=== PATIENT | male | born 1945 | race African-American/Black ===

== ENCOUNTER → 2017-04-11 | Outpatient (CLI) | payer OTHER ==
[~2017-04-11] MED LIST: ALLO300T80 PO; ASPI-435 PO; ATOR-54 PO; ENAL1TAB31 PO; INSHI7030 SC; INSHRIE SQ; MBC75 PO; METF1000 PO; METO50TA16 PO; NITR0.2D TD; NITR0.4S UT; TRIATAB3 PO; ZNTT/150 PO
[2017-04-11 17:34] LABS: HEMATOCRIT 29.7 % (42-52)
== END | disposition home or self-care (01) ==
LOC: C.LABSPEC 17:15
DX: Z01.89 Encounter for other specified special examinations (principal)

== ENCOUNTER 2019-04-15 20:55 | Inpatient (IN) ==
[2019-04-15 22:06] LABS: Basophils # (auto) 0.01 K/uL (0-0.2); Basophils % (auto) 0.2 %; Eosinophils # (auto) 0.03 K/uL (0-0.5); Eosinophils % (auto) 0.7 %; Hematocrit (blood only) 41.5 % (42-52); Hemoglobin 13.1 g/dL (14.0-18.0); Immature Granulocytes # (auto) 0.01 K/uL (0.00-0.02); Immature Granulocytes % (auto) 0.2 %; Lymphocytes # (auto) 0.81 K/uL (1.2-3.4); Lymphocytes % (auto) 18.5 %; Mean Corpuscular Hemoglobin 26.5 pg (25-34); Mean Corpuscular Hgb Conc 31.6 g/dL (32-36); Monocytes # (auto) 0.37 K/uL (0.11-0.59); Monocytes % (auto) 8.5 %; Neutrophils # (auto) 3.14 K/uL (1.4-6.5); Neutrophils % (auto) 71.9 %; Platelet Count 218 K/uL (130-400); RDW Coefficient of Variation 16.7 % (11.5-14.5); RDW Standard Deviation 51.1 fL (36.4-46.3); Red Blood Count 4.94 M/uL (4.7-6.1); White Blood Count 4.37 K/uL (4.8-10.8)
--- NOTE | 2019-04-15 22:09 | XRay Report ---
XR chest 1V portable HISTORY: Atypical Chest Pain COMPARISON: None. FINDINGS: The lungs are clear. No pleural effusions. No pneumothorax. The heart is mildly enlarged. N o evidence for pulmonary edema. IMPRESSION: Mild cardiomegaly. Electronically signed by: Valentin Zaman M.D. 04/15/2019 10:08 PM
[2019-04-15 22:17] LABS: INR 1.1 (0.9-1.1); Partial Thromboplastin Ratio 0.9; Partial Thromboplastin Time 23.9 Seconds (21.0-31.0); Prothrombin Time 11.6 Seconds (9.0-12.0)
[2019-04-15 22:22] LABS: Albumin Level 3.3 gm/dl (3.4-5.0); BUN Creatinine Ratio 14.3 (10-20); Calcium 9.2 mg/dl (8.5-10.1); Creatinine Clr Calc Pharmacy 64.9 ml/min; Est GFR (African American) 77.7; Est GFR (Non-African American) 67.1
[2019-04-15 22:41] LABS: Albumin Globulin Ratio 0.7 (0.9-2); Bilirubin,Total 0.8 mg/dl (0.2-1); Globulin 4.5 gm/dl (2.5-4.0); Total Protein 7.8 gm/dl (6.4-8.2); Troponin I 0.079 ng/ml (0-0.045)
[2019-04-15] MEDS ORDERED: ASPIRIN CHEW 324 MG PO STA (22:58)
[2019-04-15] MEDS ORDERED: SODIUM CHLORIDE 0.9% 1000ML 1,000 ML IV SCH (23:00)
[2019-04-15] MEDS ORDERED: Heparin IV Low Dose WITH Bolus STA (23:07)
[2019-04-15] MEDS ORDERED: HEPARIN SODIUM/DEXTROSE 25,000 UNITS/500 ML BAG IV SCH (23:15)
[2019-04-15] MEDS ORDERED: HEPARIN SOD (PORCINE) 1000 UNIT/ML 10 ML VIAL ONE (23:28)
[2019-04-15 23:49] LABS: Magnesium 2.2 mg/dl (1.8-2.4); Thyroid Stimulating Hormone 1.18 uIu/ml (0.300-4.500)
[2019-04-16] MEDS ORDERED: COUGH DROP (SUGAR FREE) LOZ 24 LOZ/1 BOX BUCCAL STA (00:01)
--- NOTE | 2019-04-16 00:02 | History & Physical Report ---
Date of Service April 16, 2019 Assessment & Plan (1) Acute non-ST elevation myocardial infarction (NSTEMI): hx CAD status post stent (1997, 1999 [facility]) hypertension, BP on the lower side hyperlipidemia on statin Rx DM 2 insulin requiring, BSG on the lower side at the ER GERD on H2 iron Anemia, unknown duration ? Possibly from intermittent hemorrhoidal bleed as per patient account past tobacco abuse PCU Aspirin, beta-iron (decrease maintenance dose for now given borderline BP), statin Rx Continue IV heparin started at the ER for ACS TTE, Cardiology consult RE ACS Check hemoglobin A1c, lipid profile Hold basal insulin for now given borderline hypoglycemia, ISS BG goal 140-80 Anemia work-up DVT prophylaxis. Heparin Full code History of Present Illness Chief Complaint: Chest pain Primary Care Provider: DESIRAE Quinn History obtained from patient and records. Medical history significant for CAD status post stent (1997, 1999 [facility]), hypertension, hyperlipidemia, gout, DM 2 insulin requiring, GERD, past tobacco abuse. Patient experience achy left-sided chest pain with diaphoresis and shortness of breath to anginal attack around 7:45 PM. Compliant with medications. No cough symptoms. Legs a little more swollen than usual. Has not seen a ham doctor for several years now. Left-sided throat discomfort without ear discomfort for a few days now. No fever, no chills. Currently pain-free at the emergency room. 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 Verified 04/16/19 00:15 SULFA Allergy Mild UNKNOWN Uncoded 02/02/19 11:59 Home Medications Home Medications Medication Instructions Recorded Confirmed Type alendronate 70 mg PO WK 02/02/19 04/15/19 History allopurinol 150 mg PO QAM 02/02/19 04/15/19 History aspirin 81 mg PO QAM 02/02/19 04/15/19 History atorvastatin 20 mg PO QAM 02/02/19 04/15/19 History calcium carbonate-vitamin D3 1 tab PO QAM 02/02/19 04/16/19 History [Calcium 600 + D(3)] duloxetine 60 mg PO QAM 02/02/19 04/16/19 History enalapril maleate 20 mg PO QAM 02/02/19 04/16/19 History metformin 1,000 mg PO BID 02/02/19 04/16/19 History metoprolol tartrate 100 mg PO BID 02/02/19 04/16/19 History nitroglycerin [Nitro-Dur] 1 patch TRANSDERMAL QAM 02/02/19 04/16/19 History nitroglycerin [Nitrostat] 0.4 mg SUBLINGUAL UD PRN 02/02/19 04/16/19 History acetaminophen 325 mg PO BID 04/15/19 04/15/19 History insulin NPH and regular human 20 unit SUBCUT QAM 04/16/19 04/16/19 History [Humulin 70/30 U-100 Insulin] insulin NPH and regular human 28 unit SUBCUT QPM 04/16/19 04/16/19 History [Humulin 70/30 U-100 Insulin] insulin regular human [Humulin R 1 sliding scale dose SUBCUT BID 04/16/19 04/16/19 History Regular U-100 Insuln] omeprazole 40 mg PO BID 04/16/19 04/16/19 History phenylephrine HCl [Hemorrhoidal 1 supp MT TID 04/16/19 04/16/19 History Suppository] ranitidine HCl 150 mg PO BID 04/16/19 04/16/19 History triamterene-hydrochlorothiazid 1 tab PO DAILY 04/16/19 04/16/19 History Past Med/Surg History Medical History CAD (coronary artery disease) Colon polyps Diabetes Diverticulitis Hyperlipidemia Surgical History History of heart artery stent Social History Preferred Language: Lao Visual Impairment: No Limitations 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: Normal Relief Pilot Required: No Beliefs That Will Affect Care: None Current Living Situation: Other Current Living Situation Comment: correctional facility Other Information That Helps Us Care for You: No Feels Safe at Home: Yes Smoking Status: Former smoker Tobacco Type: cigarettes ; Do You Dip or Chew Tobacco: No ; Hx Alcohol Use: No Hx Substance Use: No Review of Systems Review of Systems: As per HPI, all 10 systems reviewed, all other ROS negative Physical Exam Physical Exam: GENERAL: Comfortable, pleasant, no respiratory distress, obese SKIN: Normal color, warm HEENT: Bespectacled, pink palpebral conjunctivae, no ptosis, dry buccal mucosa, minimal pharyngeal congestion NECK : Supple, short neck, no tenderness CHEST : CTA, no tenderness HEART : RRR, no obvious murmurs ABDOMEN: Some distention, nontender EXTREMITIES : Bilateral LE swelling, no LE tenderness, no other conspicuous deformities noted NEUROLOGIC : Coherent, no facial asymmetry, no other gross focality Results & Data Vital Signs (Past 12 Hours) Vital Signs Temp Pulse Pulse Resp BP BP Pulse Ox 04/15/19 23:43 95 04/15/19 23:41 79 20 98/76 L 93 04/15/19 23:08 73 20 102/73 97 04/15/19 23:01 75 17 102/73 95 04/15/19 23:00 70 24 96 04/15/19 22:30 71 28 H 83/61 L 99 04/15/19 22:10 73 28 H 95 04/15/19 22:00 73 27 H 98/72 L 96 04/15/19 21:55 72 27 H 85/62 L 97 04/15/19 21:50 71 14 95 04/15/19 21:40 74 28 H 04/15/19 21:30 74 26 H 04/15/19 21:25 97 04/15/19 21:22 71 12 04/15/19 21:06 36.4 C L 73 26 H 95/69 L 97 04/15/19 21:05 75 24 95/69 L Laboratory Results Laboratory Results WBC 4.37 K/uL (4.8-10.8) L 04/15/19 21:48 RBC 4.94 M/uL (4.7-6.1) 04/15/19 21:48 Hgb 13.1 g/dL (14.0-18.0) L 04/15/19 21:48 Hct 41.5 % (42-52) L 04/15/19 21:48 MCV 84.0 fL (80-100) 04/15/19 21:48 MCH 26.5 pg (25-34) 04/15/19 21:48 MCHC 31.6 g/dL (32-36) L 04/15/19 21:48 RDW Std Deviation 51.1 fL (36.4-46.3) H 04/15/19 21:48 RDW Coeff of Maria Guadalupe 16.7 % (11.5-14.5) H 04/15/19 21:48 Plt Count 218 K/uL (130-400) 04/15/19 21:48 MPV 10.0 fL (7.4-10.4) 04/15/19 21:48 Immature Gran % (Auto) 0.2 % 04/15/19 21:48 Neut % (Auto) 71.9 % 04/15/19 21:48 Lymph % (Auto) 18.5 % 04/15/19 21:48 [place] % (Auto) 8.5 % 04/15/19 21:48 Eos % (Auto) 0.7 % 04/15/19 21:48 Baso % (Auto) 0.2 % 04/15/19 21:48 Immature Gran # (Auto) 0.01 K/uL (0.00-0.02) 04/15/19 21:48 Neut # (Auto) 3.14 K/uL (1.4-6.5) 04/15/19 21:48 Lymph # (Auto) 0.81 K/uL (1.2-3.4) L 04/15/19 21:48 [place] # (Auto) 0.37 K/uL (0.11-0.59) 04/15/19 21:48 Eos # (Auto) 0.03 K/uL (0-0.5) 04/15/19 21:48 Baso # (Auto) 0.01 K/uL (0-0.2) 04/15/19 21:48 PT 11.6 Seconds (9.0-12.0) 04/15/19 21:48 INR 1.1 (0.9-1.1) 04/15/19 21:48 APTT 23.9 Seconds (21.0-31.0) 04/15/19 21:48 PTT Ratio 0.9 04/15/19 21:48 Sodium 139 mmol/L (136-145) 04/15/19 21:48 Potassium 4.0 mmol/L (3.5-5.1) 04/15/19 21:48 Chloride 106 mmol/L (98-107) 04/15/19 21:48 Carbon Dioxide 28 mmol/L (21-32) 04/15/19 21:48 Anion Gap 5.0 (3-11) 04/15/19 21:48 BUN 15 mg/dl (7-18) 04/15/19 21:48 Creatinine 1.07 mg/dl (0.6-1.4) 04/15/19 21:48 Est Cr Clr Drug Dosing 64.9 ml/min 04/15/19 21:48 Est GFR ( Amer) 77.7 04/15/19 21:48 Est GFR (Non-Af Amer) 67.1 04/15/19 21:48 BUN/Creatinine Ratio 14.3 (10-20) 04/15/19 21:48 Glucose 72 mg/dl (70-99) 04/15/19 21:48 Calcium 9.2 mg/dl (8.5-10.1) 04/15/19 21:48 Magnesium 2.2 mg/dl (1.8-2.4) 04/15/19 21:48 Total Bilirubin 0.8 mg/dl (0.2-1) 04/15/19 21:48 AST 45 U/L (15-37) H 04/15/19 21:48 ALT 43 U/L (12-78) 04/15/19 21:48 Alkaline Phosphatase 179 U/L (45-117) H 04/15/19 21:48 Troponin I 0.079 ng/ml (0-0.045) H* 04/15/19 21:48 Total Protein 7.8 gm/dl (6.4-8.2) 04/15/19 21:48 Albumin 3.3 gm/dl (3.4-5.0) L 04/15/19 21:48 Globulin 4.5 gm/dl (2.5-4.0) H 04/15/19 21:48 Albumin/Globulin Ratio 0.7 (0.9-2) L 04/15/19 21:48 TSH 1.180 uIu/ml (0.300-4.500) 04/15/19 21:48 Diagnostic Findings Chest x-ray : Mild cardiomegaly EKG as per my interpretation : Rate 70, NSR, normal axis, T wave inversion anterolateral leads
[2019-04-16] MEDS ORDERED: ACETAMINOPHEN 325 MG TAB PO PRN (01:07)
[2019-04-16] MEDS ORDERED: CARBOHYDRATES FOR HYPOGLYCEMIA PO PRN (01:07)
[2019-04-16] MEDS ORDERED: DEXTROSE 50% 50 ML SYRINGE IV PRN (01:07)
[2019-04-16] MEDS ORDERED: NITROGLYCERIN SL 0.4 MG/TAB TAB SL PRN ×2 (01:07)
[2019-04-16] MEDS ORDERED: GLUCAGON FOR INJ 1 MG VIAL SQ PRN (01:07)
[2019-04-16] MEDS ORDERED: GLUCOSE 40% GEL 15 GM TUBE PO PRN (01:07)
[2019-04-16] MEDS ORDERED: ALBUT/IPRATROP 3MG/0.5MG NEB 3 ML VIAL NEB STA (01:07)
[2019-04-16] MEDS ORDERED: GLUCOSE 10 TABS/TUBE PO PRN (01:07)
--- NOTE | 2019-04-16 01:43 | Emergency Department Note ---
Entered by Vic Smith acting as a scribe for History of Present Illness General Chief complaint: Chest Pain Stated complaint: DIZZINESS, CHEST PAIN Time Seen by Provider: 04/15/19 22:05 Source: patient Limitations: no limitations History of Present Illness Onset (ago): hour(s) (earlier today) Location: chest Pain Consistency: + constant Quality: + constant Relieved By: + other (belching) Associated symptoms: + other (belching, trouble breathing) The patient is a 89 year old male who presents to the Emergency Room with complaints of constant chest pain starting earlier today. The patient states he was sitting down when he started to have chest pain. He notes he has difficulty breathing. He states he has been belching and belching makes the pain better. Home Medications Home Medications Medication Instructions Recorded Confirmed Type alendronate 70 mg PO WK 02/02/19 04/15/19 History allopurinol 150 mg PO QAM 02/02/19 04/15/19 History aspirin 81 mg PO QAM 02/02/19 04/15/19 History atorvastatin 20 mg PO QAM 02/02/19 04/15/19 History calcium carbonate-vitamin D3 1 tab PO QAM 02/02/19 04/16/19 History [Calcium 600 + D(3)] duloxetine 60 mg PO QAM 02/02/19 04/16/19 History enalapril maleate 20 mg PO QAM 02/02/19 04/16/19 History metformin 1,000 mg PO BID 02/02/19 04/16/19 History metoprolol tartrate 100 mg PO BID 02/02/19 04/16/19 History nitroglycerin [Nitro-Dur] 1 patch TRANSDERMAL QAM 02/02/19 04/16/19 History nitroglycerin [Nitrostat] 0.4 mg SUBLINGUAL UD PRN 02/02/19 04/16/19 History acetaminophen 325 mg PO BID 04/15/19 04/15/19 History insulin NPH and regular human 20 unit SUBCUT QAM 04/16/19 04/16/19 History [Humulin 70/30 U-100 Insulin] insulin NPH and regular human 28 unit SUBCUT QPM 04/16/19 04/16/19 History [Humulin 70/30 U-100 Insulin] insulin regular human [Humulin R 1 sliding scale dose SUBCUT BID 04/16/19 04/16/19 History Regular U-100 Insuln] omeprazole 40 mg PO BID 04/16/19 04/16/19 History phenylephrine HCl [Hemorrhoidal 1 supp FL TID 04/16/19 04/16/19 History Suppository] ranitidine HCl 150 mg PO BID 04/16/19 04/16/19 History triamterene-hydrochlorothiazid 1 tab PO DAILY 04/16/19 04/16/19 History Allergies Allergy/AdvReac Type Severity Reaction Status Date / Time Penicillins Allergy Unknown . 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 and A total of 10 systems reviewed and were otherwise negative Physical Exam Vital Signs Vital Signs - 24 hr 04/15/19 21:05 04/15/19 21:06 04/15/19 21:22 Temperature 36.4 C L Temperature Source Oral Sepsis Recent Fever Within 48 Hours No Sepsis Action Taken by Nursing No Action Required Pulse Rate 75 73 71 Pulse Rate [Right Finger] Pulse Rate from SpO2 Sensor Respiratory Rate 24 26 H 12 Respiratory Depth Shallow Respiratory Pattern Tachypnea Blood Pressure 95/69 L 95/69 L Blood Pressure [Right Radial Artery] Blood Pressure Mean 77 77 Blood Pressure Mean [Right Radial Artery] Pulse Oximetry 97 Oxygen Delivery Method Room Air Oxygen Flow Rate 04/15/19 21:25 04/15/19 21:30 04/15/19 21:40 Temperature Temperature Source Sepsis Recent Fever Within 48 Hours Sepsis Action Taken by Nursing Pulse Rate 74 74 Pulse Rate [Right Finger] Pulse Rate from SpO2 Sensor Respiratory Rate 26 H 28 H Respiratory Depth Respiratory Pattern Blood Pressure Blood Pressure [Right Radial Artery] Blood Pressure Mean Blood Pressure Mean [Right Radial Artery] Pulse Oximetry 97 Oxygen Delivery Method Room Air Oxygen Flow Rate 04/15/19 21:50 04/15/19 21:55 04/15/19 22:00 Temperature Temperature Source Sepsis Recent Fever Within 48 Hours Sepsis Action Taken by Nursing Pulse Rate 71 72 73 Pulse Rate [Right Finger] Pulse Rate from SpO2 Sensor 71 72 73 Respiratory Rate 14 27 H 27 H Respiratory Depth Respiratory Pattern Blood Pressure 85/62 L 98/72 L Blood Pressure [Right Radial Artery] Blood Pressure Mean 69 80 Blood Pressure Mean [Right Radial Artery] Pulse Oximetry 95 97 96 Oxygen Delivery Method Oxygen Flow Rate 04/15/19 22:10 04/15/19 22:30 04/15/19 23:00 Temperature Temperature Source Sepsis Recent Fever Within 48 Hours Sepsis Action Taken by Nursing Pulse Rate 73 71 70 Pulse Rate [Right Finger] Pulse Rate from SpO2 Sensor 74 71 71 Respiratory Rate 28 H 28 H 24 Respiratory Depth Respiratory Pattern Blood Pressure 83/61 L Blood Pressure [Right Radial Artery] Blood Pressure Mean 68 Blood Pressure Mean [Right Radial Artery] Pulse Oximetry 95 99 96 Oxygen Delivery Method Oxygen Flow Rate 04/15/19 23:01 04/15/19 23:08 04/15/19 23:41 Temperature Temperature Source Sepsis Recent Fever Within 48 Hours Sepsis Action Taken by Nursing Pulse Rate 75 Pulse Rate [Right Finger] 73 79 Pulse Rate from SpO2 Sensor 75 Respiratory Rate 17 20 20 Respiratory Depth Respiratory Pattern Blood Pressure 102/73 Blood Pressure [Right Radial Artery] 102/73 98/76 L Blood Pressure Mean 82 Blood Pressure Mean [Right Radial Artery] 82 83 Pulse Oximetry 95 97 93 Oxygen Delivery Method Room Air Nasal Cannula Oxygen Flow Rate 4 04/15/19 23:43 Temperature Temperature Source Sepsis Recent Fever Within 48 Hours Sepsis Action Taken by Nursing Pulse Rate Pulse Rate [Right Finger] Pulse Rate from SpO2 Sensor Respiratory Rate Respiratory Depth Respiratory Pattern Blood Pressure Blood Pressure [Right Radial Artery] Blood Pressure Mean Blood Pressure Mean [Right Radial Artery] Pulse Oximetry 95 Oxygen Delivery Method Nasal Cannula Oxygen Flow Rate 4 GENERAL: He is oriented to person, place, and time. He appears well-developed and well-nourished. He does not appear distressed. HENT: Exam performed. - Head: Normocephalic and atraumatic. - Right Ear: External ear normal. No mastoid tenderness. - Left Ear: External ear normal. No mastoid tenderness. - Mouth/Throat: The oropharynx is clear and moist. No trismus in the jaw. No dental abscesses or uvula swelling. No oropharyngeal exudate or tonsillar abscesses. EYES: Conjunctivae and EOM are normal. Pupils are equal, round, and reactive to light. Right eye exhibits no discharge. Left eye exhibits no discharge. No scleral icterus. NECK: Normal range of motion. Neck supple. No JVD present. No spinous process tenderness present. No carotid bruit present. No rigidity. No tracheal deviation and normal range of motion present. No Brudzinski's sign and no Kernig's sign noted. CV: Normal rate, regular rhythm, normal heart sounds and intact distal pulses. There is no peripheral edema. Palpable radial pulses bue. PULM/CHEST: Effort normal and breath sounds normal. No respiratory distress. No stridor. He has no wheezes. He has no rales. - Chest Wall: He exhibits no tenderness. ABD: The abdomen is soft. Bowel sounds are normal. He has no distension. No mass is present. There is no tenderness. There is no rebound, no guarding, no Pineda's sign and no tenderness at McBurney's point. Rovsig negative. MUSC/SKEL: Normal range of motion. There is no peripheral edema, tenderness or deformity. LYMPH: No cervical adenopathy. NEURO: He is alert and oriented to person, place, and time. He has normal strength. No cranial nerve deficit or sensory deficit. Coordination and gait normal. GCS eye subscore is 4. GCS verbal subscore is 5. GCS motor subscore is 6. Cerebellar tests wnl. SKIN: Skin is warm and dry. He is not diaphoretic. PSYCH: He has a normal mood and affect. Behavior is normal. Judgment and thought content normal. Course 2228: The patient was evaluated in room C8, and a complete history and physical examination were performed. EMR reviewed. Patient had a stress test on 09/16/18 which showed left ventricular ejection fracture at 23%. Lexiscan did no induce chest pain or EKG changes. Patient had a prior inferior preinfarction ischemia. 2310:. Vital signs stable. Labs show elevated troponin. Repeat EKG showed sinus rhythm at 74 BPM. FL and QRS intervals within normal limits. QTc is [address] elevation. No ST depression. TWI in lead 1 avL. Patient will be started on heparin drip and admitted to the hospital service for NSTEMI. I discussed the patient's case with Dr. Jana Lyn Hospitalist. He will evaluate the patient for further management. Administered Medications Heparin Sodium/Dextrose (Heparin Sodium/Dextrose) 25,000 units in 500 mls @ 19 mls/hr IV .Q24H NICHOLAS; Protocol Stop: 05/15/19 23:14 Last Admin: 04/15/19 23:34 Dose: 950 units/hr, 19 mls/hr Documented by: [id number] Cosigned by: [id number] Discontinued Medications Albuterol (Duoneb) 3 ml NEB NOW STA Stop: 04/16/19 01:08 Last Admin: 04/16/19 01:31 Dose: 3 ml Documented by: [id number] Aspirin (Aspirin) 324 mg PO NOW STA Stop: 04/15/19 22:59 Last Admin: 04/15/19 23:11 Dose: Not Given Documented by: [id number] Heparin Sodium (Porcine) (Heparin Iv Bolus) Confirm Administered Dose 10,000 units .ROUTE .STK-MED ONE Stop: 04/15/19 23:29 Last Admin: 04/15/19 23:35 Dose: 4,000 units Documented by: [id number] Cosigned by: [id number] Heparin Sodium/Dextrose () 1 ea N/A NOW STA; Protocol Stop: 04/15/19 23:08 Last Admin: 04/16/19 00:30 Dose: Not Given Documented by: [id number] Sodium Chloride (Nss 1000ml) 1,000 mls @ 125 mls/hr IV .Q8H NICHOLAS Stop: 05/15/19 22:59 Last Admin: 04/15/19 23:12 Dose: 125 mls/hr Documented by: [id number] Menthol (Nice) 1 richard BUCCAL NOW STA Stop: 04/16/19 00:02 Last Admin: 04/16/19 00:09 Dose: 1 richard Documented by: [id number] Medical Decision Making Medical Records Attestation: I reviewed the patient's medical records. Home Medications Current Medication List: was personally reviewed by me Laboratory Data Attestation: I reviewed the patient's lab results. Result diagrams: 04/15/19 21:48 04/15/19 21:48 Lab Results 04/15/19 04/15/19 04/15/19 Range/Units 21:48 21:48 21:48 WBC 4.37 L (4.8-10.8) K/uL RBC 4.94 (4.7-6.1) M/uL Hgb 13.1 L (14.0-18.0) g/dL Hct 41.5 L (42-52) % MCV 84.0 (80-100) fL MCH 26.5 (25-34) pg MCHC 31.6 L (32-36) g/dL RDW Std Deviation 51.1 H (36.4-46.3) fL RDW Coeff of Maria Guadalupe 16.7 H (11.5-14.5) % Plt Count 218 (130-400) K/uL MPV 10.0 (7.4-10.4) fL Immature Gran % (Auto) 0.2 % Neut % (Auto) 71.9 % Lymph % (Auto) 18.5 % [place] % (Auto) 8.5 % Eos % (Auto) 0.7 % Baso % (Auto) 0.2 % Immature Gran # (Auto) 0.01 (0.00-0.02) K/uL Neut # (Auto) 3.14 (1.4-6.5) K/uL Lymph # (Auto) 0.81 L (1.2-3.4) K/uL [place] # (Auto) 0.37 (0.11-0.59) K/uL Eos # (Auto) 0.03 (0-0.5) K/uL Baso # (Auto) 0.01 (0-0.2) K/uL PT 11.6 (9.0-12.0) Seconds INR 1.1 (0.9-1.1) APTT 23.9 (21.0-31.0) Seconds PTT Ratio 0.9 Sodium 139 (136-145) mmol/L Potassium 4.0 (3.5-5.1) mmol/L Chloride 106 (98-107) mmol/L Carbon Dioxide 28 (21-32) mmol/L Anion Gap 5.0 (3-11) BUN 15 (7-18) mg/dl Creatinine 1.07 (0.6-1.4) mg/dl Est Cr Clr Drug Dosing 64.9 ml/min Est GFR ( Amer) 77.7 Est GFR (Non-Af Amer) 67.1 BUN/Creatinine Ratio 14.3 (10-20) Glucose 72 (70-99) mg/dl Calcium 9.2 (8.5-10.1) mg/dl Magnesium 2.2 (1.8-2.4) mg/dl Total Bilirubin 0.8 (0.2-1) mg/dl AST 45 H (15-37) U/L ALT 43 (12-78) U/L Alkaline Phosphatase 179 H (45-117) U/L Troponin I 0.079 H* (0-0.045) ng/ml Total Protein 7.8 (6.4-8.2) gm/dl Albumin 3.3 L (3.4-5.0) gm/dl Globulin 4.5 H (2.5-4.0) gm/dl Albumin/Globulin Ratio 0.7 L (0.9-2) TSH 1.180 (0.300-4.500) uIu/ml Imaging Data Radiologist's Impression: Radiology results as stated below per my review and the radiologist's interpretation: XR chest 1V portable HISTORY: Atypical Chest Pain COMPARISON: None. FINDINGS: The lungs are clear. No pleural effusions. No pneumothorax. The heart is mildly enlarged. No evidence for pulmonary edema. IMPRESSION: Mild cardiomegaly. Electronically signed by: Valentin Zaman M.D. 04/15/2019 10:08 PM ECG Data Attestation: I personally reviewed and interpreted this ECG as follows: Indication: chest pain Rate (beats per minute): 71 Rhythm: sinus rhythm ECG Intervals/blocks: Normal QRS and Prolonged QT (Qtc is [address] ECG [address] segments: T-wave inversions (lead 1 in avL) ECG Findings: Other (No ST depression. No ST elevation. Normal FL interval. ) Additional Comments: Repeat EKG: Sinus rhythm at 74 BPM. FL and QRS interval within normal limits. QTc interval is [address] elevation. No ST depression. TWI in Lead 1 avL. Blood Pressure Blood Pressure Findings: Low blood pressure Blood Pressure Disposition: further management by hospitalist YECENIA Narrative 2228: The patient was evaluated in room C8, and a complete history and physical examination were performed. EMR reviewed. Patient had a stress test on 09/16/18 which showed left ventricular ejection fracture at 23%. Lexiscan did no induce chest pain or EKG changes. Patient had a prior inferior preinfarction ischemia. 2310:. Vital signs stable. Labs show elevated troponin. Repeat EKG showed sinus rhythm at 74 BPM. FL and QRS intervals within normal limits. QTc is [address] elevation. No ST depression. TWI in lead 1 avL. Patient will be started on heparin drip and admitted to the hospital service for NSTEMI. I discussed the patient's case with Dr. Jana Lyn Hospitalist. He will evaluate the patient for further management. Impression & Plan Acute non-ST elevation myocardial infarction (NSTEMI) Critical Care Time Critical Care Time: Yes Total Critical Care Time: 42 I have personally spent greater than 42 minutes of critical care time in the direct management of this patient. This includes bedside care, interpretation of diagnostic studies, and testing, discussion with consultants, patient, and family members, and other required patient management activities. This 42 minutes is in excess of all separately billable procedures. Discharge Plan Visit Data *Final* Discharge Date/Time: 04/16/19 00:44 Chief Complaint: Chest Pain Stated Complaint: DIZZINESS, CHEST PAIN ED Provider: Ezequiel Chavez Discharge Problem: Acute non-ST elevation myocardial infarction (NSTEMI) Patient Disposition: Admitted As Inpatient Discharge Instructions Interventions: ED Discharge Assessment Last Done: 04/16/19 00:44 The scribe's documentation has been prepared under my direction and personally reviewed by me in its entirety. I confirm that the note above accurately reflects all work, treatment, procedures, and medical decision making performed by me.
[2019-04-16] MEDS: INSULIN ASPART 100 UNITS/ML 3 ML PEN SC SCH ×5 (01:58→21:00)
[2019-04-16] MEDS: TRAMADOL HCL 50 MG TABLET PO PRN (03:20)
[2019-04-16] MEDS ORDERED: DEXTROSE 5% 1,000 ML IV SCH (04:00)
[2019-04-16 06:10] LABS: Hematocrit (blood only) 40.2 % (42-52); Hemoglobin 13.2 g/dL (14.0-18.0); Immature Granulocytes # (auto) 0.01 K/uL (0.00-0.02); Immature Granulocytes % (auto) 0.2 %; Lymphocytes # (auto) 0.73 K/uL (1.2-3.4); Lymphocytes % (auto) 18.1 %; Mean Corpuscular Hemoglobin 26.9 pg (25-34); Mean Corpuscular Hgb Conc 32.8 g/dL (32-36); Mean Platelet Volume 9.4 fL (7.4-10.4); Monocytes # (auto) 0.32 K/uL (0.11-0.59); Monocytes % (auto) 7.9 %; Neutrophils # (auto) 2.98 K/uL (1.4-6.5); Neutrophils % (auto) 73.8 %; Platelet Count 205 K/uL (130-400); RDW Coefficient of Variation 16.6 % (11.5-14.5); RDW Standard Deviation 49.6 fL (36.4-46.3); Reticulocyte % 1.1 % (0.5-2.0); Reticulocytes # 0.05 10^6/uL (0.02-0.10); White Blood Count 4.04 K/uL (4.8-10.8)
[2019-04-16 06:14] LABS: Estimated Average Glucose 197 mg/dl; Hemoglobin A1C 8.5 % (4.5-5.6)
[2019-04-16 06:20] LABS: BUN Creatinine Ratio 17.3 (10-20); Calcium 8.6 mg/dl (8.5-10.1); Creatinine Clr Calc Pharmacy 58.3 ml/min; Est GFR (African American) 67.7; Est GFR (Non-African American) 58.4; Potassium 4.2 mmol/L (3.5-5.1)
[2019-04-16 06:27] LABS: Ferritin 73.3 ng/ml (8-388); Troponin I 0.127 ng/ml (0-0.045)
--- NOTE | 2019-04-16 06:35 | XRay Report ---
XR chest 1V portable HISTORY: 74 years-old Male low o2 acute hypoxia COMPARISON: Chest radiograph 04/15/2019 TECHNIQUE: Portable AP view of the chest FINDINGS: Cardiac silhouette is mildly enlarged, unchanged. No overt pulmonary edema. There is no pneumothorax, pleural effusion, focal airspace consolidation or overt pulmonary edema. There is unchanged mild phillip nting of the costophrenic angles. IMPRESSION: Cardiomegaly without acute process. The above report was generated using voice recognition software. It may contain grammatical, syntax o r spelling errors. Electronically signed by: Jimmy Cruz M.D. 04/16/2019 6:34 AM
[2019-04-16] MEDS ORDERED: ALBUMIN 25% 50 ML IV ONE (06:36)
[2019-04-16 06:37] LABS: Partial Thromboplastin Time 54.5 Seconds (21.0-31.0)
[2019-04-16] MEDS ORDERED: SODIUM CHLORIDE 0.9% 500 ML IV ONE (06:46)
[2019-04-16] MEDS ORDERED: PERFLUTREN LIPID MICROSPHERE (DEFINITY) IV ONE (07:19)
[2019-04-16] MEDS ORDERED: D5W AND LACTATED RINGERS 1,000 ML IV SCH (08:00)
[2019-04-16 08:15] LABS: Folate (Folic Acid) 20.65 ng/ml (>5.38)
[2019-04-16] MEDS: DULOXETINE HCL 60 MG CAP PO SCH (08:59)
[2019-04-16] MEDS: ASPIRIN 81 MG ECTAB PO SCH (09:00)
[2019-04-16] MEDS: allopurinoL 300 MG TAB PO SCH (09:00)
[2019-04-16] MEDS: ATORVASTATIN 20 MG TAB PO SCH (09:00)
[2019-04-16] MEDS: METOPROLOL TARTRATE 25 MG TAB PO SCH ×2 (09:00→20:10)
--- NOTE | 2019-04-16 09:52 | Cardiology Consultation ---
Date of Consultation April 16, 2019 Assessment & Plan (1) Cardiomyopathy: (2) Acute non-ST elevation myocardial infarction (NSTEMI): Patient presents with symptoms of progressive easy fatigability, exertional shortness of breath, lower extremity edema that has a committed over the last f ew weeks, and chest discomfort. Echocardiogram revealed severe left ventricular systolic dysfunction with ejection fraction of less than 20%, mild left ventricular chamber dilatation, moderate to severe tricuspid regurgitation moderate severe mitral regurgitation. The etiology of the mitral regurgitation appears to be due to the cardiomyopathy with LV chamber dilatation and tethering of the sub-mitral valve apparatus with resultant mall coaptation and a centrally directed mitral regurgitation jet. Patient was hypotensive overnight, and was treated with gentle IV fluids at 80 mL/h. At present, he is feeling better, and his blood pressure is normalized, and I would stop his IV fluids now that we have his ejection fraction data. The patient is not aware of having a past history of low ejection fraction. In 2016 and outside echocardiogram revealed LVEF of 50 to 55%, in September 2018, nuclear stress testing performed at this institution revealed gated SPECT LVEF of 23%. Patient does have a mild elevation in his troponin levels of 0.079 and 0.127ng /ml, and subtle changes on his EKG with T wave inversions in the precordial leads and the high lateral leads that are new compared to several months ago. At present, I believe the patient needs to be stabilized from a medical standpoint. He has not been on appropriate evidence-based treatment for (presumed ischemic) cardia myopathy. He has not been on a beta-iron for example. He has been on TIMMY inhibitor. Short acting metoprolol tartrate has been initiated for now. Continue unfractioned heparin. It is critical to determine what his coronary anatomy was on the prior cardiac catheterization 1997 and 1999. I therefore completed a records release for Mindy. I called to the [facility] institution, and no catheterization anatomy data was available in the records there. We will keep patient n.p.o. further time being pending reassessment and review of his repeat EKG. History of Present Illness Attending Physician: Romaine Guzman MD History of Present Illness Jacobo Chavez is a 74 year old male -[place] inmate at [facility] seen in cardiology consultation per the request of Dr. Gonzalez for the evaluation of exertional shortness of breath, chest discomfort, concern for non- ST segment elevation myocardial infarction. The patient reports prior myocardial infarction and stenting on 2 occasions, the anatomical details are not available at this time. He states his initial cardiac catheterization took place in [place] in 1997 with stent placement at that time and he had a second cardiac catheterization with stent in [place] in 1999. He does not recall ever being diagnosed with a "cardiomyopathy "or congestive heart failure in the past. An attempt to obtain more detailed records regarding the patient, I called over to the [facility] and spoke to Dr Renae there. There is a report on a transthoracic echocardiogram performed in the intermediate in 2016 that described normal LVEF in the range of 50 to 55%. The patient apparently underwent a pharmacologic nuclear stress test at [facility] in September 2018. The patient tells me he had this test performed due to exertional shortness of breath. The report describes an inferolateral infarct with mild francine-infarct ischemia, and a calculated ejection fraction of 23%. The patient states that he has been having progressive shortness of breath for the last few weeks culminating in shortness of breath, a "anxious "feeling "and chest discomfort yesterday. EKG performed on presentation to the emergency room last night revealed sinus rhythm with low amplitude T wave inversions noted in the high lateral leads I and aVL, as well as the precordial leads that was new compared to a prior tracing on file performed in January of this year. A repeat EKG performed later last evening was relatively unchanged compared to the initial with ongoing new subtle T wave changes. A repeat to be performed this morning is currently pending. During my assessment of the patient in room 221-1 he was comfortable, and lying completely flat. He denies any current chest discomfort. Heparin was infusing as well as IV fluids at 80 mL's per hour. Transient hypotension was noted last night with systolic blood pressures in the 80s to 90s, this is improved with his most recent reading of 115/85 this morning. Echocardiogram was performed this morning and reviewed independently by the undersigned revealing findings of septal dyskinesis and severe global left ventricular hypokinesis to akinesis otherwise with an ejection fraction in the range of less than 20%. Moderate to severe mitral regurgitation was present. Moderate to severe tricuspid regurgitation was present with an estimated pulmonary artery systolic pressure of 45 mmHg. Family history-notable for diabetes, denies family history of ischemic heart disease Social history-inmate, denies illicit drug use. States he has been adherent to his current medication regimen. Allergies Allergy/AdvReac Type Severity Reaction Status Date / Time Penicillins Allergy Unknown . Verified 04/16/19 00:15 SULFA Allergy Mild UNKNOWN Uncoded 02/02/19 11:59 Home Medications Home Medications Medication Instructions Recorded Confirmed Type alendronate 70 mg PO WK 02/02/19 04/15/19 History allopurinol 150 mg PO QAM 02/02/19 04/15/19 History aspirin 81 mg PO QAM 02/02/19 04/15/19 History atorvastatin 20 mg PO QAM 02/02/19 04/15/19 History calcium carbonate-vitamin D3 1 tab PO QAM 02/02/19 04/16/19 History [Calcium 600 + D(3)] duloxetine 60 mg PO QAM 02/02/19 04/16/19 History enalapril maleate 20 mg PO QAM 02/02/19 04/16/19 History metformin 1,000 mg PO BID 02/02/19 04/16/19 History metoprolol tartrate 100 mg PO BID 02/02/19 04/16/19 History nitroglycerin [Nitro-Dur] 1 patch TRANSDERMAL QAM 02/02/19 04/16/19 History nitroglycerin [Nitrostat] 0.4 mg SUBLINGUAL UD PRN 02/02/19 04/16/19 History acetaminophen 325 mg PO BID 04/15/19 04/15/19 History insulin NPH and regular human 20 unit SUBCUT QAM 04/16/19 04/16/19 History [Humulin 70/30 U-100 Insulin] insulin NPH and regular human 28 unit SUBCUT QPM 04/16/19 04/16/19 History [Humulin 70/30 U-100 Insulin] insulin regular human [Humulin R 1 sliding scale dose SUBCUT BID 04/16/19 04/16/19 History Regular U-100 Insuln] omeprazole 40 mg PO BID 04/16/19 04/16/19 History phenylephrine HCl [Hemorrhoidal 1 supp MO TID 04/16/19 04/16/19 History Suppository] ranitidine HCl 150 mg PO BID 04/16/19 04/16/19 History triamterene-hydrochlorothiazid 1 tab PO DAILY 04/16/19 04/16/19 History Patient History Medical History CAD (coronary artery disease) Colon polyps Diabetes Diverticulitis Hyperlipidemia Surgical History History of heart artery stent Social History Preferred Language: Belarusian Visual Impairment: No Limitations 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: Normal Life Educator Required: No Beliefs That Will Affect Care: None Current Living Situation: Other Current Living Situation Comment: correctional facility Other Information That Helps Us Care for You: No Feels Safe at Home: Yes Smoking Status: Former smoker Tobacco Type: cigarettes ; Do You Dip or Chew Tobacco: No ; Hx Alcohol Use: No Hx Substance Use: No Review of Systems Review of Systems: All systems reviewed & are unremarkable except as noted in HPI & below Physical Exam Physical Exam: Temp Pulse Resp BP Pulse Ox 36.4 C L 78 18 115/85 95 04/16/19 07:33 04/16/19 07:33 04/16/19 07:33 04/16/19 07:33 04/16/19 07:33 Constitutional: WD/WN, vitals as above Respiratory: Auscultation: + diminished lung sounds (Mildly diminished breath sounds the bases); no crackles, no rales, no rhonchi and no wheezes Cardiovascular: Rate/Rhythm: regular rate Heart Sounds: + murmur (I/mineral 6 systolic murmur) Vessels: + JVD (Jugular venous distention to 3 cm) Extremities: + edema (Trace bilateral lower leg edema) Gastrointestinal (Abdomen): normal bowel sounds, soft, nontender, no hepatosplenomegaly Neurologic: PERRL, EOMI, accommodation nl, no face palsy, no dysarthria Results & Data Vital Signs (Past 12 Hours) Vital Signs Temp Pulse Pulse Resp BP BP BP 04/16/19 07:33 36.4 C L 78 18 115/85 04/16/19 03:00 36.4 C L 77 20 132/91 04/16/19 01:32 69 04/16/19 01:31 74 18 04/16/19 01:05 36.4 C L 66 20 106/82 04/16/19 01:00 68 20 04/16/19 00:37 76 20 116/90 04/15/19 23:43 04/15/19 23:41 79 20 98/76 L 04/15/19 23:08 73 20 102/73 04/15/19 23:01 75 17 102/73 04/15/19 23:00 70 24 04/15/19 22:30 71 28 H 83/61 L 04/15/19 22:10 73 28 H 04/15/19 22:00 73 27 H 98/72 L 04/15/19 21:55 72 27 H 85/62 L 04/15/19 21:50 71 14 04/15/19 21:40 74 28 H Pulse Ox 04/16/19 07:33 95 04/16/19 03:00 95 04/16/19 01:32 04/16/19 01:31 97 04/16/19 01:05 96 04/16/19 01:00 96 04/16/19 00:37 96 04/15/19 23:43 95 04/15/19 23:41 93 04/15/19 23:08 97 04/15/19 23:01 95 04/15/19 23:00 96 04/15/19 22:30 99 04/15/19 22:10 95 04/15/19 22:00 96 04/15/19 21:55 97 04/15/19 21:50 95 04/15/19 21:40 Laboratory Results Cardiac Enzymes 04/15/19 04/16/19 Range/Units 21:48 05:50 AST 45 H (15-37) U/L Troponin I 0.079 H* 0.127 H* (0-0.045) ng/ml Coagulation 04/15/19 04/16/19 Range/Units 21:48 05:50 PT 11.6 (9.0-12.0) Seconds APTT 23.9 54.5 H* (21.0-31.0) Seconds Lipids 04/16/19 Range/Units 05:50 Triglycerides 32 (0-150) mg/dl Cholesterol 98 (0-200) mg/dl HDL Cholesterol 47 mg/dl Cholesterol/HDL Ratio 2 CBC 04/15/19 04/16/19 Range/Units 21:48 05:50 WBC 4.37 L 4.04 L (4.8-10.8) K/uL RBC 4.94 4.90 (4.7-6.1) M/uL Hgb 13.1 L 13.2 L (14.0-18.0) g/dL Hct 41.5 L 40.2 L (42-52) % Plt Count 218 205 (130-400) K/uL Neut # (Auto) 3.14 2.98 (1.4-6.5) K/uL Lymph # (Auto) 0.81 L 0.73 L (1.2-3.4) K/uL [place] # (Auto) 0.37 0.32 (0.11-0.59) K/uL Eos # (Auto) 0.03 0.00 (0-0.5) K/uL Baso # (Auto) 0.01 0.00 (0-0.2) K/uL Comprehensive Metabolic Panel 04/15/19 04/16/19 Range/Units 21:48 05:50 Sodium 139 139 (136-145) mmol/L Potassium 4.0 4.2 (3.5-5.1) mmol/L Chloride 106 107 (98-107) mmol/L Carbon Dioxide 28 24 (21-32) mmol/L BUN 15 21 H (7-18) mg/dl Creatinine 1.07 1.20 (0.6-1.4) mg/dl Glucose 72 85 (70-99) mg/dl Calcium 9.2 8.6 (8.5-10.1) mg/dl AST 45 H (15-37) U/L ALT 43 (12-78) U/L Alkaline Phosphatase 179 H (45-117) U/L Total Protein 7.8 (6.4-8.2) gm/dl Albumin 3.3 L (3.4-5.0) gm/dl Intake and Output 04/15/19 04/16/19 04/16/19 22:59 06:59 14:59 Intake Total 1771.750 / 1771.750 Balance 1771.750 / 1771.750 Intake: IV 1771.750 / 1771.750 D5w and Lactated Ringers 1,000 121.333 / 121.333 ml @ 80 mls/hr IV .[id number] [facility] Rx#:[id number] HEPARIN SODIUM/DEXTROSE 25,000 150.417 / 150.417 units In 500 ml @ 950 UNITS/HR 19 mls/hr IV .Q24H [facility] Rx#: [id number] Nss 1000ML 1,000 ml @ 125 mls/ 1000 / 1000 hr IV .Q8H [facility] Rx#:[id number] Nss 500 ml @ 500 mls/hr IV .Q1H 500 / 500 ONE Rx#:[id number] Other: Other Intake Source NPO/CHIPS Weight 92.8 kg 92.3 kg Medications Administered Current Inpatient Medications Acetaminophen (Tylenol) 650 mg PO Q4H PRN PRN Reason: Pain or Fever Stop: 05/16/19 01:06 Allopurinol (Zyloprim) 150 mg PO [facility] Stop: 05/16/19 08:59 Last Admin: 04/16/19 09:00 Dose: 150 mg Documented by: Aspirin (Ecotrin Ectab) 81 mg PO [facility] Stop: 05/16/19 08:59 Last Admin: 04/16/19 09:00 Dose: 81 mg Documented by: Atorvastatin Calcium (Lipitor) 20 mg PO [facility] Stop: 05/16/19 08:59 Last Admin: 04/16/19 09:00 Dose: 20 mg Documented by: Dextrose (Dextrose 50%) 25 - 50 ml IV UD PRN; Protocol PRN Reason: Hypoglycemia Protocol Stop: 05/16/19 01:06 Duloxetine HCl (Cymbalta) 60 mg PO [facility] Stop: 05/16/19 08:59 Last Admin: 04/16/19 08:59 Dose: 60 mg Documented by: Glucagon (Glucagen) 1 mg SQ UD PRN; Protocol PRN Reason: Hypoglycemia Protocol Stop: 05/16/19 01:06 Glucose (Glucose 40%) 15 - 30 gm PO UD PRN; Protocol PRN Reason: Hypoglycemia Protocol Stop: 05/16/19 01:06 Glucose (Dex4 Glucose) 4 - 8 tabs PO UD PRN; Protocol PRN Reason: Hypoglycemia Protocol Stop: 05/16/19 01:06 Heparin Sodium/Dextrose (Heparin Sodium/Dextrose) 25,000 units in 500 mls @ 19 mls/hr IV .Q24H [facility]; Protocol Stop: 05/15/19 23:14 Last Titration: 04/16/19 07:29 Dose: 950 units/hr, 19 mls/hr Documented by: Promethazine HCl 12.5 mg/ (Sodium Chloride) 50.5 mls @ 202 mls/hr IV Q6H PRN PRN Reason: Nausea And Vomiting Stop: 05/16/19 01:06 Insulin Aspart (Novolog Flexpen) 0 units SC ACHS [facility] Stop: 05/16/19 01:06 Last Admin: 04/16/19 07:56 Dose: Not Given Documented by: Menthol (Nice) 1 richard BUCCAL Q2H PRN PRN Reason: Sore Throat Stop: 05/16/19 01:06 Metoprolol Tartrate (Lopressor) 12.5 mg PO BID [facility] Stop: 05/16/19 08:59 Last Admin: 04/16/19 09:00 Dose: 12.5 mg Documented by: Miscellaneous (Carbohydrates For Hypoglycemia) 15 - 30 gm PO UD PRN PRN Reason: Hypoglycemia Protocol Stop: 05/16/19 01:06 Nitroglycerin (Nitrostat) 0.4 mg SL UD PRN PRN Reason: Chest Pain Stop: 05/16/19 01:06 Tramadol HCl (Ultram) 25 mg PO Q4H PRN PRN Reason: Pain Stop: 05/16/19 01:06 Last Admin: 04/16/19 03:20 Dose: 25 mg Documented by: Outpatient medication list acetaminophen Alendronate Allopurinol Aspirin 81 mg daily Atorvastatin 20 mg daily Calcium plus vitamin D Duloxetine 60 mg daily in the morning Enalapril 20 mg daily in the morning Insulin NPH/regular 70/30: 20 units in a.m., 28 units in p.m. Metformin 100 mg twice daily Transdermal nitroglycerin patch 0.4 mg/h every a.m. Omeprazole 40 mg twice daily Ranitidine 150 mg twice daily Triamterene/hydrochlorothiazide 1 tablet by mouth daily
[2019-04-16] MEDS ORDERED: NiCARDipine HCL INJ 2.5 MG/ML 10 ML AMP ONE (12:01)
[2019-04-16] MEDS ORDERED: HEPARIN (PORCINE) 1000 UNIT/ML 10 ML (CATH LAB USE ONLY) ONE (12:01)
[2019-04-16] MEDS ORDERED: NITROGLYCERIN/D5W 100MCG/ML 20ML SYR ONE (12:02)
[2019-04-16] MEDS ORDERED: fentaNYL citrate 100 MCG/2 ML VIAL ONE (12:02)
[2019-04-16] MEDS ORDERED: MIDAZOLAM HCL 1 MG/ML 2ML VIAL ONE (12:02)
--- NOTE | 2019-04-16 13:08 | Post Anesthesia Assessment ---
Date of Service April 16, 2019 Post Sedation Assessment Vital Signs Temp Pulse Pulse Resp BP BP BP 04/16/19 11:33 97.7 F 73 18 119/79 04/16/19 08:00 70 04/16/19 07:33 97.5 F L 78 18 115/85 04/16/19 03:00 97.5 F L 77 20 132/91 04/16/19 01:32 69 04/16/19 01:31 74 18 04/16/19 01:05 97.5 F L 66 20 106/82 04/16/19 01:00 68 20 04/16/19 00:37 76 20 116/90 04/15/19 23:43 04/15/19 23:41 79 20 98/76 L 04/15/19 23:08 73 20 102/73 04/15/19 23:01 75 17 102/73 04/15/19 23:00 70 24 04/15/19 22:30 71 28 H 83/61 L 04/15/19 22:10 73 28 H 04/15/19 22:00 73 27 H 98/72 L 04/15/19 21:55 72 27 H 85/62 L 04/15/19 21:50 71 14 04/15/19 21:40 74 28 H 04/15/19 21:30 74 26 H 04/15/19 21:25 04/15/19 21:22 71 12 04/15/19 21:06 97.5 F L 73 26 H 95/69 L 04/15/19 21:05 75 24 95/69 L Pulse Ox 04/16/19 11:33 100 04/16/19 08:00 04/16/19 07:33 95 04/16/19 03:00 95 04/16/19 01:32 04/16/19 01:31 97 04/16/19 01:05 96 04/16/19 01:00 96 04/16/19 00:37 96 04/15/19 23:43 95 04/15/19 23:41 93 04/15/19 23:08 97 04/15/19 23:01 95 04/15/19 23:00 96 04/15/19 22:30 99 04/15/19 22:10 95 04/15/19 22:00 96 04/15/19 21:55 97 04/15/19 21:50 95 04/15/19 21:40 04/15/19 21:30 04/15/19 21:25 97 04/15/19 21:22 04/15/19 21:06 97 04/15/19 21:05 Recovery Score Activity: Moves 4 extremities Respiration: Deep Breath/Cough Circulation: +/-20% PreAnes Value Consciousness: Fully Awake Oxygen Saturation: O2 needed for >90% Discharge Sedation Level of Care: Fast Track Phase II Post Sedation Plan On clinical assessment, the patient appears to have tolerated the sedation without complications. Patient is recovering as anticipated. Patient will continue to be monitored by nursing and may be discharged when sedation discharge criteria are met per below protocol. Upon Completions of procedure and additional 15 minutes continue every 5 minute vital signs and the P.A.R. score; then discharge to a Phase I or Fast Track to Phase II per the following guidelines: * Discharge Patient to appropriate Phase II area if PAR is 8 or greater or return to pre- procedure baseline. The post - procedure orders will be as directed. * If PAR score is less than 8 or not return to pre-procedure baseline then patient will follow Phase I monitoring till PAR is reached for Phase II. The Phase I may be done in procedure room or may call to secure a Phase I area. * If naloxone or flumazenil are used for reversal, hold in Phase I for continued monitoring from when last reversal dose was given for a minimum of 60 minutes or longer pending the nurse and/or physician discretion of patient condition before discharge to Phase II. Please call the Sedation Physician to re-evaluate and complete post-note for discharge to Phase II area. Do NOT discharge from procedure sedation or Phase 1 until post- sedation evaluation note is complete by procedure /sedation MD Sedation Discharge Instructions to be given to the patient at discharge to home.
--- NOTE | 2019-04-16 13:08 | Pre Anesthesia Assessment ---
Date of Service April 16, 2019 Pre Sedation Assessment Vital Signs Temp Pulse Pulse Resp BP BP BP 04/16/19 11:33 97.7 F 73 18 119/79 04/16/19 08:00 70 04/16/19 07:33 97.5 F L 78 18 115/85 04/16/19 03:00 97.5 F L 77 20 132/91 04/16/19 01:32 69 04/16/19 01:31 74 18 04/16/19 01:05 97.5 F L 66 20 106/82 04/16/19 01:00 68 20 04/16/19 00:37 76 20 116/90 04/15/19 23:43 04/15/19 23:41 79 20 98/76 L 04/15/19 23:08 73 20 102/73 04/15/19 23:01 75 17 102/73 04/15/19 23:00 70 24 04/15/19 22:30 71 28 H 83/61 L 04/15/19 22:10 73 28 H 04/15/19 22:00 73 27 H 98/72 L 04/15/19 21:55 72 27 H 85/62 L 04/15/19 21:50 71 14 04/15/19 21:40 74 28 H 04/15/19 21:30 74 26 H 04/15/19 21:25 04/15/19 21:22 71 12 04/15/19 21:06 97.5 F L 73 26 H 95/69 L 04/15/19 21:05 75 24 95/69 L Pulse Ox 04/16/19 11:33 100 04/16/19 08:00 04/16/19 07:33 95 04/16/19 03:00 95 04/16/19 01:32 04/16/19 01:31 97 04/16/19 01:05 96 04/16/19 01:00 96 04/16/19 00:37 96 04/15/19 23:43 95 04/15/19 23:41 93 04/15/19 23:08 97 04/15/19 23:01 95 04/15/19 23:00 96 04/15/19 22:30 99 04/15/19 22:10 95 04/15/19 22:00 96 04/15/19 21:55 97 04/15/19 21:50 95 04/15/19 21:40 04/15/19 21:30 04/15/19 21:25 97 04/15/19 21:22 04/15/19 21:06 97 04/15/19 21:05 Cardiovascular RRR, no murmur, no edema Respiratory normal respiratory effort, lungs clear to auscultation Pre-Sedation Airway Assessment Smoking Status: Former smoker Hx Sleep Apnea: No Hx Difficult Intubation: No Short, Thick Neck: No Thyromental Distance: > or= 3.5 Finger Breadths Mallampati Class: II ASA: ASA3 Procedure Planning Contraindications for Sedation: none Current Medications Reviewed: Yes Notes The planned sedation has been discussed with the patient. Informed Consent was obtained. I have identified the patient, determined the appropriateness of sedation and have assessed the patient immediately prior to the procedure. All medicine(s) and interventions are by my order.
--- NOTE | 2019-04-16 13:20 | Cardiac Catheterization ---
[facility] Data: Slash Trimmer Cardiac Status Clinical evaluation leading to the procedure CAD Presenation: Non STEMI Anginal Classification: CCS III Heart Failure: NYHA Class: CCS IV Cardiogenic Shock within 24 Hours: No Cardiac Arrest within 24 Hours: No Imaging Studies Past 6 Months: Yes Stress Studies Past 6 Months: No Diagnostic Physicians Name: Lauri Lozano MD Status: Elective Closure Device Percutaneous Entry Location: Radial Closure Device: Radial Band Recommendations: Medical Therapy and/or Counseling Intraprocedure Events Significant Disection: No Perforation: No Cardiac Cath Procedure Full Procedure Date April 16, 2019 Pre-Procedure Diagnosis Pre-Procedure Diagnosis: Acute Coronary Syndrome and Cardiomyopathy AUC Score AUC Score: 7 Post-Procedure Diagnosis Post-Procedure Diagnosis: Severe CAD and Elevated Intracardiac Pressures Procedure(s) Performed Procedure(s) Performed: Coronary Angiography and Left Heart Cath Rehab Assistant Lauri Lozano MD Supervisor Building Maintenance(s) Blake Estimated Blood Loss Estimated Blood Loss: 5 Medication(s) Medication(s): Fentanyl, Lidocaine 1%, Nitroglycerin and Versed Summary of Findings Indication: Severe LV dysfunction, mildly elevated troponin Access: 6 Fr right radial artery Catheters: [place], pigtail Findings: LM -large caliber vessel without significant disease LAD -large caliber vessel, 30% proximal to mid disease 30 to 40% latemid at takeoff of second septal, severe 80 to 90% disease in small, distal segment as wraps around apex. First diagonal 100% occluded and fills retrograde via left to left collaterals. Circumflex -moderate caliber vessel. High first OM with 95% proximal stenosis. Small mid to distal circumflex with moderate diffuse disease. RCA -dominant, 100% proximal chronic total occlusion. PDA fills via left to right collaterals LVEDP - 27 Arterial Closure: TR band Summary: 1. Severe multivessel coronary artery disease -100% proximal RCA chronic total occlusion. PDA fills via left to right collaterals. 95% moderate caliber high OM1 80 to 90% small, distal LAD as wraps around apex. 100% ostial first diagonal fills via left to left collaterals. 2. Elevated intracardiac filling pressure Recommendations: Guideline directed medical therapy for cardiomyopathy, diuretics, antianginal therapy per Dr. Roldan Hemodynamics Rest Ao:: 108/77/109 Final Ao: 122/76/95 LV: 116/27 Recommendations Recommendations: Medical Therapy and/or Counseling Specimens Specimens: None Radiation Exposure (mGy) 1111 Contrast (mls) 40 Fluids (cc crystalloids) Fluids (cc crystalloids): 58 Drains Drains: None Anesthesia Moderate Procedural Complication(s) None I attest to the content of the Intraoperative Record and any orders documented therein. Any exceptions are noted below.
--- NOTE | 2019-04-16 21:38 | Hospitalist Progress Note ---
Date of Service April 16, 2019 Assessment & Plan (1) Acute non-ST elevation myocardial infarction (NSTEMI): Presented to ED with chest pain. History of coronary artery disease with remote history of PCI, details not available. Initial troponin 0 0.079. Repeat troponin 0 0.127. Initial EKG demonstrated sinus rhythm at 70/minute with anterolateral T wave changes. Treated with aspirin, IV heparin, metoprolol, and atorvastatin. Cardiology consulted. Echocardiogram demonstrated global hypokinesis of left ventricle with estimated LVEF less than 20%. Cardiac catheterization was recommended and demonstrated multivessel disease with complete occlusion of RCA with [id number] collaterals, 95% stenosis OM1, 80 to 90% stenosis of distal LAD, complete occlusion of ostial first diagonal wi th collaterals. Medical management was recommended. Ongoing management per Cardiology. (2) Cardiomyopathy: Chest x-ray showed cardiomegaly without pulmonary edema. Echocardiogram demonstrated LVEF less than 20%. Probable ischemic cardiomyopathy. Management per Cardiology. (3) Hypertension: Titration of cardiovascular medications per Cardiology. (4) Dyslipidemia: LDL-C = 45. Continue atorvastatin. (5) Diabetes mellitus type 2 with complications: Diabetes mellitus type 2, complicated by ischemic heart disease. Usually managed with insulin 70/30, regular insulin, and metformin. Random glucose at time of admission was 72. Hemoglobin A1c 8.5. Glycemic management per basal/bolus insulin protocol. Fasting blood sugar today = 82. (6) GERD (gastroesophageal reflux disease): Continue PPI. (7) Anemia: Hemoglobin at time of admission was 13.1. MCV 84. Iron 56, TIBC 341, transferrin 277, ferritin 73, folate 20, vitamin B12 1054. Patient reports rectal bleeding attributed to hemorrhoids. Colonoscopy should be considered if not recently done, but cardiac risk may be prohibitive. (8) DVT prophylaxis: Initially received IV heparin for non-STEMI. Transition to SQ heparin. Ambulate. (9) Discharge planning issues: Anticipated return to [facility] under care of medical team there. Will need ongoing follow-up with Cardiology. Subjective Recheck for multiple problems. Patient seen in their room around 1350. Cardiac catheterization performed by Dr. Lozano. Found to have multivessel coronary disease with collaterals. Medical management recommended. No chest pain or shortness of breath. Review of Systems: Constitutional- no fever. Cardiac- as noted above. Pulmonary- no cough or SOB. GI- no nausea, vomiting, diarrhea, melena, hematochezia. - no urinary symptoms. Otherwise, as noted above. Physical Exam Constitutional: no acute distress Respiratory: no respiratory distress Auscultation: lungs clear to auscultation bilaterally Cardiovascular: Rate/Rhythm: regular rate and regular rhythm Heart Sounds: no gallop, no murmur and no cardiac rub Vessels: + JVD Extremities: + edema (trace); no calf tenderness Gastrointestinal (Abdomen): normal bowel sounds, soft, nontender, no hepatosplenomegaly Musculoskeletal: compression band applied to right wrist Skin: no rashes, warm and dry Psychiatric: Orientation: alert and oriented x 3 Results & Data Vital Signs (Past 12 Hours) Vital Signs Temp Pulse Pulse Resp BP BP Pulse Ox 04/16/19 19:23 36.8 C 74 20 107/51 L 100 04/16/19 18:33 80 18 115/77 96 04/16/19 18:03 76 18 125/82 98 04/16/19 17:33 80 18 130/89 96 04/16/19 17:05 86 18 130/68 98 04/16/19 16:33 80 18 115/82 96 04/16/19 16:03 78 18 124/83 99 04/16/19 15:34 79 18 128/86 99 04/16/19 15:20 36.4 C L 78 18 124/86 124/78 97 04/16/19 15:04 79 18 118/84 98 04/16/19 15:02 99 04/16/19 15:00 75 86 L 04/16/19 14:50 77 18 117/82 96 04/16/19 14:35 78 18 112/78 94 04/16/19 14:05 64 18 169/89 H 94 04/16/19 13:50 60 18 125/82 96 04/16/19 13:30 36.4 C L 72 75 18 127/89 96 04/16/19 13:20 75 18 124/92 94 04/16/19 13:15 75 18 123/89 94 04/16/19 13:10 70 18 123/89 94 04/16/19 11:33 36.5 C 73 18 119/79 100 Laboratory Results 04/16/19 05:50 04/16/19 05:50 ECG Additional Comments: EKG performed at 0945 reviewed and demonstrated normal sinus rhythm at 74/minute, inverted and biphasic T waves in anterolateral precordial leads, QTC =521 ms.
[2019-04-16] MEDS: HEPARIN SOD 5,000 UNIT/0.5 ML VIAL SQ SCH (21:59)
[2019-04-17] MEDS: PROMETHAZINE HCL 12.5 MG in SODIUM CHLORIDE 0.9% 50 ML IV PRN ×3 (00:17→23:43)
[2019-04-17] MEDS: HEPARIN SOD 5,000 UNIT/0.5 ML VIAL SQ SCH ×3 (05:51→21:02)
[2019-04-17 08:05] LABS: Albumin Level 3.1 gm/dl (3.4-5.0); BUN Creatinine Ratio 22.3 (10-20); Bilirubin Direct 1.5 mg/dl (0-0.2); Bilirubin,Total 2.5 mg/dl (0.2-1); Creatinine Clr Calc Pharmacy 41.8 ml/min; Est GFR (African American) 45.7; Est GFR (Non-African American) 39.4; Potassium 4.9 mmol/L (3.5-5.1); Total Protein 7.4 gm/dl (6.4-8.2)
[2019-04-17] MEDS: INSULIN ASPART 100 UNITS/ML 3 ML PEN SC SCH ×4 (08:59→21:04)
[2019-04-17] MEDS: ASPIRIN 81 MG ECTAB PO SCH (09:00)
[2019-04-17] MEDS: DULOXETINE HCL 60 MG CAP PO SCH (09:00)
[2019-04-17] MEDS: METOPROLOL TARTRATE 25 MG TAB PO SCH ×2 (09:00→21:02)
[2019-04-17] MEDS: ATORVASTATIN 20 MG TAB PO SCH (09:00)
[2019-04-17] MEDS: allopurinoL 300 MG TAB PO SCH (09:00)
[2019-04-17] MEDS ORDERED: SODIUM CHLORIDE 0.9% 500 ML IV SCH (11:45)
--- NOTE | 2019-04-17 12:01 | Cardiology Progress Note ---
Date of Service April 17, 2019 Assessment & Plan (1) Acute non-ST elevation myocardial infarction (NSTEMI): (2) Cardiomyopathy: (3) Dyslipidemia: (4) MERRILL (acute kidney injury): Patient without any additional symptoms to suggest angina. EKG reveals stable findings today. He is stable from hemodynamic and rhythm standpoint, blood pressure is actually much improved compared to initial presenting blood pressure which had transiently been low with systolic measurements in the 80s to 90s on his first night in the hospital. His most recent blood pressure reading was 130/83 Patient underwent diagnostic cardiac catheterization 04/16/2019 with the following findings: Severe multivessel coronary artery disease -100% proximal RCA chronic total occlusion. PDA fills via left to right collaterals. 95% moderate caliber high OM1 80 to 90% small, distal LAD as wraps around apex. 100% ostial first diagonal fills via left to left collaterals. -I reviewed the images of the patient's nuclear stress test that took place in September,, and I agree with the report that there is a large fixed inferior and inferolateral perfusion defect that correlates well with the 100% proximal occlusion of the right coronary artery with resultant infarction in that territory. The RCA territory is well collateralized with [id number] collaterals. -It appears that his degree of severe LV systolic dysfunction is somewhat out of proportion to the degree of coronary disease, and medication management is going to be pursued. He had not previously been on a beta-iron, and this is been initiated. We will continue short acting metoprolol tartrate at present. Patient complains of dizziness, and his kidney function is worse than yesterday with acute kidney injury, creatinine 1.6. We will proceed with a cautious course of IV fluids, normal saline, 80 mL's per hour x500 mL. Although the patient's left ventricular end-diastolic pressure was elevated at time cardiac authorization yesterday at 27 mmHg, he has presenting symptoms are suggestive of low cardiac output rather than volume overload. Continue subcutaneous heparin for DVT prophylaxis. Subjective Chief complaint: Follow-up chest pain, shortness of breath, new complaint of diz ziness Subjective: Patient resting comfortably. Denies any chest discomfort or shortness of breath at present, but does note dizziness. Telemetry reveals sinus rhythm in the 70 to 80 bpm range with occasional isolated premature ventricular contractions. There is been no significant arrhythmias since an 11 beat giovana of nonsustained ventricular tachycardia was observed on 04/16/2019 at 11 AM. Review of Systems Review of Systems: All systems reviewed & are unremarkable except as noted in HPI & below Physical Exam Physical Exam: Temp Pulse Resp BP Pulse Ox 36.5 C 78 22 130/83 95 04/17/19 11:26 04/17/19 11:26 04/17/19 11:26 04/17/19 11:26 04/17/19 11:26 Constitutional: WD/WN, vitals as above Respiratory: normal respiratory effort, lungs clear to auscultation Cardiovascular: RRR, no murmur, no edema Vessels: no JVD Extremities: no edema Gastrointestinal (Abdomen): normal bowel sounds, soft, nontender, no hepatosplenomegaly Neurologic: PERRL, EOMI, accommodation nl, no face palsy, no dysarthria Results & Data Vital Signs (Past 12 Hours) Vital Signs Temp Pulse Pulse Resp BP BP Pulse Ox 04/17/19 11:26 36.5 C 78 22 130/83 95 04/17/19 07:26 80 04/17/19 07:09 36.5 C 78 20 143/94 H 95 04/17/19 04:44 36.7 C 78 18 110/78 96 04/17/19 00:00 78 Laboratory Results Cardiac Enzymes 04/17/19 Range/Units 07:17 AST 341 H (15-37) U/L Comprehensive Metabolic Panel 04/17/19 Range/Units 07:17 Sodium 134 L (136-145) mmol/L Potassium 4.9 D (3.5-5.1) mmol/L Chloride 103 (98-107) mmol/L Carbon Dioxide 21 (21-32) mmol/L BUN 37 H D (7-18) mg/dl Creatinine 1.66 H D (0.6-1.4) mg/dl Glucose 126 H (70-99) mg/dl Calcium 9.0 (8.5-10.1) mg/dl Direct Bilirubin 1.5 H (0-0.2) mg/dl AST 341 H (15-37) U/L ALT 246 H (12-78) U/L Alkaline Phosphatase 246 H (45-117) U/L Total Protein 7.4 (6.4-8.2) gm/dl Albumin 3.1 L (3.4-5.0) gm/dl Intake and Output 04/16/19 04/17/19 04/17/19 22:59 06:59 14:59 Intake Total 250 / 2510.150 401.0 / 2510.150 Output Total 125 / 425 Balance 250 / 2085.150 276.0 / 2085.150 Intake: IV 101.0 / 1960.150 Phenergan 12.5 mg In Nss 50 ml 101.0 / 101.0 @ 202 mls/hr IV Q6H PRN Rx#: [id number] Oral 250 / 550 300 / 550 Output: Urine 125 / 425 Other: Weight 92.3 kg 90.9 kg Diagnostic Findings EKG this morning reveals normal sinus rhythm at 83 bpm, T wave inversions noted in the precordial leads yesterday have been replaced by diffuse T wave flattening. Medications Administered Current Inpatient Medications Acetaminophen (Tylenol) 650 mg PO Q4H PRN PRN Reason: Pain or Fever Stop: 05/16/19 01:06 Allopurinol (Zyloprim) 150 mg PO [facility] Stop: 05/16/19 08:59 Last Admin: 04/17/19 09:00 Dose: 150 mg Documented by: Aspirin (Ecotrin Ectab) 81 mg PO [facility] Stop: 05/16/19 08:59 Last Admin: 04/17/19 09:00 Dose: 81 mg Documented by: Atorvastatin Calcium (Lipitor) 20 mg PO [facility] Stop: 05/16/19 08:59 Last Admin: 04/17/19 09:00 Dose: 20 mg Documented by: Dextrose (Dextrose 50%) 25 - 50 ml IV UD PRN; Protocol PRN Reason: Hypoglycemia Protocol Stop: 05/16/19 01:06 Duloxetine HCl (Cymbalta) 60 mg PO [facility] Stop: 05/16/19 08:59 Last Admin: 04/17/19 09:00 Dose: 60 mg Documented by: Glucagon (Glucagen) 1 mg SQ UD PRN; Protocol PRN Reason: Hypoglycemia Protocol Stop: 05/16/19 01:06 Glucose (Glucose 40%) 15 - 30 gm PO UD PRN; Protocol PRN Reason: Hypoglycemia Protocol Stop: 05/16/19 01:06 Glucose (Dex4 Glucose) 4 - 8 tabs PO UD PRN; Protocol PRN Reason: Hypoglycemia Protocol Stop: 05/16/19 01:06 Heparin Sodium (Porcine) (Heparin Sodium (Porcine)) 5,000 units SQ Q8 [facility] Stop: 05/16/19 21:59 Last Admin: 04/17/19 05:51 Dose: 5,000 units Documented by: Promethazine HCl 12.5 mg/ (Sodium Chloride) 50.5 mls @ 202 mls/hr IV Q6H PRN PRN Reason: Nausea And Vomiting Stop: 05/16/19 01:06 Last Infusion: 04/17/19 06:06 Dose: Infused Documented by: Sodium Chloride (Nss) 500 mls @ 80 mls/hr IV .Q6H15M [facility] Stop: 04/17/19 17:59 Insulin Aspart (Novolog Flexpen) 0 units SC ACHS [facility] Stop: 05/16/19 01:06 Last Admin: 04/17/19 11:53 Dose: 2 units Documented by: Menthol (Nice) 1 richard BUCCAL Q2H PRN PRN Reason: Sore Throat Stop: 05/16/19 01:06 Metoprolol Tartrate (Lopressor) 12.5 mg PO BID [facility] Stop: 05/16/19 08:59 Last Admin: 04/17/19 09:00 Dose: 12.5 mg Documented by: Miscellaneous (Carbohydrates For Hypoglycemia) 15 - 30 gm PO UD PRN PRN Reason: Hypoglycemia Protocol Stop: 05/16/19 01:06 Nitroglycerin (Nitrostat) 0.4 mg SL UD PRN PRN Reason: Chest Pain Stop: 05/16/19 01:06 Tramadol HCl (Ultram) 25 mg PO Q4H PRN PRN Reason: Pain Stop: 05/16/19 01:06 Last Admin: 04/16/19 03:20 Dose: 25 mg Documented by:
--- NOTE | 2019-04-17 20:35 | Hospitalist Progress Note ---
Date of Service April 17, 2019 Assessment & Plan (1) Acute non-ST elevation myocardial infarction (NSTEMI): Presented to ED with chest pain. History of coronary artery disease with remote history of PCI, details not available. Initial troponin 0 0.079. Repeat troponin 0 0.127. Initial EKG demonstrated sinus rhythm at 70/minute with anterolateral T wave changes. Treated with aspirin, IV heparin, metoprolol, and atorvastatin. Cardiology consulted. Echocardiogram demonstrated global hypokinesis of left ventricle with estimated LVEF less than 20%. Cardiac catheterization was recommended and demonstrated multivessel disease with complete occlusion of RCA with [id number] collaterals, 95% stenosis OM1, 80 to 90% stenosis of distal LAD, complete occlusion of ostial first diagonal with collaterals. Medical management was recommended. Hold statin due to elevated LFT's. Ongoing management per Cardiology. (2) Cardiomyopathy: Chest x-ray showed cardiomegaly without pulmonary edema. Echocardiogram demonstrated LVEF less than 20%. Probable ischemic cardiomyopathy. Management per Cardiology. (3) Lactic acidosis: Serum lactate at time of admission 4.0, repeat 3.5. Does not appear to be septic. No fever, leukocytosis, or evidence of infection. Lactic acidosis may be secondary to cardiomyopathy with low cardiac output. Patient takes metformin for DM- best to discontinue in light of cardiomyopathy + elevated lactate. (4) MERRILL (acute kidney injury): Serum creatinine day of admission was 1.07. Creatinine today = 1.66. Acute kidney injury, possible ATN secondary to cardiac cath. Receiving gentle IV hydration. Follow. (5) Abnormal liver function tests: Laboratory Tests 04/17/19 07:17 Total Bilirubin 2.5 H D Direct Bilirubin 1.5 H AST 341 H ALT 246 H Alkaline Phosphatase 246 H Elevated LFT's could be secondary to passive congestion of liver from right-sided CHF, statin, fatty liver, biliary tract disease, other etiologies. Check US liver and acute viral serologies. Hold statin. Consult GI. (6) Hypertension: Titration of cardiovascular medications per Cardiology. (7) Dyslipidemia: LDL-C = 45. Hold atorvastatin in light of elevated LFT's. (8) Diabetes mellitus type 2 with complications: Diabetes mellitus type 2, complicated by ischemic heart disease. Usually managed with insulin 70/30, regular insulin, and metformin. Metformin should be discontinued because of low cardiac output + lactic acidosis. Random glucose at time of admission was 72. Hemoglobin A1c 8.5. Glycemic management per basal/bolus insulin protocol. Fasting blood sugar today = 108. (9) GERD (gastroesophageal reflux disease): Continue PPI. (10) Anemia: Hemoglobin at time of admission was 13.1. MCV 84. Iron 56, TIBC 341, transferrin 277, ferritin 73, folate 20, vitamin B12 1054. Patient reports rectal bleeding attributed to hemorrhoids. Ideally colonoscopy should be considered if not recently done, but cardiac risk may be prohibitive. (11) DVT prophylaxis: Initially received IV heparin for non-STEMI. Transitioned to SQ heparin. Ambulate. (12) Discharge planning issues: Anticipated return to [facility] under care of medical team there. Will need ongoing follow-up with Cardiology. Subjective Recheck for multiple problems. Patient seen in their room around 1814. No chest pain or shortness of breath. Episode of nausea and vomiting last night; no recurrence today. Review of Systems: Constitutional- no fever. Cardiac- as noted above. Pulmonary- no cough or SOB. GI- as noted above. - no urinary symptoms. Otherwise, as noted above. Physical Exam Constitutional: no acute distress Respiratory: no respiratory distress Auscultation: lungs clear to auscultation bilaterally Cardiovascular: Rate/Rhythm: regular rate and regular rhythm Heart Sounds: no gallop, no murmur and no cardiac rub Vessels: + JVD Extremities: + edema (trace); no calf tenderness Gastrointestinal (Abdomen): Inspection/Auscultation: normal bowel sounds Percussion/Palpation: + abdomen tender (? mild RUQ tenderness) and abdomen soft Skin: no rashes, warm and dry Psychiatric: Orientation: alert and oriented x 3 Results & Data Vital Signs (Past 12 Hours) Vital Signs Temp Pulse Pulse Resp BP BP Pulse Ox 04/17/19 19:11 36.6 C 82 20 142/87 H 99 04/17/19 15:16 36.4 C L 76 20 142/92 H 95 04/17/19 14:58 80 04/17/19 11:26 36.5 C 78 22 130/83 95 Laboratory Results Laboratory Results - last 24 hr 04/17/19 04/17/19 04/17/19 07:02 07:17 11:32 Sodium 134 L Potassium 4.9 D Chloride 103 Carbon Dioxide 21 Anion Gap 10.0 BUN 37 H D Creatinine 1.66 H D Est Cr Clr Drug Dosing 41.8 Est GFR ( Amer) 45.7 Est GFR (Non-Af Amer) 39.4 BUN/Creatinine Ratio 22.3 H Glucose 126 H POC Glucose 108 H 321 H* Calcium 9.0 Total Bilirubin 2.5 H D Direct Bilirubin 1.5 H AST 341 H ALT 246 H Alkaline Phosphatase 246 H Total Protein 7.4 Albumin 3.1 L 04/17/19 04/17/19 04/17/19 11:34 16:20 20:12 Sodium Potassium Chloride Carbon Dioxide Anion Gap BUN Creatinine Est Cr Clr Drug Dosing Est GFR ( Amer) Est GFR (Non-Af Amer) BUN/Creatinine Ratio Glucose POC Glucose 135 H 178 H 156 H Calcium Total Bilirubin Direct Bilirubin AST ALT Alkaline Phosphatase Total Protein Albumin
[2019-04-18] MEDS: HEPARIN SOD 5,000 UNIT/0.5 ML VIAL SQ SCH ×2 (05:32→13:12)
[2019-04-18] MEDS: TRAMADOL HCL 50 MG TABLET PO PRN (05:38)
--- NOTE | 2019-04-18 06:58 | Ultrasound Report ---
US abdomen limited HISTORY: Elevated liver function tests elevated LFT's. COMPARISON: None. FINDINGS: Pancreas: The pancreas demonstrates a normal echotexture. Liver: Mild fatty replacement. Trace perihepatic ascites. Gallbladder: No gallbladder wall thickening. No gallstones. CBD: 4 mm Right kidney: No hydronephrosis. IMPRESSION: 1. Fatty replacement of the liver. 2. Normal caliber bile ducts. 3. Trace perihepatic ascites. The above report was generated using voice recognition software. It may contain grammatical, syntax or spelling errors. Electronically signed by: Mio Sahu M.D. 04/18/2019 6:57 AM
--- NOTE | 2019-04-18 07:01 | Gastrointestinal Consultation ---
Date of Consultation April 18, 2019 Assessment & Plan (1) Abnormal liver function tests: His acutely, moderately elevated transaminases and mildly elevated alk phos most likely represent a mild hepatocellular injury from shock liver, having had a hypotension for several hrs at the time of his HI. He also has a chronically low cardiac LVEF which was <20 on arrival suggesting that he could have congestive hepatopathy, but would have expected chronically elevated LFT if that were the etiology. Will also r/o viral and autoimmune hepatitis. 1. Check LFTs today and trend every 1-2 days until decreasing back to baseline. 2. Check BENJAMIN, Hep A/B/C. Regarding his chronic nausea, and upper abdomen pain with hiccoughs and belching. He is able to eat w/o vomiting. Though esophagitis and gastritis are considered, would treat with acid suppression and avoid endoscopy during this admission for an acute HI. Present on Admission?: No Supervising Physician Co-Signing Physician Notes Attending attestation I have seen, examined this patient, and agree with the findings and above by our mid-level provider SHANNAN Aparicio, with the following additions -Presentation of elevated LFTs is most likely ischemic hepatopathy, obviously other etiologies such as viral, or medications need to be considered. -Has abdominal pain, with nausea and hiccups, recommend CT with IV and oral contrast -Follow daily LFTs -Call with questions -Will follow along History of Present Illness Reason for Consultation: Elevated LFTs Requesting Physician: Dr. Guzman Attending Physician: Romaine Guzman MD History of Present Illness Mr. Marvel Chavez is a 74 yr old male who is an inmate and carries a hx of CAD, past cardiac stenting in 1997, 1999, hypertension, hyperlipidemia, gout, DM 2 insulin requiring, GERD, past tobacco abuse. He was transported to [facility] on 04/15 for left-sided chest pain, SOB, diaphoresis and has been dx'ed with NSTEMI. For a few hours on 04/15, his systolic BPs were in the 80's90's. Echocardiogram with LV EF <20%. He underwent cardiac cath on 04/16 with severe multivessel coronary artery disease. Collaterals are present and he is being managed medically. GI is consulted for elevated LFTs: On arrival, all were normal. Then yesterday, LFTs were elevated in a mixed but mostly hepatocellular pattern: T bili on arrival 0.8-> 2.5 yesterday AST 45-=>341 ALT 43->246 Alk Phos 122->246. LFTs in January were normal. Abdominal US with fatty liver, normal bile ducts, trace perihepatic ascites. The pt tells me that he has upper abdomen pain, at a level 5 of 10, hiccoughs and belching present since "a few weeks ago, when I came to the ED." He reports having had nausea, vomiting and diarrhea at that visit and was told that he had viral gastroenteritis. I reviewed his records and see that the ED visit was in January and that CT with IV, no oral contrast as well as CBC, CMP and lipase did not show any significant abnormalities. He denies any yellow skin, fevers/chills. Allergies Allergy/AdvReac Type Severity Reaction Status Date / Time Sulfa (Sulfonamide Allergy Mild Unknown Verified 04/18/19 10:56 Antibiotics) Penicillins Allergy Unknown . Verified 04/16/19 00:15 Home Medications Home Medications Medication Instructions Recorded Confirmed Type alendronate 70 mg PO WK 02/02/19 04/16/19 History allopurinol 150 mg PO QAM 02/02/19 04/16/19 History aspirin 81 mg PO QAM 02/02/19 04/16/19 History atorvastatin 20 mg PO QAM 02/02/19 04/16/19 History calcium carbonate-vitamin D3 1 tab PO QAM 02/02/19 04/16/19 History [Calcium 600 + D(3)] duloxetine 60 mg PO QAM 02/02/19 04/16/19 History enalapril maleate 20 mg PO QAM 02/02/19 04/16/19 History metformin 1,000 mg PO BID 02/02/19 04/16/19 History metoprolol tartrate 100 mg PO BID 02/02/19 04/16/19 History nitroglycerin [Nitro-Dur] 1 patch TRANSDERMAL QAM 02/02/19 04/16/19 History nitroglycerin [Nitrostat] 0.4 mg SUBLINGUAL UD PRN 02/02/19 04/16/19 History acetaminophen 325 mg PO BID 04/15/19 04/16/19 History insulin NPH and regular human 20 unit SUBCUT QA 04/16/19 04/16/19 History [Humulin 70/30 U-100 Insulin] insulin NPH and regular human 28 unit SUBCUT QPM 04/16/19 04/16/19 History [Humulin 70/30 U-100 Insulin] insulin regular human [Humulin R 1 sliding scale dose SUBCUT BID 04/16/19 04/16/19 History Regular U-100 Insuln] omeprazole 40 mg PO BID 04/16/19 04/16/19 History phenylephrine HCl [Hemorrhoidal 1 supp SD TID 04/16/19 04/16/19 History Suppository] ranitidine HCl 150 mg PO BID 04/16/19 04/16/19 History triamterene-hydrochlorothiazid 1 tab PO DAILY 04/16/19 04/16/19 History Patient History Medical History Anemia (Chronic) GERD (gastroesophageal reflux disease) (Chronic) Diabetes mellitus type 2 with complications (Chronic) Dyslipidemia (Chronic) Hypertension (Chronic) Coronary artery disease (Chronic) Cardiomyopathy (Chronic) CAD (coronary artery disease) Colon polyps Diabetes Diverticulitis Hyperlipidemia Surgical History Status post appendectomy (Chronic) Status post splenectomy (Chronic) History of heart artery stent Social History Preferred Language: Azerbaijani Visual Impairment: No Limitations 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: Normal Bridal Gown Fitter Required: No Beliefs That Will Affect Care: None Current Living Situation: Other Current Living Situation Comment: correctional facility Other Information That Helps Us Care for You: No Feels Safe at Home: Yes Smoking Status: Former smoker Tobacco Type: cigarettes ; Do You Dip or Chew Tobacco: No ; Hx Alcohol Use: No Hx Substance Use: No Review of Systems Constitutional: + weakness; no fever and no chills Eyes: no problem reported no icterus Ear, Nose, Mouth, Throat: c/o a dry, irritated throat Respiratory: + cough; no pain on inspiration and no wheezing chronic cough with hiccoughs since ED visit Cardiovascular: + chest pain and + dyspnea (on arrival); no syncope and no edema Gastrointestinal: + abdominal pain (upper abdomen, moderate, x 3 months) and + nausea (reports level 10 nausea today, but was able to eat eggs, toast, rika milk without vomiting) Genitourinary: no dysuria and no hematuria Integumentary: no rash, no lesions and no change in skin color Neurologic: no gait abnormality, no unsteadiness and no falls Psychiatric: no problem reported Hematologic / Lymphatic: no easy bleeding, no easy bruising and no coagulopathy Allergy / Immunological: no wheezing and no rash Physical Exam Constitutional: WD/WN, vitals as above + obese Appears uncomfortable, but not in acute distress Eyes: PERRL, conjunctivae normal, anicteric sclerae ENMT: external ear and nose normal, oropharynx normal Neck: trachea midline, no thyromegaly Respiratory: normal respiratory effort, lungs clear to auscultation Cardiovascular: RRR, no murmur, no edema Gastrointestinal (Abdomen): Inspection/Auscultation: abdomen normal to inspection; abdomen not distended Percussion/Palpation: + abdomen tender (diffusely, over the entire upper abdomen) and abdomen soft; no guarding Skin: no rashes, warm and dry normal turgor Neurologic: PERRL, EOMI, accommodation nl, no face palsy, no dysarthria Psychiatric: A+Ox3, euthymic affect Speech a little mumbled. I had to ask him several time to speak up, to repeat, but he is able to speak clearly. Lymphatic: no cervical or axillary lymphadenopathy Results & Data Vital Signs (Past 12 Hours) Vital Signs Temp Pulse Resp BP Pulse Ox 04/18/19 03:54 37.1 C 78 20 133/97 97 04/17/19 23:59 36.6 C 80 20 127/97 97 04/17/19 19:11 36.6 C 82 20 142/87 H 99 Laboratory Results See HPI for LFTs. INR 1.1 on 04/15. Diagnostic Findings Liver US 04/17: 1. Fatty replacement of the liver. 2. Normal caliber bile ducts. 3. Trace perihepatic ascites.
[2019-04-18] MEDS: allopurinoL 300 MG TAB PO SCH (07:44)
[2019-04-18] MEDS: DULOXETINE HCL 60 MG CAP PO SCH (07:45)
[2019-04-18] MEDS: METOPROLOL TARTRATE 25 MG TAB PO SCH (07:45)
[2019-04-18] MEDS: ASPIRIN 81 MG ECTAB PO SCH (07:47)
[2019-04-18] MEDS: INSULIN ASPART 100 UNITS/ML 3 ML PEN SC SCH ×4 (09:10→21:29)
[2019-04-18 10:01] LABS: INR 1.9 (0.9-1.1); Prothrombin Time 18.8 Seconds (9.0-12.0)
[2019-04-18 10:18] LABS: Albumin Level 2.9 gm/dl (3.4-5.0); BUN Creatinine Ratio 24.9 (10-20); Bilirubin Direct 1.3 mg/dl (0-0.2); Calcium 8.7 mg/dl (8.5-10.1); Creatinine Clr Calc Pharmacy 51.4 ml/min; Est GFR (African American) 59.8; Est GFR (Non-African American) 51.6; Potassium 4.7 mmol/L (3.5-5.1)
[2019-04-18 10:20] LABS: Albumin Globulin Ratio 0.7 (0.9-2); Bilirubin,Total 2.3 mg/dl (0.2-1); Globulin 4.2 gm/dl (2.5-4.0); Total Protein 7.1 gm/dl (6.4-8.2)
--- NOTE | 2019-04-18 11:50 | Cardiology Progress Note ---
Date of Service April 18, 2019 Assessment & Plan (1) Cardiomyopathy: 74-year-old male patient presents with symptoms of exertional chest pressure and progressive shortness of breath of several months duration. His course thus far this hospital stay I think is more consistent with low card iac output syndrome rather than acute volume overload. He had initially been hypotensive with systolic readings in the 80 to 90 mmHg range during his first night in the hospital, and this improved with IV fluid administration, his antihypertensives had been transiently held, and his prior to hospital dose of metoprolol tartrate 100 mg twice daily was reduced to 12.5 mg BID. Cardiac catheterization revealed total chronic occlusion of the proximal right coronary artery with [id number] collaterals, which correlates with a nuclear stress test performed in September,, with a large severe fixed perfusion defect encompassing the inferior, inferolateral salazar. There was a high-grade distal LAD stenosis, but this is at the apical most portion of the LAD, I do not think it is amenable to revascularization. A 95% stenosis was noted at the proximal portion of a large OM1. On further review, this could perhaps be a target for percutaneous revascularization. And on review of his stress test, it does appear that there is a subtle degree of reversibility in this territory based on the images performed in September,. The LVEF is in the range of 20 to 25% which is a significant decline compared to an echocardiogram performed at the [facility] in 2017 at which time the ejection fraction was in the 50 to 55% range per my discussion of the physician taking care of him at the [facility]. At this time, we will proceed with another gentle course of IV fluids, normal saline, 80 mL/h, x500 L. Continue aspirin. Transition to Coreg. Statin is on hold due to elevated LFTs. Repeat troponin and EKG has been ordered. I discussed his case with Dr. Lozano of interventional cardiology, and we will tentatively plan for PCI of the OM1 on Sunday, allowing for 2 days to optimize his kidneys, since he did have MERRILL after the diagnostic cardiac catheterization on 04/16/2019. (2) MERRILL (acute kidney injury): Creatinine had increased to 1.66 milligrams per deciliter, 24 hours post diagnostic cardiac catheterization, after receiving gentle hydration, 500 mL's of IV fluid yesterday, it is down to 1.33 today. Metformin has been discontinued given elevated lactate level. We will plan for another gentle course of IV fluids today as noted above. (3) Abnormal liver function tests: She has bilirubin and AST, ALT, and alkaline phosphatase of trended up, AST is now 960 units/L in the ALT is 656 units/L. This may be due to shock liver picture in the setting of low cardiac output and previous relative hypotension. Will administer IV fluids, and observe. (4) Lactic acidosis: Elevated lactate level noted. Metformin discontinued. No symptoms of overt sepsis. Did have mild epigastric discomfort, but does not have ongoing chronic symptoms to suggest mesenteric ischemia. We will hydrate and follow. DVT prophylaxis: Continue subcutaneous heparin. Subjective Chief complaint: Follow-up chest pain, shortness of breath, dizziness Subjective: Patient states dizziness has improved. Blood pressure remains stable, most recent reading was actually high at 153/112, having been hypotensive when he initially presented on 04/15/2019, with multiple readings that evening and the systolic blood pressure range of 83 to 95 mmHg. Telemetry reveals sinus rhythm at 60 to 80 bpm at rest. Review of Systems Review of Systems: All systems reviewed & are unremarkable except as noted in HPI & below Physical Exam Physical Exam: Temp Pulse Resp BP Pulse Ox 36.5 C 88 24 153/112 H 95 04/18/19 07:25 04/18/19 07:25 04/18/19 07:25 04/18/19 07:25 04/18/19 07:25 Constitutional: WD/WN, vitals as above Respiratory: normal respiratory effort, lungs clear to auscultation Cardiovascular: RRR, no murmur, no edema Gastrointestinal (Abdomen): normal bowel sounds, soft, nontender, no hepatosplenomegaly Neurologic: PERRL, EOMI, accommodation nl, no face palsy, no dysarthria Results & Data Vital Signs (Past 12 Hours) Vital Signs Temp Pulse Resp BP Pulse Ox 04/18/19 07:25 36.5 C 88 24 153/112 H 95 04/18/19 03:54 37.1 C 78 20 133/97 97 04/17/19 23:59 36.6 C 80 20 127/97 97 Laboratory Results Cardiac Enzymes 04/18/19 04/18/19 Range/Units 07:18 09:18 AST Cancelled 960 H Coagulation 04/18/19 Range/Units 09:18 PT 18.8 H (9.0-12.0) Seconds Comprehensive Metabolic Panel 04/18/19 04/18/19 Range/Units 07:18 09:18 Sodium Cancelled 133 L Potassium Cancelled 4.7 Chloride Cancelled 101 Carbon Dioxide Cancelled 22 BUN Cancelled 33 H Creatinine Cancelled 1.33 D Glucose Cancelled 147 H Calcium Cancelled 8.7 Direct Bilirubin 1.3 H (0-0.2) mg/dl AST Cancelled 960 H ALT Cancelled 656 H Alkaline Phosphatase Cancelled 256 H Total Protein Cancelled 7.1 Albumin Cancelled 2.9 L Intake and Output 04/17/19 04/18/19 04/18/19 22:59 06:59 14:59 Intake Total 650 / 2150.5 790.5 / 2150.5 Output Total 375 / 1075 450 / 1075 Balance 275 / 1075.5 340.5 / 1075.5 Intake: IV 500 / 550.5 50.5 / 550.5 Phenergan 12.5 mg In Nss 50 ml 50.5 / 50.5 @ 202 mls/hr IV Q6H PRN Rx#: [id number] Nss 500 ml @ 80 mls/hr IV . 500 / 500 Q6H15M [facility] Rx#:[id number] Oral 150 / 1600 740 / 1600 Output: Urine 375 / 1075 450 / 1075 Other: Weight 88 kg Medications Administered Current Inpatient Medications Acetaminophen (Tylenol) 650 mg PO Q4H PRN PRN Reason: Pain or Fever Stop: 05/16/19 01:06 Allopurinol (Zyloprim) 150 mg PO QAM [facility] Stop: 05/16/19 08:59 Last Admin: 04/18/19 07:44 Dose: 150 mg Documented by: Aspirin (Ecotrin Ectab) 81 mg PO QAM [facility] Stop: 05/16/19 08:59 Last Admin: 04/18/19 07:47 Dose: 81 mg Documented by: Carvedilol (Coreg) 3.125 mg PO BID [facility] Stop: 05/18/19 10:59 Dextrose (Dextrose 50%) 25 - 50 ml IV UD PRN; Protocol PRN Reason: Hypoglycemia Protocol Stop: 05/16/19 01:06 Duloxetine HCl (Cymbalta) 60 [facility] [place] [place] Stop: 05/16/19 08:59 Last Admin: 04/18/19 07:45 Dose: 60 mg Documented by: Glucagon (Glucagen) 1 mg SQ UD PRN; Protocol PRN Reason: Hypoglycemia Protocol Stop: 05/16/19 01:06 Glucose (Glucose 40%) 15 - 30 gm PO UD PRN; Protocol PRN Reason: Hypoglycemia Protocol Stop: 05/16/19 01:06 Glucose (Dex4 Glucose) 4 - 8 tabs PO UD PRN; Protocol PRN Reason: Hypoglycemia Protocol Stop: 05/16/19 01:06 Heparin Sodium (Porcine) (Heparin Sodium (Porcine)) 5,000 units SQ Q8 NICHOLAS Stop: 05/16/19 21:59 Last Admin: 04/18/19 05:32 Dose: 5,000 units Documented by: Promethazine HCl 12.5 mg/ (Sodium Chloride) 50.5 mls @ 202 mls/hr IV Q6H PRN PRN Reason: Nausea And Vomiting Stop: 05/16/19 01:06 Last Infusion: 04/18/19 00:36 Dose: Infused Documented by: Insulin Aspart (Novolog Flexpen) 0 units SC ACHS NICHOLAS Stop: 05/16/19 01:06 Last Admin: 04/18/19 09:10 Dose: 5 units Documented by: Menthol (Nice) 1 richard BUCCAL Q2H PRN PRN Reason: Sore Throat Stop: 05/16/19 01:06 Miscellaneous (Carbohydrates For Hypoglycemia) 15 - 30 gm PO UD PRN PRN Reason: Hypoglycemia Protocol Stop: 05/16/19 01:06 Nitroglycerin (Nitrostat) 0.4 mg SL UD PRN PRN Reason: Chest Pain Stop: 05/16/19 01:06 Tramadol HCl (Ultram) 25 mg PO Q4H PRN PRN Reason: Pain Stop: 05/16/19 01:06 Last Admin: 04/18/19 05:38 Dose: 25 mg Documented by:
[2019-04-18] MEDS: carvediloL 3.125 MG TAB PO SCH ×3 (11:57→21:27)
--- NOTE | 2019-04-18 12:03 | XRay Report ---
XR chest 1V portable CLINICAL HISTORY: SOB dyspnea COMPARISON STUDY: 04/16/2019 FINDINGS: Stable moderate cardiomegaly. Lungs are considered clear. No focal infiltrates. Diaphragms are smooth IMPRESSION: . 1. Moderate stable cardiomegaly. 2. Otherwise negative study. The above report was generated using voice recognition software. It may contain grammatical, syntax or spelling errors. Electronically signed by: Mio Sahu M.D. 04/18/2019 12:02 PM
--- NOTE | 2019-04-18 12:04 | XRay Report ---
KUB HISTORY: Generalized abdominal pain COMPARISON: Abdomen and pelvis CT 02/02/2019. FINDINGS: The bowel gas pattern is unremarkable. There are no dilated loops of small bowel to suggest an obstruction. No renal calculi. No ureteral calculi. No definite pneumoperitoneum or pneumatosis. Punctate metallic densities overlying the left iliac wing. This remains unchanged. Suture material w ithin the left lower quadrant suggesting prior inguinal hernia repair. IMPRESSION: Unremarkable bowel gas pattern. No evidence for bowel obstruction. Electronically signed by: Valentin Zaman M.D. 04/18/2019 12:03 PM
[2019-04-18] MEDS ORDERED: SODIUM CHLORIDE 0.9% 500 ML IV SCH (12:15)
[2019-04-18 12:27] LABS: Basophils # (auto) 0.01 K/uL (0-0.2); Basophils % (auto) 0.2 %; Eosinophils # (auto) 0.02 K/uL (0-0.5); Eosinophils % (auto) 0.4 %; Hematocrit (blood only) 38.7 % (42-52); Hemoglobin 13.2 g/dL (14.0-18.0); Immature Granulocytes # (auto) 0.01 K/uL (0.00-0.02); Immature Granulocytes % (auto) 0.2 %; Lymphocytes # (auto) 1.01 K/uL (1.2-3.4); Lymphocytes % (auto) 19.8 %; Mean Corpuscular Hemoglobin 27.5 pg (25-34); Mean Corpuscular Hgb Conc 34.1 g/dL (32-36); Mean Corpuscular Volume 80.6 fL (80-100); Mean Platelet Volume 10.1 fL (7.4-10.4); Monocytes # (auto) 0.72 K/uL (0.11-0.59); Monocytes % (auto) 14.1 %; Neutrophils # (auto) 3.32 K/uL (1.4-6.5); Neutrophils % (auto) 65.3 %; Platelet Count 135 K/uL (130-400); RDW Coefficient of Variation 16.7 % (11.5-14.5); RDW Standard Deviation 49.3 fL (36.4-46.3); White Blood Count 5.09 K/uL (4.8-10.8)
[2019-04-18 14:45] LABS: Hepatitis B Surface Antigen Neg (Neg)
[2019-04-18 15:14] LABS: Hepatitis C IgG 13Yrs+Old_Rflx Neg (Neg)
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
[2019-04-18] MEDS: NYSTATIN SUSP 500,000 U/5 ML UDC PO SCH (21:27)
--- NOTE | 2019-04-18 22:39 | Hospitalist Progress Note ---
Date of Service April 18, 2019 Assessment & Plan (1) Acute non-ST elevation myocardial infarction (NSTEMI): Presented to ED with chest pain. History of coronary artery disease with remote history of PCI, details not available. Initial troponin 0 0.079. Repeat troponin 0 0.127. Initial EKG demonstrated sinus rhythm at 70/minute with anterolateral T wave changes. Treated with aspirin, IV heparin, metoprolol, and atorvastatin. Cardiology consulted. Echocardiogram demonstrated global hypokinesis of left ventricle with estimated LVEF less than 20%. Cardiac catheterization was recommended and demonstrated multivessel disease with complete occlusion of RCA with [id number] collaterals, 95% stenosis OM1, 80 to 90% stenosis of distal LAD, complete occlusion of ostial first diagonal with collaterals. Medical management was recommended. Hold statin due to elevated LFT's. Ongoing management per Cardiology. (2) Cardiomyopathy: Chest x-ray showed cardiomegaly without pulmonary edema. Echocardiogram demonstrated LVEF less than 20%. Probable ischemic cardiomyopathy. Management per Cardiology. (3) Lactic acidosis: Serum lactate at time of admission 4.0, repeat 3.5 on 04/16, repeat today = 4.1. Does not appear to be septic. No fever, leukocytosis, or evidence of infection. Procalcitonin normal. Lactic acidosis may be secondary to cardiomyopathy with low cardiac output. Patient takes metformin for DM- best to discontinue in light of cardiomyopathy + elevated lactate. (4) MERRILL (acute kidney injury): Serum creatinine day of admission was 1.07. Creatinine yesterday was 1.66. Acute kidney injury, possible ATN secondary to cardiac cath. Creatinine today = 1.33. Receiving gentle IV hydration. Follow. (5) Abnormal liver function tests: Laboratory Tests 04/17/19 04/18/19 07:17 09:18 Total Bilirubin 2.5 H D 2.3 H Direct Bilirubin 1.5 H 1.3 H AST 341 H 960 H ALT 246 H 656 H Alkaline Phosphatase 246 H 256 H Elevated LFT's could be secondary to passive congestion of liver from right- sided CHF, statin, fatty liver, biliary tract disease, other etiologies. US RUQ- fatty infiltration, no apparent acute process. Check acute viral serologies. Holding statin. GI consulted. May have shock liver secondary to hypotension. Continue to follow. (6) Hypertension: Titration of cardiovascular medications per Cardiology. (7) Dyslipidemia: LDL-C = 45. Hold atorvastatin in light of elevated LFT's. (8) Diabetes mellitus type 2 with complications: Diabetes mellitus type 2, complicated by ischemic heart disease. Usually managed with insulin 70/30, regular insulin, and metformin. Metformin should be discontinued because of low cardiac output + lactic acidosis. Random glucose at time of admission was 72. Hemoglobin A1c 8.5. Glycemic management per basal/bolus insulin protocol. Fasting blood sugar today = 122. (9) GERD (gastroesophageal reflux disease): Continue PPI. (10) Anemia: Hemoglobin at time of admission was 13.1. MCV 84. Iron 56, TIBC 341, transferrin 277, ferritin 73, folate 20, vitamin B12 1054. Patient reports rectal bleeding attributed to hemorrhoids. Ideally colonoscopy should be considered if not recently done, but cardiac risk may be prohibitive. (11) DVT prophylaxis: Initially received IV heparin for non-STEMI. Transitioned to SQ heparin- hold for elevated INR. Ambulate. (12) Discharge planning issues: Anticipated return to [facility] under care of medical team there. Will need ongoing follow-up with Cardiology. Subjective Recheck for multiple problems. Patient seen in their room around 1120. No chest pain. Appears to be a bit tachypneic, but denies SOB. Occasional cough. No fever. Intermittent nausea and emesis without blood / coffee grounds. Upper abdominal discomfort. No diarrhea, melena, hematochezia. Complains of pharyngitis. Review of Systems: As noted above. Physical Exam Constitutional: no acute distress ENMT: no erythema, ulcers, or thrush appreciated Respiratory: no respiratory distress Auscultation: lungs clear to auscultation bilaterally Cardiovascular: Rate/Rhythm: regular rate and regular rhythm Heart Sounds: no gallop, no murmur and no cardiac rub Vessels: + JVD Extremities: + edema (trace); no calf tenderness Gastrointestinal (Abdomen): normal bowel sounds, soft, nontender, no hepatosplenomegaly Inspection/Auscultation: normal bowel sounds Percussion/Palpation: + abdomen tender (? mild RUQ tenderness) and abdomen soft Skin: no rashes, warm and dry Psychiatric: Orientation: alert and oriented x 3 Results & Data Vital Signs (Past 12 Hours) Vital Signs Temp Pulse Resp BP Pulse Ox 04/18/19 19:20 36.5 C 82 20 138/97 97 04/18/19 15:10 36.5 C 91 H 20 149/102 H 92 04/18/19 12:21 36.6 C 84 24 155/111 H 100
[2019-04-19] MEDS: INSULIN ASPART 100 UNITS/ML 3 ML PEN SC SCH ×4 (08:04→20:16)
[2019-04-19] MEDS: carvediloL 3.125 MG TAB PO SCH ×2 (08:05→20:05)
[2019-04-19] MEDS: allopurinoL 300 MG TAB PO SCH (08:05)
[2019-04-19] MEDS: ASPIRIN 81 MG ECTAB PO SCH (08:06)
[2019-04-19] MEDS: DULOXETINE HCL 60 MG CAP PO SCH (08:06)
[2019-04-19] MEDS: NYSTATIN SUSP 500,000 U/5 ML UDC PO SCH ×4 (08:06→20:05)
[2019-04-19 08:28] LABS: Hematocrit (blood only) 36.8 % (42-52); Hemoglobin 12.4 g/dL (14.0-18.0); Mean Corpuscular Hemoglobin 27.3 pg (25-34); Mean Corpuscular Hgb Conc 33.7 g/dL (32-36); Mean Corpuscular Volume 81.1 fL (80-100); Platelet Count 113 K/uL (130-400); RDW Coefficient of Variation 16.6 % (11.5-14.5); RDW Standard Deviation 48.8 fL (36.4-46.3); Red Blood Count 4.54 M/uL (4.7-6.1); White Blood Count 4.35 K/uL (4.8-10.8)
[2019-04-19 08:38] LABS: INR 1.7 (0.9-1.1); Prothrombin Time 17.1 Seconds (9.0-12.0)
[2019-04-19 08:47] LABS: Albumin Globulin Ratio 0.7 (0.9-2); Albumin Level 2.7 gm/dl (3.4-5.0); BUN Creatinine Ratio 27.5 (10-20); Bilirubin Direct 0.7 mg/dl (0-0.2); Calcium 8.5 mg/dl (8.5-10.1); Creatinine Clr Calc Pharmacy 55.7 ml/min; Est GFR (African American) 74.4; Est GFR (Non-African American) 64.2; Globulin 3.8 gm/dl (2.5-4.0); Potassium 4.3 mmol/L (3.5-5.1); Total Protein 6.5 gm/dl (6.4-8.2)
[2019-04-19 08:59] LABS: Bilirubin,Total 1.2 mg/dl (0.2-1)
--- NOTE | 2019-04-19 09:35 | Gastroenterology Progress Note ---
Date of Service April 19, 2019 Assessment & Plan (1) Abnormal liver function tests: 74-year-old male with a history of congestive heart failure with significant elevation of his liver associated enzymes. Based on the historical information we suspect the patient has ischemic hepatitis. This is typically a self-limited condition and should continue to resolve without interventions. The patient does have a history of nausea which could be multifactorial or perhaps related to 1 of his medication such as metformin. It appears that this medication was discontinued. Recommendations Continue to monitor liver enzymes Agree with discontinuation of metformin Please call with any questions or concerns Subjective The patient was seen by Dr. Epstein due to elevated liver enzymes thought to be related to ischemic hepatitis given his history of congestive heart failure. The patient notes no acute abdominal discomfort this morning. Review of Systems Constitutional: + malaise; no sweats Respiratory: no change in sputum and no hemoptysis Cardiovascular: + chest pain with activity Gastrointestinal: + nausea; no vomiting Physical Exam Eyes: No icterus noted Neck: trachea midline, no thyromegaly Respiratory: normal respiratory effort; no respiratory distress and does not use accessory muscles Cardiovascular: Heart Sounds: + murmur Gastrointestinal (Abdomen): Inspection/Auscultation: + abdominal edema; abdomen not distended Results & Data Vital Signs (Past 12 Hours) Vital Signs Temp Pulse Resp BP Pulse Ox 04/19/19 07:27 36.7 C 83 22 146/101 H 95 04/19/19 03:30 36.9 C 80 19 119/77 95 04/18/19 23:44 37.2 C 85 19 132/84 99 Laboratory Results Laboratory Results - last 24 hr 04/18/19 04/18/19 04/18/19 09:18 09:18 09:18 WBC RBC Hgb Hct MCV MCH MCHC RDW Std Deviation RDW Coeff of Maria Guadalupe Plt Count MPV Immature Gran % (Auto) Neut % (Auto) Lymph % (Auto) [place] % (Auto) Eos % (Auto) Baso % (Auto) Immature Gran # (Auto) Neut # (Auto) Lymph # (Auto) [place] # (Auto) Eos # (Auto) Baso # (Auto) PT 18.8 H INR 1.9 H Sodium 133 L Potassium 4.7 Chloride 101 Carbon Dioxide 22 Anion Gap 10.0 BUN 33 H Creatinine 1.33 D Est Cr Clr Drug Dosing 51.4 Est GFR ( Amer) 59.8 Est GFR (Non-Af Amer) 51.6 BUN/Creatinine Ratio 24.9 H Glucose 147 H POC Glucose Lactate Calcium 8.7 Total Bilirubin 2.3 H Direct Bilirubin 1.3 H AST 960 H ALT 656 H Alkaline Phosphatase 256 H Troponin I Total Protein 7.1 Albumin 2.9 L Globulin 4.2 H Albumin/Globulin Ratio 0.7 L Lipase Procalcitonin BENJAMIN Screen CMV IgG Ab/TORCH Hepatitis A IgM Ab Hep Bs Antigen Neg Hep B Core IgM Ab Hepatitis C Antibody Neg HSV I IgG Ab HSV II IgG 04/18/19 04/18/19 04/18/19 09:18 09:18 10:53 WBC RBC Hgb Hct MCV MCH MCHC RDW Std Deviation RDW Coeff of Maria Gu[place]upe Plt Count MPV Immature Gran % (Auto) Neut % (Auto) Lymph % (Auto) [place] % (Auto) Eos % (Auto) Baso % (Auto) Immature Gran # (Auto) Neut # (Auto) Lymph # (Auto) [place] # (Auto) Eos # (Auto) Baso # (Auto) PT INR Sodium Potassium Chloride Carbon Dioxide Anion Gap BUN Creatinine Est Cr Clr Drug Dosing Est GFR ( Amer) Est GFR (Non-Af Amer) BUN/Creatinine Ratio Glucose POC Glucose Lactate 4.1 H* Calcium Total Bilirubin Direct Bilirubin AST ALT Alkaline Phosphatase Troponin I Total Protein Albumin Globulin Albumin/Globulin Ratio Lipase 47 L Procalcitonin [place] Screen Pending CMV IgG Ab/TORCH Hepatitis A IgM Ab Pending Hep Bs Antigen Hep B Core IgM Ab Pending Hepatitis C Antibody HSV I IgG Ab HSV II IgG 04/18/19 04/18/19 04/18/19 11:15 12:12 12:12 WBC 5.09 RBC 4.80 Hgb 13.2 L Hct 38.7 L MCV 80.6 MCH 27.5 MCHC 34.1 RDW Std Deviation 49.3 H RDW Coeff of Maria Guadalupe 16.7 H Plt Count 135 MPV 10.1 Immature Gran % (Auto) 0.2 Neut % (Auto) 65.3 Lymph % (Auto) 19.8 [place] % (Auto) 14.1 Eos % (Auto) 0.4 Baso % (Auto) 0.2 Immature Gran # (Auto) 0.01 Neut # (Auto) 3.32 Lymph # (Auto) 1.01 L [place] # (Auto) 0.72 H Eos # (Auto) 0.02 Baso # (Auto) 0.01 PT INR Sodium Potassium Chloride Carbon Dioxide Anion Gap BUN Creatinine Est Cr Clr Drug Dosing Est GFR ( Amer) Est GFR (Non-Af Amer) BUN/Creatinine Ratio Glucose POC Glucose 162 H Lactate Calcium Total Bilirubin Direct Bilirubin AST ALT Alkaline Phosphatase Troponin I Total Protein Albumin Globulin Albumin/Globulin Ratio Lipase Procalcitonin 0.38 [place]IN Screen CMV IgG Ab/TORCH Hepatitis A IgM Ab Hep Bs Antigen Hep B Core IgM Ab Hepatitis C Antibody HSV I IgG Ab HSV II IgG 04/18/19 04/18/19 04/18/19 12:12 16:08 20:23 WBC RBC Hgb Hct MCV MCH MCHC RDW Std Deviation RDW Coeff of Maria Guadalupe Plt Count MPV Immature Gran % (Auto) Neut % (Auto) Lymph % (Auto) [place] % (Auto) Eos % (Auto) Baso % (Auto) Immature Gran # (Auto) Neut # (Auto) Lymph # (Auto) [place] # (Auto) Eos # (Auto) Baso # (Auto) PT INR Sodium Potassium Chloride Carbon Dioxide Anion Gap BUN Creatinine Est Cr Clr Drug Dosing Est GFR ( Amer) Est GFR (Non-Af Amer) BUN/Creatinine Ratio Glucose POC Glucose 182 H 145 H Lactate Calcium Total Bilirubin Direct Bilirubin AST ALT Alkaline Phosphatase Troponin I 0.569 H* Total Protein Albumin Globulin Albumin/Globulin Ratio Lipase Procalcitonin [place] Screen CMV IgG Ab/TORCH Hepatitis A IgM Ab Hep Bs Antigen Hep B Core IgM Ab Hepatitis C Antibody HSV I IgG Ab HSV II IgG 04/19/19 04/19/19 04/19/19 07:28 08:15 08:15 WBC 4.35 L RBC 4.54 L Hgb 12.4 L Hct 36.8 L MCV 81.1 MCH 27.3 MCHC 33.7 RDW Std Deviation 48.8 H RDW Coeff of Maria Guadalupe 16.6 H Plt Count 113 L MPV 10.0 Immature Gran % (Auto) Neut % (Auto) Lymph % (Auto) [place] % (Auto) Eos % (Auto) Baso % (Auto) Immature Gran # (Auto) Neut # (Auto) Lymph # (Auto) [place] # (Auto) Eos # (Auto) Baso # (Auto) PT INR Sodium 135 L Potassium 4.3 Chloride 103 Carbon Dioxide 26 Anion Gap 6.0 BUN 31 H Creatinine 1.11 Est Cr Clr Drug Dosing 55.7 Est GFR ( Amer) 74.4 Est GFR (Non-Af Amer) 64.2 BUN/Creatinine Ratio 27.5 H Glucose 173 H POC Glucose 190 H Lactate Calcium 8.5 Total Bilirubin 1.2 H Direct Bilirubin 0.7 H AST 502 H ALT 551 H Alkaline Phosphatase 246 H Troponin I Total Protein 6.5 Albumin 2.7 L Globulin 3.8 Albumin/Globulin Ratio 0.7 L Lipase Procalcitonin [place] Screen CMV IgG Ab/TORCH Hepatitis A IgM Ab Hep Bs Antigen Hep B Core IgM Ab Hepatitis C Antibody HSV I IgG Ab HSV II IgG 04/19/19 04/19/19 04/19/19 08:15 08:15 08:15 WBC RBC Hgb Hct MCV MCH MCHC RDW Std Deviation RDW Coeff of Maria Guadalupe Plt Count MPV Immature Gran % (Auto) Neut % (Auto) Lymph % (Auto) [place] % (Auto) Eos % (Auto) Baso % (Auto) Immature Gran # (Auto) Neut # (Auto) Lymph # (Auto) [place] # (Auto) Eos # (Auto) Baso # (Auto) PT 17.1 H INR 1.7 H Sodium Potassium Chloride Carbon Dioxide Anion Gap BUN Creatinine Est Cr Clr Drug Dosing Est GFR ( Amer) Est GFR (Non-Af Amer) BUN/Creatinine Ratio Glucose POC Glucose Lactate 2.1 H* Calcium Total Bilirubin Direct Bilirubin AST ALT Alkaline Phosphatase Troponin I Total Protein Albumin Globulin Albumin/Globulin Ratio Lipase Procalcitonin [place] Screen CMV IgG Ab/TORCH Pending Hepatitis A IgM Ab Hep Bs Antigen Hep B Core IgM Ab Hepatitis C Antibody HSV I IgG Ab Pending HSV II IgG Pending
--- NOTE | 2019-04-19 11:45 | Cardiology Progress Note ---
Date of Service April 19, 2019 Assessment & Plan (1) Chronic systolic (congestive) heart failure: (2) Ischemic cardiomyopathy: (3) Acute non-ST elevation myocardial infarction (NSTEMI): (4) MERRILL (acute kidney injury): (5) Abnormal liver function tests: (6) Lactic acidosis: Hemodynamics improved with transition of high-dose metoprolol to low-dose carvedilol. I will continue current dose, 3.125 mg twice daily for the next 24 hours with consideration for titration to 6.5 mg twice daily tomorrow. Creatinine, and LFTs trending downward. Monitor daily weight, fluid balance, GFR, electrolytes. Plan for percutaneous intervention to obtuse marginal branch vessel on 04/21/2019. N.p.o. except medications after midnight on 04/20/2019. Subjective Patient seen and examined at the bedside. Chronic dyspnea unchanged. Denies orthopnea, PND, or edema. Treated with gentle IV fluid yesterday. Transition from high-dose metoprolol to low-dose carvedilol. Blood pressure remained stable. Transient hypotension has resolved. No significant bradycardia or dysrhythmias on telemetry. Renal function improving. Patient offers no other concerns/complaints at this time. Review of Systems Review of Systems: All systems reviewed & are unremarkable except as noted in HPI & below Physical Exam Physical Exam: General: NAD, AAO x3, well nourished. HEENT: Normocephalic. Atraumatic. Conjunctiva pink, no scleral icterus. Neck: No carotid bruits, the carotid upstrokes are brisk. No JVD. No HJR Heart: Regular normal S-1 and S-2 no S-3 or S-4 gallop. No murmurs or rub appreciated. PMI is not displaced. No RV heave. Lungs: + Crackles at the right base, no rales, rhonchi, or wheeze. Abdomen: Normal bowel sounds. Soft. Nontender. No masses or organomegaly. No abdominal bruits. Extremities: No clubbing, cyanosis, or edema. Pulses: radial=2/4, Dorsalis pedis =2/4. Neuro: Cranial nerves grossly intact. No focal motor deficit. Results & Data Vital Signs (Past 12 Hours) Vital Signs Temp Pulse Resp BP Pulse Ox 04/19/19 11:26 36.9 C 74 22 135/89 95 04/19/19 07:27 36.7 C 83 22 146/101 H 95 04/19/19 03:30 36.9 C 80 19 119/77 95 04/18/19 23:44 37.2 C 85 19 132/84 99
--- NOTE | 2019-04-19 19:45 | Hospitalist Progress Note ---
Date of Service April 19, 2019 Assessment & Plan (1) Acute non-ST elevation myocardial infarction (NSTEMI): Presented to ED with chest pain. History of coronary artery disease with remote history of PCI, details not available. Initial troponin 0 0.079. Repeat troponin 0 0.127. Initial EKG demonstrated sinus rhythm at 70/minute with anterolateral T wave changes. Treated with aspirin, IV heparin, metoprolol, and atorvastatin. Cardiology consulted. Echocardiogram demonstrated global hypokinesis of left ventricle with estimated LVEF less than 20%. Cardiac catheterization was recommended and demonstrated multivessel disease with complete occlusion of RCA with [id number] collaterals, 95% stenosis OM1, 80 to 90% stenosis of distal LAD, complete occlusion of ostial first diagonal with collaterals. Medical management was recommended. Hold statin due to elevated LFT's. Ongoing management per Cardiology. (2) Cardiomyopathy: Chest x-ray showed cardiomegaly without pulmonary edema. Echocardiogram demonstrated LVEF less than 20%. Probable ischemic cardiomyopathy. Management per Cardiology. (3) Lactic acidosis: Serum lactate at time of admission 4.0, repeat 3.5 on 04/16, repeat today = 2.1. Does not appear to be septic. No fever, leukocytosis, or evidence of infection. Procalcitonin normal. Lactic acidosis may be secondary to cardiomyopathy with low cardiac output. Patient takes metformin for DM- best to discontinue in light of cardiomyopathy + elevated lactate. (4) MERRILL (acute kidney injury): Serum creatinine day of admission was 1.07. Creatinine yesterday was 1.66. Acute kidney injury, possible ATN secondary to cardiac cath. Received gentle IV hydration. Creatinine today = 1.11. Follow. (5) Abnormal liver function tests: Laboratory Tests 04/15/19 04/17/19 04/18/19 21:48 07:17 09:18 Total Bilirubin 0.8 2.5 H D 2.3 H AST 45 H 341 H 960 H ALT 43 246 H 656 H Alkaline Phosphatase 179 H 246 H 256 H 04/19/19 08:15 Total Bilirubin 1.2 H AST 502 H ALT 551 H Alkaline Phosphatase 246 H Elevated LFT's could be secondary to passive congestion of liver from right- sided CHF, statin, fatty liver, biliary tract disease, other etiologies. US RUQ- fatty infiltration, no apparent acute process. Check acute viral serologies. Holding statin. GI consulted. May have shock liver secondary to hypotension. Symptoms / labs improved. Continue to follow. (6) Hypertension: Titration of cardiovascular medications per Cardiology. (7) Dyslipidemia: LDL-C = 45. Hold atorvastatin in light of elevated LFT's. (8) Diabetes mellitus type 2 with complications: Diabetes mellitus type 2, complicated by ischemic heart disease. Usually managed with insulin 70/30, regular insulin, and metformin. Metformin should be discontinued because of low cardiac output + lactic acidosis. Random glucose at time of admission was 72. Hemoglobin A1c 8.5. Glycemic management per basal/bolus insulin protocol. Fasting blood sugar today = 190. (9) GERD (gastroesophageal reflux disease): Continue PPI. (10) Anemia: Hemoglobin at time of admission was 13.1. MCV 84. Iron 56, TIBC 341, transferrin 277, ferritin 73, folate 20, vitamin B12 1054. Patient reports rectal bleeding attributed to hemorrhoids. Ideally colonoscopy should be considered if not recently done, but cardiac risk may be prohibitive. (11) DVT prophylaxis: Initially received IV heparin for non-STEMI. Transitioned to SQ heparin- hold for elevated INR. Ambulate. (12) Discharge planning issues: Anticipated return to [facility] under care of medical team there. Will need ongoing follow-up with Cardiology. Subjective Recheck for multiple problems. Patient seen in their room around 1420. No chest pain. Less SOB. No cough. No fever. Nausea improved. No further emesis. Upper abdominal discomfort improved. No diarrhea, melena, hematochezia. Pharyngitis improved. Review of Systems: As noted above. Physical Exam Constitutional: no acute distress Respiratory: no respiratory distress Auscultation: lungs clear to auscultation bilaterally Cardiovascular: Rate/Rhythm: regular rate and regular rhythm Heart Sounds: no gallop, no murmur and no cardiac rub Vessels: + JVD Extremities: + edema (trace); no calf tenderness Gastrointestinal (Abdomen): Inspection/Auscultation: normal bowel sounds Percussion/Palpation: abdomen soft; abdomen nontender Skin: no rashes, warm and dry Psychiatric: Orientation: alert and oriented x 3 Results & Data Vital Signs (Past 12 Hours) Vital Signs Temp Pulse Pulse Pulse Resp BP BP 04/19/19 19:18 36.4 C L 81 14 137/92 04/19/19 16:00 86 04/19/19 15:26 36.9 C 85 24 137/91 04/19/19 11:26 36.9 C 74 22 135/89 Pulse Ox 04/19/19 19:18 97 04/19/19 16:00 04/19/19 15:26 98 04/19/19 11:26 95
[2019-04-20 07:11] LABS: Hematocrit (blood only) 37.7 % (42-52); Hemoglobin 12.1 g/dL (14.0-18.0); Mean Corpuscular Hemoglobin 26.4 pg (25-34); Mean Corpuscular Hgb Conc 32.1 g/dL (32-36); Mean Corpuscular Volume 82.1 fL (80-100); Mean Platelet Volume 10.9 fL (7.4-10.4); Platelet Count 125 K/uL (130-400); RDW Coefficient of Variation 17.3 % (11.5-14.5); RDW Standard Deviation 51.6 fL (36.4-46.3); Red Blood Count 4.59 M/uL (4.7-6.1); White Blood Count 4.28 K/uL (4.8-10.8)
[2019-04-20 07:19] LABS: INR 1.4 (0.9-1.1); Prothrombin Time 13.8 Seconds (9.0-12.0)
[2019-04-20 07:43] LABS: Alanine Aminotransferase 451 U/L (12-78); Albumin Globulin Ratio 0.7 (0.9-2); Albumin Level 2.6 gm/dl (3.4-5.0); Alkaline Phosphatase 228 U/L (45-117); Aspartate Aminotransferase 325 U/L (15-37); BUN Creatinine Ratio 21.3 (10-20); Blood Urea Nitrogen 21 mg/dl (7-18); Carbon Dioxide 27 mmol/L (21-32); Chloride 106 mmol/L (98-107); Creatinine Clr Calc Pharmacy 72.2 ml/min; Est GFR (African American) 87.5; Est GFR (Non-African American) 75.5; Globulin 3.9 gm/dl (2.5-4.0); Glucose 188 mg/dl (70-99); Potassium 4.1 mmol/L (3.5-5.1); Sodium 140 mmol/L (136-145); Total Protein 6.5 gm/dl (6.4-8.2)
[2019-04-20] MEDS: INSULIN ASPART 100 UNITS/ML 3 ML PEN SC SCH ×4 (07:50→21:10)
[2019-04-20] MEDS: ASPIRIN 81 MG ECTAB PO SCH (07:51)
[2019-04-20] MEDS: carvediloL 3.125 MG TAB PO SCH (07:51)
[2019-04-20] MEDS: allopurinoL 300 MG TAB PO SCH (07:51)
[2019-04-20] MEDS: DULOXETINE HCL 60 MG CAP PO SCH (07:51)
[2019-04-20] MEDS: NYSTATIN SUSP 500,000 U/5 ML UDC PO SCH ×4 (07:51→21:10)
[2019-04-20] MEDS ORDERED: carvediloL 3.125 MG TAB PO ONE (10:09)
--- NOTE | 2019-04-20 10:14 | Cardiology Progress Note ---
Date of Service April 20, 2019 Assessment & Plan (1) Chronic systolic (congestive) heart failure: (2) Ischemic cardiomyopathy: (3) Acute non-ST elevation myocardial infarction (NSTEMI): (4) MERRILL (acute kidney injury): (5) Abnormal liver function tests: (6) Lactic acidosis: Increase carvedilol to 6.25 mg twice daily. He will receive an additional 3.125mg x 1 now. Creatinine and LFTs trending downward. He will proceed with percutaneous intervention of the obtuse marginal branch vessel in a.m. with Dr. Lozano. N.p.o. except medications after midnight. Tentative plan for discharge 24 hours after intervention. Subjective Patient seen and examined the bedside. States shortness of breath has improved. Blood pressure trending upward. Denies chest pain or unusual shortness of breath. No orthopnea, PND, or lower extremity edema. Offers no other concerns/complaints at this time. Review of Systems Review of Systems: All systems reviewed & are unremarkable except as noted in HPI & below Physical Exam Physical Exam: General: NAD, AAO x3, well nourished. HEENT: Normocephalic. Atraumatic. Conjunctiva pink, no scleral icterus. Neck: No carotid bruits, the carotid upstrokes are brisk. No JVD. No HJR Heart: Regular normal S-1 and S-2 no S-3 or S-4 gallop. No murmurs or rub appreciated. PMI is not displaced. No RV heave. Lungs: + Crackles at the right base, no rales, rhonchi, or wheeze. Abdomen: Normal bowel sounds. Soft. Nontender. No masses or organomegaly. No abdominal bruits. Extremities: No clubbing, cyanosis, or edema. Pulses: radial=2/4, Dorsalis pedis =2/4. Neuro: Cranial nerves grossly intact. No focal motor deficit. Results & Data Vital Signs (Past 12 Hours) Vital Signs Temp Pulse Resp BP Pulse Ox 04/20/19 07:16 36.8 C 90 18 147/94 H 98 04/20/19 02:21 36.9 C 87 19 153/102 H 90
--- NOTE | 2019-04-20 17:18 | Hospitalist Progress Note ---
Date of Service April 20, 2019 Assessment & Plan (1) Acute non-ST elevation myocardial infarction (NSTEMI): Presented to ED with chest pain. History of coronary artery disease with remote history of PCI, details not available. Initial troponin 0 0.079. Repeat troponin 0 0.127. Initial EKG demonstrated sinus rhythm at 70/minute with anterolateral T wave changes. Treated with aspirin, IV heparin, metoprolol, and atorvastatin. Cardiology consulted. Echocardiogram demonstrated global hypokinesis of left ventricle with estimated LVEF less than 20%. Cardiac catheterization was recommended and demonstrated multivessel disease with complete occlusion of RCA with [id number] collaterals, 95% stenosis OM1, 80 to 90% stenosis of distal LAD, complete occlusion of ostial first diagonal with collaterals. Medical management was recommended. Hold statin due to elevated LFT's. Ongoing management per Cardiology. Possible PCI OM1 tomorrow. (2) Cardiomyopathy: Chest x-ray showed cardiomegaly without pulmonary edema. Echocardiogram demonstrated LVEF less than 20%. Probable ischemic cardiomyopathy. Management per Cardiology. (3) Lactic acidosis: Serum lactate at time of admission 4.0, repeat today = 1.8. Does not appear to be septic. No fever, leukocytosis, or evidence of infection. Procalcitonin normal. Lactic acidosis may have been secondary to cardiomyopathy with low cardiac output and/or shock liver. Patient takes metformin for DM- best to discontinue in light of cardiomyopathy + elevated lactate. (4) MERRILL (acute kidney injury): Serum creatinine day of admission was 1.07. Creatinine yesterday was 1.66. Acute kidney injury, possible ATN secondary to cardiac cath. Received gentle IV hydration. Creatinine today = 0.97. Follow. (5) Abnormal liver function tests: Elevated LFT's could be secondary to passive congestion of liver from right- sided CHF, statin, fatty liver, biliary tract disease, other etiologies. US RUQ- fatty infiltration, no apparent acute process. Checking acute viral serologies. Holding statin. GI consulted. May have shock liver secondary to hypotension. Symptoms / labs improved. Continue to follow. (6) Hypertension: Titration of cardiovascular medications per Cardiology. (7) Dyslipidemia: LDL-C = 45. Hold atorvastatin in light of elevated LFT's. (8) Diabetes mellitus type 2 with complications: Diabetes mellitus type 2, complicated by ischemic heart disease. Usually managed with insulin 70/30, regular insulin, and metformin. Metformin should be discontinued because of low cardiac output + lactic acidosis. Random glucose at time of admission was 72. Hemoglobin A1c 8.5. Glycemic management per basal/bolus insulin protocol. Fasting blood sugar today = 175. (9) GERD (gastroesophageal reflux disease): Continue PPI. (10) Anemia: Hemoglobin at time of admission was 13.1. MCV 84. Iron 56, TIBC 341, transferrin 277, ferritin 73, folate 20, vitamin B12 1054. Patient reports rectal bleeding attributed to hemorrhoids. Ideally colonoscopy should be considered if not recently done, but cardiac risk may be prohibitive. (11) DVT prophylaxis: Initially received IV heparin for non-STEMI. Transitioned to SQ heparin- holding for elevated INR. SCD's. Ambulate. (12) Discharge planning issues: Anticipated return to [facility] under care of medical team there. Will need ongoing follow-up with Cardiology. Subjective Recheck for multiple problems. Patient seen in their room around 1100. Feeling better. No fever. No chest pain. No cough or SOB. No further nausea, vomiting, abdominal pain. No diarrhea, melena, hematochezia. Voiding without difficulty. Pharyngitis improved. Review of Systems: As noted above. Physical Exam Constitutional: no acute distress Respiratory: no respiratory distress Auscultation: lungs clear to auscultation bilaterally Cardiovascular: Rate/Rhythm: regular rate and regular rhythm Heart Sounds: no gallop, no murmur and no cardiac rub Vessels: + JVD Extremities: + edema (trace); no calf tenderness Gastrointestinal (Abdomen): normal bowel sounds, soft, nontender, no hepatosplenomegaly Inspection/Auscultation: normal bowel sounds Percussion/Palpation: abdomen soft; abdomen nontender Skin: no rashes, warm and dry Psychiatric: Orientation: alert and oriented x 3 Results & Data Vital Signs (Past 12 Hours) Vital Signs Temp Pulse Resp BP Pulse Ox 04/20/19 15:53 36.5 C 81 16 158/89 H 95 04/20/19 11:29 36.3 C L 79 16 132/84 100 04/20/19 07:16 36.8 C 90 18 147/94 H 98 Laboratory Results Laboratory Results - last 24 hr 04/19/19 04/20/19 04/20/19 20:11 06:58 06:58 WBC 4.28 L RBC 4.59 L Hgb 12.1 L Hct 37.7 L MCV 82.1 MCH 26.4 MCHC 32.1 RDW Std Deviation 51.6 H RDW Coeff of Maria Guadalupe 17.3 H Plt Count 125 L MPV 10.9 H PT 13.8 H INR 1.4 H Sodium Potassium Chloride Carbon Dioxide Anion Gap BUN Creatinine Est Cr Clr Drug Dosing Est GFR ( Amer) Est GFR (Non-Af Amer) BUN/Creatinine Ratio Glucose POC Glucose 206 H Lactate Calcium Total Bilirubin Direct Bilirubin AST ALT Alkaline Phosphatase Total Protein Albumin Globulin Albumin/Globulin Ratio Specimen Hemolysis 04/20/19 04/20/19 04/20/19 06:58 06:58 07:16 WBC RBC Hgb Hct MCV MCH MCHC RDW Std Deviation RDW Coeff of Maria Guadalupe Plt Count MPV PT INR Sodium 140 Potassium 4.1 Chloride 106 Carbon Dioxide 27 Anion Gap 7.0 BUN 21 H Creatinine 0.97 Est Cr Clr Drug Dosing 72.2 Est GFR ( Amer) 87.5 Est GFR (Non-Af Amer) 75.5 BUN/Creatinine Ratio 21.3 H Glucose 188 H POC Glucose 175 H Lactate 1.8 Calcium 9.0 Total Bilirubin 1.0 Direct Bilirubin TNP AST 325 H ALT 451 H Alkaline Phosphatase 228 H Total Protein 6.5 Albumin 2.6 L Globulin 3.9 Albumin/Globulin Ratio 0.7 L Specimen Hemolysis 04/20/19 04/20/19 11:33 16:36 WBC RBC Hgb Hct MCV MCH MCHC RDW Std Deviation RDW Coeff of Maria Guadalupe Plt Count MPV PT INR Sodium Potassium Chloride Carbon Dioxide Anion Gap BUN Creatinine Est Cr Clr Drug Dosing Est GFR ( Amer) Est GFR (Non-Af Amer) BUN/Creatinine Ratio Glucose POC Glucose 243 H 125 H Lactate Calcium Total Bilirubin Direct Bilirubin AST ALT Alkaline Phosphatase Total Protein Albumin Globulin Albumin/Globulin Ratio Specimen Hemolysis
[2019-04-20] MEDS: INSULIN GLARGINE SOLOSTAR 100 UNITS/ML 3 ML PEN SC SCH (21:08)
[2019-04-20] MEDS: carvediloL 6.25 MG TAB PO SCH (21:10)
[2019-04-21 07:43] LABS: Hematocrit (blood only) 37.1 % (42-52); Mean Corpuscular Hemoglobin 26.7 pg (25-34); Mean Corpuscular Hgb Conc 32.3 g/dL (32-36); Mean Corpuscular Volume 82.4 fL (80-100); Mean Platelet Volume 10.1 fL (7.4-10.4); Platelet Count 115 K/uL (130-400); RDW Coefficient of Variation 17.2 % (11.5-14.5); RDW Standard Deviation 51.8 fL (36.4-46.3); White Blood Count 3.89 K/uL (4.8-10.8)
[2019-04-21 08:19] LABS: Albumin Level 2.5 gm/dl (3.4-5.0); BUN Creatinine Ratio 22.1 (10-20); Bilirubin Direct 0.5 mg/dl (0-0.2); Calcium 8.5 mg/dl (8.5-10.1); Creatinine Clr Calc Pharmacy 74.5 ml/min; Est GFR (African American) 95.8; Est GFR (Non-African American) 82.7
[2019-04-21 08:22] LABS: Albumin Globulin Ratio 0.6 (0.9-2); Bilirubin,Total 1.2 mg/dl (0.2-1); Total Protein 6.5 gm/dl (6.4-8.2)
[2019-04-21] MEDS: INSULIN ASPART 100 UNITS/ML 3 ML PEN SC SCH ×4 (09:04→20:37)
[2019-04-21] MEDS: allopurinoL 300 MG TAB PO SCH (09:05)
[2019-04-21] MEDS: DULOXETINE HCL 60 MG CAP PO SCH (09:05)
[2019-04-21] MEDS: ASPIRIN 81 MG ECTAB PO SCH (09:06)
[2019-04-21] MEDS: NYSTATIN SUSP 500,000 U/5 ML UDC PO SCH ×4 (09:06→20:35)
[2019-04-21] MEDS: INSULIN GLARGINE SOLOSTAR 100 UNITS/ML 3 ML PEN SC SCH ×2 (09:06→20:36)
[2019-04-21] MEDS: carvediloL 6.25 MG TAB PO SCH (09:06)
--- NOTE | 2019-04-21 10:57 | Magnetic Resonance Report ---
MR MRCP CLINICAL HISTORY: elevated LFTs, r/o choledocholithiasis abdominal pain COMPARISON STUDY: CT scan dated 04/18/2019 FINDINGS: A breath-hold MRCP was performed. MIP images were acquired. There is mild body wall edema. There is mild perirenal fluid, and trace ascites. No gallstones are visualized. The common bile duct is of normal caliber. No pancreatic ductal abnormalities are visualized. There are small bilateral pleural effusions. No ductal filling defects are visualized. IMPRESSION: 1. Radiographic evidence of fluid overload with body wall edema, trace ascites, and bilateral pleural effusions 2. Normal gallbladder 3. Normal common bile duct and pancreatic duct. No ductal dilatation. Electronically signed by: Jesus Llamas M.D. 04/21/2019 10:56 AM
--- NOTE | 2019-04-21 11:12 | Cardiology Progress Note ---
Date of Service April 21, 2019 Assessment & Plan (1) Chronic systolic (congestive) heart failure: (2) Ischemic cardiomyopathy: (3) Acute non-ST elevation myocardial infarction (NSTEMI): (4) MERRILL (acute kidney injury): (5) Abnormal liver function tests: (6) Lactic acidosis: Recommend Lasix 40 mg IV x1 now with evidence of volume overload per MRI and continued crackles on exam. Titrate carvedilol to 12.5 mg twice daily. Patient will proceed with percutaneous intervention of the obtuse marginal branch vessel as scheduled. Continue to follow GFR, electrolytes, fluid balance, and daily weights. Subjective Patient seen and examined the bedside. Feeling well from a cardiovascular perspective. Blood pressure and heart rate trending upward. Reports mild left- sided abdominal discomfort this morning. MRI of the abdomen suggests volume overload with ascites and body wall edema. Creatinine has trended down to normal range. Denies chest pain or unusual shortness of breath. No orthopnea, PND, or lower extremity edema. Offers no other concerns/complaints at this time. Review of Systems Review of Systems: All systems reviewed & are unremarkable except as noted in HPI & below Physical Exam Physical Exam: General: NAD, AAO x3, well nourished. HEENT: Normocephalic. Atraumatic. Conjunctiva pink, no scleral icterus. Neck: No carotid bruits, the carotid upstrokes are brisk. No JVD. No HJR Heart: Regular normal S-1 and S-2 no S-3 or S-4 gallop. No murmurs or rub appreciated. PMI is not displaced. No RV heave. Lungs: + Crackles at the left base, no rales, rhonchi, or wheeze. Abdomen: Normal bowel sounds. Soft. Nontender. No masses or organomegaly. No ab dominal bruits. Extremities: No clubbing, cyanosis, or edema. Pulses: radial=2/4, Dorsalis pedis =2/4. Neuro: Cranial nerves grossly intact. No focal motor deficit. Results & Data Vital Signs (Past 12 Hours) Vital Signs Temp Pulse Pulse Resp BP Pulse Ox 04/21/19 08:00 88 04/21/19 07:31 36.6 C 92 H 18 159/97 H 96 04/21/19 02:57 36.7 C 86 16 150/97 H 98 04/20/19 23:30 95 H 04/20/19 23:19 36.4 C L 96 H 16 150/99 H 94
[2019-04-21] MEDS ORDERED: FUROSEMIDE 40 MG/4 ML VIAL IV STA (11:13)
--- NOTE | 2019-04-21 12:09 | Pre Anesthesia Assessment ---
Date of Service April 21, 2019 Pre Sedation Assessment Vital Signs Temp Pulse Pulse Resp BP BP Pulse Ox 04/21/19 11:00 97.7 F 83 16 128/87 96 04/21/19 08:00 88 04/21/19 07:31 97.9 F 92 H 18 159/97 H 96 04/21/19 02:57 98.1 F 86 16 150/97 H 98 04/20/19 23:30 95 H 04/20/19 23:19 97.5 F L 96 H 16 150/99 H 94 04/20/19 19:51 98.4 F 88 19 136/90 94 04/20/19 17:32 88 H 130/89 04/20/19 16:00 81 04/20/19 15:53 97.7 F 81 16 158/89 H 95 Cardiovascular RRR, no murmur, no edema Respiratory normal respiratory effort, lungs clear to auscultation Pre-Sedation Airway Assessment Smoking Status: Former smoker Hx Sleep Apnea: No Hx Difficult Intubation: No Short, Thick Neck: No Thyromental Distance: > or= 3.5 Finger Breadths Mallampati Class: II ASA: ASA3 Procedure Planning Contraindications for Sedation: none Current Medications Reviewed: Yes Notes The planned sedation has been discussed with the patient. Informed Consent was obtained. I have identified the patient, determined the appropriateness of se dation and have assessed the patient immediately prior to the procedure. All medicine(s) and interventions are by my order.
[2019-04-21] MEDS ORDERED: NiCARDipine HCL INJ 2.5 MG/ML 10 ML AMP ONE (12:15)
[2019-04-21] MEDS ORDERED: MIDAZOLAM HCL 1 MG/ML 2ML VIAL ONE (12:15)
[2019-04-21] MEDS ORDERED: HEPARIN (PORCINE) 1000 UNIT/ML 10 ML (CATH LAB USE ONLY) ONE (12:15)
[2019-04-21] MEDS ORDERED: fentaNYL citrate 100 MCG/2 ML VIAL ONE (12:15)
[2019-04-21] MEDS ORDERED: NITROGLYCERIN/D5W 100MCG/ML 20ML SYR ONE (12:16)
--- NOTE | 2019-04-21 13:22 | Gastroenterology Progress Note ---
Date of Service April 21, 2019 Assessment & Plan (1) Abnormal liver function tests: 74-year-old male with a history of congestive heart failure with significant elevation of his liver associated enzymes. Based on the historical information we suspect the patient has ischemic hepatitis. This is typically a self-limited condition and should continue to resolve without interventions. The patient does have a history of nausea which could be multifactorial or perhaps related to 1 of his medication such as metformin. It appears that this medication was discontinued. Recommendations Continue to monitor liver enzymes Agree with discontinuation of metformin Please call with any questions or concerns Supervising Physician Co-Signing Physician Notes I performed a history and physical examination of the patient, including specifically on physical exam - soft, nontender abdomen. I have discussed the patient's management with Aaron. Please refer to the nurse practitioner's note for the documented findings and plan of care. MRCP negative for biliary etiology. LFTs improved and pain resolved. Recall GI if any questions or concerns. Subjective Mr. Chavez is a 74 yr old admitted with NSTEMI. GI consulted for elevated LFTs, improving T bili 2.3-> Today, pt says abdominal pain, nausea/vomiting resolved over the weekend and he was able to eat/drink Sun and Sunday. This morning he is NPO for cardiac cath, possible stenting. Physical Exam Constitutional: WD/WN, vitals as above + obese Eyes: PERRL, conjunctivae normal, anicteric sclerae ENMT: external ear and nose normal, oropharynx normal Neck: trachea midline, no thyromegaly Respiratory: normal respiratory effort, lungs clear to auscultation Cardiovascular: RRR, no murmur, no edema Gastrointestinal (Abdomen): Inspection/Auscultation: abdomen normal to inspection; abdomen not distended Percussion/Palpation: + abdomen tender (diffusely, over the entire upper abdomen) and abdomen soft; no guarding Skin: no rashes, warm and dry normal turgor Neurologic: PERRL, EOMI, accommodation nl, no face palsy, no dysarthria Psychiatric: A+Ox3, euthymic affect Lymphatic: no cervical or axillary lymphadenopathy Results & Data Vital Signs (Past 12 Hours) Vital Signs Temp Pulse Pulse Resp BP BP Pulse Ox 04/21/19 11:00 36.5 C 83 16 128/87 96 04/21/19 08:00 88 04/21/19 07:31 36.6 C 92 H 18 159/97 H 96 04/21/19 02:57 36.7 C 86 16 150/97 H 98
--- NOTE | 2019-04-21 14:21 | Post Anesthesia Assessment ---
Date of Service April 21, 2019 Post Sedation Assessment Vital Signs Temp Pulse Pulse Resp BP BP Pulse Ox 04/21/19 11:00 97.7 F 83 16 128/87 96 04/21/19 08:00 88 04/21/19 07:31 97.9 F 92 H 18 159/97 H 96 04/21/19 02:57 98.1 F 86 16 150/97 H 98 04/20/19 23:30 95 H 04/20/19 23:19 97.5 F L 96 H 16 150/99 H 94 04/20/19 19:51 98.4 F 88 19 136/90 94 04/20/19 17:32 88 H 130/89 04/20/19 16:00 81 04/20/19 15:53 97.7 F 81 16 158/89 H 95 Recovery Score Activity: Moves 4 extremities Respiration: Deep Breath/Cough Circulation: +/-20% PreAnes Value Consciousness: Fully Awake Oxygen Saturation: O2 needed for >90% Discharge Sedation Level of Care: Fast Track Phase II Post Sedation Plan On clinical assessment, the patient appears to have tolerated the sedation without complications. Patient is recovering as anticipated. Patient will continue to be monitored by nursing and may be discharged when sedation discharge criteria are met per below protocol. Upon Completions of procedure and additional 15 minutes continue every 5 minute vital signs and the P.A.R. score; then discharge to a Phase I or Fast Track to Phase II per the following guidelines: * Discharge Patient to appropriate Phase II area if PAR is 8 or greater or return to pre- procedure baseline. The post - procedure orders will be as directed. * If PAR score is less than 8 or not return to pre-procedure baseline then patient will follow Phase I monitoring till PAR is reached for Phase II. The Phase I may be done in procedure room or may call to secure a Phase I area. * If naloxone or flumazenil are used for reversal, hold in Phase I for continued monitoring from when last reversal dose was given for a minimum of 60 minutes or longer pending the nurse and/or physician discretion of patient condition before discharge to Phase II. Please call the Sedation Physician to re-evaluate and complete post-note for discharge to Phase II area. Do NOT discharge from procedure sedation or Phase 1 until post- sedation evaluation note is complete by procedure /sedation MD Sedation Discharge Instructions to be given to the patient at discharge to home.
[2019-04-21] MEDS ORDERED: CLOPIDOGREL BISULFATE 300 MG TAB ONE (14:24)
--- NOTE | 2019-04-21 14:28 | Cardiac Catheterization ---
ACC Data: Cork Wirer Cardiac Status Clinical evaluation leading to the procedure CAD Presenation: Non STEMI Anginal Classification: CCS IV Heart Failure: NYHA Class: CCS IV Cardiogenic Shock within 24 Hours: No Cardiac Arrest within 24 Hours: No Imaging Studies Past 6 Months: Yes Stress Studies Past 6 Months: No Diagnostic Physicians Name: Lauri Lozano MD Status: Elective Closure Device Percutaneous Entry Location: Radial Closure Device: Radial Band Recommendations: PCI without planned CABG PCI Indication: PCI for high risk Non-CHARLES Lesion Segment Name: OM1 Culprit Artery: Yes Stenosis Prior to Rx (%): 95 Chronic Total Occlusion: No IVUS: No FFR: No Pre-Procedure PALOMA Flow: 3 Previously Treated Lesion: No Lesion Complexity: Non-High/Non-C Lesion Length (mm): 20 Thrombus Present: No Bifurcation Lesion: No Guidewire Across Lesion: Stenosis Post-Procedure (%): 0 Post-Procedure PALOMA Flow: 3 Devices(s) Deployed: Yes Yes Intraprocedure Events Significant Disection: No Perforation: No Cardiac Cath Procedure Full Procedure Date April 21, 2019 Pre-Procedure Diagnosis Pre-Procedure Diagnosis: Acute Coronary Syndrome, CHF and Cardiomyopathy AUC Score AUC Score: 7 Post-Procedure Diagnosis Post-Procedure Diagnosis: Severe CAD, Successful PCI and Elevated Intracardiac Pressures Procedure(s) Performed Procedure(s) Performed: Left Heart Cath and Drug Eluting Stent Bullet Slug Casting Machine Operator Lauri Lozano MD Sweet Pickle Maker(s) Tim Estimated Blood Loss Estimated Blood Loss: 15 Medication(s) Medication(s): Clopidogrel, Fentanyl, Heparin, Lidocaine 1%, Nicardipine, Nitroglycerin and Versed Summary of Findings Indication: Staged PCI of OM1. Severe LV dysfunction, acute systolic heart failure, ACS. Access: 6 Fr right radial artery Catheters: EBU 3.5 guide pigtail Findings: For full details of patient's coronary angiography please cath report dictated on 04/16/2019 Briefly, patient found to have severe multivessel disease including a 95% proximal stenosis in his high first OM. Decision to proceed with PCI. PCI Left main cannulated with EBU 3.5 guide Mixed Animal Veterinarian 50 wire placed across OM1 lesion into distal vessel Proximal OM1 dilated with 2.0 compliant balloon OM1 stented with 2.25 x 28 mm Xience Debora drug-eluting stent from ostium to mid segment Stent postdilated with 2.5 NC balloon IC vasodilators administered for coronary spasm Post procedure stent well-expanded, PALOMA-3 flow. No apparent coronary complications. Postprocedure LVEDP - 26 Arterial Closure: TR band Summary: 1. Successful PCI of high OM1 with single drug-eluting stent (2.25 x 28 mm Xience Debora; postdilated with 2.5 NC). 2. Elevated intracardiac filling pressure Recommendations: Return to PCU for continued monitoring Loaded with clopidogrel 600 mg in lab engineer Continue DAPT for at least one year Continued diuresis per Dr. Estes. Hemodynamics Rest Ao:: 125/76/101 Final Ao: 124/75/65 LV: 125/26 Recommendations Recommendations: PCI without planned CABG Specimens Specimens: None Radiation Exposure (mGy) 1675 Contrast (mls) 70 Fluids (cc crystalloids) Fluids (cc crystalloids): 0 Drains Drains: None Anesthesia Moderate Procedural Complication(s) None Disposition PCU I attest to the content of the Intraoperative Record and any orders documented therein. Any exceptions are noted below.
[2019-04-21] MEDS: FUROSEMIDE 40 MG in SYRINGE 0 ML IV SCH (15:34)
--- NOTE | 2019-04-21 18:48 | Hospitalist Progress Note ---
Date of Service April 21, 2019 Assessment & Plan (1) Acute non-ST elevation myocardial infarction (NSTEMI): Presented to ED with chest pain. History of coronary artery disease with remote history of PCI, details not available. Initial troponin 0 0.079. Repeat troponin 0 0.127. Initial EKG demonstrated sinus rhythm at 70/minute with anterolateral T wave changes. Treated with aspirin, IV heparin, metoprolol, and atorvastatin. Cardiology consulted. Echocardiogram demonstrated global hypokinesis of left ventricle with estimated LVEF less than 20%. Cardiac catheterization demonstrated multivessel disease with complete occlusion of RCA with [id number] collaterals, 95% stenosis OM1, 80 to 90% stenosis of distal LAD, complete occlusion of ostial first diagonal with collaterals. Treated with aspirin, carvedilol. Statin held due to elevated LFT's. PCI with drug-eluting stent OM1 performed. Continue aspirin and carvedilol. Resume statin if LFT's normalize. (2) Cardiomyopathy: Chest x-ray showed cardiomegaly without pulmonary edema. Echocardiogram demonstrated LVEF less than 20%. Probable ischemic cardiomyopathy. Receiving carvedilol. No TIMMY or ARB because of renal insufficiency. Ongoing management per Cardiology. (3) Lactic acidosis: Serum lactate at time of admission 4.0, repeat 04/20 = 1.8. Does not appear to be septic. No fever, leukocytosis, or evidence of infection. Procalcitonin normal. Lactic acidosis may have been secondary to cardiomyopathy with low cardiac output and/or shock liver. Patient takes metformin for DM- best to discontinue in light of cardiomyopathy + elevated lactate. (4) MERRILL (acute kidney injury): Serum creatinine day of admission was 1.07. Creatinine yesterday was 1.66. Acute kidney injury, possible ATN secondary to cardiac cath. Received gentle IV hydration. Creatinine today = 0.90. Follow. (5) Abnormal liver function tests: Elevated LFT's could be secondary to passive congestion of liver from right- sided CHF, statin, fatty liver, biliary tract disease, other etiologies. US RUQ- fatty infiltration, no apparent acute process. Checking acute viral serologies. Holding statin. GI consulted. May have shock liver secondary to hypotension. Symptoms / labs improved. Continue to follow. (6) Hypertension: Titration of cardiovascular medications per Cardiology. (7) Dyslipidemia: LDL-C = 45. Hold atorvastatin in light of elevated LFT's. (8) Diabetes mellitus type 2 with complications: Diabetes mellitus type 2, complicated by ischemic heart disease. Usually managed with insulin 70/30, regular insulin, and metformin. Metformin should be discontinued because of low cardiac output + lactic acidosis. Random glucose at time of admission was 72. Hemoglobin A1c 8.5. Glycemic management per basal/bolus insulin protocol. Fasting blood sugar today = 158. (9) GERD (gastroesophageal reflux disease): Continue PPI. (10) Anemia: Hemoglobin at time of admission was 13.1. MCV 84. Iron 56, TIBC 341, transferrin 277, ferritin 73, folate 20, vitamin B12 1054. Patient reports rectal bleeding attributed to hemorrhoids. Ideally colonoscopy should be considered if not recently done, but cardiac risk may be prohibitive. (11) Thrombocytopenia: Platelet count day of admission was 135,000 and has fallen to 115,000. Heparin held. HIT screen negative. Follow. (12) DVT prophylaxis: Initially received IV heparin for non-STEMI. Transitioned to SQ heparin- holding for elevated INR and thrombocytopenia. SCD's. Ambulate. (13) Discharge planning issues: Anticipated return to [facility] under care of medical team there. Will need ongoing follow-up with Cardiology. Subjective Recheck for multiple problems. Patient seen in their room around 1540. Underwent repeat cath today for PCI. PCI of OM1 performed with drug eluting stent. Doing well after procedure. No chest pain or SOB. Review of Systems: Constitutional- no fever. Cardiac- as noted above. Pulmonary- no cough or SOB. GI- no nausea, vomiting, diarrhea, melena, hematochezia. - no urinary symptoms. Otherwise, as noted above. Physical Exam Constitutional: no acute distress Respiratory: no respiratory distress Auscultation: lungs clear to auscultation bilaterally Cardiovascular: Rate/Rhythm: regular rate and regular rhythm Heart Sounds: no gallop, no murmur and no cardiac rub Vessels: + JVD Extremities: + edema (trace); no calf tenderness Gastrointestinal (Abdomen): normal bowel sounds, soft, nontender, no hepatosplenomegaly Inspection/Auscultation: normal bowel sounds P ercussion/Palpation: abdomen soft; abdomen nontender Musculoskeletal: Extremities: + extremities abnormal to inspection (compression band right wrist) Skin: no rashes, warm and dry Psychiatric: Orientation: alert and oriented x 3 Results & Data Vital Signs (Past 12 Hours) Vital Signs Temp Pulse Pulse Pulse Resp BP BP 04/21/19 17:46 36.5 C 82 18 129/81 04/21/19 17:14 37 C 83 19 115/74 04/21/19 16:44 36.5 C 88 20 122/84 04/21/19 16:15 36.6 C 87 20 133/89 04/21/19 15:49 36.6 C 90 18 142/91 H 04/21/19 15:34 36.5 C 91 H 20 143/91 H 04/21/19 14:45 81 16 143/95 H 04/21/19 14:30 36.6 C 85 16 143/91 H 04/21/19 11:00 36.5 C 83 16 128/87 04/21/19 08:00 88 04/21/19 07:31 36.6 C 92 H 18 159/97 H Pulse Ox 04/21/19 17:46 94 04/21/19 17:14 96 04/21/19 16:44 94 04/21/19 16:15 96 04/21/19 15:49 95 04/21/19 15:34 94 04/21/19 14:45 98 04/21/19 14:30 95 04/21/19 11:00 96 04/21/19 08:00 04/21/19 07:31 96 Laboratory Results Laboratory Results - last 24 hr 04/20/19 04/21/19 04/21/19 20:18 07:18 07:36 WBC 3.89 L RBC 4.50 L Hgb 12.0 L Hct 37.1 L MCV 82.4 MCH 26.7 MCHC 32.3 RDW Std Deviation 51.8 H RDW Coeff of Maria Guadalupe 17.2 H Plt Count 115 L MPV 10.1 Sodium Potassium Chloride Carbon Dioxide Anion Gap BUN Creatinine Est Cr Clr Drug Dosing Est GFR ( Amer) Est GFR (Non-Af Amer) BUN/Creatinine Ratio Glucose POC Glucose 154 H 158 H Calcium Total Bilirubin Direct Bilirubin AST ALT Alkaline Phosphatase Total Protein Albumin Globulin Albumin/Globulin Ratio Heparin-PF4 Ab Screen 04/21/19 04/21/19 04/21/19 07:36 07:36 11:17 WBC RBC Hgb Hct MCV MCH MCHC RDW Std Deviation RDW Coeff of Maria Guadalupe Plt Count MPV Sodium 138 Potassium 4.0 Chloride 107 Carbon Dioxide 25 Anion Gap 7.0 BUN 20 H Creatinine 0.90 Est Cr Clr Drug Dosing 74.5 Est GFR ( Amer) 95.8 Est GFR (Non-Af Amer) 82.7 BUN/Creatinine Ratio 22.1 H Glucose 171 H POC Glucose 165 H Calcium 8.5 Total Bilirubin 1.2 H Direct Bilirubin 0.5 H AST 242 H ALT 419 H Alkaline Phosphatase 211 H Total Protein 6.5 Albumin 2.5 L Globulin 4.0 Albumin/Globulin Ratio 0.6 L Heparin-PF4 Ab Screen Negative 04/21/19 16:20 WBC RBC Hgb Hct MCV MCH MCHC RDW Std Deviation RDW Coeff of Maria Guadalupe Plt Count MPV Sodium Potassium Chloride Carbon Dioxide Anion Gap BUN Creatinine Est Cr Clr Drug Dosing Est GFR ( Amer) Est GFR (Non-Af Amer) BUN/Creatinine Ratio Glucose POC Glucose 215 H Calcium Total Bilirubin Direct Bilirubin AST ALT Alkaline Phosphatase Total Protein Albumin Globulin Albumin/Globulin Ratio Heparin-PF4 Ab Screen
[2019-04-21] MEDS: carvediloL 12.5 MG TAB PO SCH (20:35)
[2019-04-21] MEDS: COUGH DROP (SUGAR FREE) LOZ 24 LOZ/1 BOX BUCCAL PRN (23:55)
--- NOTE | 2019-04-22 07:06 | XRay Report ---
XR chest 1V portable HISTORY: 74 years-old Male CHF congestive heart failure with acute shortness of breath COMPARISON: Chest radiograph 04/18/2019 TECHNIQUE: Portable AP view of the chest FINDINGS: Cardiac silhouette is enlarged. No overt pulmonary edema. Trace pleural effusions with minimal patchy left basilar opacities. 5 mm nodular focus of the left upper lung may reflect a calcified granuloma No pneumothorax. Degenerative changes of the shoulders and spine. IMPRESSION: 1. Cardiomegaly without overt pulmonary edema. 2. Trace pleural effusions. 3. Minimal left basilar opacities suggestive of atelectasis or pneumonitis. The above report was generated using voice recognition software. It may contain grammatical, syntax o r spelling errors. Electronically signed by: Jimmy Cruz M.D. 04/22/2019 7:05 AM
[2019-04-22 07:32] LABS: Hematocrit (blood only) 35.6 % (42-52); Hemoglobin 11.7 g/dL (14.0-18.0); Mean Corpuscular Hemoglobin 26.7 pg (25-34); Mean Corpuscular Hgb Conc 32.9 g/dL (32-36); Mean Corpuscular Volume 81.1 fL (80-100); Mean Platelet Volume 9.8 fL (7.4-10.4); Platelet Count 134 K/uL (130-400); RDW Coefficient of Variation 16.9 % (11.5-14.5); RDW Standard Deviation 50.5 fL (36.4-46.3); Red Blood Count 4.39 M/uL (4.7-6.1); White Blood Count 3.54 K/uL (4.8-10.8)
[2019-04-22] MEDS: FUROSEMIDE 40 MG in SYRINGE 0 ML IV SCH ×2 (07:53→16:44)
[2019-04-22] MEDS: allopurinoL 300 MG TAB PO SCH (07:54)
[2019-04-22] MEDS: NYSTATIN SUSP 500,000 U/5 ML UDC PO SCH ×4 (07:55→20:56)
[2019-04-22] MEDS: CLOPIDOGREL BISULFATE 75 MG TAB PO SCH (07:55)
[2019-04-22] MEDS: ASPIRIN 81 MG ECTAB PO SCH (07:55)
[2019-04-22] MEDS: carvediloL 12.5 MG TAB PO SCH ×2 (07:55→20:57)
[2019-04-22] MEDS: DULOXETINE HCL 60 MG CAP PO SCH (07:56)
[2019-04-22] MEDS: INSULIN GLARGINE SOLOSTAR 100 UNITS/ML 3 ML PEN SC SCH ×2 (07:57→20:58)
[2019-04-22] MEDS: INSULIN ASPART 100 UNITS/ML 3 ML PEN SC SCH ×4 (07:58→20:59)
[2019-04-22 08:01] LABS: Albumin Level 2.5 gm/dl (3.4-5.0); BUN Creatinine Ratio 17.9 (10-20); Bilirubin Direct 0.4 mg/dl (0-0.2); Calcium 8.3 mg/dl (8.5-10.1); Creatinine Clr Calc Pharmacy 65.8 ml/min; Est GFR (African American) 90.9; Est GFR (Non-African American) 78.4; Magnesium 1.8 mg/dl (1.8-2.4); Potassium 3.9 mmol/L (3.5-5.1)
[2019-04-22 08:05] LABS: Albumin Globulin Ratio 0.6 (0.9-2); Bilirubin,Total 0.9 mg/dl (0.2-1); Total Protein 6.5 gm/dl (6.4-8.2)
--- NOTE | 2019-04-22 10:51 | Cardiology Progress Note ---
Date of Service April 22, 2019 Assessment & Plan (1) Acute on chronic systolic ACC/AHA stage C congestive heart failure: (2) Ischemic cardiomyopathy: (3) Acute non-ST elevation myocardial infarction (NSTEMI): (4) MERRILL (acute kidney injury): (5) Abnormal liver function tests: (6) Lactic acidosis: Increase Lasix to 40 mg IV twice daily. Follow fluid balance, daily weight, GFR, and electrolytes daily. Add low-dose TIMMY inhibitor, lisinopril 5 mg daily. Continue dual antiplatelet therapy for minimum of 6 months post percutaneous intervention, preferably 1 year. Carvedilol recently titrated to 12.5 mg twice daily 04/21/2019. Continue telemetry monitoring. Subjective Patient seen and examined at the bedside. Successful percutaneous intervention of obtuse marginal branch vessel performed yesterday. Markedly elevated left ventricular end-diastolic pressure noted. Patient received a dose of IV Lasix last evening as well as this morning. Weight is down approximately 2 kg. Dyspnea improving. Creatinine stable. LFTs trending downward. Review of Systems Review of Systems: All systems reviewed & are unremarkable except as noted in HPI & below Physical Exam Physical Exam: General: NAD, AAO x3, well nourished. HEENT: Normocephalic. Atraumatic. Conjunctiva pink, no scleral icterus. Neck: No carotid bruits, the carotid upstrokes are brisk. No JVD. No HJR Heart: Regular normal S-1 and S-2 no S-3 or S-4 gallop. No murmurs or rub appreciated. PMI is not displaced. No RV heave. Lungs: + Crackles at the left base, no rales, rhonchi, or wheeze. Abdomen: Normal bowel sounds. Soft. Nontender. No masses or organomegaly. No abdominal bruits. Extremities: No clubbing, cyanosis, or edema. Pulses: radial=2/4, Dorsalis pedis =2/4. Neuro: Cranial nerves grossly intact. No focal motor deficit. Results & Data Vital Signs (Past 12 Hours) Vital Signs Temp Pulse Pulse Resp BP BP Pulse Ox 04/22/19 07:21 36.6 C 83 19 111/71 97 04/22/19 03:26 36.6 C 78 15 139/76 99 04/22/19 00:00 88 11/04/19 23:10 36.8 C 88 18 129/83 99
[2019-04-22] MEDS: lisinopriL 5 MG TAB PO SCH (11:15)
[2019-04-22 13:35] LABS: CMV IgG Antibody >10.00 U/ML; Herpes Simplex Ab IgG-1 < 0.90 INDEX (< 0.90)
[2019-04-22] MEDS: COUGH DROP (SUGAR FREE) LOZ 24 LOZ/1 BOX BUCCAL PRN (21:05)
--- NOTE | 2019-04-22 22:49 | Hospitalist Progress Note ---
Date of Service April 22, 2019 Assessment & Plan (1) Acute non-ST elevation myocardial infarction (NSTEMI): Presented to ED with chest pain. History of coronary artery disease with remote history of PCI, details not available. Initial troponin 0 0.079. Repeat troponin 0 0.127. Initial EKG demonstrated sinus rhythm at 70/minute with anterolateral T wave changes. Treated with aspirin, IV heparin, metoprolol, and atorvastatin. Cardiology consulted. Echocardiogram demonstrated global hypokinesis of left ventricle with estimated LVEF less than 20%. Cardiac catheterization demonstrated multivessel disease with complete occlusion of RCA with [id number] collaterals, 95% stenosis OM1, 80 to 90% stenosis of distal LAD, complete occlusion of ostial first diagonal with collaterals. Treated with aspirin, carvedilol. Statin held due to elevated LFT's. PCI with drug-eluting stent OM1 performed 04/21. Continue aspirin and carvedilol. Resume statin if LFT's normalize. (2) Cardiomyopathy: Chest x-ray showed cardiomegaly without pulmonary edema. Echocardiogram demonstrated LVEF less than 20%. Probable ischemic cardiomyopathy. Subsequent exam and imaging showed evidence of fluid overload. Acute on chronic left ventricular systolic heart failure. Receiving carvedilol. No TIMMY or ARB initially because of renal insufficiency; lisinopril started today. Titrate diuretics. Ongoing management per Cardiology. (3) Lactic acidosis: Serum lactate at time of admission 4.0, repeat 04/20 = 1.8. Does not appear to be septic. No fever, leukocytosis, or evidence of infection. Procalcitonin normal. Lactic acidosis may have been secondary to cardiomyopathy with low cardiac output and/or shock liver. Patient takes metformin for DM- best to discontinue in light of cardiomyopathy + elevated lactate. (4) MERRILL (acute kidney injury): Serum creatinine day of admission was 1.07. Creatinine yesterday was 1.66. Acute kidney injury, possible ATN secondary to cardiac cath. Received gentle IV hydration. Creatinine today = 0.94. Follow. (5) Abnormal liver function tests: Elevated LFT's could be secondary to passive congestion of liver from right- sided CHF, statin, fatty liver, biliary tract disease, other etiologies. US RUQ- fatty infiltration, no apparent acute process. Checking acute viral serologies. Holding statin. GI consulted. May have shock liver secondary to hypotension. Symptoms / labs improved. Today's liver profile: Laboratory Tests 04/22/19 07:18 Total Bilirubin 0.9 AST 152 H ALT 333 H Alkaline Phosphatase 206 H Continue to follow. (6) Hypertension: Titration of cardiovascular medications per Cardiology. (7) Dyslipidemia: LDL-C = 45. Hold atorvastatin in light of elevated LFT's. (8) Diabetes mellitus type 2 with complications: Diabetes mellitus type 2, complicated by ischemic heart disease. Usually managed with insulin 70/30, regular insulin, and metformin. Metformin should be discontinued because of low cardiac output + lactic acidosis. Random glucose at time of admission was 72. Hemoglobin A1c 8.5. Glycemic management per basal/bolus insulin protocol. Fasting blood sugar today = 183. Adjust insulin dosing. Anticipate return to [facility] with 70/30 BID, no metformin. (9) GERD (gastroesophageal reflux disease): Continue PPI. (10) Anemia: Hemoglobin at time of admission was 13.1. MCV 84. Iron 56, TIBC 341, transferrin 277, ferritin 73, folate 20, vitamin B12 1054. Patient reports rectal bleeding attributed to hemorrhoids. Ideally colonoscopy should be considered if not recently done, but cardiac risk may be prohibitive. (11) Thrombocytopenia: Platelet count day of admission was 135,000 and fell as low as 115,000. Heparin held. HIT screen negative. Platelet count today = 134. Follow. (12) DVT prophylaxis: Initially received IV heparin for non-STEMI. Transitioned to SQ heparin- holding for elevated INR and thrombocytopenia. Recheck platelets and INR tomorrow- consider restarting SQ heparin or enoxaparin. SCD's. Ambulate. (13) Discharge planning issues: Anticipated return to [facility] under care of medical team there. Will need ongoing follow-up with Cardiology. Subjective Recheck for multiple problems. Patient seen in their room around 1030. No chest pain. No SOB. Received furosemide with effective diuresis. Review of Systems: Constitutional- no fever. Cardiac- as noted above. Pulmonary- no cough or SOB. GI- no nausea, vomiting, diarrhea, melena, hematochezia. - no urinary symptoms. Otherwise, as noted above. Physical Exam Constitutional: no acute distress Respiratory: no respiratory distress Auscultation: lungs clear to auscultation bilaterally Cardiovascular: Rate/Rhythm: regular rate and regular rhythm Heart Sounds: no gallop, no murmur and no cardiac rub Vessels: + JVD Extremities: + edema (trace); no calf tenderness Gastrointestinal (Abdomen): normal bowel sounds, soft, nontender, no hepatosplenomegaly Inspection/Auscultation: normal bowel sounds Percussion/Palpation: abdomen soft; abdomen nontender Skin: no rashes, warm and dry Psychiatric: Orientation: alert and oriented x 3 Results & Data Vital Signs (Past 12 Hours) Vital Signs Temp Pulse Resp BP Pulse Ox 04/22/19 19:14 36.6 C 81 18 124/78 99 04/22/19 15:17 36.5 C 76 19 111/69 99 04/22/19 11:25 36.5 C 81 17 128/74 99 Laboratory Results 04/22/19 07:18 04/22/19 07:18
[2019-04-23 06:36] LABS: Hematocrit (blood only) 38.3 % (42-52); Hemoglobin 12.3 g/dL (14.0-18.0); Mean Corpuscular Hemoglobin 26.4 pg (25-34); Mean Corpuscular Hgb Conc 32.1 g/dL (32-36); Mean Corpuscular Volume 82.2 fL (80-100); Mean Platelet Volume 9.9 fL (7.4-10.4); Platelet Count 135 K/uL (130-400); RDW Coefficient of Variation 17.1 % (11.5-14.5); RDW Standard Deviation 51.1 fL (36.4-46.3); Red Blood Count 4.66 M/uL (4.7-6.1); White Blood Count 3.09 K/uL (4.8-10.8)
[2019-04-23 06:47] LABS: INR 1.2 (0.9-1.1); Prothrombin Time 11.8 Seconds (9.0-12.0)
[2019-04-23 07:15] LABS: Albumin Level 2.5 gm/dl (3.4-5.0); BUN Creatinine Ratio 17.4 (10-20); Bilirubin Direct 0.3 mg/dl (0-0.2); Calcium 8.9 mg/dl (8.5-10.1); Creatinine Clr Calc Pharmacy 67.2 ml/min; Est GFR (African American) 93.3; Est GFR (Non-African American) 80.5
[2019-04-23 07:18] LABS: Albumin Globulin Ratio 0.6 (0.9-2); Bilirubin,Total 0.7 mg/dl (0.2-1); Globulin 4.1 gm/dl (2.5-4.0); Total Protein 6.6 gm/dl (6.4-8.2)
[2019-04-23] MEDS: INSULIN GLARGINE SOLOSTAR 100 UNITS/ML 3 ML PEN SC SCH ×2 (07:47→20:40)
[2019-04-23] MEDS: INSULIN ASPART 100 UNITS/ML 3 ML PEN SC SCH ×5 (07:47→20:39)
--- NOTE | 2019-04-23 08:27 | Cardiology Progress Note ---
Date of Service April 23, 2019 Assessment & Plan (1) Acute on chronic systolic ACC/AHA stage C congestive heart failure: (2) Ischemic cardiomyopathy: (3) Acute non-ST elevation myocardial infarction (NSTEMI): (4) MERRILL (acute kidney injury): (5) Abnormal liver function tests: (6) Lactic acidosis: Continue Lasix to 40 mg IV twice daily. Follow fluid balance, daily weight, GFR, and electrolytes daily. Continue lisinopril 5 mg daily, carvedilol 12.5 mg twice daily, and dual antipl atelet therapy for minimum of 6 months post percutaneous intervention, preferably 1 year. Discharge in 24 to 48 hours pending clinical course. Subjective Patient seen and examined at the bedside. Fluid balance -1700 cc over the last 24 hours. Weight loss noted. Renal function remains stable. Patient notes continued mild dyspnea with minimal exertion. No orthopnea or PND. No lower extremity edema. No dysrhythmias on telemetry. Review of Systems Review of Systems: All systems reviewed & are unremarkable except as noted in HPI & below Physical Exam Physical Exam: General: NAD, AAO x3, well nourished. HEENT: Normocephalic. Atraumatic. Conjunctiva pink, no scleral icterus. Neck: No carotid bruits, the carotid upstrokes are brisk. No JVD. No HJR Heart: Regular normal S-1 and S-2 no S-3 or S-4 gallop. No murmurs or rub appreciated. PMI is not displaced. No RV heave. Lungs: + Crackles at the left base, no rales, rhonchi, or wheeze. Abdomen: Normal bowel sounds. Soft. Nontender. No masses or organomegaly. No abdominal bruits. Extremities: No clubbing, cyanosis, or edema. Pulses: radial=2/4, Dorsalis pedis =2/4. Neuro: Cranial nerves grossly intact. No focal motor deficit. Results & Data Vital Signs (Past 12 Hours) Vital Signs Temp Pulse Pulse Resp BP Pulse Ox 04/23/19 07:28 36.5 C 81 18 125/83 98 04/23/19 03:15 36.8 C 82 18 124/79 98 04/23/19 00:00 85 04/22/19 23:28 36.7 C 82 20 115/73 95
[2019-04-23] MEDS: carvediloL 12.5 MG TAB PO SCH ×2 (08:30→20:43)
[2019-04-23] MEDS: FUROSEMIDE 40 MG in SYRINGE 0 ML IV SCH ×2 (08:30→16:54)
[2019-04-23] MEDS: ASPIRIN 81 MG ECTAB PO SCH (08:31)
[2019-04-23] MEDS: DULOXETINE HCL 60 MG CAP PO SCH (08:31)
[2019-04-23] MEDS: CLOPIDOGREL BISULFATE 75 MG TAB PO SCH (08:31)
[2019-04-23] MEDS: NYSTATIN SUSP 500,000 U/5 ML UDC PO SCH ×4 (08:31→20:43)
[2019-04-23] MEDS: lisinopriL 5 MG TAB PO SCH (08:31)
[2019-04-23] MEDS: allopurinoL 300 MG TAB PO SCH (08:32)
[2019-04-23] MEDS: FLUTICASONE PROPIONATE NA SPR 16 GM BTL SCH ×2 (08:33→20:43)
[2019-04-23 10:23] LABS: Anti Nuclear Antibody Screen NEGATIVE (NEGATIVE); Hepatitis A Antibody IgM NON-REACTIVE (NON-REACTIVE); Hepatitis B Core Antibody IgM NON-REACTIVE (NON-REACTIVE)
--- NOTE | 2019-04-23 18:30 | Hospitalist Progress Note ---
Date of Service April 23, 2019 Assessment & Plan (1) Acute non-ST elevation myocardial infarction (NSTEMI): NSTEMI H/O CAD S/P PCI Cardiac catheterization demonstrated multivessel disease with complete occlusion of RCA with [id number] collaterals, 95% stenosis OM1, 80 to 90% stenosis of distal LAD, complete occlusion of ostial first diagonal with collaterals. ECHO: Septal wall dyskinetic, global severe hypokinesis to akinesis, EF <20% S/P PCI--drug-eluting stent OM1 IV heparin discontinued Continue aspirin, Plavix, Coreg, lisinopril Statin held secondary to elevated LFTs Monitor LFTs and resume statin as able Appreciate cardiology input Needs follow-up with cardiology upon discharge (2) Cardiomyopathy: Chest x-ray showed cardiomegaly without pulmonary edema. Echo: EF <20% Likely Ischemic cardiomyopathy. Monitor volume status, daily weight, I's and O's IV diuretics as per cardiology Appreciate cardiology input (3) Lactic acidosis: Serum lactate at time of admission 4.0, repeat 04/20 = 1.8. No signs of sepsis/infection Lactic acidosis likely due to CHF /shock liver, metformin use (4) MERRILL (acute kidney injury): Resolved Monitor renal function (5) Abnormal liver function tests: Elevated LFT's likely due to congestion of liver secondary to CHF, statin therapy Negative BENJAMIN, hepatitis panel LFTs trending down GI consulted (6) Hypertension: BP stable continue current meds (7) Dyslipidemia: Hold atorvastatin due to elevated LFT's. Resume as able (8) Diabetes mellitus type 2 with complications: DM II On insulin 70/30, regular insulin, and metformin. Plan to discontinue Metformin due to low cardiac output + lactic acidosis. Hemoglobin A1c 8.5. Glycemic management per basal/bolus insulin protocol. Plan to discontinue metformin upon discharge (9) GERD (gastroesophageal reflux disease): Continue PPI. (10) Anemia: MCV 84. Iron 56, TIBC 341, transferrin 277, ferritin 73, folate 20, vitamin B12 1054. Patient reports rectal bleeding due to hemorrhoids. May need colonoscopy eventually (11) Thrombocytopenia: Resolved HIT screen negative. monitor (12) DVT prophylaxis: SCDs Heparin SQ (13) Discharge planning issues: Anticipated return to [facility] Subjective Patient is seen and examined at bedside Complains of minimal shortness of breath Decreased leg edema Denies any chest pain, dizziness, nausea, abdominal pain [employer] guards at bedside Offers no other complaints Review of Systems Review of Systems: All systems reviewed & are unremarkable except as noted in HPI & below Physical Exam Physical Exam: Physical Exam: Vitals signs as noted above General Appearance:Moderately built and nourished, no apparent distress Head: normocephalic, Atraumatic Eyes: normal inspection, EOMI Neck: supple, Trachea midline Respiratory/Chest: Normal breath sounds, normal basal crackles Cardiovascular: S1, S2, No murmur Abdomen/GI:Soft, Non tender, Bowel sounds present Extremities/Musculoskelatal:normal inspection, no edema Neurologic/Psych:AAOX3, grossly no focal neurological deficits Skin: normal color, warm Results & Data Vital Signs (Past 12 Hours) Vital Signs Temp Pulse Pulse Resp BP Pulse Ox 04/23/19 15:17 36.7 C 88 18 100/62 95 04/23/19 14:20 87 04/23/19 11:07 36.7 C 78 18 109/69 96 04/23/19 07:28 36.5 C 81 18 125/83 98 04/23/19 07:20 85 Laboratory Results Short CBC 04/23/19 Range/Units 06:11 WBC 3.09 L (4.8-10.8) K/uL Hgb 12.3 L (14.0-18.0) g/dL Hct 38.3 L (42-52) % Plt Count 135 (130-400) K/uL BMP 04/23/19 06:11 Sodium 139 Potassium 4.0 Chloride 101 Carbon Dioxide 34 H BUN 16 Creatinine 0.92 Glucose 147 H Calcium 8.9 Liver Function 04/23/19 Range/Units 06:11 Total Bilirubin 0.7 (0.2-1) mg/dl Direct Bilirubin 0.3 H (0-0.2) mg/dl AST 85 H (15-37) U/L ALT 256 H (12-78) U/L Alkaline Phosphatase 203 H (45-117) U/L Albumin 2.5 L (3.4-5.0) gm/dl
[2019-04-23] MEDS: HEPARIN SOD 5,000 UNIT/0.5 ML VIAL SQ SCH (23:00)
[2019-04-24] MEDS: HEPARIN SOD 5,000 UNIT/0.5 ML VIAL SQ SCH ×2 (05:46→13:50)
[2019-04-24 06:24] LABS: Albumin Level 2.4 gm/dl (3.4-5.0); BUN Creatinine Ratio 22.2 (10-20); Bilirubin,Total 0.8 mg/dl (0.2-1); Calcium 8.5 mg/dl (8.5-10.1); Creatinine Clr Calc Pharmacy 63.7 ml/min; Est GFR (African American) 87.5; Est GFR (Non-African American) 75.5; Total Protein 6.9 gm/dl (6.4-8.2)
[2019-04-24] MEDS: INSULIN ASPART 100 UNITS/ML 3 ML PEN SC SCH ×2 (07:58→11:42)
[2019-04-24] MEDS: carvediloL 12.5 MG TAB PO SCH (07:59)
[2019-04-24] MEDS: CLOPIDOGREL BISULFATE 75 MG TAB PO SCH (08:00)
[2019-04-24] MEDS: ASPIRIN 81 MG ECTAB PO SCH (08:00)
[2019-04-24] MEDS: NYSTATIN SUSP 500,000 U/5 ML UDC PO SCH ×2 (08:00→12:52)
[2019-04-24] MEDS: allopurinoL 300 MG TAB PO SCH (08:00)
[2019-04-24] MEDS: DULOXETINE HCL 60 MG CAP PO SCH (08:00)
[2019-04-24] MEDS: FUROSEMIDE 40 MG in SYRINGE 0 ML IV SCH (08:01)
[2019-04-24] MEDS: lisinopriL 5 MG TAB PO SCH (08:01)
[2019-04-24] MEDS: FLUTICASONE PROPIONATE NA SPR 16 GM BTL SCH (08:02)
[2019-04-24] MEDS: INSULIN GLARGINE SOLOSTAR 100 UNITS/ML 3 ML PEN SC SCH (08:02)
--- NOTE | 2019-04-24 10:54 | Cardiology Progress Note ---
Date of Service April 24, 2019 Assessment & Plan (1) Acute on chronic systolic ACC/AHA stage C congestive heart failure: (2) Ischemic cardiomyopathy: (3) Acute non-ST elevation myocardial infarction (NSTEMI): (4) MERRILL (acute kidney injury): (5) Abnormal liver function tests: (6) Lactic acidosis: Discontinue IV Lasix. Recommend Lasix 40 mg p.o. daily. Continue carvedilol 12.5 mg twice daily and lisinopril 5 mg daily. Repeat basic metabolic panel on Sunday04/28/2019. Continue dual antiplatelet therapy for a minimum of 6 months post percutaneous intervention, preferably 1 year. Outpatient CHF clinic follow-up in 2 weeks. Subjective Patient seen and examined the bedside. Dyspnea on exertion improving. No orthopnea or PND. Previously reported abdominal discomfort has resolved. Tolerating current medications. No chest discomfort, palpitations, lightheadedness, dizziness, syncope, or near syncope. Telemetry demonstrates sinus rhythm in the 80s. Blood pressure controlled. No recurrent hypotension. Review of Systems Review of Systems: All systems reviewed & are unremarkable except as noted in HPI & below Physical Exam Physical Exam: General: NAD, AAO x3, well nourished. HEENT: Normocephalic. Atraumatic. Conjunctiva pink, no scleral icterus. Neck: No carotid bruits, the carotid upstrokes are brisk. No JVD. No HJR Heart: Regular normal S-1 and S-2 no S-3 or S-4 gallop. No murmurs or rub appreciated. PMI is not displaced. No RV heave. Lungs: Clear bilateral without rales, rhonchi, or wheeze. Abdomen: Normal bowel sounds. Soft. Nontender. No masses or organomegaly. No abdominal bruits. Extremities: No clubbing, cyanosis, or edema. Pulses: radial=2/4, Dorsalis pedis =2/4. Neuro: Cranial nerves grossly intact. No focal motor deficit. Results & Data Vital Signs (Past 12 Hours) Vital Signs Temp Pulse Pulse Resp BP Pulse Ox 04/24/19 08:00 36.9 C 88 18 115/73 93 04/24/19 03:09 36.4 C L 89 18 128/70 99 04/23/19 23:08 36.8 C 85 18 109/72 92 Laboratory Results Laboratory Results - last 24 hr 04/23/19 04/23/19 04/23/19 11:05 16:06 20:10 Sodium Potassium Chloride Carbon Dioxide Anion Gap BUN Creatinine Est Cr Clr Drug Dosing Est GFR ( Amer) Est GFR (Non-Af Amer) BUN/Creatinine Ratio Glucose POC Glucose 250 H 181 H 190 H Calcium Total Bilirubin Direct Bilirubin AST ALT Alkaline Phosphatase Total Protein Albumin Specimen Hemolysis 04/24/19 04/24/19 04/24/19 05:26 06:48 07:37 Sodium 134 L Potassium 4.0 Chloride 99 Carbon Dioxide 31 Anion Gap 4.0 BUN 22 H Creatinine 0.97 Est Cr Clr Drug Dosing 63.7 Est GFR ( Amer) 87.5 Est GFR (Non-Af Amer) 75.5 BUN/Creatinine Ratio 22.2 H Glucose 112 H POC Glucose 95 Calcium 8.5 Total Bilirubin 0.8 Direct Bilirubin AST 70 H ALT 203 H Alkaline Phosphatase 190 H Total Protein 6.9 Albumin 2.4 L Specimen Hemolysis 04/24/19 07:55 Sodium Potassium Chloride Carbon Dioxide Anion Gap BUN Creatinine Est Cr Clr Drug Dosing Est GFR ( Amer) Est GFR (Non-Af Amer) BUN/Creatinine Ratio Glucose POC Glucose Calcium Total Bilirubin Direct Bilirubin 0.4 H AST ALT Alkaline Phosphatase Total Protein Albumin Specimen Hemolysis
--- NOTE | 2019-04-24 12:24 | Hospitalist Progress Note ---
Date of Service April 24, 2019 Assessment & Plan (1) Acute non-ST elevation myocardial infarction (NSTEMI): NSTEMI H/O CAD S/P PCI Cardiac catheterization demonstrated multivessel disease with complete occlusion of RCA with [id number] collaterals, 95% stenosis OM1, 80 to 90% stenosis of distal LAD, complete occlusion of ostial first diagonal with collaterals. ECHO: Septal wall dyskinetic, global severe hypokinesis to akinesis, EF <20% S/P PCI--drug-eluting stent OM1 IV heparin discontinued Continue aspirin, Plavix, Coreg, lisinopril Statin held secondary to elevated LFTs LFTs trending towards normal Continue to hold statin for now Appreciate cardiology input Plan to continue carvedilol 12.5 mg twice daily, lisinopril 5 mg daily Plan to continue dual antiplatelet therapy for minimum 6 months, preferably 1 year Needs follow-up with cardiology upon discharge in 2 weeks (2) Cardiomyopathy: Chest x-ray showed cardiomegaly without pulmonary edema. Echo: EF <20% Likely Ischemic cardiomyopathy. Monitor volume status, daily weight, I's and O's IV diuretics transition to Lasix 40 mg p.o. daily Appreciate cardiology input (3) Lactic acidosis: Serum lactate at time of admission 4.0, repeat 04/20 = 1.8. No signs of sepsis/infection Lactic acidosis likely due to CHF /shock liver, metformin use (4) MERRILL (acute kidney injury): Resolved Monitor renal function (5) Abnormal liver function tests: Elevated LFT's likely due to congestion of liver secondary to CHF, statin therapy Negative BENJAMIN, hepatitis panel LFTs trending down GI consulted (6) Hypertension: BP stable continue current meds (7) Dyslipidemia: Hold atorvastatin due to elevated LFT's. Resume as able (8) Diabetes mellitus type 2 with complications: DM II On insulin 70/30, regular insulin, and metformin. Plan to discontinue Metformin due to low cardiac output + lactic acidosis. Hemoglobin A1c 8.5. Glycemic management per basal/bolus insulin protocol. Plan to discontinue metformin upon discharge (9) GERD (gastroesophageal reflux disease): Continue PPI. (10) Anemia: MCV 84. Iron 56, TIBC 341, transferrin 277, ferritin 73, folate 20, vitamin B12 1054. Patient reports rectal bleeding due to hemorrhoids. May need colonoscopy eventually (11) Thrombocytopenia: Resolved HIT screen negative. monitor (12) DVT prophylaxis: SCDs Heparin SQ (13) Discharge planning issues: Plan to discharge back to [facility] today Subjective Patient is seen and examined at bedside Feels much better today States dyspnea much improved No new complaints leg edema improved Denies any chest pain, dizziness, nausea, abdominal pain Assisted guards at bedside Review of Systems Review of Systems: All systems reviewed & are unremarkable except as noted in HPI & below Physical Exam Physical Exam: Physical Exam: Vitals signs as noted above General Appearance:Moderately built and nourished, no apparent distress Head: normocephalic, Atraumatic Eyes: normal inspection, EOMI Neck: supple, Trachea midline Respiratory/Chest: Normal breath sounds, normal basal crackles Cardiovascular: S1, S2, No murmur Abdomen/GI:Soft, Non tender, Bowel sounds present Extremities/Musculoskelatal:normal inspection, no edema Neurologic/Psych:AAOX3, grossly no focal neurological deficits Skin: normal color, warm Results & Data Vital Signs (Past 12 Hours) Vital Signs Temp Pulse Pulse Pulse Resp BP Pulse Ox 04/24/19 12:01 36.6 C 81 18 111/75 96 04/24/19 08:00 36.9 C 88 88 18 115/73 93 04/24/19 03:09 36.4 C L 89 18 128/70 99 Laboratory Results BMP 04/24/19 04/24/19 05:26 06:48 Sodium 134 L Potassium 4.0 Chloride 99 Carbon Dioxide 31 BUN 22 H Creatinine 0.97 Glucose 112 H Calcium 8.5 Liver Function 04/24/19 04/24/19 04/24/19 Range/Units 05:26 06:48 07:55 Total Bilirubin 0.8 (0.2-1) mg/dl Direct Bilirubin 0.4 H (0-0.2) mg/dl AST 70 H (15-37) U/L ALT 203 H (12-78) U/L Alkaline Phosphatase 190 H (45-117) U/L Albumin 2.4 L (3.4-5.0) gm/dl
--- NOTE | 2019-04-24 13:02 | Discharge Summary ---
Date of Service April 24, 2019 Admission HPI Per Admitting Provider History obtained from patient and records. Medical history significant for CAD status post stent (1997, 1999 [facility]), hypertension, hyperlipidemia, gout, DM 2 insulin requiring, GERD, past tobacco abuse. Patient experience achy left-sided chest pain with diaphoresis and shortness of breath to anginal attack around 7:45 PM. Compliant with medications. No cough symptoms. Legs a little more swollen than usual. 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 Left-sided throat discomfort without ear discomfort for a few days now. No fever, no chills. Currently pain-free at the emergency room. Medical History as above Surgical History : Splenectomy, hernia repair, appendectomy, jaw surgery, eye surgeries Family History : Diabetes Personal/Social history : Past tobacco abuse, no EtOH intake, jail inmate Admission Exam Per Admitting Provider GENERAL: Comfortable, pleasant, no respiratory distress, obese SKIN: Normal color, warm HEENT: Bespectacled, pink palpebral conjunctivae, no ptosis, dry buccal mucosa, minimal pharyngeal congestion NECK : Supple, short neck, no tenderness CHEST : CTA, no tenderness HEART : RRR, no obvious murmurs ABDOMEN: Some distention, nontender EXTREMITIES : Bilateral LE swelling, no LE tenderness, no other conspicuous d eformities noted NEUROLOGIC : Coherent, no facial asymmetry, no other gross focality Principal Diagnosis Acute non-ST elevation myocardial infarction Ischemic cardiomyopathy Lactic acidosis--resolved Acute kidney injury--resolved Transaminitis--improving Discharge Data Allergies Allergy/AdvReac Type Severity Reaction Status Date / Time Sulfa (Sulfonamide Allergy Mild Unknown Verified 04/18/19 10:56 Antibiotics) Penicillins Allergy Unknown . Verified 04/16/19 00:15 Consultations 04/15/19 23:08 ED Decision to Admit Stat 04/16/19 01:07 Consult Cardiology Routine 04/17/19 20:39 Consult Gastroenterology Routine Procedures Performed Operation Date: 04/16/19 12:00 Actual Procedures p Cath, Left with Cors and Vent - Negrito Lozano MD p Cineradiography w/Routine Exam - Negrito Lozano MD Operation Date: 04/21/19 13:00 Actual Procedures s Cineradiography w/Routine Exam - Negrito Lozano MD p Drug Eluting Stent SGl Vessel - Negrito Lozano MD CT ABD: 1. Cardiomegaly with fluid overload manifested by small bilateral pleural effusions, small volume of abdominal pelvic ascites, diffuse body wall and mesenteric edema. 2. Colonic diverticulosis without acute diverticulitis. 3. No bowel obstruction or bowel wall thickening. 4. Small to moderate right inguinal hernia. 5. Mild ectasia of the infrarenal abdominal aorta, 2.8 cm. 6. Additional findings as above. CXR: Cardiomegaly without acute process. ABD USD: 1. Fatty replacement of the liver. 2. Normal caliber bile ducts. 3. Trace perihepatic ascites. MRCP: 1. Radiographic evidence of fluid overload with body wall edema, trace ascites, and bilateral pleural effusions 2. Normal gallbladder 3. Normal common bile duct and pancreatic duct. No ductal dilatation. Cardiac Catheterization: Summary: 1. Successful PCI of high OM1 with single drug-eluting stent (2.25 x 28 mm Xience Debora; postdilated with 2.5 NC). 2. 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 Estes. Hemodynamics Rest Ao:: 125/76/101 Final Ao: 124/75/65 LV: 125/26 Recommendations Recommendations: PCI without planned CABG ECHO: Left ventricle is mildly dilated The septal wall is dyskinetic Otherwise there is moderate global severe hypokinesis to akinesis Left ventricular systolic function is severely reduced The quantitative left ventricular ejection fraction is =<20% Right ventricle is mildly dilated The right ventricular systolic function is moderately reduced The left atrium is moderately dilated There is moderate to severe mitral regurgitation Mitral regurgitation jet is centrally dilated Etiology of the mitral regurgitation appears to be due to cardiomyopathy with LV chamber enlargement and caudal tethering, with resultant mild coaptation of the mitral valve. There is moderate to severe tricuspid regurgitation. Mild pulmonary hypertension is present Dyspnea pulmonary artery systolic pressure= 45 mmHg There are no prior studies available for comparison. Ordered Studies 04/16/19 11:45 CL Cath Imgs for PACS use only Stat 04/17/19 20:38 US abdomen limited Routine 04/18/19 15:01 CT abd pelvis oral con only Routine 04/21/19 08:50 MR MRCP Routine 04/21/19 13:19 CL Cath Imgs for PACS use only Routine Hospital Course (1) Acute non-ST elevation myocardial infarction (NSTEMI): NSTEMI H/O CAD S/P PCI Cardiac catheterization demonstrated multivessel disease with complete occlusion of RCA with jaaf-pe-lbyiw collaterals, 95% stenosis OM1, 80 to 90% stenosis of distal LAD, complete occlusion of ostial first diagonal with collaterals. ECHO: Septal wall dyskinetic, global severe hypokinesis to akinesis, EF <20% S/P PCI--drug-eluting stent OM1 IV heparin discontinued Continue aspirin, Plavix, Coreg, lisinopril Statin held secondary to elevated LFTs LFTs trending towards normal Continue to hold statin for now Appreciate cardiology input Plan to continue carvedilol 12.5 mg twice daily, lisinopril 5 mg daily Plan to continue dual antiplatelet therapy for minimum 6 months, preferably 1 year Needs follow-up with cardiology upon discharge in 2 weeks (2) Cardiomyopathy: Chest x-ray showed cardiomegaly without pulmonary edema. Echo: EF <20% Likely Ischemic cardiomyopathy. Monitor volume status, daily weight, I's and O's IV diuretics transition to Lasix 40 mg p.o. daily Appreciate cardiology input (3) Lactic acidosis: Serum lactate at time of admission 4.0, repeat 04/20 = 1.8. No signs of sepsis/infection Lactic acidosis likely due to CHF /shock liver, metformin use (4) MERRILL (acute kidney injury): Resolved Monitor renal function (5) Abnormal liver function tests: Elevated LFT's likely due to congestion of liver secondary to CHF, statin therapy Negative BENJAMIN, hepatitis panel LFTs trending down GI consulted (6) Hypertension: BP stable continue current meds (7) Dyslipidemia: Hold atorvastatin due to elevated LFT's. Resume as able (8) Diabetes mellitus type 2 with complications: DM II On insulin 70/30, regular insulin, and metformin. Plan to discontinue Metformin due to low cardiac output + lactic acidosis. Hemoglobin A1c 8.5. Glycemic management per basal/bolus insulin protocol. Plan to discontinue metformin upon discharge (9) GERD (gastroesophageal reflux disease): Continue PPI. (10) Anemia: MCV 84. Iron 56, TIBC 341, transferrin 277, ferritin 73, folate 20, vitamin B12 1054. Patient reports rectal bleeding due to hemorrhoids. May need colonoscopy eventually (11) Thrombocytopenia: Resolved HIT screen negative. monitor (12) DVT prophylaxis: SCDs Heparin SQ (13) Discharge planning issues: Plan to discharge back to [facility] [place] today Total Time Total Time Spent Total Time Spent (In Minutes): 45 minutes Total Time Includes: Examination of the Patient, Discharge Planning, Medication Reconciliation, Communication With Other Providers and Other Discharge Plan Discharge Items [facility] Reason For Visit: [facility] Discharge Diagnosis: Acute non-ST elevation myocardial infarction Ischemic cardiomyopathy Lactic acidosis--resolved Acute kidney injury--resolved Transaminitis--improving Activity: Per Instructions section Exercise/Sports: Gradually increase as tolerated Non-emergency contact: Primary Care Provider and Income Tax Auditor Call non-emergency contact if: you have any medication questions, your symptoms worsen, your pain is not controlled, your pain is worsening, your pain is unusual for you, your pain is concerning for you, you have a fever, your wound has increased redness, your wound has increased drainage and your wound pain has increased Follow-up/Referrals: [place] [facility] [Primary Care Provider] - Diet: Carb Consistent or DM2 and Heart Healthy Ambulatory Orders: Comprehensive Metabolic Panel (Routine) Timeframe: 3 Days Location: Determined by Patient Ordered By: Geronimo White Attending Provider Instructions: [facility] with [facility] doctor at [facility] in 1 week Follow-up with your licensed reactor operator Dr. Haroldo Estes in 2 weeks Get Blood Test (complains of metabolic panel) on 04/28/2019 and follow up with your Physician with results Start taking atorvastatin 40 mg daily once your liver function normalizes. Continue to hold taking atorvastatin until blood test as recommended above. Metformin is discontinued secondary to low cardiac output and lactic acidosis. Discussed with the physician, regarding insulin therapy which needs to be adjusted based on your blood glucose levels. Your omeprazole is changed to Protonix to prevent interaction with clopidogrel. Seek immediate medical attention if your symptoms reoccur or worsen Call your Primary Care doctor if any of the following symptoms or problems start or get worse: * Shortness of breath or difficulty breathing * Wake up at night short of breath * Chest pain * Cough * Swelling of your hands, feet, or legs * More fatigued or tired with your normal activity * Palpitations - sudden fast heart beats WEIGHT * Weigh yourself every morning after using the bathroom. * Use the same scale. * Wear the same amount of clothing. * Write your weight down on a chart. * Call your Primary Care doctor if you gain more than 2-3 pounds in 1-2 days. MEDICATIONS * Use this discharge instruction sheet for medication instructions. * Take your medications at the time your doctor ordered. * Do not skip a dose of your medicines. * If you miss a dose of medicine, take it as soon as possible, but DO NOT DOUBLE A DOSE. * Read your medicine information when you get home. * Know all of the side effects of your medicine. If in doubt, ask your pharmacist * Call your Primary Care doctor's office if you have any side effects. * Be sure all of your doctors know what medicine and herbs you take (including cold, flu, and herbal medicine). Take the following with you to your follow-up doctor appointments: * Weight Chart * Medication List * List of questions Do not drink excessive alcohol, beer or wine. Home Care: * Take your medications exactly as directed. Don't skip doses. * Remember that recovery after a heart attack takes time. Plan to rest for at lease 4-8 weeks while you recover. Then return to normal activity when your doctor says it's okay. * Ask your doctor about joining a heart rehabilitation program. * Tell your doctor if you are feeling depressed. Feelings of sadness are common after a heart attack, but it is important that you speak to someone if you are feeling overwhelmed by these feelings. * If you are having chest pain, call 911 for an ambulance. Do NOT drive yourself to the hospital. * Ask your family members to learn CPR. * Learn to take your own blood pressure and pulse. Keep a record of your results. Ask your doctor when you should seek emergency medical attention. He or she will tell you which blood pressure reading is dangerous. Lifestyle Changes: * Maintain a healthy weight. Get help to lose any extra pounds. * Cut back on salt. * Limit canned, dried, packaged, and fast foods. * Don't add salt to your food. * Season foods with herbs instead of salt when you cook. * Break the smoking habit. Enroll in a stop-smoking program to improve your chances of success. * Limit fatty foods. * Ask your doctor about having your lipid levels checked regularly. * Build up your activity according to your doctor's recommendation. * Ask your doctor when it's okay to resume sexual activity. * Tell your doctor about any erectile dysfunction (ED) medication you are taking. Some ED medications are not safe if you take certain heart medications. * Try to manage stress. Follow Up: It is important for you to keep your follow up appointments with your medical provider. Pending Studies at Discharge: No Stand-Alone Forms: Call Back Authorization, My [facility] Skilled Items Patient informed of condition?: Yes Discharge Level of Care: Other Communicable Disease: No Discharge Prognosis: Improving Lines: None Urinary Catheter: No Medications and DC Order Prescriptions: New furosemide 40 mg Tablet 40 mg PO QAM 30 Days Qty: 30 RF: 1 carvedilol 12.5 mg Tablet 12.5 mg PO BID 30 Days Qty: 60 RF: 1 clopidogrel 75 mg Tablet 75 mg PO QAM 30 Days Qty: 30 RF: 1 lisinopril [Zestril] 5 mg Tablet 5 mg PO QAM 30 Days Qty: 30 RF: 1 pantoprazole [Protonix] 40 mg tablet,delayed release (DR/EC) 40 mg PO BID 30 Days Qty: 60 RF: 1 Continued nitroglycerin [Nitrostat] 0.4 mg Tablet, Sublingual 0.4 mg sublingual UD PRN (Reason: Chest Pain) RF: 0 duloxetine 60 mg Capsule,Delayed Release(Dr/Ec) 60 mg PO QAM RF: 0 alendronate 70 mg Tablet, Effervescent 70 mg PO WK RF: 0 aspirin 81 mg Tablet,Delayed Release (Dr/Ec) 81 mg PO QAM RF: 0 allopurinol 300 mg Tablet 150 mg PO QAM RF: 0 calcium carbonate-vitamin D3 [Calcium 600 + D(3)] 600 mg(1,500mg) -400 unit Tablet 1 tab PO QAM RF: 0 acetaminophen 325 mg Tablet 325 mg PO BID RF: 0 Hemorrhoidal Suppository 0.25 % Suppository 1 supp WA TID RF: 0 ranitidine HCl 150 mg Tablet 150 mg PO BID RF: 0 Humulin 70/30 U-100 Insulin 100 unit/mL (70-30) Suspension 20 unit SUBCUT QAM RF: 0 Humulin 70/30 U-100 Insulin 100 unit/mL (70-30) Suspension 28 unit SUBCUT QPM RF: 0 Humulin R Regular U-100 Insuln 100 unit/mL Solution 1 sliding scale dose SUBCUT BID RF: 0 Changed atorvastatin 20 mg Tablet 40 mg PO QAM Qty: 0 RF: 0 Discontinued metoprolol tartrate 100 mg Tablet 100 mg PO BID RF: 0 nitroglycerin [Nitro-Dur] 0.2 mg/hr Patch 24 Hour 1 patch TRANSDERMAL QAM RF: 0 enalapril maleate 20 mg Tablet 20 mg PO QAM RF: 0 metformin 1,000 mg Tablet 1,000 mg PO BID RF: 0 omeprazole 40 mg Capsule,Delayed Release(Dr/Ec) 40 mg PO BID RF: 0 triamterene-hydrochlorothiazid 37.5-25 mg Tablet 1 tab PO DAILY RF: 0 Discharge Orders: Discharge Order (Routine); Ordered 04/24/19 Ordered By: Geronimo Zhu Admission Data Admit Date/Time: 04/16/19 00:09 Attending Provider: Geronimo Zhu Admit Provider: Aaron Bates Primary Care Provider: [place] [facility] Other Providers: Aaron Bates ; Federico Lawson ; [place] Epstein Other Interventions: Discharge Summary Assessment (RN) Last Done: 04/24/19 13:16 DC Date/Time DO NOT enter until pt leaves facility: 04/24/19 14:43
[2019-04-25] MEDS ORDERED: FUROSEMIDE 40 MG TAB PO SCH (09:00)
== END 2019-04-24 14:43 | DRG 246 ==
LOC: ED 20:55 → 2S 04-16 00:09 → SUATTDRO 04-16 00:09 → 2S 04-16 00:44

== ENCOUNTER 2019-04-26 11:31 | Inpatient (IN) ==
[2019-04-26] MEDS ORDERED: MoRPHine SULFATE 4 MG/ML 1 ML CARP\\VIAL IV PRN (11:37)
[2019-04-26] MEDS ORDERED: ONDANSETRON INJ 2 MG/ML 2 ML VIAL IV STA (11:37)
[2019-04-26] MEDS ORDERED: SODIUM CHLORIDE 0.9% 500 ML IV SCH (11:45)
--- NOTE | 2019-04-26 11:53 | XRay Report ---
XR chest 1V portable CLINICAL HISTORY: Atypical chest pain COMPARISON STUDY: 04/22/2019 FINDINGS: The heart is borderline enlarged. There is asymmetric elevation of interstitium right great er than left. The findings likely represent pulmonary vascular congestion/fluid overload, although in terstitial inflammatory processes could appear similar.. There is no lobar consolidation. There are n o pleural effusions.[ IMPRESSION: Mild asymmetric elevation of the interstitium, likely secondary to mild pulmonary vascula r congestion/fluid overload. Clinical and radiographic follow-up is recommended Electronically signed by: Jesus Llamas M.D. 04/26/2019 11:51 AM
--- NOTE | 2019-04-26 12:04 | Emergency Department Note ---
Entered by Susan Julio acting as a scribe for Khoa Parnell DO History of Present Illness General Chief complaint: Chest Pain Stated complaint: chest pain Time Seen by Provider: 04/26/19 11:34 Source: patient History of Present Illness Onset (ago): hour(s) (today) Location: chest Radiation: other (left arm) Pain Consistency: + other (sudden) Current Pain Intensity: 7 Quality: + other (chest pain) Exacerbated By: + movement Associated symptoms: + chest pain and + shortness of breath Treatments prior to arrival: aspirin and other (Nitrogylcerin) The patient is a 74-year-old male who presented to the emergency department for an evaluation of sudden chest pain. The patient is a prisoner and went to the [facility] today for chest pain. He was given aspirin and nitroglycerin prior to arrival. His pain was only mildly improved. Additional history was obtained from the prehospital personnel. The patient was given further nitroglycerin prior to arrival. Upon arrival in the emergency department he rates his pain between a 7-8 out of 10. The patient states the pain is under his left breast. He was recently seen in our facility for similar complaints where he had a non- ST segment elevation VT. He had a cardiac catheterization. He did have a stent placed. The patient states that he thinks he has been compliant with his medications but there was some difficulty getting some of his medications so he is unsure if he is started the Plavix. The patient states the pain is sometimes worsened with deep inspiration. The pain is constant. The pain does not radiate to his back but he states he does have some discomfort in his left arm. He does complain of shortness of breath. He states the pain was somewhat wo rsened with exertion. Home Medications Home Medications Medication Instructions Recorded Confirmed Type alendronate 70 mg PO SA 02/02/19 04/26/19 History allopurinol 150 mg PO QAM 02/02/19 04/26/19 History aspirin 81 mg PO QAM 02/02/19 04/26/19 History calcium carbonate-vitamin D3 1 tab PO QAM 02/02/19 04/26/19 History [Calcium 600 + D(3)] duloxetine 60 mg PO QAM 02/02/19 04/26/19 History nitroglycerin [Nitrostat] 0.4 mg SUBLINGUAL UD PRN 02/02/19 04/26/19 History acetaminophen 325 mg PO BID 04/15/19 04/26/19 History Hemorrhoidal Suppository 1 supp GA TID 04/16/19 04/26/19 History Humulin 70/30 U-100 Insulin 20 unit SUBCUT QAM 04/16/19 04/26/19 History Humulin 70/30 U-100 Insulin 28 unit SUBCUT QPM 04/16/19 04/26/19 History Humulin R Regular U-100 Insuln 1 sliding scale dose SUBCUT BID 04/16/19 04/26/19 History ranitidine HCl 150 mg PO BID 04/16/19 04/26/19 History atorvastatin 40 mg PO QAM #0 tab 04/24/19 04/26/19 Rx carvedilol 12.5 mg PO BID 30 Days #60 tab 04/24/19 04/26/19 Rx clopidogrel 75 mg PO QAM 30 Days #30 tab 04/24/19 04/26/19 Rx furosemide 40 mg PO QAM 30 Days #30 tab 04/24/19 04/26/19 Rx lisinopril [Zestril] 5 mg PO QAM 30 Days #30 tab 04/24/19 04/26/19 Rx pantoprazole [Protonix] 40 mg PO BID 30 Days #60 tab 04/24/19 04/26/19 Rx Allergies Allergy/AdvReac Type Severity Reaction Status Date / Time Sulfa (Sulfonamide Allergy Mild Unknown Verified 04/18/19 10:56 Antibiotics) Penicillins Allergy Unknown . Verified 04/26/19 11:49 Past Med/Surg History Medical History Gout (Chronic) Diverticulitis (Resolved) Colon polyps (Chronic) GERD (gastroesophageal reflux disease) (Chronic) Diabetes mellitus type 2 with complications (Chronic) Dyslipidemia (Chronic) Hypertension (Chronic) Coronary artery disease (Chronic) Cardiomyopathy (Chronic) Anemia Surgical History History of heart artery stent (Chronic) Status post appendectomy (Chronic) Status post splenectomy (Chronic) Family History Other Diabetes Social History Preferred Language: Japanese Visual Impairment: No Limitations 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: Normal 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 and A total of 10 systems reviewed and were otherwise negative Physical Exam Vital Signs Vital Signs - 24 hr 04/26/19 11:45 04/26/19 11:50 04/26/19 12:11 Temperature 36.4 C L Temperature Source Oral Sepsis Recent Fever Within 48 Hours No Sepsis New/Unexplained Change in Mental Status No Sepsis Action Taken by Nursing No Action Required Pulse Rate 84 Pulse Rate [Apical] 85 Pulse Rhythm Regular Pulse Rhythm [Apical] Regular Pulse Strength Normal Pulse Strength [Apical] Normal Respiratory Rate 20 18 Respiratory Effort / Characteristics Non-Labored Non-Labored Respiratory Depth Normal Normal Blood Pressure 128/79 Blood Pressure [Left Arm] 111/84 Blood Pressure Mean 95 Blood Pressure Mean [Left Arm] 93 Blood Pressure Position Lying Blood Pressure Position [Left Arm] Sitting Pulse Oximetry 98 98 95 Oxygen Delivery Method Room Air Room Air Room Air 04/26/19 13:20 04/26/19 14:17 Temperature Temperature Source Sepsis Recent Fever Within 48 Hours Sepsis New/Unexplained Change in Mental Status Sepsis Action Taken by Nursing Pulse Rate Pulse Rate [Apical] 91 H 90 Pulse Rhythm Pulse Rhythm [Apical] Regular Pulse Strength Pulse Strength [Apical] Normal Respiratory Rate 20 Respiratory Effort / Characteristics Respiratory Depth Normal Normal Blood Pressure Blood Pressure [Left Arm] 103/82 108/78 Blood Pressure Mean Blood Pressure Mean [Left Arm] 89 88 Blood Pressure Position Blood Pressure Position [Left Arm] Lying Pulse Oximetry 96 98 Oxygen Delivery Method Room Air Room Air GENERAL: Patient is awake, alert, and in no acute distress.Patient is resting comfortably and showing no signs of anxiety EYES: The conjunctivae are clear. The pupils are round and reactive. EARS, NOSE, MOUTH AND THROAT: The nose is without any evidence of any deformity. Mucous membranes are moist.Tongue is midline NECK: The neck is nontender and supple. RESPIRATORY: Normal respiratory effort is noted. There is no evidence of wheezing rhonchi or rales to auscultation. CARDIOVASCULAR: Regular rate and rhythm noted. There no murmurs rubs or gallops normal S1 normal S2 GASTROINTESTINAL: The abdomen is soft. Bowel sounds are present in all quadrants. Abdomen is nontender. MUSCULOSKELETAL/EXTREMITIES: Pulses were symmetric in both upper extremities. There is no evidence of gross deformity. Full range of motion is noted in the hips and shoulders. SKIN: Ecchymosis in the right forearm consistent with recent cardiac catheterization. There is no obvious evidence of any rash. There are no pet echiae, pallor or cyanosis noted. NEUROLOGIC: Patient is awake alert and oriented x3. Course 1147: EMR reviewed. Previous NSTEMI occurring 9 days ago and was seen by Dr. Lozano Wheat Washer. Right wrist approach. Successful PCI of hig h OM1 stent. 1146: The patient was evaluated in room C8, and a complete history and physical examination were performed. 1304: I discussed the patients case with Kennedi Ortega PA-C. Dr. [facility]. Administered Medications Insulin Aspart (Novolog Flexpen) 0 units SC ACHS NICHOLAS Stop: 05/26/19 16:29 Last Admin: 04/26/19 17:17 Dose: 3 units Documented by: [id number] Cosigned by: [id number] Nitroglycerin (Nitro-Bid 2%) 0.5 inch EXT Q6H NICHOLAS Stop: 05/26/19 15:59 Last Admin: 04/26/19 17:11 Dose: 0.5 inch Documented by: [id number] Discontinued Medications Sodium Chloride (Nss) 500 mls @ 999 mls/hr IV .Q31M NICHOLAS Stop: 04/26/19 12:15 Last Infusion: 04/26/19 13:37 Dose: 0 mls/hr Documented by: [id number] Admin: 04/26/19 12:30 Dose: 999 mls/hr Documented by: [id number] Morphine Sulfate (Morphine Sulfate) 4 mg IV Q15M PRN PRN Reason: Pain Stop: 05/10/19 11:36 Last Admin: 04/26/19 12:10 Dose: 4 mg Documented by: [id number] Ondansetron HCl (Zofran) 4 mg IV NOW STA Stop: 04/26/19 11:38 Last Admin: 04/26/19 12:35 Dose: 4 mg Documented by: [id number] Medical Decision Making Differential Diagnosis Differential diagnoses includes but is not limited to acute coronary syndrome, myocardial infarction, pericarditis, pulmonary embolus, aortic dissection, pneumonia, pneumothorax, musculoskeletal, shingles, esophageal. Medical Records Attestation: I reviewed the patient's medical records. Home Medications Current Medication List: was personally reviewed by me Laboratory Data Attestation: I reviewed the patient's lab results. Result diagrams: 04/26/19 12:13 04/26/19 12:13 Lab Results 04/26/19 04/26/19 04/26/19 Range/Units 12:13 12:13 12:13 WBC 4.56 L (4.8-10.8) K/uL RBC 4.82 (4.7-6.1) M/uL Hgb 12.6 L (14.0-18.0) g/dL Hct 39.9 L (42-52) % MCV 82.8 (80-100) fL MCH 26.1 (25-34) pg MCHC 31.6 L (32-36) g/dL RDW Std Deviation 51.9 H (36.4-46.3) fL RDW Coeff of Maria Guadalupe 17.2 H (11.5-14.5) % Plt Count 203 (130-400) K/uL MPV 9.6 (7.4-10.4) fL Immature Gran % (Auto) 0.2 % Neut % (Auto) 66.9 % Lymph % (Auto) 22.8 % [place] % (Auto) 8.6 % Eos % (Auto) 1.3 % Baso % (Auto) 0.2 % Immature Gran # (Auto) 0.01 (0.00-0.02) K/uL Neut # (Auto) 3.05 (1.4-6.5) K/uL Lymph # (Auto) 1.04 L (1.2-3.4) K/uL [place] # (Auto) 0.39 (0.11-0.59) K/uL Eos # (Auto) 0.06 (0-0.5) K/uL Baso # (Auto) 0.01 (0-0.2) K/uL PT 10.5 (9.0-12.0) Seconds INR 1.0 (0.9-1.1) APTT 23.2 (21.0-31.0) Seconds PTT Ratio 0.9 Sodium 140 (136-145) mmol/L Potassium 3.8 (3.5-5.1) mmol/L Chloride 107 (98-107) mmol/L Carbon Dioxide 29 (21-32) mmol/L Anion Gap 4.0 (3-11) BUN 19 H (7-18) mg/dl Creatinine 0.82 (0.6-1.4) mg/dl Est Cr Clr Drug Dosing 81.6 ml/min Est GFR ( Amer) 99.6 Est GFR (Non-Af Amer) 85.9 BUN/Creatinine Ratio 22.7 H (10-20) Glucose 89 (70-99) mg/dl Calcium 8.8 (8.5-10.1) mg/dl Total Bilirubin 0.5 (0.2-1) mg/dl AST 48 H (15-37) U/L ALT 128 H (12-78) U/L Alkaline Phosphatase 189 H (45-117) U/L Total Creatine Kinase 82 (39-308) U/L CK-MB (CK-2) 5.2 H (0.5-3.6) ng/ml CK/CKMB % Calc 6.3 H (0-3.0) Troponin I 0.222 H* (0-0.045) ng/ml Total Protein 7.3 (6.4-8.2) gm/dl Albumin 2.7 L (3.4-5.0) gm/dl Globulin 4.6 H (2.5-4.0) gm/dl Albumin/Globulin Ratio 0.6 L (0.9-2) Lipase 92 (73-393) U/L Imaging Data Radiologist's Impression: Radiology results as stated below per my review and the radiologist's interpretation: XR chest 1V portable CLINICAL HISTORY: Atypical chest pain COMPARISON STUDY: 04/22/2019 FINDINGS: The heart is borderline enlarged. There is asymmetric elevation of interstitium right greater than left. The findings likely represent pulmonary vascular congestion/fluid overload, although interstitial inflammatory processes could appear similar.. There is no lobar consolidation. There are no pleural effusions.[ IMPRESSION: Mild asymmetric elevation of the interstitium, likely secondary to mild pulmonary vascular congestion/fluid overload. Clinical and radiographic follow-up is recommended Electronically signed by: Jesus Llamas M.D. 04/26/2019 11:51 AM ECG Data Attestation: I personally reviewed and interpreted this ECG as follows: Indication: + chest pain Rate (beats per minute): 82 Rhythm: + normal sinus ECG Findings: + Other (Anterior and low lateral ST depression. Early transition note. ); no PACs and no PVCs Comparison ECG Date: from (04/21/19) Change: the following changes noted (ST segment abnormalities are new 04/21/19.) Blood Pressure Blood Pressure Findings: Elevated blood pressure Blood Pressure Disposition: further management by hospitalist YECENIA Narrative The patient is a 74-year-old male who presented to the emergency department for an evaluation of chest pain. The patient is 10 days status post cardiac catheterization. The patient presented at the end of last month for a non-ST segment elevation VT. At that time he had a cardiac catheterization which resulted in a stent. The patient feels as though he was compliant with his medications but admits there was some difficulty getting some of his medications at the present. The patient was treated with aspirin and nitroglycerin prior to arrival. He was also treated with morphine in the emergency department. He was reevaluated multiple times. I discussed the patient's laboratory and radiographic studies with him. I discussed the limitations of the emergency department work-up for chest pain with him. His troponin continues to be elevated however it is lower than his discharge troponin. His CPK is also not elevated. I discussed the patient's case with the on-call [facility] hospitalist group. They have agreed to evaluate the patient in the emergency department for further management and disposition. The patient was significantly improved on final reevaluation. Impression & Plan Chest pain, Abnormal ECG, Elevated troponin Discharge Plan Visit Data *Final* Discharge Date/Time: 04/26/19 15:53 Chief Complaint: Chest Pain Stated Complaint: chest pain ED Provider: Khoa Parnell Discharge Problem: Chest pain, Abnormal ECG, Elevated troponin Patient Disposition: Admitted As Inpatient Discharge Instructions Interventions: ED Discharge Assessment Last Done: 04/26/19 15:53 Discharge Problem: Chest pain Qualifiers: Chest pain type: unspecified Qualified Code(s): R07.9 - Chest pain, unspecified The scribe's documentation has been prepared under my direction and personally reviewed by me in its entirety. I confirm that the note above accurately reflects all work, treatment, procedures, and medical decision making performed by me.
[2019-04-26 12:22] LABS: Basophils # (auto) 0.01 K/uL (0-0.2); Basophils % (auto) 0.2 %; Eosinophils # (auto) 0.06 K/uL (0-0.5); Eosinophils % (auto) 1.3 %; Hematocrit (blood only) 39.9 % (42-52); Hemoglobin 12.6 g/dL (14.0-18.0); Immature Granulocytes # (auto) 0.01 K/uL (0.00-0.02); Immature Granulocytes % (auto) 0.2 %; Lymphocytes # (auto) 1.04 K/uL (1.2-3.4); Lymphocytes % (auto) 22.8 %; Mean Corpuscular Hemoglobin 26.1 pg (25-34); Mean Corpuscular Hgb Conc 31.6 g/dL (32-36); Mean Corpuscular Volume 82.8 fL (80-100); Mean Platelet Volume 9.6 fL (7.4-10.4); Monocytes # (auto) 0.39 K/uL (0.11-0.59); Monocytes % (auto) 8.6 %; Neutrophils # (auto) 3.05 K/uL (1.4-6.5); Neutrophils % (auto) 66.9 %; Platelet Count 203 K/uL (130-400); RDW Coefficient of Variation 17.2 % (11.5-14.5); RDW Standard Deviation 51.9 fL (36.4-46.3); Red Blood Count 4.82 M/uL (4.7-6.1); White Blood Count 4.56 K/uL (4.8-10.8)
[2019-04-26 12:35] LABS: Partial Thromboplastin Ratio 0.9; Partial Thromboplastin Time 23.2 Seconds (21.0-31.0); Prothrombin Time 10.5 Seconds (9.0-12.0)
[2019-04-26 12:38] LABS: Albumin Level 2.7 gm/dl (3.4-5.0); BUN Creatinine Ratio 22.7 (10-20); Calcium 8.8 mg/dl (8.5-10.1); Creatinine Clr Calc Pharmacy 81.6 ml/min; Est GFR (African American) 99.6; Est GFR (Non-African American) 85.9; Potassium 3.8 mmol/L (3.5-5.1)
[2019-04-26 12:46] LABS: Albumin Globulin Ratio 0.6 (0.9-2); Bilirubin,Total 0.5 mg/dl (0.2-1); Creatine Kinase MB 5.2 ng/ml (0.5-3.6); Globulin 4.6 gm/dl (2.5-4.0); Total Protein 7.3 gm/dl (6.4-8.2); Troponin I 0.222 ng/ml (0-0.045)
--- NOTE | 2019-04-26 14:21 | History & Physical Report ---
Date of Service April 26, 2019 Assessment & Plan (1) Chest pain: Pt is 74 y/o M with PMH HTN, dyslipidemia, elevated liver functions, DM II, GERD, gout, CAD s/p stent to OM1 on 04/16/19, cardiomyopathy resented to ER from [facility] with c/o CP this morning started when unpacking a back. Pain to left anterior chest described as stabbing and rated 10/10 on pain scale. Also reports some left arm " funny feeling". Denies any associated SOB, diaphoresis, dizziness, N/V. Recent hospitalization 04/15/2019-04/24/2019 for an STEMI, cardiomyopathy, fluid overload. During that admission, received stent to OM1, was diuresed. 04/16/19 Echo: The septal wall is dyskinetic. Moderate global severe hypokinesis to akinesis, LV EF <20%, moderate to severe mitral regurgitation, moderate to severe tricuspid regurgitation, mild pulmonary hypertension Today In ER pt afebrile, P: 84, R: 20, BP: 128/79, 98% on RA. No leukocytosis. H/H: 12.6/39/9, Plt: 203, BUN: 19, Cr: 0.8, GFR: 85, Troponin: 0.2 (was 0.5 on 04/18/19). EKG sinus rhythm, nonspecific ST changes, ST depression anterior CP DDX: ACS, less likely stent restenosis, non-cardiac etiology -Pt reported to received ASA and nitro SL x 3 at [facility] and 1 spray nitro by EMS with pain from 1010 down to 7/10 -In ER pt given 500ml NSS, Morphine 4mg, zofran -Will trend troponin -Repeat EKG in am -Continue aspirin, atorvastatin, carvedilol, Plavix -Nitropaste -Cardiology consult (2) Cardiomyopathy: 04/16/19 Echo: The septal wall is dyskinetic. Moderate global severe hypokinesis to akinesis, LV EF <20%, moderate to severe mitral regurgitation, moderate to severe tricuspid regurgitation, mild pulmonary hypertension CXR read as possible fluid overload -Currently pt appears euvolemic -Continue oral Lasix -Monitor I's & O's (3) Hypertension: Stable -Continue carvedilol, lisinopril (4) Dyslipidemia: -Continue atorvastatin (5) Diabetes mellitus type 2 with complications: A1c: 8.5 on 04/15/19 -Hold insulin 70/30 -Basal bolus insulin per sliding scale per protocol (6) GERD (gastroesophageal reflux disease): -Continue PPI, H2 iron DVT Prophylaxis -Heparin SQ Full Code as per discussion with pt Follows with Dr Renae at [facility] for routine care Pt was seen and care coordinated with Dr Tabor. See addendum History of Present Illness Chief Complaint: CP Primary Care Provider: [facility] Pt is 74 y/o M with PMH HTN, dyslipidemia, elevated liver functions, DM II, GERD, gout, CAD s/p stent to OM1 on 04/16/19, cardiomyopathy resented to ER from [facility] with c/o CP today. Patient with recent hospitalization 04/15/2019- 04/24/2019 for an STEMI, cardiomyopathy, fluid overload. Patient received stent to OM1. He was diuresed during that hospital admission. During that admission echo with EF<20%. Patient states was doing well past 2 days until this morning. Patient states this morning he was unpacking a bag when he developed left a nterior chest pain which he describes as stabbing and rates a 10 out of 10 on pain scale. Also reports some left arm " funny feeling". Denies any shortness of breath, dizziness, diaphoresis, nausea, vomiting. He was given aspirin, 3 sublingual nitroglycerin with minimal improvement. Patient reports was given 1 spray nitro by EMS with some improvement of pain. Patient given morphine in ER and currently rates pain 7 out of 10 on pain scale and and currently describes as dull pain. Reports pain is worse with palpation. Denies pleuritic chest pain. Patient states this pain feels different than his and STEMI as today he has not had any shortness of breath, diaphoresis. Pt states no increased LE edema since discharge on 04/24/19. He states he has been taking his medications that he has been given at [facility]. Denies fever/chills, diarrhea, constipation, BACA, dizziness, syncope, vision changes, neck pain, orthopnea, palpitations, cough, sore throat, choking, otalgia, rhinorrhea, abdominal pain, paresthesias, weakness, extremity weakness, rashes, urinary symptoms. Allergies Allergy/AdvReac Type Severity Reaction Status Date / Time Sulfa (Sulfonamide Allergy Mild Unknown Verified 04/18/19 10:56 Antibiotics) Penicillins Allergy Unknown . Verified 04/26/19 11:49 Home Medications Home Medications Medication Instructions Recorded Confirmed Type alendronate 70 mg PO SA 02/02/19 04/26/19 History allopurinol 150 mg PO QAM 02/02/19 04/26/19 History aspirin 81 mg PO QAM 02/02/19 04/26/19 History calcium carbonate-vitamin D3 1 tab PO QAM 02/02/19 04/26/19 History [Calcium 600 + D(3)] duloxetine 60 mg PO QAM 02/02/19 04/26/19 History nitroglycerin [Nitrostat] 0.4 mg SUBLINGUAL UD PRN 02/02/19 04/26/19 History acetaminophen 325 mg PO BID 04/15/19 04/26/19 History Hemorrhoidal Suppository 1 supp MD TID 04/16/19 04/26/19 History Humulin 70/30 U-100 Insulin 20 unit SUBCUT QAM 04/16/19 04/26/19 History Humulin 70/30 U-100 Insulin 28 unit SUBCUT QPM 04/16/19 04/26/19 History Humulin R Regular U-100 Insuln 1 sliding scale dose SUBCUT BID 04/16/19 04/26/19 History ranitidine HCl 150 mg PO BID 04/16/19 04/26/19 History atorvastatin 40 mg PO QAM #0 tab 04/24/19 04/26/19 Rx carvedilol 12.5 mg PO BID 30 Days #60 tab 04/24/19 04/26/19 Rx clopidogrel 75 mg PO QAM 30 Days #30 tab 04/24/19 04/26/19 Rx furosemide 40 mg PO QAM 30 Days #30 tab 04/24/19 04/26/19 Rx lisinopril [Zestril] 5 mg PO QAM 30 Days #30 tab 04/24/19 04/26/19 Rx pantoprazole [Protonix] 40 mg PO BID 30 Days #60 tab 04/24/19 04/26/19 Rx Past Med/Surg History Medical History Gout (Chronic) Diverticulitis (Resolved) Colon polyps (Chronic) GERD (gastroesophageal reflux disease) (Chronic) Diabetes mellitus type 2 with complications (Chronic) Dyslipidemia (Chronic) Hypertension (Chronic) Coronary artery disease (Chronic) Cardiomyopathy (Chronic) Anemia Surgical History History of heart artery stent (Chronic) Status post appendectomy (Chronic) Status post splenectomy (Chronic) Family History Other Diabetes Social History Preferred Language: Andorran Visual Impairment: No Limitations 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: Normal 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 Beliefs That Will Affect Care: Cultural Cultural Beliefs: no pork Current Living Situation: Other Current Living Situation Comment: correctional facility Other Information That Helps Us Care for You: No Feels Safe at Home: Yes Safety Concerns: Feels Safe At This Time Smoking Status: Former smoker Tobacco Type: cigarettes ; Hx Alcohol Use: No Hx Substance Use: No Review of Systems Review of Systems: All systems reviewed & are unremarkable except as noted in HPI & below Physical Exam Physical Exam: General: no acute distress, WDWN Head: normocephalic, atraumatic Eyes: PERRL, conjunctiva non-injected, anicteric ENT: normal inspection external ears, nose, mucous membranes moist Neck: supple, trachea midline Lungs: clear, no respiratory distress, no wheezing/rhonchi/rales CV: RRR, no murmur, no JVD, no pretibial edema Chest: no rashes noted. +tenderness to palpation left anterior chest wall over left breast, no crepitus Abd: normal BS, soft, non-tender Ext: no cyanosis, no calf tenderness Neuro: A&O x 3, no focal deficits noted, normal affect Skin: warm, dry Results & Data Vital Signs (Past 12 Hours) Vital Signs Temp Pulse Pulse Resp BP BP Pulse Ox 04/26/19 14:17 90 20 108/78 98 04/26/19 13:20 91 H 103/82 96 04/26/19 12:11 85 18 111/84 95 04/26/19 11:50 98 04/26/19 11:45 36.4 C L 84 20 128/79 98 Laboratory Results Short CBC 04/26/19 Range/Units 12:13 WBC 4.56 L (4.8-10.8) K/uL Hgb 12.6 L (14.0-18.0) g/dL Hct 39.9 L (42-52) % Plt Count 203 (130-400) K/uL BMP 04/26/19 12:13 Sodium 140 Potassium 3.8 Chloride 107 Carbon Dioxide 29 BUN 19 H Creatinine 0.82 Glucose 89 Calcium 8.8 Cardiac Enzymes 04/26/19 Range/Units 12:13 Total Creatine Kinase 82 (39-308) U/L CK-MB (CK-2) 5.2 H (0.5-3.6) ng/ml Troponin I 0.222 H* (0-0.045) ng/ml Liver Function 04/26/19 Range/Units 12:13 Total Bilirubin 0.5 (0.2-1) mg/dl AST 48 H (15-37) U/L ALT 128 H (12-78) U/L Alkaline Phosphatase 189 H (45-117) U/L Albumin 2.7 L (3.4-5.0) gm/dl Diagnostic Findings CXR: IMPRESSION: Mild asymmetric elevation of the interstitium, likely secondary to mild pulmonary vascular congestion/fluid overload. Clinical and radiographic follow-up is recommended ECG Rate (beats per minute): 82 Rhythm: sinus rhythm Findings: + nonspecific-ST abn and + ST depression (Anterior) Code Status & VTE Plan VTE Prophylaxis Plan VTE Prophylaxis will be ordered: Yes Supervising Physician Co-Signing Physician Notes Attending Addendum: care coordinated with MORIS Ann please refer to her notes for full details, I agree with her notes patient seen and examined, records reviewed by myself as well on exam, patient seen resting, not in distress states his chest pain is 5/10, no nausea/dizziness/dyspnea no other symptoms re-assessed at around 900pm, comfortable, resting, not in distress states chest pain feels better, around 3/10 no nausea/dyspnea/palpitations/dizziness no other symptoms VS noted and reviewed oriented x3, not in distress, speaks in sentences with no effort nor accessory muscle use normal rate, regular rhythm, no murmurs clear breath sounds bilaterally non distended, soft, nontender no bipedal edema, erythema, warmth no neuro deficits Hg 12.6 Crea 0.82 Trop 6.04 repeat EKG: no signs of ST elevation or acute infarct ASSESSMENT AND PLAN CHEST PAIN, RECENT NSTEMI WITH STENT PLACEMENT TO THE OM discussed with Dr. Lawson, chest pain and elevated trop likely representing demand ischemia from CAD goal is to reduce the HR to 60s-70s tonight will d/c Carvedilol and add Metoprolol tartrate 25mg po PO BID to slow down hear t rate 60s-70s however, patient already received evening dose of Carvedilol 12.5mg -and BP 98/66, thus Metoprolol tartrate 12.5mg PO stat dose ordered re-assess at 12midnight, if HR still not at goal 60s-70s, give additional Metoprolol tartrate 12.5-25mg as blood pressure allows and repeat EKG Heparin drip started continue ASA, Plavix, Statin signed out to Dr. Bates CARDIOMYOPATHY euvolemic continue Lasix 40mg PO daily other diagnoses and plan of care as per MORIS Tabor MD (1) Chest pain Chest pain type: unspecified Qualified Code(s): R07.9 - Chest pain, unspecified
[2019-04-26] MEDS ORDERED: ACETAMINOPHEN 325 MG TAB PO PRN (16:22)
[2019-04-26] MEDS ORDERED: GLUCOSE 40% GEL 15 GM TUBE PO PRN (16:22)
[2019-04-26] MEDS ORDERED: TRAMADOL HCL 50 MG TABLET PO PRN (16:22)
[2019-04-26] MEDS ORDERED: DEXTROSE 50% 50 ML SYRINGE IV PRN (16:22)
[2019-04-26] MEDS ORDERED: CARBOHYDRATES FOR HYPOGLYCEMIA PO PRN (16:22)
[2019-04-26] MEDS ORDERED: GLUCOSE 10 TABS/TUBE PO PRN (16:22)
[2019-04-26] MEDS ORDERED: GLUCAGON FOR INJ 1 MG VIAL SQ PRN (16:22)
[2019-04-26] MEDS: NITROGLYCERIN 2% OINTMENT 30GM TUBE EXT SCH ×2 (17:11→21:14)
[2019-04-26] MEDS: INSULIN ASPART 100 UNITS/ML 3 ML PEN SC SCH ×2 (17:17→20:47)
[2019-04-26] MEDS: PANTOprazole 40 MG TAB PO SCH (20:38)
[2019-04-26] MEDS ORDERED: METOPROLOL TARTRATE 1 MG/ML VIAL IV STA (20:44)
[2019-04-26] MEDS ORDERED: carvediloL 12.5 MG TAB PO SCH (21:00)
[2019-04-26] MEDS ORDERED: Heparin IV Standard *NO* Bolus IV SCH (21:15)
[2019-04-26] MEDS: HEPARIN SODIUM/DEXTROSE 25,000 UNITS/500 ML BAG IV SCH (21:23)
[2019-04-26] MEDS ORDERED: METOPROLOL TARTRATE 25 MG TAB PO STA (21:27)
[2019-04-26] MEDS ORDERED: METOPROLOL TARTRATE 25 MG TAB PO SCH (21:30)
[2019-04-26] MEDS ORDERED: PNEUMOCOCCAL ADMINISTRATION CHARGE ONE (22:00)
[2019-04-26] MEDS ORDERED: PNEUMOCOCCAL POLYSACCHARIDES 25 MCG/0.5 ML VIAL/SYR IM ONE (22:00)
[2019-04-26] MEDS ORDERED: HEPARIN SOD 5,000 UNIT/0.5 ML VIAL SQ SCH (22:00)
[2019-04-26 22:44] LABS: BUN Creatinine Ratio 24.8 (10-20); Calcium 8.9 mg/dl (8.5-10.1); Creatinine Clr Calc Pharmacy 72.8 ml/min; Est GFR (African American) 93.3; Est GFR (Non-African American) 80.5; Magnesium 2.3 mg/dl (1.8-2.4); Potassium 4.7 mmol/L (3.5-5.1)
[2019-04-26] MEDS ORDERED: ALBUMIN 25% 50 ML IV ONE (23:25)
--- NOTE | 2019-04-27 01:36 | Communication Note ---
Date of Service: April 27, 2019 Made aware by RN of progressive troponin elevation from admission. 0.22 -> 6.04 -> 21 AP ACS Change to full admission TTE in a.m. PCU transfer for closer monitoring Will relay to AM provider.
[2019-04-27] MEDS ORDERED: METOPROLOL TARTRATE 25 MG TAB PO STA (02:35)
[2019-04-27 04:08] LABS: Hemoglobin 13.7 g/dL (14.0-18.0); Mean Corpuscular Hgb Conc 32.6 g/dL (32-36); Mean Corpuscular Volume 82.7 fL (80-100); Mean Platelet Volume 9.8 fL (7.4-10.4); Platelet Count 212 K/uL (130-400); RDW Coefficient of Variation 17.2 % (11.5-14.5); RDW Standard Deviation 51.8 fL (36.4-46.3); Red Blood Count 5.08 M/uL (4.7-6.1); White Blood Count 4.74 K/uL (4.8-10.8)
[2019-04-27 04:29] LABS: Partial Thromboplastin Ratio 3.7
[2019-04-27 04:33] LABS: BUN Creatinine Ratio 24.4 (10-20); Calcium 9.2 mg/dl (8.5-10.1); Creatinine Clr Calc Pharmacy 68.3 ml/min; Est GFR (African American) 86.5; Est GFR (Non-African American) 74.6; Potassium 4.6 mmol/L (3.5-5.1)
[2019-04-27 05:05] LABS: Partial Thromboplastin Time 101.5 Seconds (21.0-31.0)
[2019-04-27] MEDS: FUROSEMIDE 40 MG TAB PO SCH (07:57)
[2019-04-27] MEDS: PANTOprazole 40 MG TAB PO SCH ×2 (07:57→21:50)
[2019-04-27] MEDS: ALLOPURINOL 300 MG TAB PO SCH (07:58)
[2019-04-27] MEDS: CALCIUM 600MG + VIT D 400 IU TAB PO SCH (07:58)
[2019-04-27] MEDS: DULOXETINE HCL 60 MG CAP PO SCH (07:58)
[2019-04-27] MEDS: ASPIRIN 81 MG ECTAB PO SCH (07:59)
[2019-04-27] MEDS: CLOPIDOGREL BISULFATE 75 MG TAB PO SCH (07:59)
[2019-04-27] MEDS: ATORVASTATIN 40 MG TAB PO SCH (07:59)
[2019-04-27] MEDS ORDERED: METOPROLOL TARTRATE 50 MG TAB PO SCH (08:00)
[2019-04-27] MEDS: INSULIN GLARGINE SOLOSTAR 100 UNITS/ML 3 ML PEN SC SCH ×2 (08:01→21:50)
[2019-04-27] MEDS: INSULIN ASPART 100 UNITS/ML 3 ML PEN SC SCH ×4 (08:03→21:52)
[2019-04-27] MEDS ORDERED: LABETALOL HCL IV 5 MG/ML 20ML IV PRN (08:16)
[2019-04-27] MEDS ORDERED: METOPROLOL TARTRATE 25 MG TAB PO SCH (09:00)
[2019-04-27] MEDS ORDERED: LISINOPRIL 5 MG TAB PO SCH ×2 (09:00→11:30)
[2019-04-27] MEDS: PROMETHAZINE HCL 12.5 MG in SODIUM CHLORIDE 0.9% 50 ML IV PRN ×2 (09:19→16:22)
--- NOTE | 2019-04-27 09:54 | Cardiology Consultation ---
Date of Consultation April 27, 2019 Assessment & Plan (1) Acute non-ST elevation myocardial infarction (NSTEMI): Patient admitted with a history of diffuse diabetic ischemic heart disease and ischemic cardiomyopathy having undergone recent coronary intervention the left circumflex with drug-eluting stent for severe diffuse disease. Patient presented this admission with atypical chest discomfort labile blood pressures but rising troponin levels. Currently asymptomatic Plan continue anticoagulation with heparin. Patient notes possible discrepancy in clopidogrel use will investigate with diagnostic cardiac catheterization in a.m. exclude stent thrombosis. In interim decreased myocardial demand by treating blood pressure and heart rate as recommended yesterday. Will increase metoprolol to 50 mg 3 times daily IV metoprolol to be given now topical nitrates to be placed and adjusted as necessary for blood pressure would continue lisinopril (2) Ischemic cardiomyopathy: Echocardiogram last admission severe LV dysfunction EF less than 20%, echocardiogram this morning pending (3) Elevated troponin: As above (4) History of heart artery stent: (5) Hypertension: History of Present Illness Reason for Consultation: Non-ST segment elevation myocardial infarction, chest pain Attending Physician: Geronimo Zhu MD History of Present Illness Patient is a 74-year-old -[place] male recently discharged from [facility] on presentation with non-ST segment elevation [place], diagnosis of heart failure, ischemic cardiomyopathy. During last hospitalization patient underwent diagnostic cardiac catheterization and coronary intervention with patient receiving drug-eluting stent to highly diseased left circumflex obtuse marginal with diffuse residual disease distal circumflex, LAD diagonal, distal LAD, and chronic RCA occlusion Underlying medical issues include hyperlipidemia, diabetes mellitus insulin requiring Patient presents this admission having developed per report and patient history of start stabbing pain possible left arm heaviness. No associated diaphoresis tachypalpitations syncope or near syncope Presented to the emergency room where chronically elevated troponin was initiall y observed no acute ST segment changes on EKG. He was admitted and begun on therapies. Since admission he has had evolutional rise troponins, labile heart rate and blood pressures. Currently patient is without cardiac complaint or arm pain. No nausea or vomiting. No diaphoresis. No tachypalpitations currently For discussion patient raises possible discrepancy in clopidogrel use during time post hospital discharge. Denies bleeding difficulties melena medication dysuria hematuria, currently hungry weight has been stable no worsening shortness of breath currently Allergies Allergy/AdvReac Type Severity Reaction Status Date / Time Sulfa (Sulfonamide Allergy Mild Unknown Verified 11/01/19 10:56 Antibiotics) Penicillins Allergy Unknown . Verified 04/26/19 11:49 Home Medications Home Medications Medication Instructions Recorded Confirmed Type alendronate 70 mg PO SA 02/02/19 04/26/19 History allopurinol 150 mg PO QAM 02/02/19 04/26/19 History aspirin 81 mg PO QAM 02/02/19 04/26/19 History calcium carbonate-vitamin D3 1 tab PO QAM 02/02/19 04/26/19 History [Calcium 600 + D(3)] duloxetine 60 mg PO QAM 02/02/19 04/26/19 History nitroglycerin [Nitrostat] 0.4 mg SUBLINGUAL UD PRN 02/02/19 04/26/19 History acetaminophen 325 mg PO BID 04/15/19 04/26/19 History Hemorrhoidal Suppository 1 supp MN TID 04/16/19 04/26/19 History Humulin 70/30 U-100 Insulin 20 unit SUBCUT QAM 04/16/19 04/26/19 History Humulin 70/30 U-100 Insulin 28 unit SUBCUT QPM 04/16/19 04/26/19 History Humulin R Regular U-100 Insuln 1 sliding scale dose SUBCUT BID 04/16/19 04/26/19 History ranitidine HCl 150 mg PO BID 04/16/19 04/26/19 History atorvastatin 40 mg PO QAM #0 tab 04/24/19 04/26/19 Rx carvedilol 12.5 mg PO BID 30 Days #60 tab 04/24/19 04/26/19 Rx clopidogrel 75 mg PO QAM 30 Days #30 tab 04/24/19 04/26/19 Rx furosemide 40 mg PO QAM 30 Days #30 tab 04/24/19 04/26/19 Rx lisinopril [Zestril] 5 mg PO QAM 30 Days #30 tab 04/24/19 04/26/19 Rx pantoprazole [Protonix] 40 mg PO BID 30 Days #60 tab 04/24/19 04/26/19 Rx Patient History Medical History Gout (Chronic) Diverticulitis (Resolved) Colon polyps (Chronic) GERD (gastroesophageal reflux disease) (Chronic) Diabetes mellitus type 2 with complications (Chronic) Dyslipidemia (Chronic) Hypertension (Chronic) Coronary artery disease (Chronic) Cardiomyopathy (Chronic) Anemia Surgical History History of heart artery stent (Chronic) Status post appendectomy (Chronic) Status post splenectomy (Chronic) Family History Other Diabetes Social History Preferred Language: Hebrew Visual Impairment: No Limitations 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: Normal Fish Net Maker Required: No Beliefs That Will Affect Care: Cultural Cultural Beliefs: no pork Current Living Situation: Other Current Living Situation Comment: correctional facility Other Information That Helps Us Care for You: No Feels Safe at Home: Yes Safety Concerns: Feels Safe At This Time Smoking Status: Former smoker Tobacco Type: cigarettes ; Hx Alcohol Use: No Hx Substance Use: No Review of Systems Review of Systems: All systems reviewed & are unremarkable except as noted in HPI & below Physical Exam Constitutional: + ill appearing and + thin Eyes: PERRL, conjunctivae normal, anicteric sclerae ENMT: external ear and nose normal, oropharynx normal Neck: trachea midline, no thyromegaly Respiratory: normal respiratory effort, lungs clear to auscultation Auscultation: + diminished lung sounds Cardiovascular: Rate/Rhythm: regular rate and regular rhythm Heart Sounds: normal S1 and normal S2; no gallop and no murmur Palpation: normal PMI Vessels: normal carotid upstroke and radial pulses present; no JVD and no carotid bruit Extremities: no edema Gastrointestinal (Abdomen): normal bowel sounds, soft, nontender, no hepatosplenomegaly Musculoskeletal: no cyanosis or clubbing, extremities motor strength 5/5 Skin: no rashes, warm and dry Neurologic: PERRL, EOMI, accommodation nl, no face palsy, no dysarthria Psychiatric: A+Ox3, euthymic affect Results & Data Vital Signs (Past 12 Hours) Vital Signs Temp Pulse Pulse Pulse Resp BP Pulse Ox 04/27/19 09:36 94 H 04/27/19 09:24 96 H 141/100 H 04/27/19 07:53 96 H 143/103 H 04/27/19 07:36 36.8 C 101 H 26 H 140/100 99 04/27/19 03:53 37.1 C 94 H 19 120/81 99 04/27/19 02:00 37.2 C 97 H 97 H 16 125/86 98 04/27/19 00:50 36.5 C 98 H 18 121/85 98 04/26/19 23:48 37.1 C 98 H 20 122/85 98
[2019-04-27] MEDS ORDERED: METOPROLOL TARTRATE 1 MG/ML VIAL IV STA ×2 (09:55→15:53)
[2019-04-27] MEDS: NITROGLYCERIN 2% OINTMENT 30GM TUBE EXT SCH ×3 (10:24→21:47)
--- NOTE | 2019-04-27 12:38 | Hospitalist Progress Note ---
Date of Service April 27, 2019 Assessment & Plan (1) Chest pain: Patient is a 74 yr male with H/O HTN, dyslipidemia, elevated liver functions, DM II, GERD, gout, CAD s/p stent to OM1 on 04/16/19, cardiomyopathy resented to ER from [facility] with Chest Pain. NSTEMI--likely stent thrombosis H/O CAD with recent PCI Elevated Troponin CXR:Mild asymmetric elevation of the interstitium, likely secondary to mild pulmonary vascular congestion/fluid overload. Clinical and radiographic follow- up is recommended Continue IV Heparin Continue aspirin, Plavix, Lipitor, lisinopril Metoprolol dose increased to 50 mg 3 times daily Nitroglycerin for better blood pressure control Appreciate cardiology input NPO after midnight for possible cath in a.m. (2) Cardiomyopathy: Last ECHO: The septal wall is dyskinetic. Moderate global severe hypokinesis to akinesis, LV EF <20%, moderate to severe mitral regurgitation, moderate to severe tricuspid regurgitation, mild pulmonary hypertension Continue Lasix 40mg daily Monitor I's & O's, daily weight (3) Hypertension: Stable Continue Metoprolol, lisinopril (4) Dyslipidemia: Continue atorvastatin (5) Diabetes mellitus type 2 with complications: HbA1c: 8.5 on 04/15/19 Hold insulin 70/30 Continue Basal bolus insulin per sliding scale per protocol Monitor BGs (6) GERD (gastroesophageal reflux disease): Continue PPI, H2 iron DVT Px: on IV Heparin Code Status Full Code Subjective Patient is seen and examined at bedside States having nausea this morning Denies any chest pain, shortness of breath, dizziness Tachycardic on monitor Guards at bedside Offers no other complaints Review of Systems Review of Systems: All systems reviewed & are unremarkable except as noted in HPI & below Physical Exam Physical Exam: Physical Exam: Vitals signs as noted above General Appearance:Moderately built and nourished, no apparent distress Head: normocephalic, Atraumatic Eyes: normal inspection, EOMI Neck: supple, Trachea midline Respiratory/Chest: Normal breath sounds, CTA Cardiovascular: S1, S2, No murmur, +Tachycardia Abdomen/GI:Soft, Non tender, Bowel sounds present Extremities/Musculoskelatal:normal inspection, no edema Neurologic/Psych:AAOX3, grossly no focal neurological deficits Skin: normal color, warm Results & Data Vital Signs (Past 12 Hours) Vital Signs Temp Pulse Pulse Pulse Resp BP Pulse Ox 04/27/19 11:29 37.1 C 93 H 22 124/89 98 04/27/19 10:19 97 H 138/107 H 04/27/19 09:36 94 H 04/27/19 09:24 96 H 141/100 H 04/27/19 07:53 96 H 143/103 H 04/27/19 07:36 36.8 C 101 H 26 H 140/100 99 04/27/19 03:53 37.1 C 94 H 19 120/81 99 04/27/19 02:00 37.2 C 97 H 97 H 16 125/86 98 04/27/19 00:50 36.5 C 98 H 18 121/85 98 Laboratory Results Short CBC 04/27/19 Range/Units 03:49 WBC 4.74 L (4.8-10.8) K/uL Hgb 13.7 L (14.0-18.0) g/dL Hct 42.0 (42-52) % Plt Count 212 (130-400) K/uL BMP 04/26/19 04/26/19 04/27/19 12:13 22:12 03:49 Sodium 140 135 L 134 L Potassium 3.8 4.7 D 4.6 Chloride 107 103 99 Carbon Dioxide 29 27 26 BUN 19 H 23 H 24 H Creatinine 0.82 0.92 0.98 Glucose 89 108 H 162 H Calcium 8.8 8.9 9.2 Cardiac Enzymes 04/26/19 04/26/19 04/27/19 Range/Units 12:13 17:36 00:25 Total Creatine Kinase 82 (39-308) U/L CK-MB (CK-2) 5.2 H (0.5-3.6) ng/ml Troponin I 0.222 H* 6.040 H* 21.000 H* (0-0.045) ng/ml 04/27/19 Range/Units 06:32 Total Creatine Kinase (39-308) U/L CK-MB (CK-2) (0.5-3.6) ng/ml Troponin I 27.700 H* (0-0.045) ng/ml Liver Function 04/26/19 Range/Units 12:13 Total Bilirubin 0.5 (0.2-1) mg/dl AST 48 H (15-37) U/L ALT 128 H (12-78) U/L Alkaline Phosphatase 189 H (45-117) U/L Albumin 2.7 L (3.4-5.0) gm/dl (1) Chest pain Chest pain type: unspecified Qualified Code(s): R07.9 - Chest pain, unspecified
[2019-04-27 12:50] LABS: Partial Thromboplastin Ratio 3.8
[2019-04-27 13:06] LABS: Partial Thromboplastin Time 102.2 Seconds (21.0-31.0)
[2019-04-27] MEDS: HEPARIN SODIUM/DEXTROSE 25,000 UNITS/500 ML BAG IV SCH (14:09)
[2019-04-27] MEDS: METOPROLOL TARTRATE 50 MG TAB PO SCH ×2 (14:13→21:50)
[2019-04-27] MEDS: METOCLOPRAMIDE HCL INJ 5 MG/ML 2 ML VIAL IV PRN (20:28)
[2019-04-27 21:47] LABS: Partial Thromboplastin Ratio 2.8
[2019-04-27 21:57] LABS: Partial Thromboplastin Time 75.1 Seconds (21.0-31.0)
[2019-04-28] MEDS: METOCLOPRAMIDE HCL INJ 5 MG/ML 2 ML VIAL IV PRN (04:13)
[2019-04-28] MEDS: NITROGLYCERIN 2% OINTMENT 30GM TUBE EXT SCH ×4 (04:13→22:27)
[2019-04-28 04:39] LABS: Hematocrit (blood only) 42.5 % (42-52); Hemoglobin 13.9 g/dL (14.0-18.0); Mean Corpuscular Hemoglobin 26.5 pg (25-34); Mean Corpuscular Hgb Conc 32.7 g/dL (32-36); Mean Corpuscular Volume 81.1 fL (80-100); Mean Platelet Volume 10.3 fL (7.4-10.4); Platelet Count 230 K/uL (130-400); RDW Coefficient of Variation 17.1 % (11.5-14.5); Red Blood Count 5.24 M/uL (4.7-6.1); White Blood Count 5.94 K/uL (4.8-10.8)
[2019-04-28 04:57] LABS: BUN Creatinine Ratio 22.9 (10-20); Calcium 9.3 mg/dl (8.5-10.1); Creatinine Clr Calc Pharmacy 40.1 ml/min; Est GFR (African American) 45.4; Est GFR (Non-African American) 39.2; Magnesium 2.3 mg/dl (1.8-2.4); Potassium 5.4 mmol/L (3.5-5.1)
[2019-04-28 05:04] LABS: Partial Thromboplastin Ratio 3.7
[2019-04-28 05:12] LABS: Partial Thromboplastin Time 100.2 Seconds (21.0-31.0)
[2019-04-28] MEDS: INSULIN ASPART 100 UNITS/ML 3 ML PEN SC SCH ×4 (08:33→20:53)
[2019-04-28] MEDS: DULOXETINE HCL 60 MG CAP PO SCH (08:34)
[2019-04-28] MEDS: INSULIN GLARGINE SOLOSTAR 100 UNITS/ML 3 ML PEN SC SCH ×2 (08:34→20:52)
[2019-04-28] MEDS: PANTOprazole 40 MG TAB PO SCH ×2 (08:35→20:50)
[2019-04-28] MEDS: CLOPIDOGREL BISULFATE 75 MG TAB PO SCH (08:35)
[2019-04-28] MEDS: ALLOPURINOL 300 MG TAB PO SCH (08:35)
[2019-04-28] MEDS: ATORVASTATIN 40 MG TAB PO SCH (08:35)
[2019-04-28] MEDS: FUROSEMIDE 40 MG TAB PO SCH (08:35)
[2019-04-28] MEDS: CALCIUM 600MG + VIT D 400 IU TAB PO SCH (08:35)
[2019-04-28] MEDS: ASPIRIN 81 MG ECTAB PO SCH (08:35)
[2019-04-28] MEDS: METOPROLOL TARTRATE 50 MG TAB PO SCH ×3 (08:36→20:50)
[2019-04-28 09:44] LABS: BUN Creatinine Ratio 25.6 (10-20); Calcium 9.4 mg/dl (8.5-10.1); Creatinine Clr Calc Pharmacy 42.9 ml/min; Est GFR (African American) 49.3; Est GFR (Non-African American) 42.5; Potassium 4.8 mmol/L (3.5-5.1)
--- NOTE | 2019-04-28 09:50 | Cardiology Progress Note ---
Date of Service April 28, 2019 Assessment & Plan (1) Acute non-ST elevation myocardial infarction (NSTEMI): Patient no further chest pain overnight Troponins continue to trend higher Diagnostic cardiac catheterization scheduled for later this morning IV hydration begun Renal function variable this morning lisinopril on hold. Patient may warrant use of hydralazine and nitrates versus lisinopril on discharge (2) Elevated troponin: As above (3) Ischemic cardiomyopathy: Echocardiogram this admission slightly improved from prior admission Diffuse ischemic disease present with narrow vessel diabetic coronary artery disease and review of prior cardiac catheterization (4) Chest pain: (5) History of heart artery stent: (6) Hypertension: Subjective Patient seen and examined, chart, medications, telemetry reviewed. Patient less animated this morning but otherwise no complaints. No chest pain or shortness of breath. No arrhythmias on telemetry Results & Data Vital Signs (Past 12 Hours) Vital Signs Temp Pulse Pulse Resp BP BP Pulse Ox 04/28/19 03:31 36.6 C 84 20 122/87 93 04/28/19 00:00 95 H 04/27/19 22:57 36.4 C L 94 H 19 129/87 99 Laboratory Results Laboratory Results - last 24 hr 04/27/19 04/27/19 04/27/19 11:35 11:56 11:56 WBC RBC Hgb Hct MCV MCH MCHC RDW Std Deviation RDW Coeff of Maria Guadalupe Plt Count MPV APTT 102.2 H* PTT Ratio 3.8 Sodium Potassium Chloride Carbon Dioxide Anion Gap BUN Creatinine Est Cr Clr Drug Dosing Est GFR ( Amer) Est GFR (Non-Af Amer) BUN/Creatinine Ratio Glucose POC Glucose 181 H Calcium Magnesium Troponin I 34.000 H* 04/27/19 04/27/19 04/27/19 16:41 16:45 20:05 WBC RBC Hgb Hct MCV MCH MCHC RDW Std Deviation RDW Coeff of Maria Guadalupe Plt Count MPV APTT PTT Ratio Sodium Potassium Chloride Carbon Dioxide Anion Gap BUN Creatinine Est Cr Clr Drug Dosing Est GFR ( Amer) Est GFR (Non-Af Amer) BUN/Creatinine Ratio Glucose POC Glucose 327 H* 212 H Calcium Magnesium Troponin I 44.600 H* 04/27/19 04/27/19 04/28/19 20:05 21:00 04:24 WBC 5.94 RBC 5.24 Hgb 13.9 L Hct 42.5 MCV 81.1 MCH 26.5 MCHC 32.7 RDW Std Deviation 51.0 H RDW Coeff of Maria Guadalupe 17.1 H Plt Count 230 MPV 10.3 APTT 75.1 H* PTT Ratio 2.8 Sodium Potassium Chloride Carbon Dioxide Anion Gap BUN Creatinine Est Cr Clr Drug Dosing Est GFR ( Amer) Est GFR (Non-Af Amer) BUN/Creatinine Ratio Glucose POC Glucose 234 H Calcium Magnesium Troponin I 04/28/19 04/28/19 04/28/19 04:24 04:24 07:36 WBC RBC Hgb Hct MCV MCH MCHC RDW Std Deviation RDW Coeff of Maria Guadalupe Plt Count MPV APTT 100.2 H* PTT Ratio 3.7 Sodium 131 L Potassium 5.4 H D Chloride 96 L Carbon Dioxide 27 Anion Gap 8.0 BUN 38 H D Creatinine 1.67 H D Est Cr Clr Drug Dosing 40.1 Est GFR ( Amer) 45.4 Est GFR (Non-Af Amer) 39.2 BUN/Creatinine Ratio 22.9 H Glucose 273 H POC Glucose 193 H Calcium 9.3 Magnesium 2.3 Troponin I 04/28/19 09:01 WBC RBC Hgb Hct MCV MCH MCHC RDW Std Deviation RDW Coeff of Maria Guadalupe Plt Count MPV APTT PTT Ratio Sodium 131 L Potassium 4.8 Chloride 96 L Carbon Dioxide 27 Anion Gap 8.0 BUN 40 H Creatinine 1.56 H Est Cr Clr Drug Dosing 42.9 Est GFR ( Amer) 49.3 Est GFR (Non-Af Amer) 42.5 BUN/Creatinine Ratio 25.6 H Glucose 239 H POC Glucose Calcium 9.4 Magnesium Troponin I (1) Chest pain Chest pain type: unspecified Qualified Code(s): R07.9 - Chest pain, unspecified
[2019-04-28] MEDS ORDERED: SODIUM CHLORIDE 0.9% 1000ML 1,000 ML IV SCH (10:00)
[2019-04-28] MEDS ORDERED: NiCARDipine HCL INJ 2.5 MG/ML 10 ML AMP ONE (11:49)
[2019-04-28] MEDS ORDERED: HEPARIN (PORCINE) 1000 UNIT/ML 10 ML (CATH LAB USE ONLY) ONE (11:49)
[2019-04-28] MEDS ORDERED: MIDAZOLAM HCL 1 MG/ML 2ML VIAL ONE (11:50)
[2019-04-28] MEDS ORDERED: NITROGLYCERIN/D5W 100MCG/ML 20ML SYR ONE (11:50)
[2019-04-28] MEDS ORDERED: fentaNYL citrate 100 MCG/2 ML VIAL ONE (11:50)
--- NOTE | 2019-04-28 11:55 | Pre Anesthesia Assessment ---
Date of Service April 28, 2019 Pre Sedation Assessment Vital Signs Temp Pulse Pulse Resp BP BP Pulse Ox 04/28/19 08:00 97.9 F 87 16 106/74 99 04/28/19 03:31 97.9 F 84 20 122/87 93 04/28/19 00:00 95 H 04/27/19 22:57 97.5 F L 94 H 19 129/87 99 04/27/19 19:40 98.4 F 93 H 14 130/97 96 04/27/19 17:24 138/99 04/27/19 15:52 150/100 H 04/27/19 15:40 98.1 F 100 H 22 150/108 H 99 04/27/19 14:56 99 H 04/27/19 14:55 150/104 H 04/27/19 14:15 98 H 144/107 H Cardiovascular RRR, no murmur, no edema Respiratory normal respiratory effort, lungs clear to auscultation Pre-Sedation Airway Assessment Smoking Status: Former smoker Hx Sleep Apnea: No Hx Difficult Intubation: No Thyromental Distance: > or= 3.5 Finger Breadths Mallampati Class: III ASA: ASA3 Procedure Planning Contraindications for Sedation: none Current Medications Reviewed: Yes Notes The planned sedation has been discussed with the patient. Informed Consent was obtained. I have identified the patient, determined the appropriateness of sedation and have assessed the patient immediately prior to the procedure. All medicine(s) and interventions are by my order.
[2019-04-28] MEDS ORDERED: CLOPIDOGREL BISULFATE 300 MG TAB ONE (13:01)
--- NOTE | 2019-04-28 13:55 | Post Anesthesia Assessment ---
Date of Service April 28, 2019 Post Sedation Assessment Vital Signs Temp Pulse Pulse Pulse Resp BP BP 04/28/19 13:40 97.5 F L 82 16 122/87 04/28/19 13:25 75 16 109/75 04/28/19 13:10 78 16 100/72 04/28/19 08:00 97.9 F 87 16 106/74 04/28/19 03:31 97.9 F 84 20 122/87 04/28/19 00:00 95 H 04/27/19 22:57 97.5 F L 94 H 19 129/87 04/27/19 19:40 98.4 F 93 H 14 130/97 04/27/19 17:24 138/99 04/27/19 15:52 150/100 H 04/27/19 15:40 98.1 F 100 H 22 150/108 H 04/27/19 14:56 99 H 04/27/19 14:55 150/104 H 04/27/19 14:15 98 H 144/107 H Pulse Ox 04/28/19 13:40 94 04/28/19 13:25 04/28/19 13:10 04/28/19 08:00 99 04/28/19 03:31 93 04/28/19 00:00 04/27/19 22:57 99 04/27/19 19:40 96 04/27/19 17:24 04/27/19 15:52 04/27/19 15:40 99 04/27/19 14:56 04/27/19 14:55 04/27/19 14:15 Recovery Score Activity: Moves 4 extremities Respiration: Deep Breath/Cough Circulation: +/-20% PreAnes Value Consciousness: Fully Awake Oxygen Saturation: > 92% On Room Air Post Anesthesia Score: 10 Discharge Sedation Level of Care: Fast Track Phase II Post Sedation Plan On clinical assessment, the patient appears to have tolerated the sedation without complications. Patient is recovering as anticipated. Patient will continue to be monitored by nursing and may be discharged when sedation discharge criteria are met per below protocol. Upon Completions of procedure and additional 15 minutes continue every 5 minute vital signs and the P.A.R. score; then discharge to a Phase I or Fast Track to Phase II per the following guidelines: * Discharge Patient to appropriate Phase II area if PAR is 8 or greater or retu rn to pre- procedure baseline. The post - procedure orders will be as directed. * If PAR score is less than 8 or not return to pre-procedure baseline then patient will follow Phase I monitoring till PAR is reached for Phase II. The Phase I may be done in procedure room or may call to secure a Phase I area. * If naloxone or flumazenil are used for reversal, hold in Phase I for continued monitoring from when last reversal dose was given for a minimum of 60 minutes or longer pending the nurse and/or physician discretion of patient condition before discharge to Phase II. Please call the Sedation Physician to re-evaluate and complete post-note for discharge to Phase II area. Do NOT discharge from procedure sedation or Phase 1 until post- sedation evaluation note is complete by procedure /sedation MD Sedation Discharge Instructions to be given to the patient at discharge to home.
--- NOTE | 2019-04-28 14:05 | Cardiac Catheterization ---
[facility] Data: Market Development Manager Cardiac Status Clinical evaluation leading to the procedure CAD Presenation: Non STEMI Anginal Classification: CCS IV Heart Failure: No Cardiogenic Shock within 24 Hours: No Cardiac Arrest within 24 Hours: No Imaging Studies Past 6 Months: Yes Stress Studies Past 6 Months: No Diagnostic Physicians Name: Lauri Lozano MD Status: Elective Closure Device Percutaneous Entry Location: Radial Closure Device: Radial Band Recommendations: PCI without planned CABG PCI Indication: PCI for high risk Non-CHARLES Lesion Segment Name: OM1 Culprit Artery: Yes Stenosis Prior to Rx (%): 100 Chronic Total Occlusion: No IVUS: Yes FFR: No Pre-Procedure PALOMA Flow: 0 Previously Treated Lesion: Timeframe: less than 1 month Treated with Stent: Yes In-Stent Restenosis: No In-Stent Thrombosis: Yes Stent Type: MICHAEL Yes Lesion Complexity: Non-High/Non-C Lesion Length (mm): 12 Thrombus Present: Yes Bifurcation Lesion: No Guidewire Across Lesion: Stenosis Post-Procedure (%): 0 Post-Procedure PALOMA Flow: 3 Devices(s) Deployed: Yes Yes Intraprocedure Events Significant Disection: No Perforation: No Cardiac Cath Procedure Full Procedure Date April 28, 2019 Pre-Procedure Diagnosis Pre-Procedure Diagnosis: Non STEMI AUC Score AUC Score: 8 Post-Procedure Diagnosis Post-Procedure Diagnosis: Severe CAD, Successful PCI and Elevated Intracardiac Pressures Procedure(s) Performed Procedure(s) Performed: Coronary Angiography, Left Heart Cath, Drug Eluting Stent, Ultrasound Guided Vascular Access and IVUS Heat Treating Furnace Tender Lauri Lozano MD Typewriter Aligner(s) Suhas Estimated Blood Loss Estimated Blood Loss: 10 Medication(s) Medication(s): Clopidogrel, Fentanyl, Lidocaine 1%, Nicardipine, Nitroglycerin and Versed Summary of Findings Indication: High risk NSTEMI Access: 6Fr right radial artery under ultrasound guidance Catheters: Kevin Findings: LM -large caliber vessel without significant disease LAD -large caliber vessel, 30% proximal to mid disease, 30 to 40% latemid at takeoff of second septal, severe 80 to 90% disease in small, distal segment as wraps around apex. First diagonal 100% occluded and fills retrograde via left to left collaterals. Circumflex -moderate caliber vessel. High first OM with 100% occlusion in proximal aspect of prior stent. Small mid to distal circumflex with moderate diffuse disease. RCA -known to be chronically occluded. Fills partially via left to right collaterals. LVEDP - 25 -- PCI -- Antithrombotic therapy: Heparin, clopidogrel Procedure: Left main cannulated with EBU 3.5 guide Tick Inspector 50 wire passed across lesion into distal vessel Occluded stent dilated with 2.0 and 2.5 balloons IVUS revealed well-expanded stent with no significant residual in-stent disease. Moderate diffuse disease distal to stent. Moderate to severe residual stenosis just proximal to stent with diffuse disease extending back into ostial circumflex. Whisper wire placed into distal circumflex 2.5 x 8 mm Xience Debora stent placed from ostium of high OM1 overlapping with proximal aspect of prior stent Stent post-dilated with stent balloon IC vasodilators administered for spasm Post procedure PALOMA 3 flow, stent well expanded with minimal residual stenosis and no apparent cardiac complications. Arterial Closure: TR band Summary: 1. Subacute stent thrombosis with 100% occlusion of proximal aspect of OM1 stent 2. Elevated intracardiac filling pressure 3. Successful PCI of OM1 with single drug-eluting stent placed from ostium overlapping proximal aspect of prior stent (2.5 x 8 mm Xience Debora) Recommendations: To PCU for continued monitoring Loaded with Clopidogrel 300 mg in laboratory equipment cleaner Continue dual-antiplatelet therapy for at least one year, consider indefinitely with stent thrombosis Continue diuresis per Dr. Lawson Hemodynamics Rest Ao:: 97/61/76 Final Ao: 96/59/72 LV: 95/25 Recommendations Recommendations: PCI without planned CABG Specimens Specimens: None Radiation Exposure (mGy) 2798 Contrast (mls) 95 Fluids (cc crystalloids) Fluids (cc crystalloids): 100 Drains Drains: none Anesthesia moderate Procedural Complication(s) None Disposition PCU I attest to the content of the Intraoperative Record and any orders documented therein. Any exceptions are noted below.
--- NOTE | 2019-04-28 16:53 | Hospitalist Progress Note ---
Date of Service April 28, 2019 Assessment & Plan (1) Chest pain: Patient is a 74 yr male with H/O HTN, dyslipidemia, elevated liver functions, DM II, GERD, gout, CAD s/p stent to OM1 on 04/16/19, cardiomyopathy resented to ER from [facility] with Chest Pain. NSTEMI--due to stent thrombosis H/O CAD with recent PCI 04/28/19: S/P Cardiac Cath:Subacute stent thrombosis with 100% occlusion of proximal aspect of OM1 stent CXR:Mild asymmetric elevation of the interstitium, likely secondary to mild pulmonary vascular congestion/fluid overload. Clinical and radiographic follow- up is recommended On IV Heparin Continue aspirin, Plavix, Lipitor, lisinopril Metoprolol dose increased to 50 mg 3 times daily on NTG Appreciate cardiology input Likely will need to continue dual antiplatelet therapy indefinitely due to stent thrombosis Acute Kidney Injury Hold Lisinopril, Lasix Gentle IV fluids due to Ischemic Cardiomyopathy Cr:1.56 Monitor renal function Avoid Nephrotoxic agents as able (2) Cardiomyopathy: Last ECHO: The septal wall is dyskinetic. Moderate global severe hypokinesis to akinesis, LV EF <20%, moderate to severe mitral regurgitation, moderate to severe tricuspid regurgitation, mild pulmonary hypertension Continue Lasix 40mg daily Monitor I's & O's, daily weight (3) Hypertension: Stable Continue Metoprolol, lisinopril (4) Dyslipidemia: Continue atorvastatin (5) Diabetes mellitus type 2 with complications: HbA1c: 8.5 on 04/15/19 Hold insulin 70/30 Continue Basal bolus insulin per sliding scale per protocol Monitor BGs (6) GERD (gastroesophageal reflux disease): Continue PPI, H2 iron DVT Px: on IV Heparin Code Status Full Code Subjective Patient is seen and examined at bedside Had cardiac cath today Denies any chest pain, shortness of breath, dizziness, nausea, abd pain Guards at bedside Offers no other complaints Review of Systems Review of Systems: All systems reviewed & are unremarkable except as noted in HPI & below Physical Exam Physical Exam: Physical Exam: Vitals signs as noted above General Appearance:Moderately built and nourished, no apparent distress Head: normocephalic, Atraumatic Eyes: normal inspection, EOMI Neck: supple, Trachea midline Respiratory/Chest: Normal breath sounds, CTA Cardiovascular: S1, S2, No murmur Abdomen/GI:Soft, Non tender, Bowel sounds present Extremities/Musculoskelatal:normal inspection, no edema Neurologic/Psych:AAOX3, grossly no focal neurological deficits Skin: normal color, warm Results & Data Vital Signs (Past 12 Hours) Vital Signs Temp Pulse Pulse Resp BP BP Pulse Ox 04/28/19 15:59 75 112/87 99 04/28/19 15:30 75 100/65 04/28/19 15:00 81 16 115/72 95 04/28/19 14:30 81 16 115/72 95 04/28/19 14:15 82 18 123/85 94 04/28/19 14:00 82 18 123/85 94 04/28/19 13:40 36.4 C L 89 16 121/89 94 04/28/19 13:25 75 16 109/75 04/28/19 13:10 78 16 100/72 04/28/19 08:00 36.6 C 87 16 106/74 99 Laboratory Results Short CBC 04/28/19 Range/Units 04:24 WBC 5.94 (4.8-10.8) K/uL Hgb 13.9 L (14.0-18.0) g/dL Hct 42.5 (42-52) % Plt Count 230 (130-400) K/uL BMP 04/28/19 04/28/19 04:24 09:01 Sodium 131 L 131 L Potassium 5.4 H D 4.8 Chloride 96 L 96 L Carbon Dioxide 27 27 BUN 38 H D 40 H Creatinine 1.67 H D 1.56 H Glucose 273 H 239 H Calcium 9.3 9.4 Cardiac Enzymes 04/27/19 Range/Units 20:05 Troponin I 44.600 H* (0-0.045) ng/ml (1) Chest pain Chest pain type: unspecified Qualified Code(s): R07.9 - Chest pain, unspecified
[2019-04-29] MEDS: NITROGLYCERIN 2% OINTMENT 30GM TUBE EXT SCH ×2 (01:49→11:07)
[2019-04-29 06:15] LABS: Hematocrit (blood only) 35.6 % (42-52); Hemoglobin 11.8 g/dL (14.0-18.0); Mean Corpuscular Hemoglobin 26.3 pg (25-34); Mean Corpuscular Hgb Conc 33.1 g/dL (32-36); Mean Corpuscular Volume 79.3 fL (80-100); Mean Platelet Volume 9.9 fL (7.4-10.4); Platelet Count 189 K/uL (130-400); RDW Coefficient of Variation 17.2 % (11.5-14.5); RDW Standard Deviation 49.6 fL (36.4-46.3); Red Blood Count 4.49 M/uL (4.7-6.1); White Blood Count 6.02 K/uL (4.8-10.8)
[2019-04-29 06:42] LABS: Partial Thromboplastin Time 26.2 Seconds (21.0-31.0)
[2019-04-29 06:54] LABS: BUN Creatinine Ratio 31.7 (10-20); Calcium 8.9 mg/dl (8.5-10.1); Creatinine Clr Calc Pharmacy 52.7 ml/min; Est GFR (African American) 63.2; Est GFR (Non-African American) 54.5; Potassium 4.1 mmol/L (3.5-5.1)
[2019-04-29] MEDS: INSULIN ASPART 100 UNITS/ML 3 ML PEN SC SCH ×4 (08:19→21:10)
[2019-04-29] MEDS: DULOXETINE HCL 60 MG CAP PO SCH (08:20)
[2019-04-29] MEDS: CALCIUM 600MG + VIT D 400 IU TAB PO SCH (08:20)
[2019-04-29] MEDS: METOPROLOL TARTRATE 50 MG TAB PO SCH ×2 (08:20→13:53)
[2019-04-29] MEDS: ASPIRIN 81 MG ECTAB PO SCH (08:20)
[2019-04-29] MEDS: ALLOPURINOL 300 MG TAB PO SCH (08:21)
[2019-04-29] MEDS: CLOPIDOGREL BISULFATE 75 MG TAB PO SCH (08:21)
[2019-04-29] MEDS: ATORVASTATIN 40 MG TAB PO SCH (08:21)
[2019-04-29] MEDS: INSULIN GLARGINE SOLOSTAR 100 UNITS/ML 3 ML PEN SC SCH ×2 (08:21→21:09)
[2019-04-29] MEDS: PANTOprazole 40 MG TAB PO SCH ×2 (08:21→21:39)
[2019-04-29] MEDS ORDERED: POLYETHYLENE (MIRALAX) 17 GM PACK PO PRN (10:23)
[2019-04-29] MEDS: PROMETHAZINE HCL 12.5 MG in SODIUM CHLORIDE 0.9% 50 ML IV PRN (11:07)
--- NOTE | 2019-04-29 11:53 | Cardiology Progress Note ---
Date of Service April 29, 2019 Assessment & Plan (1) Acute non-ST elevation myocardial infarction (NSTEMI): Patient no further chest pain overnight Patient underwent diagnostic cardiac catheterization and coronary intervention OM stent secondary to subtotal OM occlusion with good clinical result Due to current complaints of hiccups EKG and echocardiogram will be repeated No overt signs of heart failure on exam We will optimize medical regimen discontinue metoprolol tartrate and begin metoprolol succinate Change topical nitrates to oral given residual coronary disease (2) Elevated troponin: As above (3) Ischemic cardiomyopathy: Echocardiogram this admission slightly improved from prior admission Diffuse ischemic disease present with narrow vessel diabetic coronary artery disease Echocardiogram be repeated today as above (4) Chest pain: (5) History of heart artery stent: (6) Hypertension: Subjective Patient seen and examined, chart, medications, telemetry reviewed. No further chest pain or discomfort has had hiccups throughout the morning. No worsening shortness of breath or orthopnea. No dizziness or lightheadedness. No arrhythmias on telemetry Physical Exam Constitutional: + ill appearing and + thin Eyes: PERRL, conjunctivae normal, anicteric sclerae ENMT: external ear and nose normal, oropharynx normal Neck: trachea midline, no thyromegaly Respiratory: normal respiratory effort, lungs clear to auscultation Auscultation: + diminished lung sounds Cardiovascular: Rate/Rhythm: regular rate and regular rhythm Heart Sounds: normal S1 and normal S2; no gallop and no murmur Palpation: normal PMI Vessels: normal carotid upstroke and radial pulses present; no JVD and no carotid bruit Extremities: no edema Right radial access site healing Gastrointestinal (Abdomen): normal bowel sounds, soft, nontender, no hepatosplenomegaly Musculoskeletal: no cyanosis or clubbing, extremities motor strength 5/5 Skin: no rashes, warm and dry Neurologic: PERRL, EOMI, accommodation nl, no face palsy, no dysarthria Psychiatric: A+Ox3, euthymic affect Results & Data Vital Signs (Past 12 Hours) Vital Signs Temp Pulse Resp BP Pulse Ox 04/29/19 08:17 37.0 C 90 20 105/70 96 04/29/19 04:25 37.2 C 91 H 20 128/83 98 04/29/19 00:20 36.7 C 83 19 96/62 L 97 Laboratory Results Laboratory Results - last 24 hr 04/28/19 04/28/19 04/28/19 13:56 18:08 20:48 WBC RBC Hgb Hct MCV MCH MCHC RDW Std Deviation RDW Coeff of Maria Guadalupe Plt Count MPV APTT PTT Ratio Sodium Potassium Chloride Carbon Dioxide Anion Gap BUN Creatinine Est Cr Clr Drug Dosing Est GFR ( Amer) Est GFR (Non-Af Amer) BUN/Creatinine Ratio Glucose POC Glucose 159 H 126 H 175 H Calcium Specimen Hemolysis 04/29/19 04/29/19 04/29/19 06:00 06:00 06:00 WBC 6.02 RBC 4.49 L Hgb 11.8 L Hct 35.6 L MCV 79.3 L MCH 26.3 MCHC 33.1 RDW Std Deviation 49.6 H RDW Coeff of Maria Guadalupe 17.2 H Plt Count 189 MPV 9.9 APTT 26.2 PTT Ratio 1.0 Sodium 134 L Potassium 4.1 Chloride 101 Carbon Dioxide 25 Anion Gap 8.0 BUN 40 H Creatinine 1.27 Est Cr Clr Drug Dosing 52.7 Est GFR ( Amer) 63.2 Est GFR (Non-Af Amer) 54.5 BUN/Creatinine Ratio 31.7 H Glucose 175 H POC Glucose Calcium 8.9 Specimen Hemolysis 04/29/19 07:08 WBC RBC Hgb Hct MCV MCH MCHC RDW Std Deviation RDW Coeff of Maria Guadalupe Plt Count MPV APTT PTT Ratio Sodium Potassium Chloride Carbon Dioxide Anion Gap BUN Creatinine Est Cr Clr Drug Dosing Est GFR ( Amer) Est GFR (Non-Af Amer) BUN/Creatinine Ratio Glucose POC Glucose 157 H Calcium Specimen Hemolysis (1) Chest pain Chest pain type: unspecified Qualified Code(s): R07.9 - Chest pain, unspecified
--- NOTE | 2019-04-29 13:56 | Hospitalist Progress Note ---
Date of Service April 29, 2019 Assessment & Plan (1) Chest pain: Patient is a 74 yr male with H/O HTN, dyslipidemia, elevated liver functions, DM II, GERD, gout, CAD s/p stent to OM1 on 04/16/19, cardiomyopathy resented to ER from [facility] with Chest Pain. NSTEMI--due to stent thrombosis H/O CAD with recent PCI 04/28/19: S/P Cardiac Cath:Subacute stent thrombosis with 100% occlusion of proximal aspect of OM1 stent CXR:Mild asymmetric elevation of the interstitium, likely secondary to mild pulmonary vascular congestion/fluid overload. Clinical and radiographic follow- up is recommended IV Heparin discontinued Continue aspirin, Plavix, Lipitor, lisinopril Started on Metoprolol succinate 75mg BID Started on Isosorbide Dinitrate 20mg BID Appreciate cardiology input Likely will need to continue dual antiplatelet therapy indefinitely due to stent thrombosis Plan to repeat ECHO, EKG today Acute Kidney Injury Hold Lisinopril, Lasix Received gentle IV fluids due to Ischemic Cardiomyopathy Cr:1.56>>1.27 Monitor renal function Avoid Nephrotoxic agents as able (2) Cardiomyopathy: Last ECHO: The septal wall is dyskinetic. Moderate global severe hypokinesis to akinesis, LV EF <20%, moderate to severe mitral regurgitation, moderate to severe tricuspid regurgitation, mild pulmonary hypertension Continue Lasix 40mg daily Monitor I's & O's, daily weight (3) Hypertension: Stable Continue Metoprolol, lisinopril (4) Dyslipidemia: Continue atorvastatin (5) Diabetes mellitus type 2 with complications: HbA1c: 8.5 on 04/15/19 Hold insulin 70/30 Continue Basal bolus insulin per sliding scale per protocol Monitor BGs (6) GERD (gastroesophageal reflux disease): Continue PPI, H2 iron DVT Px: Heparin SQ Code Status Full Code Subjective Patient is seen and examined at bedside Denies any chest pain, SOB, dizziness, abd pain, nausea today Reports hiccups Planned for repeat ECHO today Guards at bedside Review of Systems Review of Systems: All systems reviewed & are unremarkable except as noted in HPI & below Physical Exam Physical Exam: Physical Exam: Vitals signs as noted above General Appearance:Moderately built and nourished, no apparent distress Head: normocephalic, Atraumatic Eyes: normal inspection, EOMI Neck: supple, Trachea midline Respiratory/Chest: Normal breath sounds, CTA Cardiovascular: S1, S2, No murmur Abdomen/GI:Soft, Non tender, Bowel sounds present Extremities/Musculoskelatal:normal inspection, no edema Neurologic/Psych:AAOX3, grossly no focal neurological deficits Skin: normal color, warm Results & Data Vital Signs (Past 12 Hours) Vital Signs Temp Pulse Resp BP Pulse Ox 04/29/19 12:05 36.4 C L 84 22 106/70 97 04/29/19 08:17 37.0 C 90 20 105/70 96 04/29/19 04:25 37.2 C 91 H 20 128/83 98 Laboratory Results Short CBC 04/29/19 Range/Units 06:00 WBC 6.02 (4.8-10.8) K/uL Hgb 11.8 L (14.0-18.0) g/dL Hct 35.6 L (42-52) % Plt Count 189 (130-400) K/uL BMP 04/29/19 06:00 Sodium 134 L Potassium 4.1 Chloride 101 Carbon Dioxide 25 BUN 40 H Creatinine 1.27 Glucose 175 H Calcium 8.9 (1) Chest pain Chest pain type: unspecified Qualified Code(s): R07.9 - Chest pain, unspecified
[2019-04-29] MEDS: HEPARIN SOD 5,000 UNIT/0.5 ML VIAL SQ SCH ×2 (14:22→21:11)
[2019-04-29] MEDS: ISOSORBIDE DINITRATE 20 MG TAB PO SCH (17:48)
[2019-04-29] MEDS: METOPROLOL SUCC 50MG EXT REL TAB PO SCH (21:39)
[2019-04-30] MEDS: PROMETHAZINE HCL 12.5 MG in SODIUM CHLORIDE 0.9% 50 ML IV PRN (04:26)
[2019-04-30] MEDS: HEPARIN SOD 5,000 UNIT/0.5 ML VIAL SQ SCH ×3 (05:13→21:14)
[2019-04-30 07:21] LABS: Hematocrit (blood only) 36.1 % (42-52)
[2019-04-30 07:31] LABS: Partial Thromboplastin Time 26.6 Seconds (21.0-31.0)
[2019-04-30 07:54] LABS: BUN Creatinine Ratio 29.5 (10-20); Calcium 8.9 mg/dl (8.5-10.1); Creatinine Clr Calc Pharmacy 54.4 ml/min; Est GFR (African American) 65.7; Est GFR (Non-African American) 56.7
[2019-04-30] MEDS: INSULIN ASPART 100 UNITS/ML 3 ML PEN SC SCH ×4 (08:34→21:15)
[2019-04-30] MEDS: ASPIRIN 81 MG ECTAB PO SCH (08:36)
[2019-04-30] MEDS: CALCIUM 600MG + VIT D 400 IU TAB PO SCH (08:36)
[2019-04-30] MEDS: ISOSORBIDE DINITRATE 20 MG TAB PO SCH (08:36)
[2019-04-30] MEDS: ALLOPURINOL 300 MG TAB PO SCH (08:36)
[2019-04-30] MEDS: CLOPIDOGREL BISULFATE 75 MG TAB PO SCH (08:37)
[2019-04-30] MEDS: ATORVASTATIN 40 MG TAB PO SCH (08:37)
[2019-04-30] MEDS: DULOXETINE HCL 60 MG CAP PO SCH (08:37)
[2019-04-30] MEDS: PANTOprazole 40 MG TAB PO SCH ×2 (08:37→21:12)
[2019-04-30] MEDS: METOPROLOL SUCC 50MG EXT REL TAB PO SCH ×2 (08:37→21:13)
[2019-04-30] MEDS: INSULIN GLARGINE SOLOSTAR 100 UNITS/ML 3 ML PEN SC SCH ×2 (08:38→21:14)
--- NOTE | 2019-04-30 11:46 | Cardiology Progress Note ---
Date of Service April 30, 2019 Assessment & Plan (1) Acute non-ST elevation myocardial infarction (NSTEMI): Patient no further chest pain overnight Still with hiccups overnight but no chest pain or discomfort. Mildly nauseated today Patient on appropriate medical regimen currently Will reduce Isordil to 10 mg twice daily (2) Elevated troponin: As above (3) Ischemic cardiomyopathy: Echocardiogram this admission slightly improved from prior admission Diffuse ischemic disease present with narrow vessel diabetic coronary artery disease Echocardiogram reflects old and inferior posterior infarct but no acute changes mild to moderate mitral insufficiency ejection fraction approximately 25% (4) Chest pain: (5) History of heart artery stent: (6) Hypertension: Subjective Patient seen and examined, chart, medications, telemetry reviewed. No chest pain or shortness of breath, still with hiccups. Episode of nausea recently. Hemodynamically stable Physical Exam Constitutional: + thin Eyes: PERRL, conjunctivae normal, anicteric sclerae ENMT: external ear and nose normal, oropharynx normal Neck: trachea midline, no thyromegaly Respiratory: normal respiratory effort, lungs clear to auscultation Auscultation: + diminished lung sounds Cardiovascular: Rate/Rhythm: regular rate and regular rhythm Heart Sounds: normal S1 and normal S2; no gallop and no murmur Palpation: normal PMI Vessels: normal carotid upstroke and radial pulses present; no JVD and no carotid bruit Extremities: no edema Gastrointestinal (Abdomen): normal bowel sounds, soft, nontender, no hepatosplenomegaly Musculoskeletal: no cyanosis or clubbing, extremities motor strength 5/5 Skin: no rashes, warm and dry Neurologic: PERRL, EOMI, accommodation nl, no face palsy, no dysarthria Psychiatric: A+Ox3, euthymic affect Results & Data Vital Signs (Past 12 Hours) Vital Signs Temp Pulse Resp BP BP Pulse Ox 04/30/19 11:29 36.9 C 81 21 110/75 98 04/30/19 08:00 83 04/30/19 07:19 36.7 C 74 20 108/75 98 04/30/19 04:20 37.2 C 84 21 131/85 98 04/30/19 00:00 36.5 C 77 19 107/82 96 Laboratory Results Laboratory Results - last 24 hr 04/29/19 04/29/19 04/29/19 11:34 16:18 20:37 Hgb Hct APTT PTT Ratio Sodium Potassium Chloride Carbon Dioxide Anion Gap BUN Creatinine Est Cr Clr Drug Dosing Est GFR ( Amer) Est GFR (Non-Af Amer) BUN/Creatinine Ratio Glucose POC Glucose 152 H 192 H 131 H Calcium 04/30/19 04/30/19 04/30/19 06:33 06:33 06:33 Hgb 12.0 L Hct 36.1 L APTT 26.6 PTT Ratio 1.0 Sodium 135 L Potassium 4.0 Chloride 101 Carbon Dioxide 25 Anion Gap 10.0 BUN 36 H Creatinine 1.23 Est Cr Clr Drug Dosing 54.4 Est GFR ( Amer) 65.7 Est GFR (Non-Af Amer) 56.7 BUN/Creatinine Ratio 29.5 H Glucose 105 H POC Glucose Calcium 8.9 04/30/19 04/30/19 07:20 11:31 Hgb Hct APTT PTT Ratio Sodium Potassium Chloride Carbon Dioxide Anion Gap BUN Creatinine Est Cr Clr Drug Dosing Est GFR ( Amer) Est GFR (Non-Af Amer) BUN/Creatinine Ratio Glucose POC Glucose 93 170 H Calcium (1) Chest pain Chest pain type: unspecified Qualified Code(s): R07.9 - Chest pain, unspecified
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
[2019-04-30] MEDS: ISOSORBIDE DINITRATE 10 MG TAB PO SCH (17:17)
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
[2019-05-01] MEDS: PROMETHAZINE HCL 12.5 MG in SODIUM CHLORIDE 0.9% 50 ML IV PRN (00:35)
[2019-05-01] MEDS: HEPARIN SOD 5,000 UNIT/0.5 ML VIAL SQ SCH ×3 (05:16→20:53)
[2019-05-01 05:36] LABS: Hematocrit (blood only) 36.5 % (42-52); Hemoglobin 11.8 g/dL (14.0-18.0); Mean Corpuscular Hgb Conc 32.3 g/dL (32-36); Mean Corpuscular Volume 80.6 fL (80-100); Mean Platelet Volume 10.4 fL (7.4-10.4); Platelet Count 205 K/uL (130-400); RDW Coefficient of Variation 17.4 % (11.5-14.5); RDW Standard Deviation 50.4 fL (36.4-46.3); Red Blood Count 4.53 M/uL (4.7-6.1); White Blood Count 5.07 K/uL (4.8-10.8)
[2019-05-01 06:18] LABS: BUN Creatinine Ratio 29.8 (10-20); Bilirubin Direct 0.9 mg/dl (0-0.2); Calcium 8.7 mg/dl (8.5-10.1); Creatinine Clr Calc Pharmacy 51.9 ml/min; Est GFR (Non-African American) 53.5; Magnesium 2.4 mg/dl (1.8-2.4); Potassium 4.2 mmol/L (3.5-5.1)
[2019-05-01 06:21] LABS: Albumin Globulin Ratio 0.7 (0.9-2); Bilirubin,Total 1.6 mg/dl (0.2-1); Globulin 4.6 gm/dl (2.5-4.0); Total Protein 7.6 gm/dl (6.4-8.2)
--- NOTE | 2019-05-01 07:04 | XRay Report ---
XR chest 1V portable CLINICAL HISTORY: CHF COMPARISON STUDY: 04/26/2019 FINDINGS: The heart is enlarged. There is aortic tortuosity. There is been resolution of the previous ly described mild congestive failure. There is no focal pulmonary consolidation. There are no signifi cant pleural effusions.[ IMPRESSION: 1. Cardiomegaly. No acute findings. No evidence of failure. Electronically signed by: Jesus Llamas M.D. 05/01/2019 7:03 AM
[2019-05-01] MEDS: INSULIN ASPART 100 UNITS/ML 3 ML PEN SC SCH ×4 (08:20→20:52)
[2019-05-01] MEDS: PANTOprazole 40 MG TAB PO SCH ×2 (08:21→20:52)
[2019-05-01] MEDS: METOPROLOL SUCC 50MG EXT REL TAB PO SCH ×2 (08:21→20:52)
[2019-05-01] MEDS: ASPIRIN 81 MG ECTAB PO SCH (08:21)
[2019-05-01] MEDS: DULOXETINE HCL 60 MG CAP PO SCH (08:21)
[2019-05-01] MEDS: ISOSORBIDE DINITRATE 10 MG TAB PO SCH ×2 (08:22→17:13)
[2019-05-01] MEDS: ATORVASTATIN 40 MG TAB PO SCH (08:22)
[2019-05-01] MEDS: ALLOPURINOL 300 MG TAB PO SCH (08:22)
[2019-05-01] MEDS: CLOPIDOGREL BISULFATE 75 MG TAB PO SCH (08:22)
[2019-05-01] MEDS: INSULIN GLARGINE SOLOSTAR 100 UNITS/ML 3 ML PEN SC SCH ×2 (08:23→20:52)
[2019-05-01] MEDS ORDERED: ONDANSETRON 4 MG OD TAB PO PRN (11:43)
[2019-05-01] MEDS: BACLOFEN 10 MG TAB PO SCH ×2 (12:10→17:13)
--- NOTE | 2019-05-01 14:13 | Cardiology Progress Note ---
Date of Service May 01, 2019 Assessment & Plan (1) Acute non-ST elevation myocardial infarction (NSTEMI): Patient no further chest pain overnight Still with hiccups overnight but no chest pain or discomfort. Patient on appropriate medical regimen currently including heart failure dire cted beta-iron, dual antiplatelet therapy, lisinopril, atorvastatin Would continue low-dose nitrates, diuretics as ordered (2) Elevated troponin: As above (3) Ischemic cardiomyopathy: Echocardiogram this admission slightly improved from prior admission Diffuse ischemic disease present with narrow vessel diabetic coronary artery disease Echocardiogram reflects old and inferior posterior infarct but no acute changes mild to moderate mitral insufficiency ejection fraction approximately 25% (4) Chest pain: (5) History of heart artery stent: (6) Hypertension: Subjective Patient seen and examined, chart, medications, telemetry reviewed. No chest pain or shortness of breath, still with hiccups. No further episodes of emesis. Hemodynamically stable Physical Exam Constitutional: + thin Eyes: PERRL, conjunctivae normal, anicteric sclerae ENMT: external ear and nose normal, oropharynx normal Neck: trachea midline, no thyromegaly Respiratory: normal respiratory effort, lungs clear to auscultation Auscultation: + diminished lung sounds Cardiovascular: Rate/Rhythm: regular rate and regular rhythm Heart Sounds: normal S1 and normal S2; no gallop and no murmur Palpation: normal PMI Vessels: normal carotid upstroke and radial pulses present; no JVD and no carotid bruit Extremities: no edema Gastrointestinal (Abdomen): normal bowel sounds, soft, nontender, no hepatosplenomegaly Musculoskeletal: no cyanosis or clubbing, extremities motor strength 5/5 Skin: no rashes, warm and dry Neurologic: PERRL, EOMI, accommodation nl, no face palsy, no dysarthria Psychiatric: A+Ox3, euthymic affect Results & Data Vital Signs (Past 12 Hours) Vital Signs Temp Pulse Resp BP Pulse Ox 05/01/19 11:18 36.6 C 75 21 131/85 96 05/01/19 08:00 74 05/01/19 07:33 36.8 C 75 18 137/91 99 05/01/19 03:22 36.6 C 77 16 114/82 96 Laboratory Results Laboratory Results - last 24 hr 04/30/19 04/30/19 05/01/19 17:13 20:41 05:23 WBC 5.07 RBC 4.53 L Hgb 11.8 L Hct 36.5 L MCV 80.6 MCH 26.0 MCHC 32.3 RDW Std Deviation 50.4 H RDW Coeff of Maria Guadalupe 17.4 H Plt Count 205 MPV 10.4 Sodium Potassium Chloride Carbon Dioxide Anion Gap BUN Creatinine Est Cr Clr Drug Dosing Est GFR ( Amer) Est GFR (Non-Af Amer) BUN/Creatinine Ratio Glucose POC Glucose 232 H 212 H Calcium Magnesium Total Bilirubin Direct Bilirubin AST ALT Alkaline Phosphatase Total Protein Albumin Globulin Albumin/Globulin Ratio Lipase 05/01/19 05/01/19 05/01/19 05:23 07:35 11:19 WBC RBC Hgb Hct MCV MCH MCHC RDW Std Deviation RDW Coeff of Maria Guadalupe Plt Count MPV Sodium 135 L Potassium 4.2 Chloride 104 Carbon Dioxide 22 Anion Gap 9.0 BUN 38 H Creatinine 1.29 Est Cr Clr Drug Dosing 51.9 Est GFR ( Amer) 62.0 Est GFR (Non-Af Amer) 53.5 BUN/Creatinine Ratio 29.8 H Glucose 128 H POC Glucose 116 H 118 H Calcium 8.7 Magnesium 2.4 Total Bilirubin 1.6 H Direct Bilirubin 0.9 H AST 111 H ALT 135 H Alkaline Phosphatase 238 H Total Protein 7.6 Albumin 3.0 L Globulin 4.6 H Albumin/Globulin Ratio 0.7 L Lipase 45 L (1) Chest pain Chest pain type: unspecified Qualified Code(s): R07.9 - Chest pain, unspecified
--- NOTE | 2019-05-01 18:23 | Hospitalist Progress Note ---
Date of Service May 01, 2019 Assessment & Plan (1) Acute non-ST elevation myocardial infarction (NSTEMI): Known multivessel coronary artery disease, status post recent PCI of OM1 with ug-eluting stent. Presented with recurrent chest pain. Serum troponin elevated. Cardiac catheter demonstrated subacute stent thrombosis with 100% occlusion of the proximal OM1 stent. PCI with drug-eluting stent performed with good results. Continue aspirin, clopidogrel, metoprolol, lisinopril, nitrates, statin. (2) Acute on chronic systolic ACC/AHA stage C congestive heart failure: History of chronic systolic heart failure due to underlying ischemic cardiomyopathy. Chest x-ray at time of admission showed cardiomegaly and pulmonary vascular congestion. Acute on chronic left ventricular systolic heart failure. Echo on 04/29/2019 demonstrated segmental wall motion abnormalities with overall LVEF 25-30%. Continue diuretics, lisinopril, metoprolol succinate, nitrates. (3) Hypertension: Cardiovascular medications as noted above. (4) Diabetes mellitus type 2 with complications: Hemoglobin A1c was 8.5 on 04/15/2019. Fasting blood sugar today = 116. Continue Lantus/NovoLog per protocol. (5) Nausea & vomiting: Patient experiencing frequent nausea and vomiting as well as hiccups. No acute findings on CT of abdomen and pelvis 04/30.. Lipase normal. LFT's: Laboratory Tests 05/01/19 05:23 Total Bilirubin 1.6 H Direct Bilirubin 0.9 H AST 111 H ALT 135 H Alkaline Phosphatase 238 H LFT's were elevated about 2 weeks ago. Evaluation included US gallbladder, CT, MRCP. Follow. Consider peptic ulcer disease, gastroparesis, etc. Consider adverse effect of medications. Best to avoid EGD or other invasive procedures because of recent cardiac events. Tolerating clear liquid diet- try to advance. (6) DVT prophylaxis: SQ heparin. Ambulate as able. (7) Discharge planning issues: Anticipated return to [facility] under care of medical team there. Ongoing follow-up with Cardiology recommended. Subjective Recheck for multiple problems. Patient seen in their room around 1110. No chest pain or SOB. On clear liquid diet since yesterday. Ongoing hiccoughs, but no further nausea or vomiting. No abdominal pain. No diarrhea, melena, hematochezia. Review of Systems: Constitutional- no fever. Cardiac- as noted above. Pulmonary- no cough or SOB. GI- as noted above. - no urinary symptoms. Otherwise, as noted above. Physical Exam Constitutional: no acute distress Respiratory: no respiratory distress Auscultation: lungs clear to auscultation bilaterally Cardiovascular: Rate/Rhythm: regular rate and regular rhythm Heart Sounds: no gallop, no murmur and no cardiac rub Vessels: + JVD Extremities: + edema (trace pretibial); no calf tenderness Gastrointestinal (Abdomen): Inspection/Auscultation: normal bowel sounds; abdomen not distended Percussion/Palpation: abdomen soft; abdomen nontender (mild epigastric) and no guarding Skin: no rashes, warm and dry Psychiatric: Orientation: alert and oriented x 3 Results & Data Vital Signs (Past 12 Hours) Vital Signs Temp Pulse Resp BP BP Pulse Ox Pulse Ox 05/01/19 16:00 95 05/01/19 15:25 36.7 C 69 20 133/79 94 05/01/19 11:18 36.6 C 75 21 131/85 96 05/01/19 08:00 74 05/01/19 07:33 36.8 C 75 18 137/91 99 Laboratory Results 05/01/19 05:23 05/01/19 05:23
[2019-05-01] MEDS ORDERED: COUGH DROP (SUGAR FREE) LOZ 24 LOZ/1 BOX BUCCAL ONE (23:33)
[2019-05-02] MEDS: HEPARIN SOD 5,000 UNIT/0.5 ML VIAL SQ SCH (05:50)
[2019-05-02 07:13] LABS: Hematocrit (blood only) 38.4 % (42-52); Hemoglobin 12.5 g/dL (14.0-18.0); Mean Corpuscular Hemoglobin 26.5 pg (25-34); Mean Corpuscular Hgb Conc 32.6 g/dL (32-36); Mean Corpuscular Volume 81.5 fL (80-100); Mean Platelet Volume 11.3 fL (7.4-10.4); Nucleated RBC # (auto) 0.03 K/uL (0-0); Nucleated RBC % (auto) 0.6 %; Platelet Count 198 K/uL (130-400); RDW Coefficient of Variation 17.8 % (11.5-14.5); RDW Standard Deviation 52.2 fL (36.4-46.3); Red Blood Count 4.71 M/uL (4.7-6.1)
[2019-05-02] MEDS: INSULIN ASPART 100 UNITS/ML 3 ML PEN SC SCH (07:40)
[2019-05-02] MEDS: INSULIN GLARGINE SOLOSTAR 100 UNITS/ML 3 ML PEN SC SCH (07:41)
[2019-05-02 07:50] LABS: Albumin Globulin Ratio 0.7 (0.9-2); Albumin Level 3.1 gm/dl (3.4-5.0); BUN Creatinine Ratio 28.5 (10-20); Bilirubin Direct 1.3 mg/dl (0-0.2); Calcium 8.5 mg/dl (8.5-10.1); Creatinine Clr Calc Pharmacy 50.7 ml/min; Est GFR (African American) 60.3; Globulin 4.7 gm/dl (2.5-4.0); Potassium 4.2 mmol/L (3.5-5.1); Total Protein 7.8 gm/dl (6.4-8.2)
[2019-05-02] MEDS: ATORVASTATIN 40 MG TAB PO SCH (08:17)
[2019-05-02] MEDS: CLOPIDOGREL BISULFATE 75 MG TAB PO SCH (08:17)
[2019-05-02] MEDS: ALLOPURINOL 300 MG TAB PO SCH (08:17)
[2019-05-02] MEDS: PANTOprazole 40 MG TAB PO SCH (08:18)
[2019-05-02] MEDS: METOPROLOL SUCC 50MG EXT REL TAB PO SCH (08:18)
[2019-05-02] MEDS: BACLOFEN 10 MG TAB PO SCH (08:18)
[2019-05-02] MEDS: ASPIRIN 81 MG ECTAB PO SCH (08:19)
[2019-05-02] MEDS: ISOSORBIDE DINITRATE 10 MG TAB PO SCH (08:19)
--- NOTE | 2019-05-02 08:49 | Hospitalist Progress Note ---
Date of Service May 02, 2019 Assessment & Plan (1) Acute non-ST elevation myocardial infarction (NSTEMI): Known multivessel coronary artery disease, status post recent PCI of OM1 with drug-eluting stent. Presented with recurrent chest pain. Serum troponin elevated. Cardiac catheter demonstrated subacute stent thrombosis with 100% occlusion of the proximal OM1 stent. PCI with drug-eluting stent performed with good results. Continue aspirin, clopidogrel, metoprolol, lisinopril, nitrates. Hold statin due to elevated LFT's. (2) Acute on chronic systolic ACC/AHA stage C congestive heart failure: History of chronic systolic heart failure due to underlying ischemic cardiomyopathy. Chest x-ray at time of admission showed cardiomegaly and pulmonary vascular congestion. Acute on chronic left ventricular systolic heart failure. Echo on 04/29/2019 demonstrated segmental wall motion abnormalities with overall LVEF 25-30%. Continue diuretics, lisinopril, metoprolol succinate, nitrates. (3) Hypertension: Cardiovascular medications as noted above. (4) Diabetes mellitus type 2 with complications: Hemoglobin A1c was 8.5 on 04/15/2019. Usually uses 70/30 insulin. Metformin recently stopped because of CHF, abnormal LFT's, lactic acidosis. Received Lantus / Novolog per protocol. Fasting blood sugar today = 76. Transition back to 70/30 insulin. (5) Dyslipidemia: LDL-c 45 on 04/16/19. Received atorvastatin for recent cardiac events, but elevated LFT's as discussed below. Not 100% certain if elevated LFT's secondary to statin or not, but prudent to assume statin intolerance. DC atorvastatin. If LFT's improve, could consider trying another statin like rosuvastatin or another class like ezetimibe with caution. (6) Nausea & vomiting: Patient experiencing frequent nausea and vomiting as well as hiccups. No acute findings on CT of abdomen and pelvis 04/30. LFT's elevated as discussed below. Lipase normal. Recent US gallbladder, CT, MRCP. Consider peptic ulcer disease, gastroparesis, etc. Consider adverse effect of medications. On duloxetine which has fairly high incidence of GI side effects- taper and try to DC. Best to avoid EGD or other invasive procedures because of recent cardiac events. Diet advanced and tolerated. Ondansetron PRN for N/V. Baclofen PRN for hiccups. Consider gastric emptying scan if symptoms ongoing. (7) Abnormal liver function tests: Abnormal LFT's noted on 04/17/19. Total bilirubin peaked at 2.5. AST peaked at 960. ALT peaked at 656. Alk phos peaked at 256. Seen in consultation by GI. US demonstrated fatty liver and trace ascites. CT did not show any apparent hepatobiliary disease. MRCP showed normal biliary tract and pancreas. Acute hepatitis serologies negative. Abnormal LFT's attributed to shock liver from hypotension. Passive congestion of liver from CHF and statin intolerance also considered. LFT's improved. LFT's rechecked because of N&V: Laboratory Tests 05/01/19 05/02/19 05:23 06:54 Total Bilirubin 1.6 H 2.0 H Direct Bilirubin 0.9 H 1.3 H AST 111 H 134 H ALT 135 H 157 H Alkaline Phosphatase 238 H 302 H Patient was restarted on atorvastatin because of non-STEMI. Stop statin. Follow LFT's. Suggest follow-up GI consultation if LFT's do not improve. (8) Sleep apnea-like behavior: SCI guards report snoring and brief episodes of apnea while sleeping. May have sleep apnea. Suggest outpatient sleep study. (9) DVT prophylaxis: SQ heparin. Ambulate as able. (10) Discharge planning issues: Return to [facility] under care of medical team there. Ongoing follow-up with Cardiology recommended. Subjective Recheck for multiple problems. Patient seen in their room around 0830. No chest pain or SOB. No further nausea or vomiting. Hiccups improved. No abdominal pain. No diarrhea, melena, hematochezia. Review of Systems: Constitutional- no fever. Cardiac- as noted above. Pulmonary- no cough or SOB. GI- as noted above. - no urinary symptoms. Otherwise, as noted above. Physical Exam Constitutional: no acute distress Respiratory: no respiratory distress Auscultation: lungs clear to auscultation bilaterally Cardiovascular: Rate/Rhythm: regular rate and regular rhythm Heart Sounds: no gallop, no murmur and no cardiac rub Vessels: + JVD Extremities: + edema (trace pretibial); no calf tenderness Gastrointestinal (Abdomen): Inspection/Auscultation: normal bowel sounds; abdomen not distended Percussion/Palpation: abdomen soft; abdomen nontender and no guarding Skin: no rashes, warm and dry Psychiatric: Orientation: alert and oriented x 3 Results & Data Vital Signs (Past 12 Hours) Vital Signs Temp Pulse Resp BP Pulse Ox 05/02/19 07:56 36.9 C 68 19 137/86 95 05/02/19 03:17 36.7 C 69 18 123/85 98 05/01/19 23:42 36.6 C 73 19 121/85 96 Laboratory Results Laboratory Results - last 24 hr 05/01/19 05/01/19 05/01/19 11: 16:30 20:41 WBC RBC Hgb Hct MCV MCH MCHC RDW Std Deviation RDW Coeff of Maria Guadalupe Plt Count MPV Absolute Nucleated RBC Nucleated RBC % (auto) Sodium Potassium Chloride Carbon Dioxide Anion Gap BUN Creatinine Est Cr Clr Drug Dosing Est GFR ( Amer) Est GFR (Non-Af Amer) BUN/Creatinine Ratio Glucose POC Glucose 118 H 123 H 167 H Calcium Total Bilirubin Direct Bilirubin AST ALT Alkaline Phosphatase Total Protein Albumin Globulin Albumin/Globulin Ratio 05/02/19 05/02/19 05/02/19 06:54 06:54 07:36 WBC 4.60 L RBC 4.71 Hgb 12.5 L Hct 38.4 L MCV 81.5 MCH 26.5 MCHC 32.6 RDW Std Deviation 52.2 H RDW Coeff of Maria Guadalupe 17.8 H Plt Count 198 MPV 11.3 H Absolute Nucleated RBC 0.03 H Nucleated RBC % (auto) 0.6 Sodium 133 L Potassium 4.2 Chloride 100 Carbon Dioxide 23 Anion Gap 10.0 BUN 38 H Creatinine 1.32 Est Cr Clr Drug Dosing 50.7 Est GFR ( Amer) 60.3 Est GFR (Non-Af Amer) 52.0 BUN/Creatinine Ratio 28.5 H Glucose 100 H POC Glucose 76 Calcium 8.5 Total Bilirubin 2.0 H Direct Bilirubin 1.3 H AST 134 H ALT 157 H Alkaline Phosphatase 302 H Total Protein 7.8 Albumin 3.1 L Globulin 4.7 H Albumin/Globulin Ratio 0.7 L
[2019-05-02] MEDS ORDERED: DULOXETINE HCL 30 MG CAP PO SCH (09:00)
--- NOTE | 2019-05-02 09:06 | Cardiology Progress Note ---
Date of Service May 02, 2019 Assessment & Plan (1) Acute non-ST elevation myocardial infarction (NSTEMI): Patient no further chest pain overnight Still with hiccups overnight but no chest pain or discomfort. Patient on appropriate medical regimen currently including heart failure dire cted beta-iron, dual antiplatelet therapy, lisinopril, atorvastatin Would continue low-dose nitrates, diuretics as ordered Stable from cardiac standpoint (2) Elevated troponin: As above (3) Ischemic cardiomyopathy: Echocardiogram this admission slightly improved from prior admission Diffuse ischemic disease present with narrow vessel diabetic coronary artery disease Echocardiogram reflects old and inferior posterior infarct but no acute changes mild to moderate mitral insufficiency ejection fraction approximately 25% (4) Chest pain: (5) History of heart artery stent: (6) Hypertension: Subjective Patient seen and examined, chart, medications, telemetry reviewed. No chest pain or shortness of breath, still with hiccups. No further episodes of emesis. Hemodynamically stable Ate breakfast this morning Physical Exam Constitutional: + thin Eyes: PERRL, conjunctivae normal, anicteric sclerae ENMT: external ear and nose normal, oropharynx normal Neck: trachea midline, no thyromegaly Respiratory: normal respiratory effort, lungs clear to auscultation Auscultation: + diminished lung sounds Cardiovascular: Rate/Rhythm: regular rate and regular rhythm Heart Sounds: normal S1 and normal S2; no gallop and no murmur Palpation: normal PMI Vessels: normal carotid upstroke and radial pulses present; no JVD and no carotid bruit Extremities: no edema Gastrointestinal (Abdomen): normal bowel sounds, soft, nontender, no hepatosplenomegaly Musculoskeletal: no cyanosis or clubbing, extremities motor strength 5/5 Skin: no rashes, warm and dry Neurologic: PERRL, EOMI, accommodation nl, no face palsy, no dysarthria Psychiatric: A+Ox3, euthymic affect Results & Data Vital Signs (Past 12 Hours) Vital Signs Temp Pulse Resp BP Pulse Ox 05/02/19 07:56 36.9 C 68 19 137/86 95 05/02/19 03:17 36.7 C 69 18 123/85 98 05/01/19 23:42 36.6 C 73 19 121/85 96 (1) Chest pain Chest pain type: unspecified Qualified Code(s): R07.9 - Chest pain, unspecified
--- NOTE | 2019-05-02 09:57 | Discharge Summary ---
Date of Service Date of Admission: 04/26/19 Date of Discharge: 05/02/19 Admission HPI Per Admitting Provider Pt is 74 y/o M with PMH HTN, dyslipidemia, elevated liver functions, DM II, GERD, gout, CAD s/p stent to OM1 on 04/16/19, cardiomyopathy resented to ER from [facility] with c/o CP today. Patient with recent hospitalization 04/15/2019- 04/24/2019 for an STEMI, cardiomyopathy, fluid overload. Patient received stent to OM1. He was diuresed during that hospital admission. During that admission echo with EF<20%. Patient states was doing well past 2 days until this morning. Patient states this morning he was unpacking a bag when he developed left anterior chest pain which he describes as stabbing and rates a 10 out of 10 on pain scale. Also reports some left arm " funny feeling". Denies any shortness of breath, dizziness, diaphoresis, nausea, vomiting. He was given aspirin, 3 sublingual nitroglycerin with minimal improvement. Patient reports was given 1 spray nitro by EMS with some improvement of pain. Patient given morphine in ER and currently rates pain 7 out of 10 on pain scale and and currently describes as dull pain. Reports pain is worse with palpation. Denies pleuritic chest pain. Patient states this pain feels different than his and STEMI as today he has not had any shortness of breath, diaphoresis. Pt states no increased LE edema since discharge on 04/24/19. He states he has been taking his medications that he has been given at [facility]. Denies fever/chills, diarrhea, constipation, BACA, dizziness, syncope, vision changes, neck pain, orthopnea, palpitations, cough, sore throat, choking, otalgia, rhinorrhea, abdominal pain, paresthesias, weakness, extremity weakness, rashes, urinary symptoms. Principal Diagnosis acute non-ST elevation myocardial infarction (thrombosis OM1), s/p PCI with drug eluting stent OTHER ACUTE / NEW DIAGNOSES: elevated liver function tests possible sleep apnea Discharge Data Allergies Allergy/AdvReac Type Severity Reaction Status Date / Time Sulfa (Sulfonamide Allergy Mild Unknown Verified 04/18/19 10:56 Antibiotics) Penicillins Allergy Unknown . Verified 04/26/19 11:49 atorvastatin AdvReac Intermediate elevated Verified 05/02/19 09:13 LFT's Consultations 04/26/19 13:06 ED Decision to Admit Stat 04/26/19 16:22 Consult Cardiology Routine Procedures Performed Operation Date: 04/28/19 09:30 Actual Procedures s Cineradiography w/Routine Exam - Negrito Lozano MD p Drug Eluting Stent SGl Vessel - Negrito Lozano MD s Cath, Left with Cors and Vent - Negrito Lozano MD Ordered Studies 04/28/19 07:07 CL Cath Imgs for PACS use only Routine 04/30/19 12:40 CT abd pelvis wo con Urgent Hospital Course (1) Acute non-ST elevation myocardial infarction (NSTEMI): Known multivessel coronary artery disease, status post recent PCI of OM1 with drug-eluting stent. Presented with recurrent chest pain. Serum troponin elevated. Cardiac catheter demonstrated subacute stent thrombosis with 100% occlusion of the proximal OM1 stent. PCI with drug-eluting stent performed with good results. Continue aspirin, clopidogrel, metoprolol, lisinopril, nitrates. Hold statin due to elevated LFT's. (2) Acute on chronic systolic ACC/AHA stage C congestive heart failure: History of chronic systolic heart failure due to underlying ischemic cardiomyopathy. Chest x-ray at time of admission showed cardiomegaly and pulmonary vascular congestion. Acute on chronic left ventricular systolic heart failure. Echo on 04/29/2019 demonstrated segmental wall motion abnormalities with overall LVEF 25-30%. Continue diuretics, lisinopril, metoprolol succinate, nitrates. (3) Hypertension: Cardiovascular medications as noted above. (4) Diabetes mellitus type 2 with complications: Hemoglobin A1c was 8.5 on 04/15/2019. Usually uses 70/30 insulin. Metformin recently stopped because of CHF, abnormal LFT's, lactic acidosis. Received Lantus / Novolog per protocol. Fasting blood sugar day of discharge 76. Transition back to 70/30 insulin. (5) Dyslipidemia: LDL-c 45 on 04/16/19. Received atorvastatin for recent cardiac events, but elevated LFT's as discussed below. Not 100% certain if elevated LFT's secondary to statin or not, but prudent to assume statin intolerance. DC atorvastatin. If LFT's improve, could consider trying another statin like rosuvastatin or another class like ezetimibe with caution. (6) Nausea & vomiting: Patient experiencing frequent nausea and vomiting as well as hiccups. No acute findings on CT of abdomen and pelvis 04/30. LFT's elevated as discussed below. Lipase normal. Recent US gallbladder, CT, MRCP. Consider peptic ulcer disease, gastroparesis, etc. Consider adverse effect of medications. On duloxetine which has fairly high incidence of GI side effects- taper and try to DC. Discontinue alendronate. Best to avoid EGD or other invasive procedures because of recent cardiac events. Diet advanced and tolerated. Ondansetron PRN for N/V. Baclofen PRN for hiccups. Consider gastric emptying scan if symptoms ongoing. (7) Abnormal liver function tests: Abnormal LFT's noted on 04/17/19. Total bilirubin peaked at 2.5. AST peaked at 960. ALT peaked at 656. Alk phos peaked at 256. Seen in consultation by GI. US demonstrated fatty liver and trace ascites. CT did not show any apparent hepatobiliary disease. MRCP showed normal biliary tract and pancreas. Acute hepatitis serologies negative. Abnormal LFT's attributed to shock liver from hypotension. Passive congestion of liver from CHF and statin intolerance also considered. LFT's improved. LFT's rechecked because of N&V: Laboratory Tests 05/01/19 05/02/19 05:23 06:54 Total Bilirubin 1.6 H 2.0 H Direct Bilirubin 0.9 H 1.3 H AST 111 H 134 H ALT 135 H 157 H Alkaline Phosphatase 238 H 302 H Patient was restarted on atorvastatin because of non-STEMI. Stop statin. Stop acetaminophen. Follow LFT's. Suggest follow-up GI consultation if LFT's do not improve. (8) Sleep apnea-like behavior: SCI guards report snoring and brief episodes of apnea while sleeping. May have sleep apnea. Suggest outpatient sleep study. (9) DVT prophylaxis: SQ heparin. Ambulate as able. (10) Discharge planning issues: Returned to [facility] under care of medical team there. Ongoing follow-up with Cardiology recommended. Total Time Total Time Spent Total Time Spent (In Minutes): 50 Discharge Plan Discharge Items [facility]position[facility] Reason For Visit: chest pain Discharge Diagnosis: acute non-ST elevation myocardial infarction ischemic cardiomyopathy elevated LFT's possible sleep apnea Condition on Discharge: Fair Activity: As commented below Activity Comment: gradually increase activity as tolerated Non-emergency contact: Primary Care Provider, Hospitalist and Envelope Addresser Call non-emergency contact if: you have any medication questions and your symptoms worsen Follow-up/Referrals: Ned Roldan DO [Envelope Addresser] - SCICheyenne [Primary Care Provider] - Diet: Carb Consistent or DM2 and Heart Healthy Addtl Attending Provider Instructions: Please check comprehensive metabolic profile in 1 week. Please arrange for outpatient sleep study to rule out sleep apnea. Thank you for receiving this patient in transfer. Please call if you have any questions. Romaine Guzman Pending Studies at Discharge: No Stand-Alone Forms: Call Back Authorization, My [facility] Skilled Items Patient informed of condition?: Yes Discharge Level of Care: Other Communicable Disease: No Discharge Prognosis: Improving Lines: None Urinary Catheter: No Medications and DC Order Prescriptions: New baclofen 10 mg Tablet 10 mg PO Q8H PRN (Reason: hiccups) Qty: 10 RF: 0 isosorbide dinitrate 10 mg Tablet 10 mg PO [id number] Qty: 60 RF: 5 metoprolol succinate 50 mg Tablet Extended Release 24 Hr 75 mg PO BID Qty: 60 RF: 5 duloxetine 30 mg Capsule,Delayed Release(Dr/Ec) 30 mg PO QAM Qty: 30 RF: 5 polyethylene glycol 3350 [Miralax] 17 gram Powder In Packet 17 g PO DAILY PRN (Reason: constipation) Qty: 10 RF: 0 tramadol 50 mg Tablet 50 mg PO Q6H PRN (Reason: pain) Qty: 10 RF: 0 ondansetron 4 mg Tablet,Disintegrating 4 mg PO Q12H PRN (Reason: nausea and vomiting) Qty: 10 RF: 0 Continued nitroglycerin [Nitrostat] 0.4 mg Tablet, Sublingual 0.4 mg sublingual UD PRN (Reason: Chest Pain) RF: 0 aspirin 81 mg Tablet,Delayed Release (Dr/Ec) 81 mg PO QAM RF: 0 allopurinol 300 mg Tablet 150 mg PO QAM RF: 0 calcium carbonate-vitamin D3 [Calcium 600 + D(3)] 600 mg(1,500mg) -400 unit Tablet 1 tab PO QAM RF: 0 Hemorrhoidal Suppository 0.25 % Suppository 1 supp KS TID RF: 0 ranitidine HCl 150 mg Tablet 150 mg PO BID RF: 0 Humulin 70/30 U-100 Insulin 100 unit/mL (70-30) Suspension 20 unit SUBCUT QAM RF: 0 Humulin 70/30 U-100 Insulin 100 unit/mL (70-30) Suspension 28 unit SUBCUT QPM RF: 0 Humulin R Regular U-100 Insuln 100 unit/mL Solution 1 sliding scale dose SUBCUT BID RF: 0 furosemide 40 mg Tablet 40 mg PO QAM 30 Days Qty: 30 RF: 1 clopidogrel 75 mg Tablet 75 mg PO QAM 30 Days Qty: 30 RF: 1 lisinopril [Zestril] 5 mg Tablet 5 mg PO QAM 30 Days Qty: 30 RF: 1 pantoprazole [Protonix] 40 mg tablet,delayed release (DR/EC) 40 mg PO BID 30 Days Qty: 60 RF: 1 Discontinued duloxetine 60 mg Capsule,Delayed Release(Dr/Ec) 60 mg PO QAM RF: 0 alendronate 70 mg Tablet, Effervescent 70 mg PO SA RF: 0 acetaminophen 325 mg Tablet 325 mg PO BID RF: 0 carvedilol 12.5 mg Tablet 12.5 mg PO BID 30 Days Qty: 60 RF: 1 atorvastatin 20 mg Tablet 40 mg PO QAM Qty: 0 RF: 0 Admission Data Admit Date/Time: 04/27/19 01:35 Attending Provider: Romaine Guzman Admit Provider: Hudson Tabor Primary Care Provider: Cheyenne MERRILL Other Providers: Federico Lawson ; Hudson Tabor ; Geronimo Zhu
--- NOTE | 2019-05-02 10:41 | Communication Note ---
Date of Service: May 02, 2019 Verbal report given to physician at [facility].
== END 2019-05-02 12:44 | DRG 247 ==
LOC: ED 11:31 → 2N 11:31 → SUATTDRO 04-27 01:35 → 2E 04-27 02:29

== ENCOUNTER 2019-05-24 05:07 | Inpatient (IN) ==
[2019-05-24] MEDS ORDERED: DEXTROSE 10% 1,000 ML BAG IV ONE (05:15)
[2019-05-24] MEDS ORDERED: DEXTROSE 50% 50 ML SYRINGE IV ONE ×3 (05:15→05:49)
[2019-05-24] MEDS ORDERED: DEXTROSE 10% 1,000 ML IV SCH (05:30)
[2019-05-24 05:42] LABS: Eosinophils # (auto) 0.01 K/uL (0-0.5); Eosinophils % (auto) 0.3 %; Hematocrit (blood only) 35.9 % (42-52); Hemoglobin 11.8 g/dL (14.0-18.0); Lymphocytes # (auto) 0.49 K/uL (1.2-3.4); Lymphocytes % (auto) 15.4 %; Mean Corpuscular Hemoglobin 27.8 pg (25-34); Mean Corpuscular Hgb Conc 32.9 g/dL (32-36); Mean Corpuscular Volume 84.7 fL (80-100); Mean Platelet Volume 10.5 fL (7.4-10.4); Monocytes # (auto) 0.27 K/uL (0.11-0.59); Monocytes % (auto) 8.5 %; Neutrophils # (auto) 2.42 K/uL (1.4-6.5); Neutrophils % (auto) 75.8 %; Nucleated RBC # (auto) 0.02 K/uL (0-0); Nucleated RBC % (auto) 0.5 %; Platelet Count 226 K/uL (130-400); RDW Coefficient of Variation 19.5 % (11.5-14.5); RDW Standard Deviation 58.4 fL (36.4-46.3); Red Blood Count 4.24 M/uL (4.7-6.1); White Blood Count 3.19 K/uL (4.8-10.8)
[2019-05-24 05:53] LABS: Albumin Level 2.9 gm/dl (3.4-5.0); BUN Creatinine Ratio 28.1 (10-20); Calcium 8.7 mg/dl (8.5-10.1); Est GFR (Non-African American) 65.6; Magnesium 2.2 mg/dl (1.8-2.4); Potassium 2.6 mmol/L (3.5-5.1)
[2019-05-24 06:04] LABS: Albumin Globulin Ratio 0.6 (0.9-2); Bilirubin,Total 1.3 mg/dl (0.2-1); Globulin 4.6 gm/dl (2.5-4.0); Thyroid Stimulating Hormone 0.35 uIu/ml (0.300-4.500); Total Protein 7.5 gm/dl (6.4-8.2)
[2019-05-24] MEDS: POTASSIUM CHLORIDE / WTR 10 MEQ/100 ML PLCT IV SCH ×2 (06:41→10:15)
--- NOTE | 2019-05-24 07:54 | History & Physical Report ---
Date of Service May 24, 2019 Assessment & Plan (1) Hypothermia: Metabolic Encephalopathy Hypothermia Hypoglycemia --CT head:No acute intracranial abnormality. Atrophy and microvascular ischemic changes. --CT Neck:Trace prevertebral edema at C3 and C4. This is nonspecific and could b e chronic or due to an infectious process in the appropriate clinical setting. No fractures within the cervical spine. Degenerative changes within the cervical spine as described above. Trace right apical pleural fluid. Thyromegaly. Multiple bilateral parotid gland sialoliths. No inflammatory change to suggest a sialoadenitis. --Altered mental status secondary to hypoglycemia and hypothermia --Hypothermia likely secondary to hypoglycemia --Hypoglycemia likely secondary to insulin therapy precipitated by skipping meals --Empirically started on IV antibiotics --No obvious source of infection --Blood cultures pending --Continue IV fluids, bear hugger, neuro checks --Consult lock master Hypokalemia Likely secondary to hypoglycemia and poor oral intake Replace electrolytes as needed Monitor Right shoulder/Arm pain Neck pain CT neck as above Shoulder X ray: Mild osteoarthritis within the right shoulder. No fractures. Venous Doppler:No DVT within the right upper extremity. No known history of trauma Conservative management DM II Last A1C:8.5 Patient is on 70/30 and sliding scale at home We will need to readjust insulin dosing Monitor blood glucose levels closely Sliding scale insulin for now Pharmacy consulted to help with glycemic management On hypoglycemia protocol CAD S/P stent Continue aspirin, Plavix, isosorbide, lisinopril, metoprolol Currently not on statin secondary to transaminitis HTN Continue home medications Monitor Gout Continue allopurinol GERD Continue PPI Transaminitis Fatty liver Extensive work-up was done during prior admission Also evaluated by GI during prior admission Statin discontinued Avoid hepatotoxic agents as able Monitor LFTs Lactic acidosis Also noted on prior admission No obvious source of infection Trend levels DVT Px: Heparin SQ CODE STATUS Full Code Disposition: Expected discharge back to correctional facility when stable History of Present Illness Chief Complaint: Hypoglycemia Primary Care Provider: DESIRAE Quinn Patient is a 74 yr male with H/O CAD S/P stent, DM II, HTN, Hyperlipidemia, Gout, GERD, Fatty liver, lactic acidosis and other problems presents with altered mental status. Patient was unsure about the events that took place prior to admission. As per the staff and ER physician, patient was found to be hypoglycemic in 20s at the correctional facility. His last dose of insulin was yesterday at 5 PM. Patient was thought to have skipped his meal yesterday night. Patient's cellmate found him to be unconscious at 4 AM this morning and his temperature was 31 C rectally. Patient was given multiple doses of glucagon and multiple glucose tablets while at the correctional facility but his hypoglycemia persisted in 30s. Patient was brought to the ED for further evaluation. Patient was given D50 and was started on D10 drip. Patient was placed on Ladarius hugger on hypothermia improved. Patient is oriented while in ED and complains of neck pain and right shoulder pain. Imaging studies are negative for any acute fractures. He denied any chest pain, shortness of breath, dizziness, nausea, abdominal pain, fever, headache, change in vision. No known history of fall or head trauma. Allergies Allergy/AdvReac Type Severity Reaction Status Date / Time Sulfa (Sulfonamide Allergy Mild Unknown Verified 05/24/19 05:52 Antibiotics) Penicillins Allergy Unknown . Verified 05/24/19 05:52 atorvastatin AdvReac Intermediate elevated Verified 05/24/19 05:52 LFT's Home Medications Home Medications Medication Instructions Recorded Confirmed Type allopurinol 150 mg PO QAM 02/02/19 05/24/19 History aspirin 81 mg PO QAM 02/02/19 05/24/19 History calcium carbonate-vitamin D3 1 tab PO QAM 02/02/19 05/24/19 History [Calcium 600 + D(3)] nitroglycerin [Nitrostat] 0.4 mg SUBLINGUAL UD PRN 02/02/19 05/24/19 History Humulin 70/30 U-100 Insulin 20 unit SUBCUT QAM 04/16/19 05/24/19 History Humulin 70/30 U-100 Insulin 28 unit SUBCUT QPM 04/16/19 05/24/19 History Humulin R Regular U-100 Insuln 1 sliding scale dose SUBCUT BID 04/16/19 05/24/19 History ranitidine HCl 150 mg PO BID 04/16/19 05/24/19 History clopidogrel 75 mg PO QAM 30 Days #30 tab 04/24/19 05/24/19 Rx furosemide 40 mg PO QAM 30 Days #30 tab 04/24/19 05/24/19 Rx lisinopril [Zestril] 5 mg PO QAM 30 Days #30 tab 04/24/19 05/24/19 Rx pantoprazole [Protonix] 40 mg PO BID 30 Days #60 tab 04/24/19 05/24/19 Rx metoprolol succinate 75 mg PO BID #60 tab 05/02/19 05/24/19 Rx duloxetine 30 mg PO DAILY 05/24/19 05/24/19 History isosorbide dinitrate 10 mg PO BID 05/24/19 05/24/19 History mineral oil-petrolat,wht-water 1 applic TOPICAL BID 05/24/19 05/24/19 History [LubriSoft] Past Med/Surg History Medical History Abnormal liver function tests (Chronic) Anemia Cardiomyopathy (Chronic) Colon polyps (Chronic) Coronary artery disease (Chronic) Diabetes mellitus type 2 with complications (Chronic) Diverticulitis (Resolved) Dyslipidemia (Chronic) GERD (gastroesophageal reflux disease) (Chronic) Gout (Chronic) Hypertension (Chronic) Surgical History History of heart artery stent (Chronic) Status post appendectomy (Inactive) Status post splenectomy (Chronic) Family History Other Diabetes Social History Preferred Language: Belgian Communication Ability: Effective Visual Impairment: No Limitations 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: Normal Commercial Designer Required: No Beliefs That Will Affect Care: None Current Living Situation: Other Current Living Situation Comment: correction facility Other Information That Helps Us Care for You: No Feels Safe at Home: Yes Safety Concerns: Feels Safe At This Time Smoking Status: Former smoker Tobacco Type: cigarettes ; Do You Dip or Chew Tobacco: No ; Second Hand Exposure: No ; Tobacco Cessation Education Requested by Patient: No Hx Alcohol Use: No Hx Substance Use: No Review of Systems Review of Systems: All systems reviewed & are unremarkable except as noted in HPI & below Physical Exam Physical Exam: Physical Exam: Vitals signs as noted above General Appearance:Moderately built and nourished, no apparent distress Head: normocephalic, Atraumatic Eyes: normal inspection, EOMI Neck: supple, Trachea midline Respiratory/Chest: Normal breath sounds, CTA Cardiovascular: S1, S2, No murmur Abdomen/GI:Soft, Non tender, Bowel sounds present Extremities/Musculoskelatal:normal inspection, Trace pretibial edema Neurologic/Psych:AAOX3, grossly no focal neurological deficits, RUE swelling, tender Skin: normal color, warm Results & Data Vital Signs (Past 12 Hours) Vital Signs Temp Pulse Pulse Resp BP BP Pulse Ox 05/24/19 07:45 79 32 H 100 05/24/19 07:33 78 31 H 132/96 96 05/24/19 07:30 78 25 H 05/24/19 07:00 69 23 147/111 H 98 05/24/19 06:45 68 13 140/109 H 100 05/24/19 06:31 69 21 128/84 05/24/19 06:30 68 7 L 100 05/24/19 06:26 32 C L 67 18 128/95 100 05/24/19 06:16 70 29 H 128/95 05/24/19 06:15 67 16 100 05/24/19 06:01 66 15 131/87 100 05/24/19 06:00 64 25 H 05/24/19 05:53 31.8 C L 05/24/19 05:46 66 13 97/75 L 100 05/24/19 05:45 67 14 100 05/24/19 05:43 31.8 C L 05/24/19 05:33 59 L 17 123/80 100 05/24/19 05:31 100 05/24/19 05:30 59 L 16 100 05/24/19 05:15 76 10 L 149/96 H 100 05/24/19 05:11 68 12 142/88 H 100 Laboratory Results Short CBC 05/24/19 Range/Units 05:17 WBC 3.19 L (4.8-10.8) K/uL Hgb 11.8 L (14.0-18.0) g/dL Hct 35.9 L (42-52) % Plt Count 226 (130-400) K/uL BMP 05/24/19 05:17 Sodium 141 Potassium 2.6 L Chloride 107 Carbon Dioxide 28 BUN 31 H Creatinine 1.09 Glucose 31 L* Calcium 8.7 Liver Function 05/24/19 Range/Units 05:17 Total Bilirubin 1.3 H (0.2-1) mg/dl AST 33 (15-37) U/L ALT 32 (12-78) U/L Alkaline Phosphatase 189 H (45-117) U/L Albumin 2.9 L (3.4-5.0) gm/dl Urine 05/24/19 Range/Units 07:50 Urine Color Yellow Urine Appearance Clear (Clear) Urine pH 5.5 (4.5-7.5) Ur Specific Oil Trough 1.019 (1.000-1.030) Urine Protein Trace H (Negative) Urine Glucose (UA) 3+ H (Negative) Diagnostic Findings CT head: No acute intracranial abnormality. Atrophy and microvascular ischemic changes. Neck CT: 1. Trace prevertebral edema at C3 and C4. This is nonspecific and could be chronic or due to an infectious process in the appropriate clinical setting. 2. No fractures within the cervical spine. 3. Degenerative changes within the cervical spine as described above. 4. Trace right apical pleural fluid. 5. Thyromegaly. 6. Multiple bilateral parotid gland sialoliths. No inflammatory change to suggest a sialoadenitis. R shoulder X ray: Mild osteoarthritis within the right shoulder. No fractures. Medications Administered Home Medications Medication Instructions Recorded Confirmed allopurinol 150 mg PO QAM 02/02/19 05/24/19 aspirin 81 mg PO QAM 02/02/19 05/24/19 calcium carbonate-vitamin D3 1 tab PO QAM 02/02/19 05/24/19 [Calcium 600 + D(3)] nitroglycerin [Nitrostat] 0.4 mg SUBLINGUAL UD PRN 02/02/19 05/24/19 Humulin 70/30 U-100 Insulin 20 unit SUBCUT QAM 04/16/19 05/24/19 Humulin 70/30 U-100 Insulin 28 unit SUBCUT QPM 04/16/19 05/24/19 Humulin R Regular U-100 Insuln 1 sliding scale dose SUBCUT BID 04/16/19 05/24/19 ranitidine HCl 150 mg PO BID 04/16/19 05/24/19 duloxetine 30 mg PO DAILY 05/24/19 05/24/19 isosorbide dinitrate 10 mg PO BID 05/24/19 05/24/19 mineral oil-petrolat,wht-water 1 applic TOPICAL BID 05/24/19 05/24/19 [LubriSoft] Previous Rx's Medication Instructions Recorded clopidogrel 75 mg PO QAM 30 Days #30 tab 04/24/19 furosemide 40 mg PO QAM 30 Days #30 tab 04/24/19 lisinopril [Zestril] 5 mg PO QAM 30 Days #30 tab 04/24/19 pantoprazole [Protonix] 40 mg PO BID 30 Days #60 tab 04/24/19 metoprolol succinate 75 mg PO BID #60 tab 05/02/19 ECG Additional Comments: EKG: Sinus rhythm with occasional PVCs Left atrial enlargement Nonspecific ST and T wave abnormality (1) Hypothermia Encounter type: initial encounter Qualified Code(s): T68.XXXA - Hypothermia, initial encounter
--- NOTE | 2019-05-24 07:55 | CT Scan Report ---
HEAD CT NONCONTRAST CT DOSE: 1074.96 mGy.cm HISTORY: Altered mental status, hypothermia, hypoglycemia TECHNIQUE: Multiaxial CT images of the head were performed without the use of intravenous contrast. A utomated exposure control was utilized for this study. A dose lowering technique was utilized adheri ng to the principles of ALARA. Comparison: Head CT 05/24/2019. Findings: The paranasal sinuses and mastoid air cells are clear. The calvarium and skull base are int act. There is no mass, hematoma, midline shift, acute infarct. White matter hypodensity is nonspecifi c but suggestive of microvascular ischemic change. The ventricles and sulci demonstrate mild age-rela brooke involutional changes. Impression: No acute intracranial abnormality. Atrophy and microvascular ischemic changes. Electronically signed by: Valentin Zaman M.D. 05/24/2019 7:54 AM
[2019-05-24 08:00] LABS: Appearance Urine Clear (Clear); Bacteria Urine Automated Negative (Negative); Bilirubin Urine Negative (Negative); Blood Urine Negative (Negative); Color Urine Yellow; Epithelial Cell Urine Auto 0-5 /lpf (0-5); Glucose Urine UA 3+ (Negative); Ketones Urine Negative (Negative); Leukocyte Esterase Urine Negative (Negative); Nitrite Urine Negative (Negative); Protein Urine Trace (Negative); RBC Urine Automated 0-4 /hpf (0-4); Specific Gravity Urine 1.019 (1.000-1.030); Urobilinogen Urine Negative (Negative); WBC Urine Automated 0 /hpf (0-5); pH Urine 5.5 (4.5-7.5)
--- NOTE | 2019-05-24 08:28 | XRay Report ---
XR chest 1V portable HISTORY: weakness COMPARISON: Chest 05/01/2019. FINDINGS: No focal lung consolidations to suggest pneumonia. No pleural effusions. No pneumothorax. T he heart remains mildly enlarged. No evidence for pulmonary edema. IMPRESSION: Stable mild cardiomegaly. Electronically signed by: Valentin Zaman M.D. 05/24/2019 8:27 AM
--- NOTE | 2019-05-24 09:03 | Emergency Department Note ---
Entered by Levon Stanton acting as a scribe for History of Present Illness General Chief complaint: Hypoglycemia Stated complaint: hypoglycemia Source: RN notes reviewed Mode of arrival: EMS Limitations: other (HPI limited secondary to the patient's altered mental status/decreased responsiveness.) History of Present Illness The patient is a 74 y/o male who presents to the ED with an altered mental status. The patient presents to the ED via EMS with a BSG of 32 and 36. He was given 5 rounds of glucagon and an oral glucose without relief of his hypoglycemia. The patient was given D 50 upon arrival and is on a D 10 IV drip. The patient was found by his cellmate at 4am unconscious. Nursing staff notes the patient had a recent WI and is a type I DM. They notes he denies recent weight loss. HPI limited secondary to the patient's altered mental status/decreased responsiveness. Home Medications Home Medications Medication Instructions Recorded Confirmed Type allopurinol 150 mg PO QAM 02/02/19 05/24/19 History aspirin 81 mg PO QAM 02/02/19 05/24/19 History calcium carbonate-vitamin D3 1 tab PO QAM 02/02/19 05/24/19 History [Calcium 600 + D(3)] nitroglycerin [Nitrostat] 0.4 mg SUBLINGUAL UD PRN 02/02/19 05/24/19 History Humulin 70/30 U-100 Insulin 20 unit SUBCUT QAM 04/16/19 05/24/19 History Humulin 70/30 U-100 Insulin 28 unit SUBCUT QPM 04/16/19 05/24/19 History Humulin R Regular U-100 Insuln 1 sliding scale dose SUBCUT BID 04/16/19 05/24/19 History ranitidine HCl 150 mg PO BID 04/16/19 05/24/19 History clopidogrel 75 mg PO QAM 30 Days #30 tab 04/24/19 05/24/19 Rx furosemide 40 mg PO QAM 30 Days #30 tab 04/24/19 05/24/19 Rx lisinopril [Zestril] 5 mg PO QAM 30 Days #30 tab 04/24/19 05/24/19 Rx pantoprazole [Protonix] 40 mg PO BID 30 Days #60 tab 04/24/19 05/24/19 Rx metoprolol succinate 75 mg PO BID #60 tab 05/02/19 05/24/19 Rx LubriSoft 1 applic TOPICAL BID 05/24/19 05/24/19 History duloxetine 30 mg PO DAILY 05/24/19 05/24/19 History isosorbide dinitrate 10 mg PO BID 05/24/19 05/24/19 History heparin, porcine (PF) 5,000 unit SUBCUT Q12 #0 ml 05/25/19 Rx Allergies Allergy/AdvReac Type Severity Reaction Status Date / Time Sulfa (Sulfonamide Allergy Mild Unknown Verified 05/24/19 05:52 Antibiotics) Penicillins Allergy Unknown . Verified 05/24/19 05:52 atorvastatin AdvReac Intermediate elevated Verified 05/24/19 05:52 LFT's Past Med/Surg History Medical History Abnormal liver function tests (Chronic) Anemia Cardiomyopathy (Chronic) Colon polyps (Chronic) Coronary artery disease (Chronic) Diabetes mellitus type 2 with complications (Chronic) Diverticulitis (Resolved) Dyslipidemia (Chronic) GERD (gastroesophageal reflux disease) (Chronic) Gout (Chronic) Hypertension (Chronic) Surgical History History of heart artery stent (Chronic) Status post appendectomy (Inactive) Status post splenectomy (Chronic) Family History Other Diabetes Social History Preferred Language: Slovenian Communication Ability: Effective Visual Impairment: No Limitations 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: Normal Foot Specialist Required: No Beliefs That Will Affect Care: None Current Living Situation: Other Current Living Situation Comment: correction facility Other Information That Helps Us Care for You: No Feels Safe at Home: Yes Safety Concerns: Feels Safe At This Time Smoking Status: Former smoker Tobacco Type: cigarettes ; Do You Dip or Chew Tobacco: No ; Second Hand Exposure: No ; Tobacco Cessation Education Requested by Patient: No Hx Alcohol Use: No Hx Substance Use: No Review of Systems Other (ROS limited secondary to the patient's altered mental status/decreased responsiveness.) Physical Exam Vital Signs Vital Signs - 24 hr 05/24/19 05:11 05/24/19 05:15 05/24/19 05:30 Temperature Temperature Source Rectal Temperature - Source 2 Pulse Rate 68 76 59 L Pulse Rate [Right Finger] Pulse Rate from SpO2 Sensor 71 70 65 Pulse Rhythm Regular Pulse Rhythm [Right Finger] Pulse Strength Normal Pulse Strength [Right Finger] Respiratory Rate 12 10 L 16 Respiratory Effort / Characteristics Non-Labored Spontaneous Respiratory Depth Normal Blood Pressure 142/88 H 149/96 H Blood Pressure [Right Arm] Blood Pressure Mean 106 106 Blood Pressure Mean [Right Arm] Blood Pressure Position Lying Blood Pressure Position [Right Arm] Pulse Oximetry 100 100 100 Oxygen Delivery Method Room Air Sepsis Recent Fever Within 48 Hours No Sepsis Action Taken by Nursing No Action Required 05/24/19 05:31 05/24/19 05:33 05/24/19 05:43 Temperature 31.8 C L Temperature Source Rectal Rectal Temperature - Source 2 Pulse Rate 59 L Pulse Rate [Right Finger] Pulse Rate from SpO2 Sensor 63 Pulse Rhythm Pulse Rhythm [Right Finger] Pulse Strength Pulse Strength [Right Finger] Respiratory Rate 17 Respiratory Effort / Characteristics Respiratory Depth Blood Pressure 123/80 Blood Pressure [Right Arm] Blood Pressure Mean 97 Blood Pressure Mean [Right Arm] Blood Pressure Position Blood Pressure Position [Right Arm] Pulse Oximetry 100 100 Oxygen Delivery Method Room Air Sepsis Recent Fever Within 48 Hours Sepsis Action Taken by Nursing 05/24/19 05:45 05/24/19 05:46 05/24/19 05:53 Temperature 31.8 C L Temperature Source Rectal Rectal Temperature - Source 2 31.8 C L 31.8 C L Pulse Rate 67 66 Pulse Rate [Right Finger] Pulse Rate from SpO2 Sensor 67 65 Pulse Rhythm Pulse Rhythm [Right Finger] Pulse Strength Pulse Strength [Right Finger] Respiratory Rate 14 13 Respiratory Effort / Characteristics Respiratory Depth Blood Pressure 97/75 L Blood Pressure [Right Arm] Blood Pressure Mean 78 Blood Pressure Mean [Right Arm] Blood Pressure Position Blood Pressure Position [Right Arm] Pulse Oximetry 100 100 Oxygen Delivery Method Sepsis Recent Fever Within 48 Hours Sepsis Action Taken by Nursing 05/24/19 06:00 05/24/19 06:01 05/24/19 06:15 Temperature Temperature Source Rectal Temperature - Source 2 31.8 C L 31.8 C L 31.9 C L Pulse Rate 64 66 67 Pulse Rate [Right Finger] Pulse Rate from SpO2 Sensor 67 64 67 Pulse Rhythm Pulse Rhythm [Right Finger] Pulse Strength Pulse Strength [Right Finger] Respiratory Rate 25 H 15 16 Respiratory Effort / Characteristics Respiratory Depth Blood Pressure 131/87 Blood Pressure [Right Arm] Blood Pressure Mean 100 Blood Pressure Mean [Right Arm] Blood Pressure Position Blood Pressure Position [Right Arm] Pulse Oximetry 100 100 Oxygen Delivery Method Sepsis Recent Fever Within 48 Hours Sepsis Action Taken by Nursing 05/24/19 06:16 05/24/19 06:26 05/24/19 06:30 Temperature 32 C L Temperature Source Rectal Rectal Temperature - Source 2 31.9 C L 32.0 C L Pulse Rate 70 68 Pulse Rate [Right Finger] 67 Pulse Rate from SpO2 Sensor 69 68 Pulse Rhythm Pulse Rhythm [Right Finger] Regular Pulse Strength Pulse Strength [Right Finger] Normal Respiratory Rate 29 H 18 7 L Respiratory Effort / Characteristics Non-Labored Spontaneous Respiratory Depth Normal Blood Pressure 128/95 Blood Pressure [Right Arm] 128/95 Blood Pressure Mean 104 Blood Pressure Mean [Right Arm] 106 Blood Pressure Position Blood Pressure Position [Right Arm] Lying Pulse Oximetry 100 100 Oxygen Delivery Method Room Air Sepsis Recent Fever Within 48 Hours Sepsis Action Taken by Nursing 05/24/19 06:31 05/24/19 06:45 05/24/19 07:00 Temperature Temperature Source Rectal Temperature - Source 2 32.0 C L 32.1 C L 32.2 C L Pulse Rate 69 68 69 Pulse Rate [Right Finger] Pulse Rate from SpO2 Sensor 68 73 Pulse Rhythm Pulse Rhythm [Right Finger] Pulse Strength Pulse Strength [Right Finger] Respiratory Rate 21 13 23 Respiratory Effort / Characteristics Respiratory Depth Blood Pressure 128/84 140/109 H 147/111 H Blood Pressure [Right Arm] Blood Pressure Mean 92 124 116 Blood Pressure Mean [Right Arm] Blood Pressure Position Blood Pressure Position [Right Arm] Pulse Oximetry 100 98 Oxygen Delivery Method Sepsis Recent Fever Within 48 Hours Sepsis Action Taken by Nursing 05/24/19 07:30 05/24/19 07:33 05/24/19 07:45 Temperature Temperature Source Rectal Temperature - Source 2 32.6 C L 32.6 C L 32.8 C L Pulse Rate 78 78 79 Pulse Rate [Right Finger] Pulse Rate from SpO2 Sensor 117 H 77 Pulse Rhythm Pulse Rhythm [Right Finger] Pulse Strength Pulse Strength [Right Finger] Respiratory Rate 25 H 31 H 32 H Respiratory Effort / Characteristics Respiratory Depth Blood Pressure 132/96 Blood Pressure [Right Arm] Blood Pressure Mean 99 Blood Pressure Mean [Right Arm] Blood Pressure Position Blood Pressure Position [Right Arm] Pulse Oximetry 96 100 Oxygen Delivery Method Sepsis Recent Fever Within 48 Hours Sepsis Action Taken by Nursing 05/24/19 08:00 05/24/19 08:15 05/24/19 08:30 Temperature Temperature Source Rectal Temperature - Source 2 33.0 C L 33.2 C L 33.4 C L Pulse Rate 82 82 88 Pulse Rate [Right Finger] Pulse Rate from SpO2 Sensor 82 82 92 H Pulse Rhythm Pulse Rhythm [Right Finger] Pulse Strength Pulse Strength [Right Finger] Respiratory Rate 29 H 21 21 Respiratory Effort / Characteristics Respiratory Depth Blood Pressure 148/110 H Blood Pressure [Right Arm] Blood Pressure Mean 126 Blood Pressure Mean [Right Arm] Blood Pressure Position Blood Pressure Position [Right Arm] Pulse Oximetry 100 100 88 L Oxygen Delivery Method Sepsis Recent Fever Within 48 Hours Sepsis Action Taken by Nursing 05/24/19 08:31 Temperature Temperature Source Rectal Temperature - Source 2 33.4 C L Pulse Rate 87 Pulse Rate [Right Finger] Pulse Rate from SpO2 Sensor 87 Pulse Rhythm Pulse Rhythm [Right Finger] Pulse Strength Pulse Strength [Right Finger] Respiratory Rate 27 H Respiratory Effort / Characteristics Respiratory Depth Blood Pressure 159/109 H Blood Pressure [Right Arm] Blood Pressure Mean 115 Blood Pressure Mean [Right Arm] Blood Pressure Position Blood Pressure Position [Right Arm] Pulse Oximetry 100 Oxygen Delivery Method Sepsis Recent Fever Within 48 Hours Sepsis Action Taken by Nursing Vital signs reviewed. General: Acutely ill-appearing 74 y/o male, in no significant distress. HEENT: No scleral icterus, PERRLA, neck supple. Atraumatic. Left eye strabismus. Dry mucous membranes. Cardiovascular: Regular rate and rhythm, no extra sounds. Pulmonary: Clear to auscultation bilaterally, normal work of breathing. Abdomen: Obese, soft, nontender, nondistended, positive bowel sounds. Musculoskeletal: Atraumatic, no peripheral edema. Neurologic: Patient awake but disoriented. Not able to follow commands. Speech i s incomprehensible. Skin: Warm, dry, no rash Course Course 0519: Past medical records reviewed. The patient was evaluated in room B01. A complete history and physical exam was performed. 0528: The patient's repeat BSG is 12. 0609: After one amp, the patients BSG was 65. With an additional half, his BSG eitan to over 200. He was last given 28 unites of 70/30 around 5pm. 0654: Upon reevaluation, the patient is resting comfortably. I discussed laboratory and radiographic results with him. He verbalized agreement of the treatment plan. The patient will be evaluated for further management and care. 0749: I reviewed the patient's case with Dr. Zhu, [facility] Hospitalist. He will evaluate the patient for further management. Administered Medications Discontinued Medications Allopurinol (Zyloprim) 75 mg PO [facility] Stop: 06/24/19 08:59 Last Admin: 05/25/19 08:20 Dose: Not Given Documented by: [id number] Aspirin (Ecotrin Ectab) 81 mg PO [facility] Stop: 06/23/19 11:09 Last Admin: 05/25/19 08:19 Dose: Not Given Documented by: [id number] Admin: 05/24/19 12:49 Dose: 81 mg Documented by: [id number] Clopidogrel Bisulfate (Plavix) 75 mg PO [facility] Stop: 06/23/19 11:09 Last Admin: 05/25/19 08:20 Dose: Not Given Documented by: [id number] Admin: 05/24/19 12:49 Dose: 75 mg Documented by: [id number] Dextrose (Dextrose 50%) Confirm Administered Dose 100 ml IV .STK-MED ONE Stop: 05/24/19 05:16 Last Admin: 05/24/19 05:17 Dose: 100 ml Documented by: [id number] Dextrose (D10w) Confirm Administered Dose 1,000 ml IV .STK-MED ONE Stop: 05/24/19 05:16 Last Admin: 05/24/19 05:33 Dose: Not Given Documented by: [id number] Dextrose (Dextrose 50%) 50 ml IV NOW ONE Stop: 05/24/19 05:29 Last Admin: 05/24/19 05:32 Dose: 50 ml Documented by: [id number] Dextrose (Dextrose 50%) 25 ml IV ONCE ONE Stop: 05/24/19 05:50 Last Admin: 05/24/19 05:49 Dose: 25 ml Documented by: [id number] Dextrose (Dextrose 50%) 25 - 50 ml IV UD PRN; Protocol PRN Reason: Hypoglycemia Protocol Stop: 06/23/19 11:09 Last Admin: 05/25/19 08:10 Dose: 50 ml Documented by: [id number] Admin: 05/25/19 04:04 Dose: 50 ml Documented by: [id number] Admin: 05/25/19 01:36 Dose: 50 ml Documented by: [id number] Dextrose (Dextrose 50%) 50 ml IV NOW ONE Stop: 05/25/19 05:02 Last Admin: 05/25/19 05:25 Dose: 50 ml Documented by: [id number] Duloxetine HCl (Cymbalta) 30 mg PO DAILY [facility] Stop: 06/24/19 08:59 Last Admin: 05/25/19 08:19 Dose: Not Given Documented by: [id number] Famotidine (Pepcid) 10 mg PO BID [facility] Stop: 06/23/19 11:09 Last Admin: 05/25/19 08:19 Dose: Not Given Documented by: [id number] Admin: 05/24/19 21:25 Dose: 10 mg Documented by: [id number] Admin: 05/24/19 12:49 Dose: 10 mg Documented by: [id number] Heparin Sodium (Porcine) (Heparin Sodium (Porcine)) 5,000 units SQ Q12 [facility] Stop: 06/23/19 20:59 Last Admin: 05/25/19 08:19 Dose: Not Given Documented by: [id number] Admin: 05/24/19 21:26 Dose: 5,000 units Documented by: [id number] Cosigned by: [id number] Dextrose (D10w) 1,000 mls @ 125 mls/hr IV .Q8H [facility] Stop: 06/23/19 05:29 Last Infusion: 05/24/19 11:33 Dose: 0 mls/hr Documented by: [id number] Infusion: 05/24/19 06:08 Dose: 0 mls/hr Documented by: [id number] Admin: 05/24/19 05:33 Dose: 125 mls/hr Documented by: [id number] Potassium Chloride (K Nasim / Wtr) 10 meq in 100 mls @ 100 mls/hr IV Q1H [facility] Stop: 05/24/19 08:44 Last Infusion: 05/24/19 11:33 Dose: 0 mls/hr Documented by: [id number] Admin: 05/24/19 10:15 Dose: 100 mls/hr Documented by: [id number] Infusion: 05/24/19 07:41 Dose: 100 mls/hr Documented by: [id number] Admin: 05/24/19 06:41 Dose: 100 mls/hr Documented by: [id number] Potassium Chloride/Sodium Chloride (Normal Saline W/20 Meq Kcl) 20 meq in 1,000 mls @ 125 mls/hr IV .Q8H [facility] Stop: 05/25/19 03:59 Last Infusion: 05/24/19 23:20 Dose: 0 mls/hr Documented by: [id number] Admin: 05/24/19 11:54 Dose: 75 mls/hr Documented by: [id number] Metronidazole (Flagyl) 500 mg in 100 mls @ 100 mls/hr IV Q8H NICHOL[facility]; Protocol Stop: 05/26/19 11:59 Last Infusion: 05/25/19 05:20 Dose: 0 mls/hr Documented by: [id number] Admin: 05/25/19 04:13 Dose: 100 mls/hr Documented by: [id number] Infusion: 05/24/19 20:30 Dose: 0 mls/hr Documented by: [id number] Admin: 05/24/19 19:20 Dose: 100 mls/hr Documented by: [id number] Infusion: 05/24/19 12:57 Dose: 0 mls/hr Documented by: [id number] Admin: 05/24/19 11:54 Dose: 100 mls/hr Documented by: [id number] Cefepime HCl 2,000 mg/ Syringe 20 mls @ 5 mls/min IV Q8H [facility] Stop: 05/26/19 12:59 Last Admin: 05/25/19 04:14 Dose: 5 mls/min Documented by: [id number] Admin: 05/24/19 21:12 Dose: 5 mls/min Documented by: [id number] Admin: 05/24/19 12:49 Dose: 5 mls/min Documented by: [id number] Lactated Ringer's (Lr) 1,000 mls @ 75 mls/hr IV .[id number] ONE Stop: 05/25/19 11:29 Last Infusion: 05/25/19 03:00 Dose: 0 mls/hr Documented by: [id number] Admin: 05/24/19 22:52 Dose: 75 mls/hr Documented by: [id number] Albumin Human (Albumin 25%) 50 mls @ 50 mls/hr IV ONE ONE Stop: 05/24/19 23:46 Last Infusion: 05/25/19 00:48 Dose: 0 mls/hr Documented by: [id number] Admin: 05/24/19 23:41 Dose: 50 mls/hr Documented by: [id number] Promethazine HCl 12.5 mg/ (Sodium Chloride) 50.5 mls @ 202 mls/hr IV Q6H PRN PRN Reason: Nausea And Vomiting Stop: 06/23/19 22:50 Last Infusion: 05/24/19 23:30 Dose: 0 mls/hr Documented by: [id number] Admin: 05/24/19 23:08 Dose: 202 mls/hr Documented by: [id number] Dextrose/Lactated Ringer's (D5w And Lactated Ringers) 1,000 mls @ 100 mls/hr IV .Q10H [facility] Stop: 06/24/19 02:44 Last Infusion: 05/25/19 05:56 Dose: 0 mls/hr Documented by: [id number] Admin: 05/25/19 02:54 Dose: 75 mls/hr Documented by: [id number] Insulin Human Regular 5 units/ (Syringe) 5 mls @ 0 mls/hr IV ONE STA Stop: 05/25/19 05:07 Last Admin: 05/25/19 05:19 Dose: 1 mls/hr Documented by: [id number] Cosigned by: [id number] Albumin Human (Albumin 25%) 50 mls @ 50 mls/hr IV ONE ONE Stop: 05/25/19 06:05 Last Infusion: 05/25/19 06:34 Dose: 0 mls/hr Documented by: [id number] Admin: 05/25/19 05:28 Dose: 50 mls/hr Documented by: [id number] Dextrose/Sodium Chloride (D5w And Nss) 1,000 mls @ 100 mls/hr IV .Q10H [facility] Stop: 06/24/19 05:14 Last Admin: 05/25/19 05:18 Dose: 100 mls/hr Documented by: [id number] Daptomycin 275 mg/ Syringe 5.5 mls @ 2.75 mls/min IV Q24H [facility]; Protocol Stop: 06/04/19 05:59 Last Admin: 05/25/19 05:54 Dose: 2.75 mls/min Documented by: [id number] Insulin Aspart (Novolog Flexpen) 0 units SC ACHS [facility] Stop: 06/23/19 16:29 Last Admin: 05/25/19 08:20 Dose: Not Given Documented by: [id number] Cosigned by: [id number] Admin: 05/24/19 21:26 Dose: Not Given Documented by: [id number] Cosigned by: [id number] Admin: 05/24/19 16:54 Dose: 4 units Documented by: [id number] Cosigned by: [id number] Insulin Aspart (Novolog Flexpen) 0 units SC 0200 ONE Stop: 05/25/19 02:01 Last Admin: 05/25/19 01:46 Dose: Not Given Documented by: [id number] Cosigned by: [id number] Insulin Glargine (Lantus Solostar Pen) 0 units SC BID [facility]; Protocol Stop: 06/23/19 16:59 Last Admin: 05/25/19 08:19 Dose: Not Given Documented by: [id number] Cosigned by: [id number] Admin: 05/24/19 16:54 Dose: Not Given Documented by: [id number] Cosigned by: [id number] Ioversol (Optiray 320 125ml) 116 ml IV ONCE PRN PRN Reason: Interaction Checking Stop: 05/29/19 03:40 Last Admin: 05/25/19 03:42 Dose: 1 ml Documented by: [id number] Isosorbide Dinitrate (Isordil) 10 mg PO BID@0700,1200 [facility] Stop: 06/23/19 11:59 Last Admin: 05/24/19 14:11 Dose: 10 mg Documented by: [id number] Lisinopril (Zestril) 5 mg PO QAM [facility] Stop: 06/23/19 11:09 Last Admin: 05/24/19 12:49 Dose: 5 mg Documented by: [id number] Metoprolol Succinate (Toprol Xl) 75 mg PO BID [facility] Stop: 06/23/19 11:09 Last Admin: 05/24/19 21:28 Dose: 75 mg Documented by: [id number] Admin: 05/24/19 12:49 Dose: 75 mg Documented by: [id number] Morphine Sulfate (Morphine Sulfate) 2 mg IV NOW [facility] Stop: 05/25/19 03:29 Last Admin: 05/25/19 04:27 Dose: Not Given Documented by: [id number] Ondansetron HCl (Zofran) 4 mg IV Q6H PRN PRN Reason: Nausea Stop: 06/23/19 11:09 Last Admin: 05/24/19 21:11 Dose: 4 mg Documented by: [id number] Pantoprazole Sodium (Protonix) 40 mg PO BID [facility] Stop: 06/23/19 11:09 Last Admin: 05/25/19 08:20 Dose: Not Given Documented by: [id number] Admin: 05/24/19 21:25 Dose: 40 mg Documented by: [id number] Admin: 05/24/19 12:49 Dose: 40 mg Documented by: [id number] Potassium Chloride (Klor-Con M20) 40 meq PO NOW STA Stop: 05/24/19 11:11 Last Admin: 05/24/19 12:57 Dose: 40 meq Documented by: [id number] Potassium Chloride (Klor-Con M20) 40 meq PO NOW STA Stop: 05/24/19 18:50 Last Admin: 05/24/19 19:20 Dose: 40 meq Documented by: [id number] Sodium Bicarbonate (Sodium Bicarbonate 8.4%) 50 meq IV NOW STA Stop: 05/25/19 04:58 Last Admin: 05/25/19 05:20 Dose: 50 meq Documented by: [id number] Critical Care Time Critical Care Time: Yes Total Critical Care Time: 45 I have personally spent 45 minutes of critical care time in the direct management of this patient. This includes bedside care, interpretation of diagnostic studies, and testing, discussion with consultants, patient, and family members, and other required patient management activities. This 45 leila sarah is in excess of all separately billable procedures. Medical Decision Making Differential Diagnosis Differential diagnoses includes but is not limited to toxic, metabolic, infectious, traumatic, cardiac, neurologic, hematologic, psychiatric and inflammatory etiologies. Medical Records Attestation: I reviewed the patient's medical records. Home Medications Current Medication List: was personally reviewed by me Laboratory Data Attestation: I reviewed the patient's lab results. Result diagrams: 05/25/19 04:20 05/25/19 07:53 Lab Results 05/24/19 05/24/19 05/24/19 Range/Units 05:14 05:15 05:17 WBC 3.19 L (4.8-10.8) K/uL RBC 4.24 L (4.7-6.1) M/uL Hgb 11.8 L (14.0-18.0) g/dL Hct 35.9 L (42-52) % MCV 84.7 (80-100) fL MCH 27.8 (25-34) pg MCHC 32.9 (32-36) g/dL RDW Std Deviation 58.4 H (36.4-46.3) fL RDW Coeff of Maria Guadalupe 19.5 H (11.5-14.5) % Plt Count 226 (130-400) K/uL MPV 10.5 H (7.4-10.4) fL Immature Gran % (Auto) 0.0 % Neut % (Auto) 75.8 % Lymph % (Auto) 15.4 % [place] % (Auto) 8.5 % Eos % (Auto) 0.3 % Baso % (Auto) 0.0 % Immature Gran # (Auto) 0.00 (0.00-0.02) K/uL Neut # (Auto) 2.42 (1.4-6.5) K/uL Lymph # (Auto) 0.49 L (1.2-3.4) K/uL [place] # (Auto) 0.27 (0.11-0.59) K/uL Eos # (Auto) 0.01 (0-0.5) K/uL Baso # (Auto) 0.00 (0-0.2) K/uL Absolute Nucleated RBC 0.02 H (0-0) K/uL Nucleated RBC % (auto) 0.5 % Sodium (136-145) mmol/L Potassium (3.5-5.1) mmol/L Chloride (98-107) mmol/L Carbon Dioxide (21-32) mmol/L Anion Gap (3-11) BUN (7-18) mg/dl Creatinine (0.6-1.4) mg/dl Est Cr Clr Drug Dosing ml/min Est GFR ( Amer) Est GFR (Non-Af Amer) BUN/Creatinine Ratio (10-20) Glucose (70-99) mg/dl POC Glucose 32 L* 36 L* (70-99) Lactate (0.4-2.0) mmol/L Calcium (8.5-10.1) mg/dl Magnesium (1.8-2.4) mg/dl Total Bilirubin (0.2-1) mg/dl AST (15-37) U/L ALT (12-78) U/L Alkaline Phosphatase (45-117) U/L Total Protein (6.4-8.2) gm/dl Albumin (3.4-5.0) gm/dl Globulin (2.5-4.0) gm/dl Albumin/Globulin Ratio (0.9-2) TSH (0.300-4.500) uIu/ml Urine Color Urine Appearance (Clear) Urine pH (4.5-7.5) Ur Specific [place] (1.000-1.030) Urine Protein (Negative) Urine Glucose (UA) (Negative) Urine Ketones (Negative) Urine Blood (Negative) Urine Nitrite (Negative) Urine Bilirubin (Negative) Urine Urobilinogen (Negative) Ur Leukocyte Esterase (Negative) Urine WBC (Auto) (0-5) /hpf Urine RBC (Auto) (0-4) /hpf U Hyaline Cast (Auto) (0-5) /lpf U Epithel Cells (Auto) (0-5) /lpf Urine Bacteria (Auto) (Negative) 05/24/19 05/24/19 05/24/19 Range/Units 05:17 05:26 05:46 WBC (4.8-10.8) K/uL RBC (4.7-6.1) M/uL Hgb (14.0-18.0) g/dL Hct (42-52) % MCV (80-100) fL MCH (25-34) pg MCHC (32-36) g/dL RDW Std Deviation (36.4-46.3) fL RDW Coeff of Maria Guadalupe (11.5-14.5) % Plt Count (130-400) K/uL MPV (7.4-10.4) fL Immature Gran % (Auto) % Neut % (Auto) % Lymph % (Auto) % [place] % (Auto) % Eos % (Auto) % Baso % (Auto) % Immature Gran # (Auto) (0.00-0.02) K/uL Neut # (Auto) (1.4-6.5) K/uL Lymph # (Auto) (1.2-3.4) K/uL [place] # (Auto) (0.11-0.59) K/uL Eos # (Auto) (0-0.5) K/uL Baso # (Auto) (0-0.2) K/uL Absolute Nucleated RBC (0-0) K/uL Nucleated RBC % (auto) % Sodium 141 (136-145) mmol/L Potassium 2.6 L (3.5-5.1) mmol/L Chloride 107 (98-107) mmol/L Carbon Dioxide 28 (21-32) mmol/L Anion Gap 6.0 (3-11) BUN 31 H (7-18) mg/dl Creatinine 1.09 (0.6-1.4) mg/dl Est Cr Clr Drug Dosing 67.0 ml/min Est GFR ( Amer) 76.0 Est GFR (Non-Af Amer) 65.6 BUN/Creatinine Ratio 28.1 H (10-20) Glucose 31 L* (70-99) mg/dl POC Glucose 12 L* 65 L* (70-99) Lactate (0.4-2.0) mmol/L Calcium 8.7 (8.5-10.1) mg/dl Magnesium 2.2 (1.8-2.4) mg/dl Total Bilirubin 1.3 H (0.2-1) mg/dl AST 33 (15-37) U/L ALT 32 (12-78) U/L Alkaline Phosphatase 189 H (45-117) U/L Total Protein 7.5 (6.4-8.2) gm/dl Albumin 2.9 L (3.4-5.0) gm/dl Globulin 4.6 H (2.5-4.0) gm/dl Albumin/Globulin Ratio 0.6 L (0.9-2) TSH 0.350 (0.300-4.500) uIu/ml Urine Color Urine Appearance (Clear) Urine pH (4.5-7.5) Ur Specific [place] (1.000-1.030) Urine Protein (Negative) Urine Glucose (UA) (Negative) Urine Ketones (Negative) Urine Blood (Negative) Urine Nitrite (Negative) Urine Bilirubin (Negative) Urine Urobilinogen (Negative) Ur Leukocyte Esterase (Negative) Urine WBC (Auto) (0-5) /hpf Urine RBC (Auto) (0-4) /hpf U Hyaline Cast (Auto) (0-5) /lpf U Epithel Cells (Auto) (0-5) /lpf Urine Bacteria (Auto) (Negative) 05/24/19 05/24/19 05/24/19 Range/Units 06:06 06:44 07:44 WBC (4.8-10.8) K/uL RBC (4.7-6.1) M/uL Hgb (14.0-18.0) g/dL Hct (42-52) % MCV (80-100) fL MCH (25-34) pg MCHC (32-36) g/dL RDW Std Deviation (36.4-46.3) fL RDW Coeff of Maria Guadalupe (11.5-14.5) % Plt Count (130-400) K/uL MPV (7.4-10.4) fL Immature Gran % (Auto) % Neut % (Auto) % Lymph % (Auto) % [place] % (Auto) % Eos % (Auto) % Baso % (Auto) % Immature Gran # (Auto) (0.00-0.02) K/uL Neut # (Auto) (1.4-6.5) K/uL Lymph # (Auto) (1.2-3.4) K/uL [place] # (Auto) (0.11-0.59) K/uL Eos # (Auto) (0-0.5) K/uL Baso # (Auto) (0-0.2) K/uL Absolute Nucleated RBC (0-0) K/uL Nucleated RBC % (auto) % Sodium (136-145) mmol/L Potassium (3.5-5.1) mmol/L Chloride (98-107) mmol/L Carbon Dioxide (21-32) mmol/L Anion Gap (3-11) BUN (7-18) mg/dl Creatinine (0.6-1.4) mg/dl Est Cr Clr Drug Dosing ml/min Est GFR ( Amer) Est GFR (Non-Af Amer) BUN/Creatinine Ratio (10-20) Glucose (70-99) mg/dl POC Glucose 255 H 235 H 204 H (70-99) Lactate (0.4-2.0) mmol/L Calcium (8.5-10.1) mg/dl Magnesium (1.8-2.4) mg/dl Total Bilirubin (0.2-1) mg/dl AST (15-37) U/L ALT (12-78) U/L Alkaline Phosphatase (45-117) U/L Total Protein (6.4-8.2) gm/dl Albumin (3.4-5.0) gm/dl Globulin (2.5-4.0) gm/dl Albumin/Globulin Ratio (0.9-2) TSH (0.300-4.500) uIu/ml Urine Color Urine Appearance (Clear) Urine pH (4.5-7.5) Ur Specific [place] (1.000-1.030) Urine Protein (Negative) Urine Glucose (UA) (Negative) Urine Ketones (Negative) Urine Blood (Negative) Urine Nitrite (Negative) Urine Bilirubin (Negative) Urine Urobilinogen (Negative) Ur Leukocyte Esterase (Negative) Urine WBC (Auto) (0-5) /hpf Urine RBC (Auto) (0-4) /hpf U Hyaline Cast (Auto) (0-5) /lpf U Epithel Cells (Auto) (0-5) /lpf Urine Bacteria (Auto) (Negative) 05/24/19 05/24/19 05/24/19 Range/Units 07:50 08:44 09:05 WBC (4.8-10.8) K/uL RBC (4.7-6.1) M/uL Hgb (14.0-18.0) g/dL Hct (42-52) % MCV (80-100) fL MCH (25-34) pg MCHC (32-36) g/dL RDW Std Deviation (36.4-46.3) fL RDW Coeff of Maria Guadalupe (11.5-14.5) % Plt Count (130-400) K/uL MPV (7.4-10.4) fL Immature Gran % (Auto) % Neut % (Auto) % Lymph % (Auto) % [place] % (Auto) % Eos % (Auto) % Baso % (Auto) % Immature Gran # (Auto) (0.00-0.02) K/uL Neut # (Auto) (1.4-6.5) K/uL Lymph # (Auto) (1.2-3.4) K/uL [place] # (Auto) (0.11-0.59) K/uL Eos # (Auto) (0-0.5) K/uL Baso # (Auto) (0-0.2) K/uL Absolute Nucleated RBC (0-0) K/uL Nucleated RBC % (auto) % Sodium (136-145) mmol/L Potassium (3.5-5.1) mmol/L Chloride (98-107) mmol/L Carbon Dioxide (21-32) mmol/L Anion Gap (3-11) BUN (7-18) mg/dl Creatinine (0.6-1.4) mg/dl Est Cr Clr Drug Dosing ml/min Est GFR ( Amer) Est GFR (Non-Af Amer) BUN/Creatinine Ratio (10-20) Glucose (70-99) mg/dl POC Glucose 178 H (70-99) Lactate 2.8 H* (0.4-2.0) mmol/L Calcium (8.5-10.1) mg/dl Magnesium (1.8-2.4) mg/dl Total Bilirubin (0.2-1) mg/dl AST (15-37) U/L ALT (12-78) U/L Alkaline Phosphatase (45-117) U/L Total Protein (6.4-8.2) gm/dl Albumin (3.4-5.0) gm/dl Globulin (2.5-4.0) gm/dl Albumin/Globulin Ratio (0.9-2) TSH (0.300-4.500) uIu/ml Urine Color Yellow Urine Appearance Clear (Clear) Urine pH 5.5 (4.5-7.5) Ur Specific [place] 1.019 (1.000-1.030) Urine Protein Trace H (Negative) Urine Glucose (UA) 3+ H (Negative) Urine Ketones Negative (Negative) Urine Blood Negative (Negative) Urine Nitrite Negative (Negative) Urine Bilirubin Negative (Negative) Urine Urobilinogen Negative (Negative) Ur Leukocyte Esterase Negative (Negative) Urine WBC (Auto) 0 (0-5) /hpf Urine RBC (Auto) 0-4 (0-4) /hpf U Hyaline Cast (Auto) 1-5 (0-5) /lpf U Epithel Cells (Auto) 0-5 (0-5) /lpf Urine Bacteria (Auto) Negative (Negative) Imaging Data Radiologist's Impression: Radiology results as stated below per my review and the radiologist's interpretation: XR chest 1V portable HISTORY: weakness COMPARISON: Chest 05/01/2019. FINDINGS: No focal lung consolidations to suggest pneumonia. No pleural effusions. No pneumothorax. The heart remains mildly enlarged. No evidence for pulmonary edema. IMPRESSION: Stable mild cardiomegaly. Electronically signed by: Valentin Zaman M.D. 05/24/2019 8:[address] CT DOSE: 1074.96 mGy.cm HISTORY: Altered mental status, hypothermia, hypoglycemia TECHNIQUE: Multiaxial CT images of the head were performed without the use of intravenous contrast. Automated exposure control was utilized for this study. A dose lowering technique was utilized adhering to the principles of ALARA. Comparison: Head CT 05/24/2019. Findings: The paranasal sinuses and mastoid air cells are clear. The calvarium and skull base are intact. There is no mass, hematoma, midline shift, acute infarct. White matter hypodensity is nonspecific but suggestive of microvascular ischemic change. The ventricles and sulci demonstrate mild age-related involutional changes. Impression: No acute intracranial abnormality. Atrophy and microvascular ischemic changes. Electronically signed by: Valentin Zaman M.D. 05/24/2019 7:54 AM ECG Data Attestation: I personally reviewed and interpreted this ECG as follows: Indication: + altered mental status Rate (beats per minute): 69 Rhythm: + sinus rhythm ECG Intervals/blocks: + Normal QT-c ECG Findings: + PVCs and + Other (T-wave flattening laterally. P-wave abnormality in the anterior leads.); no PACs Comparison ECG Date: from (04/29/2019) Change: the following changes noted Additional Comments: PVC is new. Blood Pressure Blood Pressure Findings: Elevated blood pressure Blood Pressure Disposition: further management by hospitalist MDM Narrative This patient was evaluated and appeared to be confused. IV access was obtained and laboratory work was drawn. Patient was placed on the pvc monitor. Repeat glucose is noted to be at 31. Patient was given 1 amp of D50 in the emergency department in addition to what he received prehospital. He was maintained on a D10 drip. Repeat glucose was performed and the patient is again found to be hypoglycemic at 65. Patient was then given an additional amp of D50. CT imaging of the head was performed and is negative for acute intracrani al abnormality. Patient is noted to be dehydrated with a creatinine of 2.19. Nursing did contact the [facility] who states he received his proper dose of insulin. The etiology of the hypoglycemia is unclear unless the patient somehow received additional insulin. Patient was discussed with the hospitalist service will evaluate the patient for admission and further management. Impression & Plan Hypoglycemia, Hypothermia, Acute hypokalemia, AMS (altered mental status) Discharge Plan Visit Data *Final* Discharge Date/Time: 05/24/19 10:34 Chief Complaint: Hypoglycemia Stated Complaint: hypoglycemia ED Provider: Sobeida Gamez Discharge Problem: Hypoglycemia, Hypothermia, Acute hypokalemia, AMS (altered mental status) Patient Disposition: Admitted As Inpatient Discharge Instructions Interventions: ED Discharge Assessment Last Done: 05/24/19 10:34 Discharge Problem: Hypothermia Qualifiers: Encounter type: initial encounter Qualified Code(s): T68.XXXA - Hypothermia, initial encounter AMS (altered mental status) Qualifiers: Altered mental status type: unspecified Qualified Code(s): R41.82 - Altered mental status, unspecified The scribe's documentation has been prepared under my direction and personally reviewed by me in its entirety. I confirm that the note above accurately reflects all work, treatment, procedures, and medical decision making performed by me.
--- NOTE | 2019-05-24 10:09 | CT Scan Report ---
CT soft tissue neck wo con HISTORY: neck pain TECHNIQUE: Multiaxial CT images of the neck were performed without the use of intravenous contrast. COMPARISON STUDY: None. FINDINGS: The visualized paranasal sinuses and mastoid air cells are clear. Mild reversal the normal lordotic curvature of the cervical spine with moderate degenerative disc disease from C4 through C7. No fractures identified. The C1-C2 interval is intact. The epiglottis is normal in thickness. Trace p aravertebral edema at the C3 and C4 levels measuring 3 mm in thickness. Otherwise, the contours of th e hypopharynx are within normal limits. Trace right apical pleural fluid as noted. No pneumothorax. T he thyroid gland is moderately enlarged. No mass or lymphadenopathy identified on this noncontrast st udy. The submandibular glands are symmetric. There are multiple punctate bilateral parotid gland calc ifications likely representing sialoliths. Metallic artifact from the patient's dental hardware obscu res the oropharynx. No inflammatory change surrounding the parotid glands. IMPRESSION: 1. Trace prevertebral edema at C3 and C4. This is nonspecific and could be chronic or due to an infec tious process in the appropriate clinical setting. 2. No fractures within the cervical spine. 3. Degenerative changes within the cervical spine as described above. 4. Trace right apical pleural fluid. 5. Thyromegaly. 6. Multiple bilateral parotid gland sialoliths. No inflammatory change to suggest a sialoadenitis. Electronically signed by: Valentin Zaman M.D. 05/24/2019 10:08 AM
--- NOTE | 2019-05-24 10:27 | XRay Report ---
RIGHT SHOULDER 3 VIEWS HISTORY: right shoulder pain COMPARISON: None. FINDINGS: There is no fracture or dislocation. Soft tissues are unremarkable. The right clavicle is i ntact. Mild AC joint arthrosis. Mild cartilage space narrowing at the glenohumeral joint with tiny ma rginal osteophytes. This is also consistent with degenerative change. IMPRESSION: Mild osteoarthritis within the right shoulder. No fractures. Electronically signed by: Valentin Zaman M.D. 05/24/2019 10:26 AM
[2019-05-24] MEDS ORDERED: GLUCAGON FOR INJ 1 MG VIAL SQ PRN (11:10)
[2019-05-24] MEDS ORDERED: CARBOHYDRATES FOR HYPOGLYCEMIA PO PRN (11:10)
[2019-05-24] MEDS ORDERED: GLUCOSE 40% GEL 15 GM TUBE PO PRN (11:10)
[2019-05-24] MEDS ORDERED: POTASSIUM CHLORIDE 20 MEQ TABCR PO STA ×2 (11:10→18:49)
[2019-05-24] MEDS ORDERED: GLUCOSE 10 TABS/TUBE PO PRN (11:10)
[2019-05-24] MEDS ORDERED: lisinopriL 5 MG TAB PO SCH (11:10)
[2019-05-24] MEDS ORDERED: NITROGLYCERIN SL 0.4 MG/TAB TAB SL PRN (11:10)
[2019-05-24] MEDS ORDERED: POLYETHYLENE (MIRALAX) 17 GM PACK PO PRN (11:10)
[2019-05-24] MEDS ORDERED: ONDANSETRON INJ 2 MG/ML 2 ML VIAL IV PRN (11:10)
[2019-05-24] MEDS ORDERED: CEFEPIME CONSULT ACTIVE PRN (11:37)
[2019-05-24] MEDS ORDERED: METRONIDAZOLE CONSULT ACTIVE PRN (11:41)
[2019-05-24] MEDS: metroNIDAZOLE 500 MG/100 ML BAG IV SCH ×2 (11:54→19:20)
[2019-05-24] MEDS ORDERED: NSS + 20MEQ KCL 20 MEQ/1,000 ML BAG IV SCH (12:00)
[2019-05-24] MEDS ORDERED: ISOSORBIDE DINITRATE 10 MG TAB PO SCH (12:00)
[2019-05-24] MEDS ORDERED: PHARMACY GLYCEMIC MGMT CONSULT PRN (12:20)
[2019-05-24] MEDS: CLOPIDOGREL BISULFATE 75 MG TAB PO SCH (12:49)
[2019-05-24] MEDS: ASPIRIN 81 MG ECTAB PO SCH (12:49)
[2019-05-24] MEDS: METOPROLOL SUCC 25MG EXT REL TAB PO SCH ×2 (12:49→21:28)
[2019-05-24] MEDS: FAMOTIDINE 10 MG TABLET PO SCH ×2 (12:49→21:25)
[2019-05-24] MEDS: PANTOprazole 40 MG TAB PO SCH ×2 (12:49→21:25)
[2019-05-24] MEDS: CEFEPIME 2,000 MG in SYRINGE 7.5 ML IV SCH ×2 (12:49→21:12)
--- NOTE | 2019-05-24 13:03 | XRay Report ---
XR forearm RT 2V CLINICAL HISTORY: Right forearm pain and swelling. COMPARISON STUDY: None. FINDINGS: Soft tissue swelling within the elbow and proximal to mid forearm. No fracture or dislocati on. No underlying bony abnormality. No radiopaque foreign bodies. No significant elbow effusion. Tiny linear focus of soft tissue gas at the antecubital fossa. IMPRESSION: 1. Soft tissue swelling within the elbow and forearm. 2. No fractures identified. 3. Tiny linear focus of soft tissue gas within the antecubital fossa. This could be due to prior intr avenous line insertion. A gas-forming infection could also have a [facility]. Electronically signed by: Valentin Zaman M.D. 05/24/2019 1:01 PM
--- NOTE | 2019-05-24 14:12 | Pharmacy Report ---
Glycemic Control Consultation - Date of Service May 24, 2019 - Scope Scope: Glycemic Pharmacist consulted by Dr Zhu on 05/24 for glycemic control and to write orders per [facility] inpatient glycemic control protocol - Objective Weight: 87.6 kg Accuchecks BSG (last 24hrs): 05/24/19 05/24/19 05/24/19 05:14 05:15 05:17 Glucose 31 L* POC Glucose 32 L* 36 L* 05/24/19 05/24/19 05/24/19 05:26 05:46 06:06 Glucose POC Glucose 12 L* 65 L* 255 H 05/24/19 05/24/19 05/24/19 06:44 07:44 09:05 Glucose POC Glucose 235 H 204 H 178 H 05/24/19 05/24/19 10:18 11:43 Glucose POC Glucose 130 H 104 H Laboratory Data (last 24hrs): 05/24/19 05:17 Potassium 2.6 L Carbon Dioxide 28 Anion Gap 6.0 Creatinine 1.09 Est Cr Clr Drug Dosing 67.0 - Recent Pertinent Medications Outpatient Anti-diabetic Regimen: * Humulin 70/30 20 units in AM, 28 units in PM (hold if BSG < 120) * A1c = 8.5 % date The patient is currently receiving: * No insulin since admission. Last dose of 70/30 was 28 units on 05/23 PM. Risk Factors for Insulin Resistance: * Infection: on cefepime and Flagyl * IVF: was receiving D10 @ 125 cc/hr but this was d/c'd @ 1100 * Diet: T2DM - Assessment & Plan Assessment & Plan: ASSESSMENT: * 74 y/o male with T2DM admitted from [facility], who was found unconscious at 4 am, with severe hypoglycemia. BSG as low as 12 mg/dL at one point. ED note reports 5 rounds of glucagon and oral glucose being given. In the ED, he was given D50 and then initiated on a D10 infusion. Last dose of 70/30 insulin was 05/23 at dinner. * I spoke with the staff at [facility] to confirm outpatient doses. He has been receiving most AM and PM doses of insulin. Fasting BSGs have been on the lower side, but no significant hypoglycemia such as this episode. I also confirmed that their records noted T2DM. * When admitted for an ND in April, his BSGs were fairly well controlled on Lantus total of 8 units/day and Novolog total of 9 units/day. Will plan on resuming a regimen similar to this, which is very conservative compared to outpatient dosing. Will utilize Lantus + Novolog instead of NPH + Novolog to avoid a basal with a peak overnight. PLAN FOR INPATIENT GLYCEMIC CONTROL: * Basal insulin - start w/ dinner today * Lantus SQ BID per the following scale: * Hold if BSG < 140 * 4 units if BSG 140-180 * 8 units if BSG > 180 * Bolus insulin * NovoLog per scale ACHS or Q6hrs while NPO * Goal Range: Low 140 mg/dL - High 180 mg/dL * Correction Factor: 35 mg/dL/unit * Nutritional / Prandial insulin per carb ratio of 1 unit per 15 grams CHO consumed * Please note that the plan above was derived based on current level of insulin resistance and hospital stress. These recommendations are appropriate for inpatient admission only. Plan of care upon discharge will need to be reassessed to avoid potential outpatient hypo/hyperglycemia. Thank you.
--- NOTE | 2019-05-24 14:27 | Ultrasound Report ---
RIGHT UPPER EXTREMITY VENOUS DOPPLER HISTORY: Right arm swelling COMPARISON STUDY: None. FINDINGS: The right internal jugular vein is patent. There is normal flow within the right subclavian vein. There is normal flow and compressibility within the right axillary, basilic, brachial, radial, ulnar, and visualized cephalic veins. IMPRESSION: No DVT within the right upper extremity. Electronically signed by: Valentin Zaman M.D. 05/24/2019 2:25 PM
[2019-05-24 16:34] LABS: BUN Creatinine Ratio 22.9 (10-20); Calcium 8.6 mg/dl (8.5-10.1); Creatinine Clr Calc Pharmacy 54.6 ml/min; Est GFR (African American) 64.4; Est GFR (Non-African American) 55.6; Potassium 3.4 mmol/L (3.5-5.1)
[2019-05-24] MEDS: INSULIN GLARGINE SOLOSTAR 100 UNITS/ML 3 ML PEN SC SCH (16:54)
[2019-05-24] MEDS: INSULIN ASPART 100 UNITS/ML 3 ML PEN SC SCH ×2 (16:54→21:26)
[2019-05-24] MEDS: HEPARIN SOD 5,000 UNIT/0.5 ML VIAL SQ SCH (21:26)
[2019-05-24] MEDS ORDERED: LACTATED RINGER'S 1,000 ML IV ONE (22:10)
[2019-05-24] MEDS ORDERED: ALBUMIN 25% 50 ML IV ONE (22:47)
[2019-05-24] MEDS ORDERED: PROMETHAZINE HCL 12.5 MG in SODIUM CHLORIDE 0.9% 50 ML IV PRN (22:51)
[2019-05-25] MEDS: DEXTROSE 50% 50 ML SYRINGE IV PRN ×3 (01:36→08:10)
[2019-05-25] MEDS ORDERED: INSULIN ASPART 100 UNITS/ML 3 ML PEN SC ONE (02:00)
[2019-05-25] MEDS ORDERED: INSULIN GLARGINE SOLOSTAR 100 UNITS/ML 3 ML PEN SC SCH (02:41)
[2019-05-25] MEDS ORDERED: D5W AND LACTATED RINGERS 1,000 ML IV SCH (02:45)
[2019-05-25] MEDS ORDERED: TRAMADOL HCL 50 MG TABLET PO PRN (02:51)
[2019-05-25] MEDS ORDERED: MoRPHine SULFATE 4 MG/ML 1 ML CARP\\VIAL IV PRN (02:51)
[2019-05-25] MEDS ORDERED: ACETAMINOPHEN 325 MG TAB PO PRN (02:51)
[2019-05-25] MEDS ORDERED: MoRPHine SULFATE 2 MG/ML CARP IV STA (03:28)
[2019-05-25] MEDS ORDERED: OPTIRAY 320 125ml IV PRN (03:41)
[2019-05-25] MEDS: metroNIDAZOLE 500 MG/100 ML BAG IV SCH (04:13)
[2019-05-25] MEDS: CEFEPIME 2,000 MG in SYRINGE 7.5 ML IV SCH (04:14)
[2019-05-25 04:36] LABS: Hematocrit (blood only) 38.2 % (42-52); Hemoglobin 11.8 g/dL (14.0-18.0); Immature Granulocytes # (auto) 0.01 K/uL (0.00-0.02); Immature Granulocytes % (auto) 0.2 %; Lymphocytes # (auto) 0.41 K/uL (1.2-3.4); Lymphocytes % (auto) 7.4 %; Mean Corpuscular Hemoglobin 26.3 pg (25-34); Mean Corpuscular Hgb Conc 30.9 g/dL (32-36); Mean Corpuscular Volume 85.1 fL (80-100); Mean Platelet Volume 10.7 fL (7.4-10.4); Monocytes # (auto) 0.89 K/uL (0.11-0.59); Monocytes % (auto) 16.1 %; Neutrophils # (auto) 4.23 K/uL (1.4-6.5); Neutrophils % (auto) 76.3 %; Nucleated RBC # (auto) 0.06 K/uL (0-0); Platelet Count 181 K/uL (130-400); RDW Coefficient of Variation 20.1 % (11.5-14.5); RDW Standard Deviation 62.4 fL (36.4-46.3); Red Blood Count 4.49 M/uL (4.7-6.1); White Blood Count 5.54 K/uL (4.8-10.8)
--- NOTE | 2019-05-25 04:41 | Communication Note ---
Date of Service: May 25, 2019
[2019-05-25 04:51] LABS: Partial Thromboplastin Ratio 1.2; Partial Thromboplastin Time 31.8 Seconds (21.0-31.0)
[2019-05-25 04:54] LABS: Albumin Level 2.7 gm/dl (3.4-5.0); BUN Creatinine Ratio 18.2 (10-20); Calcium 8.2 mg/dl (8.5-10.1); Est GFR (African American) 37.6; Est GFR (Non-African American) 32.5; Magnesium 2.1 mg/dl (1.8-2.4); Potassium 5.5 mmol/L (3.5-5.1)
[2019-05-25] MEDS ORDERED: SODIUM BICARB 8.4% INJ 50 MEQ/50 ML SYR IV STA (04:57)
[2019-05-25] MEDS ORDERED: DEXTROSE 50% 50 ML SYRINGE IV ONE (05:01)
[2019-05-25 05:03] LABS: Bilirubin Direct 1.6 mg/dl (0-0.2); Bilirubin,Total 2.4 mg/dl (0.2-1); Total Protein 6.7 gm/dl (6.4-8.2); Troponin I 0.315 ng/ml (0-0.045)
[2019-05-25] MEDS ORDERED: ALBUMIN 25% 50 ML IV ONE (05:06)
[2019-05-25] MEDS ORDERED: INSULIN HUMAN REGULAR PER UNIT 5 UNITS in SYRINGE 4.95 ML IV STA (05:06)
[2019-05-25 05:12] LABS: Anisocytosis Present; Echinocytes 1+; Giant Platelets 1+; Toxic Vacuolation 1+
[2019-05-25] MEDS ORDERED: HYDROmorphone INJ 0.5 MG/0.5 ML SYR IV PRN (05:12)
[2019-05-25] MEDS ORDERED: D5W AND NSS 1,000 ML IV SCH (05:15)
[2019-05-25] MEDS ORDERED: CONSULT PHARMACY PRN (05:31)
[2019-05-25] MEDS ORDERED: DAPTOMYCIN CONSULT ACTIVE PRN (05:31)
[2019-05-25] MEDS ORDERED: DAPTOmycin 275 MG in SYRINGE 0 ML IV SCH (06:00)
--- NOTE | 2019-05-25 06:34 | Hospitalist Progress Note ---
Date of Service May 25, 2019 Subjective Overnight developments: 05/24, 10 PM Made aware by RN of progressive lactic acidosis. 2.8 ->4.6 -> 5.8 Patient nauseous as per RN. NSS IV fluids changed to LRS. 05/25 250 AM Hypoglycemic episodes. Persistent nausea. Patient complaining of central abdominal cramping with loose stools, nonbloody. Tolerable right forearm discomfort. IVF changed to D5 LR S. 4 AM imaging initial results noted. CT abd pelvis initial read: Cardiomegaly, right-sided heart failure, celiac artery, common hepatic artery, splenic artery markedly small in caliber but still patent. Vasculitis or vasospasm is a possibility. Circumferential wall thickening of the gallbladder. Acute cholecystitis cannot be excluded. Small volume ascites. Fat stranding, edema of pancreas possibly from volume overload. Diverticulosis. No bowel wall thickening or obstruction. Normal appendix. Ultrasound gallbladder initial read: Cirrhotic appearing liver. Question gallbladder sludge. Gallbladder also appears slightly edematous with wall measuring 4 mm. Sonograph are unable to assess present of sonographic Pineda sign. Common bile duct measuring 7 mm. lactic acid 12.4 serum crea 1.95 from 1.25 (05/24) Potassium 5.5 SBP 100s AP Severe sepsis SIRS plus lactic acidosis plus ARF Hyperkalemia Possible sources : Intra-abdominal (? Biliary versus bowel ischemia versus C. difficile) Traumatic right forearm cellulitis (soft tissue swelling right forearm and elbow on plain x-ray on admission) N.p.o. for now Hold antihypertensives for now given potential for hemodynamic instability. Cautious IV hydration given ischemic cardiomyopathy EF 20% on recent TTE, follow lactic acid (Change LRS to NSS IVF given hyperkalemia) Stool C. difficile Continue Cefepime, Flagyl And Daptomycin for MRSA coverage for right forearm cellulitis General Surgery consult RE possible intraabdominal sepsis. Case discussed with Dr. Howard ( [facility] surgeon publicity person) who recommends reaching out to tertiary center general surgeon to transfer patient given patient's comorbidities. Dr. Hancock ([facility] surgeon publicity person) agreeable to patient transfer for surgical evaluation if ICU bed available. Dr. Rome ([facility] commercial sales manager publicity person) kindly accepted patient for transfer. Patient updated of developments and was agreeable to the plan of care. Results & Data Vital Signs (Past 12 Hours) Vital Signs Temp Pulse Resp BP Pulse Ox 05/25/19 04:00 36.8 C 63 20 108/63 98 05/25/19 00:00 37.1 C 61 22 116/63 95 05/24/19 20:00 37.5 C 83 20 99/61 L 98 Laboratory Results Laboratory Results WBC 5.54 K/uL (4.8-10.8) 05/25/19 04:20 RBC 4.49 M/uL (4.7-6.1) L 05/25/19 04:20 Hgb 11.8 g/dL (14.0-18.0) L 05/25/19 04:20 Hct 38.2 % (42-52) L 05/25/19 04:20 MCV 85.1 fL (80-100) 05/25/19 04:20 MCH 26.3 pg (25-34) 05/25/19 04:20 MCHC 30.9 g/dL (32-36) L 05/25/19 04:20 RDW Std Deviation 62.4 fL (36.4-46.3) H 05/25/19 04:20 RDW Coeff of Maria Guadalupe 20.1 % (11.5-14.5) H 05/25/19 04:20 Plt Count 181 K/uL (130-400) 05/25/19 04:20 MPV 10.7 fL (7.4-10.4) H 05/25/19 04:20 Immature Gran % (Auto) 0.2 % 05/25/19 04:20 Neut % (Auto) 76.3 % 05/25/19 04:20 Lymph % (Auto) 7.4 % 05/25/19 04:20 [place] % (Auto) 16.1 % 05/25/19 04:20 Eos % (Auto) 0.0 % 05/25/19 04:20 Baso % (Auto) 0.0 % 05/25/19 04:20 Immature Gran # (Auto) 0.01 K/uL (0.00-0.02) 05/25/19 04:20 Neut # (Auto) 4.23 K/uL (1.4-6.5) 05/25/19 04:20 Lymph # (Auto) 0.41 K/uL (1.2-3.4) L 05/25/19 04:20 [place] # (Auto) 0.89 K/uL (0.11-0.59) H 05/25/19 04:20 Eos # (Auto) 0.00 K/uL (0-0.5) 05/25/19 04:20 Baso # (Auto) 0.00 K/uL (0-0.2) 05/25/19 04:20 Absolute Nucleated RBC 0.06 K/uL (0-0) H 05/25/19 04:20 Nucleated RBC % (auto) 1.0 % 05/25/19 04:20 Toxic Vacuolation 1+ 05/25/19 04:20 Giant Platelets 1+ 05/25/19 04:20 Anisocytosis Present 05/25/19 04:20 Echinocytes 1+ 05/25/19 04:20 APTT 31.8 Seconds (21.0-31.0) H 05/25/19 04:20 PTT Ratio 1.2 05/25/19 04:20 Sodium 137 mmol/L (136-145) 05/25/19 04:20 Potassium 5.5 mmol/L (3.5-5.1) H D 05/25/19 04:20 Chloride 107 mmol/L (98-107) 05/25/19 04:20 Carbon Dioxide 15 mmol/L (21-32) L 05/25/19 04:20 Anion Gap 15.0 (3-11) H 05/25/19 04:20 BUN 36 mg/dl (7-18) H 05/25/19 04:20 Creatinine 1.95 mg/dl (0.6-1.4) H D 05/25/19 04:20 Est Cr Clr Drug Dosing 35.0 ml/min 05/25/19 04:20 Est GFR ( Amer) 37.6 05/25/19 04:20 Est GFR (Non-Af Amer) 32.5 05/25/19 04:20 BUN/Creatinine Ratio 18.2 (10-20) 05/25/19 04:20 Glucose 154 mg/dl (70-99) H 05/25/19 04:20 POC Glucose 131 (70-99) H 05/25/19 04:24 Lactate 12.4 mmol/L (0.4-2.0) H* 05/25/19 04:20 Calcium 8.2 mg/dl (8.5-10.1) L 05/25/19 04:20 Magnesium 2.1 mg/dl (1.8-2.4) 05/25/19 04:20 Total Bilirubin 2.4 mg/dl (0.2-1) H D 05/25/19 04:20 Direct Bilirubin 1.6 mg/dl (0-0.2) H 05/25/19 04:20 AST 153 U/L (15-37) H 05/25/19 04:20 ALT 71 U/L (12-78) 05/25/19 04:20 Alkaline Phosphatase 220 U/L (45-117) H 05/25/19 04:20 Total Creatine Kinase 249 U/L (39-308) 05/25/19 04:20 Troponin I 0.315 ng/ml (0-0.045) H* 05/25/19 04:20 Total Protein 6.7 gm/dl (6.4-8.2) 05/25/19 04:20 Albumin 2.7 gm/dl (3.4-5.0) L 05/25/19 04:20 Globulin 4.6 gm/dl (2.5-4.0) H 05/24/19 05:17 Albumin/Globulin Ratio 0.6 (0.9-2) L 05/24/19 05:17 Lipase 38 U/L (73-393) L 05/25/19 04:20 TSH 0.350 uIu/ml (0.300-4.500) 05/24/19 05:17 Urine Color Yellow 05/24/19 07:50 Urine Appearance Clear (Clear) 05/24/19 07:50 Urine pH 5.5 (4.5-7.5) 05/24/19 07:50 Ur Specific [place] 1.019 (1.000-1.030) 05/24/19 07:50 Urine Protein Trace (Negative) H 05/24/19 07:50 Urine Glucose (UA) 3+ (Negative) H 05/24/19 07:50 Urine Ketones Negative (Negative) 05/24/19 07:50 Urine Blood Negative (Negative) 05/24/19 07:50 Urine Nitrite Negative (Negative) 05/24/19 07:50 Urine Bilirubin Negative (Negative) 05/24/19 07:50 Urine Urobilinogen Negative (Negative) 05/24/19 07:50 Ur Leukocyte Esterase Negative (Negative) 05/24/19 07:50 Urine WBC (Auto) 0 /hpf (0-5) 05/24/19 07:50 Urine RBC (Auto) 0-4 /hpf (0-4) 05/24/19 07:50 U Hyaline Cast (Auto) 1-5 /lpf (0-5) 05/24/19 07:50 U Epithel Cells (Auto) 0-5 /lpf (0-5) 05/24/19 07:50 Urine Bacteria (Auto) Negative (Negative) 05/24/19 07:50 Nasal Screen MRSA (PCR) Negative (Negative) 05/24/19 11:24 Stl C. diff Tox B Gene (Neg) 05/25/19 05:00
--- NOTE | 2019-05-25 07:21 | Ultrasound Report ---
US gallbladder HISTORY: 74 years-old Male abd pain acute generalized abdominal pain COMPARISON: CTA abdomen and pelvis of same day TECHNIQUE: Multiple real-time sonographic images of the abdominal right upper quadrant were obtained assessing grayscale appearance and color flow FINDINGS: Pancreas is obscured by bowel gas. Limited exam secondary to uncooperative patient. Increased echogen icity of liver appears heterogeneous with questioned mild marginal nodularity. No intrahepatic biliar y ductal dilation or hepatic mass lesion identified. Common bile duct is normal, 7 mm. Gallbladder is partially contracted and demonstrates edematous wall thickening measuring up to 6 mm. Suggestion of trace gallbladder sludge without shadowing cholelithiasis or pericholecystic fluid. The station engineer w as unable to assess for sonographic Pineda's sign. The imaged right kidney is unremarkable without hy dronephrosis. IMPRESSION: 1. Edematous gallbladder wall thickening without cholelithiasis or pericholecystic fluid identified. This finding is nonspecific and should be correlated clinically. 2. Hepatic steatosis. Additionally, there is equivocal marginal nodularity suspicious for underlying cirrhotic liver disease. Correlate with LFTs. 3. No biliary ductal dilation. The above report was generated using voice recognition software. It may contain grammatical, syntax o r spelling errors. Electronically signed by: Jimmy Cruz M.D. 05/25/2019 7:19 AM
[2019-05-25] MEDS ORDERED: SODIUM CHLORIDE 0.9% 1000ML 500 ML IV SCH (08:15)
[2019-05-25] MEDS: FAMOTIDINE 10 MG TABLET PO SCH (08:19)
[2019-05-25] MEDS: ASPIRIN 81 MG ECTAB PO SCH (08:19)
[2019-05-25] MEDS: INSULIN GLARGINE SOLOSTAR 100 UNITS/ML 3 ML PEN SC SCH (08:19)
[2019-05-25] MEDS: HEPARIN SOD 5,000 UNIT/0.5 ML VIAL SQ SCH (08:19)
[2019-05-25] MEDS: CLOPIDOGREL BISULFATE 75 MG TAB PO SCH (08:20)
[2019-05-25] MEDS: PANTOprazole 40 MG TAB PO SCH (08:20)
[2019-05-25] MEDS: INSULIN ASPART 100 UNITS/ML 3 ML PEN SC SCH (08:20)
--- NOTE | 2019-05-25 08:23 | Hospitalist Progress Note ---
Date of Service May 25, 2019 Assessment & Plan (1) Hypothermia: Metabolic Encephalopathy Hypothermia Hypoglycemia --CT head:No acute intracranial abnormality. Atrophy and microvascular ischemic changes. --CT Neck:Trace prevertebral edema at C3 and C4. This is nonspecific and could b e chronic or due to an infectious process in the appropriate clinical setting. No fractures within the cervical spine. Degenerative changes within the cervical spine as described above. Trace right apical pleural fluid. Thyromegaly. Multiple bilateral parotid gland sialoliths. No inflammatory change to suggest a sialoadenitis. --Altered mental status secondary to hypoglycemia and hypothermia --Hypothermia likely secondary to hypoglycemia --Hypoglycemia likely secondary to insulin therapy precipitated by skipping meals --Empirically started on IV antibiotics--cefepime, Flagyl, daptomycin --Blood cultures: Pending --Continue IV fluids, bear hugger, neuro checks --Consulted health educator --Hypothermia resolved Events overnight Metabolic acidosis MERRILL Worsening LFTs --Gall Bladder USD: Edematous gallbladder wall thickening without cholelithiasis or pericholecystic fluid identified. This finding is nonspecific and should be correlated clinically. Hepatic steatosis. Additionally, there is equivocal marginal nodularity suspicious for underlying cirrhotic liver disease. Correlate with LFTs. No biliary ductal dilation. --ABD CTA: pending --Nocturnal hospitalist discussed with [facility] [address] cloth colors examiner Dr.Shaeesta Rome and Dr.Akpene Hancock surgeon who kindly accepted the patient for further evaluation --Patient is transferred to [facility] for further evaluation and management --Received IV bicarbonate, albumin, IV fluids overnight --Monitor volume status given EF 25 to 30% on last echo 04/28/19 Hypokalemia Likely secondary to hypoglycemia and poor oral intake Replace electrolytes as needed Monitor Right shoulder/Arm pain Neck pain CT neck as above Shoulder X ray: Mild osteoarthritis within the right shoulder. No fractures. Venous Doppler:No DVT within the right upper extremity. Forearm X ray:Soft tissue swelling within the elbow and forearm. No fractures identified. Tiny linear focus of soft tissue gas within the antecubital fossa. This could be due to prior intravenous line insertion. A gas-forming infection could also have a similar appearance in the appropriate clinical setting. No known history of trauma ? Likely due to injections from Glucagon at correctional facility Started on Daptomycin for possible cellulitis DM II Last A1C:8.5 Patient is on 70/30 and sliding scale at home We will need to readjust insulin dosing Monitor blood glucose levels closely Sliding scale insulin for now Pharmacy consulted to help with glycemic management On hypoglycemia protocol CAD S/P stent Continue aspirin, Plavix, isosorbide, lisinopril, metoprolol Currently not on statin secondary to transaminitis HTN Continue home medications Monitor Gout Continue allopurinol GERD Continue PPI Transaminitis Fatty liver Extensive work-up was done during prior admission Also evaluated by GI during prior admission Statin discontinued Avoid hepatotoxic agents as able Monitor LFTs Lactic acidosis Also noted on prior admission No obvious source of infection Previously on statin, metformin which was discontinued during previous admission DVT Px: Heparin SQ CODE STATUS Full Code Disposition: Transfer to [facility] for further evaluation Subjective Patient is seen and examined at bedside Patient complained of abdominal pain overnight and his lactic acidosis gradually worsened Patient developed severe metabolic acidosis, MERRILL, worsening LFTs Gallbladder ultrasound showed edematous gallbladder wall thickening without cholelithiasis or pericholecystic fluid no also findings suggestive of hepatic steatosis. Hospitalist economic development manager discussed with [facility] [address] cloth colors examiner Dr.Shaeesta Rome and Dr.Akpene Hancock surgeon who kindly accepted the patient for further evaluation Patient does not have any abdominal pain this morning Patient is planned to be transferred to [facility] today Review of Systems Review of Systems: All systems reviewed & are unremarkable except as noted in HPI & below Physical Exam Physical Exam: Physical Exam: Vitals signs as noted above General Appearance:Moderately built and nourished, no apparent distress Head: normocephalic, Atraumatic Eyes: normal inspection, EOMI Neck: supple, Trachea midline Respiratory/Chest: Normal breath sounds, CTA Cardiovascular: S1, S2, No murmur Abdomen/GI:Soft, Non tender, Bowel sounds present Extremities/Musculoskelatal:normal inspection, Trace pretibial edema Neurologic/Psych:AAOX3, grossly no focal neurological deficits, RUE swelling, tender Skin: normal color, warm Results & Data Vital Signs (Past 12 Hours) Vital Signs Temp Pulse Resp BP Pulse Ox 05/25/19 07:00 36.6 C 58 L 22 107/69 98 05/25/19 04:00 36.8 C 63 20 108/63 98 05/25/19 00:00 37.1 C 61 22 116/63 95 Laboratory Results Short CBC 05/25/19 Range/Units 04:20 WBC 5.54 (4.8-10.8) K/uL Hgb 11.8 L (14.0-18.0) g/dL Hct 38.2 L (42-52) % Plt Count 181 (130-400) K/uL BMP 05/24/19 05/25/19 05/25/19 15:55 04:20 07:53 Sodium 140 137 140 Potassium 3.4 L D 5.5 H D 4.6 D Chloride 108 H 107 109 H Carbon Dioxide 24 15 L 16 L BUN 29 H 36 H 39 H Creatinine 1.25 1.95 H D 2.19 H Glucose 140 H 154 H 70 Calcium 8.6 8.2 L 8.8 Cardiac Enzymes 05/25/19 Range/Units 04:20 Total Creatine Kinase 249 (39-308) U/L Troponin I 0.315 H* (0-0.045) ng/ml Liver Function 05/25/19 05/25/19 Range/Units 04:20 07:53 Total Bilirubin 2.4 H D (0.2-1) mg/dl Direct Bilirubin 1.6 H (0-0.2) mg/dl AST 153 H 648 H (15-37) U/L ALT 71 260 H (12-78) U/L Alkaline Phosphatase 220 H (45-117) U/L Albumin 2.7 L 3.2 L (3.4-5.0) gm/dl (1) Hypothermia Encounter type: initial encounter Qualified Code(s): T68.XXXA - Hypothermia, initial encounter
[2019-05-25 08:45] LABS: Albumin Level 3.2 gm/dl (3.4-5.0); BUN Creatinine Ratio 17.8 (10-20); Calcium 8.8 mg/dl (8.5-10.1); Creatinine Clr Calc Pharmacy 31.2 ml/min; Est GFR (African American) 32.7; Est GFR (Non-African American) 28.2; Potassium 4.6 mmol/L (3.5-5.1)
[2019-05-25 08:54] LABS: Albumin Globulin Ratio 0.7 (0.9-2); Bilirubin,Total 3.4 mg/dl (0.2-1); Globulin 4.5 gm/dl (2.5-4.0); Total Protein 7.7 gm/dl (6.4-8.2); Troponin I 0.365 ng/ml (0-0.045)
[2019-05-25 08:57] LABS: Base Excess VBG -10.5 mEq/L; HCO3 VBG 15 mmol/L; Oxygen Saturation VBG < 60.0 %; PCO2 VBG 34 mmHg (38-50); PO2 VBG 22 mmHg; pH VBG 7.27 (7.36-7.41)
[2019-05-25] MEDS ORDERED: FUROSEMIDE 40 MG TAB PO SCH (09:00)
[2019-05-25] MEDS ORDERED: DULOXETINE HCL 30 MG CAP PO SCH (09:00)
[2019-05-25] MEDS ORDERED: allopurinoL 300 MG TAB PO SCH ×2 (09:00)
[2019-05-25] MEDS ORDERED: METOPROLOL SUCC 25MG EXT REL TAB PO SCH (09:00)
[2019-05-25] MEDS ORDERED: allopurinoL 100 MG TAB PO SCH (09:00)
--- NOTE | 2019-05-25 09:05 | Discharge Summary ---
Date of Service May 25, 2019 Admission HPI Per Admitting Provider Patient is a 74 yr male with H/O CAD S/P stent, DM II, HTN, Hyperlipidemia, Gout, GERD, Fatty liver, lactic acidosis and other problems presents with altered mental status. Patient was unsure about the events that took place prior to admission. As per the staff and ER physician, patient was found to be hypoglycemic in 20s at the correctional facility. His last dose of insulin was yesterday at 5 PM. Patient was thought to have skipped his meal yesterday night. Patient's cellmate found him to be unconscious at 4 AM this morning and his temperature was 31 C rectally. Patient was given multiple doses of g lucagon and multiple glucose tablets while at the correctional facility but his hypoglycemia persisted in 30s. Patient was brought to the ED for further evaluation. Patient was given D50 and was started on D10 drip. Patient was placed on Ladarius hugger on hypothermia improved. Patient is oriented while in ED and complains of neck pain and right shoulder pain. Imaging studies are negative for any acute fractures. He denied any chest pain, shortness of breath, dizziness, nausea, abdominal pain, fever, headache, change in vision. No known history of fall or head trauma. Admission Exam Per Admitting Provider Physical Exam: Vitals signs as noted above General Appearance:Moderately built and nourished, no apparent distress Head: normocephalic, Atraumatic Eyes: normal inspection, EOMI Neck: supple, Trachea midline Respiratory/Chest: Normal breath sounds, CTA Cardiovascular: S1, S2, No murmur Abdomen/GI:Soft, Non tender, Bowel sounds present Extremities/Musculoskelatal:normal inspection, Trace pretibial edema Neurologic/Psych:AAOX3, grossly no focal neurological deficits, RUE swelling, tender Skin: normal color, warm Principal Diagnosis Severe sepsis Hypothermia Hypoglycemia Lactic acidosis Metabolic encephalopathy Electrolyte imbalance Possible bowel ischemia Discharge Data Allergies Allergy/AdvReac Type Severity Reaction Status Date / Time Sulfa (Sulfonamide Allergy Mild Unknown Verified 05/24/19 05:52 Antibiotics) Penicillins Allergy Unknown . Verified 05/24/19 05:52 atorvastatin AdvReac Intermediate elevated Verified 05/24/19 05:52 LFT's Consultations 05/24/19 08:13 ED Decision to Admit Stat 05/24/19 11:10 Consult Case Management - Discharge Planning Routine 05/25/19 07:57 Burn CD for patient Stat 05/25/19 08:10 Burn CD for patient Stat Procedures Performed --CT head:No acute intracranial abnormality. Atrophy and microvascular ischemic changes. --CT Neck:Trace prevertebral edema at C3 and C4. This is nonspecific and could be chronic or due to an infectious process in the appropriate clinical setting. No fractures within the cervical spine. Degenerative changes within the cervical spine as described above. Trace right apical pleural fluid. Thyromegaly. Multiple bilateral parotid gland sialoliths. No inflammatory change to suggest a sialoadenitis. --Gall Bladder USD: Edematous gallbladder wall thickening without cholelithiasis or pericholecystic fluid identified. This finding is nonspecific and should be correlated clinically. Hepatic steatosis. Additionally, there is equivocal marginal nodularity suspicious for underlying cirrhotic liver disease. Correlate with LFTs. No biliary ductal dilation. --Abdominal CTA: Pending --Shoulder X ray: Mild osteoarthritis within the right shoulder. No fractures. --Venous Doppler:No DVT within the right upper extremity. --Forearm X ray:Soft tissue swelling within the elbow and forearm. No fractures identified. Tiny linear focus of soft tissue gas within the antecubital fossa. This could be due to prior intravenous line insertion. A gas-forming infection could also have a similar appearance in the appropriate clinical setting. Ordered Studies 05/24/19 07:01 CT head/brain wo con Stat 05/24/19 08:53 CT soft tissue neck wo con Stat 05/24/19 11:10 US venous doppler UE RT Routine 05/25/19 03:24 CT angio abdomen pelvis w con Urgent 05/25/19 04:41 US gallbladder Urgent Hospital Course (1) Hypothermia: Metabolic Encephalopathy Hypothermia Hypoglycemia --CT head:No acute intracranial abnormality. Atrophy and microvascular ischemic changes. --CT Neck:Trace prevertebral edema at C3 and C4. This is nonspecific and could be chronic or due to an infectious process in the appropriate clinical setting. No fractures within the cervical spine. Degenerative changes within the cervical spine as described above. Trace right apical pleural fluid. Thyromegaly. Multiple bilateral parotid gland sialoliths. No inflammatory change to suggest a sialoadenitis. --Altered mental status secondary to hypoglycemia and hypothermia --Hypothermia likely secondary to hypoglycemia --Hypoglycemia likely secondary to insulin therapy precipitated by skipping meals --Empirically started on IV antibiotics--cefepime, Flagyl, daptomycin --Blood cultures: Pending --Continue IV fluids, bear hugger, neuro checks --Consulted managed care provider --Hypothermia resolved Events overnight Metabolic acidosis MERRILL Worsening LFTs --Gall Bladder USD: Edematous gallbladder wall thickening without cholelithiasis or pericholecystic fluid identified. This finding is nonspecific and should be correlated clinically. Hepatic steatosis. Additionally, there is equivocal marginal nodularity suspicious for underlying cirrhotic liver disease. Correlate with LFTs. No biliary ductal dilation. --ABD CTA: pending --Nocturnal hospitalist discussed with [facility] air commodore Dr.Shaeesta Rome and Dr.Akpene Hancock surgeon who kindly accepted the patient for further evaluation --Patient is transferred to [facility] for further evaluation and management --Received IV bicarbonate, albumin, IV fluids overnight --Monitor volume status given EF 25 to 30% on last echo 04/28/19 Hypokalemia Likely secondary to hypoglycemia and poor oral intake Replace electrolytes as needed Monitor Right shoulder/Arm pain Neck pain CT neck as above Shoulder X ray: Mild osteoarthritis within the right shoulder. No fractures. Venous Doppler:No DVT within the right upper extremity. Forearm X ray:Soft tissue swelling within the elbow and forearm. No fractures identified. Tiny linear focus of soft tissue gas within the antecubital fossa. This could be due to prior intravenous line insertion. A gas-forming infection could also have a similar appearance in the appropriate clinical setting. No known history of trauma ? Likely due to injections from Glucagon at correctional facility Started on Daptomycin for possible cellulitis DM II Last A1C:8.5 Patient is on 70/30 and sliding scale at home We will need to readjust insulin dosing Monitor blood glucose levels closely Sliding scale insulin for now Pharmacy consulted to help with glycemic management On hypoglycemia protocol CAD S/P stent Continue aspirin, Plavix, isosorbide, lisinopril, metoprolol Currently not on statin secondary to transaminitis HTN Continue home medications Monitor Gout Continue allopurinol GERD Continue PPI Transaminitis Fatty liver Extensive work-up was done during prior admission Also evaluated by GI during prior admission Statin discontinued Avoid hepatotoxic agents as able Monitor LFTs Lactic acidosis Also noted on prior admission No obvious source of infection Previously on statin, metformin which was discontinued during previous admission DVT Px: Heparin SQ CODE STATUS Full Code Disposition: Transfer to [facility] for further evaluation Total Time Total Time Spent Total Time Spent (In Minutes): 45 Total Time Includes: Examination of the Patient, Discharge Planning, Medication Reconciliation, Communication With Other Providers and Other Discharge Plan Discharge Items Patient Disposition: Transfer Acute Care Hospital Reason For Visit: HYPOTHERMIA,HYPOGLYCEMIA Discharge Diagnosis: Severe sepsis Hypothermia Hypoglycemia Lactic acidosis Metabolic encephalopathy Electrolyte imbalance Possible bowel ischemia Activity: Per Instructions section Exercise/Sports: Wait until after follow-up appointment Non-emergency contact: Primary Care Provider and Surgeon Call non-emergency contact if: you have any medication questions, your symptoms worsen, your pain is not controlled, your pain is worsening, your pain is unusual for you, your pain is concerning for you and you have a fever Follow-up/Referrals: Cheyenne MERRILL [Primary Care Provider] - Diet: Carb Consistent or DM2 and Heart Healthy Addtl Attending Provider Instructions: Follow-up with your physician Dr. Cristy Rome (air commodore ) and Dr. Chris Hancock (surgeon) at [facility] for further evaluation and management Your diuretics, lisinopril and insulin are held during the hospital stay You are on cefepime, daptomycin, Flagyl for possible sepsis which was started empirically. Pending Studies at Discharge: Yes Studies:: Official CTA reading Stand-Alone Forms: My [facility] Skilled Items Patient informed of condition?: Yes DNR: No Discharge Level of Care: Other Communicable Disease: No Discharge Prognosis: Deteriorating Lines: Peripheral IV Urinary Catheter: No Medications and DC Order Prescriptions: New heparin, porcine (PF) 5,000 unit/0.5 mL Syringe 5,000 unit subcut Q12 Qty: 0 RF: 0 Continued metoprolol succinate 50 mg Tablet Extended Release 24 Hr 75 mg PO BID Qty: 60 RF: 5 nitroglycerin [Nitrostat] 0.4 mg Tablet, Sublingual 0.4 mg sublingual UD PRN (Reason: Chest Pain) RF: 0 aspirin 81 mg Tablet,Delayed Release (Dr/Ec) 81 mg PO QAM RF: 0 allopurinol 300 mg Tablet 150 mg PO QAM RF: 0 calcium carbonate-vitamin D3 [Calcium 600 + D(3)] 600 mg(1,500mg) -400 unit Ta blet 1 tab PO QAM RF: 0 ranitidine HCl 150 mg Tablet 150 mg PO BID RF: 0 Humulin 70/30 U-100 Insulin 100 unit/mL (70-30) Suspension 20 unit SUBCUT QAM RF: 0 Humulin 70/30 U-100 Insulin 100 unit/mL (70-30) Suspension 28 unit SUBCUT QPM RF: 0 Humulin R Regular U-100 Insuln 100 unit/mL Solution 1 sliding scale dose SUBCUT BID RF: 0 furosemide 40 mg Tablet 40 mg PO QAM 30 Days Qty: 30 RF: 1 clopidogrel 75 mg Tablet 75 mg PO QAM 30 Days Qty: 30 RF: 1 lisinopril [Zestril] 5 mg Tablet 5 mg PO QAM 30 Days Qty: 30 RF: 1 pantoprazole [Protonix] 40 mg tablet,delayed release (DR/EC) 40 mg PO BID 30 Days Qty: 60 RF: 1 LubriSoft Lotion 1 applic TOPICAL BID RF: 0 isosorbide dinitrate 10 mg Tablet 10 mg PO BID RF: 0 duloxetine 30 mg Capsule,Delayed Release(Dr/Ec) 30 mg PO DAILY RF: 0 Discharge Orders: Discharge Order (Routine); Ordered 05/25/19 Ordered By: Geronimo Zhu Admission Data Admit Date/Time: 05/24/19 09:32 Attending Provider: Geronimo Zhu Admit Provider: Geronimo Zhu Primary Care Provider: Cheyenne MERRILL Other Providers: Geronimo Zhu
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
== END 2019-05-25 09:18 | disposition short-term general hospital (02) | DRG 922 ==
LOC: ED 05:07 → 1E 09:32

== ENCOUNTER 2020-06-18 10:25 | Inpatient (IN) ==
[2020-06-18] MEDS ORDERED: DEXAMETHASONE SOD INJ 10 MG/ML VIAL IV ONE (10:32)
[2020-06-18] MEDS ORDERED: ALBUT/IPRATROP 3MG/0.5MG NEB 3 ML VIAL NEB ONE (10:32)
--- NOTE | 2020-06-18 10:39 | Emergency Department Note ---
Impression & Plan COVID-19, Acute hypoxemic respiratory failure, Acute hyperglycemia, Elevated troponin ED Provider Note Name: MARYANNE [id number] MONSE Age: 75 Sex: M Arrives Via: Ambulance Informant: Patient, EMS ED Provider: Jarret Stanley MD Chief Complaint: Shortness of breath Impression: COVID 19 Acute hypoxemic Respiratory Failure Acute Hyperglycemia Elevated Troponin Medical Decision Makin yr old male arrives for evaluation of acute shortness of breath, worsening the last 24 hours, though after further discussions has been short of breath for several days. High risk patient as he has DMII, HTN, CAD, CHF, Cardiomyopathy, DLP, GERD, with previous stents and splenectomy. He arrives on NC O2 though respiratory status quite poor and work of breathing very concerning. Urgently placed on BiPAP with rapid improvement in his respiratory status. Sats remaining OK. Given IV steroids for presumed COVID and labs obtained. Trop elevated consistent with history of cardiac issues and secondary NSTEMI as no acute ischemia on EKG nor specific chest pain. Febrile and Tachy and CXR with infiltrates though this is more consistent with COVID than over sepsis and I do not feel emergent abx indicated at this time. Did appear a bit dry on exam thus 500ml IV fluids though will hold off on further given known low ejection fraction and his BP holding OK currently. Dimer elevated though with sats doing well on Bipap and CXR consistent with covid, will leave cta/anticoagulation to hospitalist after discussion with them. Prior Medical Record and Triage/Nursing Notes reviewed by Me Additional history obtained from chart Differentials:COVID, Reactive airway disease, pneumonia, pneumothorax, COPD, CHF, infections, cardiac ischemia, pulmonary embolism, musculoskeletal, gastrointestinal, as well as other pathologies. Vital Signs: reviewed and remarkable for hypoxia, tachy, febrile, tachypnea Interventions: saline lock, decadron 10mg IV, nss bolus 500mL IV, bipap Labs:Reviewed and remarkable for +covid, elevated dimer, elevated trop Imaging:Radiologist interpretation reviewed by me: CXR infiltrative disease EKG:Per My Interpretation: Indication Shortness of breath: Sinus tach 130 bpm, qtc 482, mild diffuse ST depressions though similar to EKG 09/15/19. No stemi appreciated nor ectopy Cardiac/Tele Monitoring: Cardiac Monitoring: An Order was placed for continuous cardiac monitoring. The monitor shows a rate of 115 with a sinus tach rhythm. Consults:Dr Rosalie SCHMIDT Hospitalist Plan: Disposition:Hospitalization. Condition: Fair Prescriptions:None PDMP: n/a History of Present Illness:75 yr old male arrives for evaluation of shortness of breath. Patient is prisoner at [facility] and has worsening breathing difficulty over the last 24 hours. Associated chest tightness, productive cough, hiccups, and feeling weak. O2 sats a senior care were 82 % improved with 4L NC though still very short of breath. Patient denies fevers, chills, syncope, headache, leg swelling, calf pain, nausea, vomiting, nor other symptoms. Patient in isolation and denies known covid exposure. No trauma/injuries. Given SLNTG by senior care staff with rapid hypotension that resolved on EMS arrival. Patient denies current chest pain. History of CHF with CAD and multiple stents previously. ROS: See above HPI for pertinent positives & negatives. A total of 10 systems reviewed and were otherwise negative. Past Medical History:CAD, HTN, DMII, DLP, GERD, CHF, Cardiomyopathy, Gout, Elevated LFTs Past Surgical History:Cardiac Stents, Appendectomy, Splenectomy Family History:DMII Social History:Prisoner, Former smoker, No ETOH Home Medications:See Below Allergies:Sulfa, Penicillin, Atorvastatin Vitals:Blood Pressure: 112/79, Pulse 115, RR 36, T 39.5C, O2 87% on RA Physical Exam: GENERAL: Patient is unwell appearing and in moderate distress. EYES: No scleral icterus, unremarkable pupils. ENT: Mucous membranes moist, no nasal congestion. NECK: No masses appreciated, nomeningismus, trachea is midline. RESPIRATORY: Tachypnea, dyspneic, diffuse crackles and wheezing with very tight lung sounds, junky cough, and frequent hiccups. CARDIOVASCULAR: Regular rate and rhythm.No murmurs, rubs, gallops appreciated. GASTROINTESTINAL: Abdomen soft, non-tender, no peritonitis.Bowel sounds positive.No masses appreciated. BACK: No midline tenderness, no CVA tenderness EXTREMITIES: Normal motion all extremities, no cyanosis, no edema. NEUROLOGIC: Alert and oriented, no acute motor or sensory deficits, no focal weakness, cranial nerves grossly intact. SKIN: No rash, no jaundice, no diaphoresis. PSYCH: Appropriate GCS: 15 ED Course: Times/Reassessments: Multiple, improvement with bipap though still a bit tachypneic, hospitalist in to evaluate further Critical Care: I have personally spent 45 minutes of critical care time in the direct managem ent of this patient. Acute hypoxic respiratory failure secondary to COVID-19 with hypoxia requiring BIPAP. This was a life/limb threatening event. This 45 minutes is in excess of all separately billable procedures. Jarret Stanley MD Past Med/Surg History Medical History (Updated 06/18/20 @ 13:11 by Jarret Stanley MD) Abnormal liver function tests Anemia Cardiomyopathy Colon polyps Coronary artery disease Diabetes mellitus type 2 with complications Diverticulitis Dyslipidemia GERD (gastroesophageal reflux disease) Gout Hypertension Surgical History History of heart artery stent Status post appendectomy Status post splenectomy Family History Other Diabetes Social History Smoking Status: Former smoker Tobacco Type: Cigarettes Second Hand Exposure: No; Hx Alcohol Use: No Hx Substance Use: No Preferred Language: Mongolian Communication Ability: Effective Visual Impairment: No Limitations 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: Normal 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 Verified 06/18/20 11:09 atorvastatin AdvReac Intermediate elevated Verified 06/18/20 11:09 LFT's Home Meds Home Medications Medication Instructions Recorded Confirmed allopurinol 150 mg PO QAM 02/02/19 06/18/20 aspirin 81 mg PO QAM 02/02/19 06/18/20 nitroglycerin [Nitrostat] 0.4 mg SUBLINGUAL UD PRN 02/02/19 06/18/20 calcium carbonate-vitamin D3 1 tab PO DAILY 09/15/19 06/18/20 [Caltrate 600 plus D] clopidogrel [Plavix] 75 mg PO DAILY 09/15/19 06/18/20 metoprolol succinate 50 mg PO DAILY 09/15/19 06/18/20 calcium carbonate [Tums] 400 mg PO TID PRN 09/16/19 06/18/20 pantoprazole 40 mg PO DAILY 09/16/19 06/18/20 atorvastatin 10 mg PO HS 06/18/20 06/18/20 baclofen 10 mg PO BID 06/18/20 06/18/20 bumetanide 1 mg PO DAILY 06/18/20 06/18/20 celecoxib 100 mg PO DAILY 06/18/20 06/18/20 docusate sodium 250 mg PO DAILY 06/18/20 06/18/20 duloxetine 30 mg PO HS 06/18/20 06/18/20 insulin NPH and regular human 25 unit SUBCUT DAILY 06/18/20 06/18/20 [Novolin 70/30 U-100 Insulin] insulin NPH and regular human 30 unit SUBCUT QPM 06/18/20 06/18/20 [Novolin 70/30 U-100 Insulin] insulin regular human [Novolin R 1 sliding scale dose SUBCUT 06/18/20 06/18/20 Regular U-100 Insuln] USEASDIRECTD isosorbide mononitrate 30 mg PO DAILY 06/18/20 06/18/20 lisinopril 5 mg PO DAILY 06/18/20 06/18/20 Results & Data (ED) Vital Signs Vital Signs - 24 hr 06/18/20 10:30 06/18/20 10:52 06/18/20 10:54 Temperature 39.5 C H Temperature Source Oral Pulse Rate 113 H 115 H 115 H Pulse Rate [Apical] 115 H Pulse Rate from SpO2 Sensor Pulse Rhythm Regular Pulse Strength Normal Respiratory Rate 34 H 36 H 28 H Respiratory Effort / Characteristics Accessory Muscle Use Labored Short of Breath SOB on Exertion Spontaneous Short of Breath Respiratory Depth Deep Normal Respiratory Pattern Tachypnea Regular Blood Pressure 171/103 H 127/95 Blood Pressure Mean 125 100 Blood Pressure Position Sitting Pulse Oximetry 92 92 98 Oxygen Delivery Method Room Air BiPAP Fraction of Inspired Oxygen 21 Sepsis Recent Fever Within 48 Hours Yes Sepsis New/Unexplained Change in Mental Status No Sepsis Action Taken by Nursing Physician Notified 06/18/20 11:00 06/18/20 12:00 06/18/20 12:01 Temperature Temperature Source Pulse Rate 110 H 114 H 116 H Pulse Rate [Apical] Pulse Rate from SpO2 Sensor 111 H Pulse Rhythm Pulse Strength Respiratory Rate 33 H 28 H 28 H Respiratory Effort / Characteristics Respiratory Depth Respiratory Pattern Blood Pressure 141/103 H 118/83 Blood Pressure Mean 120 93 Blood Pressure Position Pulse Oximetry 97 96 95 Oxygen Delivery Method BiPAP Fraction of Inspired Oxygen 21 Sepsis Recent Fever Within 48 Hours Sepsis New/Unexplained Change in Mental Status Sepsis Action Taken by Nursing 06/18/20 12:23 06/18/20 12:30 06/18/20 12:31 Temperature Temperature Source Pulse Rate 117 H 113 H 117 H Pulse Rate [Apical] Pulse Rate from SpO2 Sensor Pulse Rhythm Pulse Strength Respiratory Rate 36 H 42 H 29 H Respiratory Effort / Characteristics Respiratory Depth Respiratory Pattern Blood Pressure 139/86 114/74 Blood Pressure Mean 101 93 Blood Pressure Position Pulse Oximetry 91 94 95 Oxygen Delivery Method Fraction of Inspired Oxygen Sepsis Recent Fever Within 48 Hours Sepsis New/Unexplained Change in Mental Status Sepsis Action Taken by Nursing 06/18/20 13:00 06/18/20 13:01 06/18/20 13:30 Temperature Temperature Source Pulse Rate 115 H 115 H 113 H Pulse Rate [Apical] Pulse Rate from SpO2 Sensor Pulse Rhythm Pulse Strength Respiratory Rate 37 H 36 H 32 H Respiratory Effort / Characteristics Respiratory Depth Respiratory Pattern Blood Pressure 112/79 133/85 Blood Pressure Mean 101 91 Blood Pressure Position Pulse Oximetry 94 95 93 Oxygen Delivery Method Fraction of Inspired Oxygen Sepsis Recent Fever Within 48 Hours Sepsis New/Unexplained Change in Mental Status Sepsis Action Taken by Nursing 06/18/20 13:48 Temperature 37.1 C Temperature Source Oral Pulse Rate Pulse Rate [Apical] Pulse Rate from SpO2 Sensor Pulse Rhythm Pulse Strength Respiratory Rate Respiratory Effort / Characteristics Respiratory Depth Respiratory Pattern Blood Pressure Blood Pressure Mean Blood Pressure Position Pulse Oximetry Oxygen Delivery Method Fraction of Inspired Oxygen Sepsis Recent Fever Within 48 Hours Sepsis New/Unexplained Change in Mental Status Sepsis Action Taken by Nursing Laboratory Data Result diagrams: 06/18/20 10:56 06/18/20 10:56 Lab Results 06/18/20 06/18/20 06/18/20 Range/Units 10:45 10:45 10:56 WBC (4.8-10.8) K/uL RBC (4.7-6.1) M/uL Hgb (14.0-18.0) g/dL Hct (42-52) % MCV (80-100) fL MCH (25-34) pg MCHC (32-36) g/dL RDW Std Deviation (36.4-46.3) fL RDW Coeff of Maria Guadalupe (11.5-14.5) % Plt Count (130-400) K/uL MPV (7.4-10.4) fL Immature Gran % (Auto) % Neut % (Auto) % Lymph % (Auto) % Beauregard % (Auto) % Eos % (Auto) % Baso % (Auto) % Neut # (Auto) (1.4-6.5) K/uL Lymph # (Auto) (1.2-3.4) K/uL Beauregard # (Auto) (0.11-0.59) K/uL Eos # (Auto) (0-0.5) K/uL Baso # (Auto) (0-0.2) K/uL Immature Gran # (Auto) (0.00-0.02) K/uL PT (9.0-12.0) Seconds INR (0.9-1.1) D-Dimer (0-500) ug/L FEU Sodium 129 L (136-145) mmol/L Potassium 3.9 (3.5-5.1) mmol/L Chloride 94 L (98-107) mmol/L Carbon Dioxide 24 (21-32) mmol/L Anion Gap 11.0 (3-11) BUN 25 H (7-18) mg/dl Creatinine 1.25 (0.6-1.4) mg/dl Est Cr Clr Drug Dosing 55.8 ml/min Est GFR ( Amer) 64.0 Est GFR (Non-Af Amer) 55.2 BUN/Creatinine Ratio 20.2 H (10-20) Glucose 342 H* (70-99) mg/dl Lactate (0.4-2.0) mmol/L Calcium 8.8 (8.5-10.1) mg/dl Magnesium 2.0 (1.8-2.4) mg/dl Total Bilirubin 0.7 (0.2-1) mg/dl Direct Bilirubin 0.3 H (0-0.2) mg/dl AST 67 H (15-37) U/L ALT 23 (12-78) U/L Alkaline Phosphatase 115 (45-117) U/L Troponin I 0.118 H* (0-0.045) ng/ml NT-Pro-B Natriuret Pep 7657 H (0-1800) pg/ml Total Protein 8.9 H (6.4-8.2) gm/dl Albumin 2.9 L (3.4-5.0) gm/dl Beta-Hydroxybutyric Acd 12.31 H (0.2-2.81) mg/dl Procalcitonin (0-0.5) ng/ml TSH 0.581 (0.300-4.500) uIu/ml COVID-19 Eval [facility] SARS-[facility]-2, RNA, NAAT POSITIVE A* (NEGATIVE) Blood Type Antibody Screen 06/18/20 06/18/20 06/18/20 Range/Units 10:56 10:56 10:56 WBC 3.90 L (4.8-10.8) K/uL RBC 5.28 (4.7-6.1) M/uL Hgb 14.7 (14.0-18.0) g/dL Hct 43.7 (42-52) % MCV 82.8 (80-100) fL MCH 27.8 (25-34) pg MCHC 33.6 (32-36) g/dL RDW Std Deviation 46.0 (36.4-46.3) fL RDW Coeff of Maria Guadalupe 15.2 H (11.5-14.5) % Plt Count 188 (130-400) K/uL MPV 10.3 (7.4-10.4) fL Immature Gran % (Auto) 0.3 % Neut % (Auto) 83.3 % Lymph % (Auto) 9.7 % Beauregard % (Auto) 6.7 % Eos % (Auto) 0.0 % Baso % (Auto) 0.0 % Neut # (Auto) 3.25 (1.4-6.5) K/uL Lymph # (Auto) 0.38 L (1.2-3.4) K/uL Beauregard # (Auto) 0.26 (0.11-0.59) K/uL Eos # (Auto) 0.00 (0-0.5) K/uL Baso # (Auto) 0.00 (0-0.2) K/uL Immature Gran # (Auto) 0.01 (0.00-0.02) K/uL PT 12.4 H (9.0-12.0) Seconds INR 1.2 H (0.9-1.1) D-Dimer 1150 H* (0-500) ug/L FEU Sodium (136-145) mmol/L Potassium (3.5-5.1) mmol/L Chloride (98-107) mmol/L Carbon Dioxide (21-32) mmol/L Anion Gap (3-11) BUN (7-18) mg/dl Creatinine (0.6-1.4) mg/dl Est Cr Clr Drug Dosing ml/min Est GFR ( Amer) Est GFR (Non-Af Amer) BUN/Creatinine Ratio (10-20) Glucose (70-99) mg/dl Lactate (0.4-2.0) mmol/L Calcium (8.5-10.1) mg/dl Magnesium (1.8-2.4) mg/dl Total Bilirubin (0.2-1) mg/dl Direct Bilirubin (0-0.2) mg/dl AST (15-37) U/L ALT (12-78) U/L Alkaline Phosphatase (45-117) U/L Troponin I (0-0.045) ng/ml NT-Pro-B Natriuret Pep (0-1800) pg/ml Total Protein (6.4-8.2) gm/dl Albumin (3.4-5.0) gm/dl Beta-Hydroxybutyric Acd (0.2-2.81) mg/dl Procalcitonin 0.99 H (0-0.5) ng/ml TSH (0.300-4.500) uIu/ml COVID-19 Eval Order SARS-CoV-2, RNA, NAAT (NEGATIVE) Blood Type Antibody Screen 06/18/20 06/18/20 Range/Units 11:28 11:28 WBC (4.8-10.8) K/uL RBC (4.7-6.1) M/uL Hgb (14.0-18.0) g/dL Hct (42-52) % MCV (80-100) fL MCH (25-34) pg MCHC (32-36) g/dL RDW Std Deviation (36.4-46.3) fL RDW Coeff of Maria Guadalupe (11.5-14.5) % Plt Count (130-400) K/uL MPV (7.4-10.4) fL Immature Gran % (Auto) % Neut % (Auto) % Lymph % (Auto) % Beauregard % (Auto) % Eos % (Auto) % Baso % (Auto) % Neut # (Auto) (1.4-6.5) K/uL Lymph # (Auto) (1.2-3.4) K/uL Beauregard # (Auto) (0.11-0.59) K/uL Eos # (Auto) (0-0.5) K/uL Baso # (Auto) (0-0.2) K/uL Immature Gran # (Auto) (0.00-0.02) K/uL PT (9.0-12.0) Seconds INR (0.9-1.1) D-Dimer (0-500) ug/L FEU Sodium (136-145) mmol/L Potassium (3.5-5.1) mmol/L Chloride (98-107) mmol/L Carbon Dioxide (21-32) mmol/L Anion Gap (3-11) BUN (7-18) mg/dl Creatinine (0.6-1.4) mg/dl Est Cr Clr Drug Dosing ml/min Est GFR ( Amer) Est GFR (Non-Af Amer) BUN/Creatinine Ratio (10-20) Glucose (70-99) mg/dl Lactate 3.1 H* (0.4-2.0) mmol/L Calcium (8.5-10.1) mg/dl Magnesium (1.8-2.4) mg/dl Total Bilirubin (0.2-1) mg/dl Direct Bilirubin (0-0.2) mg/dl AST (15-37) U/L ALT (12-78) U/L Alkaline Phosphatase (45-117) U/L Troponin I (0-0.045) ng/ml NT-Pro-B Natriuret Pep (0-1800) pg/ml Total Protein (6.4-8.2) gm/dl Albumin (3.4-5.0) gm/dl Beta-Hydroxybutyric Acd (0.2-2.81) mg/dl Procalcitonin (0-0.5) ng/ml TSH (0.300-4.500) uIu/ml COVID-19 Eval Order SARS-CoV-2, RNA, NAAT (NEGATIVE) Blood Type B Positive Antibody Screen NEGATIVE Administered Medications Discontinued Medications Acetaminophen (Acetaminophen 500 Mg Tab) 1,000 mg PO NOW STA Stop: 06/18/20 11:16 Last Admin: 06/18/20 12:32 Dose: 1,000 mg Documented by: [id number] Albuterol (Albut/Ipratrop 3mg/0.5mg Neb 3 Ml Vial) 12 ml NEB ONE ONE Stop: 06/18/20 10:33 Last Admin: 06/18/20 10:52 Dose: 12 ml Documented by: [id number] Dexamethasone (Dexamethasone Sod Inj 10 Mg/Ml Vial) 10 mg IV NOW ONE Stop: 06/18/20 10:33 Last Admin: 06/18/20 12:32 Dose: 10 mg Documented by: [id number] Sodium Chloride (Nss 1000ml) 500 mls @ 999 mls/hr IV .Q31M ONE Stop: 06/18/20 11:46 Last Infusion: 06/18/20 13:05 Dose: 0 mls/hr Documented by: [id number] Admin: 06/18/20 12:32 Dose: 999 mls/hr Documented by: [id number] Insulin Human Regular (Insulin Human Regular) 10 units IV NOW STA Stop: 06/18/20 11:56 Last Admin: 06/18/20 12:03 Dose: 10 units Documented by: [id number] Cosigned by: [id number] Insulin Human Regular (Novolin-R Insulin Per Unit Charge) Confirm Administered Dose 10 units .ROUTE .STK-MED ONE Stop: 06/18/20 12:03 Last Admin: 06/18/20 12:32 Dose: Not Given Documented by: [id number] Discharge Plan Visit Data Chief Complaint: Shortness of Breath/Dyspnea ED Provider: Jarret Stanley Discharge Problem: COVID-19, Acute hypoxemic respiratory failure, Acute hyperglycemia, Elevated troponin Forms Stand Alone Forms: My [facility] Prescriptions Prescriptions: No Action nitroglycerin [Nitrostat] 0.4 mg Tablet, Sublingual 0.4 mg sublingual UD PRN (Reason: Chest Pain) RF: 0 aspirin 81 mg Tablet,Delayed Release (Dr/Ec) 81 mg PO QAM RF: 0 allopurinol 300 mg Tablet 150 mg PO QAM RF: 0 metoprolol succinate 50 mg tablet extended release 24 hr 50 mg PO DAILY RF: 0 clopidogrel [Plavix] 75 mg Tablet 75 mg PO DAILY RF: 0 Caltrate 600 plus D 600 mg (1,500 mg)-800 unit Tablet,Chewable 1 tab PO DAILY RF: 0 calcium carbonate [Tums] 200 mg calcium (500 mg) Tablet,Chewable 400 mg PO TID PRN (Reason: Unknown) RF: 0 pantoprazole 40 mg Tablet,Delayed Release (Dr/Ec) 40 mg PO DAILY RF: 0 atorvastatin 10 mg Tablet 10 mg PO HS RF: 0 isosorbide mononitrate 30 mg Tablet Extended Release 24 Hr 30 mg PO DAILY RF: 0 Novolin 70/30 U-100 Insulin 100 unit/mL (70-30) Suspension 30 unit SUBCUT QPM RF: 0 Novolin 70/30 U-100 Insulin 100 unit/mL (70-30) Suspension 25 unit SUBCUT DAILY RF: 0 baclofen 10 mg Tablet 10 mg PO BID RF: 0 Novolin R Regular U-100 Insuln 100 unit/mL Solution 1 sliding scale dose SUBCUT USEASDIRECTD RF: 0 bumetanide 1 mg Tablet 1 mg PO DAILY RF: 0 lisinopril 5 mg Tablet 5 mg PO DAILY RF: 0 docusate sodium 250 mg Capsule 250 mg PO DAILY RF: 0 celecoxib 100 mg Capsule 100 mg PO DAILY RF: 0 duloxetine 30 mg Capsule,Delayed Release(Dr/Ec) 30 mg PO HS RF: 0
[2020-06-18 11:06] LABS: Hematocrit (blood only) 43.7 % (42-52); Hemoglobin 14.7 g/dL (14.0-18.0); Immature Granulocytes # (auto) 0.01 K/uL (0.00-0.02); Immature Granulocytes % (auto) 0.3 %; Lymphocytes # (auto) 0.38 K/uL (1.2-3.4); Lymphocytes % (auto) 9.7 %; Mean Corpuscular Hemoglobin 27.8 pg (25-34); Mean Corpuscular Hgb Conc 33.6 g/dL (32-36); Mean Corpuscular Volume 82.8 fL (80-100); Mean Platelet Volume 10.3 fL (7.4-10.4); Monocytes # (auto) 0.26 K/uL (0.11-0.59); Monocytes % (auto) 6.7 %; Neutrophils # (auto) 3.25 K/uL (1.4-6.5); Neutrophils % (auto) 83.3 %; Platelet Count 188 K/uL (130-400); RDW Coefficient of Variation 15.2 % (11.5-14.5); Red Blood Count 5.28 M/uL (4.7-6.1)
[2020-06-18] MEDS ORDERED: ACETAMINOPHEN 500 MG TAB PO STA (11:15)
[2020-06-18 11:16] LABS: INR 1.2 (0.9-1.1); Prothrombin Time 12.4 Seconds (9.0-12.0)
[2020-06-18] MEDS ORDERED: SODIUM CHLORIDE 0.9% 1000ML 500 ML IV ONE (11:16)
[2020-06-18 11:28] LABS: D Dimer 1150 ug/L FEU (0-500)
[2020-06-18 11:38] LABS: Albumin Level 2.9 gm/dl (3.4-5.0); BUN Creatinine Ratio 20.2 (10-20); Bilirubin Direct 0.3 mg/dl (0-0.2); Bilirubin,Total 0.7 mg/dl (0.2-1); Calcium 8.8 mg/dl (8.5-10.1); Creatinine Clr Calc Pharmacy 55.8 ml/min; Est GFR (Non-African American) 55.2; Potassium 3.9 mmol/L (3.5-5.1); Thyroid Stimulating Hormone 0.581 uIu/ml (0.300-4.500); Total Protein 8.9 gm/dl (6.4-8.2); Troponin I 0.118 ng/ml (0-0.045)
[2020-06-18 11:50] LABS: Beta-Hydroxybutyrate 12.31 mg/dl (0.2-2.81)
[2020-06-18] MEDS ORDERED: INSULIN HUMAN REGULAR IV STA (11:55)
[2020-06-18] MEDS ORDERED: NovoLIN-R INSULIN PER UNIT CHARGE ONE (12:02)
--- NOTE | 2020-06-18 12:07 | XRay Report ---
XR chest 1V portable HISTORY: Shortness of breath. COMPARISON: Chest 09/15/2019. FINDINGS: No pneumothorax. No pleural effusions. The heart remains mildly enlarged. There is perihila r interstitial and vascular thickening suggestive of mild congestive change. There is a hazy appearan ce to the right lung base. IMPRESSION: 1. Cardiomegaly with perihilar interstitial/vascular thickening. This favors mild congestive change. 2. There is also a hazy appearance of the right lung base which could be due to the suspected pulmona ry edema or a viral pneumonitis. ACT 112: Negative or not required by law. Electronically signed by: Valentin Zaman M.D. 06/18/2020 12:06 PM
--- NOTE | 2020-06-18 13:00 | History & Physical Report ---
Date of Service June 18, 2020 Assessment & Plan (1) Acute hypoxemic respiratory failure: Acute respiratory failure with hypoxemia/acute on chronic systolic CHF/pneumonia due to COVID-19 virus- Continue BiPAP at current settings, and titrate downward per protocol as symptoms improve Present on Admission?: Yes (2) Acute on chronic systolic ACC/AHA stage C congestive heart failure: Acute on chronic systolic CHF/elevated troponin/ischemic cardiomyopathy/hypertension- The patient will be admitted to telemetry for serial cardiac enzymes, serial EKG's, cardiac rhythm monitoring. Place on Bumex 1 mg IV twice daily, and hold oral dosing. Follow response and titrate Bumex as needed Continue aspirin, clopidogrel, isosorbide mononitrate, lisinopril and metoprolol succinate Serial BMP and magnesium levels Consult cardiology Present on Admission?: Yes (3) Pneumonia due to COVID-19 virus: Placed on dexamethasone 6 mg IV every morning. Remdesivir IV per protocol Convalescent plasma, consent obtained Ventolin HFA 2 puffs 4 times daily, and every 2 hours as needed Zinc sulfate turn 20 mg p.o. every morning Present on Admission?: Yes (4) Elevated troponin: See above Present on Admission?: Yes (5) Hyperglycemia due to type 2 diabetes mellitus: Continue insulin 70/30 25 units subcu every morning and 30 units subcu every afternoon Placed on Accu-Cheks before meals and at bedtime with NovoLog coverage per scale Due to glucose of 342 upon admission, and dexamethasone given in ED, recommended regular insulin 10 units IV x1, with adjustments to be made depending upon response Present on Admission?: Yes (6) Gout: Continue allopurinol Present on Admission?: Yes (7) Ischemic cardiomyopathy: See above Present on Admission?: Yes (8) Hypertension: See above Present on Admission?: Yes (9) Dyslipidemia: Continue atorvastatin Present on Admission?: Yes History of Present Illness Chief Complaint: The patient presents to the emergency department with complaint of worsening shortness of breath over the past 24 hours, which initially began over the past few days. Primary Care Provider: DESIRAE Quinn The patient is a 75-year-old male with a past medical history including non- STEMI, ischemic cardiomyopathy, CAD, hypertension, dyslipidemia, diabetes mellitus type 2, GERD, acute on chronic systolic heart failure, MICHAEL to OM1, and abnormal liver function tests. Upon arrival to the emergency department, due to his acute shortness of breath, he was placed on BiPAP, with significant improvement in symptoms. Work-up in the emergency department Included following laboratories: Sodium 129, glucose 342, AST 67, troponin 0 0 .118, BNP 7657, albumin 2.9, D-dimer 1150 and COVID-19 positive. Pulse ox was 92% on room air Portable chest x-ray showed cardiomegaly with perihilar interstitial/vascular thickening, favoring mild congestive change. There is also a hazy appearance of the right lung base which could be due to the suspected pulmonary edema or a viral pneumonitis. Allergies Allergy/AdvReac Type Severity Reaction Status Date / Time Sulfa (Sulfonamide Allergy Mild Unknown Verified 06/18/20 11:09 Antibiotics) Penicillins Allergy Unknown . Verified 06/18/20 11:09 atorvastatin AdvReac Intermediate elevated Verified 06/18/20 11:09 LFT's Home Medications Medication Instructions Recorded Confirmed Type allopurinol 150 mg PO QAM 02/02/19 06/18/20 History aspirin 81 mg PO QAM 02/02/19 06/18/20 History nitroglycerin [Nitrostat] 0.4 mg SUBLINGUAL UD PRN 02/02/19 06/18/20 History calcium carbonate-vitamin D3 1 tab PO DAILY 09/15/19 06/18/20 History [Caltrate 600 plus D] clopidogrel [Plavix] 75 mg PO DAILY 09/15/19 06/18/20 History metoprolol succinate 50 mg PO DAILY 09/15/19 06/18/20 History calcium carbonate [Tums] 400 mg PO TID PRN 09/16/19 06/18/20 History pantoprazole 40 mg PO DAILY 09/16/19 06/18/20 History atorvastatin 10 mg PO HS 06/18/20 06/18/20 History baclofen 10 mg PO BID 06/18/20 06/18/20 History bumetanide 1 mg PO DAILY 06/18/20 06/18/20 History celecoxib 100 mg PO DAILY 06/18/20 06/18/20 History docusate sodium 250 mg PO DAILY 06/18/20 06/18/20 History duloxetine 30 mg PO HS 06/18/20 06/18/20 History insulin NPH and regular human 25 unit SUBCUT DAILY 06/18/20 06/18/20 History [Novolin 70/30 U-100 Insulin] insulin NPH and regular human 30 unit SUBCUT QPM 06/18/20 06/18/20 History [Novolin 70/30 U-100 Insulin] insulin regular human [Novolin R 1 sliding scale dose SUBCUT 06/18/20 06/18/20 History Regular U-100 Insuln] USEASDIRECTD isosorbide mononitrate 30 mg PO DAILY 06/18/20 06/18/20 History lisinopril 5 mg PO DAILY 06/18/20 06/18/20 History Past Med/Surg History Medical History (Updated 06/18/20 @ 14:21 by Tiago Wiggins MD) Abnormal liver function tests Anemia Cardiomyopathy Colon polyps Coronary artery disease Diabetes mellitus type 2 with complications Diverticulitis Dyslipidemia GERD (gastroesophageal reflux disease) Gout Hypertension Surgical History History of heart artery stent Status post appendectomy Status post splenectomy Family History Other Diabetes Social History Smoking Status: Former smoker Tobacco Type: Cigarettes Second Hand Exposure: No; Hx Alcohol Use: No Hx Substance Use: No Preferred Language: Grenadian Communication Ability: Effective Visual Impairment: No Limitations 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 Beliefs That Will Affect Care: None Current Living Situation: Other Current Living Situation Comment: correction facility Feels Safe at Home: Yes Assistive Devices: Glasses Review of Systems Review of Systems: The patient denies chest pain, palpitations, lower extremity swelling, sore throat, fevers, chills, sweats, nausea, vomiting, d iarrhea , constipation, abdominal pain, pelvic pain, blood in urine or stool, dysuria, urinary frequency or urgency, lightheadedness, dizziness, headache, memory loss, loss of consciousness, rash, abnormal bruising or bleeding, imbalance, focal weakness, numbness or tingling in arms or legs, generalized arthralgias or myalgias, back or neck pain, or night sweats. The review of systems is otherwise negative other than for that already noted above, and at least 10 systems have been reviewed. Physical Exam Physical Exam: The patient is awake, alert and oriented 3, well developed and well nourished, normocephalic and atraumatic, lying in bed and in no acute distress. HEENT--PERRL, EOMI, mucous membranes and oropharynx normal. Neck--supple. No JVD. No bruits. Thyroid normal, trachea midline, no adenopathy. Heart--tachycardic and regular. No murmurs, rubs or gallops. Lungs--coarse breath sounds bilaterally. No respiratory distress and no accessory muscle use on BiPAP Abdomen--normal bowel sounds and soft. Nontender. Nondistended, no hernias or masses, no organomegaly. Extremities--no cyanosis or clubbing. No edema. Dermatologic--normal skin turgor, normal color, no abnormal lymph nodes, no rash. Neurologic--cranial nerves II through XII grossly intact. Rheumatologic--normal range of motion. Psychiatric--normal affect. Results & Data Results & Data ([facility]) Vital Signs (Past 12 Hours) Vital Signs Temp Pulse Pulse Resp BP Pulse Ox 06/18/20 11:00 110 H 33 H 141/103 H 97 06/18/20 10:54 115 H 28 H 127/95 98 06/18/20 10:52 115 H 115 H 36 H 92 06/18/20 10:30 103.1 F H 113 H 34 H 171/103 H 92 Laboratory Results Laboratory Results WBC 3.90 K/uL (4.8-10.8) L 06/18/20 10:56 RBC 5.28 M/uL (4.7-6.1) 06/18/20 10:56 Hgb 14.7 g/dL (14.0-18.0) 06/18/20 10:56 Hct 43.7 % (42-52) 06/18/20 10:56 MCV 82.8 fL (80-100) 06/18/20 10:56 MCH 27.8 pg (25-34) 06/18/20 10:56 MCHC 33.6 g/dL (32-36) 06/18/20 10:56 RDW Std Deviation 46.0 fL (36.4-46.3) 06/18/20 10:56 RDW Coeff of Maria Guadalupe 15.2 % (11.5-14.5) H 06/18/20 10:56 Plt Count 188 K/uL (130-400) 06/18/20 10:56 MPV 10.3 fL (7.4-10.4) 06/18/20 10:56 Immature Gran % (Auto) 0.3 % 06/18/20 10:56 Neut % (Auto) 83.3 % 06/18/20 10:56 Lymph % (Auto) 9.7 % 06/18/20 10:56 [place] % (Auto) 6.7 % 06/18/20 10:56 Eos % (Auto) 0.0 % 06/18/20 10:56 Baso % (Auto) 0.0 % 06/18/20 10:56 Neut # (Auto) 3.25 K/uL (1.4-6.5) 06/18/20 10:56 Lymph # (Auto) 0.38 K/uL (1.2-3.4) L 06/18/20 10:56 [place] # (Auto) 0.26 K/uL (0.11-0.59) 06/18/20 10:56 Eos # (Auto) 0.00 K/uL (0-0.5) 06/18/20 10:56 Baso # (Auto) 0.00 K/uL (0-0.2) 06/18/20 10:56 Immature Gran # (Auto) 0.01 K/uL (0.00-0.02) 06/18/20 10:56 PT 12.4 Seconds (9.0-12.0) H 06/18/20 10:56 INR 1.2 (0.9-1.1) H 06/18/20 10:56 D-Dimer 1150 ug/L FEU (0-500) H* 06/18/20 10:56 Sodium 129 mmol/L (136-145) L 06/18/20 10:56 Potassium 3.9 mmol/L (3.5-5.1) 06/18/20 10:56 Chloride 94 mmol/L (98-107) L 06/18/20 10:56 Carbon Dioxide 24 mmol/L (21-32) 06/18/20 10:56 Anion Gap 11.0 (3-11) 06/18/20 10:56 BUN 25 mg/dl (7-18) H 06/18/20 10:56 Creatinine 1.25 mg/dl (0.6-1.4) 06/18/20 10:56 Est Cr Clr Drug Dosing 55.8 ml/min 06/18/20 10:56 Est GFR ( Amer) 64.0 06/18/20 10:56 Est GFR (Non-Af Amer) 55.2 06/18/20 10:56 BUN/Creatinine Ratio 20.2 (10-20) H 06/18/20 10:56 Glucose 342 mg/dl (70-99) H* 06/18/20 10:56 Lactate 4.0 mmol/L (0.4-2.0) H* 06/18/20 13:42 Calcium 8.8 mg/dl (8.5-10.1) 06/18/20 10:56 Magnesium 2.0 mg/dl (1.8-2.4) 06/18/20 10:56 Total Bilirubin 0.7 mg/dl (0.2-1) 06/18/20 10:56 Direct Bilirubin 0.3 mg/dl (0-0.2) H 06/18/20 10:56 AST 67 U/L (15-37) H 06/18/20 10:56 ALT 23 U/L (12-78) 06/18/20 10:56 Alkaline Phosphatase 115 U/L (45-117) 06/18/20 10:56 Troponin I 0.118 ng/ml (0-0.045) H* 06/18/20 10:56 NT-Pro-B Natriuret Pep 7657 pg/ml (0-1800) H 06/18/20 10:56 Total Protein 8.9 gm/dl (6.4-8.2) H 06/18/20 10:56 Albumin 2.9 gm/dl (3.4-5.0) L 06/18/20 10:56 Beta-Hydroxybutyric Acd 12.31 mg/dl (0.2-2.81) H 06/18/20 10:56 Procalcitonin 0.99 ng/ml (0-0.5) H 06/18/20 10:56 TSH 0.581 uIu/ml (0.300-4.500) 06/18/20 10:56 COVID-19 Eval Order Covid19 [facility] 06/18/20 10:45 SARS-CoV-2, RNA, NAAT POSITIVE (NEGATIVE) A* 06/18/20 10:45 Blood Type B Positive 06/18/20 11:28 Antibody Screen NEGATIVE 06/18/20 11:28 None Diagnostic Findings [facility], [id number] XRay Report Patient: MARYANNE SHEA [id number] Date: 06/18/20#: [id number]: [facility] INSTITUTION DRIVEAcct ID:[id number]: [facility] Zip: [place] [address]Znd: 75Location: EDSex: MRoom/Bed:Att Phy:Diagnosis: SOBPri Phy: SCI BennerService Date: 06/18/20Fam Phy:Interpreting Phy: Valentin Zaman MDAdmit Phy: Ordering Phy: Jarret Stanley M.D. cc: ~ XR chest 1V portable HISTORY: Shortness of breath. COMPARISON: Chest 09/15/2019. FINDINGS: No pneumothorax. No pleural effusions. The heart remains mildly enlarged. There is perihilar interstitial and vascular thickening suggestive of mild congestive change. There is a hazy appearance to the right lung base. IMPRESSION: 1. Cardiomegaly with perihilar interstitial/vascular thickening. This favors mild congestive change. 2. There is also a hazy appearance of the right lung base which could be due to the suspected pulmonary edema or a viral pneumonitis. ACT 112: Negative or not required by law. Electronically signed by: Valentin Zaman M.D. 06/18/2020 12:06 PM Dictated: 06/18/20 1205Transcribed: 06/18/20 1205 Code Status & VTE Plan Code Status Full code VTE Prophylaxis Plan VTE Prophylaxis will be ordered: Yes PG Care Time/CCT Total # of Minutes Spent Total Time Spent with Patient: Total time spent is greater than 50% in coordina tion of care (as documented) at patient's floor/unit and/or counseling patient: Coding Level of Care Code 69942 Initial Inpt Care Lvl 3 Diagnoses Acute hypoxemic respiratory failure J96.01 Acute on chronic systolic ACC/AHA stage C congestive heart failure I50.23 Pneumonia due to COVID-19 virus U07.1; J12.89 Elevated troponin R77.8 Hyperglycemia due to type 2 diabetes mellitus E11.65 Gout M10.9 Ischemic cardiomyopathy I25.5 Hypertension I10 Dyslipidemia E78.5
[2020-06-18] MEDS ORDERED: NITROGLYCERIN SL 0.4 MG/TAB TAB SL PRN (14:31)
[2020-06-18] MEDS ORDERED: GLUCOSE 10 TABS/TUBE PO PRN (14:31)
[2020-06-18] MEDS ORDERED: GLUCOSE 40% GEL 15 GM TUBE PO PRN (14:31)
[2020-06-18] MEDS ORDERED: CALCIUM CARBONATE 500 MG CHEWABLE TAB PO PRN (14:31)
[2020-06-18] MEDS ORDERED: GLUCAGON FOR INJ 1 MG VIAL SQ PRN (14:31)
[2020-06-18] MEDS ORDERED: DEXTROSE 50% 50 ML SYRINGE IV PRN (14:31)
[2020-06-18] MEDS ORDERED: BUMETANIDE 1 MG in SYRINGE 0 ML IV ONE (14:45)
[2020-06-18] MEDS ORDERED: PNEUMOCOCCAL POLYSACCHARIDES 25 MCG/0.5 ML VIAL/SYR IM ONE (14:47)
[2020-06-18] MEDS ORDERED: PNEUMOCOCCAL ADMINISTRATION CHARGE ONE (14:47)
[2020-06-18] MEDS: ALBUT/IPRATROP 3MG/0.5MG NEB 3 ML VIAL NEB SCH ×2 (15:45→19:27)
[2020-06-18] MEDS ORDERED: REMDESIVIR 200 MG in SODIUM CHLORIDE 0.9% 210 ML IV ONE (16:00)
[2020-06-18] MEDS: ZINC SULFATE 220 MG CAPSULE PO SCH (16:16)
[2020-06-18] MEDS ORDERED: INSULIN HUMAN 70% NPH/30% REGULAR SQ SCH (16:30)
[2020-06-18] MEDS: cefTRIAXone SODIUM 2,000 MG in DEXTROSE 5% 50 ML IV SCH (16:38)
[2020-06-18] MEDS: INSULIN ASPART 100 UNITS/ML 3 ML PEN SC SCH ×2 (16:42→20:39)
[2020-06-18] MEDS ORDERED: BUMETANIDE 1 MG in SYRINGE 0 ML IV SCH (17:00)
[2020-06-18] MEDS: AZITHROMYCIN 500 MG in DEXTROSE 5% 250 ML IV SCH (17:29)
[2020-06-18] MEDS: Heparin IV Low Dose *NO* Bolus IV SCH ×3 (17:31→18:30)
[2020-06-18] MEDS ORDERED: PHARMACY GLYCEMIC MGMT CONSULT PRN (17:34)
[2020-06-18] MEDS: HEPARIN SODIUM/DEXTROSE 25,000 UNITS/500 ML BAG IV SCH (17:34)
[2020-06-18] MEDS ORDERED: INSULIN GLARGINE SOLOSTAR 100 UNITS/ML 3 ML PEN SC ONE ×2 (18:00→21:15)
--- NOTE | 2020-06-18 18:07 | Electrocardiogram Report ---
Test Reason : Blood Pressure : / mmHG Vent. Rate : 130 BPM Atrial Rate : 130 BPM P-R Int : 132 ms QRS Dur : 108 ms QT Int : 328 ms P-R-T Axes : 071 017 051 degrees QTc Int : 482 ms Poor data quality, interpretation may be adversely affected Sinus tachycardia with Premature supraventricular complexes Possible Left atrial enlargement Possible Lateral infarct , age undetermined Abnormal ECG When compared with ECG of 15-SEP-2019 23:22, Premature supraventricular complexes are now Present Borderline criteria for Lateral infarct are now Present Nonspecific T wave abnormality no longer evident in Inferior leads Confirmed by Lauri Rodriguez ([id number]) on 06/18/2020 6:07:03 PM Referred By: SELF Confirmed By:Colten Rodriguez
[2020-06-18] MEDS: SODIUM CHLORIDE 0.9% 10ML FLUSH IV SCH (18:31)
[2020-06-18] MEDS: DULoxetine HCL 30 MG CAP PO SCH (20:36)
[2020-06-18] MEDS: ATORVASTATIN 10 MG TAB PO SCH (20:36)
[2020-06-18] MEDS: BACLOFEN 10 MG TAB PO SCH (20:37)
[2020-06-19 00:05] LABS: Partial Thromboplastin Time 55.5 Seconds (21.0-31.0)
[2020-06-19] MEDS ORDERED: INSULIN ASPART 100 UNITS/ML 3 ML PEN SC ONE ×2 (04:00)
[2020-06-19] MEDS ORDERED: ONDANSETRON INJ 2 MG/ML 2 ML VIAL IV PRN (06:06)
[2020-06-19] MEDS ORDERED: ONDANSETRON INJ 2 MG/ML 2 ML VIAL IV ONE ×2 (06:08→09:21)
[2020-06-19] MEDS ORDERED: ONDANSETRON INJ 2 MG/ML 2 ML VIAL ONE (06:11)
[2020-06-19] MEDS: ALBUT/IPRATROP 3MG/0.5MG NEB 3 ML VIAL NEB SCH (07:21)
[2020-06-19] MEDS: METOPROLOL SUCC 50MG EXT REL TAB PO SCH (07:28)
[2020-06-19] MEDS ORDERED: INSULIN HUMAN 70% NPH/30% REGULAR SQ SCH ×2 (07:30→09:00)
[2020-06-19] MEDS: ACETAMINOPHEN 325 MG TAB PO PRN (07:47)
[2020-06-19 08:06] LABS: Hematocrit (blood only) 43.8 % (42-52); Immature Granulocytes # (auto) 0.01 K/uL (0.00-0.02); Immature Granulocytes % (auto) 0.2 %; Lymphocytes # (auto) 0.31 K/uL (1.2-3.4); Lymphocytes % (auto) 5.3 %; Mean Corpuscular Hgb Conc 34.2 g/dL (32-36); Mean Corpuscular Volume 81.9 fL (80-100); Mean Platelet Volume 10.4 fL (7.4-10.4); Monocytes # (auto) 0.46 K/uL (0.11-0.59); Monocytes % (auto) 7.8 %; Neutrophils # (auto) 5.12 K/uL (1.4-6.5); Neutrophils % (auto) 86.7 %; Platelet Count 219 K/uL (130-400); RDW Coefficient of Variation 15.2 % (11.5-14.5); RDW Standard Deviation 45.2 fL (36.4-46.3); Red Blood Count 5.35 M/uL (4.7-6.1)
[2020-06-19] MEDS ORDERED: ALBUT/IPRATROP 3MG/0.5MG NEB 3 ML VIAL NEB PRN (08:16)
[2020-06-19 08:26] LABS: Partial Thromboplastin Ratio 2.4
[2020-06-19 08:32] LABS: Albumin Level 2.8 gm/dl (3.4-5.0); BUN Creatinine Ratio 34.3 (10-20); Calcium 9.8 mg/dl (8.5-10.1); Creatinine Clr Calc Pharmacy 66.1 ml/min; Est GFR (African American) 81.8; Est GFR (Non-African American) 70.6; Partial Thromboplastin Time 68.2 Seconds (21.0-31.0); Potassium 3.5 mmol/L (3.5-5.1)
[2020-06-19 08:34] LABS: Albumin Globulin Ratio 0.5 (0.9-2); Bilirubin,Total 0.4 mg/dl (0.2-1); Globulin 5.7 gm/dl (2.5-4.0); Total Protein 8.5 gm/dl (6.4-8.2)
[2020-06-19] MEDS ORDERED: INSULIN HUMAN NPH SC SCH ×2 (09:00)
[2020-06-19] MEDS ORDERED: INSULIN GLARGINE 100 UNIT/ML VIAL SC SCH ×2 (09:00)
[2020-06-19] MEDS: BUMETANIDE 1 MG in SYRINGE 0 ML IV SCH ×2 (10:00→16:55)
[2020-06-19] MEDS ORDERED: METOPROLOL TARTRATE 1 MG/ML VIAL IV SCH (10:00)
[2020-06-19] MEDS: cefTRIAXone SODIUM 2,000 MG in DEXTROSE 5% 50 ML IV SCH (10:00)
[2020-06-19] MEDS: dexAMETHasone 6 MG in SYRINGE 0 ML IV SCH (10:00)
[2020-06-19 10:03] LABS: Estimated Average Glucose 252 mg/dl; Hemoglobin A1C 10.4 % (4.5-5.6)
--- NOTE | 2020-06-19 10:07 | Cardiology Consultation ---
Date of Consultation June 19, 2020 Assessment & Plan (1) Pneumonia due to COVID-19 virus: Patient is a very complex 75-year-old -[place] male admitted with acute hypoxic respiratory failure secondary to Covid pneumonia/possible sepsis. Underlying history is notable for fragile cardiac status with severe diffuse coronary artery disease and ischemic cardiomyopathy with past heart failure, acute renal and hepatic failure , cardiogenic shock with past sepsis. Patient very high risk for further deterioration given past history. Troponins are mildly elevated but consistent with acute demand ischemia with known coronary anatomy. Chest x-ray on admission without profound heart failure, no acute EKG changes to suggest injury but tachycardic Recommendations: Continue beta-iron orally and IV for heart rate control. We will increase oral dosing Maintain current diuretic dosing with mild diuresis following renal function closely. We will supplement potassium today We will hold lisinopril, isosorbide mononitrate, a torvastatin, baclofen Topical nitrates placed to be increased or decreased as BP demands Appropriately anticoagulated given elevation in troponin, ischemic heart disease with IV heparin Low threshold for repeat chest x-ray but current O2 saturation stable Addendum: Rhythm currently now appears more persistently atrial fibrillation/atrial tachycardia with elevated rates as above we will increase beta-iron therapy. Patient has contraindications to calcium channel iron/IV diltiazem given LV dysfunction and heart failure. Patient without symptoms (2) Acute hypoxemic respiratory failure: (3) Elevated troponin: (4) Ischemic cardiomyopathy: (5) Chronic systolic (congestive) heart failure: History of Present Illness Requesting Physician: Dr Dye Attending Physician: Luis Muñoz History of Present Illness [facility] [facility] 1. Severe diffuse diabetic coronary artery disease with associated ischemic cardiomyopathy, EF less than 30% 2. Prior palliative coronary intervention for persistent symptoms March 2019 stent circumflex obtuse marginal with stent occlusion and restent in April 2019 with diffuse disease all other vasculature poorly amenable to revascularization 3. Acute sepsis May 2019 with hospitalization at [facility] in [place] with mixed cardiac and non-cardiogenic shock with acute renal failure, shock liver requiring BiPAP respiratory support and dobutamine augmentation 4. Moderate to severe mitral insufficiency 5. Longstanding diabetes mellitus insulin requiring 6. Hypertension 7. Hyperlipidemia with past difficulties with hepatic enzyme elevation 8. Prior splenectomy Patient is referred for ongoing cardiac care, current admission for acute respiratory distress/Covid pneumonia/sepsis. Information gained by discussion with care staff review of all records and imaging studies, review of past admissions and outpatient visits. Patient not personally examined initially Patient referred with several days history of increasing shortness of breath followed by acute dyspnea with subsequent initial evaluation 06/18/2020 reflecting significant hypoxia, Covid positive, chest x-ray consistent with viral pneumonia with possible superimposed congestive heart failure. Patient treated for underlying Covid infection as well as antibiotic therapies given history of past splenectomy Since admission patient is remained tachycardic with sinus tachycardia and inte rmittent paroxysmal atrial tachycardia. Usual dose metoprolol succinate not received on admission due to acute sepsis No specific chest pains but dyspneic and diaphoretic with intermittent nausea and emesis. Is and Os mildly negative since admission. EKG was sinus tachycardia but no acute ST ischemic changes. Troponins elevated Allergies Allergy/AdvReac Type Severity Reaction Status Date / Time Sulfa (Sulfonamide Allergy Mild Unknown Verified 06/18/20 11:09 Antibiotics) Penicillins Allergy Unknown . Verified 06/18/20 11:09 atorvastatin AdvReac Intermediate elevated Verified 06/18/20 11:09 LFT's Home Medications Medication Instructions Recorded Confirmed Type allopurinol 150 mg PO QAM 02/02/19 06/18/20 History aspirin 81 mg PO QAM 02/02/19 06/18/20 History nitroglycerin [Nitrostat] 0.4 mg SUBLINGUAL UD PRN 02/02/19 06/18/20 History calcium carbonate-vitamin D3 1 tab PO DAILY 09/15/19 06/18/20 History [Caltrate 600 plus D] clopidogrel [Plavix] 75 mg PO DAILY 09/15/19 06/18/20 History metoprolol succinate 50 mg PO DAILY 09/15/19 06/18/20 History calcium carbonate [Tums] 400 mg PO TID PRN 09/16/19 06/18/20 History pantoprazole 40 mg PO DAILY 09/16/19 06/18/20 History atorvastatin 10 mg PO HS 06/18/20 06/18/20 History baclofen 10 mg PO BID 06/18/20 06/18/20 History bumetanide 1 mg PO DAILY 06/18/20 06/18/20 History celecoxib 100 mg PO DAILY 06/18/20 06/18/20 History docusate sodium 250 mg PO DAILY 06/18/20 06/18/20 History duloxetine 30 mg PO HS 06/18/20 06/18/20 History insulin NPH and regular human 25 unit SUBCUT DAILY 06/18/20 06/18/20 History [Novolin 70/30 U-100 Insulin] insulin NPH and regular human 30 unit SUBCUT QPM 06/18/20 06/18/20 History [Novolin 70/30 U-100 Insulin] insulin regular human [Novolin R 1 sliding scale dose SUBCUT 06/18/20 06/18/20 History Regular U-100 Insuln] USEASDIRECTD isosorbide mononitrate 30 mg PO DAILY 06/18/20 06/18/20 History lisinopril 5 mg PO DAILY 06/18/20 06/18/20 History Patient History Medical History Abnormal liver function tests Anemia Cardiomyopathy Colon polyps Coronary artery disease Diabetes mellitus type 2 with complications Diverticulitis Dyslipidemia GERD (gastroesophageal reflux disease) Gout Hypertension Surgical History History of heart artery stent Status post appendectomy Status post splenectomy Family History Other Diabetes Social History Smoking Status: Former smoker Tobacco Type: Cigarettes Second Hand Exposure: No; Hx Alcohol Use: No Hx Substance Use: No Preferred Language: Swedish Communication Ability: Effective Visual Impairment: No Limitations 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: Normal Zipper Ironer Required: No Beliefs That Will Affect Care: None marital status: Unknown Current Living Situation: Other Current Living Situation Comment: [facility] Feels Safe at Home: Yes Assistive Devices: Oxygen - Continuous Physical Exam Physical Exam: Patient not examined Results & Data ([facility]) Vital Signs (Past 12 Hours) Vital Signs Temp Pulse Pulse Resp BP BP Pulse Ox 06/19/20 09:32 124 H 120/88 06/19/20 07:40 37.3 C 141 H 22 121/100 92 06/19/20 03:54 37.8 C H 119 H 22 121/96 96 06/19/20 00:00 93 H 06/18/20 23:32 36.6 C 90 22 127/90 100 Laboratory Results Laboratory Results - last 24 hr 06/18/20 06/18/20 06/18/20 10:45 10:45 10:56 WBC RBC Hgb Hct MCV MCH MCHC RDW Std Deviation RDW Coeff of [place] Plt Count MPV Immature Gran % (Auto) Neut % (Auto) Lymph % (Auto) [place] % (Auto) Eos % (Auto) Baso % (Auto) Neut # (Auto) Lymph # (Auto) [place] # (Auto) Eos # (Auto) Baso # (Auto) Immature Gran # (Auto) PT INR APTT PTT Ratio D-Dimer Sodium 129 L Potassium 3.9 Chloride 94 L Carbon Dioxide 24 Anion Gap 11.0 BUN 25 H Creatinine 1.25 Est Cr Clr Drug Dosing 55.8 Est GFR ( Amer) 64.0 Est GFR (Non-Af Amer) 55.2 BUN/Creatinine Ratio 20.2 H Glucose 342 H* POC Glucose Estimat Average Glucose Hemoglobin A1c Lactate Calcium 8.8 Magnesium 2.0 Total Bilirubin 0.7 Direct Bilirubin 0.3 H AST 67 H ALT 23 Alkaline Phosphatase 115 Troponin I 0.118 H* NT-Pro-B Natriuret Pep 7657 H Total Protein 8.9 H Albumin 2.9 L Globulin Albumin/Globulin Ratio Beta-Hydroxybutyric Acd 12.31 H Procalcitonin TSH 0.581 Nasal Screen MRSA (PCR) COVID-19 Eval Order Covid19 [facility]Now [facility] SARS-CoV-2, RNA, NAAT POSITIVE A* Blood Type Antibody Screen 06/18/20 06/18/20 06/18/20 10:56 10:56 10:56 WBC 3.90 L RBC 5.28 Hgb 14.7 Hct 43.7 MCV 82.8 MCH 27.8 MCHC 33.6 RDW Std Deviation 46.0 RDW Coeff of [place] 15.2 H Plt Count 188 MPV 10.3 Immature Gran % (Auto) 0.3 Neut % (Auto) 83.3 Lymph % (Auto) 9.7 [place] % (Auto) 6.7 Eos % (Auto) 0.0 Baso % (Auto) 0.0 Neut # (Auto) 3.25 Lymph # (Auto) 0.38 L [place] # (Auto) 0.26 Eos # (Auto) 0.00 Baso # (Auto) 0.00 Immature Gran # (Auto) 0.01 PT 12.4 H INR 1.2 H APTT PTT Ratio D-Dimer 1150 H* Sodium Potassium Chloride Carbon Dioxide Anion Gap BUN Creatinine Est Cr Clr Drug Dosing Est GFR ( Amer) Est GFR (Non-Af Amer) BUN/Creatinine Ratio Glucose POC Glucose Estimat Average Glucose Hemoglobin A1c Lactate Calcium Magnesium Total Bilirubin Direct Bilirubin AST ALT Alkaline Phosphatase Troponin I NT-Pro-B Natriuret Pep Total Protein Albumin Globulin Albumin/Globulin Ratio Beta-Hydroxybutyric Acd Procalcitonin 0.99 H TSH Nasal Screen MRSA (PCR) COVID-19 Eval Order SARS-CoV-2, RNA, NAAT Blood Type Antibody Screen 06/18/20 06/18/20 06/18/20 11:28 11:28 13:42 WBC RBC Hgb Hct MCV MCH MCHC RDW Std Deviation RDW Coeff of [place] Plt Count MPV Immature Gran % (Auto) Neut % (Auto) Lymph % (Auto) [place] % (Auto) Eos % (Auto) Baso % (Auto) Neut # (Auto) Lymph # (Auto) [place] # (Auto) Eos # (Auto) Baso # (Auto) Immature Gran # (Auto) PT INR APTT PTT Ratio D-Dimer Sodium Potassium Chloride Carbon Dioxide Anion Gap BUN Creatinine Est Cr Clr Drug Dosing Est GFR ( Amer) Est GFR (Non-Af Amer) BUN/Creatinine Ratio Glucose POC Glucose Estimat Average Glucose Hemoglobin A1c Lactate 3.1 H* 4.0 H* Calcium Magnesium Total Bilirubin Direct Bilirubin AST ALT Alkaline Phosphatase Troponin I NT-Pro-B Natriuret Pep Total Protein Albumin Globulin Albumin/Globulin Ratio Beta-Hydroxybutyric Acd Procalcitonin TSH Nasal Screen MRSA (PCR) COVID-19 Eval Order SARS-CoV-2, RNA, NAAT Blood Type B Positive Antibody Screen NEGATIVE 06/18/20 06/18/20 06/18/20 16:39 16:50 17:13 WBC RBC Hgb Hct MCV MCH MCHC RDW Std Deviation RDW Coeff of [place] Plt Count MPV Immature Gran % (Auto) Neut % (Auto) Lymph % (Auto) [place] % (Auto) Eos % (Auto) Baso % (Auto) Neut # (Auto) Lymph # (Auto) [place] # (Auto) Eos # (Auto) Baso # (Auto) Immature Gran # (Auto) PT INR APTT PTT Ratio D-Dimer Sodium Potassium Chloride Carbon Dioxide Anion Gap BUN Creatinine Est Cr Clr Drug Dosing Est GFR ( Amer) Est GFR (Non-Af Amer) BUN/Creatinine Ratio Glucose POC Glucose 269 H Estimat Average Glucose Hemoglobin A1c Lactate Calcium Magnesium Total Bilirubin Direct Bilirubin AST ALT Alkaline Phosphatase Troponin I 0.126 H* NT-Pro-B Natriuret Pep Total Protein Albumin Globulin Albumin/Globulin Ratio Beta-Hydroxybutyric Acd Procalcitonin TSH Nasal Screen MRSA (PCR) Negative COVID-19 Eval Order SARS-CoV-2, RNA, NAAT Blood Type Antibody Screen 06/18/20 06/18/20 06/19/20 20:19 22:59 00:21 WBC RBC Hgb Hct MCV MCH MCHC RDW Std Deviation RDW Coeff of [place] Plt Count MPV Immature Gran % (Auto) Neut % (Auto) Lymph % (Auto) [place] % (Auto) Eos % (Auto) Baso % (Auto) Neut # (Auto) Lymph # (Auto) [place] # (Auto) Eos # (Auto) Baso # (Auto) Immature Gran # (Auto) PT INR APTT 55.5 H* PTT Ratio 2.0 D-Dimer Sodium Potassium Chloride Carbon Dioxide Anion Gap BUN Creatinine Est Cr Clr Drug Dosing Est GFR ( Amer) Est GFR (Non-Af Amer) BUN/Creatinine Ratio Glucose POC Glucose 357 H* 361 H* Estimat Average Glucose Hemoglobin A1c Lactate Calcium Magnesium Total Bilirubin Direct Bilirubin AST ALT Alkaline Phosphatase Troponin I NT-Pro-B Natriuret Pep Total Protein Albumin Globulin Albumin/Globulin Ratio Beta-Hydroxybutyric Acd Procalcitonin TSH Nasal Screen MRSA (PCR) COVID-19 Eval Order SARS-CoV-2, RNA, NAAT Blood Type Antibody Screen 06/19/20 06/19/20 06/19/20 00:22 00:47 03:52 WBC RBC Hgb Hct MCV MCH MCHC RDW Std Deviation RDW Coeff of [place] Plt Count MPV Immature Gran % (Auto) Neut % (Auto) Lymph % (Auto) [place] % (Auto) Eos % (Auto) Baso % (Auto) Neut # (Auto) Lymph # (Auto) [place] # (Auto) Eos # (Auto) Baso # (Auto) Immature Gran # (Auto) PT INR APTT PTT Ratio D-Dimer Sodium Potassium Chloride Carbon Dioxide Anion Gap BUN Creatinine Est Cr Clr Drug Dosing Est GFR ( Amer) Est GFR (Non-Af Amer) BUN/Creatinine Ratio Glucose POC Glucose 368 H* 222 H Estimat Average Glucose Hemoglobin A1c Lactate Calcium Magnesium Total Bilirubin Direct Bilirubin AST ALT Alkaline Phosphatase Troponin I 0.079 H* NT-Pro-B Natriuret Pep Total Protein Albumin Globulin Albumin/Globulin Ratio Beta-Hydroxybutyric Acd Procalcitonin TSH Nasal Screen MRSA (PCR) COVID-19 Eval Order SARS-CoV-2, RNA, NAAT Blood Type Antibody Screen 06/19/20 06/19/20 06/19/20 07:10 07:29 07:29 WBC 5.90 RBC 5.35 Hgb 15.0 Hct 43.8 MCV 81.9 MCH 28.0 MCHC 34.2 RDW Std Deviation 45.2 RDW Coeff of [place] 15.2 H Plt Count 219 MPV 10.4 Immature Gran % (Auto) 0.2 Neut % (Auto) 86.7 Lymph % (Auto) 5.3 [place] % (Auto) 7.8 Eos % (Auto) 0.0 Baso % (Auto) 0.0 Neut # (Auto) 5.12 Lymph # (Auto) 0.31 L [place] # (Auto) 0.46 Eos # (Auto) 0.00 Baso # (Auto) 0.00 Immature Gran # (Auto) 0.01 PT INR APTT PTT Ratio D-Dimer Sodium 132 L Potassium 3.5 Chloride 97 L Carbon Dioxide 26 Anion Gap 9.0 BUN 35 H Creatinine 1.02 Est Cr Clr Drug Dosing 66.1 Est GFR ( Amer) 81.8 Est GFR (Non-Af Amer) 70.6 BUN/Creatinine Ratio 34.3 H Glucose 101 H POC Glucose 119 H Estimat Average Glucose Hemoglobin A1c Lactate Calcium 9.8 Magnesium Total Bilirubin 0.4 Direct Bilirubin AST 62 H ALT 24 Alkaline Phosphatase 103 Troponin I NT-Pro-B Natriuret Pep Total Protein 8.5 H Albumin 2.8 L Globulin 5.7 H Albumin/Globulin Ratio 0.5 L Beta-Hydroxybutyric Acd Procalcitonin TSH Nasal Screen MRSA (PCR) COVID-19 Eval Order SARS-CoV-2, RNA, NAAT Blood Type Antibody Screen 06/19/20 06/19/20 07:29 07:29 WBC RBC Hgb Hct MCV MCH MCHC RDW Std Deviation RDW Coeff of [place] Plt Count MPV Immature Gran % (Auto) Neut % (Auto) Lymph % (Auto) [place] % (Auto) Eos % (Auto) Baso % (Auto) Neut # (Auto) Lymph # (Auto) [place] # (Auto) Eos # (Auto) Baso # (Auto) Immature Gran # (Auto) PT INR APTT 68.2 H* PTT Ratio 2.4 D-Dimer Sodium Potassium Chloride Carbon Dioxide Anion Gap BUN Creatinine Est Cr Clr Drug Dosing Est GFR ( Amer) Est GFR (Non-Af Amer) BUN/Creatinine Ratio Glucose POC Glucose Estimat Average Glucose 252 Hemoglobin A1c 10.4 H Lactate Calcium Magnesium Total Bilirubin Direct Bilirubin AST ALT Alkaline Phosphatase Troponin I NT-Pro-B Natriuret Pep Total Protein Albumin Globulin Albumin/Globulin Ratio Beta-Hydroxybutyric Acd Procalcitonin TSH Nasal Screen MRSA (PCR) COVID-19 Eval Order SARS-CoV-2, RNA, NAAT Blood Type Antibody Screen
[2020-06-19] MEDS: AZITHROMYCIN 500 MG in DEXTROSE 5% 250 ML IV SCH (10:30)
[2020-06-19] MEDS: INSULIN ASPART 100 UNITS/ML 3 ML PEN SC SCH ×4 (10:47→20:39)
[2020-06-19] MEDS: BACLOFEN 10 MG TAB PO SCH (10:49)
[2020-06-19] MEDS: lisinopril 5 MG TAB PO SCH (10:50)
[2020-06-19] MEDS ORDERED: METOPROLOL SUCC 25MG EXT REL TAB PO STA (11:00)
[2020-06-19] MEDS ORDERED: POTASSIUM CHLORIDE CRTAB 20 MEQ TABCR PO ONE (11:05)
[2020-06-19] MEDS: NITROGLYCERIN 2% OINTMENT 30GM TUBE EXT SCH ×3 (11:30→23:47)
[2020-06-19] MEDS ORDERED: METOPROLOL TARTRATE 1 MG/ML VIAL IV PRN ×2 (11:36→12:15)
--- NOTE | 2020-06-19 12:27 | Hospitalist Progress Note ---
Date of Service June 19, 2020 Assessment & Plan (1) Acute hypoxemic respiratory failure: 2nd to acute on chronic systolic CHF and pneumonia due to COVID-19 virus infection. Diurese. Supportive care for COVID-19 pneumonia. Keep sats 90-94% with NC O2. (2) Atrial fibrillation with RVR: New onset. Heparin infusion - standard dosing. Unresponsive to PO/IV metoprolol. Care d/w Dr Lawson from [facility] - poor candidate for cardizem. Dig oxin unlikely to provide significant benefit. Best option is likely amiodarone infusion. Bolus, then drip. Of note - patient has spontaneously converted to NSR earlier today, then back to a.fib. Hopefully we at least have some rate control with amiodarone +/- conversion back to NSR. TSH and K/mag wnl. (3) Acute on chronic systolic ACC/AHA stage C congestive heart failure: Acute on chronic systolic CHF. CHF 2nd to ischemic cardiomyopathy. EF ~30% on echo done thru [facility] earlier in 2019. Bumex 1 mg IV twice daily; hold oral bumex. Cont metoprolol succinate; hold TIMMY due to low-normal BPs; hold imdur due to low-normal BPs. Serial BMP and magnesium levels. Consult cardiology by Dr Lawson, [facility], appreciated. (4) Pneumonia due to COVID-19 virus: Awaiting convalescent plasma from [facility]; consent obtained. Day # 2 of 10 of dexamethasone 6 mg IV every morning. Remdesivir IV per protocol - day #2 of 5 today. Daily AST/ALT. Ventolin prn. Zinc sulfate daily x 10 days. Procalcitonin elevated; could have possible bacterial pneumonia in setting of COVID-19 infection. Also he is splenectomy state and therefore another risk factor for bacterial superinfection. Cont rocephin 2gm IV daily. Change zithromax (QTc prolongation as side effect) to doxycycline 100mg BID star ting in am. Flutter valve. Mucinex. Incentive spirometry. Keep sats 90-94%. Check dimer and procal in am. (5) Elevated troponin: Myocardial demand ischemia in setting of COVID-19 infection, resp failure, rapid a.fib, etc. (6) Hyperglycemia due to type 2 diabetes mellitus: NPH 30 units daily to cover steroids. Lantus BID. Novolog correction & carb ratio. A1c 10.4%. (7) Gout: Continue allopurinol prophylaxis (8) Ischemic cardiomyopathy: EF 20-30% in the past. Cont BB. Holding TIMMY due to low-normal BPs. Cont asa/plavix. (9) Hypertension: See above re: low-normal BPs (10) Dyslipidemia: Hold atorvastatin given high AST and use of remdesivir (11) Intractable hiccups: Add carafate to PPI if this is due to refractory GERD. ??subacute stroke as cause of hiccups? consider imaging when more stable from pulmonary standpoint. thorazine is treatment option but hold off for now. 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 Admission and Anticipated Discharge Date Admission Date: June 18, 2020 Subjective This am patient developed sinus tach, followed by rapid a.fib with rates >150 at times. Had short period of conversion back to NSR, but then a.fib recurred. Unresponsive to additional PO metoprolol and IV metoprolol. Patient with fever this am. Developed significant sweats with such. During my visit he was drenched in sweat. He denied any chest pain. Has cough with dyspnea. No abdominal pain. Has had intractable hiccups for 3-4 weeks. This leads to episodes of emesis at times. No diarrhea. Does have belching/burping at times. Review of Systems Constitutional: + fever, + chills, + sweats, + fatigue and + anorexia Ear, Nose, Mouth, Throat: no loss of taste or smell Respiratory: + cough and + dyspnea; no hemoptysis Cardiovascular: no chest pain and no palpitations Gastrointestinal: + belching, + nausea, + vomiting and + excessive flatulence; no abdominal pain and no heartburn Physical Exam Constitutional: + acute distress (hiccups, tachypnea, sweating), + ill appearing and + frail appearing; no altered mental status ENMT: external ear and nose normal, oropharynx normal Respiratory: + tachypneic Auscultation: + rales (dry, fine, both bases); no wheezes Cardiovascular: Rate/Rhythm: + tachycardic and + irregularly irregular Heart Sounds: normal S1, normal S2 and + murmur (1/6 systolic LLSB) Vessels: posterior tibial pulses present and dorsalis pedis pulses present; no JVD Extremities: no edema Gastrointestinal (Abdomen): normal bowel sounds, soft, nontender, no hepatosplenomegaly Skin: no rashes Neurologic: strabismus, right eye, chronic per patient Psychiatric: Orientation: alert and oriented x 3 Results & Data Results & Data ([facility]) Vital Signs (Past 12 Hours) Vital Signs Temp Pulse Pulse Resp BP BP Pulse Ox 06/19/20 11:50 169 H 06/19/20 11:01 37.0 C 123 H 17 158/89 H 95 06/19/20 09:32 124 H 120/88 06/19/20 07:40 37.3 C 141 H 22 121/100 92 06/19/20 03:54 37.8 C H 119 H 22 121/96 96 Laboratory Results Laboratory Results - last 24 hr 06/18/20 06/18/20 06/18/20 11:28 13:42 16:39 WBC RBC Hgb Hct MCV MCH MCHC RDW Std Deviation RDW Coeff of [place]upe Plt Count MPV Immature Gran % (Auto) Neut % (Auto) Lymph % (Auto) Elbert % (Auto) Eos % (Auto) Baso % (Auto) Neut # (Auto) Lymph # (Auto) Elbert # (Auto) Eos # (Auto) Baso # (Auto) Immature Gran # (Auto) APTT PTT Ratio Sodium Potassium Chloride Carbon Dioxide Anion Gap BUN Creatinine Est Cr Clr Drug Dosing Est GFR ( Amer) Est GFR (Non-Af Amer) BUN/Creatinine Ratio Glucose POC Glucose 269 H Estimat Average Glucose Hemoglobin A1c Lactate 4.0 H* Calcium Total Bilirubin AST ALT Alkaline Phosphatase Troponin I Total Protein Albumin Globulin Albumin/Globulin Ratio Nasal Screen MRSA (PCR) Blood Type B Positive Antibody Screen NEGATIVE 06/18/20 06/18/20 06/18/20 16:50 17:13 20:19 WBC RBC Hgb Hct MCV MCH MCHC RDW Std Deviation RDW Coeff of [place] Plt Count MPV Immature Gran % (Auto) Neut % (Auto) Lymph % (Auto) Elbert % (Auto) Eos % (Auto) Baso % (Auto) Neut # (Auto) Lymph # (Auto) Elbert # (Auto) Eos # (Auto) Baso # (Auto) Immature Gran # (Auto) APTT PTT Ratio Sodium Potassium Chloride Carbon Dioxide Anion Gap BUN Creatinine Est Cr Clr Drug Dosing Est GFR ( Amer) Est GFR (Non-Af Amer) BUN/Creatinine Ratio Glucose POC Glucose 357 H* Estimat Average Glucose Hemoglobin A1c Lactate Calcium Total Bilirubin AST ALT Alkaline Phosphatase Troponin I 0.126 H* Total Protein Albumin Globulin Albumin/Globulin Ratio Nasal Screen MRSA (PCR) Negative Blood Type Antibody Screen 06/18/20 06/19/20 06/19/20 22:59 00:21 00:22 WBC RBC Hgb Hct MCV MCH MCHC RDW Std Deviation RDW Coeff of [place] Plt Count MPV Immature Gran % (Auto) Neut % (Auto) Lymph % (Auto) Elbert % (Auto) Eos % (Auto) Baso % (Auto) Neut # (Auto) Lymph # (Auto) Elbert # (Auto) Eos # (Auto) Baso # (Auto) Immature Gran # (Auto) APTT 55.5 H* PTT Ratio 2.0 Sodium Potassium Chloride Carbon Dioxide Anion Gap BUN Creatinine Est Cr Clr Drug Dosing Est GFR ( Amer) Est GFR (Non-Af Amer) BUN/Creatinine Ratio Glucose POC Glucose 361 H* 368 H* Estimat Average Glucose Hemoglobin A1c Lactate Calcium Total Bilirubin AST ALT Alkaline Phosphatase Troponin I Total Protein Albumin Globulin Albumin/Globulin Ratio Nasal Screen MRSA (PCR) Blood Type Antibody Screen 06/19/20 06/19/20 06/19/20 00:47 03:52 07:10 WBC RBC Hgb Hct MCV MCH MCHC RDW Std Deviation RDW Coeff of [place] Plt Count MPV Immature Gran % (Auto) Neut % (Auto) Lymph % (Auto) Elbert % (Auto) Eos % (Auto) Baso % (Auto) Neut # (Auto) Lymph # (Auto) Elbert # (Auto) Eos # (Auto) Baso # (Auto) Immature Gran # (Auto) APTT PTT Ratio Sodium Potassium Chloride Carbon Dioxide Anion Gap BUN Creatinine Est Cr Clr Drug Dosing Est GFR ( Amer) Est GFR (Non-Af Amer) BUN/Creatinine Ratio Glucose POC Glucose 222 H 119 H Estimat Average Glucose Hemoglobin A1c Lactate Calcium Total Bilirubin AST ALT Alkaline Phosphatase Troponin I 0.079 H* Total Protein Albumin Globulin Albumin/Globulin Ratio Nasal Screen MRSA (PCR) Blood Type Antibody Screen 06/19/20 06/19/20 06/19/20 07:29 07:29 07:29 WBC 5.90 RBC 5.35 Hgb 15.0 Hct 43.8 MCV 81.9 MCH 28.0 MCHC 34.2 RDW Std Deviation 45.2 RDW Coeff of Maria Guadalupe 15.2 H Plt Count 219 MPV 10.4 Immature Gran % (Auto) 0.2 Neut % (Auto) 86.7 Lymph % (Auto) 5.3 Elbert % (Auto) 7.8 Eos % (Auto) 0.0 Baso % (Auto) 0.0 Neut # (Auto) 5.12 Lymph # (Auto) 0.31 L Elbert # (Auto) 0.46 Eos # (Auto) 0.00 Baso # (Auto) 0.00 Immature Gran # (Auto) 0.01 APTT PTT Ratio Sodium 132 L Potassium 3.5 Chloride 97 L Carbon Dioxide 26 Anion Gap 9.0 BUN 35 H Creatinine 1.02 Est Cr Clr Drug Dosing 66.1 Est GFR ( Amer) 81.8 Est GFR (Non-Af Amer) 70.6 BUN/Creatinine Ratio 34.3 H Glucose 101 H POC Glucose Estimat Average Glucose 252 Hemoglobin A1c 10.4 H Lactate Calcium 9.8 Total Bilirubin 0.4 AST 62 H ALT 24 Alkaline Phosphatase 103 Troponin I Total Protein 8.5 H Albumin 2.8 L Globulin 5.7 H Albumin/Globulin Ratio 0.5 L Nasal Screen MRSA (PCR) Blood Type Antibody Screen 06/19/20 06/19/20 07:29 11:19 WBC RBC Hgb Hct MCV MCH MCHC RDW Std Deviation RDW Coeff of [place] Plt Count MPV Immature Gran % (Auto) Neut % (Auto) Lymph % (Auto) Elbert % (Auto) Eos % (Auto) Baso % (Auto) Neut # (Auto) Lymph # (Auto) Elbert # (Auto) Eos # (Auto) Baso # (Auto) Immature Gran # (Auto) APTT 68.2 H* PTT Ratio 2.4 Sodium Potassium Chloride Carbon Dioxide Anion Gap BUN Creatinine Est Cr Clr Drug Dosing Est GFR ( Amer) Est GFR (Non-Af Amer) BUN/Creatinine Ratio Glucose POC Glucose 108 H Estimat Average Glucose Hemoglobin A1c Lactate Calcium Total Bilirubin AST ALT Alkaline Phosphatase Troponin I Total Protein Albumin Globulin Albumin/Globulin Ratio Nasal Screen MRSA (PCR) Blood Type Antibody Screen PG Care Time/CCT Total # of Minutes Spent Total Time Spent with Patient: Total time spent is greater than 50% in coordination of care (as documented) at patient's floor/unit and/or counseling patient: Critical Care Time: Yes Total Critical Care Time: 60 Coding Level of Care Code None Diagnoses Acute hypoxemic respiratory failure J96.01 Atrial fibrillation with RVR I48.91 Acute on chronic systolic ACC/AHA stage C congestive heart failure I50.23 Pneumonia due to COVID-19 virus U07.1; J12.89 Elevated troponin R77.8 Hyperglycemia due to type 2 diabetes mellitus E11.65 Gout M10.9 Ischemic cardiomyopathy I25.5 Hypertension I10 Dyslipidemia E78.5 Intractable hiccups R06.6 Mitral regurgitation I34.0 Hyponatremia E87.1 H/O splenectomy Z90.81 DVT prophylaxis Z29.9 Additional Codes Critical Care Time - Critical Care Time: Yes ([id number]) Time Spent (min) 60
[2020-06-19] MEDS: allopurinoL 300 MG TAB PO SCH (13:00)
[2020-06-19] MEDS: ASPIRIN 81 MG ECTAB PO SCH (13:00)
[2020-06-19] MEDS: ISOSORBIDE MONO EXTENDED REL 30 MG TABCR PO SCH (13:00)
[2020-06-19] MEDS: PANTOprazole 40 MG TAB PO SCH (13:00)
[2020-06-19] MEDS: CLOPIDOGREL BISULFATE 75 MG TAB PO SCH (13:00)
[2020-06-19] MEDS: ZINC SULFATE 220 MG CAPSULE PO SCH (13:01)
[2020-06-19] MEDS: DOCUSATE SODIUM 100 MG CAP PO SCH (13:01)
[2020-06-19] MEDS: CALCIUM 600MG + VIT D 400 IU TAB PO SCH (14:07)
[2020-06-19] MEDS: SODIUM CHLORIDE 0.9% 10ML FLUSH IV SCH (14:13)
[2020-06-19] MEDS: REMDESIVIR 100 MG in SODIUM CHLORIDE 0.9% 230 ML IV SCH (14:13)
[2020-06-19] MEDS: SUCRALFATE 1 GM/10 ML UDC PO SCH ×3 (14:16→20:36)
[2020-06-19] MEDS ORDERED: 0.2 MICRON FILTER SET 1 EA IV ONE (14:50)
[2020-06-19] MEDS ORDERED: STAT IV Infusion **Titration per Protocol STA (14:50)
[2020-06-19] MEDS ORDERED: AMIODARONE IV BOLUS & DRIP IV STA (14:50)
[2020-06-19] MEDS ORDERED: AMIODARONE / D5W 150 MG/100 ML BAG IV STA (15:02)
[2020-06-19] MEDS ORDERED: AMIODARONE / D5W 360 MG/200 ML BAG IV ONE (15:15)
[2020-06-19 17:16] LABS: Partial Thromboplastin Ratio 2.4
[2020-06-19] MEDS: HEPARIN SODIUM/DEXTROSE 25,000 UNITS/500 ML BAG IV SCH (17:41)
[2020-06-19 18:28] LABS: Partial Thromboplastin Time 67.6 Seconds (21.0-31.0)
[2020-06-19] MEDS: DULoxetine HCL 30 MG CAP PO SCH (20:36)
[2020-06-19] MEDS: INSULIN GLARGINE 100 UNIT/ML VIAL SC SCH (20:38)
[2020-06-19] MEDS: AMIODARONE / D5W 360 MG/200 ML BAG IV SCH (20:49)
[2020-06-19 23:31] LABS: Partial Thromboplastin Ratio 2.4
[2020-06-19 23:38] LABS: Partial Thromboplastin Time 66.1 Seconds (21.0-31.0)
[2020-06-20] MEDS: NITROGLYCERIN 2% OINTMENT 30GM TUBE EXT SCH ×2 (06:04→11:35)
[2020-06-20 07:41] LABS: Basophils # (auto) 0.01 K/uL (0-0.2); Basophils % (auto) 0.2 %; Hematocrit (blood only) 47.5 % (42-52); Hemoglobin 15.3 g/dL (14.0-18.0); Immature Granulocytes # (auto) 0.01 K/uL (0.00-0.02); Immature Granulocytes % (auto) 0.2 %; Lymphocytes # (auto) 0.27 K/uL (1.2-3.4); Lymphocytes % (auto) 4.4 %; Mean Corpuscular Hgb Conc 32.2 g/dL (32-36); Mean Corpuscular Volume 83.8 fL (80-100); Mean Platelet Volume 10.4 fL (7.4-10.4); Monocytes # (auto) 0.31 K/uL (0.11-0.59); Neutrophils # (auto) 5.57 K/uL (1.4-6.5); Neutrophils % (auto) 90.2 %; Platelet Count 191 K/uL (130-400); RDW Coefficient of Variation 15.1 % (11.5-14.5); RDW Standard Deviation 45.9 fL (36.4-46.3); Red Blood Count 5.67 M/uL (4.7-6.1); White Blood Count 6.17 K/uL (4.8-10.8)
[2020-06-20 08:00] LABS: Partial Thromboplastin Ratio 2.2
[2020-06-20 08:06] LABS: D Dimer 910 ug/L FEU (0-500); Partial Thromboplastin Time 60.1 Seconds (21.0-31.0)
[2020-06-20 08:17] LABS: Albumin Level 2.7 gm/dl (3.4-5.0); BUN Creatinine Ratio 33.8 (10-20); Calcium 9.1 mg/dl (8.5-10.1); Creatinine Clr Calc Pharmacy 49.5 ml/min; Est GFR (African American) 57.8; Est GFR (Non-African American) 49.8; Magnesium 2.4 mg/dl (1.8-2.4); Potassium 3.7 mmol/L (3.5-5.1)
[2020-06-20 08:20] LABS: Albumin Globulin Ratio 0.5 (0.9-2); Bilirubin,Total 0.4 mg/dl (0.2-1); Globulin 5.7 gm/dl (2.5-4.0); Total Protein 8.4 gm/dl (6.4-8.2)
[2020-06-20] MEDS: BUMETANIDE 1 MG in SYRINGE 0 ML IV SCH (08:31)
[2020-06-20] MEDS: dexAMETHasone 6 MG in SYRINGE 0 ML IV SCH (08:32)
[2020-06-20] MEDS: ZINC SULFATE 220 MG CAPSULE PO SCH (08:32)
[2020-06-20] MEDS: DOCUSATE SODIUM 100 MG CAP PO SCH (08:32)
[2020-06-20] MEDS: PANTOprazole 40 MG TAB PO SCH (08:33)
[2020-06-20] MEDS: CALCIUM 600MG + VIT D 400 IU TAB PO SCH (08:33)
[2020-06-20] MEDS: allopurinoL 300 MG TAB PO SCH (08:34)
[2020-06-20] MEDS: CLOPIDOGREL BISULFATE 75 MG TAB PO SCH (08:35)
[2020-06-20] MEDS: ASPIRIN 81 MG ECTAB PO SCH (08:35)
[2020-06-20] MEDS: METOPROLOL SUCC 50MG EXT REL TAB PO SCH (08:36)
[2020-06-20] MEDS: SUCRALFATE 1 GM/10 ML UDC PO SCH ×4 (08:36→20:23)
[2020-06-20] MEDS: INSULIN GLARGINE 100 UNIT/ML VIAL SC SCH ×2 (08:48→20:26)
[2020-06-20] MEDS: INSULIN HUMAN NPH SC SCH (08:49)
[2020-06-20] MEDS: INSULIN ASPART 100 UNITS/ML 3 ML PEN SC SCH ×4 (08:51→20:24)
[2020-06-20] MEDS: AMIODARONE / D5W 360 MG/200 ML BAG IV SCH (08:52)
[2020-06-20] MEDS: cefTRIAXone SODIUM 2,000 MG in DEXTROSE 5% 50 ML IV SCH (08:56)
[2020-06-20] MEDS: DOXYCYCLINE HYCLATE 100 MG in DEXTROSE 5% 100 ML IV SCH ×2 (08:56→20:26)
--- NOTE | 2020-06-20 09:41 | XRay Report ---
XR chest 1V portable HISTORY: COVID pneumonia, interval change COMPARISON: Chest 06/18/2020. FINDINGS: The heart remains enlarged. No pneumothorax. Hazy bilateral mid to lower lung zone airspace opacities have slightly progressed. This consistent with a worsening pneumonia. No pleural effusions . IMPRESSION: Interval progression of the hazy bilateral mid to lower lung zone airspace opacities consistent with a worsening pneumonia. ACT 112: Negative or not required by law. Electronically signed by: Valentin Zaman M.D. 06/20/2020 9:39 AM
--- NOTE | 2020-06-20 10:37 | Cardiology Progress Note ---
Date of Service June 20, 2020 Assessment & Plan (1) Paroxysmal atrial fibrillation with rapid ventricular response: Patient has remained in sinus rhythm overnight after spontaneous conversion with IV amiodarone. Heart rates in 80s and 90s Plan: Complete IV infusion later today (2099). Begin oral amiodarone this evening, continue metoprolol succinate Patient will require daily EKG especially since with current use of azithromycin (2) Pneumonia due to COVID-19 virus: Maintaining oxygen saturations on current therapy. Cough productive of thick brown sputum (3) Acute hypoxemic respiratory failure: (4) Ischemic cardiomyopathy: Currently appears compensated with I's and O's mildly positive but no overt signs of edema/congestive heart failure. Creatinine has increased with diuresis we will hold IV Bumex this evening with reassessment in a.m. Continue topical nitrates (5) Chronic systolic (congestive) heart failure: (6) Elevated troponin: Admission and Anticipated Discharge Date Admission Date: June 18, 2020 Subjective Patient was seen and examined, chart, medications, telemetry reviewed. Still with persistent hiccups but no chest pain or worsening shortness of breath. Cough productive of thick brown sputum. Patient converted to sinus rhythm yesterday afternoon and has maintained sinus/sinus tachycardia since. IV amiodarone still infusing O2 saturations mid 90s on 4 L nasal cannula Physical Exam Constitutional: Hiccups with only mild respiratory distress. Eyes: PERRL Neck: trachea midline, no thyromegaly Respiratory: Mild tachypnea. No audible wheeze or rub Cardiovascular: RRR, no murmur, no edema Vessels: no JVD Gastrointestinal (Abdomen): normal bowel sounds, soft, nontender, no hepatosplenomegaly Results & Data ([facility]) Vital Signs (Past 12 Hours) Vital Signs Temp Pulse Resp BP BP Pulse Ox 06/20/20 07:37 36.7 C 88 23 104/96 93 06/20/20 05:36 90 20 124/83 93 06/19/20 23:27 36.8 C 90 20 122/86 95 Laboratory Results Laboratory Results - last 24 hr 06/19/20 06/19/20 06/19/20 11:19 14:49 16:38 WBC RBC Hgb Hct MCV MCH MCHC RDW Std Deviation RDW Coeff of [place] Plt Count MPV Immature Gran % (Auto) Neut % (Auto) Lymph % (Auto) [place] % (Auto) Eos % (Auto) Baso % (Auto) Neut # (Auto) Lymph # (Auto) [place] # (Auto) Eos # (Auto) Baso # (Auto) Immature Gran # (Auto) APTT Cancelled 67.6 H* PTT Ratio Cancelled 2.4 D-Dimer Sodium Potassium Chloride Carbon Dioxide Anion Gap BUN Creatinine Est Cr Clr Drug Dosing Est GFR ( Amer) Est GFR (Non-Af Amer) BUN/Creatinine Ratio Glucose POC Glucose 108 H Calcium Magnesium Total Bilirubin AST ALT Alkaline Phosphatase Total Protein Albumin Globulin Albumin/Globulin Ratio Urine Color Urine Appearance Urine pH Ur Specific [place] Urine Protein Urine Glucose (UA) Urine Ketones Urine Blood Urine Nitrite Urine Bilirubin Urine Urobilinogen Ur Leukocyte Esterase Urine WBC (Auto) Urine RBC (Auto) U Hyaline Cast (Auto) U Epithel Cells (Auto) Urine Bacteria (Auto) 06/19/20 06/19/20 06/19/20 16:49 20:03 22:44 WBC RBC Hgb Hct MCV MCH MCHC RDW Std Deviation RDW Coeff of [place] Plt Count MPV Immature Gran % (Auto) Neut % (Auto) Lymph % (Auto) [place] % (Auto) Eos % (Auto) Baso % (Auto) Neut # (Auto) Lymph # (Auto) [place] # (Auto) Eos # (Auto) Baso # (Auto) Immature Gran # (Auto) APTT 66.1 H* PTT Ratio 2.4 D-Dimer Sodium Potassium Chloride Carbon Dioxide Anion Gap BUN Creatinine Est Cr Clr Drug Dosing Est GFR ( Amer) Est GFR (Non-Af Amer) BUN/Creatinine Ratio Glucose POC Glucose 145 H 135 H Calcium Magnesium Total Bilirubin AST ALT Alkaline Phosphatase Total Protein Albumin Globulin Albumin/Globulin Ratio Urine Color Urine Appearance Urine pH Ur Specific [place] Urine Protein Urine Glucose (UA) Urine Ketones Urine Blood Urine Nitrite Urine Bilirubin Urine Urobilinogen Ur Leukocyte Esterase Urine WBC (Auto) Urine RBC (Auto) U Hyaline Cast (Auto) U Epithel Cells (Auto) Urine Bacteria (Auto) 06/20/20 06/20/20 06/20/20 07:17 07:17 07:17 WBC 6.17 RBC 5.67 Hgb 15.3 Hct 47.5 MCV 83.8 MCH 27.0 MCHC 32.2 RDW Std Deviation 45.9 RDW Coeff of Maria Guadalupe 15.1 H Plt Count 191 MPV 10.4 Immature Gran % (Auto) 0.2 Neut % (Auto) 90.2 Lymph % (Auto) 4.4 [place] % (Auto) 5.0 Eos % (Auto) 0.0 Baso % (Auto) 0.2 Neut # (Auto) 5.57 Lymph # (Auto) 0.27 L [place] # (Auto) 0.31 Eos # (Auto) 0.00 Baso # (Auto) 0.01 Immature Gran # (Auto) 0.01 APTT PTT Ratio D-Dimer 910 H* Sodium 132 L Potassium 3.7 Chloride 94 L Carbon Dioxide 28 Anion Gap 10.0 BUN 46 H Creatinine 1.36 D Est Cr Clr Drug Dosing 49.5 Est GFR ( Amer) 57.8 Est GFR (Non-Af Amer) 49.8 BUN/Creatinine Ratio 33.8 H Glucose 73 POC Glucose Calcium 9.1 Magnesium 2.4 Total Bilirubin 0.4 AST 71 H ALT 26 Alkaline Phosphatase 112 Total Protein 8.4 H Albumin 2.7 L Globulin 5.7 H Albumin/Globulin Ratio 0.5 L Urine Color Urine Appearance Urine pH Ur Specific [place] Urine Protein Urine Glucose (UA) Urine Ketones Urine Blood Urine Nitrite Urine Bilirubin Urine Urobilinogen Ur Leukocyte Esterase Urine WBC (Auto) Urine RBC (Auto) U Hyaline Cast (Auto) U Epithel Cells (Auto) Urine Bacteria (Auto) 06/20/20 06/20/20 06/20/20 07:17 07:35 09:30 WBC RBC Hgb Hct MCV MCH MCHC RDW Std Deviation RDW Coeff of [place] Plt Count MPV Immature Gran % (Auto) Neut % (Auto) Lymph % (Auto) [place] % (Auto) Eos % (Auto) Baso % (Auto) Neut # (Auto) Lymph # (Auto) [place] # (Auto) Eos # (Auto) Baso # (Auto) Immature Gran # (Auto) APTT 60.1 H* PTT Ratio 2.2 D-Dimer Sodium Potassium Chloride Carbon Dioxide Anion Gap BUN Creatinine Est Cr Clr Drug Dosing Est GFR ( Amer) Est GFR (Non-Af Amer) BUN/Creatinine Ratio Glucose POC Glucose 83 Calcium Magnesium Total Bilirubin AST ALT Alkaline Phosphatase Total Protein Albumin Globulin Albumin/Globulin Ratio Urine Color Yellow Urine Appearance Clear Urine pH 5.0 Ur Specific [place] 1.016 Urine Protein 1+ H Urine Glucose (UA) Negative Urine Ketones Negative Urine Blood Trace H Urine Nitrite Negative Urine Bilirubin Negative Urine Urobilinogen Negative Ur Leukocyte Esterase Negative Urine WBC (Auto) Pending Urine RBC (Auto) Pending U Hyaline Cast (Auto) Pending U Epithel Cells (Auto) Pending Urine Bacteria (Auto) Pending
[2020-06-20 10:43] LABS: Appearance Urine Clear (Clear); Bacteria Urine Automated Negative (Negative); Bilirubin Urine Negative (Negative); Blood Urine Trace (Negative); Color Urine Yellow; Epithelial Cell Urine Auto 20-30 /lpf (0-5); Glucose Urine UA Negative (Negative); Ketones Urine Negative (Negative); Leukocyte Esterase Urine Negative (Negative); Nitrite Urine Negative (Negative); Protein Urine 1+ (Negative); RBC Urine Automated 0-4 /hpf (0-4); Specific Gravity Urine 1.016 (1.000-1.030); Urobilinogen Urine Negative (Negative)
[2020-06-20] MEDS ORDERED: POTASSIUM CHLORIDE CRTAB 20 MEQ TABCR PO ONE (10:59)
--- NOTE | 2020-06-20 11:39 | Pharmacy Report ---
Pharmacy Glycemic Short Note 2 - Date of Service June 20, 2020 - Glycemic Short BSG Results (Last 24 hours): 06/19/20 06/19/20 06/20/20 16:49 20:03 07:17 Glucose 73 POC Glucose 145 H 135 H 06/20/20 06/20/20 07:35 11:23 Glucose POC Glucose 83 133 H OUTPATIENT ANTIDIABETIC REGIMEN: * 70/30 insulin 25 units qam, 30 units qpm + ssi ASSESSMENT: 06/20 * Patient received total of 72 units of insulin yesterday, of which 50 were basal * Fasting BSG 83 mg/dL - decrease NPH per provider's order as PO intake poor this AM - give 25 units / per basal scale will get 5 units * Continue same CF/CR for now PLAN FOR INPATIENT GLYCEMIC CONTROL: * Hold outpatient oral diabetes medications * Basal insulin * NPH 25 units daily with dexamethasone * Lantus 5-10 units bid based upon BSG scale * Bolus insulin * NovoLog per scale ACHS or Q6hrs while NPO * Goal Range: Low 110 mg/dL - High 140 mg/dL * Correction Factor: 15 mg/dL/unit * Nutritional / Prandial insulin per carb ratio of 1 unit per 6 grams CHO consumed PLAN FOR DISCHARGE: * tbd
[2020-06-20] MEDS: AMIODARONE 200 MG TAB PO SCH ×2 (12:22→17:13)
[2020-06-20] MEDS: REMDESIVIR 100 MG in SODIUM CHLORIDE 0.9% 230 ML IV SCH (12:29)
[2020-06-20] MEDS: SODIUM CHLORIDE 0.9% 10ML FLUSH IV SCH (13:51)
[2020-06-20] MEDS ORDERED: chlorproMAZINE HCL 10 MG TAB PO ONE (16:45)
[2020-06-20] MEDS: POLYETHYLENE (MIRALAX) 17 GM PACK PO SCH (17:06)
[2020-06-20] MEDS: SENNA 8.6 MG TAB PO SCH (17:37)
[2020-06-20] MEDS: NYSTATIN SUSP 500,000 U/5 ML UDC PO SCH ×2 (17:37→20:23)
[2020-06-20] MEDS: DULoxetine HCL 30 MG CAP PO SCH (20:23)
--- NOTE | 2020-06-20 20:42 | Electrocardiogram Report ---
Test Reason : Blood Pressure : / mmHG Vent. Rate : 140 BPM Atrial Rate : 140 BPM P-R Int : 140 ms QRS Dur : 102 ms QT Int : 298 ms P-R-T Axes : 071 028 061 degrees QTc Int : 454 ms Sinus tachycardia with occasional , and consecutive Premature ventricular complexes Premature atrial complexes Possible Left atrial enlargement Nonspecific ST abnormality Abnormal ECG When compared with ECG of 18-JUN-2020 10:37, Premature ventricular complexes are now Present Borderline criteria for Lateral infarct are no longer Present Confirmed by Chuckie Jama ([id number]) on 06/20/2020 8:41:57 PM Referred By: REFERRED SELF Confirmed By:Chuckie Jama
[2020-06-20] MEDS ORDERED: [UNRECOGNIZED DRUG - REMARK] ONE (21:00)
--- NOTE | 2020-06-20 21:19 | Electrocardiogram Report ---
Test Reason : Blood Pressure : / mmHG Vent. Rate : 165 BPM Atrial Rate : 174 BPM P-R Int : 000 ms QRS Dur : 106 ms QT Int : 282 ms P-R-T Axes : 000 024 073 degrees QTc Int : 467 ms Poor data quality, interpretation may be adversely affected Atrial fibrillation with rapid ventricular response with premature ventricular or aberrantly conducte d complexes Nonspecific ST and T wave abnormality Abnormal ECG When compared with ECG of 19-JUN-2020 07:33, (unconfirmed) Atrial fibrillation has replaced Sinus rhythm Confirmed by Chuckie Jama ([id number] on 06/20/2020 9:18:33 PM Referred By: REFERRED SELF Confirmed By:Chuckie Jama
[2020-06-20] MEDS: HEPARIN SODIUM/DEXTROSE 25,000 UNITS/500 ML BAG IV SCH (22:35)
--- NOTE | 2020-06-20 23:25 | Hospitalist Progress Note ---
Date of Service June 20, 2020 Assessment & Plan (1) Acute hypoxemic respiratory failure: 2nd to acute on chronic systolic CHF and pneumonia due to COVID-19 virus infection. Diuresed, BUN rising; bumex placed on hold. Supportive care for COVID-19 pneumonia. Keep sats 90-94% with NC O2. (2) Atrial fibrillation with RVR: New onset. Improved/resolved with amiodarone infusion. Appreciate Dr Lawson's input; to transition to PO amiodarone later today. Heparin infusion - standard dosing. Continue metoprolol succinate. TSH and K/mag wnl. (3) Acute on chronic systolic ACC/AHA stage C congestive heart failure: Acute on chronic systolic CHF. CHF 2nd to ischemic cardiomyopathy. EF ~30% on echo done thru [facility] system earlier in 2019. Volume status improved. Looking more euvolemic today. IV bumex placed on hold by cardiology - agree with such. Cont metoprolol succinate; holding TIMMY/imdur but resume as BP allows. Stop topical nitrates. Serial BMP and magnesium levels. Appreciate cardiology assistance by Dr Lawson, [facility] cardiology. (4) Pneumonia due to COVID-19 virus: Awaiting convalescent plasma from [employer]; consent obtained. Day # 3 of 10 of dexamethasone 6 mg IV every morning. Remdesivir IV per protocol - day #3 of 5 today. Daily AST/ALT. Ventolin prn. Zinc sulfate daily x 10 days. Procalcitonin elevated; could have possible bacterial pneumonia in setting of COVID-19 infection. Also he is splenectomy state and therefore another risk factor for bacterial superinfection. Cont rocephin 2gm IV daily. Day #2. Changed zithromax (QTc prolongation as side effect) to doxycycline 100mg BID starting this am. Day #2 of atypical coverage. Cont pulmonary toilet - Flutter valve, Mucinex, Incentive spirometry. Keep sats 90-94%. Dimer this am noted. (5) Elevated troponin: Likely Myocardial demand ischemia in setting of COVID-19 infection, resp failure, rapid a.fib, etc. (6) Hyperglycemia due to type 2 diabetes mellitus: NPH 25 units daily to cover steroids. Lantus BID. Novolog correction & carb ratio. A1c 10.4%. (7) Gout: Continue allopurinol prophylaxis (8) Ischemic cardiomyopathy: EF 20-30% in the past. Cont BB. Holding TIMMY due to low-normal BPs. Cont asa/plavix. (9) Hypertension: See above re: low-normal BPs (10) Dyslipidemia: Hold atorvastatin given high AST and use of remdesivir (11) Intractable hiccups: Ongoing despite PPI + carafate Rx for GERD. ??subacute stroke as cause of hiccups? consider imaging when more stable from pulmonary standpoint. thorazine 10mg po x 1 now as a trial. watch QTc on tele. OF NOTE - THERE ARE SEVERAL CASE REPORTS OF HICCUPS BEING A SYMPTOM/SIGN OF COVID-19 INFECTION PER THE LITERATURE. 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 remained in NSR since. during the visit the pt again c/o intractable hiccups. have not improved w/ addition of carafate to PPI. also c/o possible thrush in mouth - making it hard to swallow. asks for constipation aids - often takes fiber back at snf. cough continues with brown sputum production at times. he has no dyspnea at rest but ZELAYA. no chest pain. no abd pain. Review of Systems Constitutional: + fatigue and + weakness; no fever (None since yesterday ) and no chills Respiratory: + dyspnea and + sputum production; no hemoptysis Cardiovascular: no chest pain, no paroxysmal nocturnal dyspnea and no palpitations Gastrointestinal: no abdominal pain Physical Exam Constitutional: + ill appearing and + frail appearing; no acute distress and no altered mental status looks better today ENMT: Mouth: + oral mucosal abnormality (Probable thrush plaques buccal mucosa ) Respiratory: no respiratory distress Auscultation: + rales (dry, fine, both bases); no wheezes Cardiovascular: Rate/Rhythm: regular rate and regular rhythm Heart Sounds: normal S1, normal S2 and + murmur (1/6 systolic LLSB) Vessels: posterior tibial pulses present and dorsalis pedis pulses present; no JVD Extremities: no edema Gastrointestinal (Abdomen): normal bowel sounds, soft, nontender, no hepatosplenomegaly Skin: no rashes Psychiatric: Orientation: alert and oriented x 3 Results & Data Results & Data ([facility]) Vital Signs (Past 12 Hours) Vital Signs Temp Pulse Resp BP Pulse Ox 06/20/20 21:05 36.7 C 94 H 18 129/74 91 06/20/20 15:41 36.6 C 84 22 121/84 95 Laboratory Results Laboratory Results - last 24 hr 06/19/20 06/20/20 06/20/20 22:44 07:17 07:17 WBC RBC Hgb Hct MCV MCH MCHC RDW Std Deviation RDW Coeff of Maria [place] Plt Count MPV Immature Gran % (Auto) Neut % (Auto) Lymph % (Auto) [place] % (Auto) Eos % (Auto) Baso % (Auto) Neut # (Auto) Lymph # (Auto) [place] # (Auto) Eos # (Auto) Baso # (Auto) Immature Gran # (Auto) APTT 66.1 H* PTT Ratio 2.4 D-Dimer 910 H* Sodium 132 L Potassium 3.7 Chloride 94 L Carbon Dioxide 28 Anion Gap 10.0 BUN 46 H Creatinine 1.36 D Est Cr Clr Drug Dosing 49.5 Est GFR ( Amer) 57.8 Est GFR (Non-Af Amer) 49.8 BUN/Creatinine Ratio 33.8 H Glucose 73 POC Glucose Calcium 9.1 Magnesium 2.4 Total Bilirubin 0.4 AST 71 H ALT 26 Alkaline Phosphatase 112 Total Protein 8.4 H Albumin 2.7 L Globulin 5.7 H Albumin/Globulin Ratio 0.5 L Urine Color Urine Appearance Urine pH Ur Specific [place] Urine Protein Urine Glucose (UA) Urine Ketones Urine Blood Urine Nitrite Urine Bilirubin Urine Urobilinogen Ur Leukocyte Esterase Urine WBC (Auto) Urine RBC (Auto) U Hyaline Cast (Auto) U Epithel Cells (Auto) Urine Bacteria (Auto) Granular Casts 06/20/20 06/20/20 06/20/20 07:17 07:17 07:35 WBC 6.17 RBC 5.67 Hgb 15.3 Hct 47.5 MCV 83.8 MCH 27.0 MCHC 32.2 RDW Std Deviation 45.9 RDW Coeff of [place] 15.1 H Plt Count 191 MPV 10.4 Immature Gran % (Auto) 0.2 Neut % (Auto) 90.2 Lymph % (Auto) 4.4 [place] % (Auto) 5.0 Eos % (Auto) 0.0 Baso % (Auto) 0.2 Neut # (Auto) 5.57 Lymph # (Auto) 0.27 L [place] # (Auto) 0.31 Eos # (Auto) 0.00 Baso # (Auto) 0.01 Immature Gran # (Auto) 0.01 APTT 60.1 H* PTT Ratio 2.2 D-Dimer Sodium Potassium Chloride Carbon Dioxide Anion Gap BUN Creatinine Est Cr Clr Drug Dosing Est GFR ( Amer) Est GFR (Non-Af Amer) BUN/Creatinine Ratio Glucose POC Glucose 83 Calcium Magnesium Total Bilirubin AST ALT Alkaline Phosphatase Total Protein Albumin Globulin Albumin/Globulin Ratio Urine Color Urine Appearance Urine pH Ur Specific [place] Urine Protein Urine Glucose (UA) Urine Ketones Urine Blood Urine Nitrite Urine Bilirubin Urine Urobilinogen Ur Leukocyte Esterase Urine WBC (Auto) Urine RBC (Auto) U Hyaline Cast (Auto) U Epithel Cells (Auto) Urine Bacteria (Auto) Granular Casts 06/20/20 06/20/20 06/20/20 09:30 11:23 16:17 WBC RBC Hgb Hct MCV MCH MCHC RDW Std Deviation RDW Coeff of [place] Plt Count MPV Immature Gran % (Auto) Neut % (Auto) Lymph % (Auto) [place] % (Auto) Eos % (Auto) Baso % (Auto) Neut # (Auto) Lymph # (Auto) [place] # (Auto) Eos # (Auto) Baso # (Auto) Immature Gran # (Auto) APTT PTT Ratio D-Dimer Sodium Potassium Chloride Carbon Dioxide Anion Gap BUN Creatinine Est Cr Clr Drug Dosing Est GFR ( Amer) Est GFR (Non-Af Amer) BUN/Creatinine Ratio Glucose POC Glucose 133 H 128 H Calcium Magnesium Total Bilirubin AST ALT Alkaline Phosphatase Total Protein Albumin Globulin Albumin/Globulin Ratio Urine Color Yellow Urine Appearance Clear Urine pH 5.0 Ur Specific [place] 1.016 Urine Protein 1+ H Urine Glucose (UA) Negative Urine Ketones Negative Urine Blood Trace H Urine Nitrite Negative Urine Bilirubin Negative Urine Urobilinogen Negative Ur Leukocyte Esterase Negative Urine WBC (Auto) 1-5 Urine RBC (Auto) 0-4 U Hyaline Cast (Auto) 10-30 H U Epithel Cells (Auto) 20-30 H Urine Bacteria (Auto) Negative Granular Casts 5-10 H 06/20/20 20:12 WBC RBC Hgb Hct MCV MCH MCHC RDW Std Deviation RDW Coeff of [place] Plt Count MPV Immature Gran % (Auto) Neut % (Auto) Lymph % (Auto) [place] % (Auto) Eos % (Auto) Baso % (Auto) Neut # (Auto) Lymph # (Auto) [place] # (Auto) Eos # (Auto) Baso # (Auto) Immature Gran # (Auto) APTT PTT Ratio D-Dimer Sodium Potassium Chloride Carbon Dioxide Anion Gap BUN Creatinine Est Cr Clr Drug Dosing Est GFR ( Amer) Est GFR (Non-Af Amer) BUN/Creatinine Ratio Glucose POC Glucose 260 H Calcium Magnesium Total Bilirubin AST ALT Alkaline Phosphatase Total Protein Albumin Globulin Albumin/Globulin Ratio Urine Color Urine Appearance Urine pH Ur Specific [place] Urine Protein Urine Glucose (UA) Urine Ketones Urine Blood Urine Nitrite Urine Bilirubin Urine Urobilinogen Ur Leukocyte Esterase Urine WBC (Auto) Urine RBC (Auto) U Hyaline Cast (Auto) U Epithel Cells (Auto) Urine Bacteria (Auto) Granular Casts PG Care Time/CCT Total # of Minutes Spent Total Time Spent with Patient: Total time spent is greater than 50% in coordination of care (as documented) at patient's floor/unit and/or counseling patient: Coding Level of Care Code 21518 Subseq Hosp Care Lvl 3 Diagnoses Acute hypoxemic respiratory failure J96.01 Atrial fibrillation with RVR I48.91 Acute on chronic systolic ACC/AHA stage C congestive heart failure I50.23 Pneumonia due to COVID-19 virus U07.1; J12.89 Elevated troponin R77.8 Hyperglycemia due to type 2 diabetes mellitus E11.65 Gout M10.9 Ischemic cardiomyopathy I25.5 Hypertension I10 Dyslipidemia E78.5 Intractable hiccups R06.6 Mitral regurgitation I34.0 Hyponatremia E87.1 H/O splenectomy Z90.81 Constipation K59.00 Candidiasis of mouth and esophagus B37.81; B37.0 DVT prophylaxis Z29.9
[2020-06-21 07:23] LABS: Calcium 8.6 mg/dl (8.5-10.1); Creatinine Clr Calc Pharmacy 56.1 ml/min; Est GFR (African American) 67.2; Potassium 3.8 mmol/L (3.5-5.1)
[2020-06-21 07:35] LABS: Partial Thromboplastin Ratio 1.9
[2020-06-21 07:46] LABS: Partial Thromboplastin Time 53.6 Seconds (21.0-31.0)
[2020-06-21 07:47] LABS: Echinocytes 1+; Hematocrit (blood only) 44.3 % (42-52); Hemoglobin 15.2 g/dL (14.0-18.0); Mean Corpuscular Hemoglobin 27.9 pg (25-34); Mean Corpuscular Hgb Conc 34.3 g/dL (32-36); Mean Corpuscular Volume 81.3 fL (80-100); Platelet Count 219 K/uL (130-400); Red Blood Count 5.45 M/uL (4.7-6.1); White Blood Count 7.65 K/uL (4.8-10.8)
[2020-06-21 07:48] LABS: D Dimer 580 ug/L FEU (0-500)
[2020-06-21 07:55] LABS: ALC (manual) 0.54 K/uL (1.2-3.4); ANC (manual) 6.66 K/uL (1.4-6.5); Lymphocytes # (manual) 0.54 K/uL (1.2-3.4); Monocytes # (manual) 0.46 K/uL (0.11-0.59); Neutrophils # (manual) 6.66 K/uL (1.4-6.5)
[2020-06-21] MEDS: NYSTATIN SUSP 500,000 U/5 ML UDC PO SCH ×4 (09:08→19:28)
[2020-06-21] MEDS: ASPIRIN 81 MG ECTAB PO SCH (09:21)
[2020-06-21] MEDS: cefTRIAXone SODIUM 2,000 MG in DEXTROSE 5% 50 ML IV SCH (09:21)
[2020-06-21] MEDS: DOXYCYCLINE HYCLATE 100 MG in DEXTROSE 5% 100 ML IV SCH ×2 (09:21→19:28)
[2020-06-21] MEDS: dexAMETHasone 6 MG in SYRINGE 0 ML IV SCH (09:21)
[2020-06-21] MEDS: METOPROLOL SUCC 50MG EXT REL TAB PO SCH (09:22)
[2020-06-21] MEDS: ZINC SULFATE 220 MG CAPSULE PO SCH (09:22)
[2020-06-21] MEDS: AMIODARONE 200 MG TAB PO SCH ×3 (09:22→16:05)
[2020-06-21] MEDS: SENNA 8.6 MG TAB PO SCH (09:22)
[2020-06-21] MEDS: CALCIUM 600MG + VIT D 400 IU TAB PO SCH (09:22)
[2020-06-21] MEDS: DOCUSATE SODIUM 100 MG CAP PO SCH (09:22)
[2020-06-21] MEDS: PANTOprazole 40 MG TAB PO SCH (09:23)
[2020-06-21] MEDS: POLYETHYLENE (MIRALAX) 17 GM PACK PO SCH (09:25)
[2020-06-21] MEDS: CLOPIDOGREL BISULFATE 75 MG TAB PO SCH (09:25)
[2020-06-21] MEDS: allopurinoL 300 MG TAB PO SCH (09:26)
[2020-06-21] MEDS: INSULIN ASPART 100 UNITS/ML 3 ML PEN SC SCH ×4 (09:34→20:43)
[2020-06-21] MEDS: INSULIN GLARGINE 100 UNIT/ML VIAL SC SCH ×2 (09:36→20:43)
[2020-06-21] MEDS: INSULIN HUMAN NPH SC SCH (09:37)
[2020-06-21] MEDS: SUCRALFATE 1 GM/10 ML UDC PO SCH ×4 (11:00→19:28)
--- NOTE | 2020-06-21 12:42 | Cardiology Progress Note ---
Date of Service June 21, 2020 Assessment & Plan (1) Paroxysmal atrial fibrillation with rapid ventricular response: Patient continues to maintain sinus rhythm on oral amiodarone. Plan: Review EKG when available. Continue amiodarone 200 mg 3 times per day x3 days then reduce to twice daily Add metabolic panel for check AST and ALT given chronic elevation and addition of antiarrhythmic therapy (2) Pneumonia due to COVID-19 virus: Oxygen saturations being maintained while at rest but desats with activity (3) Acute hypoxemic respiratory failure: (4) Ischemic cardiomyopathy: Will resume oral Bumex today with additional IV dosing as necessary for positive fluid gains Continue to hold lisinopril initially restart as hemodynamic stability observed (5) Chronic systolic (congestive) heart failure: (6) Elevated troponin: Admission and Anticipated Discharge Date Admission Date: June 18, 2020 Subjective Patient not examined an attempt to minimize PPE use and exposure. Records and telemetry reviewed Case discussed with caregivers Patient has maintained sinus rhythm. EKG pending from today Physical Exam Physical Exam: Patient not examined Results & Data ([facility]) Vital Signs (Past 12 Hours) Vital Signs Temp Pulse Resp BP Pulse Ox 06/21/20 10:56 36.6 C 80 20 117/80 93 06/21/20 07:44 36.5 C 80 22 114/84 90 06/21/20 04:02 36.4 C L 109 H 17 119/87 92 Laboratory Results Laboratory Results - last 24 hr 06/20/20 06/20/20 06/21/20 16:17 20:12 06:36 WBC RBC Hgb Hct MCV MCH MCHC Plt Count Neutrophils % (Manual) Lymphocytes % (Manual) Monocytes % (Manual) Neutrophils # (Manual) Total Absolute Neuts Lymphocytes # (Manual) Total Abs Lymphocytes Monocytes # (Manual) Echinocytes APTT PTT Ratio D-Dimer Sodium 133 L Potassium 3.8 Chloride 100 Carbon Dioxide 26 Anion Gap 7.0 BUN 40 H Creatinine 1.20 Est Cr Clr Drug Dosing 56.1 Est GFR ( Amer) 67.2 Est GFR (Non-Af Amer) 58.0 BUN/Creatinine Ratio 33.0 H Glucose 93 POC Glucose 128 H 260 H Calcium 8.6 06/21/20 06/21/20 06/21/20 06:36 06:36 07:56 WBC 7.65 RBC 5.45 Hgb 15.2 Hct 44.3 MCV 81.3 MCH 27.9 MCHC 34.3 Plt Count 219 Neutrophils % (Manual) 87.0 Lymphocytes % (Manual) 7.0 Monocytes % (Manual) 6.0 Neutrophils # (Manual) 6.66 H Total Absolute Neuts 6.66 H Lymphocytes # (Manual) 0.54 L Total Abs Lymphocytes 0.54 L Monocytes # (Manual) 0.46 Echinocytes 1+ APTT 53.6 H* PTT Ratio 1.9 D-Dimer 580 H* Sodium Potassium Chloride Carbon Dioxide Anion Gap BUN Creatinine Est Cr Clr Drug Dosing Est GFR ( Amer) Est GFR (Non-Af Amer) BUN/Creatinine Ratio Glucose POC Glucose 99 Calcium 06/21/20 11:11 WBC RBC Hgb Hct MCV MCH MCHC Plt Count Neutrophils % (Manual) Lymphocytes % (Manual) Monocytes % (Manual) Neutrophils # (Manual) Total Absolute Neuts Lymphocytes # (Manual) Total Abs Lymphocytes Monocytes # (Manual) Echinocytes APTT PTT Ratio D-Dimer Sodium Potassium Chloride Carbon Dioxide Anion Gap BUN Creatinine Est Cr Clr Drug Dosing Est GFR ( Amer) Est GFR (Non-Af Amer) BUN/Creatinine Ratio Glucose POC Glucose 167 H Calcium
--- NOTE | 2020-06-21 13:04 | Pharmacy Report ---
Pharmacy Glycemic Short Note 2 - Date of Service June 21, 2020 - Glycemic Short BSG Results (Last 24 hours): 06/20/20 06/20/20 06/21/20 16:17 20:12 06:36 Glucose 93 POC Glucose 128 H 260 H 06/21/20 06/21/20 07:56 11:11 Glucose POC Glucose 99 167 H OUTPATIENT ANTIDIABETIC REGIMEN: * 70/30 insulin 25 units qam, 30 units qpm + ssi ASSESSMENT: 06/21 * 37 units SQ insulin administered over last 24 hrs * Most BSGs at goal over last 24 hrs w/ the exception of HS hyperglycemia * Dexamethasone IV, broad spectrum abx and heparin gtt continue at this time. PO intake appears poor. * Current insulin orders appear appropriate to continue for the next 24 hrs, however given this patient's poor PO intake we may need to scale back insulin (NPH + Lantus) doses in the near future 06/20 * Patient received total of 72 units of insulin yesterday, of which 50 were basal * Fasting BSG 83 mg/dL - decrease NPH per provider's order as PO intake poor this AM - give 25 units / per basal scale will get 5 units * Continue same CF/CR for now PLAN FOR INPATIENT GLYCEMIC CONTROL: * Hold outpatient oral diabetes medications * Basal insulin * NPH 25 units daily in the AM with dexamethasone IV * Lantus 5-10 units bid based upon BSG scale * Bolus insulin * NovoLog per scale ACHS or Q6hrs while NPO * Goal Range: Low 110 mg/dL - High 140 mg/dL * Correction Factor: 18 mg/dL/unit * Nutritional / Prandial insulin per carb ratio of 1 unit per 6 grams CHO consumed PLAN FOR DISCHARGE: * to be determined
[2020-06-21] MEDS: REMDESIVIR 100 MG in SODIUM CHLORIDE 0.9% 230 ML IV SCH (13:21)
[2020-06-21] MEDS: BUMETANIDE 1 MG TAB PO SCH (14:22)
--- NOTE | 2020-06-21 14:41 | Electrocardiogram Report ---
Test Reason : Blood Pressure : / mmHG Vent. Rate : 079 BPM Atrial Rate : 079 BPM P-R Int : 140 ms QRS Dur : 110 ms QT Int : 428 ms P-R-T Axes : 058 015 041 degrees QTc Int : 490 ms Sinus rhythm with occasional Premature ventricular complexes Possible Left atrial enlargement Nonspecific T wave abnormality Abnormal ECG When compared with ECG of 19-JUN-2020 12:13, Sinus rhythm has replaced Atrial fibrillation Vent. rate has decreased BY 86 BPM Nonspecific T wave abnormality now evident in Inferior leads Confirmed by Khoa Rangel ([id number]) on 06/21/2020 2:41:33 PM Referred By: REFERRED SELF Confirmed By:Khoa Rangel
[2020-06-21] MEDS: SODIUM CHLORIDE 0.9% 10ML FLUSH IV SCH (14:48)
[2020-06-21] MEDS ORDERED: chlorproMAZINE HCL 10 MG TAB PO ONE (15:00)
[2020-06-21] MEDS: HEPARIN SODIUM/DEXTROSE 25,000 UNITS/500 ML BAG IV SCH (17:28)
[2020-06-21] MEDS: DULoxetine HCL 30 MG CAP PO SCH (19:29)
--- NOTE | 2020-06-21 19:50 | Hospitalist Progress Note ---
Date of Service June 21, 2020 Assessment & Plan (1) Acute hypoxemic respiratory failure: 2nd to acute on chronic systolic CHF and pneumonia due to COVID-19 virus infection. Oral bumex resumed. Supportive care for COVID-19 pneumonia. See below. Discussed self-proning; encouraged guards to let patient do so. Keep sats 90-94% with NC O2. (2) Atrial fibrillation with RVR: New onset. Resolved with amiodarone infusion. Appreciate Dr Lawson's input. Continue amiodarone 200mg TID. Heparin infusion - standard dosing. Continue metoprolol succinate. TSH and K/mag wnl. (3) Acute on chronic systolic ACC/AHA stage C congestive heart failure: Acute on chronic systolic CHF. CHF 2nd to ischemic cardiomyopathy. EF ~30% on echo done thru [facility] earlier in 2019. Volume status improved. Oral bumex resumed today. Cont metoprolol succinate; holding TIMMY/imdur but resume as BP allows. Serial BMP and magnesium levels. Appreciate cardiology assistance by Dr Lawson, [facility] cardiology. (4) Pneumonia due to COVID-19 virus: Awaiting convalescent plasma from [employer]; consent obtained. Day # 4 of 10 of dexamethasone 6 mg IV every morning. Remdesivir IV per protocol - day #4 of 5 today. Daily AST/ALT. Ventolin prn. Zinc sulfate daily x 10 days. Procalcitonin elevated; could have possible bacterial pneumonia in setting of COVID-19 infection. Also he is splenectomy state and therefore another risk factor for bacterial superinfection. Cont rocephin 2gm IV daily. Day #3. Changed zithromax (QTc prolongation as side effect) to doxycycline 100mg BID starting this am. Day #3 of atypical coverage. Cont pulmonary toilet - Flutter valve, Mucinex, Incentive spirometry. Keep sats 90-94%. Self-prone as much as possible. Dimer this am noted. (5) Elevated troponin: Likely Myocardial demand ischemia in setting of COVID-19 infection, resp failure, rapid a.fib, etc. (6) Hyperglycemia due to type 2 diabetes mellitus: NPH 25 units daily to cover steroids. Lantus BID. Novolog correction & carb ratio. A1c 10.4%. Pharmacy assistance appreciated. (7) Gout: Continue allopurinol prophylaxis (8) Ischemic cardiomyopathy: EF 20-30% in the past. Cont BB. Holding TIMMY due to low-normal BPs. Cont asa/plavix. (9) Hypertension: See above re: low-normal BPs (10) Dyslipidemia: Hold atorvastatin given high AST and use of remdesivir (11) Intractable hiccups: Ongoing despite PPI + carafate Rx for GERD. ??subacute stroke as cause of hiccups? consider imaging when more stable from pulmonary standpoint. thorazine 10mg po x 1 again today; helped with symptoms yesterday and tolerated without side effects. QTc 490 - need to watch this carefully given amiodarone use. OF NOTE - THERE ARE SEVERAL CASE REPORTS OF HICCUPS BEING A SYMPTOM/SIGN OF COVID-19 INFECTION PER THE LITERATURE. 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 however hiccups have come back. continues with cough and ZELAYA. spending most time in the bed. we discussed self-proning. still with mouth pain. no cp. no orthopnea. no abd pain, diarrhea or emesis. tele overnight - NSR. Review of Systems Constitutional: + fatigue and + anorexia; no fever and no chills Ear, Nose, Mouth, Throat: + mouth lesions Respiratory: no hemoptysis Cardiovascular: no chest pain and no orthopnea Gastrointestinal: no abdominal pain Physical Exam Constitutional: + ill appearing and + frail appearing; no acute distress and no altered mental status ENMT: Mouth: + oral mucosal abnormality (Probable thrush plaques buccal mucosa ) Respiratory: no respiratory distress Auscultation: + rales (dry, fine, both bases); no wheezes Cardiovascular: Rate/Rhythm: regular rate and regular rhythm Heart Sounds: normal S1, normal S2 and + murmur (1/6 systolic LLSB) Vessels: + JVD (?mild), posterior tibial pulses present and dorsalis pedis pulses present Extremities: no edema Gastrointestinal (Abdomen): normal bowel sounds, soft, nontender, no hepatosplenomegaly Skin: no rashes Psychiatric: Orientation: alert and oriented x 3 Results & Data Results & Data ([facility]) Vital Signs (Past 12 Hours) Vital Signs Temp Pulse Resp BP Pulse Ox 06/21/20 19:25 93 H 18 122/68 90 06/21/20 14:52 36.5 C 84 20 112/74 92 06/21/20 10:56 36.6 C 80 20 117/80 93 Laboratory Results Laboratory Results - last 24 hr 06/20/20 06/21/20 06/21/20 20:12 06:36 06:36 WBC 7.65 RBC 5.45 Hgb 15.2 Hct 44.3 MCV 81.3 MCH 27.9 MCHC 34.3 Plt Count 219 Neutrophils % (Manual) 87.0 Lymphocytes % (Manual) 7.0 Monocytes % (Manual) 6.0 Neutrophils # (Manual) 6.66 H Total Absolute Neuts 6.66 H Lymphocytes # (Manual) 0.54 L Total Abs Lymphocytes 0.54 L Monocytes # (Manual) 0.46 Echinocytes 1+ APTT PTT Ratio D-Dimer Sodium 133 L Potassium 3.8 Chloride 100 Carbon Dioxide 26 Anion Gap 7.0 BUN 40 H Creatinine 1.20 Est Cr Clr Drug Dosing 56.1 Est GFR ( Amer) 67.2 Est GFR (Non-Af Amer) 58.0 BUN/Creatinine Ratio 33.0 H Glucose 93 POC Glucose 260 H Calcium 8.6 06/21/20 06/21/20 06/21/20 06:36 07:56 11:11 WBC RBC Hgb Hct MCV MCH MCHC Plt Count Neutrophils % (Manual) Lymphocytes % (Manual) Monocytes % (Manual) Neutrophils # (Manual) Total Absolute Neuts Lymphocytes # (Manual) Total Abs Lymphocytes Monocytes # (Manual) Echinocytes APTT 53.6 H* PTT Ratio 1.9 D-Dimer 580 H* Sodium Potassium Chloride Carbon Dioxide Anion Gap BUN Creatinine Est Cr Clr Drug Dosing Est GFR ( Amer) Est GFR (Non-Af Amer) BUN/Creatinine Ratio Glucose POC Glucose 99 167 H Calcium 06/21/20 16:45 WBC RBC Hgb Hct MCV MCH MCHC Plt Count Neutrophils % (Manual) Lymphocytes % (Manual) Monocytes % (Manual) Neutrophils # (Manual) Total Absolute Neuts Lymphocytes # (Manual) Total Abs Lymphocytes Monocytes # (Manual) Echinocytes APTT PTT Ratio D-Dimer Sodium Potassium Chloride Carbon Dioxide Anion Gap BUN Creatinine Est Cr Clr Drug Dosing Est GFR ( Amer) Est GFR (Non-Af Amer) BUN/Creatinine Ratio Glucose POC Glucose 277 H Calcium PG Care Time/CCT Total # of Minutes Spent Total Time Spent with Patient: Total time spent is greater than 50% in coordination of care (as documented) at patient's floor/unit and/or counseling patient: Coding Level of Care Code 29378 Subseq Hosp Care Lvl 3 Diagnoses Acute hypoxemic respiratory failure J96.01 Atrial fibrillation with RVR I48.91 Acute on chronic systolic ACC/AHA stage C congestive heart failure I50.23 Pneumonia due to COVID-19 virus U07.1; J12.89 Elevated troponin R77.8 Hyperglycemia due to type 2 diabetes mellitus E11.65 Gout M10.9 Ischemic cardiomyopathy I25.5 Hypertension I10 Dyslipidemia E78.5 Intractable hiccups R06.6 Mitral regurgitation I34.0 Hyponatremia E87.1 H/O splenectomy Z90.81 Constipation K59.00 Candidiasis of mouth and esophagus B37.81; B37.0 DVT prophylaxis Z29.9
[2020-06-22] MEDS: cefTRIAXone SODIUM 2,000 MG in DEXTROSE 5% 50 ML IV SCH (08:55)
[2020-06-22] MEDS: DOCUSATE SODIUM 100 MG CAP PO SCH (08:56)
[2020-06-22] MEDS: BUMETANIDE 1 MG TAB PO SCH (08:56)
[2020-06-22] MEDS: AMIODARONE 200 MG TAB PO SCH ×3 (08:56→18:09)
[2020-06-22] MEDS: allopurinoL 300 MG TAB PO SCH (08:56)
[2020-06-22] MEDS: SUCRALFATE 1 GM/10 ML UDC PO SCH ×4 (08:57→20:02)
[2020-06-22] MEDS: CALCIUM 600MG + VIT D 400 IU TAB PO SCH (08:57)
[2020-06-22] MEDS: POLYETHYLENE (MIRALAX) 17 GM PACK PO SCH (08:57)
[2020-06-22] MEDS: NYSTATIN SUSP 500,000 U/5 ML UDC PO SCH ×4 (08:57→20:02)
[2020-06-22] MEDS: ZINC SULFATE 220 MG CAPSULE PO SCH (08:57)
[2020-06-22] MEDS: SENNA 8.6 MG TAB PO SCH (08:58)
[2020-06-22] MEDS: PANTOprazole 40 MG TAB PO SCH (08:58)
[2020-06-22] MEDS: ASPIRIN 81 MG ECTAB PO SCH (08:58)
[2020-06-22] MEDS: CLOPIDOGREL BISULFATE 75 MG TAB PO SCH (08:58)
[2020-06-22] MEDS: METOPROLOL SUCC 50MG EXT REL TAB PO SCH (08:58)
[2020-06-22] MEDS: dexAMETHasone 6 MG in SYRINGE 0 ML IV SCH (08:59)
[2020-06-22] MEDS: INSULIN ASPART 100 UNITS/ML 3 ML PEN SC SCH ×4 (09:12→21:42)
[2020-06-22] MEDS: INSULIN HUMAN NPH SC SCH (09:13)
[2020-06-22 09:14] LABS: Albumin Level 2.3 gm/dl (3.4-5.0); BUN Creatinine Ratio 32.2 (10-20); Calcium 9.1 mg/dl (8.5-10.1); Creatinine Clr Calc Pharmacy 63.5 ml/min; Est GFR (African American) 74.7; Est GFR (Non-African American) 64.4; Potassium 3.5 mmol/L (3.5-5.1)
[2020-06-22 09:17] LABS: Albumin Globulin Ratio 0.5 (0.9-2); Bilirubin,Total 0.5 mg/dl (0.2-1); Total Protein 7.3 gm/dl (6.4-8.2)
[2020-06-22 09:33] LABS: Partial Thromboplastin Ratio 1.4; Partial Thromboplastin Time 39.8 Seconds (21.0-31.0)
[2020-06-22] MEDS: INSULIN GLARGINE 100 UNIT/ML VIAL SC SCH (10:29)
[2020-06-22] MEDS: DOXYCYCLINE HYCLATE 100 MG in DEXTROSE 5% 100 ML IV SCH ×2 (10:30→21:10)
[2020-06-22] MEDS ORDERED: chlorproMAZINE HCL 10 MG TAB PO ONE ×2 (11:04→15:35)
[2020-06-22] MEDS ORDERED: INSULIN HUMAN NPH SC ONE (12:30)
[2020-06-22] MEDS: REMDESIVIR 100 MG in SODIUM CHLORIDE 0.9% 230 ML IV SCH (12:40)
--- NOTE | 2020-06-22 12:51 | Pharmacy Report ---
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 Pre-lunch hyperglycemia developed as a result. Unclear what patient was given to correct hypoglycemia this AM. Plan to give 20units NPH at noon today to address hyperglycemia that is likely to ensue. BID Lantus will be changed to once daily in the AM at a reduced dose. * Novolog will continue at "severe" stress dosing / * 37 units SQ insulin administered over last 24 hrs * Most BSGs at goal over last 24 hrs w/ the exception of HS hyperglycemia * Dexamethasone IV, broad spectrum abx and heparin gtt continue at this time. PO intake appears poor. * Current insulin orders appear appropriate to continue for the next 24 hrs, however given this patient's poor PO intake we may need to scale back insulin (NPH + Lantus) doses in the near future 06/20 * Patient received total of 72 units of insulin yesterday, of which 50 were basal * Fasting BSG 83 mg/dL - decrease NPH per provider's order as PO intake poor this AM - give 25 units / per basal scale will get 5 units * Continue same CF/CR for now PLAN FOR INPATIENT GLYCEMIC CONTROL: * Hold outpatient oral diabetes medications * Basal insulin * NPH 20 units x 1 w/ lunch to address hyperglycemia from steroid admin. Then 25 units daily in the AM with dexamethasone IV * Lantus 5 units Q AM * Bolus insulin * NovoLog per scale ACHS or Q6hrs while NPO * Goal Range: Low 110 mg/dL - High 140 mg/dL * Correction Factor: 18 mg/dL/unit * Nutritional / Prandial insulin per carb ratio of 1 unit per 6 grams CHO consumed PLAN FOR DISCHARGE: * to be determined
[2020-06-22] MEDS: SODIUM CHLORIDE 0.9% 10ML FLUSH IV SCH (14:07)
[2020-06-22] MEDS ORDERED: POTASSIUM CHLORIDE CRTAB 20 MEQ TABCR PO ONE (14:08)
--- NOTE | 2020-06-22 14:15 | Cardiology Progress Note ---
Date of Service June 22, 2020 Assessment & Plan (1) Paroxysmal atrial fibrillation with rapid ventricular response: Patient continues to maintain sinus rhythm on oral amiodarone. Plan: Reduce amiodarone to twice daily tomorrow On anticoagulation with IV heparin. Suspect patient will benefit from long-term anticoagulation with warfarin once hemodynamically stable (2) Pneumonia due to COVID-19 virus: Oxygen saturations being maintained while at rest but desats with activity and positioning (3) Acute hypoxemic respiratory failure: (4) Ischemic cardiomyopathy: Volume status relatively stable though continues to receive significant IV fluids secondary to medications. Expect to reduce somewhat as he completes remdesivir We will give additional 0.5 mg IV Bumex today, supplement potassium (5) Chronic systolic (congestive) heart failure: (6) Elevated troponin: Admission and Anticipated Discharge Date Admission Date: June 18, 2020 Subjective Chart reviewed telemetry reviewed care discussed with caregivers Patient not examined Has demanded increase in oxygen supplementation very positional nature improved with prone position Telemetry without further arrhythmias or atrial fibrillation Physical Exam Physical Exam: Patient not personally examined Results & Data ([facility]) Vital Signs (Past 12 Hours) Vital Signs Temp Pulse Pulse Resp BP BP Pulse Ox 06/22/20 12:02 37 C 78 22 119/77 98 06/22/20 09:00 85 06/22/20 08:00 36.8 C 64 26 H 133/79 89 L 06/22/20 04:53 36.4 C L 83 22 122/71 87 L
[2020-06-22] MEDS ORDERED: BUMETANIDE 0.5 MG in SYRINGE 0 ML IV ONE (14:30)
[2020-06-22 18:45] LABS: Partial Thromboplastin Ratio 1.3; Partial Thromboplastin Time 35.3 Seconds (21.0-31.0)
[2020-06-22] MEDS ORDERED: HEPARIN IV BOLUS 3,000 UNITS in SYRINGE 0 ML IV ONE (19:35)
[2020-06-22] MEDS: DULoxetine HCL 30 MG CAP PO SCH (20:02)
--- NOTE | 2020-06-22 23:01 | Hospitalist Progress Note ---
Date of Service June 22, 2020 Assessment & Plan (1) Acute hypoxemic respiratory failure: 2nd to acute on chronic systolic CHF and pneumonia due to COVID-19 virus infection. Oral bumex resumed by cardiology today- previously was decompensated and received IV bumex for such. Supportive care for COVID-19 pneumonia. See below. Keep sats 90-94% with NC O2. Unfortunately he is now requiring "wall" HFNC for increased work of breathing but is much more comfortable with such. No distress during my visit. (2) Atrial fibrillation with RVR: New onset earlier this admission. Resolved with amiodarone infusion. Appreciate Dr Lawson's input. Continue amiodarone 200mg TID. Heparin infusion - standard dosing. Continue metoprolol succinate. TSH and K/mag wnl. Brief runs of a.fib/flutter yesterday but spontaneously converted back to sinus. (3) Acute on chronic systolic ACC/AHA stage C congestive heart failure: Acute on chronic systolic CHF. CHF 2nd to ischemic cardiomyopathy. EF ~30% on echo done thru correction system earlier in 2019. Recent IV bumex; now back to oral bumex. Cont metoprolol succinate; holding TIMMY/imdur but resume as BP allows. Serial BMP and magnesium levels. Appreciate cardiology assistance by Dr Lawson, [facility] cardiology. (4) Pneumonia due to COVID-19 virus: Awaiting convalescent plasma from [place]; consent obtained. Day # 5 of 10 of dexamethasone 6 mg IV every morning. Remdesivir IV per protocol - day #5 of 5 today. Daily AST/ALT have been stable. Ventolin prn. Zinc sulfate daily x 10 days. Procalcitonin elevated; could have possible bacterial pneumonia in setting of COVID-19 infection. Also he is splenectomy state and therefore another risk factor for bacterial superinfection. Cont rocephin 2gm IV daily. Day #4. Cont doxy IV - Day #4 of atypical coverage. Cont pulmonary toilet - Flutter valve, Mucinex, Incentive spirometry. Keep sats 90-94%. Self-prone as much as possible. Dimer this am noted -- trending down. Check cxr in am. Check procal in am. I am concerned by his escalating O2 requirements. (5) Elevated troponin: Likely Myocardial demand ischemia in setting of COVID-19 infection, resp failure, rapid a.fib, etc. (6) Hyperglycemia due to type 2 diabetes mellitus: NPH 25 units daily to cover steroids. Lantus. Novolog correction & carb ratio. A1c 10.4%. Pharmacy assistance appreciated. (7) Gout: Continue allopurinol prophylaxis (8) Ischemic cardiomyopathy: EF 20-30% in the past. Cont BB. Holding TIMMY due to low-normal BPs. Cont asa/plavix. (9) Hypertension: See above re: low-normal BPs (10) Dyslipidemia: Hold atorvastatin given high AST and use of remdesivir (11) Intractable hiccups: Ongoing despite PPI + carafate Rx for GERD. ??subacute stroke as cause of hiccups? consider imaging when more stable from pulmonary standpoint. thorazine 10mg po x 1 again today; helped with symptoms yesterday and tolerated without side effects. he ultimately required a 2nd dose of thorazine today. QTc -- need to watch this carefully given amiodarone use. OF NOTE - THERE ARE SEVERAL CASE REPORTS OF HICCUPS BEING A SYMPTOM/SIGN OF COVID-19 INFECTION PER THE LITERATURE. (12) Mitral regurgitation: as seen on prior echos (13) Hyponatremia: improved w/ diuresis to 137 bmp am (14) H/O splenectomy: noted (15) Constipation: miralax w senna improved (16) Candidiasis of mouth and esophagus: nystatin minoo 5cc qid improving (17) DVT prophylaxis: heparin infusion - standard dosing prognosis guarded given his numerous medical issues and worsening O2 requirements Admission and Anticipated Discharge Date Admission Date: June 18, 2020 Subjective tele overnight -- had 2 runs of aflutter/fib; both spontaneously converted back to NSR. otherwise is spending most time in NSR. pt's biggest complaint is that of ongoing hiccups. did respond to low-dose thorazine yesterday. he continues to cough. 1 episode of minor, streaky blood. most sputum is brown in color. he c/o dyspnea and ZELAYA. he reports self-proning. he is using his flutter. had bowel movement today. eating, and having no nausea or emesis. Review of Systems Constitutional: + weakness; no fever, no chills and no body aches Respiratory: no wheezing Cardiovascular: no chest pain Gastrointestinal: no abdominal pain Physical Exam Constitutional: + ill appearing and + frail appearing; no acute distress and no altered mental status having hiccups ENMT: Mouth: oral mucous membranes not dry Respiratory: no respiratory distress Auscultation: + rales (dry, fine, both bases); no wheezes Cardiovascular: Rate/Rhythm: regular rate and regular rhythm Heart Sounds: normal S1, normal S2 and + murmur (1/6 systolic LLSB) Vessels: posterior tibial pulses present and dorsalis pedis pulses present; no JVD Extremities: no edema Gastrointestinal (Abdomen): normal bowel sounds, soft, nontender, no hepatosplenomegaly Skin: no rashes Psychiatric: Orientation: alert and oriented x 3 Results & Data Results & Data ([facility]) Vital Signs (Past 12 Hours) Vital Signs Temp Pulse Pulse Resp BP Pulse Ox 06/22/20 19:45 36.6 C 80 20 127/84 96 06/22/20 17:06 84 06/22/20 16:05 36.8 C 81 24 123/80 95 06/22/20 12:02 37 C 78 22 119/77 98 Laboratory Results Laboratory Results - last 24 hr 06/22/20 06/22/20 06/22/20 07:52 08:00 08:01 APTT 39.8 H PTT Ratio 1.4 Sodium 137 Potassium 3.5 Chloride 101 Carbon Dioxide 30 Anion Gap 6.0 BUN 35 H Creatinine 1.10 Est Cr Clr Drug Dosing 63.5 Est GFR ( Amer) 74.7 Est GFR (Non-Af Amer) 64.4 BUN/Creatinine Ratio 32.2 H Glucose 63 L POC Glucose 69 L* Calcium 9.1 Total Bilirubin 0.5 AST 42 H ALT 23 Alkaline Phosphatase 131 H Total Protein 7.3 Albumin 2.3 L Globulin 5.0 H Albumin/Globulin Ratio 0.5 L 06/22/20 06/22/20 06/22/20 08:02 12:01 15:36 APTT Cancelled PTT Ratio Cancelled Sodium Potassium Chloride Carbon Dioxide Anion Gap BUN Creatinine Est Cr Clr Drug Dosing Est GFR ( Amer) Est GFR (Non-Af Amer) BUN/Creatinine Ratio Glucose POC Glucose 68 L* 226 H Calcium Total Bilirubin AST ALT Alkaline Phosphatase Total Protein Albumin Globulin Albumin/Globulin Ratio 06/22/20 06/22/20 06/22/20 16:00 18:21 20:41 APTT 35.3 H PTT Ratio 1.3 Sodium Potassium Chloride Carbon Dioxide Anion Gap BUN Creatinine Est Cr Clr Drug Dosing Est GFR ( Amer) Est GFR (Non-Af Amer) BUN/Creatinine Ratio Glucose POC Glucose 263 H 206 H Calcium Total Bilirubin AST ALT Alkaline Phosphatase Total Protein Albumin Globulin Albumin/Globulin Ratio PG Care Time/CCT Total # of Minutes Spent Total Time Spent with Patient: Total time spent is greater than 50% in coordination of care (as documented) at patient's floor/unit and/or counseling patient: Coding Level of Care Code 74125 Subseq Hosp Care Lvl 3 Diagnoses Acute hypoxemic respiratory failure J96.01 Atrial fibrillation with RVR I48.91 Acute on chronic systolic ACC/AHA stage C congestive heart failure I50.23 Pneumonia due to COVID-19 virus U07.1; J12.89 Elevated troponin R77.8 Hyperglycemia due to type 2 diabetes mellitus E11.65 Gout M10.9 Ischemic cardiomyopathy I25.5 Hypertension I10 Dyslipidemia E78.5 Intractable hiccups R06.6 Mitral regurgitation I34.0 Hyponatremia E87.1 H/O splenectomy Z90.81 Constipation K59.00 Candidiasis of mouth and esophagus B37.81; B37.0 DVT prophylaxis Z29.9
[2020-06-23 02:32] LABS: Partial Thromboplastin Ratio 3.5
[2020-06-23 02:36] LABS: Partial Thromboplastin Time 97.6 Seconds (21.0-31.0)
[2020-06-23 07:21] LABS: Base Excess VBG 8.2 mEq/L; pH VBG 7.47 (7.36-7.41)
[2020-06-23 07:39] LABS: Partial Thromboplastin Ratio 1.7
[2020-06-23 07:41] LABS: Partial Thromboplastin Time 47.3 Seconds (21.0-31.0)
[2020-06-23 07:59] LABS: Calcium 9.1 mg/dl (8.5-10.1); Est GFR (African American) 77.2; Est GFR (Non-African American) 66.6; Potassium 4.7 mmol/L (3.5-5.1)
[2020-06-23] MEDS: cefTRIAXone SODIUM 2,000 MG in DEXTROSE 5% 50 ML IV SCH (08:07)
[2020-06-23] MEDS: PANTOprazole 40 MG TAB PO SCH (08:10)
[2020-06-23] MEDS: METOPROLOL SUCC 50MG EXT REL TAB PO SCH (08:10)
[2020-06-23] MEDS: dexAMETHasone 6 MG in SYRINGE 0 ML IV SCH (08:10)
[2020-06-23] MEDS: AMIODARONE 200 MG TAB PO SCH ×3 (08:10→16:33)
[2020-06-23] MEDS: CLOPIDOGREL BISULFATE 75 MG TAB PO SCH (08:11)
[2020-06-23] MEDS: ASPIRIN 81 MG ECTAB PO SCH (08:11)
[2020-06-23] MEDS: NYSTATIN SUSP 500,000 U/5 ML UDC PO SCH ×4 (08:12→19:59)
[2020-06-23] MEDS: SUCRALFATE 1 GM/10 ML UDC PO SCH ×4 (08:12→19:59)
[2020-06-23] MEDS ORDERED: BUMETANIDE 1 MG in SYRINGE 0 ML IV ONE (08:15)
--- NOTE | 2020-06-23 08:27 | XRay Report ---
XR chest 1V portable CLINICAL HISTORY: COVID-19, CHF; interval change COMPARISON STUDY: 06/20/2020 FINDINGS: Heart remains enlarged. There are bilateral pulmonary airspace opacities similar to the pre ceding study. There are no large pleural effusions. There is no pneumothorax.[ IMPRESSION: Bilateral pulmonary airspace opacities similar to the preceding study. ACT 112: Negative or not required by law. Electronically signed by: Jesus Llamas M.D. 06/23/2020 8:26 AM
[2020-06-23] MEDS: INSULIN HUMAN NPH SC SCH (08:30)
[2020-06-23] MEDS: INSULIN ASPART 100 UNITS/ML 3 ML PEN SC SCH ×4 (09:00→20:00)
[2020-06-23] MEDS: DOXYCYCLINE HYCLATE 100 MG in DEXTROSE 5% 100 ML IV SCH ×2 (09:34→20:04)
[2020-06-23 10:24] LABS: Partial Thromboplastin Ratio 1.6; Partial Thromboplastin Time 44.9 Seconds (21.0-31.0)
[2020-06-23] MEDS: DOCUSATE SODIUM 100 MG CAP PO SCH (11:16)
[2020-06-23] MEDS: POLYETHYLENE (MIRALAX) 17 GM PACK PO SCH (11:16)
[2020-06-23] MEDS: CALCIUM 600MG + VIT D 400 IU TAB PO SCH (11:16)
[2020-06-23] MEDS: ZINC SULFATE 220 MG CAPSULE PO SCH (11:17)
[2020-06-23] MEDS: SENNA 8.6 MG TAB PO SCH (11:17)
[2020-06-23] MEDS: INSULIN GLARGINE 100 UNIT/ML VIAL SC SCH (11:17)
[2020-06-23] MEDS: allopurinoL 300 MG TAB PO SCH (11:18)
--- NOTE | 2020-06-23 12:24 | Cardiology Progress Note ---
Date of Service June 23, 2020 Assessment & Plan (1) Paroxysmal atrial fibrillation with rapid ventricular response: Patient continues to maintain sinus rhythm on oral amiodarone. Plan: Continue amiodarone 3 times daily additional day On anticoagulation with IV heparin. Suspect patient will benefit from long-term anticoagulation with warfarin once hemodynamically stable (2) Pneumonia due to COVID-19 virus: Oxygen saturations being maintained while at rest but desats with activity and positioning now worse overnight requiring prone position higher O2 demands (3) Acute hypoxemic respiratory failure: (4) Ischemic cardiomyopathy: Volume status relatively stable pulmonary status declining Agree with resuming IV Bumex this morning and this evening Received additional potassium yesterday We will resume to oral nitrates as blood pressures appear to allow Consider restart of TIMMY inhibitor (5) Chronic systolic (congestive) heart failure: (6) Elevated troponin: Admission and Anticipated Discharge Date Admission Date: June 18, 2020 Subjective Patient was seen and examined, chart, medications and telemetry reviewed. Has had notable decline in pulmonary status overnight with increasing O2 demands. Chest x-ray with mixed infiltrates/edema oxygenation improved in the prone position. Telemetry without further atrial arrhythmias of significance. I/Os mildly negative Physical Exam Physical Exam: Patient examined in the prone position Eyes: PERRL, conjunctivae normal, anicteric sclerae PERRL Neck: trachea midline, no thyromegaly Cardiovascular: RRR, no murmur, no edema Vessels: no JVD Gastrointestinal (Abdomen): normal bowel sounds, soft, nontender, no hepatosplenomegaly Results & Data ([facility]) Vital Signs (Past 12 Hours) Vital Signs Temp Pulse Resp BP BP Pulse Ox 06/23/20 11:21 36.6 C 87 18 133/82 95 06/23/20 07:21 36.6 C 79 20 122/74 93 06/23/20 07:08 81 24 94 06/23/20 04:45 20 91 06/23/20 04:18 36.4 C L 79 20 119/74 94 Laboratory Results Laboratory Results - last 24 hr 06/22/20 06/22/20 06/22/20 15:36 16:00 18:21 APTT Cancelled 35.3 H PTT Ratio Cancelled 1.3 VBG pH VBG pCO2 VBG pO2 VBG HCO3 VBG O2 Saturation VBG Base Excess Barometric Pressure Sodium Potassium Chloride Carbon Dioxide Anion Gap BUN Creatinine Est Cr Clr Drug Dosing Est GFR ( Amer) Est GFR (Non-Af Amer) BUN/Creatinine Ratio Glucose POC Glucose 263 H Calcium AST ALT Procalcitonin 06/22/20 06/23/20 06/23/20 20:41 01:46 06:05 APTT 97.6 H* PTT Ratio 3.5 VBG pH VBG pCO2 VBG pO2 VBG HCO3 VBG O2 Saturation VBG Base Excess Barometric Pressure Sodium 137 Potassium 4.7 D Chloride 98 Carbon Dioxide 34 H Anion Gap 5.0 BUN 28 H Creatinine 1.07 Est Cr Clr Drug Dosing 65.0 Est GFR ( Amer) 77.2 Est GFR (Non-Af Amer) 66.6 BUN/Creatinine Ratio 26.0 H Glucose 139 H POC Glucose 206 H Calcium 9.1 AST 34 ALT 21 Procalcitonin 06/23/20 06/23/20 06/23/20 06:05 06:05 06:51 APTT 47.3 H* PTT Ratio 1.7 VBG pH 7.47 H VBG pCO2 47 VBG pO2 52 VBG HCO3 33 VBG O2 Saturation 88.0 VBG Base Excess 8.2 Barometric Pressure 733.6 Sodium Potassium Chloride Carbon Dioxide Anion Gap BUN Creatinine Est Cr Clr Drug Dosing Est GFR ( Amer) Est GFR (Non-Af Amer) BUN/Creatinine Ratio Glucose POC Glucose Calcium AST ALT Procalcitonin 0.14 06/23/20 06/23/20 06/23/20 07:18 09:48 11:19 APTT 44.9 H PTT Ratio 1.6 VBG pH VBG pCO2 VBG pO2 VBG HCO3 VBG O2 Saturation VBG Base Excess Barometric Pressure Sodium Potassium Chloride Carbon Dioxide Anion Gap BUN Creatinine Est Cr Clr Drug Dosing Est GFR ( Amer) Est GFR (Non-Af Amer) BUN/Creatinine Ratio Glucose POC Glucose 127 H 183 H Calcium AST ALT Procalcitonin
[2020-06-23] MEDS: HEPARIN SODIUM/DEXTROSE 25,000 UNITS/500 ML BAG IV SCH (16:19)
[2020-06-23] MEDS: BUMETANIDE 1 MG in SYRINGE 0 ML IV SCH (16:33)
[2020-06-23 17:27] LABS: Partial Thromboplastin Ratio 1.8
[2020-06-23 17:57] LABS: Partial Thromboplastin Time 50.3 Seconds (21.0-31.0)
[2020-06-23] MEDS: DULoxetine HCL 30 MG CAP PO SCH (20:04)
--- NOTE | 2020-06-23 23:04 | Hospitalist Progress Note ---
Date of Service June 23, 2020 Assessment & Plan (1) Acute hypoxemic respiratory failure: 2nd to acute on chronic systolic CHF and pneumonia due to COVID-19 virus infection. Suspect he is developing ARDS from COVID-19. HE IS MUCH WORSE TODAY. Resume IV bumex now. Prone as much as possible today. Cont steroids, abx, supportive care for COVID-19 pneumonia. See below. Keep sats 90-94% with HFNC. VBG reviewed - appears he has chronic CO2 retention as mild hypercarbia is compensated. Any additional worsening today - change to BIPAP. (2) Pneumonia due to COVID-19 virus: Awaiting convalescent plasma from [facility]; consent obtained. HE IS WORSE TODAY. Suspect CHF is still decompensated and also that he is developing ARDS from COVID pneumonia. Day #6 of 10 of dexamethasone 6 mg IV every morning. Consider increasing. Completed 5-day course of Remdesivir IV with stable ALT; AST has been high but only mild. Ventolin prn. Zinc sulfate daily x 10 days. Procalcitonin elevated; could have possible bacterial pneumonia in setting of COVID-19 infection. Also he is splenectomy state and therefore another risk factor for bacterial superinfection. Cont rocephin 2gm IV daily. Day #5. Cont doxy IV - Day #5 of atypical coverage. Cont pulmonary toilet - Flutter valve, Mucinex, Incentive spirometry. Keep sats 90-94%. Self-prone as much as possible this am and afternoon. Repeat his dimer in am. Cont heparin for a.fib/flutter, but easily could have PEs as well. Again if any worsening while on HFNC change to BIPAP. Remains full code. (3) Atrial fibrillation with RVR: New onset earlier this admission. Resolved with amiodarone infusion. Appreciate Dr Lawson's input. Continue amiodarone 200mg TID. Heparin infusion - standard dosing. Continue metoprolol succinate. TSH and K/mag wnl. Brief runs of a.fib/flutter over last 48 hours but spontaneously converted back to sinus. (4) Acute on chronic systolic ACC/AHA stage C congestive heart failure: Acute on chronic systolic CHF. CHF 2nd to ischemic cardiomyopathy. EF ~30% on echo done thru intermediate system earlier in 2019. Resume IV bumex this am. Cont metoprolol succinate; holding TIMMY but resume as BP allows. Serial BMP and magnesium levels. Appreciate cardiology assistance by Dr Lawson [facility] cardiology. (5) Elevated troponin: Likely Myocardial demand ischemia in setting of COVID-19 infection, resp failure, rapid a.fib, etc. (6) Hyperglycemia due to type 2 diabetes mellitus: NPH daily to cover steroids. Lantus. Novolog correction & carb ratio. A1c 10.4%. Pharmacy assistance appreciated. (7) Gout: Continue allopurinol prophylaxis No flares (8) Ischemic cardiomyopathy: EF 20-30% in the past. Cont BB. Holding TIMMY due to low-normal BPs. Cont asa/plavix. (9) Hypertension: See above re: intermittenly low-normal BPs (10) Dyslipidemia: Hold atorvastatin given high AST (11) Intractable hiccups: Ongoing despite PPI + carafate Rx for GERD. ??subacute stroke as cause of hiccups? consider imaging when more stable from pulmonary standpoint. thorazine 10mg po x 1 on intermittent basis has been helpful but need to use cautiously in light of prolonged QTc and amiodarone use OF NOTE - THERE ARE SEVERAL CASE REPORTS OF HICCUPS BEING A SYMPTOM/SIGN OF COVID-19 INFECTION PER THE LITERATURE. 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 now on significant HFNC - 40 liters, 100% FiO2. gave following orders at that time - bumex 1mg IV x 1 now; hold PO bumex; cxr; labs including VBG; place patient prone and have him prone all AM if possible I went to see the patient urgently. he admitted to feeling poorly this am. c/o dyspnea c/o cough he also had streaky hemoptysis this am - he showed me the hemoptysis fortunately no large, ace blood - just streaky he continues with hiccups - thorazine indeed helped yesterday he is doing his flutter & incentive tele overnight - no fib or flutter Review of Systems Constitutional: + fatigue and + weakness; no fever Respiratory: + cough, + dyspnea on exertion, + hemoptysis and + sputum production Cardiovascular: + dyspnea at rest and + orthopnea; no chest pain and no edema Gastrointestinal: no abdominal pain, no nausea and no vomiting Physical Exam Constitutional: + acute distress (Increased work of breathing), + ill appearing and + frail appearing; no altered mental status ongoing hiccups ENMT: external ear and nose normal, oropharynx normal Mouth: + oral mucosal abnormality (Thrush improved ); oral mucous membranes not dry Respiratory: + respiratory distress, + retractions, + cough and + tachypneic Auscultation: + rales (dry, fine, both bases); no wheezes Cardiovascular: Rate/Rhythm: regular rate and regular rhythm Heart Sounds: normal S1, normal S2 and + murmur (1/6 systolic LLSB) Vessels: + JVD, posterior tibial pulses present and dorsalis pedis pulses present Extremities: no edema Gastrointestinal (Abdomen): normal bowel sounds, soft, nontender, no hepatosplenomegaly Skin: no rashes Psychiatric: Orientation: alert and oriented x 3 Results & Data Results & Data ([facility]) Vital Signs (Past 12 Hours) Vital Signs Temp Pulse Pulse Resp BP Pulse Ox 06/23/20 22:59 82 20 98 06/23/20 20:24 78 26 H 93 06/23/20 20:00 36.8 C 82 18 136/82 92 06/23/20 17:20 90 06/23/20 16:30 36.5 C 82 16 122/82 97 06/23/20 16:27 90 06/23/20 15:45 76 24 94 06/23/20 11:21 36.6 C 87 18 133/82 95 Laboratory Results Laboratory Results - last 24 hr 06/23/20 06/23/20 06/23/20 01:46 06:05 06:05 APTT 97.6 H* PTT Ratio 3.5 VBG pH VBG pCO2 VBG pO2 VBG HCO3 VBG O2 Saturation VBG Base Excess Barometric Pressure Sodium 137 Potassium 4.7 D Chloride 98 Carbon Dioxide 34 H Anion Gap 5.0 BUN 28 H Creatinine 1.07 Est Cr Clr Drug Dosing 65.0 Est GFR ( Amer) 77.2 Est GFR (Non-Af Amer) 66.6 BUN/Creatinine Ratio 26.0 H Glucose 139 H POC Glucose Calcium 9.1 AST 34 ALT 21 Procalcitonin 0.14 06/23/20 06/23/20 06/23/20 06:05 06:51 07:18 APTT 47.3 H* PTT Ratio 1.7 VBG pH 7.47 H VBG pCO2 47 VBG pO2 52 VBG HCO3 33 VBG O2 Saturation 88.0 VBG Base Excess 8.2 Barometric Pressure 733.6 Sodium Potassium Chloride Carbon Dioxide Anion Gap BUN Creatinine Est Cr Clr Drug Dosing Est GFR ( Amer) Est GFR (Non-Af Amer) BUN/Creatinine Ratio Glucose POC Glucose 127 H Calcium AST ALT Procalcitonin 06/23/20 06/23/20 06/23/20 09:48 11:19 16:01 APTT 44.9 H PTT Ratio 1.6 VBG pH VBG pCO2 VBG pO2 VBG HCO3 VBG O2 Saturation VBG Base Excess Barometric Pressure Sodium Potassium Chloride Carbon Dioxide Anion Gap BUN Creatinine Est Cr Clr Drug Dosing Est GFR ( Amer) Est GFR (Non-Af Amer) BUN/Creatinine Ratio Glucose POC Glucose 183 H 262 H Calcium AST ALT Procalcitonin 06/23/20 06/23/20 06/23/20 16:47 19:58 20:00 APTT 50.3 H* PTT Ratio 1.8 VBG pH VBG pCO2 VBG pO2 VBG HCO3 VBG O2 Saturation VBG Base Excess Barometric Pressure Sodium Potassium Chloride Carbon Dioxide Anion Gap BUN Creatinine Est Cr Clr Drug Dosing Est GFR ( Amer) Est GFR (Non-Af Amer) BUN/Creatinine Ratio Glucose POC Glucose 318 H* 336 H* Calcium AST ALT Procalcitonin sputum cx negative cxr this am - b/l infiltrates similiar to previous cxr PG Care Time/CCT Total # of Minutes Spent Total Time Spent with Patient: Total time spent is greater than 50% in coordination of care (as documented) at patient's floor/unit and/or counseling patient: Coding Level of Care Code 61127 Subseq Hosp Care Lvl 3 Diagnoses Acute hypoxemic respiratory failure J96.01 Pneumonia due to COVID-19 virus U07.1; J12.89 Atrial fibrillation with RVR I48.91 Acute on chronic systolic ACC/AHA stage C congestive heart failure I50.23 Elevated troponin R77.8 Hyperglycemia due to type 2 diabetes mellitus E11.65 Gout M10.9 Ischemic cardiomyopathy I25.5 Hypertension I10 Dyslipidemia E78.5 Intractable hiccups R06.6 Mitral regurgitation I34.0 Hyponatremia E87.1 H/O splenectomy Z90.81 Constipation K59.00 Candidiasis of mouth and esophagus B37.81; B37.0 DVT prophylaxis Z29.9
[2020-06-24 06:23] LABS: Hematocrit (blood only) 44.6 % (42-52); Hemoglobin 14.6 g/dL (14.0-18.0); Mean Corpuscular Hemoglobin 27.1 pg (25-34); Mean Corpuscular Hgb Conc 32.7 g/dL (32-36); Mean Corpuscular Volume 82.9 fL (80-100); Mean Platelet Volume 10.4 fL (7.4-10.4); Platelet Count 301 K/uL (130-400); RDW Standard Deviation 44.8 fL (36.4-46.3); Red Blood Count 5.38 M/uL (4.7-6.1); White Blood Count 8.86 K/uL (4.8-10.8)
[2020-06-24 06:49] LABS: Partial Thromboplastin Ratio 1.6
[2020-06-24 06:51] LABS: Basophils # (auto) 0.05 K/uL (0-0.2); Basophils % (auto) 0.6 %; Immature Granulocytes # (auto) 0.04 K/uL (0.00-0.02); Immature Granulocytes % (auto) 0.5 %; Lymphocytes # (auto) 0.52 K/uL (1.2-3.4); Lymphocytes % (auto) 5.9 %; Monocytes # (auto) 0.34 K/uL (0.11-0.59); Monocytes % (auto) 3.8 %; Neutrophils # (auto) 7.91 K/uL (1.4-6.5); Neutrophils % (auto) 89.2 %
[2020-06-24 06:57] LABS: D Dimer 4160 ug/L FEU (0-500)
[2020-06-24 07:00] LABS: Calcium 8.9 mg/dl (8.5-10.1); Creatinine Clr Calc Pharmacy 56.8 ml/min; Est GFR (African American) 75.5; Est GFR (Non-African American) 65.1; Magnesium 2.2 mg/dl (1.8-2.4); Potassium 3.9 mmol/L (3.5-5.1)
[2020-06-24] MEDS: HEPARIN SODIUM/DEXTROSE 25,000 UNITS/500 ML BAG IV SCH (08:42)
[2020-06-24] MEDS: BUMETANIDE 1 MG in SYRINGE 0 ML IV SCH ×2 (08:46→18:24)
[2020-06-24] MEDS: SUCRALFATE 1 GM/10 ML UDC PO SCH ×4 (08:46→22:15)
[2020-06-24] MEDS: AMIODARONE 200 MG TAB PO SCH ×3 (08:46→18:22)
[2020-06-24] MEDS: DOCUSATE SODIUM 100 MG CAP PO SCH (08:47)
[2020-06-24] MEDS: CALCIUM 600MG + VIT D 400 IU TAB PO SCH (08:47)
[2020-06-24] MEDS: dexAMETHasone 6 MG in SYRINGE 0 ML IV SCH (08:48)
[2020-06-24] MEDS: ASPIRIN 81 MG ECTAB PO SCH (08:48)
[2020-06-24] MEDS: METOPROLOL SUCC 50MG EXT REL TAB PO SCH (08:48)
[2020-06-24] MEDS: ZINC SULFATE 220 MG CAPSULE PO SCH (08:49)
[2020-06-24] MEDS: CLOPIDOGREL BISULFATE 75 MG TAB PO SCH (08:49)
[2020-06-24] MEDS: SENNA 8.6 MG TAB PO SCH (08:50)
[2020-06-24] MEDS: ISOSORBIDE MONO EXTENDED REL 30 MG TABCR PO SCH (08:50)
[2020-06-24] MEDS: allopurinoL 300 MG TAB PO SCH (08:50)
[2020-06-24] MEDS: PANTOprazole 40 MG TAB PO SCH (08:50)
[2020-06-24] MEDS: NYSTATIN SUSP 500,000 U/5 ML UDC PO SCH ×4 (08:52→22:16)
[2020-06-24] MEDS: POLYETHYLENE (MIRALAX) 17 GM PACK PO SCH (08:52)
[2020-06-24] MEDS: INSULIN ASPART 100 UNITS/ML 3 ML PEN SC SCH ×4 (08:53→22:21)
[2020-06-24] MEDS: INSULIN GLARGINE 100 UNIT/ML VIAL SC SCH (08:54)
[2020-06-24] MEDS: DOXYCYCLINE HYCLATE 100 MG in DEXTROSE 5% 100 ML IV SCH ×2 (08:56→22:21)
[2020-06-24] MEDS: cefTRIAXone SODIUM 2,000 MG in DEXTROSE 5% 50 ML IV SCH (08:56)
[2020-06-24] MEDS ORDERED: INSULIN HUMAN NPH SC SCH (09:00)
--- NOTE | 2020-06-24 15:33 | Pharmacy Report ---
Pharmacy Glycemic Short Note 2 - Date of Service June 24, 2020 - Glycemic Short BSG Results (Last 24 hours): 06/23/20 06/23/20 06/23/20 16:01 19:58 20:00 Glucose POC Glucose 262 H 318 H* 336 H* 06/24/20 06/24/20 06/24/20 05:33 07:51 11:48 Glucose 127 H POC Glucose 182 H 209 H OUTPATIENT ANTIDIABETIC REGIMEN: * 70/30 insulin 25 units qam, 30 units qpm + ssi ASSESSMENT: 06/24 * Fasting BSG 127-182 this AM w/ 0 Lantus on board (held by RN yesterday) but did receive 25 units NPH in the AM * BSGs did climb quickly thru the day. Post-prandial hyperglycemia worsening as the day progressed. * Will increase NPH dose to combat steroid induced hyperglycemia from AM dexamethasone. Will also increase Novolog prandial dose dose * Given the downward trend in BSGs overnight as observed earlier this admission, continue low dose Lantus in the AM (no PM dosing) 06/22 * 68 units SQ insulin administered over last 24 hrs - patient consumed 2 of 3 meals yesterday (tends to skip breakfast per copper tapper of carb intake) * Dexamethasone 6mg IV daily continues * Mild hypoglycemia present on AM labs (FSB 68-69) with 15 units Lantus on board and after receiving NPH 25 units (~0.25units/kg) w/ AM dexamethasone * Unfortunately no Novolog, NPH or Lantus were administered this AM - although dexamethasone IV still given. Pre-lunch hyperglycemia developed as a result. Unclear what patient was given to correct hypoglycemia this AM. Plan to give 20units NPH at noon today to address hyperglycemia that is likely to ensue. BID Lantus will be changed to once daily in the AM at a reduced dose. * Novolog will continue at "severe" stress dosing 06/21 * 37 units SQ insulin administered over last 24 hrs * Most BSGs at goal over last 24 hrs w/ the exception of HS hyperglycemia * Dexamethasone IV, broad spectrum abx and heparin gtt continue at this time. PO intake appears poor. * Current insulin orders appear appropriate to continue for the next 24 hrs, however given this patient's poor PO intake we may need to scale back insulin (NPH + Lantus) doses in the near future PLAN FOR INPATIENT GLYCEMIC CONTROL: * Hold outpatient oral diabetes medications * Basal insulin * NPH 32 units (0.4units/kg) daily in the AM with dexamethasone IV * Lantus 5 units Q AM * Bolus insulin * NovoLog per scale ACHS or Q6hrs while NPO * Goal Range: Low 110 mg/dL - High 140 mg/dL * Correction Factor: 15 mg/dL/unit * Nutritional / Prandial insulin per carb ratio of 1 unit per 4.5 grams CHO consumed PLAN FOR DISCHARGE: * to be determined
--- NOTE | 2020-06-24 15:35 | Hospitalist Progress Note ---
Date of Service June 24, 2020 Assessment & Plan (1) Acute hypoxemic respiratory failure: due to acute on chronic systolic CHF and pneumonia due to COVID-19 virus infection. patient looks very comfortable today, RR in the teens, no accessory muscles still on 40L and 90%, laying on his side when he can, cannot lay prone Cont steroids, abx, supportive care for COVID-19 pneumonia. See below. Keep sats 90-94% with HFNC. if he would be worse would recommend BIPAP, but he appears very comfortable (2) Pneumonia due to COVID-19 virus: Awaiting convalescent plasma from [facility]; consent obtained. much more comfortable today compared to yesterday, although he is still requiring a lot of oxygen with 40L and 90% Day #7 of 10 of dexamethasone 6 mg IV every morning Completed 5-day course of Remdesivir IV with stable ALT; AST has been high but only mild. Ventolin prn. Zinc sulfate daily x 10 days. Procalcitonin elevated; could have possible bacterial pneumonia in setting of COVID-19 infection. Also he is splenectomy state and therefore another risk factor for bacterial superinfection. Cont rocephin 2gm IV daily. Day #6, will stop after tomorrow Cont doxy IV - Day #6, will stop after tomorrow Cont pulmonary toilet - Flutter valve, Mucinex, Incentive spirometry. Keep sats 90-94%. Self-prone as much as possible. change heparin drip to Lovenox BID, will eventually need Coumadin Again if any worsening while on HFNC change to BIPAP. Remains full code. (3) Atrial fibrillation with RVR: New onset earlier this admission. Resolved with amiodarone infusion. Appreciate Dr Lawson's input. Continue amiodarone 200mg TID this week, he will determine when to taper to BID Heparin infusion - change to Lovenox 1mg/kg BID starting this evening Continue metoprolol succinate. TSH and K/mag wnl. rate and rhythm is stable (4) Acute on chronic systolic ACC/AHA stage C congestive heart failure: Acute on chronic systolic CHF. CHF 2nd to ischemic cardiomyopathy. EF ~30% on echo done thru group home system earlier in 2019. bumex 1mg IV BID right now, Cr is stable, follow up tomorrow Cont metoprolol succinate; holding TIMMY but resume as BP allows. Serial BMP and magnesium levels. Appreciate cardiology assistance by [facility]. (5) Elevated troponin: Likely Myocardial demand ischemia in setting of COVID-19 infection, resp failure, rapid a.fib, etc. (6) Hyperglycemia due to type 2 diabetes mellitus: NPH daily to cover steroids. Lantus. Novolog correction & carb ratio. A1c 10.4%. Pharmacy assistance appreciated. hyperglycemia last night, increase NPH and adjust novolog (7) Gout: Continue allopurinol prophylaxis No flares (8) Ischemic cardiomyopathy: EF 20-30% in the past. Cont BB. Holding TIMMY due to low-normal BPs. Cont asa/plavix. (9) Hypertension: See above re: intermittenly low-normal BPs (10) Dyslipidemia: Hold atorvastatin given high AST (11) Intractable hiccups: Ongoing despite PPI + carafate Rx for GERD. ??subacute stroke as cause of hiccups? consider imaging when more stable from pulmonary standpoint. thorazine 10mg po x 1 on intermittent basis has been helpful but need to use cautiously in light of prolonged QTc and amiodarone use OF NOTE - THERE ARE SEVERAL CASE REPORTS OF HICCUPS BEING A SYMPTOM/SIGN OF COVID-19 INFECTION PER THE LITERATURE. (12) Mitral regurgitation: as seen on prior echos (13) Hyponatremia: improved w/ diuresis to 137 bmp am (14) H/O splenectomy: noted (15) Constipation: miralax w senna improved (16) Candidiasis of mouth and esophagus: nystatin minoo 5cc qid improved (17) DVT prophylaxis: heparin infusion - standard dosing prognosis guarded given his numerous medical issues and worsening O2 requirements and probable development of ARDS from COVID Admission and Anticipated Discharge Date Admission Date: June 18, 2020 Subjective reviewed chart discussed with Dr. Lawson, recommends to continue the Bumex BID and the Amiodarone TID this week, he will taper reviewed labs, CBC normal, D dimer 4160, Na 133, Cr 1.09 and BUN 34 glucose really high last night, > 300, NPH is 32 units with lantus 5 and Novolog, pharmacy is making adjustments patient says he feels better than yesterday, eating okay but not much, says he is not much of a big eater normally RR in the teens, no distress, on 40L and 90% he laid on his side most of the day, now on his back he is motivated to beat this pneumonia, told him to be patient, gonna be another week in the hospital at least Review of Systems Review of Systems: All systems reviewed & are unremarkable except as noted in Subjective Constitutional: + weakness; no fever, no chills, no sweats and no fatigue Respiratory: + cough, + dyspnea and + dyspnea on exertion; no sputum production Cardiovascular: no chest pain, no palpitations and no edema Gastrointestinal: no abdominal pain, no nausea, no vomiting, no constipation and no diarrhea/loose stools Musculoskeletal: no back pain and no muscle weakness Physical Exam Constitutional: well developed, well nourished and comfortable; no acute distress Neck: trachea midline, no thyromegaly Respiratory: normal respiratory effort; no respiratory distress, no labored breathing and no cough Auscultation: lungs clear to auscultation bilaterally Cardiovascular: RRR, no murmur, no edema Gastrointestinal (Abdomen): normal bowel sounds, soft, nontender, no hepatosplenomegaly Musculoskeletal: no cyanosis or clubbing, extremities motor strength 5/5 Skin: no rashes, warm and dry Neurologic: patellar DTR's 2+ bilat, sensation intact and PERRL, EOMI, accommodation nl, no face palsy, no dysarthria Psychiatric: A+Ox3, euthymic affect Lymphatic: no cervical or axillary lymphadenopathy Results & Data Results & Data ([facility]) Vital Signs (Past 12 Hours) Vital Signs Temp Pulse Pulse Resp BP BP Pulse Ox 06/24/20 15:19 37.3 C 95 H 22 130/78 92 06/24/20 11:00 37.4 C 95 H 19 114/76 91 06/24/20 10:48 90 20 86 L 06/24/20 10:20 96 H 86 L 06/24/20 10:11 97 H 90 06/24/20 09:50 92 H 94 06/24/20 09:40 91 H 95 06/24/20 09:30 95 H 88 L 06/24/20 09:20 93 H 93 06/24/20 09:10 89 91 06/24/20 09:00 85 92 06/24/20 08:50 83 93 06/24/20 08:40 86 87 L 06/24/20 08:30 91 H 147/84 H 86 L 01/07/21 08:20 92 H 86 L 06/24/20 08:10 84 91 06/24/20 08:07 90 06/24/20 08:00 85 20 89 L 06/24/20 07:29 85 22 94 06/24/20 07:00 37.0 C 21 147/88 H 91 06/24/20 04:00 36.8 C 77 20 124/69 95 Laboratory Results Laboratory Results - last 24 hr 06/23/20 06/23/20 06/23/20 16:01 16:47 19:58 WBC RBC Hgb Hct MCV MCH MCHC RDW Std Deviation RDW Coeff of [place] Plt Count MPV Immature Gran % (Auto) Neut % (Auto) Lymph % (Auto) [place] % (Auto) Eos % (Auto) Baso % (Auto) Neut # (Auto) Lymph # (Auto) [place] # (Auto) Eos # (Auto) Baso # (Auto) Immature Gran # (Auto) APTT 50.3 H* PTT Ratio 1.8 D-Dimer Sodium Potassium Chloride Carbon Dioxide Anion Gap BUN Creatinine Est Cr Clr Drug Dosing Est GFR ( Amer) Est GFR (Non-Af Amer) BUN/Creatinine Ratio Glucose POC Glucose 262 H 318 H* Calcium Magnesium 06/23/20 06/24/20 06/24/20 20:00 05:33 05:33 WBC 8.86 RBC 5.38 Hgb 14.6 Hct 44.6 MCV 82.9 MCH 27.1 MCHC 32.7 RDW Std Deviation 44.8 RDW Coeff of [place] 15.0 H Plt Count 301 MPV 10.4 Immature Gran % (Auto) 0.5 Neut % (Auto) 89.2 Lymph % (Auto) 5.9 [place] % (Auto) 3.8 Eos % (Auto) 0.0 Baso % (Auto) 0.6 Neut # (Auto) 7.91 H Lymph # (Auto) 0.52 L [place] # (Auto) 0.34 Eos # (Auto) 0.00 Baso # (Auto) 0.05 Immature Gran # (Auto) 0.04 H APTT PTT Ratio D-Dimer Cancelled Sodium Potassium Chloride Carbon Dioxide Anion Gap BUN Creatinine Est Cr Clr Drug Dosing Est GFR ( Amer) Est GFR (Non-Af Amer) BUN/Creatinine Ratio Glucose POC Glucose 336 H* Calcium Magnesium 06/24/20 06/24/20 06/24/20 05:33 05:33 07:51 WBC RBC Hgb Hct MCV MCH MCHC RDW Std Deviation RDW Coeff of [place] Plt Count MPV Immature Gran % (Auto) Neut % (Auto) Lymph % (Auto) [place] % (Auto) Eos % (Auto) Baso % (Auto) Neut # (Auto) Lymph # (Auto) [place] # (Auto) Eos # (Auto) Baso # (Auto) Immature Gran # (Auto) APTT 46.0 H* PTT Ratio 1.6 D-Dimer 4160 H* Sodium 133 L Potassium 3.9 D Chloride 94 L Carbon Dioxide 34 H Anion Gap 5.0 BUN 34 H Creatinine 1.09 Est Cr Clr Drug Dosing 56.8 Est GFR ( Amer) 75.5 Est GFR (Non-Af Amer) 65.1 BUN/Creatinine Ratio 31.0 H Glucose 127 H POC Glucose 182 H Calcium 8.9 Magnesium 2.2 06/24/20 11:48 WBC RBC Hgb Hct MCV MCH MCHC RDW Std Deviation RDW Coeff of [place] Plt Count MPV Immature Gran % (Auto) Neut % (Auto) Lymph % (Auto) [place] % (Auto) Eos % (Auto) Baso % (Auto) Neut # (Auto) Lymph # (Auto) [place] # (Auto) Eos # (Auto) Baso # (Auto) Immature Gran # (Auto) APTT PTT Ratio D-Dimer Sodium Potassium Chloride Carbon Dioxide Anion Gap BUN Creatinine Est Cr Clr Drug Dosing Est GFR ( Amer) Est GFR (Non-Af Amer) BUN/Creatinine Ratio Glucose POC Glucose 209 H Calcium Magnesium Medications Administered Current Inpatient Medications Acetaminophen (Acetaminophen 325 Mg Tab) 650 mg PO Q4H PRN PRN Reason: Pain or Fever Stop: 07/18/20 14:30 Last Admin: 06/19/20 07:47 Dose: 650 mg Documented by: Albuterol (Albut/Ipratrop 3mg/0.5mg Neb 3 Ml Vial) 3 ml NEB Q4 PRN PRN Reason: Shortness Of Breath Or Wheezing Stop: 07/19/20 08:14 Allopurinol (Allopurinol 300 Mg Tab) 150 mg PO QAM [facility] Stop: 07/19/20 08:59 Last Admin: 06/24/20 08:50 Dose: 150 mg Documented by: Amiodarone HCl (Amiodarone 200 Mg Tab) 200 mg PO TIDM [facility] Stop: 07/20/20 21:00 Last Admin: 06/24/20 12:58 Dose: 200 mg Documented by: Aspirin (Aspirin 81 Mg Ectab) 81 mg PO QAM [facility] Stop: 07/19/20 08:59 Last Admin: 06/24/20 08:48 Dose: 81 mg Documented by: Atorvastatin Calcium (Atorvastatin 10 Mg Tab) 10 mg PO HS [facility] Stop: 07/18/20 20:59 Last Admin: 06/18/20 20:36 Dose: 10 mg Documented by: Baclofen (Baclofen 10 Mg Tab) 10 mg PO BID [facility] Stop: 07/18/20 20:59 Last Admin: 06/19/20 10:49 Dose: Not Given Documented by: Bumetanide (Bumetanide 1 Mg Tab) 1 mg PO QAM [facility] Stop: 07/21/20 11:59 Last Admin: 06/22/20 08:56 Dose: 1 mg Documented by: Calcium Carbonate (Calcium Carbonate 500 Mg Chewable Tab) 400 mg PO TID PRN PRN Reason: Unknown Stop: 07/18/20 14:30 Clopidogrel Bisulfate (Clopidogrel Bisulfate 75 Mg Tab) 75 mg PO DAILY [facility] Stop: 07/19/20 08:59 Last Admin: 06/24/20 08:49 Dose: 75 mg Documented by: Dextrose (Dextrose 50% 50 Ml Syringe) 25 - 50 ml IV UD PRN; Protocol PRN Reason: Hypoglycemia Protocol Stop: 07/18/20 14:30 Docusate Sodium (Docusate Sodium 100 Mg Cap) 200 mg PO DAILY [facility] Stop: 07/19/20 08:59 Last Admin: 06/24/20 08:47 Dose: 200 mg Documented by: Duloxetine HCl (Duloxetine Hcl 30 Mg Cap) 30 mg PO HS [facility] Stop: 07/18/20 20:59 Last Admin: 06/23/20 20:04 Dose: 30 mg Documented by: Enoxaparin Sodium (Enoxaparin 1 Mg/Kg) 1 mg SQ Q12H [facility] Stop: 07/24/20 17:59 Glucagon (Glucagon For Inj 1 Mg Vial) 1 mg SQ UD PRN; Protocol PRN Reason: Hypoglycemia Protocol Stop: 07/18/20 14:30 Glucose (Glucose 10 Tabs/Tube) 4 - 8 tabs PO UD PRN; Protocol PRN Reason: Hypoglycemia Protocol Stop: 07/18/20 14:30 Glucose (Glucose 40% Gel 15 Gm Tube) 15 - 30 gm PO UD PRN; Protocol PRN Reason: Hypoglycemia Protocol Stop: 07/18/20 14:30 Dexamethasone 6 mg/ Syringe 1.5 mls @ 1 mls/min IV QAM [facility] Stop: 07/19/20 08:59 Last Admin: 06/24/20 08:48 Dose: 1 mls/min Documented by: Ceftriaxone Sodium 2,000 mg/ (Dextrose) 70 mls @ 100 mls/hr IV DAILY [facility]; Protocol Stop: 06/25/20 15:59 Last Infusion: 06/24/20 09:49 Dose: Infused Documented by: Bumetanide 1 mg/ Syringe 4 mls @ 4 mls/min IV BID@0900,1700 [facility] Stop: 07/19/20 08:59 Last Admin: 06/24/20 08:46 Dose: 4 mls/min Documented by: Doxycycline Hyclate 100 mg/ (Dextrose) 110 mls @ 50 mls/hr IV Q12H [facility] Stop: 06/27/20 08:59 Last Infusion: 06/24/20 10:03 Dose: 0 mls/hr Documented by: Insulin Aspart (Insulin Aspart 100 Units/Ml 3 Ml Pen) 0 units SC [facility]; Protocol Stop: 07/18/20 16:29 Last Admin: 06/24/20 12:53 Dose: 10 units Documented by: Insulin Glargine (Insulin Glargine 100 Unit/Ml Vial) 5 units SC [facility] Stop: 07/23/20 08:59 Last Admin: 06/24/20 08:54 Dose: 5 units Documented by: Insulin Human NPH (Insulin Human Nph) 32 units SC DAILY [facility] Stop: 07/24/20 08:59 Last Admin: 06/24/20 08:52 Dose: 32 units Documented by: Isosorbide Mononitrate (Isosorbide [place] Extended Rel 30 Mg Tabcr) 30 mg PO DAILY [facility] Stop: 07/19/20 08:59 Last Admin: 06/24/20 08:50 Dose: 30 mg Documented by: Lisinopril (Lisinopril 5 Mg Tab) 5 mg PO DAILY [facility] Stop: 07/19/20 08:59 Last Admin: 06/19/20 10:50 Dose: Not Given Documented by: Metoprolol Succinate (Metoprolol Succ 50mg Ext Rel Tab) 50 mg PO DAILY [facility] Stop: 07/19/20 08:59 Last Admin: 06/24/20 08:48 Dose: 50 mg Documented by: Metoprolol Tartrate (Metoprolol Tartrate 1 Mg/Ml Vial) 5 mg IV Q1H PRN PRN Reason: Tachycardia Stop: 07/19/20 11:35 Last Admin: 06/19/20 13:20 Dose: 5 mg Documented by: Miscellaneous (Carbohydrates For Hypoglycemia ) 15 - 30 gm PO UD PRN PRN Reason: Hypoglycemia Protocol Stop: 07/18/20 14:30 Miscellaneous Information (Pharmacy Glycemic Mgmt Consult) 1 ea N/A UD PRN PRN Reason: Consult Stop: 07/18/20 17:33 Multivitamins/Minerals (Calcium 600mg + Vit D 400 Iu Tab) 1 tab PO DAILY [facility] Stop: 07/19/20 08:59 Last Admin: 06/24/20 08:47 Dose: 1 tab Documented by: Nitroglycerin (Nitroglycerin Sl 0.4 Mg/Tab Tab) 0.4 mg SL UD PRN PRN Reason: Chest Pain Stop: 07/18/20 14:30 Last Admin: 06/19/20 11:44 Dose: 0.4 mg Documented by: Nystatin (Nystatin Susp 500,000 U/5 Ml Udc) 5 ml PO QID [facility] Stop: 06/30/20 16:59 Last Admin: 06/24/20 13:08 Dose: 5 ml Documented by: Pantoprazole Sodium (Pantoprazole 40 Mg Tab) 40 mg PO DAILY [facility] Stop: 07/19/20 08:59 Last Admin: 06/24/20 08:50 Dose: 40 mg Documented by: Polyethylene Glycol (Polyethylene (Miralax) 17 Gm Pack) 17 gm PO DAILY [facility] Stop: 07/20/20 16:59 Last Admin: 06/24/20 08:52 Dose: 17 gm Documented by: Sennosides (Senna 8.6 Mg Tab) 17.2 mg PO QAM [facility] Stop: 07/20/20 16:59 Last Admin: 06/24/20 08:50 Dose: 17.2 mg Documented by: Sucralfate (Sucralfate 1 Gm/10 Ml Udc) 1 gm PO QID [facility] Stop: 07/19/20 12:59 Last Admin: 06/24/20 13:08 Dose: 1 gm Documented by: Zinc Sulfate (Zinc Sulfate 220 Mg Capsule) 220 mg PO QAM [facility] Stop: 07/18/20 14:29 Last Admin: 06/24/20 08:49 Dose: 220 mg Documented by: PG Care Time/CCT Total # of Minutes Spent Total Time Spent with Patient: Total time spent is greater than 50% in coordination of care (as documented) at patient's floor/unit and/or counseling patient: Coding Level of Care Code 04741 Subseq Hosp Care Lvl 3 Diagnoses Acute hypoxemic respiratory failure J96.01 Pneumonia due to COVID-19 virus U07.1; J12.89 Atrial fibrillation with RVR I48.91 Acute on chronic systolic ACC/AHA stage C congestive heart failure I50.23 Elevated troponin R77.8 Hyperglycemia due to type 2 diabetes mellitus E11.65 Gout M10.9 Ischemic cardiomyopathy I25.5 Hypertension I10 Dyslipidemia E78.5 Intractable hiccups R06.6 Mitral regurgitation I34.0 Hyponatremia E87.1 H/O splenectomy Z90.81 Constipation K59.00 Candidiasis of mouth and esophagus B37.81; B37.0 DVT prophylaxis Z29.9
[2020-06-24] MEDS: ENOXAPARIN 80 MG/0.8 ML SYR SQ SCH (19:25)
[2020-06-24] MEDS: DULoxetine HCL 30 MG CAP PO SCH (22:16)
[2020-06-25] MEDS: ENOXAPARIN 80 MG/0.8 ML SYR SQ SCH ×2 (06:46→17:28)
[2020-06-25 08:26] LABS: Hematocrit (blood only) 40.5 % (42-52); Hemoglobin 13.3 g/dL (14.0-18.0); Mean Corpuscular Hgb Conc 32.8 g/dL (32-36); Mean Corpuscular Volume 82.2 fL (80-100); Mean Platelet Volume 10.1 fL (7.4-10.4); Platelet Count 332 K/uL (130-400); RDW Coefficient of Variation 15.2 % (11.5-14.5); RDW Standard Deviation 45.5 fL (36.4-46.3); Red Blood Count 4.93 M/uL (4.7-6.1)
[2020-06-25] MEDS: cefTRIAXone SODIUM 2,000 MG in DEXTROSE 5% 50 ML IV SCH (08:47)
[2020-06-25] MEDS: BUMETANIDE 1 MG in SYRINGE 0 ML IV SCH ×2 (08:47→17:25)
[2020-06-25] MEDS: ISOSORBIDE MONO EXTENDED REL 30 MG TABCR PO SCH (08:48)
[2020-06-25] MEDS: dexAMETHasone 6 MG in SYRINGE 0 ML IV SCH (08:48)
[2020-06-25] MEDS: ZINC SULFATE 220 MG CAPSULE PO SCH (08:48)
[2020-06-25] MEDS: CALCIUM 600MG + VIT D 400 IU TAB PO SCH (08:48)
[2020-06-25] MEDS: allopurinoL 300 MG TAB PO SCH (08:48)
[2020-06-25] MEDS: METOPROLOL SUCC 50MG EXT REL TAB PO SCH (08:49)
[2020-06-25] MEDS: CLOPIDOGREL BISULFATE 75 MG TAB PO SCH (08:49)
[2020-06-25] MEDS: NYSTATIN SUSP 500,000 U/5 ML UDC PO SCH ×4 (08:49→19:06)
[2020-06-25] MEDS: SUCRALFATE 1 GM/10 ML UDC PO SCH ×4 (08:49→19:06)
[2020-06-25] MEDS: AMIODARONE 200 MG TAB PO SCH ×3 (08:49→17:30)
[2020-06-25] MEDS: ASPIRIN 81 MG ECTAB PO SCH (08:49)
[2020-06-25] MEDS: DOCUSATE SODIUM 100 MG CAP PO SCH (08:49)
[2020-06-25] MEDS: PANTOprazole 40 MG TAB PO SCH (08:49)
[2020-06-25] MEDS: SENNA 8.6 MG TAB PO SCH (08:50)
[2020-06-25] MEDS: INSULIN GLARGINE 100 UNIT/ML VIAL SC SCH (08:54)
[2020-06-25] MEDS: POLYETHYLENE (MIRALAX) 17 GM PACK PO SCH (08:55)
[2020-06-25] MEDS: INSULIN ASPART 100 UNITS/ML 3 ML PEN SC SCH ×4 (08:56→20:29)
[2020-06-25] MEDS ORDERED: INSULIN HUMAN NPH SC SCH (09:00)
[2020-06-25] MEDS: DOXYCYCLINE HYCLATE 100 MG in DEXTROSE 5% 100 ML IV SCH ×2 (09:01→19:21)
--- NOTE | 2020-06-25 09:01 | Hospitalist Progress Note ---
Date of Service June 25, 2020 Assessment & Plan (1) Acute hypoxemic respiratory failure: due to acute on chronic systolic CHF and pneumonia due to COVID-19 virus infection. patient breathing a little faster this morning, RR 30, not labored or in distress still on 40L and 100%, laying on his side when he can, cannot lay prone Cont steroids, abx, supportive care for COVID-19 pneumonia. See below. Keep sats 90% discussed that he would require BIPAP if saturations drop further, he unde rstands (2) Pneumonia due to COVID-19 virus: requiring more oxygen at 40L and 100% Day #8 of 10 of dexamethasone 6 mg IV every morning Completed 5-day course of Remdesivir IV with stable ALT; AST has been high but only mild. Ventolin prn. Zinc sulfate daily x 10 days. Procalcitonin elevated; could have possible bacterial pneumonia in setting of COVID-19 infection. Also he is splenectomy state and therefore another risk factor for bacterial superinfection. 7 days of Rocephin and Doxycycline IV completed on 06/25/20 Cont pulmonary toilet - Flutter valve, Mucinex, Incentive spirometry. Keep sats 90-94%. Self-prone as much as possible but he is only able to lay in his side change heparin drip to Lovenox BID, will eventually need Coumadin Again if any worsening while on HFNC change to BIPAP. Remains full code. (3) Atrial fibrillation with RVR: New onset earlier this admission. Resolved with amiodarone infusion. Appreciate Dr Lawson's input. Continue amiodarone 200mg TID this week, he will determine when to taper to BID Heparin infusion - change to Lovenox 1mg/kg BID to limit fluid intake Continue metoprolol succinate. TSH and K/mag wnl. rate and rhythm is stable (4) Acute on chronic systolic ACC/AHA stage C congestive heart failure: Acute on chronic systolic CHF. CHF 2nd to ischemic cardiomyopathy. EF ~30% on echo done thru custodial system earlier in 2019. bumex 1mg IV BID right now, Cr is stable at 1.08, K is 3.7 Cont metoprolol succinate; holding TIMMY but resume as BP allows. Serial BMP and magnesium levels. Appreciate cardiology assistance by Dr Lawson, [facility] cardiology. (5) Elevated troponin: Likely Myocardial demand ischemia in setting of COVID-19 infection, resp failure, rapid a.fib, etc. (6) Hyperglycemia due to type 2 diabetes mellitus: NPH daily to cover steroids. Lantus. Novolog correction & carb ratio. A1c 10.4%. Pharmacy assistance appreciated. sugars better the past 24 hours with adjusting Novolog and NPH (7) Gout: Continue allopurinol prophylaxis No flares (8) Ischemic cardiomyopathy: EF 20-30% in the past. Cont BB. Holding TIMMY due to low-normal BPs. Cont asa/plavix. (9) Hypertension: See above re: intermittenly low-normal BPs (10) Dyslipidemia: Hold atorvastatin given high AST (11) Intractable hiccups: Ongoing despite PPI + carafate Rx for GERD. ??subacute stroke as cause of hiccups? consider imaging when more stable from pulmonary standpoint. thorazine 10mg po x 1 on intermittent basis has been helpful but need to use cautiously in light of prolonged QTc and amiodarone use OF NOTE - THERE ARE SEVERAL CASE REPORTS OF HICCUPS BEING A SYMPTOM/SIGN OF COVID-19 INFECTION PER THE LITERATURE. (12) Mitral regurgitation: as seen on prior echos (13) Hyponatremia: improved w/ diuresis to 134 bmp am (14) H/O splenectomy: noted (15) Constipation: miralax w senna improved (16) Candidiasis of mouth and esophagus: nystatin minoo 5cc qid improved (17) DVT prophylaxis: heparin infusion - standard dosing prognosis guarded given his numerous medical issues and worsening O2 requirements and probable development of ARDS from COVID Admission and Anticipated Discharge Date Admission Date: June 18, 2020 Subjective patient is eating okay, finished breakfast, no nausea, no diarrhea his breathing is the same as yesterday, his remains on 40L and 100% FiO2 WBC normal, Hb 13 Cr is 1.08, K 3.7, glucose 220 this morning, was better last night in low 200's after adjustments to insulin regimen encouraged him to lay on his side or prone if he can discussed that the next step would be BIPAP if his saturations decline on the high flow, he understands he is making adequate urine with the Bumex and Cr is stable Review of Systems Review of Systems: All systems reviewed & are unremarkable except as noted in Subjective Physical Exam Constitutional: well developed, well nourished and comfortable; no acute distress Neck: trachea midline, no thyromegaly Respiratory: normal respiratory effort and + tachypneic; no respiratory distress, no labored breathing and no cough Auscultation: lungs clear to auscultation bilaterally Cardiovascular: RRR, no murmur, no edema Gastrointestinal (Abdomen): normal bowel sounds, soft, nontender, no hepatosplenomegaly Musculoskeletal: no cyanosis or clubbing, extremities motor strength 5/5 Skin: no rashes, warm and dry Neurologic: patellar DTR's 2+ bilat, sensation intact and PERRL, EOMI, accommodation nl, no face palsy, no dysarthria Psychiatric: A+Ox3, euthymic affect Lymphatic: no cervical or axillary lymphadenopathy Results & Data Results & Data ([facility]) Vital Signs (Past 12 Hours) Vital Signs Temp Pulse Pulse Resp BP BP Pulse Ox 06/25/20 07:44 80 30 H 92 06/25/20 07:30 36.4 C L 81 22 130/84 85 L 06/25/20 05:04 80 24 89 L 06/25/20 03:41 36.5 C 84 24 89 L 06/25/20 01:39 82 28 H 135/77 89 L 06/24/20 23:51 87 06/24/20 23:11 36.5 C 87 20 125/88 92 06/24/20 22:55 86 26 H 93 Laboratory Results Laboratory Results - last 24 hr 06/24/20 06/24/20 06/24/20 11:48 16:19 22:18 WBC RBC Hgb Hct MCV MCH MCHC RDW Std Deviation RDW Coeff of Maria Guadalupe Plt Count MPV APTT PTT Ratio Sodium Potassium Chloride Carbon Dioxide Anion Gap BUN Creatinine Est Cr Clr Drug Dosing Est GFR ( Amer) Est GFR (Non-Af Amer) BUN/Creatinine Ratio Glucose POC Glucose 209 H 247 H 220 H Calcium 06/25/20 06/25/20 06/25/20 06:10 07:59 07:59 WBC 9.00 RBC 4.93 Hgb 13.3 L Hct 40.5 L MCV 82.2 MCH 27.0 MCHC 32.8 RDW Std Deviation 45.5 RDW Coeff of Maria Guadalupe 15.2 H Plt Count 332 MPV 10.1 APTT Cancelled PTT Ratio Cancelled Sodium 134 L Potassium 3.7 Chloride 93 L Carbon Dioxide 34 H Anion Gap 7.0 BUN 33 H Creatinine 1.08 Est Cr Clr Drug Dosing 57.3 Est GFR ( Amer) 76.3 Est GFR (Non-Af Amer) 65.9 BUN/Creatinine Ratio 30.9 H Glucose 120 H POC Glucose Calcium 9.5 Medications Administered Current Inpatient Medications Acetaminophen (Acetaminophen 325 Mg Tab) 650 mg PO Q4H PRN PRN Reason: Pain or Fever Stop: 07/18/20 14:30 Last Admin: 06/19/20 07:47 Dose: 650 mg Documented by: Albuterol (Albut/Ipratrop 3mg/0.5mg Neb 3 Ml Vial) 3 ml NEB Q4 PRN PRN Reason: Shortness Of Breath Or Wheezing Stop: 07/19/20 08:14 Allopurinol ([facility]ol 300 Mg Tab) [facility] [place]: 07/19/20 08:59 Last Admin: 06/24/20 08:50 Dose: 150 mg Documented by: Amiodarone HCl (Amiodarone 200 Mg Tab) 200 mg PO TIDM [facility] Stop: 07/20/20 21:00 Last Admin: 06/24/20 18:22 Dose: 200 mg Documented by: Aspirin (Aspirin 81 Mg Ectab) 81 mg PO QAM [facility] Stop: 07/19/20 08:59 Last Admin: 06/24/20 08:48 Dose: 81 mg Documented by: Atorvastatin Calcium (Atorvastatin 10 Mg Tab) 10 mg PO HS [facility] Stop: 07/18/20 20:59 Last Admin: 06/18/20 20:36 Dose: 10 mg Documented by: Baclofen (Baclofen 10 Mg Tab) 10 mg PO BID [facility] Stop: 07/18/20 20:59 Last Admin: 06/19/20 10:49 Dose: Not Given Documented by: Bumetanide (Bumetanide 1 Mg Tab) 1 mg PO QAM [facility] Stop: 07/21/20 11:59 Last Admin: 06/22/20 08:56 Dose: 1 mg Documented by: Calcium Carbonate (Calcium Carbonate 500 Mg Chewable Tab) 400 mg PO TID PRN PRN Reason: Unknown Stop: 07/18/20 14:30 Clopidogrel Bisulfate (Clopidogrel Bisulfate 75 Mg Tab) 75 mg PO DAILY [facility] Stop: 07/19/20 08:59 Last Admin: 06/24/20 08:49 Dose: 75 mg Documented by: Dextrose (Dextrose 50% 50 Ml Syringe) 25 - 50 ml IV UD PRN; Protocol PRN Reason: Hypoglycemia Protocol Stop: 07/18/20 14:30 Docusate Sodium (Docusate Sodium 100 Mg Cap) 200 mg PO DAILY [facility] Stop: 07/19/20 08:59 Last Admin: 06/24/20 08:47 Dose: 200 mg Documented by: Duloxetine HCl (Duloxetine Hcl 30 Mg Cap) 30 mg PO HS [facility] Stop: 07/18/20 20:59 Last Admin: 06/24/20 22:16 Dose: Not Given Documented by: Enoxaparin Sodium (Enoxaparin 80 Mg/0.8 Ml Syr) 80 mg SQ Q12H [facility] Stop: 07/24/20 17:59 Last Admin: 06/25/20 06:46 Dose: 80 mg Documented by: Glucagon (Glucagon For Inj 1 Mg Vial) 1 mg SQ UD PRN; Protocol PRN Reason: Hypoglycemia Protocol Stop: 07/18/20 14:30 Glucose (Glucose 10 Tabs/Tube) 4 - 8 tabs PO UD PRN; Protocol PRN Reason: Hypoglycemia Protocol Stop: 07/18/20 14:30 Glucose (Glucose 40% Gel 15 Gm Tube) 15 - 30 gm PO UD PRN; Protocol PRN Reason: Hypoglycemia Protocol Stop: 07/18/20 14:30 Dexamethasone 6 mg/ Syringe 1.5 mls @ 1 mls/min IV QAM [facility] Stop: 07/19/20 08:59 Last Admin: 06/24/20 08:48 Dose: 1 mls/min Documented by: Ceftriaxone Sodium 2,000 mg/ (Dextrose) 70 mls @ 100 mls/hr IV DAILY [facility]; Protocol Stop: 06/25/20 15:59 Last Infusion: 06/24/20 09:49 Dose: Infused Documented by: Bumetanide 1 mg/ Syringe 4 mls @ 4 mls/min IV BID@0900,1700 [facility] Stop: 07/19/20 08:59 Last Admin: 06/24/20 18:24 Dose: 4 mls/min Documented by: Doxycycline Hyclate 100 mg/ (Dextrose) 110 mls @ 50 mls/hr IV Q12H [facility] Stop: 06/27/20 08:59 Last Infusion: 06/25/20 00:18 Dose: Infused Documented by: Insulin Aspart (Insulin Aspart 100 Units/Ml 3 Ml Pen) 0 units SC ACHS [facility]; Protocol Stop: 07/18/20 16:29 Last Admin: 06/24/20 22:21 Dose: 6 units Documented by: Insulin Glargine (Insulin Glargine 100 Unit/Ml Vial) 5 units SC QAM [facility] Stop: 07/23/20 08:59 Last Admin: 06/24/20 08:54 Dose: 5 units Documented by: Insulin Human NPH (Insulin Human Nph) 36 units SC DAILY [facility] Stop: 07/25/20 08:59 Isosorbide Mononitrate (Isosorbide [place] Extended Rel 30 Mg Tabcr) 30 mg PO DAILY [facility] Stop: 07/19/20 08:59 Last Admin: 06/24/20 08:50 Dose: 30 mg Documented by: Lisinopril (Lisinopril 5 Mg Tab) 5 mg PO DAILY [facility] Stop: 07/19/20 08:59 Last Admin: 06/19/20 10:50 Dose: Not Given Documented by: Metoprolol Succinate (Metoprolol Succ 50mg Ext Rel Tab) 50 mg PO DAILY [facility] Stop: 07/19/20 08:59 Last Admin: 06/24/20 08:48 Dose: 50 mg Documented by: Metoprolol Tartrate (Metoprolol Tartrate 1 Mg/Ml Vial) 5 mg IV Q1H PRN PRN Reason: Tachycardia Stop: 07/19/20 11:35 Last Admin: 06/19/20 13:20 Dose: 5 mg Documented by: Miscellaneous (Carbohydrates For Hypoglycemia ) 15 - 30 gm PO UD PRN PRN Reason: Hypoglycemia Protocol Stop: 07/18/20 14:30 Miscellaneous Information (Pharmacy Glycemic Mgmt Consult) 1 ea N/A UD PRN PRN Reason: Consult Stop: 07/18/20 17:33 Multivitamins/Minerals (Calcium 600mg + Vit D 400 Iu Tab) 1 tab PO DAILY [facility] Stop: 07/19/20 08:59 Last Admin: 06/24/20 08:47 Dose: 1 tab Documented by: Nitroglycerin (Nitroglycerin Sl 0.4 Mg/Tab Tab) 0.4 mg SL UD PRN PRN Reason: Chest Pain Stop: 07/18/20 14:30 Last Admin: 06/19/20 11:44 Dose: 0.4 mg Documented by: Nystatin (Nystatin Susp 500,000 U/5 Ml Udc) 5 ml PO QID [facility] Stop: 06/30/20 16:59 Last Admin: 06/24/20 22:16 Dose: Not Given Documented by: Pantoprazole Sodium (Pantoprazole 40 Mg Tab) 40 mg PO DAILY [facility] Stop: 07/19/20 08:59 Last Admin: 06/24/20 08:50 Dose: 40 mg Documented by: Polyethylene Glycol (Polyethylene (Miralax) 17 Gm Pack) 17 gm PO DAILY [facility] Stop: 07/20/20 16:59 Last Admin: 06/24/20 08:52 Dose: 17 gm Documented by: Sennosides (Senna 8.6 Mg Tab) 17.2 mg PO QAM [facility] Stop: 07/20/20 16:59 Last Admin: 06/24/20 08:50 Dose: 17.2 mg Documented by: Sucralfate (Sucralfate 1 Gm/10 Ml Udc) 1 gm PO QID [facility] Stop: 07/19/20 12:59 Last Admin: 06/24/20 22:15 Dose: Not Given Documented by: Zinc Sulfate (Zinc Sulfate 220 Mg Capsule) 220 mg PO QAM [facility] Stop: 07/18/20 14:29 Last Admin: 06/24/20 08:49 Dose: 220 mg Documented by: PG Care Time/CCT Total # of Minutes Spent Total Time Spent with Patient: Total time spent is greater than 50% in coordination of care (as documented) at patient's floor/unit and/or counseling patient: Coding Level of Care Code 60156 Subseq Hosp Care Lvl 3 Diagnoses Acute hypoxemic respiratory failure J96.01 Pneumonia due to COVID-19 virus U07.1; J12.89 Atrial fibrillation with RVR I48.91 Acute on chronic systolic ACC/AHA stage C congestive heart failure I50.23 Elevated troponin R77.8 Hyperglycemia due to type 2 diabetes mellitus E11.65 Gout M10.9 Ischemic cardiomyopathy I25.5 Hypertension I10 Dyslipidemia E78.5 Intractable hiccups R06.6 Mitral regurgitation I34.0 Hyponatremia E87.1 H/O splenectomy Z90.81 Constipation K59.00 Candidiasis of mouth and esophagus B37.81; B37.0 DVT prophylaxis Z29.9
[2020-06-25 09:02] LABS: BUN Creatinine Ratio 30.9 (10-20); Calcium 9.5 mg/dl (8.5-10.1); Creatinine Clr Calc Pharmacy 57.3 ml/min; Est GFR (African American) 76.3; Est GFR (Non-African American) 65.9; Potassium 3.7 mmol/L (3.5-5.1)
--- NOTE | 2020-06-25 12:39 | Cardiology Progress Note ---
Date of Service June 25, 2020 Assessment & Plan (1) Paroxysmal atrial fibrillation with rapid ventricular response: Patient continues to maintain sinus rhythm on oral amiodarone. Plan: Reduce amiodarone to twice per day (2) Pneumonia due to COVID-19 virus: Oxygen saturations being maintained while at rest but desats with activity and positioning now worse overnight requiring prone position higher O2 demands (3) Acute hypoxemic respiratory failure: (4) Ischemic cardiomyopathy: Continue IV Bumex watch renal function closely Resume lisinopril at reduced dose as blood pressure allows Supplement potassium today (5) Chronic systolic (congestive) heart failure: (6) Elevated troponin: Admission and Anticipated Discharge Date Admission Date: June 18, 2020 Subjective Full records and chart review performed. Care discussed with caregiver Still with high oxygen demands despite negative I's and O's and ongoing diuresis No further arrhythmias on telemetry Results & Data ([facility]) Vital Signs (Past 12 Hours) Vital Signs Temp Pulse Pulse Resp BP BP Pulse Ox 06/25/20 11:52 36.8 C 88 22 118/79 93 06/25/20 11:39 88 18 92 06/25/20 08:00 79 06/25/20 07:44 80 30 H 92 06/25/20 07:30 36.4 C L 81 22 130/84 85 L 06/25/20 05:04 80 24 89 L 06/25/20 03:41 36.5 C 84 24 89 L 06/25/20 01:39 82 28 H 135/77 89 L Laboratory Results Laboratory Results - last 24 hr 06/24/20 06/24/20 06/25/20 16:19 22:18 06:10 WBC RBC Hgb Hct MCV MCH MCHC RDW Std Deviation RDW Coeff of Maria Guadalupe Plt Count MPV APTT Cancelled PTT Ratio Cancelled Sodium Potassium Chloride Carbon Dioxide Anion Gap BUN Creatinine Est Cr Clr Drug Dosing Est GFR ( Amer) Est GFR (Non-Af Amer) BUN/Creatinine Ratio Glucose POC Glucose 247 H 220 H Calcium 06/25/20 06/25/20 06/25/20 07:59 07:59 11:57 WBC 9.00 RBC 4.93 Hgb 13.3 L Hct 40.5 L MCV 82.2 MCH 27.0 MCHC 32.8 RDW Std Deviation 45.5 RDW Coeff of Maria Guadalupe 15.2 H Plt Count 332 MPV 10.1 APTT PTT Ratio Sodium 134 L Potassium 3.7 Chloride 93 L Carbon Dioxide 34 H Anion Gap 7.0 BUN 33 H Creatinine 1.08 Est Cr Clr Drug Dosing 57.3 Est GFR ( Amer) 76.3 Est GFR (Non-Af Amer) 65.9 BUN/Creatinine Ratio 30.9 H Glucose 120 H POC Glucose 245 H Calcium 9.5
[2020-06-25] MEDS ORDERED: POTASSIUM CHLORIDE CRTAB 20 MEQ TABCR PO ONE (12:41)
--- NOTE | 2020-06-25 14:18 | Pharmacy Report ---
Pharmacy Glycemic Short Note 2 - Date of Service June 25, 2020 - Glycemic Short BSG Results (Last 24 hours): 06/24/20 06/24/20 06/25/20 16:19 22:18 07:59 Glucose 120 H POC Glucose 247 H 220 H 06/25/20 11:57 Glucose POC Glucose 245 H OUTPATIENT ANTIDIABETIC REGIMEN: * 70/30 insulin 25 units qam, 30 units qpm + ssi ASSESSMENT: 06/25 * 70 units SQ insulin administered over last 24 hrs, yet glycemic targets not met - although BSGs better yesterday than prior day * Fasting BSG 120 on AM PRP, no corresponding Accucheck this AM. This is with 5 units Lantus on board and with 32 units NPH given yesterday AM * Post-prandial hyperglycemia remains problematic - continue to up-titrate NPH and prandial Novolog 06/24 * Fasting BSG 127-182 this AM w/ 0 Lantus on board (held by RN yesterday) but did receive 25 units NPH in the AM * BSGs did climb quickly thru the day. Post-prandial hyperglycemia worsening as the day progressed. * Will increase NPH dose to combat steroid induced hyperglycemia from AM dexamethasone. Will also increase Novolog prandial dose dose * Given the downward trend in BSGs overnight as observed earlier this admission, continue low dose Lantus in the AM (no PM dosing) 06/22 * 68 units SQ insulin administered over last 24 hrs - patient consumed 2 of 3 meals yesterday (tends to skip breakfast per german professor of carb intake) * Dexamethasone 6mg IV daily continues * Mild hypoglycemia present on AM labs (FSB 68-69) with 15 units Lantus on board and after receiving NPH 25 units (~0.25units/kg) w/ AM dexamethasone * Unfortunately no Novolog, NPH or Lantus were administered this AM - although dexamethasone IV still given. Pre-lunch hyperglycemia developed as a result. Unclear what patient was given to correct hypoglycemia this AM. Plan to give 20units NPH at noon today to address hyperglycemia that is likely to ensue. BID Lantus will be changed to once daily in the AM at a reduced dose. * Novolog will continue at "severe" stress dosing 06/21 * 37 units SQ insulin administered over last 24 hrs * Most BSGs at goal over last 24 hrs w/ the exception of HS hyperglycemia * Dexamethasone IV, broad spectrum abx and heparin gtt continue at this time. PO intake appears poor. * Current insulin orders appear appropriate to continue for the next 24 hrs, however given this patient's poor PO intake we may need to scale back insulin (NPH + Lantus) doses in the near future PLAN FOR INPATIENT GLYCEMIC CONTROL: * Hold outpatient oral diabetes medications * Basal insulin * NPH 36 units (0.44units/kg) x1 this AM, increase to 40 units (~0.5units/kg) daily in the AM with dexamethasone IV * Lantus 5 units Q AM * Bolus insulin * NovoLog per scale ACHS or Q6hrs while NPO * Goal Range: Low 110 mg/dL - High 140 mg/dL * Correction Factor: 15 mg/dL/unit * Nutritional / Prandial insulin per carb ratio of 1 unit per 3.5 grams CHO consumed PLAN FOR DISCHARGE: * to be determined
[2020-06-25] MEDS: DULoxetine HCL 30 MG CAP PO SCH (19:07)
[2020-06-26] MEDS: ENOXAPARIN 80 MG/0.8 ML SYR SQ SCH ×2 (05:14→17:41)
[2020-06-26] MEDS: BUMETANIDE 1 MG in SYRINGE 0 ML IV SCH (09:03)
[2020-06-26] MEDS: DOCUSATE SODIUM 100 MG CAP PO SCH (09:06)
[2020-06-26] MEDS: ZINC SULFATE 220 MG CAPSULE PO SCH (09:06)
[2020-06-26] MEDS: SENNA 8.6 MG TAB PO SCH (09:07)
[2020-06-26] MEDS: allopurinoL 300 MG TAB PO SCH (09:07)
[2020-06-26] MEDS: METOPROLOL SUCC 50MG EXT REL TAB PO SCH (09:07)
[2020-06-26] MEDS: SUCRALFATE 1 GM/10 ML UDC PO SCH ×4 (09:08→21:24)
[2020-06-26] MEDS: NYSTATIN SUSP 500,000 U/5 ML UDC PO SCH ×4 (09:08→21:24)
[2020-06-26] MEDS: ISOSORBIDE MONO EXTENDED REL 30 MG TABCR PO SCH (09:08)
[2020-06-26] MEDS: PANTOprazole 40 MG TAB PO SCH (09:08)
[2020-06-26] MEDS: AMIODARONE 200 MG TAB PO SCH ×2 (09:08→17:38)
[2020-06-26] MEDS: ASPIRIN 81 MG ECTAB PO SCH (09:08)
[2020-06-26] MEDS: CALCIUM 600MG + VIT D 400 IU TAB PO SCH (09:08)
[2020-06-26] MEDS: POLYETHYLENE (MIRALAX) 17 GM PACK PO SCH (09:09)
[2020-06-26] MEDS: CLOPIDOGREL BISULFATE 75 MG TAB PO SCH (09:09)
[2020-06-26] MEDS ORDERED: chlorproMAZINE HCL 25 MG TAB PO ONE (09:22)
--- NOTE | 2020-06-26 09:26 | Hospitalist Progress Note ---
Date of Service June 26, 2020 Assessment & Plan (1) Acute hypoxemic respiratory failure: due to acute on chronic systolic CHF and pneumonia due to COVID-19 virus infection. patient breathing is a little more labored this morning up to 40L and 100%, he had success with laying prone last evening I encouraged him to self prone as much as he can, best way to prevent intubation he will do it once breakfast settles Cont steroids, abx, supportive care for COVID-19 pneumonia. See below. Keep sats >88% discussed that he would require BIPAP if saturations drop further, he understands trying to avoid intubation but he does not have much room (2) Pneumonia due to COVID-19 virus: requiring more oxygen at 40L and 100% Day #9 of 10 of dexamethasone 6 mg IV every morning Completed 5-day course of Remdesivir IV with stable ALT; AST has been high but only mild. Ventolin prn. Zinc sulfate daily x 10 days. Procalcitonin elevated; could have possible bacterial pneumonia in setting of COVID-19 infection. Also he is splenectomy state and therefore another risk factor for bacterial superinfection. 7 days of Rocephin and Doxycycline IV completed on 06/25/20 Cont pulmonary toilet - Flutter valve, Mucinex, Incentive spirometry. Keep sats 90-94%. Self-prone as much as possible, he is more compliant with this Lovenox BID, will eventually need Coumadin Again if any worsening while on HFNC change to BIPAP. Remains full code. (3) Atrial fibrillation with RVR: New onset earlier this admission. Resolved with amiodarone infusion. Appreciate Dr Lawson's input. decreased amiodarone 200mg to BID on 06/25 continue Lovenox 1mg/kg BID to limit fluid intake, will need Coumadin eventually Continue metoprolol succinate. TSH and K/mag wnl. rate and rhythm is stable (4) Acute on chronic systolic ACC/AHA stage C congestive heart failure: Acute on chronic systolic CHF. CHF 2nd to ischemic cardiomyopathy. EF ~30% on echo done thru correction system earlier in 2019. bumex 1mg IV BID right now, Cr is stable at 1.08, K is 3.7 on 06/25, repeat tomorrow Cont metoprolol succinate; holding TIMMY but resume as BP allows. Serial BMP and magnesium levels. Appreciate cardiology assistance by Dr Lawson, [facility] cardiology. (5) Elevated troponin: Likely Myocardial demand ischemia in setting of COVID-19 infection, resp failure, rapid a.fib, etc. (6) Hyperglycemia due to type 2 diabetes mellitus: NPH daily to cover steroids. Lantus. Novolog correction & carb ratio. A1c 10.4%. Pharmacy assistance appreciated. sugars better the past 48 hours with adjusting Novolog and NPH (7) Gout: Continue allopurinol prophylaxis No flares (8) Ischemic cardiomyopathy: EF 20-30% in the past. Cont BB. Holding TIMMY due to low-normal BPs. Cont asa/plavix. (9) Hypertension: See above re: intermittenly low-normal BPs (10) Dyslipidemia: Hold atorvastatin given high AST (11) Intractable hiccups: Ongoing despite PPI + carafate Rx for GERD. 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 (15) Constipation: miralax w senna improved (16) Candidiasis of mouth and esophagus: nystatin minoo 5cc qid improved (17) DVT prophylaxis: Lovenox BID prognosis guarded given his numerous medical issues and worsening O2 requirements and probable development of ARDS from COVID continue to prone as much as possible, if he requires BIPAP then will likely need intubated as he is getting fatigued Admission and Anticipated Discharge Date Admission Date: June 18, 2020 Subjective patient c/o indigestion, hiccups, burping a lot he just finished eating breakfast and taking his medications he moved his bowels this morning, no fever/chills, no nausea continues with labored breathing, he had success with laying prone yesterday, he is gonna do it again later this morning no labs today, check tomorrow Review of Systems Review of Systems: All systems reviewed & are unremarkable except as noted in Subjective Constitutional: + weakness; no fever, no chills, no sweats and no fatigue Respiratory: + dyspnea, + dyspnea on exertion and + problem reported (hiccups); no cough Cardiovascular: no chest pain and no edema Gastrointestinal: + belching and + bloating; no abdominal pain, no nausea, no vomiting, no constipation and no diarrhea/loose stools Physical Exam Constitutional: well developed, well nourished and comfortable; no acute distress Neck: trachea midline, no thyromegaly Respiratory: normal respiratory effort and + tachypneic; no respiratory distress, no labored breathing and no cough Auscultation: lungs clear to auscultation bilaterally Cardiovascular: RRR, no murmur, no edema Gastrointestinal (Abdomen): normal bowel sounds, soft, nontender, no hepatosplenomegaly Musculoskeletal: no cyanosis or clubbing, extremities motor strength 5/5 Skin: no rashes, warm and dry Neurologic: patellar DTR's 2+ bilat, sensation intact and PERRL, EOMI, accommodation nl, no face palsy, no dysarthria Psychiatric: A+Ox3, euthymic affect Lymphatic: no cervical or axillary lymphadenopathy Results & Data Results & Data ([facility]) Vital Signs (Past 12 Hours) Vital Signs Temp Pulse Resp BP BP Pulse Ox 06/26/20 08:02 81 22 92 06/26/20 07:13 37.1 C 81 14 131/69 93 06/26/20 03:48 76 20 93 06/26/20 03:41 36.5 C 75 23 120/78 93 06/25/20 23:37 36.9 C 78 24 116/78 93 06/25/20 22:01 79 28 H 91 Laboratory Results Laboratory Results - last 24 hr 06/25/20 06/25/20 06/25/20 11:57 16:01 20:04 POC Glucose 245 H 276 H 261 H 06/26/20 07:36 POC Glucose 86 Medications Administered Current Inpatient Medications Acetaminophen (Acetaminophen 325 Mg Tab) 650 mg PO Q4H PRN PRN Reason: Pain or Fever Stop: 07/18/20 14:30 Last Admin: 06/19/20 07:47 Dose: 650 mg Documented by: Albuterol (Albut/Ipratrop 3mg/0.5mg Neb 3 Ml Vial) 3 ml NEB Q4 PRN PRN Reason: Shortness Of Breath Or Wheezing Stop: 07/19/20 08:14 Allopurinol (Allop[facility]ol 300 Mg Tab) [facility] [place] Stop: 07/19/20 08:59 Last Admin: 06/26/20 09:07 Dose: 150 mg Documented by: Amiodarone HCl (Amiodarone 200 Mg Tab) 200 mg PO BIDM [facility] Stop: 07/25/20 16:59 Last Admin: 06/26/20 09:08 Dose: 200 mg Documented by: Aspirin (Aspirin 81 Mg Ectab) 81 mg PO QAM [facility] Stop: 07/19/20 08:59 Last Admin: 06/26/20 09:08 Dose: 81 mg Documented by: Atorvastatin Calcium (Atorvastatin 10 Mg Tab) 10 mg PO HS [facility] Stop: 07/18/20 20:59 Last Admin: 06/18/20 20:36 Dose: 10 mg Documented by: Baclofen (Baclofen 10 Mg Tab) 10 mg PO BID [facility] Stop: 07/18/20 20:59 Last Admin: 06/19/20 10:49 Dose: Not Given Documented by: Bumetanide (Bumetanide 1 Mg Tab) 1 mg PO QAM [facility] Stop: 07/21/20 11:59 Last Admin: 06/22/20 08:56 Dose: 1 mg Documented by: Calcium Carbonate (Calcium Carbonate 500 Mg Chewable Tab) 400 mg PO TID PRN PRN Reason: Unknown Stop: 07/18/20 14:30 Clopidogrel Bisulfate (Clopidogrel Bisulfate 75 Mg Tab) 75 mg PO DAILY [facility] Stop: 07/19/20 08:59 Last Admin: 06/26/20 09:09 Dose: 75 mg Documented by: Dextrose (Dextrose 50% 50 Ml Syringe) 25 - 50 ml IV UD PRN; Protocol PRN Reason: Hypoglycemia Protocol Stop: 07/18/20 14:30 Docusate Sodium (Docusate Sodium 100 Mg Cap) 200 mg PO DAILY [facility] Stop: 07/19/20 08:59 Last Admin: 06/26/20 09:06 Dose: 200 mg Documented by: Duloxetine HCl (Duloxetine Hcl 30 Mg Cap) 30 mg PO HS [facility] Stop: 07/18/20 20:59 Last Admin: 06/25/20 19:07 Dose: 30 mg Documented by: Enoxaparin Sodium (Enoxaparin 80 Mg/0.8 Ml Syr) 80 mg SQ Q12H [facility] Stop: 07/24/20 17:59 Last Admin: 06/26/20 05:14 Dose: 80 mg Documented by: Glucagon (Glucagon For Inj 1 Mg Vial) 1 mg SQ UD PRN; Protocol PRN Reason: Hypoglycemia Protocol Stop: 07/18/20 14:30 Glucose (Glucose 10 Tabs/Tube) 4 - 8 tabs PO UD PRN; Protocol PRN Reason: Hypoglycemia Protocol Stop: 07/18/20 14:30 Glucose (Glucose 40% Gel 15 Gm Tube) 15 - 30 gm PO UD PRN; Protocol PRN Reason: Hypoglycemia Protocol Stop: 07/18/20 14:30 Dexamethasone 6 mg/ Syringe 1.5 mls @ 1 mls/min IV QAM [facility] Stop: 07/19/20 08:59 Last Admin: 06/25/20 08:48 Dose: 1 mls/min Documented by: Bumetanide 1 mg/ Syringe 4 mls @ 4 mls/min IV BID@0900,1700 [facility] Stop: 07/19/20 08:59 Last Admin: 06/26/20 09:03 Dose: 4 mls/min Documented by: Insulin Aspart (Insulin Aspart 100 Units/Ml 3 Ml Pen) 0 units SC [facility]; Protocol Stop: 07/18/20 16:29 Last Admin: 06/25/20 20:29 Dose: 9 units Documented by: Insulin Glargine (Insulin Glargine Solostar 100 Units/Ml 3 Ml Pen) [facility] units SC [facility] [place] Stop: 07/26/20 08:59 Insulin Human NPH (Insulin Human Nph) 40 units SC DAILY [facility] Stop: 07/26/20 08:59 Isosorbide Mononitrate (Isosorbide Edgar Extended Rel 30 Mg Tabcr) 30 mg PO DAILY [facility] Stop: 07/19/20 08:59 Last Admin: 06/26/20 09:08 Dose: 30 mg Documented by: Lisinopril (Lisinopril 5 Mg Tab) 5 mg PO DAILY [facility] Stop: 07/19/20 08:59 Last Admin: 06/19/20 10:50 Dose: Not Given Documented by: Metoprolol Succinate (Metoprolol Succ 50mg Ext Rel Tab) 50 mg PO DAILY [facility] Stop: 07/19/20 08:59 Last Admin: 06/26/20 09:07 Dose: 50 mg Documented by: Metoprolol Tartrate (Metoprolol Tartrate 1 Mg/Ml Vial) 5 mg IV Q1H PRN PRN Reason: Tachycardia Stop: 07/19/20 11:35 Last Admin: 06/19/20 13:20 Dose: 5 mg Documented by: Miscellaneous (Carbohydrates For Hypoglycemia ) 15 - 30 gm PO UD PRN PRN Reason: Hypoglycemia Protocol Stop: 07/18/20 14:30 Miscellaneous Information (Pharmacy Glycemic Mgmt Consult) 1 ea N/A UD PRN PRN Reason: Consult Stop: 07/18/20 17:33 Multivitamins/Minerals (Calcium 600mg + Vit D 400 Iu Tab) 1 tab PO DAILY [facility] Stop: 07/19/20 08:59 Last Admin: 06/26/20 09:08 Dose: 1 tab Documented by: Nitroglycerin (Nitroglycerin Sl 0.4 Mg/Tab Tab) 0.4 mg SL UD PRN PRN Reason: Chest Pain Stop: 07/18/20 14:30 Last Admin: 06/19/20 11:44 Dose: 0.4 mg Documented by: Nystatin (Nystatin Susp 500,000 U/5 Ml Udc) 5 ml PO QID [facility] Stop: 06/30/20 16:59 Last Admin: 06/26/20 09:08 Dose: 5 ml Documented by: Pantoprazole Sodium (Pantoprazole 40 Mg Tab) 40 mg PO DAILY [facility] Stop: 07/19/20 08:59 Last Admin: 06/26/20 09:08 Dose: 40 mg Documented by: Polyethylene Glycol (Polyethylene (Miralax) 17 Gm Pack) 17 gm PO DAILY [facility] Stop: 07/20/20 16:59 Last Admin: 06/26/20 09:09 Dose: Not Given Documented by: Sennosides (Senna 8.6 Mg Tab) 17.2 mg PO QAM [facility] Stop: 07/20/20 16:59 Last Admin: 06/26/20 09:07 Dose: 17.2 mg Documented by: Sucralfate (Sucralfate 1 Gm/10 Ml Udc) 1 gm PO QID [facility] Stop: 07/19/20 12:59 Last Admin: 06/26/20 09:08 Dose: 1 gm Documented by: Zinc Sulfate (Zinc Sulfate 220 Mg Capsule) 220 mg PO QAM [facility] Stop: 07/18/20 14:29 Last Admin: 06/26/20 09:06 Dose: 220 mg Documented by: PG Care Time/CCT Total # of Minutes Spent Total Time Spent with Patient: Total time spent is greater than 50% in coordination of care (as documented) at patient's floor/unit and/or counseling patient: Coding Level of Care Code 47022 Subseq Hosp Care Lvl 3 Diagnoses Acute hypoxemic respiratory failure J96.01 Pneumonia due to COVID-19 virus U07.1; J12.89 Atrial fibrillation with RVR I48.91 Acute on chronic systolic ACC/AHA stage C congestive heart failure I50.23 Elevated troponin R77.8 Hyperglycemia due to type 2 diabetes mellitus E11.65 Gout M10.9 Ischemic cardiomyopathy I25.5 Hypertension I10 Dyslipidemia E78.5 Intractable hiccups R06.6 Mitral regurgitation I34.0 Hyponatremia E87.1 H/O splenectomy Z90.81 Constipation K59.00 Candidiasis of mouth and esophagus B37.81; B37.0 DVT prophylaxis Z29.9
[2020-06-26] MEDS: INSULIN HUMAN NPH SC SCH (09:38)
[2020-06-26] MEDS: INSULIN GLARGINE SOLOSTAR 100 UNITS/ML 3 ML PEN SC SCH (09:39)
[2020-06-26] MEDS: INSULIN ASPART 100 UNITS/ML 3 ML PEN SC SCH ×4 (09:41→21:23)
[2020-06-26] MEDS: dexAMETHasone 6 MG in SYRINGE 0 ML IV SCH (10:58)
[2020-06-26] MEDS: BUMETANIDE 2 MG in SYRINGE 0 ML IV SCH (17:38)
[2020-06-26] MEDS: DULoxetine HCL 30 MG CAP PO SCH (21:24)
[2020-06-27] MEDS: ENOXAPARIN 80 MG/0.8 ML SYR SQ SCH ×2 (06:03→17:53)
[2020-06-27 07:19] LABS: Hematocrit (blood only) 41.7 % (42-52); Hemoglobin 13.6 g/dL (14.0-18.0); Mean Corpuscular Hgb Conc 32.6 g/dL (32-36); Mean Corpuscular Volume 82.9 fL (80-100); Mean Platelet Volume 10.3 fL (7.4-10.4); Platelet Count 347 K/uL (130-400); RDW Coefficient of Variation 15.5 % (11.5-14.5); Red Blood Count 5.03 M/uL (4.7-6.1); White Blood Count 7.52 K/uL (4.8-10.8)
[2020-06-27 07:53] LABS: BUN Creatinine Ratio 36.5 (10-20); Calcium 9.8 mg/dl (8.5-10.1); Creatinine Clr Calc Pharmacy 55.4 ml/min; Est GFR (Non-African American) 55.2; Potassium 3.8 mmol/L (3.5-5.1)
--- NOTE | 2020-06-27 08:53 | Hospitalist Progress Note ---
Date of Service June 27, 2020 Assessment & Plan (1) Acute hypoxemic respiratory failure: due to acute on chronic systolic CHF and pneumonia due to COVID-19 virus infection. patient breathing is less labored this morning, RR 15-17, laying prone stable at 40L and 80-90%, he had success with laying prone all night and intermittently during the day I encouraged him to self prone as much as he can, best way to prevent intubation Cont steroids, abx, supportive care for COVID-19 pneumonia. See below. Keep sats >88% discussed that he would require BIPAP if saturations drop further, he understands trying to avoid intubation, honestly looks better today than yesterday (2) Pneumonia due to COVID-19 virus: requiring more oxygen at 40L and 80-90% Day #10 of 10 of dexamethasone 6 mg IV daily Completed 5-day course of Remdesivir IV with stable ALT; AST has been high but only mild. Ventolin prn. Zinc sulfate daily x 10 days. Procalcitonin elevated; could have possible bacterial pneumonia in setting of COVID-19 infection. Also he is splenectomy state and therefore another risk factor for bacterial superinfection. 7 days of Rocephin and Doxycycline IV completed on 06/25/20 Cont pulmonary toilet - Flutter valve, Mucinex, Incentive spirometry. Keep sats > 88% Self-prone as much as possible, he is more compliant with this the past two days and it is working Lovenox BID, will eventually need Coumadin Again if any worsening while on HFNC change to BIPAP. Remains full code. (3) Atrial fibrillation with RVR: New onset earlier this admission. Resolved with amiodarone infusion. Appreciate Dr Lawson's input. decreased amiodarone 200mg to BID on 06/25 continue Lovenox 1mg/kg BID to limit fluid intake, will need Coumadin eventually Continue metoprolol succinate. TSH and K/mag wnl. rate and rhythm is stable on monitor (4) Acute on chronic systolic ACC/AHA stage C congestive heart failure: Acute on chronic systolic CHF. CHF 2nd to ischemic cardiomyopathy. EF ~30% on echo done thru [facility] earlier in 2019. bumex increased to 2mg IV BID on 06/26, better diuresis on 06/26 slight bump in Cr to 1.25 and BUN 46, CO2 36 continue 2mg IV BID today, check BMP in the morning, may want to back down to 1mg IV BID tomorrow Cont metoprolol succinate; holding TIMMY but resume as BP allows. Serial BMP and magnesium levels. Appreciate cardiology assistance by Dr Lawson, [facility] cardiology. (5) Elevated troponin: Likely Myocardial demand ischemia in setting of COVID-19 infection, resp failure, rapid a.fib, etc. (6) Hyperglycemia due to type 2 diabetes mellitus: NPH daily to cover steroids. Lantus. Novolog correction & carb ratio. A1c 10.4%. Pharmacy assistance appreciated. sugars better the past 72 hours with adjusting Novolog and NPH stopping Decadron today (7) Gout: Continue allopurinol prophylaxis No flares (8) Ischemic cardiomyopathy: EF 20-30% in the past. Cont BB. Holding TIMMY due to low-normal BPs. Cont asa/plavix. Bumex 2mg IV BID for diuresis, working well (9) Hypertension: See above re: intermittenly low-normal BPs (10) Dyslipidemia: Hold atorvastatin given high AST (11) Intractable hiccups: Ongoing despite PPI + carafate Rx for GERD. 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 (15) Constipation: miralax w senna improved (16) Candidiasis of mouth and esophagus: nystatin minoo 5cc qid improved (17) DVT prophylaxis: Lovenox BID prognosis guarded given his numerous medical issues and worsening O2 requirements and probable development of ARDS from COVID continue to prone as much as possible, it is working well, not tachypneic today, anticipate at least another week in the hospital Admission and Anticipated Discharge Date Admission Date: June 18, 2020 Subjective patient doing well, no distress at all this morning, breathing 15-17 per minute fluctuating between 40L 80-90% saturations were 84% laying supine, eitan to 90% laying prone, told him to lay prone as much as possible per RN, he was prone most of the night labs today look stable, Cr is 1.25, BUN 46, CO2 36 had some extra diuresis with the Bumex 2mg IV BID eating well, no fever, minimal cough, no chest pain, no GI complaints Review of Systems Review of Systems: All systems reviewed & are unremarkable except as noted in Subjective Physical Exam Constitutional: well developed, well nourished and comfortable; no acute distress Neck: trachea midline, no thyromegaly Respiratory: normal respiratory effort and + tachypneic; no respiratory distress, no labored breathing and no cough Auscultation: lungs clear to auscultation bilaterally Cardiovascular: RRR, no murmur, no edema Gastrointestinal (Abdomen): normal bowel sounds, soft, nontender, no hepatosplenomegaly Musculoskeletal: no cyanosis or clubbing, extremities motor strength 5/5 Skin: no rashes, warm and dry Neurologic: patellar DTR's 2+ bilat, sensation intact and PERRL, EOMI, accommodation nl, no face palsy, no dysarthria Psychiatric: A+Ox3, euthymic affect Lymphatic: no cervical or axillary lymphadenopathy Results & Data Results & Data ([facility]) Vital Signs (Past 12 Hours) Vital Signs Temp Pulse Resp BP BP Pulse Ox 06/27/20 07:45 81 18 94 06/27/20 07:14 36.4 C L 83 22 138/82 98 06/27/20 04:04 83 26 H 95 06/27/20 03:21 36.7 C 87 24 120/77 94 06/26/20 23:29 94 H 22 85 L 06/26/20 23:12 36.5 C 86 30 H 114/73 83 L Laboratory Results Laboratory Results - last 24 hr 06/26/20 06/26/20 06/26/20 11:34 16:45 20:14 WBC RBC Hgb Hct MCV MCH MCHC RDW Std Deviation RDW Coeff of Maria Guadalupe Plt Count MPV Sodium Potassium Chloride Carbon Dioxide Anion Gap BUN Creatinine Est Cr Clr Drug Dosing Est GFR ( Amer) Est GFR (Non-Af Amer) BUN/Creatinine Ratio Glucose POC Glucose 178 H 106 H 142 H Calcium 06/27/20 06/27/20 06/27/20 06:16 06:16 07:43 WBC 7.52 RBC 5.03 Hgb 13.6 L Hct 41.7 L MCV 82.9 MCH 27.0 MCHC 32.6 RDW Std Deviation 47.0 H RDW Coeff of Maria Guadalupe 15.5 H Plt Count 347 MPV 10.3 Sodium 137 Potassium 3.8 Chloride 94 L Carbon Dioxide 36 H Anion Gap 7.0 BUN 46 H Creatinine 1.25 Est Cr Clr Drug Dosing 55.4 Est GFR ( Amer) 64.0 Est GFR (Non-Af Amer) 55.2 BUN/Creatinine Ratio 36.5 H Glucose 113 H POC Glucose 103 H Calcium 9.8 Medications Administered Current Inpatient Medications Acetaminophen (Acetaminophen 325 Mg Tab) 650 mg PO Q4H PRN PRN Reason: Pain or Fever Stop: 07/18/20 14:30 Last Admin: 06/19/20 07:47 Dose: 650 mg Documented by: Albuterol (Albut/Ipratrop 3mg/0.5mg Neb 3 Ml Vial) 3 ml NEB Q4 PRN PRN Reason: Shortness Of Breath Or Wheezing Stop: 07/19/20 08:14 Allopurinol (Allopurinol 300 Mg Tab) 150 mg PO [facility] Stop: 07/19/20 08:59 Last Admin: 06/26/20 09:07 Dose: 150 mg Documented by: Amiodarone HCl (Amiodarone 200 Mg Tab) 200 mg PO BIDM [facility] Stop: 07/25/20 16:59 Last Admin: 06/26/20 17:38 Dose: 200 mg Documented by: Aspirin (Aspirin 81 Mg Ectab) 81 mg PO QAM [facility] Stop: 07/19/20 08:59 Last Admin: 06/26/20 09:08 Dose: 81 mg Documented by: Atorvastatin Calcium (Atorvastatin 10 Mg Tab) 10 mg PO [facility] Stop: 07/18/20 20:59 Last Admin: 06/18/20 20:36 Dose: 10 mg Documented by: Baclofen (Baclofen 10 Mg Tab) 10 mg PO BID [facility] Stop: 07/18/20 20:59 Last Admin: 06/19/20 10:49 Dose: Not Given Documented by: Bumetanide (Bumetanide 1 Mg Tab) [facility] Stop: 07/21/20 11:59 Last Admin: 06/22/20 08:56 Dose: 1 mg Documented by: Calcium Carbonate (Calcium Carbonate 500 Mg Chewable Tab) 400 mg PO TID PRN PRN Reason: Unknown Stop: 07/18/20 14:30 Clopidogrel Bisulfate (Clopidogrel Bisulfate 75 Mg Tab) 75 mg PO DAILY [facility] Stop: 07/19/20 08:59 Last Admin: 06/26/20 09:09 Dose: 75 mg Documented by: Dextrose (Dextrose 50% 50 Ml Syringe) 25 - 50 ml IV UD PRN; Protocol PRN Reason: Hypoglycemia Protocol Stop: 07/18/20 14:30 Docusate Sodium (Docusate Sodium 100 Mg Cap) 200 mg PO DAILY [facility] Stop: 07/19/20 08:59 Last Admin: 06/26/20 09:06 Dose: 200 mg Documented by: Duloxetine HCl (Duloxetine Hcl 30 Mg Cap) 30 mg PO HS [facility] Stop: 07/18/20 20:59 Last Admin: 06/26/20 21:24 Dose: 30 mg Documented by: Enoxaparin Sodium (Enoxaparin 80 Mg/0.8 Ml Syr) 80 mg SQ Q12H [facility] Stop: 07/24/20 17:59 Last Admin: 06/27/20 06:03 Dose: 80 mg Documented by: Glucagon (Glucagon For Inj 1 Mg Vial) 1 mg SQ UD PRN; Protocol PRN Reason: Hypoglycemia Protocol Stop: 07/18/20 14:30 Glucose (Glucose 10 Tabs/Tube) 4 - 8 tabs PO UD PRN; Protocol PRN Reason: Hypoglycemia Protocol Stop: 07/18/20 14:30 Glucose (Glucose 40% Gel 15 Gm Tube) 15 - 30 gm PO UD PRN; Protocol PRN Reason: Hypoglycemia Protocol Stop: 07/18/20 14:30 Dexamethasone 6 mg/ Syringe 1.5 mls @ 1 mls/min [facility] [place] Stop: 07/19/20 08:59 Last Admin: 06/26/20 10:58 Dose: 1 mls/min Documented by: Bumetanide 2 mg/ Syringe 8 mls @ 4 mls/min IV BID@0900,1700 [facility] Stop: 07/26/20 16:59 Last Admin: 06/26/20 17:38 Dose: 4 mls/min Documented by: Insulin Aspart (Insulin Aspart 100 Units/Ml 3 Ml Pen) 0 units SC [facility]; Protocol Stop: 07/18/20 16:29 Last Admin: 06/26/20 21:23 Dose: 1 units Documented by: Insulin Glargine (Insulin Glargine Solostar 100 Units/Ml 3 Ml Pen) 5 units SC [facility] Stop: 07/26/20 08:59 Last Admin: 06/26/20 09:39 Dose: 5 units Documented by: Insulin Human NPH (Insulin Human Nph) 40 units SC DAILY [facility] Stop: 07/26/20 08:59 Last Admin: 06/26/20 09:38 Dose: 40 units Documented by: Isosorbide Mononitrate (Isosorbide Jerome Extended Rel 30 Mg Tabcr) 30 mg PO DAILY [facility] Stop: 07/19/20 08:59 Last Admin: 06/26/20 09:08 Dose: 30 mg Documented by: Lisinopril (Lisinopril 5 Mg Tab) 5 mg PO DAILY [facility] Stop: 07/19/20 08:59 Last Admin: 06/19/20 10:50 Dose: Not Given Documented by: Metoprolol Succinate (Metoprolol Succ 50mg Ext Rel Tab) 50 mg PO DAILY [facility] Stop: 07/19/20 08:59 Last Admin: 06/26/20 09:07 Dose: 50 mg Documented by: Metoprolol Tartrate (Metoprolol Tartrate 1 Mg/Ml Vial) 5 mg IV Q1H PRN PRN Reason: Tachycardia Stop: 07/19/20 11:35 Last Admin: 06/19/20 13:20 Dose: 5 mg Documented by: Miscellaneous (Carbohydrates For Hypoglycemia ) 15 - 30 gm PO UD PRN PRN Reason: Hypoglycemia Protocol Stop: 07/18/20 14:30 Miscellaneous Information (Pharmacy Glycemic Mgmt Consult) 1 ea N/A UD PRN PRN Reason: Consult Stop: 07/18/20 17:33 Multivitamins/Minerals (Calcium 600mg + Vit D 400 Iu Tab) 1 tab PO DAILY [facility] Stop: 07/19/20 08:59 Last Admin: 06/26/20 09:08 Dose: 1 tab Documented by: Nitroglycerin (Nitroglycerin Sl 0.4 Mg/Tab Tab) 0.4 mg SL UD PRN PRN Reason: Chest Pain Stop: 07/18/20 14:30 Last Admin: 06/19/20 11:44 Dose: 0.4 mg Documented by: Nystatin (Nystatin Susp 500,000 U/5 Ml Udc) 5 ml PO QID [facility] Stop: 06/30/20 16:59 Last Admin: 06/26/20 21:24 Dose: 5 ml Documented by: Pantoprazole Sodium (Pantoprazole 40 Mg Tab) 40 mg PO DAILY [facility] Stop: 07/19/20 08:59 Last Admin: 06/26/20 09:08 Dose: 40 mg Documented by: Polyethylene Glycol (Polyethylene (Miralax) 17 Gm Pack) 17 gm PO DAILY [facility] Stop: 07/20/20 16:59 Last Admin: 06/26/20 09:09 Dose: Not Given Documented by: Sennosides (Senna 8.6 Mg Tab) 17.2 mg PO QAM [facility] Stop: 07/20/20 16:59 Last Admin: 06/26/20 09:07 Dose: 17.2 mg Documented by: Sucralfate (Sucralfate 1 Gm/10 Ml Udc) 1 gm PO QID [facility] Stop: 07/19/20 12:59 Last Admin: 06/26/20 21:24 Dose: 1 gm Documented by: Zinc Sulfate (Zinc Sulfate 220 Mg Capsule) 220 mg PO QAM [facility] Stop: 07/18/20 14:29 Last Admin: 06/26/20 09:06 Dose: 220 mg Documented by: PG Care Time/CCT Total # of Minutes Spent Total Time Spent with Patient: Total time spent is greater than 50% in coordination of care (as documented) at patient's floor/unit and/or counseling patient: Coding Level of Care Code 13407 Subseq Hosp Care Lvl 3 Diagnoses Acute hypoxemic respiratory failure J96.01 Pneumonia due to COVID-19 virus U07.1; J12.89 Atrial fibrillation with RVR I48.91 Acute on chronic systolic ACC/AHA stage C congestive heart failure I50.23 Elevated troponin R77.8 Hyperglycemia due to type 2 diabetes mellitus E11.65 Gout M10.9 Ischemic cardiomyopathy I25.5 Hypertension I10 Dyslipidemia E78.5 Intractable hiccups R06.6 Mitral regurgitation I34.0 Hyponatremia E87.1 H/O splenectomy Z90.81 Constipation K59.00 Candidiasis of mouth and esophagus B37.81; B37.0 DVT prophylaxis Z29.9
[2020-06-27] MEDS: INSULIN ASPART 100 UNITS/ML 3 ML PEN SC SCH ×4 (09:09→21:28)
[2020-06-27] MEDS: dexAMETHasone 6 MG in SYRINGE 0 ML IV SCH (09:10)
[2020-06-27] MEDS: BUMETANIDE 2 MG in SYRINGE 0 ML IV SCH ×2 (09:10→17:48)
[2020-06-27] MEDS: SUCRALFATE 1 GM/10 ML UDC PO SCH ×4 (09:11→20:36)
[2020-06-27] MEDS: CALCIUM 600MG + VIT D 400 IU TAB PO SCH (09:11)
[2020-06-27] MEDS: AMIODARONE 200 MG TAB PO SCH ×2 (09:11→17:52)
[2020-06-27] MEDS: ISOSORBIDE MONO EXTENDED REL 30 MG TABCR PO SCH (09:12)
[2020-06-27] MEDS: DOCUSATE SODIUM 100 MG CAP PO SCH (09:12)
[2020-06-27] MEDS: ASPIRIN 81 MG ECTAB PO SCH (09:12)
[2020-06-27] MEDS: INSULIN GLARGINE SOLOSTAR 100 UNITS/ML 3 ML PEN SC SCH (09:13)
[2020-06-27] MEDS: POLYETHYLENE (MIRALAX) 17 GM PACK PO SCH (09:13)
[2020-06-27] MEDS: NYSTATIN SUSP 500,000 U/5 ML UDC PO SCH ×4 (09:14→20:37)
[2020-06-27] MEDS: INSULIN HUMAN NPH SC SCH (09:14)
[2020-06-27] MEDS: CLOPIDOGREL BISULFATE 75 MG TAB PO SCH (09:16)
[2020-06-27] MEDS: PANTOprazole 40 MG TAB PO SCH (09:16)
[2020-06-27] MEDS: SENNA 8.6 MG TAB PO SCH (09:16)
[2020-06-27] MEDS: ZINC SULFATE 220 MG CAPSULE PO SCH (09:17)
[2020-06-27] MEDS: METOPROLOL SUCC 50MG EXT REL TAB PO SCH (09:17)
[2020-06-27] MEDS: allopurinoL 300 MG TAB PO SCH (09:18)
--- NOTE | 2020-06-27 14:54 | Pharmacy Report ---
Pharmacy Glycemic Short Note 2 - Date of Service June 27, 2020 - Glycemic Short BSG Results (Last 24 hours): 06/26/20 06/26/20 06/27/20 16:45 20:14 06:16 Glucose 113 H POC Glucose 106 H 142 H 06/27/20 06/27/20 07:43 11:58 Glucose POC Glucose 103 H 155 H OUTPATIENT ANTIDIABETIC REGIMEN: * 70/30 insulin 25 units qam, 30 units qpm + ssi ASSESSMENT: 06/27: * Jacobo received 72 units of insulin yesterday with adequate glycemic control * 5 units Lantus, 40 units NPH (to cover dexamethasone), 27 units novolog * Today is patients last dose of dexamethasone. Will continue current orders for today, then back off significantly starting 06/28 AM with doses based on outpatient usage of ~ 55 units/day. 06/25 * 70 units SQ insulin administered over last 24 hrs, yet glycemic targets not me t - although BSGs better yesterday than prior day * Fasting BSG 120 on AM PRP, no corresponding Accucheck this AM. This is with 5 units Lantus on board and with 32 units NPH given yesterday AM * Post-prandial hyperglycemia remains problematic - continue to up-titrate NPH and prandial Novolog 06/24 * Fasting BSG 127-182 this AM w/ 0 Lantus on board (held by RN yesterday) but did receive 25 units NPH in the AM * BSGs did climb quickly thru the day. Post-prandial hyperglycemia worsening as the day progressed. * Will increase NPH dose to combat steroid induced hyperglycemia from AM dexamethasone. Will also increase Novolog prandial dose dose * Given the downward trend in BSGs overnight as observed earlier this admission, continue low dose Lantus in the AM (no PM dosing) 06/22 * 68 units SQ insulin administered over last 24 hrs - patient consumed 2 of 3 meals yesterday (tends to skip breakfast per gate watch of carb intake) * Dexamethasone 6mg IV daily continues * Mild hypoglycemia present on AM labs (FSB 68-69) with 15 units Lantus on board and after receiving NPH 25 units (~0.25units/kg) w/ AM dexamethasone * Unfortunately no Novolog, NPH or Lantus were administered this AM - although d examethasone IV still given. Pre-lunch hyperglycemia developed as a result. Unclear what patient was given to correct hypoglycemia this AM. Plan to give 20units NPH at noon today to address hyperglycemia that is likely to ensue. BID Lantus will be changed to once daily in the AM at a reduced dose. * Novolog will continue at "severe" stress dosing 06/21 * 37 units SQ insulin administered over last 24 hrs * Most BSGs at goal over last 24 hrs w/ the exception of HS hyperglycemia * Dexamethasone IV, broad spectrum abx and heparin gtt continue at this time. PO intake appears poor. * Current insulin orders appear appropriate to continue for the next 24 hrs, however given this patient's poor PO intake we may need to scale back insulin (NPH + Lantus) doses in the near future PLAN FOR INPATIENT GLYCEMIC CONTROL: * Hold outpatient oral diabetes medications * Basal insulin * 06/27: * NPH 40 units SQ in the AM with dexamethasone IV * Lantus 5 units Q AM * 06/28: * d/c Lantus and NPH 40 units * Start NPH SQ BID per scale: 13 units for BSG < 140 mg/dL, 17 units for BSG 140 mg/dL or more) * Bolus insulin * NovoLog per scale ACHS or Q6hrs while NPO * Goal Range: Low 110 mg/dL - High 140 mg/dL * Correction Factor: 20 mg/dL/unit * Nutritional / Prandial insulin per carb ratio of 1 unit per 3.5 grams CHO consumed * Starting 06/28: loosen carb coverage to 1 unit per 7 grams CHO (based on outpatient usage) PLAN FOR DISCHARGE: * to be determined
[2020-06-27] MEDS: DULoxetine HCL 30 MG CAP PO SCH (20:36)
[2020-06-28] MEDS: ENOXAPARIN 80 MG/0.8 ML SYR SQ SCH ×2 (05:41→17:15)
[2020-06-28 07:03] LABS: BUN Creatinine Ratio 36.5 (10-20); Calcium 9.7 mg/dl (8.5-10.1); Creatinine Clr Calc Pharmacy 53.7 ml/min; Est GFR (African American) 62.7; Est GFR (Non-African American) 54.1; Potassium 3.3 mmol/L (3.5-5.1)
[2020-06-28] MEDS: AMIODARONE 200 MG TAB PO SCH ×2 (08:49→17:17)
[2020-06-28] MEDS: PANTOprazole 40 MG TAB PO SCH (08:49)
[2020-06-28] MEDS: METOPROLOL SUCC 50MG EXT REL TAB PO SCH (08:49)
[2020-06-28] MEDS: BUMETANIDE 2 MG in SYRINGE 0 ML IV SCH ×2 (08:49→17:14)
[2020-06-28] MEDS: SUCRALFATE 1 GM/10 ML UDC PO SCH ×4 (08:50→21:38)
[2020-06-28] MEDS: ZINC SULFATE 220 MG CAPSULE PO SCH (08:50)
[2020-06-28] MEDS: ISOSORBIDE MONO EXTENDED REL 30 MG TABCR PO SCH (08:50)
[2020-06-28] MEDS: SENNA 8.6 MG TAB PO SCH (08:51)
[2020-06-28] MEDS: ASPIRIN 81 MG ECTAB PO SCH (08:51)
[2020-06-28] MEDS: DOCUSATE SODIUM 100 MG CAP PO SCH (08:51)
[2020-06-28] MEDS: CALCIUM 600MG + VIT D 400 IU TAB PO SCH (08:51)
[2020-06-28] MEDS: NYSTATIN SUSP 500,000 U/5 ML UDC PO SCH ×4 (08:51→21:38)
[2020-06-28] MEDS: allopurinoL 300 MG TAB PO SCH (08:51)
[2020-06-28] MEDS: CLOPIDOGREL BISULFATE 75 MG TAB PO SCH (08:51)
[2020-06-28] MEDS: POLYETHYLENE (MIRALAX) 17 GM PACK PO SCH (08:52)
[2020-06-28] MEDS: INSULIN HUMAN NPH SC SCH ×2 (10:07→17:16)
[2020-06-28] MEDS: INSULIN ASPART 100 UNITS/ML 3 ML PEN SC SCH ×4 (10:10→21:36)
[2020-06-28] MEDS: DULoxetine HCL 30 MG CAP PO SCH (21:38)
[2020-06-28] MEDS: POTASSIUM CHLORIDE CRTAB 20 MEQ TABCR PO SCH (21:41)
--- NOTE | 2020-06-28 22:44 | Hospitalist Progress Note ---
Date of Service June 28, 2020 Assessment & Plan (1) Acute hypoxemic respiratory failure: due to acute on chronic systolic CHF and pneumonia due to COVID-19 virus infection. patient breathing is less labored this morning, RR 15-17, laying prone stable at 40L and 80-90%, he had success with laying prone all night and intermittently during the day Continue to encourage him to self prone as much as he can, best way to prevent intubation Cont steroids, abx, supportive care for COVID-19 pneumonia. See below. Keep sats >88% discussed that he would require BIPAP if saturations drop further, he understands trying to avoid intubation, patient states he feels better than yesterday. (2) Pneumonia due to COVID-19 virus: requiring more oxygen at 40L and 80-90% Completed 10 days of dexamethasone 6 mg IV daily Completed 5-day course of Remdesivir IV with stable ALT; AST has been high but only mild. Ventolin prn. Zinc sulfate daily x 10 days. Procalcitonin elevated; could have possible bacterial pneumonia in setting of COVID-19 infection. Also he is splenectomy state and therefore another risk factor for bacterial superinfection. 7 days of Rocephin and Doxycycline IV completed on 06/25/20 Cont pulmonary toilet - Flutter valve, Mucinex, Incentive spirometry. Keep sats > 88% Self-prone as much as possible, he is more compliant with this the past two days and it is working Lovenox BID, will eventually need Coumadin Again if any worsening while on HFNC change to BIPAP. Remains full code. (3) Atrial fibrillation with RVR: New onset earlier this admission. Resolved with amiodarone infusion. Appreciate Dr Lawson's input. decreased amiodarone 200mg to BID on 06/25 continue Lovenox 1mg/kg BID to limit fluid intake, will need Coumadin eventually Continue metoprolol succinate. TSH and K/mag wnl. rate and rhythm is stable on monitor (4) Acute on chronic systolic ACC/AHA stage C congestive heart failure: Acute on chronic systolic CHF. CHF 2nd to ischemic cardiomyopathy. EF ~30% on echo done thru [facility] earlier in 2019. bumex increased to 2mg IV BID on 06/26, better diuresis on 06/26 no significant bump on 06/28 continue 2mg IV BID, check BMP in the morning, may want to back down to 1mg IV BID tomorrow Cont metoprolol succinate; holding TIMMY but resume as BP allows. Serial BMP and magnesium levels. Appreciate cardiology assistance by Dr Lawson [facility] cardiology. (5) Elevated troponin: Likely Myocardial demand ischemia in setting of COVID-19 infection, resp f ailure, rapid a.fib, etc. (6) Hyperglycemia due to type 2 diabetes mellitus: NPH daily to cover steroids. Lantus. Novolog correction & carb ratio. A1c 10.4%. Pharmacy assistance appreciated. sugars better the past 72 hours with adjusting Novolog and NPH stopping Decadron today (7) Gout: Continue allopurinol prophylaxis No flares (8) Ischemic cardiomyopathy: EF 20-30% in the past. Cont BB. Holding TIMMY due to low-normal BPs. Cont asa/plavix. Bumex 2mg IV BID for diuresis, working well (9) Hypertension: See above re: intermittenly low-normal BPs (10) Dyslipidemia: Hold atorvastatin given high AST (11) Intractable hiccups: Ongoing despite PPI + carafate Rx for GERD. give Thorazine 25mg PO x 1 on 06/26, worked well (12) Mitral regurgitation: as seen on prior echos (13) Hyponatremia: mild, will monitor (14) H/O splenectomy: noted (15) Constipation: miralax w senna improved (16) Candidiasis of mouth and esophagus: nystatin minoo 5cc qid improved (17) DVT prophylaxis: Lovenox BID prognosis guarded given his numerous medical issues and worsening O2 requirements and probable development of ARDS from COVID continue to prone as much as possible, it is working well, not tachypneic today, anticipate at least another week in the hospital Admission and Anticipated Discharge Date Admission Date: June 18, 2020 Subjective Patient reporting that he is self proning. He feels better. Has no new complaints. Review of Systems Review of Systems: All systems reviewed & are unremarkable except as noted in HPI & below Physical Exam Physical Exam: Constitutional: well developed, well nourished and comfortable; no acute distress Neck: trachea midline, no thyromegaly Respiratory: normal respiratory effort and + tachypneic; no respiratory distress, no labored breathing and no cough Auscultation: lungs clear to auscultation bilaterally Cardiovascular: RRR, no murmur, no edema Gastrointestinal (Abdomen): normal bowel sounds, soft, nontender, no hepatosplenomegaly Musculoskeletal: no cyanosis or clubbing, extremities motor strength 5/5 Skin: no rashes, warm and dry Neurologic: patellar DTR's 2+ bilat, sensation intact and PERRL, EOMI, accommodation nl, no face palsy, no dysarthria Psychiatric: A+Ox3, euthymic affect Lymphatic: no cervical or axillary lymphadenopathy Results & Data Results & Data ([facility]) Vital Signs (Past 12 Hours) Vital Signs Temp Pulse Resp BP BP Pulse Ox 06/28/20 19:33 99 H 16 95 06/28/20 16:29 92 H 22 91 06/28/20 15:54 36.6 C 92 H 109/66 90 06/28/20 15:00 92 H 26 H 90 06/28/20 13:23 37.5 C 96 H 20 116/67 93 06/28/20 11:09 95 H 22 PG Care Time/CCT Total # of Minutes Spent Total Time Spent with Patient: Total time spent is greater than 50% in coordination of care (as documented) at patient's floor/unit and/or counseling patient: Coding Level of Care Code 91485 Subseq Hosp Care Lvl 3 Diagnoses Acute hypoxemic respiratory failure J96.01 Pneumonia due to COVID-19 virus U07.1; J12.89 Atrial fibrillation with RVR I48.91 Acute on chronic systolic ACC/AHA stage C congestive heart failure I50.23 Elevated troponin R77.8 Hyperglycemia due to type 2 diabetes mellitus E11.65 Gout M10.9 Ischemic cardiomyopathy I25.5 Hypertension I10 Dyslipidemia E78.5 Intractable hiccups R06.6 Mitral regurgitation I34.0 Hyponatremia E87.1 H/O splenectomy Z90.81 Constipation K59.00 Candidiasis of mouth and esophagus B37.81; B37.0 DVT prophylaxis Z29.9 Time Spent (min) 35
[2020-06-29] MEDS: ACETAMINOPHEN 325 MG TAB PO PRN (00:15)
[2020-06-29] MEDS: ENOXAPARIN 80 MG/0.8 ML SYR SQ SCH ×2 (05:30→17:32)
[2020-06-29] MEDS: allopurinoL 300 MG TAB PO SCH (10:21)
[2020-06-29] MEDS: POLYETHYLENE (MIRALAX) 17 GM PACK PO SCH (10:22)
[2020-06-29] MEDS: PANTOprazole 40 MG TAB PO SCH (10:23)
[2020-06-29] MEDS: SENNA 8.6 MG TAB PO SCH (10:23)
[2020-06-29] MEDS: SUCRALFATE 1 GM/10 ML UDC PO SCH ×2 (10:24→12:42)
[2020-06-29] MEDS: CLOPIDOGREL BISULFATE 75 MG TAB PO SCH (10:24)
[2020-06-29] MEDS: DOCUSATE SODIUM 100 MG CAP PO SCH (10:24)
[2020-06-29] MEDS: ISOSORBIDE MONO EXTENDED REL 30 MG TABCR PO SCH (10:24)
[2020-06-29] MEDS: AMIODARONE 200 MG TAB PO SCH ×2 (10:24→17:32)
[2020-06-29] MEDS: CALCIUM 600MG + VIT D 400 IU TAB PO SCH (10:24)
[2020-06-29] MEDS: METOPROLOL SUCC 50MG EXT REL TAB PO SCH (10:25)
[2020-06-29] MEDS: ASPIRIN 81 MG ECTAB PO SCH (10:25)
[2020-06-29] MEDS: NYSTATIN SUSP 500,000 U/5 ML UDC PO SCH ×2 (10:25→12:41)
[2020-06-29] MEDS: ZINC SULFATE 220 MG CAPSULE PO SCH (10:25)
[2020-06-29] MEDS: INSULIN HUMAN NPH SC SCH (10:27)
[2020-06-29] MEDS: INSULIN ASPART 100 UNITS/ML 3 ML PEN SC SCH ×4 (10:27→21:16)
[2020-06-29] MEDS: POTASSIUM CHLORIDE CRTAB 20 MEQ TABCR PO SCH ×3 (10:30→21:16)
[2020-06-29] MEDS: BUMETANIDE 2 MG in SYRINGE 0 ML IV SCH ×2 (10:31→17:31)
--- NOTE | 2020-06-29 11:06 | Pharmacy Report ---
Pharmacy Glycemic Short Note 2 - Date of Service June 29, 2020 - Glycemic Short BSG Results (Last 24 hours): 06/28/20 06/28/20 06/28/20 12:02 16:36 20:22 Glucose POC Glucose 140 H 121 H 173 H 06/29/20 06/29/20 06/29/20 07:45 07:51 09:28 Glucose Cancelled Cancelled POC Glucose 89 OUTPATIENT ANTIDIABETIC REGIMEN: * 70/30 insulin 25 units qam, 30 units qpm + ssi ASSESSMENT: 06/29 * BSG's ranged 80-173 mg/dL yesterday after significant adjustment due to steroids being stopped after dose on 06/27 * AM fasting BSG today below goal - will decrease PM NPH * Anticipate increased insulin sensitivity now that dexamethasone has not been administered for ~48 hours therefore no other adjustments needed 06/27: * Jacobo received 72 units of insulin yesterday with adequate glycemic control * 5 units Lantus, 40 units NPH (to cover dexamethasone), 27 units novolog * Today is patients last dose of dexamethasone. Will continue current orders for today, then back off significantly starting 06/28 AM with doses based on outpatient usage of ~ 55 units/day. 06/25 * 70 units SQ insulin administered over last 24 hrs, yet glycemic targets not met - although BSGs better yesterday than prior day * Fasting BSG 120 on AM PRP, no corresponding Accucheck this AM. This is with 5 units Lantus on board and with 32 units NPH given yesterday AM * Post-prandial hyperglycemia remains problematic - continue to up-titrate NPH and prandial Novolog 06/24 * Fasting BSG 127-182 this AM w/ 0 Lantus on board (held by RN yesterday) but did receive 25 units NPH in the AM * BSGs did climb quickly thru the day. Post-prandial hyperglycemia worsening as the day progressed. * Will increase NPH dose to combat steroid induced hyperglycemia from AM dexamethasone. Will also increase Novolog prandial dose dose * Given the downward trend in BSGs overnight as observed earlier this admission, continue low dose Lantus in the AM (no PM dosing) 06/22 * 68 units SQ insulin administered over last 24 hrs - patient consumed 2 of 3 meals yesterday (tends to skip breakfast per etl tester of carb intake) * Dexamethasone 6mg IV daily continues * Mild hypoglycemia present on AM labs (FSB 68-69) with 15 units Lantus on board and after receiving NPH 25 units (~0.25units/kg) w/ AM dexamethasone * Unfortunately no Novolog, NPH or Lantus were administered this AM - although dexamethasone IV still given. Pre-lunch hyperglycemia developed as a result. Unclear what patient was given to correct hypoglycemia this AM. Plan to give 20units NPH at noon today to address hyperglycemia that is likely to ensue. BID Lantus will be changed to once daily in the AM at a reduced dose. * Novolog will continue at "severe" stress dosing 06/21 * 37 units SQ insulin administered over last 24 hrs * Most BSGs at goal over last 24 hrs w/ the exception of HS hyperglycemia * Dexamethasone IV, broad spectrum abx and heparin gtt continue at this time. PO intake appears poor. * Current insulin orders appear appropriate to continue for the next 24 hrs, however given this patient's poor PO intake we may need to scale back insulin (NPH + Lantus) doses in the near future PLAN FOR INPATIENT GLYCEMIC CONTROL: * Basal insulin * NPH BIDM: 13-17 units in AM and 10-13 units in PM depending on BSG * Bolus insulin * NovoLog per scale ACHS or Q6hrs while NPO * Goal Range: Low 110 mg/dL - High 140 mg/dL * Correction Factor: 20 mg/dL/unit * Nutritional / Prandial insulin per carb ratio of 1 unit per 7 grams CHO consumed PLAN FOR DISCHARGE: * to be determined
[2020-06-29 11:24] LABS: BUN Creatinine Ratio 37.2 (10-20); Calcium 9.5 mg/dl (8.5-10.1); Creatinine Clr Calc Pharmacy 58.8 ml/min; Est GFR (Non-African American) 60.4; Potassium 3.5 mmol/L (3.5-5.1)
--- NOTE | 2020-06-29 16:24 | Hospitalist Progress Note ---
Date of Service June 29, 2020 Assessment & Plan (1) Pneumonia due to COVID-19 virus: Completed 10 days of dexamethasone 6 mg IV daily. Completed 5-day course of Remdesivir IV with stable ALT; AST has been high but only mild. - 7 days of Rocephin and doxycycline IV - completed on 06/25/20. - Requiring stable oxygen at 40L and 100%. - Ventolin PRN - Cont pulmonary toilet - Flutter valve, Mucinex, Incentive spirometry. - Self-prone as much as possible, he is more compliant with this the past two days and it is working (2) Atrial fibrillation with RVR: New onset earlier this admission. Resolved with amiodarone infusion. - Appreciate Dr Lawson's input. - Continue amiodarone 200mg PO BID - Continue Lovenox 1mg/kg BID - Continue metoprolol succinate 50 mg PO daily (3) Acute on chronic systolic ACC/AHA stage C congestive heart failure: Acute on chronic systolic CHF. CHF 2nd to ischemic cardiomyopathy. EF ~30% on echo done thru snf system earlier in 2019. - Cont metoprolol succinate; holding TIMMY but resume as BP allows. - Continue Bumex 2mg IV BID - Trend Cr - Stable on 06/29 at 1.15 (4) Hyperglycemia due to type 2 diabetes mellitus: A1c was 10.4% this admission. - Glycemic pharmacist following -> Working on sliding scale insulin along with NPH so that regimen can be followed home (5) Gout: No flares. - Continue allopurinol prophylaxis (6) Hypertension: BP stable at 130/70 today. - Continue above meds (7) Dyslipidemia: - Hold atorvastatin given high AST (8) Mitral regurgitation: Echo from 08/2019 shows mitral regurg as moderate, posteriorly-directed MR. - No acute needs (9) H/O splenectomy: Noted (10) DVT prophylaxis: Lovenox BID Admission and Anticipated Discharge Date Admission Date: June 18, 2020 Subjective Feeling stable today. No major change overall. Shortness of breath sometimes, but overall not too bad if lying still. Reports no fevers/chills, chest pain, abdominal pain, nausea, or vomiting. Physical Exam Constitutional: WD/WN, vitals as above Eyes: EOM intact bilaterally; no conjunctival abnormality ENMT: external ear and nose normal, oropharynx normal Neck: trachea midline, no thyromegaly normal visual inspection Respiratory: normal respiratory effort, lungs clear to auscultation no respiratory distress Cardiovascular: RRR, no murmur, no edema Gastrointestinal (Abdomen): Inspection/Auscultation: abdomen normal to inspection; abdomen not distended Musculoskeletal: no cyanosis or clubbing, extremities motor strength 5/5 Skin: no rashes, warm and dry Neurologic: moves all extremities and awake Psychiatric: Orientation: alert, oriented to person and cooperative Results & Data Results & Data ([facility]) Vital Signs (Past 12 Hours) Vital Signs Temp Pulse Resp BP Pulse Ox 06/29/20 15:48 96 H 20 94 06/29/20 15:06 37.0 C 97 H 20 127/71 93 06/29/20 11:32 99 H 28 H 94 06/29/20 10:48 37.0 C 92 H 20 105/74 96 06/29/20 08:06 93 H 24 94 06/29/20 07:03 36.7 C 93 H 16 117/77 90 PG Care Time/CCT Total # of Minutes Spent Total Time Spent with Patient: Total time spent is greater than 50% in coordination of care (as documented) at patient's floor/unit and/or counseling patient: Coding Level of Care Code 91233 Subseq Hosp Care Lvl 2 Diagnoses Pneumonia due to COVID-19 virus U07.1; J12.89 Atrial fibrillation with RVR I48.91 Acute on chronic systolic ACC/AHA stage C congestive heart failure I50.23 Hyperglycemia due to type 2 diabetes mellitus E11.65 Gout M10.9 Hypertension I10 Dyslipidemia E78.5 Mitral regurgitation I34.0 H/O splenectomy Z90.81 DVT prophylaxis Z29.9
[2020-06-29] MEDS ORDERED: INSULIN HUMAN NPH SC SCH (16:30)
[2020-06-29] MEDS: DULoxetine HCL 30 MG CAP PO SCH (21:16)
[2020-06-30] MEDS: ACETAMINOPHEN 325 MG TAB PO PRN (00:01)
[2020-06-30] MEDS: ENOXAPARIN 80 MG/0.8 ML SYR SQ SCH ×2 (05:52→17:38)
[2020-06-30 07:22] LABS: Basophils # (auto) 0.01 K/uL (0-0.2); Basophils % (auto) 0.1 %; Eosinophils # (auto) 0.02 K/uL (0-0.5); Eosinophils % (auto) 0.2 %; Hematocrit (blood only) 44.1 % (42-52); Hemoglobin 14.3 g/dL (14.0-18.0); Immature Granulocytes # (auto) 0.04 K/uL (0.00-0.02); Immature Granulocytes % (auto) 0.3 %; Mean Corpuscular Hemoglobin 27.2 pg (25-34); Mean Corpuscular Hgb Conc 32.4 g/dL (32-36); Mean Platelet Volume 10.7 fL (7.4-10.4); Monocytes # (auto) 0.32 K/uL (0.11-0.59); Monocytes % (auto) 2.5 %; Neutrophils # (auto) 11.66 K/uL (1.4-6.5); Neutrophils % (auto) 92.9 %; Platelet Count 270 K/uL (130-400); RDW Coefficient of Variation 15.6 % (11.5-14.5); Red Blood Count 5.25 M/uL (4.7-6.1); White Blood Count 12.55 K/uL (4.8-10.8)
[2020-06-30] MEDS ORDERED: INSULIN HUMAN NPH SC SCH (07:30)
[2020-06-30 08:00] LABS: BUN Creatinine Ratio 33.3 (10-20); Calcium 9.9 mg/dl (8.5-10.1); Est GFR (African American) 64.6; Est GFR (Non-African American) 55.7
[2020-06-30] MEDS ORDERED: INSULIN HUMAN NPH SC ONE (08:30)
[2020-06-30] MEDS: PANTOprazole 40 MG TAB PO SCH (09:16)
[2020-06-30] MEDS: CALCIUM 600MG + VIT D 400 IU TAB PO SCH (09:17)
[2020-06-30] MEDS: POLYETHYLENE (MIRALAX) 17 GM PACK PO SCH (09:17)
[2020-06-30] MEDS: METOPROLOL SUCC 50MG EXT REL TAB PO SCH (09:17)
[2020-06-30] MEDS: AMIODARONE 200 MG TAB PO SCH ×2 (09:17→17:38)
[2020-06-30] MEDS: SENNA 8.6 MG TAB PO SCH (09:18)
[2020-06-30] MEDS: allopurinoL 300 MG TAB PO SCH (09:18)
[2020-06-30] MEDS: CLOPIDOGREL BISULFATE 75 MG TAB PO SCH (09:18)
[2020-06-30] MEDS: ASPIRIN 81 MG ECTAB PO SCH (09:18)
[2020-06-30] MEDS: ISOSORBIDE MONO EXTENDED REL 30 MG TABCR PO SCH (09:20)
[2020-06-30] MEDS: DOCUSATE SODIUM 100 MG CAP PO SCH (09:20)
[2020-06-30] MEDS: INSULIN ASPART 100 UNITS/ML 3 ML PEN SC SCH ×4 (09:21→21:14)
[2020-06-30] MEDS: POTASSIUM CHLORIDE CRTAB 20 MEQ TABCR PO SCH ×3 (09:27→21:38)
[2020-06-30] MEDS: BUMETANIDE 2 MG in SYRINGE 0 ML IV SCH (09:45)
--- NOTE | 2020-06-30 11:11 | Pharmacy Report ---
Pharmacy Glycemic Short Note 2 - Date of Service June 30, 2020 - Glycemic Short BSG Results (Last 24 hours): 06/29/20 06/29/20 06/29/20 10:43 11:36 16:20 Glucose 187 H POC Glucose 289 H 313 H* 06/29/20 06/30/20 06/30/20 20:11 06:04 07:22 Glucose 55 L POC Glucose 172 H 94 OUTPATIENT ANTIDIABETIC REGIMEN: * 70/30 insulin 25 units qam, 30 units qpm + ssi ASSESSMENT: 06/30 * Significant elevations in lunch and dinner BSG's yesterday. No CHO intake charted since 06/28 at lunch, but insulin doses administered at lunch and dinner yesterday suggest CHO coverage / intake. Suspect etiology of hyperglycmemia yesterday was both missed Novolog at breakfast (with po intake) and potentially too loose a CHO ratio * Severe hypoglycemia this AM to 55 mg/dL - suspect etiology of hypoglycemia this AM is due to NPH at dinner yesterday. Administered dose was higher than ordered dose. * Will therefore schedule NPH only in AM for now to help with post-prandial elevations during the day and also to help prevent AM hypoglycemia. Will tighten CHO ratio 06/29 * BSG's ranged 80-173 mg/dL yesterday after significant adjustment due to steroids being stopped after dose on 06/27 * AM fasting BSG today below goal - will decrease PM NPH * Anticipate increased insulin sensitivity now that dexamethasone has not been administered for ~48 hours therefore no other adjustments needed 06/27: * Jacobo received 72 units of insulin yesterday with adequate glycemic control * 5 units Lantus, 40 units NPH (to cover dexamethasone), 27 units novolog * Today is patients last dose of dexamethasone. Will continue current orders for today, then back off significantly starting 06/28 AM with doses based on outpatient usage of ~ 55 units/day. 06/25 * 70 units SQ insulin administered over last 24 hrs, yet glycemic targets not met - although BSGs better yesterday than prior day * Fasting BSG 120 on AM PRP, no corresponding Accucheck this AM. This is with 5 units Lantus on board and with 32 units NPH given yesterday AM * Post-prandial hyperglycemia remains problematic - continue to up-titrate NPH and prandial Novolog 06/24 * Fasting BSG 127-182 this AM w/ 0 Lantus on board (held by RN yesterday) but did receive 25 units NPH in the AM * BSGs did climb quickly thru the day. Post-prandial hyperglycemia worsening as the day progressed. * Will increase NPH dose to combat steroid induced hyperglycemia from AM de xamethasone. Will also increase Novolog prandial dose dose * Given the downward trend in BSGs overnight as observed earlier this admission, continue low dose Lantus in the AM (no PM dosing) 06/22 * 68 units SQ insulin administered over last 24 hrs - patient consumed 2 of 3 meals yesterday (tends to skip breakfast per gravedigger of carb intake) * Dexamethasone 6mg IV daily continues * Mild hypoglycemia present on AM labs (FSB 68-69) with 15 units Lantus on board and after receiving NPH 25 units (~0.25units/kg) w/ AM dexamethasone * Unfortunately no Novolog, NPH or Lantus were administered this AM - although dexamethasone IV still given. Pre-lunch hyperglycemia developed as a result. Unclear what patient was given to correct hypoglycemia this AM. Plan to give 20units NPH at noon today to address hyperglycemia that is likely to ensue. BID Lantus will be changed to once daily in the AM at a reduced dose. * Novolog will continue at "severe" stress dosing 06/21 * 37 units SQ insulin administered over last 24 hrs * Most BSGs at goal over last 24 hrs w/ the exception of HS hyperglycemia * Dexamethasone IV, broad spectrum abx and heparin gtt continue at this time. PO intake appears poor. * Current insulin orders appear appropriate to continue for the next 24 hrs, however given this patient's poor PO intake we may need to scale back insulin (NPH + Lantus) doses in the near future PLAN FOR INPATIENT GLYCEMIC CONTROL: * Basal insulin * Increase NPH with breakfast - 20 units * Discontinue NPH with dinner * Bolus insulin * NovoLog per scale ACHS or Q6hrs while NPO * Goal Range: Low 110 mg/dL - High 140 mg/dL * Correction Factor: 20 mg/dL/unit * Tighten Nutritional / Prandial insulin per carb ratio of 1 unit per 6 grams CHO consumed PLAN FOR DISCHARGE: * to be determined
--- NOTE | 2020-06-30 11:56 | Hospitalist Progress Note ---
Date of Service June 30, 2020 Assessment & Plan (1) Pneumonia due to COVID-19 virus: Completed 10 days of dexamethasone 6 mg IV daily. Completed 5-day course of Remdesivir IV with stable ALT; AST has been high but only mild. - 7 days of Rocephin and doxycycline IV - completed on 06/25/20. - Requiring stable oxygen at 40L and 100%. - Ventolin PRN - Cont pulmonary toilet - Flutter valve, Mucinex, Incentive spirometry. - Self-prone as much as possible, he is more compliant with this the past two days and it is working. He is doing better today. O2 levels improved and not self-proning at present. (2) Numbness of left foot: Noted the morning of 06/30. Slight light-touch deficit, but normal on dorsal foot, ankle, taylor, etc. No motor deficits and no UE or facial deficits. Do NOT think this is CVA. More likely a diabetic or maybe a small nerve compression from self-proning. - Monitor (3) Atrial fibrillation with RVR: New onset earlier this admission. Resolved with amiodarone infusion. - Appreciate Dr Lawson's input. - Continue amiodarone 200mg PO BID - Continue Lovenox 1mg/kg SQ BID - Continue metoprolol succinate 50 mg PO daily (4) Acute on chronic systolic ACC/AHA stage C congestive heart failure: Acute on chronic systolic CHF. CHF 2nd to ischemic cardiomyopathy. EF ~30% on echo done thru skilled nursing system earlier in 2019. - Cont metoprolol succinate; holding TIMMY but resume as BP allows. - Trend Cr - Stable on 06/29 at 1.25 - Lowered Bumex 2mg IV to daily (from BID) on 06/30 (5) Hyperglycemia due to type 2 diabetes mellitus: A1c was 10.4% this admission. - Glycemic pharmacist following -> Working on sliding scale insulin along with NPH so that regimen can be followed at skilled nursing - Variable today. Low of 55 this morning, then higher. Will likely lower long- acting, but increase meal-time. (6) Gout: No flares. - Continue allopurinol prophylaxis (7) Hypertension: BP stable at 130/75 today. - Continue above meds (8) Dyslipidemia: - Restarted atorvastatin on 06/30 (had been held for high AST which normalized) (9) Mitral regurgitation: Echo from 08/2019 shows mitral regurg as moderate, posteriorly-directed MR. 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 In a "stocking" distribution. On 35L 60% FiO2 and not proning but with good O2 sat. Physical Exam Constitutional: WD/WN, vitals as above Eyes: EOM intact bilaterally; no conjunctival abnormality ENMT: external ear and nose normal, oropharynx normal Neck: trachea midline, no thyromegaly normal visual inspection Respiratory: normal respiratory effort, lungs clear to auscultation no respiratory distress Cardiovascular: RRR, no murmur, no edema Gastrointestinal (Abdomen): Inspection/Auscultation: abdomen normal to inspection; abdomen not distended Musculoskeletal: no cyanosis or clubbing, extremities motor strength 5/5 Skin: no rashes, warm and dry Neurologic: moves all extremities and awake Speech / Cognition: normal speech Motor/Sensory: + sensory deficit (Mild light touch deficit on base of foot; normal on dorsal aspect and ankle); normal movement Psychiatric: Orientation: alert, oriented to person and cooperative Results & Data Results & Data ([facility]) Vital Signs (Past 12 Hours) Vital Signs Temp Pulse Pulse Resp BP Pulse Ox Pulse Ox 06/30/20 11:39 36.7 C 90 32 H 128/74 95 06/30/20 11:03 93 H 20 93 06/30/20 08:00 95 06/30/20 07:51 94 H 17 95 06/30/20 07:40 87 06/30/20 07:24 36.5 C 90 18 119/77 96 06/30/20 03:42 36.8 C 88 22 140/84 93 06/30/20 03:15 88 28 H 92 PG Care Time/CCT Total # of Minutes Spent Total Time Spent with Patient: Total time spent is greater than 50% in coordination of care (as documented) at patient's floor/unit and/or counseling patient: Coding Level of Care Code 52503 Subseq Hosp Care Lvl 3 Diagnoses Pneumonia due to COVID-19 virus U07.1; J12.89 Numbness of left foot R20.8 Atrial fibrillation with RVR I48.91 Acute on chronic systolic ACC/AHA stage C congestive heart failure I50.23 Hyperglycemia due to type 2 diabetes mellitus E11.65 Gout M10.9 Hypertension I10 Dyslipidemia E78.5 Mitral regurgitation I34.0 H/O splenectomy Z90.81 DVT prophylaxis Z29.9
[2020-06-30] MEDS: ATORVASTATIN 10 MG TAB PO SCH (21:38)
[2020-06-30] MEDS: DULoxetine HCL 30 MG CAP PO SCH (21:38)
[2020-07-01] MEDS: ENOXAPARIN 80 MG/0.8 ML SYR SQ SCH ×2 (05:35→17:46)
[2020-07-01 06:34] LABS: Hematocrit (blood only) 39.4 % (42-52); Mean Corpuscular Hemoglobin 27.4 pg (25-34); Mean Corpuscular Volume 83.1 fL (80-100); Mean Platelet Volume 10.4 fL (7.4-10.4); Platelet Count 272 K/uL (130-400); RDW Coefficient of Variation 15.7 % (11.5-14.5); RDW Standard Deviation 48.1 fL (36.4-46.3); Red Blood Count 4.74 M/uL (4.7-6.1); White Blood Count 8.67 K/uL (4.8-10.8)
[2020-07-01 07:11] LABS: Albumin Level 1.9 gm/dl (3.4-5.0); BUN Creatinine Ratio 38.1 (10-20); Calcium 9.1 mg/dl (8.5-10.1); Creatinine Clr Calc Pharmacy 62.5 ml/min; Est GFR (African American) 84.8; Est GFR (Non-African American) 73.2; Magnesium 2.4 mg/dl (1.8-2.4); Potassium 4.4 mmol/L (3.5-5.1)
[2020-07-01 07:15] LABS: Albumin Globulin Ratio 0.3 (0.9-2); Bilirubin,Total 0.5 mg/dl (0.2-1); Total Protein 7.9 gm/dl (6.4-8.2)
[2020-07-01] MEDS ORDERED: INSULIN HUMAN NPH SC ONE (07:30)
[2020-07-01] MEDS ORDERED: INSULIN ASPART 100 UNITS/ML 3 ML PEN SC SCH ×3 (07:30→11:30)
[2020-07-01] MEDS: BUMETANIDE 2 MG in SYRINGE 0 ML IV SCH (08:07)
[2020-07-01] MEDS: DOCUSATE SODIUM 100 MG CAP PO SCH (08:08)
[2020-07-01] MEDS: ISOSORBIDE MONO EXTENDED REL 30 MG TABCR PO SCH (08:09)
[2020-07-01] MEDS: AMIODARONE 200 MG TAB PO SCH ×2 (08:10→17:48)
[2020-07-01] MEDS: METOPROLOL SUCC 50MG EXT REL TAB PO SCH (08:10)
[2020-07-01] MEDS: ASPIRIN 81 MG ECTAB PO SCH (08:10)
[2020-07-01] MEDS: SENNA 8.6 MG TAB PO SCH (08:11)
[2020-07-01] MEDS: CLOPIDOGREL BISULFATE 75 MG TAB PO SCH (08:11)
[2020-07-01] MEDS: allopurinoL 300 MG TAB PO SCH (08:11)
[2020-07-01] MEDS: CALCIUM 600MG + VIT D 400 IU TAB PO SCH (08:11)
[2020-07-01] MEDS: PANTOprazole 40 MG TAB PO SCH (08:12)
[2020-07-01] MEDS: POTASSIUM CHLORIDE CRTAB 20 MEQ TABCR PO SCH ×3 (08:12→21:03)
[2020-07-01] MEDS: POLYETHYLENE (MIRALAX) 17 GM PACK PO SCH (08:26)
--- NOTE | 2020-07-01 11:45 | Pharmacy Report ---
Pharmacy Glycemic Short Note 2 - Date of Service July 01, 2020 - Glycemic Short BSG Results (Last 24 hours): 06/30/20 06/30/20 07/01/20 16:06 21:02 05:31 Glucose 64 L POC Glucose 185 H 88 07/01/20 07/01/20 07:24 11:20 Glucose POC Glucose 81 219 H OUTPATIENT ANTIDIABETIC REGIMEN: * 70/30 insulin 25 units qam, 30 units qpm + ssi ASSESSMENT: 07/01 * AM fasting random BSG this AM with slightly hypoglycemia to 64 mg/dL despite 33% reduction in NPH yesterday *and* administering full dose in AM (rather than split with breakfast and dinner). OK to continue NPH as this is a component of the patient's outpatient regimen. However, will reduce dose further * Post-prandial elevations noted at lunch and dinner yesterday, likely 2nd insufficient CHO ratio at checks prior. Will tighten CHO ratio at breakfast and lunch only 06/30 * Significant elevations in lunch and dinner BSG's yesterday. No CHO intake charted since 06/28 at lunch, but insulin doses administered at lunch and dinner yesterday suggest CHO coverage / intake. Suspect etiology of hyperglycmemia yesterday was both missed Novolog at breakfast (with po intake) and potentially too loose a CHO ratio * Severe hypoglycemia this AM to 55 mg/dL - suspect etiology of hypoglycemia this AM is due to NPH at dinner yesterday. Administered dose was higher than ordered dose. * Will therefore schedule NPH only in AM for now to help with post-prandial elevations during the day and also to help prevent AM hypoglycemia. Will tighten CHO ratio 06/29 * BSG's ranged 80-173 mg/dL yesterday after significant adjustment due to stero ids being stopped after dose on 06/27 * AM fasting BSG today below goal - will decrease PM NPH * Anticipate increased insulin sensitivity now that dexamethasone has not been administered for ~48 hours therefore no other adjustments needed PLAN FOR INPATIENT GLYCEMIC CONTROL: * Basal insulin * Decrease NPH with breakfast - 14 units * Bolus insulin * NovoLog per scale ACHS or Q6hrs while NPO * Goal Range: Low 110 mg/dL - High 140 mg/dL * Correction Factor: 20 mg/dL/unit * Tighten Nutritional / Prandial insulin at breakast and lunch only: 5 g CHO/unit. Other checks all remain 6 g CHO/unit PLAN FOR DISCHARGE: * to be determined
[2020-07-01] MEDS: INSULIN ASPART 100 UNITS/ML 3 ML PEN SC SCH ×4 (13:41→20:59)
--- NOTE | 2020-07-01 14:24 | Hospitalist Progress Note ---
Date of Service July 01, 2020 Assessment & Plan (1) Pneumonia due to COVID-19 virus: Completed 10 days of dexamethasone 6 mg IV daily. Completed 5-day course of Remdesivir IV with stable ALT; AST has been high but only mild. - 7 days of Rocephin and doxycycline IV - completed on 06/25/20. - Requiring stable oxygen at 40L and 100%. - Ventolin PRN - Cont pulmonary toilet - Flutter valve, Mucinex, incentive spirometry. - Improving today. Less shortness of breath. Low O2 need. Down to 4L NC. Will work with PT/OT. (2) Numbness of left foot: Noted the morning of 06/30. Slight light-touch deficit, but normal on dorsal foot, ankle, taylor, etc. No motor deficits and no UE or facial deficits. Do NOT think this is CVA. More likely a diabetic or maybe a small nerve compression from self-proning. - Monitor -> Resolved today. Likely peripheral nerve compression or DM. No follow up needed. (3) Atrial fibrillation with RVR: New onset earlier this admission. Resolved with amiodarone infusion. - Appreciate Dr Lawson's input. - Continue amiodarone 200mg PO BID - Continue Lovenox 1mg/kg SQ BID -> Will hold off for now on warfarin. Will discuss with Dr. Lawson regarding if this was a one-time issue with Covid if anticoagulation is needed. - Continue metoprolol succinate 50 mg PO daily (4) Acute on chronic systolic ACC/AHA stage C congestive heart failure: Acute on chronic systolic CHF. CHF 2nd to ischemic cardiomyopathy. EF ~30% on echo done thru long-term system earlier in 2019. - Cont metoprolol succinate; holding TIMMY but resume as BP allows. - Trend Cr - Stable on 06/29 at 1.25 - Lowered Bumex 2mg IV to daily (from BID) on 06/30 (5) Hyperglycemia due to type 2 diabetes mellitus: A1c was 10.4% this admission. - Glycemic pharmacist following -> Working on sliding scale insulin along with NPH so that regimen can be followed at long-term - Variable today. Low of 65 this morning, then higher. Will likely lower long- acting, but increase meal-time. (6) Gout: No flares. - Continue allopurinol prophylaxis (7) Hypertension: BP stable at 120/80 today. - Continue above meds (8) Dyslipidemia: - Restarted atorvastatin on 06/30 (had been held for high AST which normalized) (9) Mitral regurgitation: Echo from 08/2019 shows mitral regurg as moderate, posteriorly-directed MR. 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 Reports no fevers/chills, chest pain, shortness of breath, abdominal pain, nausea, or vomiting. Physical Exam Constitutional: WD/WN, vitals as above Eyes: EOM intact bilaterally; no conjunctival abnormality ENMT: external ear and nose normal, oropharynx normal Neck: trachea midline, no thyromegaly normal visual inspection Respiratory: normal respiratory effort, lungs clear to auscultation no respiratory distress Cardiovascular: RRR, no murmur, no edema Gastrointestinal (Abdomen): Inspection/Auscultation: abdomen normal to inspection; abdomen not distended Musculoskeletal: no cyanosis or clubbing, extremities motor strength 5/5 Skin: no rashes, warm and dry Neurologic: moves all extremities and awake Speech / Cognition: normal speech Motor/Sensory: + sensory deficit (Mild light touch deficit on base of foot; normal on dorsal aspect and ankle); normal movement Psychiatric: Orientation: alert, oriented to person and cooperative Results & Data Results & Data ([facility]) Vital Signs (Past 12 Hours) Vital Signs Temp Pulse Pulse Resp BP BP Pulse Ox 07/01/20 11:22 36.4 C L 88 18 119/81 98 07/01/20 08:00 78 07/01/20 07:47 07/01/20 07:23 36.5 C 80 30 H 117/74 95 07/01/20 03:26 36.9 C 81 29 H 131/83 96 Pulse Ox 07/01/20 11:22 07/01/20 08:00 07/01/20 07:47 94 07/01/20 07:23 07/01/20 03:26 PG Care Time/CCT Total # of Minutes Spent Total Time Spent with Patient: Total time spent is greater than 50% in coordination of care (as documented) at patient's floor/unit and/or counseling patient: Coding Level of Care Code 06512 Subseq Hosp Care Lvl 2 Diagnoses Pneumonia due to COVID-19 virus U07.1; J12.89 Numbness of left foot R20.8 Atrial fibrillation with RVR I48.91 Acute on chronic systolic ACC/AHA stage C congestive heart failure I50.23 Hyperglycemia due to type 2 diabetes mellitus E11.65 Gout M10.9 Hypertension I10 Dyslipidemia E78.5 Mitral regurgitation I34.0 H/O splenectomy Z90.81 DVT prophylaxis Z29.9
[2020-07-01] MEDS: DULoxetine HCL 30 MG CAP PO SCH (21:02)
[2020-07-01] MEDS: ATORVASTATIN 10 MG TAB PO SCH (21:03)
[2020-07-02] MEDS: ENOXAPARIN 80 MG/0.8 ML SYR SQ SCH ×2 (06:18→18:33)
[2020-07-02] MEDS: ASPIRIN 81 MG ECTAB PO SCH (09:25)
[2020-07-02] MEDS: CALCIUM 600MG + VIT D 400 IU TAB PO SCH (09:25)
[2020-07-02] MEDS: POTASSIUM CHLORIDE CRTAB 20 MEQ TABCR PO SCH ×3 (09:25→20:10)
[2020-07-02] MEDS: BUMETANIDE 2 MG in SYRINGE 0 ML IV SCH (09:25)
[2020-07-02] MEDS: ISOSORBIDE MONO EXTENDED REL 30 MG TABCR PO SCH (09:25)
[2020-07-02] MEDS: AMIODARONE 200 MG TAB PO SCH ×2 (09:25→18:12)
[2020-07-02] MEDS: POLYETHYLENE (MIRALAX) 17 GM PACK PO SCH (09:25)
[2020-07-02] MEDS: DOCUSATE SODIUM 100 MG CAP PO SCH (09:25)
[2020-07-02] MEDS: PANTOprazole 40 MG TAB PO SCH (09:26)
[2020-07-02] MEDS: SENNA 8.6 MG TAB PO SCH (09:26)
[2020-07-02] MEDS: METOPROLOL SUCC 50MG EXT REL TAB PO SCH (09:26)
[2020-07-02] MEDS: CLOPIDOGREL BISULFATE 75 MG TAB PO SCH (09:26)
[2020-07-02] MEDS: allopurinoL 300 MG TAB PO SCH (09:27)
[2020-07-02] MEDS: INSULIN ASPART 100 UNITS/ML 3 ML PEN SC SCH ×4 (09:32→21:08)
[2020-07-02] MEDS: INSULIN HUMAN NPH SC SCH (09:34)
--- NOTE | 2020-07-02 12:13 | Pharmacy Report ---
Pharmacy Glycemic Short Note 2 - Date of Service July 02, 2020 - Glycemic Short BSG Results (Last 24 hours): 07/01/20 07/01/20 07/02/20 16:26 20:55 07:16 POC Glucose 202 H 170 H 131 H 07/02/20 11:19 POC Glucose 237 H OUTPATIENT ANTIDIABETIC REGIMEN: * 70/30 insulin - 25 units qam, 30 units qpm * Regular insulin, sliding scale ASSESSMENT: 07/02 * AM fasting BSG in goal range - no change to NPH * Seems like CHO coverage is required in a far tighter degree in the AM. Also seems like more correction is needed in the AM and then trends down. Will have multiple Novolog orders, with time-of-day specific parameters to address both lows and highs in BSG's 07/01 * AM fasting random BSG this AM with slightly hypoglycemia to 64 mg/dL despite 33% reduction in NPH yesterday *and* administering full dose in AM (rather than split with breakfast and dinner). OK to continue NPH as this is a component of the patient's outpatient regimen. However, will reduce dose further * Post-prandial elevations noted at lunch and dinner yesterday, likely 2nd insufficient CHO ratio at checks prior. Will tighten CHO ratio at breakfast and lunch only 06/30 * Significant elevations in lunch and dinner BSG's yesterday. No CHO intake charted since 06/28 at lunch, but insulin doses administered at lunch and dinner yesterday suggest CHO coverage / intake. Suspect etiology of hyperglycmemia yesterday was both missed Novolog at breakfast (with po intake) and potentially too loose a CHO ratio * Severe hypoglycemia this AM to 55 mg/dL - suspect etiology of hypoglycemia this AM is due to NPH at dinner yesterday. Administered dose was higher than ordered dose. * Will therefore schedule NPH only in AM for now to help with post-prandial elevations during the day and also to help prevent AM hypoglycemia. Will tighten CHO ratio PLAN FOR INPATIENT GLYCEMIC CONTROL: * Basal insulin * NPH with breakfast - 14 units * Bolus insulin * NovoLog per scale ACHS or Q6hrs while NPO * Goal Range: 110-140 mg/dL or 140-180 mg/dL, depending on time of day * Correction Factor: 15-20 mg/dL/unit, depending on time of day * CHO ratio: 4-6 g CHO/unit, depending on time of day PLAN FOR DISCHARGE: * to be determined
--- NOTE | 2020-07-02 12:29 | Hospitalist Progress Note ---
Date of Service July 02, 2020 Assessment & Plan (1) Pneumonia due to COVID-19 virus: Completed 10 days of dexamethasone 6 mg IV daily. Completed 5-day course of Remdesivir IV with stable ALT; AST has been high but only mild. - 7 days of Rocephin and doxycycline IV - completed on 06/25/20. - Requiring stable oxygen at 40L and 100%. - Ventolin PRN - Cont pulmonary toilet - Flutter valve, Mucinex, incentive spirometry. - Improving today. Less shortness of breath. Low O2 need. Down to 3L NC. Will work with PT/OT. Will transfer to med/surg. (2) Numbness of left foot: Noted the morning of 06/30. Slight light-touch deficit, but normal on dorsal foot, ankle, taylor, etc. No motor deficits and no UE or facial deficits. Do NOT think this is CVA. More likely a diabetic or maybe a small nerve compression from self-proning. - Monitor -> Resolved after 1 day. Likely peripheral nerve compression or DM. No follow up needed. (3) Atrial fibrillation with RVR: New onset earlier this admission. Resolved with amiodarone infusion. - Appreciate Dr Lawson's input. - Continue amiodarone 200mg PO BID - Continue Lovenox 1mg/kg SQ BID -> Will hold off for now on warfarin. Will discuss with Dr. Lawson regarding if this was a one-time issue with Covid if anticoagulation is needed. - Continue metoprolol succinate 50 mg PO daily (4) Acute on chronic systolic ACC/AHA stage C congestive heart failure: Acute on chronic systolic CHF. CHF 2nd to ischemic cardiomyopathy. EF ~30% [facility]. - Cont metoprolol succinate; holding TIMMY but resume as BP allows. - Trend Cr - Stable on 06/29 at 1.25 - Lowered Bumex 2mg PO daily on 07/02 -> Appears euvolemic. (5) Hyperglycemia due to type 2 diabetes mellitus: A1c was 10.4% this admission. - Glycemic pharmacist following -> Working on sliding scale insulin along with NPH so that [facility] - Variable today. Low of 65 this morning, then higher. Will likely lower long- acting, but increase meal-time. (6) Gout: No flares. - Continue allopurinol prophylaxis (7) Hypertension: BP stable at 120/80 today. - Continue above meds (8) Dyslipidemia: - Restarted atorvastatin on 06/30 (had been held for high AST which normalized) (9) Mitral regurgitation: Echo from 08/2019 shows mitral regurg as moderate, posteriorly-directed MR. 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 No numbness of the leg. Less shortness of breath. Reports no fevers/chills, chest pain, abdominal pain, nausea, or vomiting. Physical Exam Constitutional: WD/WN, vitals as above Eyes: EOM intact bilaterally; no conjunctival abnormality ENMT: external ear and nose normal, oropharynx normal Neck: trachea midline, no thyromegaly normal visual inspection Respiratory: normal respiratory effort, lungs clear to auscultation no respiratory distress Cardiovascular: RRR, no murmur, no edema Gastrointestinal (Abdomen): Inspection/Auscultation: abdomen normal to inspection; abdomen not distended Musculoskeletal: no cyanosis or clubbing, extremities motor strength 5/5 Skin: no rashes, warm and dry Neurologic: moves all extremities and awake Speech / Cognition: normal speech Motor/Sensory: normal movement Psychiatric: Orientation: alert, oriented to person and cooperative Results & Data Results & Data ([facility]) Vital Signs (Past 12 Hours) Vital Signs Temp Pulse Pulse Pulse Resp BP BP 07/02/20 11:20 36.7 C 91 H 18 122/85 07/02/20 07:58 78 07/02/20 07:28 36.7 C 76 24 141/81 H 07/02/20 03:24 36.7 C 77 23 123/65 Pulse Ox 07/02/20 11:20 93 07/02/20 07:58 07/02/20 07:28 98 07/02/20 03:24 97 PG Care Time/CCT Total # of Minutes Spent Total Time Spent with Patient: Total time spent is greater than 50% in coordination of care (as documented) at patient's floor/unit and/or counseling patient: Coding Level of Care Code 95746 Subseq Hosp Care Lvl 2 Diagnoses Pneumonia due to COVID-19 virus U07.1; J12.89 Numbness of left foot R20.8 Atrial fibrillation with RVR I48.91 Acute on chronic systolic ACC/AHA stage C congestive heart failure I50.23 Hyperglycemia due to type 2 diabetes mellitus E11.65 Gout M10.9 Hypertension I10 Dyslipidemia E78.5 Mitral regurgitation I34.0 H/O splenectomy Z90.81 DVT prophylaxis Z29.9
[2020-07-02] MEDS: BACLOFEN 10 MG TAB PO SCH (20:11)
[2020-07-02] MEDS: DULoxetine HCL 30 MG CAP PO SCH (20:11)
[2020-07-02] MEDS: ATORVASTATIN 10 MG TAB PO SCH (20:12)
[2020-07-03] MEDS: ENOXAPARIN 80 MG/0.8 ML SYR SQ SCH ×2 (05:45→17:29)
[2020-07-03] MEDS: BACLOFEN 10 MG TAB PO SCH ×2 (09:21→21:30)
[2020-07-03] MEDS: BUMETANIDE 1 MG TAB PO SCH (09:22)
[2020-07-03] MEDS: CALCIUM 600MG + VIT D 400 IU TAB PO SCH (09:23)
[2020-07-03] MEDS: allopurinoL 300 MG TAB PO SCH (09:23)
[2020-07-03] MEDS: DOCUSATE SODIUM 100 MG CAP PO SCH (09:23)
[2020-07-03] MEDS: PANTOprazole 40 MG TAB PO SCH (09:23)
[2020-07-03] MEDS: SENNA 8.6 MG TAB PO SCH (09:24)
[2020-07-03] MEDS: CLOPIDOGREL BISULFATE 75 MG TAB PO SCH (09:24)
[2020-07-03] MEDS: lisinopril 5 MG TAB PO SCH (09:24)
[2020-07-03] MEDS: METOPROLOL SUCC 50MG EXT REL TAB PO SCH (09:25)
[2020-07-03] MEDS: POLYETHYLENE (MIRALAX) 17 GM PACK PO SCH (09:25)
[2020-07-03] MEDS: POTASSIUM CHLORIDE CRTAB 20 MEQ TABCR PO SCH ×2 (09:25→12:55)
[2020-07-03] MEDS: AMIODARONE 200 MG TAB PO SCH ×2 (09:26→17:29)
[2020-07-03] MEDS: ASPIRIN 81 MG ECTAB PO SCH (09:26)
[2020-07-03] MEDS: INSULIN HUMAN NPH SC SCH (09:27)
[2020-07-03] MEDS: ISOSORBIDE MONO EXTENDED REL 30 MG TABCR PO SCH (09:27)
[2020-07-03] MEDS: INSULIN ASPART 100 UNITS/ML 3 ML PEN SC SCH ×3 (09:31→21:17)
[2020-07-03 09:35] LABS: Hematocrit (blood only) 39.8 % (42-52); Mean Corpuscular Hemoglobin 27.1 pg (25-34); Mean Corpuscular Hgb Conc 32.7 g/dL (32-36); Mean Corpuscular Volume 83.1 fL (80-100); Mean Platelet Volume 10.5 fL (7.4-10.4); Platelet Count 298 K/uL (130-400); RDW Coefficient of Variation 15.9 % (11.5-14.5); RDW Standard Deviation 48.2 fL (36.4-46.3); Red Blood Count 4.79 M/uL (4.7-6.1); White Blood Count 7.39 K/uL (4.8-10.8)
[2020-07-03 10:15] LABS: BUN Creatinine Ratio 30.9 (10-20); Calcium 9.4 mg/dl (8.5-10.1); Creatinine Clr Calc Pharmacy 53.5 ml/min; Est GFR (African American) 63.3; Est GFR (Non-African American) 54.7; Magnesium 2.2 mg/dl (1.8-2.4); Potassium 5.3 mmol/L (3.5-5.1)
--- NOTE | 2020-07-03 11:07 | Pharmacy Report ---
Glycemic Control Progress Note - Date of Service July 03, 2020 - Scope Glycemic Pharmacist consulted for glycemic control to write orders per [facility] inpatient glycemic control protocol. - Objective Accuchecks BSG(last 24 hours):: 07/02/20 07/02/20 07/02/20 11:19 16:34 20:41 Glucose POC Glucose 237 H 165 H 186 H 07/03/20 07/03/20 08:21 08:26 Glucose 185 H POC Glucose 181 H HbA1c:: Hemoglobin A1c 10.4 % (4.5-5.6) H 06/19/20 07:29 - Recent Pertinent Medications The patient is currently receiving: * Basal insulin: NPH 14 units every 24 hours (IN THE MORNING ONLY) * Correctional Insulin: Novolog Correction per scale ACHS Goal Range: Low 110 mg/dL - High 140 mg/dL Correction Factor: 15 mg/dL/unit (20 MG/DL/UNIT DINNER AND HS) * Prandial insulin: Per carb ratio of 1 unit per 4 grams CHO consumed (PER 5 GRAMS CONSUMED WITH LUNCH AND 6 GRAMS CONSUMED WITH DINNER) - Outpatient Anti-Diabetic Meds NOVOLIN 70/30 -- 25 UNITS IN THE MORNING AND 30 UNITS IN THE EVENING - Assessment & Plan ASSESSMENT: * See progress note from 06/20/20 for more background info, in short: * Pt receiving SQ basal bolus insulin regimen for hyperglycemia secondary to baseline DM (outpatient regimen on hold). Patient is off steroids. * Patient is currently receiving an average of 50 units of insulin per day * 14 units of basal insulin * 36 units of prandial/correctional insulin * BSGs ranging 131 - 237 mg/dl over the past 24hrs * Changes needed to insulin regimen: * AM Fasting BSG = 181 mg/dl. This is above goal range for patient based on inpatient targets and co-morbidities. At this point, feel comfortable adding a second dose of basal insulin. BSGs have consistently greater than 100 mg/dL since 07/01/20. Will start with half of AM NPH dose and titrate upwards. * Post-prandial BSGs are reasonably controlled. Once basal insulin is stabilized will eliminate different CF/CR with each meal. * Total daily dose = 50-60 units. Increased insulin as appropriate. PLAN FOR INPATIENT GLYCEMIC CONTROL: * INCREASING NPH to 14 units SQ in AM and 7 units in PM * Continuing correction factor of 15-20 mg/dl/unit * Continuing carb ratio of 1 unit per 4-6 grams CHO consumed * Continuing goal range of Low 110 mg/dL - High 140 mg/dL * Please note that the plan above was derived based on current level of insulin resistance and hospital stress. These recommendations are appropriate for inpatient admission only. Plan of care upon discharge will need to be reassessed to avoid potential outpatient hypo/hyperglycemia. Thank you.
[2020-07-03] MEDS ORDERED: INSULIN ASPART 100 UNITS/ML 3 ML PEN SC SCH (11:30)
[2020-07-03] MEDS ORDERED: INSULIN HUMAN NPH SC SCH (16:30)
--- NOTE | 2020-07-03 17:28 | Hospitalist Progress Note ---
Date of Service July 03, 2020 Assessment & Plan (1) Pneumonia due to COVID-19 virus: Completed 10 days of dexamethasone 6 mg IV daily. Completed 5-day course of Remdesivir IV with stable ALT; AST has been high but only mild. - 7 days of Rocephin and doxycycline IV - completed on 06/25/20. - Cont pulmonary toilet - Flutter valve, Mucinex, incentive spirometry. - Improving today. Less shortness of breath. Low O2 need. Down to 4L NC. Tried to wean to 2L, but O2 sat dropped to 86%. Will likely need to be down to 3L before return to [facility] (at least this was last time I spoke with a assisted). (2) Numbness of left foot: Noted the morning of 06/30. Slight light-touch deficit, but normal on dorsal foot, ankle, taylor, etc. No motor deficits and no UE or facial deficits. Do NOT think this is CVA. More likely a diabetic or maybe a small nerve compression from self-proning. - Monitor -> Resolved after 1 day. Likely peripheral nerve compression or DM. No follow up needed. (3) Atrial fibrillation with RVR: New onset earlier this admission. Resolved with amiodarone infusion. - Appreciate cardiology input. - Spoke with them on 07/02. He had <48h of afib due to acute illness. No need for further anticoagulation. Discharge on amiodarone 200 mg PO daily which can be stopped in 1 month. Follow up outpatient with cardiology. - Continue metoprolol succinate 50 mg PO daily (4) Acute on chronic systolic ACC/AHA stage C congestive heart failure: Acute on chronic systolic CHF. CHF 2nd to ischemic cardiomyopathy. EF ~30% on echo done thru assisted system earlier in 2019. - Cont metoprolol succinate; holding TIMMY but resume as BP allows. - Lowered Bumex 1mg PO daily on 07/02 -> Appears euvolemic. (5) Hyperglycemia due to type 2 diabetes mellitus: A1c was 10.4% this admission. - Glycemic pharmacist following -> Working on sliding scale insulin along with NPH so that regimen can be followed at assisted - Today at 145 - 260. (6) Gout: No flares. - Continue allopurinol prophylaxis (7) Hypertension: BP stable at 95/65 today. - Continue above meds (8) Dyslipidemia: - Restarted atorvastatin on 06/30 (had been held for high AST which normalized) (9) Mitral regurgitation: Echo from 08/2019 shows mitral regurg as moderate, posteriorly-directed MR. - No acute needs (10) H/O splenectomy: Noted (11) DVT prophylaxis: Lovenox 40 mg SQ daily Admission and Anticipated Discharge Date Admission Date: June 18, 2020 Subjective Doing well today. He walked a bit down and [place] and became extremely winded. Reports no fevers/chills, chest pain, abdominal pain, nausea, or vomiting. Physical Exam Constitutional: WD/WN, vitals as above Eyes: EOM intact bilaterally; no conjunctival abnormality ENMT: external ear and nose normal, oropharynx normal Neck: trachea midline, no thyromegaly normal visual inspection Respiratory: normal respiratory effort, lungs clear to auscultation no respiratory distress Cardiovascular: RRR, no murmur, no edema Gastrointestinal (Abdomen): Inspection/Auscultation: abdomen normal to inspection; abdomen not distended Musculoskeletal: no cyanosis or clubbing, extremities motor strength 5/5 Skin: no rashes, warm and dry Neurologic: moves all extremities and awake Speech / Cognition: normal speech Motor/Sensory: normal movement Psychiatric: Orientation: alert, oriented to person and cooperative Results & Data Results & Data ([facility]) Vital Signs (Past 12 Hours) Vital Signs Temp Pulse Resp BP Pulse Ox 07/03/20 15:43 36.7 C 84 18 94/64 L 95 07/03/20 07:29 36.5 C 78 22 118/75 95 PG Care Time/CCT Total # of Minutes Spent Total Time Spent with Patient: Total time spent is greater than 50% in coordination of care (as documented) at patient's floor/unit and/or counseling patient: Coding Level of Care Code 01244 Subseq Hosp Care Lvl 3 Diagnoses Pneumonia due to COVID-19 virus U07.1; J12.89 Numbness of left foot R20.8 Atrial fibrillation with RVR I48.91 Acute on chronic systolic ACC/AHA stage C congestive heart failure I50.23 Hyperglycemia due to type 2 diabetes mellitus E11.65 Gout M10.9 Hypertension I10 Dyslipidemia E78.5 Mitral regurgitation I34.0 H/O splenectomy Z90.81 DVT prophylaxis Z29.9
[2020-07-03 18:51] LABS: BUN Creatinine Ratio 29.9 (10-20); Calcium 9.3 mg/dl (8.5-10.1); Creatinine Clr Calc Pharmacy 49.2 ml/min; Est GFR (African American) 57.3; Est GFR (Non-African American) 49.4; Potassium 5.4 mmol/L (3.5-5.1)
[2020-07-03] MEDS: DULoxetine HCL 30 MG CAP PO SCH (21:29)
[2020-07-03] MEDS: ATORVASTATIN 10 MG TAB PO SCH (21:30)
[2020-07-04 09:37] LABS: Hematocrit (blood only) 40.8 % (42-52); Hemoglobin 13.2 g/dL (14.0-18.0); Mean Corpuscular Hemoglobin 27.2 pg (25-34); Mean Corpuscular Hgb Conc 32.4 g/dL (32-36); Mean Platelet Volume 10.3 fL (7.4-10.4); Platelet Count 291 K/uL (130-400); RDW Coefficient of Variation 15.9 % (11.5-14.5); RDW Standard Deviation 48.4 fL (36.4-46.3); Red Blood Count 4.86 M/uL (4.7-6.1); White Blood Count 6.68 K/uL (4.8-10.8)
[2020-07-04] MEDS: INSULIN ASPART 100 UNITS/ML 3 ML PEN SC SCH ×4 (09:42→22:02)
[2020-07-04] MEDS: INSULIN HUMAN NPH SC SCH (09:43)
[2020-07-04] MEDS: BACLOFEN 10 MG TAB PO SCH ×2 (09:48→20:47)
[2020-07-04] MEDS: AMIODARONE 200 MG TAB PO SCH (09:48)
[2020-07-04] MEDS: BUMETANIDE 1 MG TAB PO SCH (09:49)
[2020-07-04] MEDS: DOCUSATE SODIUM 100 MG CAP PO SCH (09:49)
[2020-07-04 10:17] LABS: BUN Creatinine Ratio 27.1 (10-20); Calcium 9.5 mg/dl (8.5-10.1); Creatinine Clr Calc Pharmacy 55.7 ml/min; Est GFR (African American) 66.5; Est GFR (Non-African American) 57.4; Magnesium 2.3 mg/dl (1.8-2.4); Potassium 5.1 mmol/L (3.5-5.1)
[2020-07-04] MEDS: CALCIUM 600MG + VIT D 400 IU TAB PO SCH (10:22)
[2020-07-04] MEDS: ISOSORBIDE MONO EXTENDED REL 30 MG TABCR PO SCH (10:23)
[2020-07-04] MEDS: CLOPIDOGREL BISULFATE 75 MG TAB PO SCH (10:24)
[2020-07-04] MEDS: ASPIRIN 81 MG ECTAB PO SCH (10:24)
[2020-07-04] MEDS: METOPROLOL SUCC 50MG EXT REL TAB PO SCH (10:24)
[2020-07-04] MEDS: PANTOprazole 40 MG TAB PO SCH (10:24)
[2020-07-04] MEDS: allopurinoL 300 MG TAB PO SCH (10:25)
[2020-07-04] MEDS: ENOXAPARIN INJ 40 MG/0.4 ML SYR SQ SCH (10:28)
--- NOTE | 2020-07-04 11:44 | Pharmacy Report ---
Glycemic Control Progress Note - Date of Service July 04, 2020 - Scope Glycemic Pharmacist consulted for glycemic control to write orders per [facility] inpatient glycemic control protocol. - Objective Accuchecks BSG(last 24 hours):: 07/03/20 07/03/20 07/03/20 12:14 17:11 18:28 Glucose 147 H POC Glucose 258 H 144 H 07/03/20 07/04/20 07/04/20 20:40 08:03 09:09 Glucose 128 H POC Glucose 150 H 107 H HbA1c:: Hemoglobin A1c 10.4 % (4.5-5.6) H 06/19/20 07:29 - Recent Pertinent Medications The patient is currently receiving: * Basal insulin: NPH 14 units in the morning and 7 units in the evening * Correctional Insulin: Novolog Correction per scale ACHS Goal Range: Low 110 mg/dL - High 140 mg/dL Correction Factor: 15-20 mg/dL/unit * Prandial insulin: Per carb ratio of 1 unit per 4-6 grams CHO consumed - Outpatient Anti-Diabetic Meds Novolin 70/30 --> 25 units in the morning and 30 units in the PM - Assessment & Plan ASSESSMENT: * See progress note from 06/18/20 for more background info, in short: * Pt receiving SQ basal bolus insulin regimen for hyperglycemia secondary to baseline DM (outpatient regimen on hold). * Patient is currently receiving an average of 55 units of insulin per day * 21 units of basal insulin * 34 units of prandial/correctional insulin * BSGs ranging 144 - 258 mg/dl over the past 24hrs * Changes needed to insulin regimen: * AM Fasting BSG = 107 mg/dl. This is below goal range for patient based on inpatient targets and co-morbidities. Therefore, will reduce evening to 5 units. * Post-prandial BSGs were reasonably controlled yesterday. Since evening dose of NPH is somewhat stabilized will start one CF/CR for Novolog. Will go alf between everything and choose CF 18 and CR of 5. Higher goal range in case this is too aggressive. * Total daily dose = ~40-50 units. Adjusted insulin. PLAN FOR INPATIENT GLYCEMIC CONTROL: * Continuing NPH 14 units SQ daily then DECREASING NPH to 5 units in the evening * Continuing correction factor of 18 mg/dl/unit * Continuing carb ratio of 1 unit per 5 grams CHO consumed * Continuing goal range of Low 110 mg/dL - High 140 mg/dL * Please note that the plan above was derived based on current level of insulin resistance and hospital stress. These recommendations are appropriate for inpatient admission only. Plan of care upon discharge will need to be reassessed to avoid potential outpatient hypo/hyperglycemia. Thank you.
[2020-07-04] MEDS ORDERED: INSULIN HUMAN NPH SC SCH (16:30)
[2020-07-04] MEDS: CARBOHYDRATES FOR HYPOGLYCEMIA PO PRN ×2 (20:44→21:07)
[2020-07-04] MEDS: DULoxetine HCL 30 MG CAP PO SCH (20:46)
[2020-07-04] MEDS: ATORVASTATIN 10 MG TAB PO SCH (20:46)
--- NOTE | 2020-07-04 21:00 | Hospitalist Progress Note ---
Date of Service July 04, 2020 Assessment & Plan (1) Pneumonia due to COVID-19 virus: Completed 10 days of dexamethasone 6 mg IV daily. Completed 5-day course of Remdesivir IV with stable ALT; AST has been high but only mild. - 7 days of Rocephin and doxycycline IV - completed on 06/25/20. - Cont pulmonary toilet - Flutter valve, Mucinex, incentive spirometry. - [place] today. Less shortness of breath. Low O2 need. Down to 4L NC. If tis continues will discuss with [facility] tomorrow. (2) Numbness of left foot: Noted the morning of 06/30. Slight light-touch deficit, but normal on dorsal foot, ankle, taylor, etc. No motor deficits and no UE or facial deficits. Do NOT think this is CVA. More likely a diabetic or maybe a small nerve compression from self-proning. - Monitor -> Resolved after 1 day. Likely peripheral nerve compression or DM. No follow up needed. (3) Atrial fibrillation with RVR: New onset earlier this admission. Resolved with amiodarone infusion. - Appreciate cardiology input. - Spoke with them on 07/02. He had <48h of afib due to acute illness. No need for further anticoagulation. Discharge on amiodarone 200 mg PO daily which can be stopped in 1 month. Follow up outpatient with cardiology. - Continue metoprolol succinate 50 mg PO daily (4) Acute on chronic systolic ACC/AHA stage C congestive heart failure: Acute on chronic systolic CHF. CHF 2nd to ischemic cardiomyopathy. EF ~30% on echo done thru nursing home system earlier in 2019. - Cont metoprolol succinate; holding TIMMY but resume as BP allows. - Lowered Bumex 1mg PO daily on 07/02 -> Appears euvolemic. (5) Hyperglycemia due to type 2 diabetes mellitus: A1c was 10.4% this admission. - Glycemic pharmacist following -> Working on sliding scale insulin along with NPH so that regimen can be followed at nursing home -fasting 128 (6) Gout: No flares. - Continue allopurinol prophylaxis (7) Hypertension: BP stable at 95/65 today. - Continue above meds (8) Dyslipidemia: - Restarted atorvastatin on 06/30 (had been held for high AST which normalized) (9) Mitral regurgitation: Echo from 08/2019 shows mitral regurg as moderate, posteriorly-directed MR. 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 He has no new complaints at this time. Review of Systems Review of Systems: All systems reviewed & are unremarkable except as noted in HPI & below Physical Exam Physical Exam: Constitutional: well developed, well nourished and comfortable; no acute distress Neck: trachea midline, no thyromegaly Respiratory: normal respiratory effort no respiratory distress, no labored breathing and no cough Auscultation: lungs clear to auscultation bilaterally Cardiovascular: RRR, no murmur, no edema Gastrointestinal (Abdomen): normal bowel sounds, soft, nontender, no hepatosplenomegaly Musculoskeletal: no cyanosis or clubbing, extremities motor strength 5/5 Skin: no rashes, warm and dry Neurologic: patellar DTR's 2+ bilat, sensation intact and PERRL, EOMI, accommodation nl, no face palsy, no dysarthria Psychiatric: A+Ox3, euthymic affect Lymphatic: no cervical or axillary lymphadenopathy Results & Data Results & Data ([facility]) Vital Signs (Past 12 Hours) Vital Signs Temp Pulse Resp BP Pulse Ox 07/04/20 15:12 36.6 C 87 18 110/72 92 PG Care Time/CCT Total # of Minutes Spent Total Time Spent with Patient: Total time spent is greater than 50% in coordination of care (as documented) at patient's floor/unit and/or counseling patient: Coding Level of Care Code 58292 Subseq Hosp Care Lvl 3 Diagnoses Pneumonia due to COVID-19 virus U07.1; J12.89 Numbness of left foot R20.8 Atrial fibrillation with RVR I48.91 Acute on chronic systolic ACC/AHA stage C congestive heart failure I50.23 Hyperglycemia due to type 2 diabetes mellitus E11.65 Gout M10.9 Hypertension I10 Dyslipidemia E78.5 Mitral regurgitation I34.0 H/O splenectomy Z90.81 DVT prophylaxis Z29.9 Time Spent (min) 35
[2020-07-05] MEDS: INSULIN ASPART 100 UNITS/ML 3 ML PEN SC SCH ×2 (01:36→08:56)
[2020-07-05 06:35] LABS: Basophils # (auto) 0.01 K/uL (0-0.2); Basophils % (auto) 0.1 %; Eosinophils # (auto) 0.08 K/uL (0-0.5); Eosinophils % (auto) 1.2 %; Hematocrit (blood only) 37.8 % (42-52); Hemoglobin 12.4 g/dL (14.0-18.0); Immature Granulocytes # (auto) 0.02 K/uL (0.00-0.02); Immature Granulocytes % (auto) 0.3 %; Lymphocytes # (auto) 0.76 K/uL (1.2-3.4); Lymphocytes % (auto) 11.4 %; Mean Corpuscular Hemoglobin 27.3 pg (25-34); Mean Corpuscular Hgb Conc 32.8 g/dL (32-36); Mean Corpuscular Volume 83.1 fL (80-100); Mean Platelet Volume 10.5 fL (7.4-10.4); Monocytes # (auto) 0.33 K/uL (0.11-0.59); Monocytes % (auto) 4.9 %; Neutrophils # (auto) 5.48 K/uL (1.4-6.5); Neutrophils % (auto) 82.1 %; Platelet Count 313 K/uL (130-400); RDW Coefficient of Variation 16.1 % (11.5-14.5); RDW Standard Deviation 48.2 fL (36.4-46.3); Red Blood Count 4.55 M/uL (4.7-6.1); White Blood Count 6.68 K/uL (4.8-10.8)
[2020-07-05 07:05] LABS: BUN Creatinine Ratio 24.6 (10-20); Calcium 9.6 mg/dl (8.5-10.1); Creatinine Clr Calc Pharmacy 57.6 ml/min; Est GFR (African American) 69.3; Est GFR (Non-African American) 59.8; Potassium 4.9 mmol/L (3.5-5.1)
[2020-07-05] MEDS: INSULIN HUMAN NPH SC SCH (08:55)
[2020-07-05] MEDS: ISOSORBIDE MONO EXTENDED REL 30 MG TABCR PO SCH (08:59)
[2020-07-05] MEDS: BACLOFEN 10 MG TAB PO SCH (08:59)
[2020-07-05] MEDS: CALCIUM 600MG + VIT D 400 IU TAB PO SCH (08:59)
[2020-07-05] MEDS: PANTOprazole 40 MG TAB PO SCH (08:59)
[2020-07-05] MEDS: CLOPIDOGREL BISULFATE 75 MG TAB PO SCH (08:59)
[2020-07-05] MEDS: allopurinoL 300 MG TAB PO SCH (09:00)
[2020-07-05] MEDS: ASPIRIN 81 MG ECTAB PO SCH (09:01)
[2020-07-05] MEDS: BUMETANIDE 1 MG TAB PO SCH (09:01)
[2020-07-05] MEDS: METOPROLOL SUCC 50MG EXT REL TAB PO SCH (09:01)
[2020-07-05] MEDS: DOCUSATE SODIUM 100 MG CAP PO SCH ×2 (09:01→09:04)
[2020-07-05] MEDS: ENOXAPARIN INJ 40 MG/0.4 ML SYR SQ SCH (09:02)
[2020-07-05] MEDS: AMIODARONE 200 MG TAB PO SCH (09:02)
--- NOTE | 2020-07-05 10:44 | Pharmacy Report ---
Pharmacy Glycemic Short Note 2 - Date of Service July 05, 2020 - Glycemic Short BSG Results (Last 24 hours): OUTPATIENT ANTIDIABETIC REGIMEN: * 70/30 insulin - 25 units qAM, 30 units qPM * Regular insulin - sliding scale * A1c = 10.4% (06/19/20) ASSESSMENT: * 75 yo M admitted on 06/18/20 secondary to COVID-19. * He received a total of 60 units of insulin yesterday * 19 units basal + 41 units bolus * BSGs were uncontrolled: [id number] mg/dL * Of note, patient has completed 10 days of steroids for COVID already. No other steroids are on board at this time. * Last evening, patient had hypoglycemia but was asymptomatic. Initial BSG was 64 mg/dL and he received 15 gms of carbs. A 15 minute BSG recheck was 61 mg/dL for which the patient received another 15 gms of carbs. Next 15 minute recheck showed a BSG of 122 mg/dL. An overnight check at ~ 0400 was 171 mg/dL. * Of note, patient's goal range was loosened to 120-160 mg/dL yesterday morning. * Fasting BSG this AM was 122 mg/dL - at goal * Patient's appetite has increased over the past 24 hours with him consuming large amounts of carbohydrates. * Do not believe patient's hypoglycemia was related to NPH dosing. I believe patient requires multiple different correction factors and carbohydrate ratios depending on the meal. He has consistent displayed post-prandial hyperglycemia at lunchtime which could be related to an inadequate breakfast carb ratios. * Will continue with tightened CF/CR for breakfast only and then loosened both for lunch, dinner and HS. PLAN FOR INPATIENT GLYCEMIC CONTROL: * Basal insulin - no change * NPH - 14 units SC with breakfast and 5 units SC with dinner * Bolus insulin - loosened CF/CR except for with breakfast where it was tightened * NovoLog per scale ACHS or Q6hrs while NPO * Goal Range: 120 - 160 mg/dL * Breakfast: Correction Factor: 12 mg/dL/unit; CHO ratio: 4 g CHO/unit * Lunch, Dinner, HS: Correction Factor: 20 mg/dL/unit; CHO ratio: 6 g CHO/unit PLAN FOR DISCHARGE: * to be determined
[2020-07-05] MEDS ORDERED: INSULIN ASPART 100 UNITS/ML 3 ML PEN SC SCH (11:30)
[2020-07-06] MEDS ORDERED: INSULIN ASPART 100 UNITS/ML 3 ML PEN SC SCH (07:30)
--- NOTE | 2020-07-11 23:04 | Discharge Summary ---
Date of Service July 05, 2020 Admission HPI Per Admitting Provider The patient is a 75-year-old male with a past medical history including non- STEMI, ischemic cardiomyopathy, CAD, hypertension, dyslipidemia, diabetes mellitus type 2, GERD, acute on chronic systolic heart failure, MICHAEL to OM1, and abnormal liver function tests. Upon arrival to the emergency department, due to his acute shortness of breath, he was placed on BiPAP, with significant improvement in symptoms. Work-up in the emergency department Included following laboratories: Sodium 129, glucose 342, AST 67, troponin 0 0.118, BNP 7657, albumin 2.9, D-dimer 1150 and COVID-19 positive. Pulse ox was 92% on room air Portable chest x-ray showed cardiomegaly with perihilar interstitial/vascular thickening, favoring mild congestive change. There is also a hazy appearance of the right lung base which could be due to the suspected pulmonary edema or a viral pneumonitis. Principal Diagnosis Pneumonia due to COVID 19 Discharge Exam Constitutional: well developed, well nourished and comfortable; no acute distress Neck: trachea midline, no thyromegaly Respiratory: normal respiratory effort no respiratory distress, no labored breathing and no cough Auscultation: lungs clear to auscultation bilaterally Cardiovascular: RRR, no murmur, no edema Gastrointestinal (Abdomen): normal bowel sounds, soft, nontender, no hepatosplenomegaly Musculoskeletal: no cyanosis or clubbing, extremities motor strength 5/5 Skin: no rashes, warm and dry Neurologic: patellar DTR's 2+ bilat, sensation intact and PERRL, EOMI, accommodation nl, no face palsy, no dysarthria Psychiatric: A+Ox3, euthymic affect Lymphatic: no cervical or axillary lymphadenopathy Discharge Data Allergies Allergy/AdvReac Type Severity Reaction Status Date / Time Sulfa (Sulfonamide Allergy Mild Unknown Verified 07/06/20 02:05 Antibiotics) Penicillins Allergy Unknown . Verified 07/06/20 02:05 atorvastatin AdvReac Intermediate elevated Verified 07/06/20 02:05 LFT's Consultations 06/18/20 11:15 ED Decision to Admit Stat 06/18/20 14:31 Consult Cardiology Routine Consult Case Management - Discharge Planning Routine Diabetes Follow up Diabetes Follow-up Needed for HgbA1c >9% Hospital Course (1) Pneumonia due to COVID-19 virus: Completed 10 days of dexamethasone 6 mg IV daily. Completed 5-day course of Remdesivir IV with stable ALT; AST has been high but only mild. - 7 days of Rocephin and doxycycline IV - completed on 06/25/20. - Cont pulmonary toilet - Flutter valve, Mucinex, incentive spirometry. - Stbale today. Less shortness of breath. Low O2 need. Down to 3L NC. ok to discharge. (2) Numbness of left foot: Noted the morning of 06/30. Slight light-touch deficit, but normal on dorsal foot, ankle, taylor, etc. No motor deficits and no UE or facial deficits. Do NOT think this is CVA. More likely a diabetic or maybe a small nerve compression from self-proning. - Monitor -> Resolved after 1 day. Likely peripheral nerve compression or DM. No follow up needed. (3) Atrial fibrillation with RVR: New onset earlier this admission. Resolved with amiodarone infusion. - Appreciate cardiology input. - Spoke with them on 07/02. He had <48h of afib due to acute illness. No need for further anticoagulation. Discharge on amiodarone 200 mg PO daily which can be stopped in 1 month. Follow up outpatient with cardiology. - Continue metoprolol succinate 50 mg PO daily (4) Acute on chronic systolic ACC/AHA stage C congestive heart failure: Acute on chronic systolic CHF. CHF 2nd to ischemic cardiomyopathy. EF ~30% on echo done thru [facility] earlier in 2019. - Cont metoprolol succinate; holding TIMMY but resume as BP allows. - Lowered Bumex 1mg PO daily on 07/02 -> Appears euvolemic. (5) Hyperglycemia due to type 2 diabetes mellitus: A1c was 10.4% this admission. - Glycemic pharmacist following -> Working on sliding scale insulin along with NPH so that regimen can be followed at [facility] -fasting 128 (6) Gout: No flares. - Continue allopurinol prophylaxis (7) Hypertension: BP stable at 95/65 today. - Continue above meds (8) Dyslipidemia: - Restarted atorvastatin on 06/30 (had been held for high AST which normalized) (9) Mitral regurgitation: Echo from 08/2019 shows mitral regurg as moderate, posteriorly-directed MR. - No acute needs (10) H/O splenectomy: Noted (11) DVT prophylaxis: Lovenox 40 mg SQ daily Total Time Total Time Spent Total Time Spent (In Minutes): 32 Total Time Includes: Examination of the Patient, Discharge Planning and Medication Reconciliation Discharge Plan Discharge Items [facility]position: [facility] Reason For Visit: PNEUMONIA DUE TO COVID-19,NSTEMI,CHF Discharge Diagnosis: COVID-19 Activity: Resume your previous activity Non-emergency contact: Primary Care Provider Call non-emergency contact if: you have any medication questions Follow-up/Referrals: Cheyenne MERRILL [Primary Care Provider] - Diet: Carb Consistent or DM2 and Heart Healthy Diet Texture: Easy to Chew Addtl Attending Provider Instructions: Continue amiodarone for only 1 month. Titrate up on metformin to reach goal of 1 gr/BID Pending Studies at Discharge: No Stand-Alone Forms: My [facility] Skilled Items Patient informed of condition?: Yes Discharge Level of Care: Other Communicable Disease: No Discharge Prognosis: Stable Lines: None Urinary Catheter: No Medications and DC Order Prescriptions: Continued nitroglycerin [Nitrostat] 0.4 mg Tablet, Sublingual 0.4 mg sublingual UD PRN (Reason: Chest Pain) RF: 0 aspirin 81 mg Tablet,Delayed Release (Dr/Ec) 81 mg PO QAM RF: 0 allopurinol 300 mg Tablet 150 mg PO QAM RF: 0 metoprolol succinate 50 mg tablet extended release 24 hr 50 mg PO BID RF: 0 clopidogrel [Plavix] 75 mg Tablet 75 mg PO DAILY RF: 0 Caltrate 600 plus D 600 mg (1,500 mg)-800 unit Tablet,Chewable 1 tab PO DAILY RF: 0 atorvastatin 10 mg Tablet 10 mg PO HS RF: 0 isosorbide mononitrate 30 mg Tablet Extended Release 24 Hr 30 mg PO DAILY RF: 0 baclofen 10 mg Tablet 10 mg PO BID RF: 0 bumetanide 1 mg Tablet 1 mg PO DAILY RF: 0 docusate sodium 250 mg Capsule 250 mg PO DAILY RF: 0 celecoxib 100 mg Capsule 100 mg PO DAILY RF: 0 duloxetine 30 mg Capsule,Delayed Release(Dr/Ec) 30 mg PO HS RF: 0 Changed lisinopril 5 mg Tablet 2.5 mg PO DAILY Qty: 0 RF: 0 Discontinued Novolin 70/30 U-100 Insulin 100 unit/mL (70-30) Suspension 30 unit SUBCUT QPM RF: 0 Novolin 70/30 U-100 Insulin 100 unit/mL (70-30) Suspension 25 unit SUBCUT DAILY RF: 0 Novolin R Regular U-100 Insuln 100 unit/mL Solution 1 sliding scale dose SUBCUT USEASDIRECTD RF: 0 No Action amiodarone 200 mg tablet 200 mg PO BID RF: 0 Novolin 70/30 U-100 Insulin 100 unit/mL (70-30) suspension 30 unit SUBCUT QPM RF: 0 Novolin 70/30 U-100 Insulin 100 unit/mL (70-30) suspension 25 unit SUBCUT QAM RF: 0 Novolin R Regular U-100 Insuln 100 unit/mL Solution 1 sliding scale dose SUBCUT USEASDIRECTD RF: 0 Akwa Tears Ointment 1 applic OPB QID RF: 0 Discharge Orders: Discharge Order (Routine); Ordered 07/05/20 Ordered By: Ritchie Kruse Admission Data Admit Date/Time: 06/18/20 12:39 Attending Provider: Ritchie Kruse Admit Provider: Tiago Wiggins Primary Care Provider: Cheyenne MERRILL Other Providers: Kd Mcallister ; Tiago Wiggins ; Federico Lawson Other Interventions: Discharge Summary Assessment (RN) Last Done: 07/05/20 13:46 Coding Level of Care Code D/C Day Management >30 mins Diagnoses Pneumonia due to COVID-19 virus U07.1; J12.89 Numbness of left foot R20.8 Atrial fibrillation with RVR I48.91 Acute on chronic systolic ACC/AHA stage C congestive heart failure I50.23 Hyperglycemia due to type 2 diabetes mellitus E11.65 Gout M10.9 Hypertension I10 Dyslipidemia E78.5 Mitral regurgitation I34.0 H/O splenectomy Z90.81 DVT prophylaxis Z29.9
== END 2020-07-05 16:14 | DRG 177 ==
LOC: ED 10:25 → SUATTDRO 12:39 → 2E 12:39 → 3W 07-02 12:14

== ENCOUNTER 2020-07-06 00:56 | Inpatient (IN) ==
--- NOTE | 2020-07-06 01:10 | Emergency Department Note ---
Impression & Plan Acute respiratory failure with hypoxia, Sepsis, Multifocal pneumonia ED Provider Note Name: MARYANNE [id number] MONSE Age: 75 Sex: M Arrives Via: Ambulance Informant: Patient, EMS ED Provider: Jarret Stanley MD Chief Complaint: Shortness of breath Impression: Acute Respiratory Failure with Hypoxia Sepsis Multifocal Pneumonia Medical Decision Makin yr old male with a history of CAD, HTN, DMII, DLP, GERD, CHF, Cardiomyopathy, Gout, Elevated LFT recently hospitalized for the last 18days being treated for covid complicated by secondary bacterial infection and PAF. Patient discharged earlier in day but on arriving to halfway worsening breathing. Eventually hypoxic to 70s on NC O2 and EMS brought here. En route able to get sats to low 90s with NRB. Patient with poor lung sounds though breathing much more comfortably on NRB. Already has received steroids and Remdisivir courses along with recent rocephin/doxy x 7 days. CXR concerning for worsenign multifocal pneumonia. Not overtly overloaded by exam and I think this more likely infectious than CHF, especially given fever, lactate elevation and history. He was given hydration with NSS bolus along with fluids from Vanco. Would hold on further fluids as he is risk of rapid overload. Was given vanco/aztreonam for abx coverage. After discussing with hospitalist they requested IV steroids as well. He was doing much better with above treatments and will be brought in to hospital for further management. Prior Medical Record and Triage/Nursing Notes reviewed by Me Additional history obtained from chart Differentials:Reactive airway disease, pneumonia, pneumothorax, COPD, CHF, infections, cardiac ischemia, pulmonary embolism, musculoskeletal, ga strointestinal, as well as other pathologies. Vital Signs: reviewed and remarkable for hypoxia, febrile Interventions: saline lock, nss bolus, aztreonam IV, vanco IV, solumedrol IV Labs:Reviewed and remarkable for bump in Cr, elevated lactate Imaging:X ray results are stated below per my interpretation: Chest: 1 view: Diffuse infiltrative disease worsening from previous EKG:Per My Interpretation: Indication Shortness of breath: NSR 77 bpm, qtc 477. No Ectopy. No Ischemia. Compared to EKG 06/21/20 resolution afib and improved. Cardiac/Tele Monitoring: Cardiac Monitoring: An Order was placed for continuous cardiac monitoring. The monitor shows a rate of 77 with a normal sinus rhythm. Consults:Dr Rosalie SCHMIDT Hospitalist Plan: Disposition:Hospitalization. Condition: Fair History of Present Illness:75 yr old male with history of PAF, CHF, GERD, DLP, HTN, CAD, Cardiomyopathy arrives for evaluation of shortness of breath. Patient with Covid on 06/18/20 admitted to hospital for the previous 18 days arrives several hours post discharge. Notes after getting to halfway he had rapidly worsening shortness of breath. Associated with cough and small amount of hemoptysis. [facility] worsening shortness of breath and sats in mid 70s. EMS called and patient O2 sats 77% for them. Placed on NRB and NC 100% with gradual improvement O2 sats and shortness of breath improving. Patient denies current chest pain, nausea, vomiting, abdominal pain, back pain, leg swelling nor other symptoms. He has been receiving sub q lovenox while in hospital including this morning. While in hospital patient completed Decadron and Remdisivir for COVID. He also received full 7 day courses of Rocephin/Doxy for secondary pneumonia. ROS: See above HPI for pertinent positives & negatives. A total of 10 systems reviewed and were otherwise negative. Past Medical History: PAF, CAD, HTN, DMII, DLP, GERD, CHF, Cardiomyopathy, Gout, Elevated LFTs Past Surgical History: Cardiac Stents, Appendectomy, Splenectomy Family History: DMII Social History: Prisoner, Former smoker, No ETOH Home Medications: See Below Allergies: Sulfa, Penicillin, Atorvastatin Vitals:Blood Pressure: 110/70, Pulse 80, RR 26, T 37.6C, O2 93% on NRB 15L Physical Exam: GENERAL: Patient is chronically unwell appearing and in moderate distress. EYES: No scleral icterus, unremarkable pupils. ENT: Mucous membranes moist, no nasal congestion. NECK: No masses appreciated, nomeningismus, trachea is midline. RESPIRATORY: Tachypnea, Dyspnea, diffuse crackles.. No wheeze, no rhonchi. CARDIOVASCULAR: RRR, No murmurs, rubs, gallops appreciated. GASTROINTESTINAL: Abdomen soft, non-tender, no peritonitis.Bowel sounds positive.No masses appreciated. BACK: No midline tenderness, no CVA tenderness EXTREMITIES: Normal motion all extremities, no cyanosis, no edema. NEUROLOGIC: Alert and oriented, no acute motor or sensory deficits, no focal weakness, cranial nerves grossly intact. SKIN: No rash, no jaundice, no diaphoresis. PSYCH: Appropriate GCS: 15 ED Course: Times/Reassessments: Stable, mild tachypnea though feeling better than on EMS arrival Jarret Stanley MD Past Med/Surg History Medical History Abnormal liver function tests Anemia Cardiomyopathy Colon polyps Coronary artery disease Diabetes mellitus type 2 with complications Diverticulitis Dyslipidemia GERD (gastroesophageal reflux disease) Gout Hypertension Surgical History History of heart artery stent Status post appendectomy Status post splenectomy Family History Other Diabetes Social History Smoking Status: Former smoker Tobacco Type: Cigarettes Second Hand Exposure: No; Hx Alcohol Use: No Hx Substance Use: No Preferred Language: Tamazight Communication Ability: Effective Visual Impairment: No Limitations 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: Normal Outside Sales Consultant Required: No Beliefs That Will Affect Care: None marital status: Unknown Current Living Situation: Other Current Living Situation Comment: [employer] Feels Safe at Home: Yes Assistive Devices: Oxygen - Continuous Allergies Allergies Allergy/AdvReac Type Severity Reaction Status Date / Time Sulfa (Sulfonamide Allergy Mild Unknown Verified 07/06/20 02:05 Antibiotics) Penicillins Allergy Unknown . Verified 07/06/20 02:05 atorvastatin AdvReac Intermediate elevated Verified 07/06/20 02:05 LFT's Home Meds Home Medications Medication Instructions Recorded Confirmed allopurinol 150 mg PO QAM 02/02/19 07/06/20 aspirin 81 mg PO QAM 02/02/19 07/06/20 nitroglycerin [Nitrostat] 0.4 mg SUBLINGUAL UD PRN 02/02/19 07/06/20 Caltrate 600 plus D 1 tab PO DAILY 09/15/19 07/06/20 clopidogrel [Plavix] 75 mg PO DAILY 09/15/19 07/06/20 metoprolol succinate 50 mg PO BID 09/15/19 07/06/20 atorvastatin 10 mg PO HS 06/18/20 07/06/20 baclofen 10 mg PO BID 06/18/20 07/06/20 bumetanide 1 mg PO DAILY 06/18/20 07/06/20 celecoxib 100 mg PO DAILY 06/18/20 07/06/20 docusate sodium 250 mg PO DAILY 06/18/20 07/06/20 duloxetine 30 mg PO HS 06/18/20 07/06/20 isosorbide mononitrate 30 mg PO DAILY 06/18/20 07/06/20 Novolin 70/30 U-100 Insulin 25 unit SUBCUT QAM 07/06/20 07/06/20 Novolin 70/30 U-100 Insulin 30 unit SUBCUT QPM 07/06/20 07/06/20 amiodarone 200 mg PO BID 07/06/20 07/06/20 artificial tears with lanolin 1 applic OPB QID 07/06/20 07/06/20 [Akwa Tears] insulin regular human [Novolin R 1 sliding scale dose SUBCUT 07/06/20 07/06/20 Regular U-100 Insuln] USEASDIRECTD Previous Rx's Medication Instructions Recorded lisinopril 2.5 mg PO DAILY #0 tab 07/05/20 Results & Data (ED) Vital Signs Vital Signs - 24 hr 07/06/20 01:03 07/06/20 01:30 07/06/20 02:00 Temperature 37.6 C H Temperature Source Oral Pulse Rate 75 75 75 Pulse Rate from SpO2 Sensor 73 75 Pulse Rhythm Regular Pulse Strength Normal Respiratory Rate 22 25 H 25 H Respiratory Effort / Characteristics Non-Labored Spontaneous Respiratory Depth Normal Respiratory Pattern Tachypnea Blood Pressure 118/75 117/76 112/71 Blood Pressure Mean 89 91 81 Blood Pressure Position Lying Pulse Oximetry 97 96 97 Oxygen Delivery Method Non-rebreather Non-rebreather Non-rebreather Oxygen Flow Rate 15 15 15 Sepsis Recent Fever Within 48 Hours No Sepsis New/Unexplained Change in Mental Status No Sepsis Action Taken by Nursing No Action Required 07/06/20 02:30 Temperature Temperature Source Pulse Rate 75 Pulse Rate from SpO2 Sensor 75 Pulse Rhythm Pulse Strength Respiratory Rate 31 H Respiratory Effort / Characteristics Respiratory Depth Respiratory Pattern Blood Pressure 132/75 Blood Pressure Mean 94 Blood Pressure Position Pulse Oximetry 98 Oxygen Delivery Method Non-rebreather Oxygen Flow Rate 15 Sepsis Recent Fever Within 48 Hours Sepsis New/Unexplained Change in Mental Status Sepsis Action Taken by Nursing Laboratory Data Result diagrams: 07/06/20 01:25 07/06/20 01:25 Lab Results 07/06/20 07/06/20 07/06/20 Range/Units 01:25 01:25 01:25 WBC 9.37 (4.8-10.8) K/uL RBC 5.02 (4.7-6.1) M/uL Hgb 13.6 L (14.0-18.0) g/dL Hct 42.3 (42-52) % MCV 84.3 (80-100) fL MCH 27.1 (25-34) pg MCHC 32.2 (32-36) g/dL RDW Std Deviation 48.4 H (36.4-46.3) fL RDW Coeff of Maria Guadalupe 16.1 H (11.5-14.5) % Plt Count 311 (130-400) K/uL MPV 10.4 (7.4-10.4) fL Immature Gran % (Auto) 0.1 % Neut % (Auto) 86.1 % Lymph % (Auto) 6.4 % [place] % (Auto) 6.2 % Eos % (Auto) 1.1 % Baso % (Auto) 0.1 % Neut # (Auto) 8.07 H (1.4-6.5) K/uL Lymph # (Auto) 0.60 L (1.2-3.4) K/uL [place] # (Auto) 0.58 (0.11-0.59) K/uL Eos # (Auto) 0.10 (0-0.5) K/uL Baso # (Auto) 0.01 (0-0.2) K/uL Immature Gran # (Auto) 0.01 (0.00-0.02) K/uL VBG pH VBG pCO2 VBG pO2 VBG HCO3 VBG O2 Saturation VBG Base Excess Barometric Pressure Sodium 133 L (136-145) mmol/L Potassium 4.7 (3.5-5.1) mmol/L Chloride 96 L (98-107) mmol/L Carbon Dioxide 31 (21-32) mmol/L Anion Gap 6.0 (3-11) BUN 29 H (7-18) mg/dl Creatinine 1.51 H D (0.6-1.4) mg/dl Est Cr Clr Drug Dosing 55.2 ml/min Est GFR ( Amer) 50.9 Est GFR (Non-Af Amer) 43.9 BUN/Creatinine Ratio 19.0 (10-20) Glucose 72 (70-99) mg/dl Lactate 2.9 H* (0.4-2.0) mmol/L Calcium 9.7 (8.5-10.1) mg/dl Magnesium 2.1 (1.8-2.4) mg/dl Total Bilirubin 0.3 (0.2-1) mg/dl Direct Bilirubin 0.2 (0-0.2) mg/dl AST 30 (15-37) U/L ALT 52 (12-78) U/L Alkaline Phosphatase 254 H (45-117) U/L Troponin I 0.018 (0-0.045) ng/ml Total Protein 8.8 H (6.4-8.2) gm/dl Albumin 2.4 L (3.4-5.0) gm/dl Lipase 62 L (73-393) U/L 07/06/20 Range/Units 01:42 WBC (4.8-10.8) K/uL RBC (4.7-6.1) M/uL Hgb (14.0-18.0) g/dL Hct (42-52) % MCV (80-100) fL MCH (25-34) pg MCHC (32-36) g/dL RDW Std Deviation (36.4-46.3) fL RDW Coeff of Maria Guadalupe (11.5-14.5) % Plt Count (130-400) K/uL MPV (7.4-10.4) fL Immature Gran % (Auto) % Neut % (Auto) % Lymph % (Auto) % [place] % (Auto) % Eos % (Auto) % Baso % (Auto) % Neut # (Auto) (1.4-6.5) K/uL Lymph # (Auto) (1.2-3.4) K/uL [place] # (Auto) (0.11-0.59) K/uL Eos # (Auto) (0-0.5) K/uL Baso # (Auto) (0-0.2) K/uL Immature Gran # (Auto) (0.00-0.02) K/uL VBG pH Cancelled VBG pCO2 Cancelled VBG pO2 Cancelled VBG HCO3 Cancelled VBG O2 Saturation Cancelled VBG Base Excess Cancelled Barometric Pressure Cancelled Sodium (136-145) mmol/L Potassium (3.5-5.1) mmol/L Chloride (98-107) mmol/L Carbon Dioxide (21-32) mmol/L Anion Gap (3-11) BUN (7-18) mg/dl Creatinine (0.6-1.4) mg/dl Est Cr Clr Drug Dosing ml/min Est GFR ( Amer) Est GFR (Non-Af Amer) BUN/Creatinine Ratio (10-20) Glucose (70-99) mg/dl Lactate (0.4-2.0) mmol/L Calcium (8.5-10.1) mg/dl Magnesium (1.8-2.4) mg/dl Total Bilirubin (0.2-1) mg/dl Direct Bilirubin (0-0.2) mg/dl AST (15-37) U/L ALT (12-78) U/L Alkaline Phosphatase (45-117) U/L Troponin I (0-0.045) ng/ml Total Protein (6.4-8.2) gm/dl Albumin (3.4-5.0) gm/dl Lipase (73-393) U/L Administered Medications Discontinued Medications Vancomycin HCl 2,250 mg/ (Sodium Chloride) 545 mls @ 200 mls/hr IV NOW ONE Stop: 07/06/20 04:42 Last Admin: 07/06/20 03:35 Dose: 200 mls/hr Documented by: [id number] Aztreonam 1,000 mg/ Dextrose 110 mls @ 100 mls/hr IV NOW STA; Protocol Stop: 07/06/20 03:04 Last Infusion: 07/06/20 04:57 Dose: 0 mls/hr Documented by: [id number] Admin: 07/06/20 03:35 Dose: 100 mls/hr Documented by: [id number] Sodium Chloride (Nss 1000ml) 500 mls @ 999 mls/hr IV .Q31M ONE Stop: 07/06/20 02:40 Last Infusion: 07/06/20 04:23 Dose: 0 mls/hr Documented by: [id number] Admin: 07/06/20 03:36 Dose: 999 mls/hr Documented by: [id number] Methylprednisolone (Methylprednisolone 125 Mg/2 Ml Vial) 125 mg IV NOW STA Stop: 07/06/20 02:31 Last Admin: 07/06/20 03:36 Dose: 125 mg Documented by: [id number] Discharge Plan Visit Data Chief Complaint: Shortness of Breath/Dyspnea Stated Complaint: +COVID/SOB/COUGHING BLOOD ED Provider: Jarret Stanley Discharge Problem: Acute respiratory failure with hypoxia, Sepsis, Multifocal pneumonia Patient Disposition: Admitted As Inpatient Discharge Instructions Interventions: ED Discharge Assessment Last Done: 07/06/20 05:35 Discharge Problem: Sepsis Qualifiers: Sepsis type: sepsis due to unspecified organism Sepsis acute organ dysfunction status: with acute organ dysfunction Severe sepsis acute organ dysfunction type: acute respiratory failure Acute respiratory failure type: with hypoxia Severe sepsis shock status: without septic shock Qualified Code(s): A41.9 - Sepsis, unspecified organism
[2020-07-06 01:42] LABS: Basophils # (auto) 0.01 K/uL (0-0.2); Basophils % (auto) 0.1 %; Eosinophils % (auto) 1.1 %; Hematocrit (blood only) 42.3 % (42-52); Hemoglobin 13.6 g/dL (14.0-18.0); Immature Granulocytes # (auto) 0.01 K/uL (0.00-0.02); Immature Granulocytes % (auto) 0.1 %; Lymphocytes % (auto) 6.4 %; Mean Corpuscular Hemoglobin 27.1 pg (25-34); Mean Corpuscular Hgb Conc 32.2 g/dL (32-36); Mean Corpuscular Volume 84.3 fL (80-100); Mean Platelet Volume 10.4 fL (7.4-10.4); Monocytes # (auto) 0.58 K/uL (0.11-0.59); Monocytes % (auto) 6.2 %; Neutrophils # (auto) 8.07 K/uL (1.4-6.5); Neutrophils % (auto) 86.1 %; Platelet Count 311 K/uL (130-400); RDW Coefficient of Variation 16.1 % (11.5-14.5); RDW Standard Deviation 48.4 fL (36.4-46.3); Red Blood Count 5.02 M/uL (4.7-6.1); White Blood Count 9.37 K/uL (4.8-10.8)
[2020-07-06 01:59] LABS: Albumin Level 2.4 gm/dl (3.4-5.0); Bilirubin Direct 0.2 mg/dl (0-0.2); Calcium 9.7 mg/dl (8.5-10.1); Creatinine Clr Calc Pharmacy 55.2 ml/min; Est GFR (African American) 50.9; Est GFR (Non-African American) 43.9; Magnesium 2.1 mg/dl (1.8-2.4); Potassium 4.7 mmol/L (3.5-5.1)
[2020-07-06] MEDS ORDERED: VANCOMYCIN HCL 2,250 MG in SODIUM CHLORIDE 0.9% 500 ML IV ONE (01:59)
[2020-07-06] MEDS ORDERED: VANCOMYCIN CONSULT ACTIVE PRN ×2 (01:59→05:54)
[2020-07-06] MEDS ORDERED: AZTREONAM 1,000 MG in DEXTROSE 5% 100 ML IV STA (01:59)
[2020-07-06 02:04] LABS: Bilirubin,Total 0.3 mg/dl (0.2-1); Total Protein 8.8 gm/dl (6.4-8.2); Troponin I 0.018 ng/ml (0-0.045)
[2020-07-06] MEDS ORDERED: SODIUM CHLORIDE 0.9% 1000ML 500 ML IV ONE (02:10)
[2020-07-06] MEDS ORDERED: methylPREDNISolone 125 MG/2 ML VIAL IV STA (02:30)
--- NOTE | 2020-07-06 03:00 | History & Physical Report ---
Date of Service July 06, 2020 Assessment & Plan (1) Acute respiratory failure with hypoxia: Acute respiratory failure with hypoxia/multifocal pneumonia/worsening fibrosis- Most recently treated for COVID-19 pneumonia during admission from 06/18- 07/05/2020. Symptoms today are likely a combination of worsening fibrosis and secondary bacterial pneumonia. Placed on vancomycin IV per pharmacokinetic monitoring. Aztreonam 2 g IV every 12 hours Methylprednisolone 40 mg IV every 8 hours Duonebs every 4 hours while awake and every 2 hours when necessary. Present on Admission?: Yes (2) Multifocal pneumonia: See above Present on Admission?: Yes (3) Atrial fibrillation with RVR: History of atrial fibrillation with RVR/ischemic cardiomyopathy/hypertension- Continue amiodarone 200 mg p.o. twice daily, aspirin 81 mg daily, bumetanide 1 mg p.o. daily, clopidogrel 75 mg p.o. daily, isosorbide mononitrate 30 mg p.o. daily and metoprolol succinate 50 mg p.o. twice daily Hold lisinopril due to MERRILL. Present on Admission?: Yes (4) Ischemic cardiomyopathy: See above Present on Admission?: Yes History of Present Illness Chief Complaint: The patient presents to the emergency department with complaint of worsening shortness of breath upon arrival to the intermediate, after being discharged earlier in the day. Primary Care Provider: DESIRAE Quinn The patient is a 75-year-old male with a past medical history including candidiasis of mouth and esophagus, paroxysmal atrial fibrillation with RVR, history of splenectomy, hyponatremia, mitral vegetation, intractable hiccups, hyperglycemia due to diabetes mellitus type 2, pneumonia due to COVID-19 virus, hypoglycemia, sleep apnea-like behavior, abnormal liver function test, gout, history of stented coronary artery, elevated troponin, acute on chronic stage C CHF, ischemic, cardiomyopathy and non-STEMI. He was most recently admitted to [facility] from June 18 through July 05, 2020 for treatment of COVID-19 pneumonia with hypoxia and acute respiratory failure. He was just discharged earlier in the day, as noted above, he reports became acutely short of breath upon arrival to the intermediate, at which point he was brought back to the emergency department. Allergies Allergy/AdvReac Type Severity Reaction Status Date / Time Sulfa (Sulfonamide Allergy Mild Unknown Verified 07/06/20 02:05 Antibiotics) Penicillins Allergy Unknown . Verified 07/06/20 02:05 atorvastatin AdvReac Intermediate elevated Verified 07/06/20 02:05 LFT's Home Medications Medication Instructions Recorded Confirmed Type allopurinol 150 mg PO QAM 02/02/19 07/06/20 History aspirin 81 mg PO QAM 02/02/19 07/06/20 History nitroglycerin [Nitrostat] 0.4 mg SUBLINGUAL UD PRN 02/02/19 07/06/20 History Caltrate 600 plus D 1 tab PO DAILY 09/15/19 07/06/20 History clopidogrel [Plavix] 75 mg PO DAILY 09/15/19 07/06/20 History metoprolol succinate 50 mg PO BID 09/15/19 07/06/20 History atorvastatin 10 mg PO HS 06/18/20 07/06/20 History baclofen 10 mg PO BID 06/18/20 07/06/20 History bumetanide 1 mg PO DAILY 06/18/20 07/06/20 History celecoxib 100 mg PO DAILY 06/18/20 07/06/20 History docusate sodium 250 mg PO DAILY 06/18/20 07/06/20 History duloxetine 30 mg PO HS 06/18/20 07/06/20 History isosorbide mononitrate 30 mg PO DAILY 06/18/20 07/06/20 History lisinopril 2.5 mg PO DAILY #0 tab 07/05/20 07/06/20 Rx Novolin 70/30 U-100 Insulin 25 unit SUBCUT QAM 07/06/20 07/06/20 History Novolin 70/30 U-100 Insulin 30 unit SUBCUT QPM 07/06/20 07/06/20 History amiodarone 200 mg PO BID 07/06/20 07/06/20 History artificial tears with lanolin 1 applic OPB QID 07/06/20 07/06/20 History [Akwa Tears] insulin regular human [Novolin R 1 sliding scale dose SUBCUT 07/06/20 07/06/20 History Regular U-100 Insuln] USEASDIRECTD Past Med/Surg History Medical History Abnormal liver function tests Anemia Cardiomyopathy Colon polyps Coronary artery disease Diabetes mellitus type 2 with complications Diverticulitis Dyslipidemia GERD (gastroesophageal reflux disease) Gout Hypertension Surgical History History of heart artery stent Status post appendectomy Status post splenectomy Family History Other Diabetes Social History Smoking Status: Former smoker Tobacco Type: Cigarettes Second Hand Exposure: No; Do You Dip or Chew Tobacco: No; Hx Alcohol Use: No Hx Substance Use: No Preferred Language: Swazi Communication Ability: Effective Visual Impairment: No Limitations 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: Normal Talent Management Manager Required: No Beliefs That Will Affect Care: None marital status: Unknown Current Living Situation: Other Current Living Situation Comment: [employer] Other Information That Helps Us Care for You: No Feels Safe at Home: Yes Safety Concerns: Feels Safe At This Time Assistive Devices: Oxygen - Continuous Review of Systems Review of Systems: The patient denies chest pain, palpitations, lower extremity swelling, sore throat, fevers, chills, sweats, nausea, vomiting, diarrhea , constipation, abdominal pain, pelvic pain, blood in urine or stool, dysuria, urinary frequency or urgency, lightheadedness, dizziness, headache, memory loss, loss of consciousness, rash, abnormal bruising or bleeding, imbalance, focal or generalized weakness, numbness or tingling in arms or legs, back or neck pain, or night sweats. The review of systems is otherwise negative other than for that already noted above, and at least 10 systems have been reviewed. Physical Exam Physical Exam: The patient is awake, alert and oriented 3, well developed and well nourished, normocephalic and atraumatic, lying in bed and in no acute distress with nonrebreather mask. HEENT--PERRL, EOMI, mucous membranes and oropharynx normal. Neck--supple. No JVD. No bruits. Thyroid normal, trachea midline, no adenopathy. Heart--normal S1 and S2. No murmurs, rubs or gallops. Lungs--coarse breath sounds bilaterally. No respiratory distress, no accessory muscle use. Abdomen--normal bowel sounds and soft. Nontender. Nondistended. Extremities--no cyanosis or clubbing. No edema. Dermatologic--normal skin turgor, normal color, no abnormal lymph nodes, no rash. Neurologic--cranial nerves II through XII grossly intact. Rheumatologic--normal range of motion. Psychiatric--normal affect. Results & Data Results & Data ([facility]) Vital Signs (Past 12 Hours) Vital Signs Temp Pulse Resp BP Pulse Ox 07/06/20 01:03 99.7 F H 75 22 118/75 97 Laboratory Results Laboratory Results WBC 9.37 K/uL (4.8-10.8) 07/06/20 01:25 RBC 5.02 M/uL (4.7-6.1) 07/06/20 01:25 Hgb 13.6 g/dL (14.0-18.0) L 07/06/20 01:25 Hct 42.3 % (42-52) 07/06/20 01:25 MCV 84.3 fL (80-100) 07/06/20 01:25 MCH 27.1 pg (25-34) 07/06/20 01:25 MCHC 32.2 g/dL (32-36) 07/06/20 01:25 RDW Std Deviation 48.4 fL (36.4-46.3) H 07/06/20 01:25 RDW Coeff of Maria Guadalupe 16.1 % (11.5-14.5) H 07/06/20 01:25 Plt Count 311 K/uL (130-400) 07/06/20 01:25 MPV 10.4 fL (7.4-10.4) 07/06/20 01:25 Immature Gran % (Auto) 0.1 % 07/06/20 01:25 Neut % (Auto) 86.1 % 07/06/20 01:25 Lymph % (Auto) 6.4 % 07/06/20 01:25 [place] % (Auto) 6.2 % 07/06/20 01:25 Eos % (Auto) 1.1 % 07/06/20 01:25 Baso % (Auto) 0.1 % 07/06/20 01:25 Neut # (Auto) 8.07 K/uL (1.4-6.5) H 07/06/20 01:25 Lymph # (Auto) 0.60 K/uL (1.2-3.4) L 07/06/20 01:25 [place] # (Auto) 0.58 K/uL (0.11-0.59) 07/06/20 01:25 Eos # (Auto) 0.10 K/uL (0-0.5) 07/06/20 01:25 Baso # (Auto) 0.01 K/uL (0-0.2) 07/06/20 01:25 Immature Gran # (Auto) 0.01 K/uL (0.00-0.02) 07/06/20 01:25 VBG pH 7.37 (7.36-7.41) 07/06/20 03:24 VBG pCO2 56 mmHg (38-50) H 07/06/20 03:24 VBG pO2 23 mmHg 07/06/20 03:24 VBG HCO3 31 mmol/L 07/06/20 03:24 VBG O2 Saturation < 60.0 % 07/06/20 03:24 VBG Base Excess 4.7 mEq/L 07/06/20 03:24 Barometric Pressure Cancelled 07/06/20 01:42 Sodium 133 mmol/L (136-145) L 07/06/20 01:25 Potassium 4.7 mmol/L (3.5-5.1) 07/06/20 01:25 Chloride 96 mmol/L (98-107) L 07/06/20 01:25 Carbon Dioxide 31 mmol/L (21-32) 07/06/20 01:25 Anion Gap 6.0 (3-11) 07/06/20 01:25 BUN 29 mg/dl (7-18) H 07/06/20 01:25 Creatinine 1.51 mg/dl (0.6-1.4) H D 07/06/20 01:25 Est Cr Clr Drug Dosing 55.2 ml/min 07/06/20 01:25 Est GFR ( Amer) 50.9 07/06/20 01:25 Est GFR (Non-Af Amer) 43.9 07/06/20 01:25 BUN/Creatinine Ratio 19.0 (10-20) 07/06/20 01:25 Glucose 72 mg/dl (70-99) 07/06/20 01:25 Lactate 2.6 mmol/L (0.4-2.0) H* 07/06/20 03:24 Calcium 9.7 mg/dl (8.5-10.1) 07/06/20 01:25 Magnesium 2.1 mg/dl (1.8-2.4) 07/06/20 01:25 Total Bilirubin 0.3 mg/dl (0.2-1) 07/06/20 01:25 Direct Bilirubin 0.2 mg/dl (0-0.2) 07/06/20 01:25 AST 30 U/L (15-37) 07/06/20 01:25 ALT 52 U/L (12-78) 07/06/20 01:25 Alkaline Phosphatase 254 U/L (45-117) H 07/06/20 01:25 Troponin I 0.018 ng/ml (0-0.045) 07/06/20 01:25 Total Protein 8.8 gm/dl (6.4-8.2) H 07/06/20 01:25 Albumin 2.4 gm/dl (3.4-5.0) L 07/06/20 01:25 Lipase 62 U/L (73-393) L 07/06/20 01:25 Code Status & VTE Plan Code Status Full code VTE Prophylaxis Plan VTE Prophylaxis will be ordered: Yes PG Care Time/CCT Total # of Minutes Spent Total Time Spent with Patient: Total time spent is greater than 50% in coordination of care (as documented) at patient's floor/unit and/or counseling patient: Coding Level of Care Code 05649 OBS Care - Level 3 Diagnoses Acute respiratory failure with hypoxia J96.01 Multifocal pneumonia J18.9 Atrial fibrillation with RVR I48.91 Ischemic cardiomyopathy I25.5
[2020-07-06 03:47] LABS: Base Excess VBG 4.7 mEq/L; HCO3 VBG 31 mmol/L; Oxygen Saturation VBG < 60.0 %; PCO2 VBG 56 mmHg (38-50); PO2 VBG 23 mmHg; pH VBG 7.37 (7.36-7.41)
[2020-07-06] MEDS ORDERED: ONDANSETRON INJ 2 MG/ML 2 ML VIAL IV PRN (05:54)
[2020-07-06] MEDS ORDERED: ACETAMINOPHEN 325 MG TAB PO PRN (05:54)
[2020-07-06] MEDS ORDERED: CARBOHYDRATES FOR HYPOGLYCEMIA PO PRN (05:54)
[2020-07-06] MEDS ORDERED: NITROGLYCERIN SL 0.4 MG/TAB TAB SL PRN (05:54)
[2020-07-06] MEDS ORDERED: GLUCAGON FOR INJ 1 MG VIAL SQ PRN (05:54)
[2020-07-06] MEDS ORDERED: DEXTROSE 50% 50 ML SYRINGE IV PRN (05:54)
[2020-07-06] MEDS ORDERED: GLUCOSE 10 TABS/TUBE PO PRN (05:54)
[2020-07-06] MEDS ORDERED: GLUCOSE 40% GEL 15 GM TUBE PO PRN (05:54)
[2020-07-06] MEDS ORDERED: ALBUT/IPRATROP 3MG/0.5MG NEB 3 ML VIAL NEB PRN (06:19)
[2020-07-06] MEDS ORDERED: PHARMACY GLYCEMIC MGMT CONSULT PRN (06:38)
[2020-07-06] MEDS ORDERED: ALBUT/IPRATROP 3MG/0.5MG NEB 3 ML VIAL NEB SCH (07:00)
--- NOTE | 2020-07-06 07:00 | XRay Report ---
XR chest 1V portable HISTORY: 75 years-old Male recent covid, hemoptysis, hypoxia acute approximately. COVID Positive. COMPARISON: Chest radiograph 06/23/2020 TECHNIQUE: Portable AP view of the chest FINDINGS: Cardiac silhouette is enlarged. Bilateral reticular opacities are noted with persistent patchy bilate ral airspace opacities in a mid and lower lung zone predominant distribution, mildly progressed from comparison. Bones appear grossly intact. IMPRESSION: Mild worsening of the bilateral airspace opacities suggestive of ongoing pneumonia. ACT 112: Negative or not required by law. The above report was generated using voice recognition software. It may contain grammatical, syntax o r spelling errors. Electronically signed by: Jimmy Cruz M.D. 07/06/2020 6:59 AM
[2020-07-06] MEDS: AMIODARONE 200 MG TAB PO SCH ×2 (08:32→21:33)
[2020-07-06] MEDS: CLOPIDOGREL BISULFATE 75 MG TAB PO SCH (08:32)
[2020-07-06] MEDS: DOCUSATE SODIUM 100 MG CAP PO SCH (08:32)
[2020-07-06] MEDS: METOPROLOL SUCC 50MG EXT REL TAB PO SCH ×2 (08:32→21:32)
[2020-07-06] MEDS: ASPIRIN 81 MG ECTAB PO SCH (08:33)
[2020-07-06] MEDS: CALCIUM 600MG + VIT D 400 IU TAB PO SCH (08:33)
[2020-07-06] MEDS: BUMETANIDE 1 MG TAB PO SCH (08:33)
[2020-07-06] MEDS: BACLOFEN 10 MG TAB PO SCH ×2 (08:33→21:33)
[2020-07-06] MEDS: ISOSORBIDE MONO EXTENDED REL 30 MG TABCR PO SCH (08:33)
[2020-07-06] MEDS: allopurinoL 300 MG TAB PO SCH (08:34)
[2020-07-06] MEDS: ARTIFICIAL TEARS OP OINT 3.5 GM TUBE OP SCH ×4 (08:34→21:33)
[2020-07-06] MEDS: ENOXAPARIN INJ 40 MG/0.4 ML SYR SQ SCH (08:35)
[2020-07-06] MEDS: INSULIN ASPART 100 UNITS/ML 3 ML PEN SC SCH ×4 (08:50→21:00)
[2020-07-06] MEDS ORDERED: INSULIN HUMAN 70% NPH/30% REGULAR SQ SCH ×2 (09:00→21:00)
[2020-07-06] MEDS: INSULIN HUMAN NPH SC SCH ×2 (09:33→17:35)
--- NOTE | 2020-07-06 10:49 | Pharmacy Report ---
Pharmacy Glycemic Short Note 2 - Date of Service July 06, 2020 - Glycemic Short BSG Results (Last 24 hours): 07/06/20 07/06/20 01:25 07:41 Glucose 72 POC Glucose 97 OUTPATIENT ANTIDIABETIC REGIMEN: * Novolog 70/30 insulin - 25 units qAM + 30 units qPM * Regular insulin - sliding scale * A1c = 10.4% (06/19/20) ASSESSMENT: * 75 yo M who was previously admitted on 06/18/20 for COVID-19. He was discharge yesterday afternoon back to [facility] but then was re-admitted last evening for worsening shortness of breath. * Prior to discharge yesterday, patient had received 14 units of NPH with breakfast as well as 15 units of Novolog with breakfast and lunch. * BSGs prior to discharge were: 171-122-276 mg/dL * It is unknown what insulin patient received at [facility], if any * Upon readmission, his fasting BSG this AM was found to be 97 mg/dL which is on the lower end of his goal. * New risk factors for insulin resistance have emerged including being placed on vancomycin and aztreonam for a suspected bacterial pneumonia as well as being started on methylprednisolone 40 mg IV every 8 hours. * Despite low fasting BSG, planning on being aggressive with AM NPH insulin dosing in order to prevent steroid induced hyperglycemia throughout the evening. * Dinner NPH dosing will depend on BSG trends throughout the day. * During last admission, patient's lunch BSG was consistently much higher than any other BSG which may be due to what he was consuming for breakfast. * Will start with a strict CF/CR ACHS given the risk of post-prandial hyperglycemia with steroids on board. However, will consider tighter CR for breakfast if this trend continues. PLAN FOR INPATIENT GLYCEMIC CONTROL: * Basal insulin * NPH 20 units SQ with breakfast * NPH 10 - 20 units SQ with dinner per BSG - see eMAR for more details * Bolus insulin * NovoLog per scale ACHS or Q6hrs while NPO * Goal Range: Low 120 mg/dL - High 160 mg/dL * Correction Factor: 12 mg/dL/unit * Carb ratio of 1 unit per 4 grams CHO consumed PLAN FOR DISCHARGE: * HbA1c = 10.4% from 06/18/20 and goal HbA1c for this patient would be < 8%. * Continue with previous recommendations of Novolog 70/30 insulin - 30 units SQ qAM + 15 units SQ qPM as well as initiating Metformin 500 mg daily titrating upwards by 500 mg per week until goal dose of 1000 mg PO BIDM is reached. Vitamin B12 supplementation is recommended with long-term metformin use.
--- NOTE | 2020-07-06 10:58 | Pharmacy Report ---
Pharmacy Abx Initial Consult - Date of Service July 06, 2020 - Pharmacy Dosing Scope Date of Consult: 07/06/20 Consultation requested by: Dr. Wiggins Pharmacy is consulted to initiate Vancomycin IV dosing therapy, order appropriate labs and adjust drug dose/frequency. - Subjective The patient is a 75 year old M admitted on 07/06/20 02:59. - Objective Height: 6 ft 2 in Weight: 89.2 kg Vital Signs (Past 12hrs): Vital Signs Temp Pulse Pulse Resp BP BP Pulse Ox 07/06/20 07:56 37.1 C 72 16 114/69 90 07/06/20 07:33 77 18 98 07/06/20 06:11 36.5 C 88 26 H 105/61 92 07/06/20 06:01 78 07/06/20 05:56 36.5 C 26 H 105/61 92 07/06/20 05:32 36.7 C 07/06/20 05:31 80 24 100 07/06/20 05:30 78 21 133/81 96 07/06/20 05:00 75 28 H 112/80 99 07/06/20 04:30 79 30 H 128/77 07/06/20 04:00 76 28 H 129/85 99 07/06/20 03:30 71 21 118/74 84 L 07/06/20 03:00 72 22 112/69 95 07/06/20 02:30 75 31 H 132/75 98 07/06/20 02:00 75 25 H 112/71 97 07/06/20 01:30 75 25 H 117/76 96 07/06/20 01:03 37.6 C H 75 22 118/75 97 Lab Results (24hrs): Laboratory Tests (24 Hours) 07/06/20 07/06/20 01:25 01:25 WBC 9.37 Neut # (Auto) 8.07 H Creatinine 1.51 H D Est Cr Clr Drug Dosing 55.2 Micro Results: 07/06/20 01:42 Aerobic Blood Culture - Pending Blood Anaerobic Blood Culture - Pending 07/06/20 01:25 Aerobic Blood Culture - Pending Blood Anaerobic Blood Culture - Pending - Risk Factors for Resistance * Resident at [facility] * Hospitalization for 48 hours or more within the past 90 days * Current hospitalization > 5 days * Antimicrobial use within the last 90 days: * Azithromycin, Doxycycline, Ceftriaxone - Assessment & Plan Assessment 75 year old M admitted from 06/18/20 until 07/05/20 for COVID-19. * Patient was discharge yesterday and returned overnight for worsening shortness of breath. * He did require 15 L non-rebreather upon admission and is now requiring 10 L oxymask. * Low grade fever x 1 upon admission of 37.6oC. No leukocytosis. Lactate 2.9 and down to 2.6 following fluids. Renal fxn elevated from baseline. * Blood cultures are pending. Starting Vancomycin and Aztreonam for pulmonary infection which is appropriate given recent long hospitalization. Plan Vancomycin for treatment of suspected bacterial pneumonia Vancomycin IV * Loading dose: 2250 mg (25 mg/kg) * Maintenance dose: 1250 mg IV (14 mg/kg) every 12 hours * Goal trough level: 15 to 20 mcg/mL * Trough level ordered for 07/07/20 Aztreonam (pharmacy not consulted) * 2 g IV every 12 hours Pharmacy will continue to follow and will adjust dose/frequency as necessary. Thank you.
[2020-07-06] MEDS: methylPREDNISolone 40 MG in SYRINGE 0 ML IV SCH ×2 (11:57→21:51)
[2020-07-06] MEDS: AZTREONAM 2,000 MG in DEXTROSE 5% 100 ML IV SCH ×2 (11:57→23:14)
[2020-07-06] MEDS: VANCOMYCIN HCL 1,250 MG in SODIUM CHLORIDE 0.9% 250 ML IV SCH (17:34)
[2020-07-06] MEDS: ATORVASTATIN 10 MG TAB PO SCH (21:32)
[2020-07-06] MEDS: DULoxetine HCL 30 MG CAP PO SCH (21:33)
[2020-07-07] MEDS: methylPREDNISolone 40 MG in SYRINGE 0 ML IV SCH ×3 (04:36→20:16)
[2020-07-07] MEDS: INSULIN ASPART 100 UNITS/ML 3 ML PEN SC SCH ×5 (04:56→21:22)
--- NOTE | 2020-07-07 06:23 | Electrocardiogram Report ---
Test Reason : Blood Pressure : / mmHG Vent. Rate : 077 BPM Atrial Rate : 077 BPM P-R Int : 154 ms QRS Dur : 108 ms QT Int : 422 ms P-R-T Axes : 022 020 075 degrees QTc Int : 477 ms Normal sinus rhythm Nonspecific T wave abnormality When compared with ECG of 21-JUN-2020 12:54, Premature ventricular complexes are no longer Present Nonspecific T wave abnormality no longer evident in Inferior leads Nonspecific T wave abnormality, worse in Lateral leads Confirmed by Addi Hutchins ([id number]) on 07/07/2020 6:23:24 AM Referred By: Cheyenne MERRILL Confirmed By:Addi Hutchins
[2020-07-07 06:58] LABS: Hematocrit (blood only) 35.3 % (42-52); Hemoglobin 11.5 g/dL (14.0-18.0); Immature Granulocytes # (auto) 0.02 K/uL (0.00-0.02); Immature Granulocytes % (auto) 0.2 %; Lymphocytes # (auto) 0.39 K/uL (1.2-3.4); Lymphocytes % (auto) 3.9 %; Mean Corpuscular Hemoglobin 27.3 pg (25-34); Mean Corpuscular Hgb Conc 32.6 g/dL (32-36); Mean Corpuscular Volume 83.8 fL (80-100); Mean Platelet Volume 9.6 fL (7.4-10.4); Monocytes # (auto) 0.27 K/uL (0.11-0.59); Monocytes % (auto) 2.7 %; Neutrophils # (auto) 9.34 K/uL (1.4-6.5); Neutrophils % (auto) 93.2 %; Platelet Count 294 K/uL (130-400); RDW Coefficient of Variation 16.5 % (11.5-14.5); RDW Standard Deviation 49.2 fL (36.4-46.3); Red Blood Count 4.21 M/uL (4.7-6.1); White Blood Count 10.02 K/uL (4.8-10.8)
[2020-07-07 07:23] LABS: Albumin Level 2.1 gm/dl (3.4-5.0); BUN Creatinine Ratio 27.2 (10-20); Calcium 8.8 mg/dl (8.5-10.1); Creatinine Clr Calc Pharmacy 64.2 ml/min; Potassium 4.3 mmol/L (3.5-5.1)
[2020-07-07 07:29] LABS: Albumin Globulin Ratio 0.4 (0.9-2); Bilirubin,Total 0.3 mg/dl (0.2-1); Globulin 5.1 gm/dl (2.5-4.0); Total Protein 7.2 gm/dl (6.4-8.2)
[2020-07-07] MEDS: BACLOFEN 10 MG TAB PO SCH ×2 (08:07→20:16)
[2020-07-07] MEDS: AMIODARONE 200 MG TAB PO SCH ×2 (08:07→20:16)
[2020-07-07] MEDS: METOPROLOL SUCC 50MG EXT REL TAB PO SCH ×2 (08:07→20:16)
[2020-07-07] MEDS: DOCUSATE SODIUM 100 MG CAP PO SCH (08:07)
[2020-07-07] MEDS: INSULIN HUMAN NPH SC SCH ×2 (08:28→17:58)
[2020-07-07] MEDS ORDERED: BUMETANIDE 1 MG in SYRINGE 0 ML IV ONE (09:00)
[2020-07-07] MEDS: VANCOMYCIN HCL 1,250 MG in SODIUM CHLORIDE 0.9% 250 ML IV SCH ×2 (09:36→21:17)
[2020-07-07] MEDS: CALCIUM 600MG + VIT D 400 IU TAB PO SCH (09:37)
[2020-07-07] MEDS: CLOPIDOGREL BISULFATE 75 MG TAB PO SCH (09:37)
[2020-07-07] MEDS: ASPIRIN 81 MG ECTAB PO SCH (09:37)
[2020-07-07] MEDS: allopurinoL 300 MG TAB PO SCH (09:37)
[2020-07-07] MEDS: ISOSORBIDE MONO EXTENDED REL 30 MG TABCR PO SCH (09:38)
[2020-07-07] MEDS: ARTIFICIAL TEARS OP OINT 3.5 GM TUBE OP SCH ×4 (09:50→20:17)
[2020-07-07] MEDS: BUMETANIDE 1 MG TAB PO SCH (10:25)
[2020-07-07] MEDS: ENOXAPARIN INJ 40 MG/0.4 ML SYR SQ SCH (10:25)
[2020-07-07] MEDS: AZTREONAM 2,000 MG in DEXTROSE 5% 100 ML IV SCH (11:45)
--- NOTE | 2020-07-07 13:41 | Pharmacy Report ---
Pharmacy Glycemic Short Note 2 - Date of Service July 07, 2020 - Glycemic Short BSG Results (Last 24 hours): 07/06/20 07/06/20 07/07/20 16:23 20:17 04:43 Glucose POC Glucose 288 H 154 H 223 H 07/07/20 07/07/20 07/07/20 06:44 07:49 11:27 Glucose 212 H POC Glucose 188 H 220 H OUTPATIENT ANTIDIABETIC REGIMEN: * Novolog 70/30 insulin - 25 units qAM + 30 units qPM * Regular insulin - sliding scale * A1c = 10.4% (06/19/20) ASSESSMENT: 07/07/20: * Mr Chavez received 86 units of insulin yesterday, with BSGs ranging from 72- 288mg/dL. * 40 units of basal * 46 units of prandial/correctional * Pt has been hyperglycemic, most likely d/t IV steroids. * NPH dose increased slightly, as fasting BSG was elevated this morning. * Carb ratio also tightened slightly this evening d/t elevated pre-lunch BSG. 07/06 * 75 yo M who was previously admitted on 06/18/20 for COVID-19. He was discharge yesterday afternoon back to [facility] but then was re-admitted last evening for worsening shortness of breath. * Prior to discharge yesterday, patient had received 14 units of NPH with breakfast as well as 15 units of Novolog with breakfast and lunch. * BSGs prior to discharge were: 171-122-276 mg/dL * It is unknown what insulin patient received at [facility], if any * Upon readmission, his fasting BSG this AM was found to be 97 mg/dL which is on the lower end of his goal. * New risk factors for insulin resistance have emerged including being placed on vancomycin and aztreonam for a suspected bacterial pneumonia as well as being started on methylprednisolone 40 mg IV every 8 hours. * Despite low fasting BSG, planning on being aggressive with AM NPH insulin dosing in order to prevent steroid induced hyperglycemia throughout the evening. * Dinner NPH dosing will depend on BSG trends throughout the day. * During last admission, patient's lunch BSG was consistently much higher than any other BSG which may be due to what he was consuming for breakfast. * Will start with a strict CF/CR ACHS given the risk of post-prandial hyperglycemia with steroids on board. However, will consider tighter CR for breakfast if this trend continues. PLAN FOR INPATIENT GLYCEMIC CONTROL: * Basal insulin * NPH 20 units SQ with breakfast * NPH 20-25 units SQ with dinner per BSG - see eMAR for more details * Bolus insulin * NovoLog per scale ACHS or Q6hrs while NPO * Goal Range: Low 120 mg/dL - High 160 mg/dL * Correction Factor: 12 mg/dL/unit * Carb ratio of 1 unit per 3.5 grams CHO consumed PLAN FOR DISCHARGE: * HbA1c = 10.4% from 06/18/20 and goal HbA1c for this patient would be < 8%. * Continue with previous recommendations of Novolog 70/30 insulin - 30 units SQ qAM + 15 units SQ qPM as well as initiating Metformin 500 mg daily titrating upwards by 500 mg per week until goal dose of 1000 mg PO BIDM is reached. Vitamin B12 supplementation is recommended with long-term metformin use.
[2020-07-07] MEDS ORDERED: VANCOMYCIN TROUGH ONE (15:30)
--- NOTE | 2020-07-07 15:46 | Hospitalist Progress Note ---
Date of Service July 07, 2020 Assessment & Plan (1) Acute respiratory failure with hypoxia: Acute respiratory failure with hypoxia/multifocal pneumonia/worsening fibrosis- also, likely a component of acute on chronic systolic heart failure Most recently treated for COVID-19 pneumonia during admission from 06/18- 07/05/2020. continue vancomycin IV Aztreonam 2 g IV every 12 hours Methylprednisolone 40 mg IV every 8 hours gave extra Bumex 1mg IV this morning, great response Duonebs every 4 hours while awake and every 2 hours when necessary. down to 6L NC, breathing comfortably, no distress at all expect oxygen requirements to improve further with diuresis (2) Multifocal pneumonia: See above just recovered from COVID cover with Aztreonam, Vanco (3) Atrial fibrillation with RVR: History of atrial fibrillation with RVR/ischemic cardiomyopathy/hypertension- Continue amiodarone 200 mg p.o. twice daily, aspirin 81 mg daily, bumetanide 1 mg p.o. daily, clopidogrel 75 mg p.o. daily, isosorbide mononitrate 30 mg p.o. daily and metoprolol succinate 50 mg p.o. twice daily Hold lisinopril due to MERRILL per cardiology last visit, no need for anticoagulation as this was isolated event (4) Ischemic cardiomyopathy: See above (5) Acute on chronic systolic ACC/AHA stage C congestive heart failure: volume overloaded on exam great response to Bumex 1mg IV in addition to 1mg PO he had taken repeat tomorrow BMP is stable, recheck Admission and Anticipated Discharge Date Admission Date: July 06, 2020 Subjective gave patient Bumex 1mg IV in addition to the 1mg PO he already took this morning, very effective diuresis, making clear urine breathing better, titrated down to 6L NC reviewed chart, reviewed labs WBC 10k, Hb 11, plts 290 Na 130, Cr 1.1, K 4.3 patient is eating well, no GI symptoms, no chest pain, no fever/chills minimal cough Review of Systems Review of Systems: All systems reviewed & are unremarkable except as noted in Subjective Physical Exam Constitutional: well developed, well nourished, well groomed and comfortable; no acute distress Neck: trachea midline, no thyromegaly Respiratory: normal respiratory effort, lungs clear to auscultation Cardiovascular: RRR, no murmur, no edema Gastrointestinal (Abdomen): normal bowel sounds, soft, nontender, no hepatosplenomegaly Musculoskeletal: no cyanosis or clubbing, extremities motor strength 5/5 Skin: no rashes, warm and dry Neurologic: patellar DTR's 2+ bilat, sensation intact and PERRL, EOMI, accommodation nl, no face palsy, no dysarthria Psychiatric: A+Ox3, euthymic affect Lymphatic: no cervical or axillary lymphadenopathy Results & Data Results & Data ([facility]) Vital Signs (Past 12 Hours) Vital Signs Temp Pulse Pulse Resp BP Pulse Ox 07/07/20 12:11 36.8 C 77 20 131/69 92 07/07/20 10:12 91 07/07/20 08:47 74 07/07/20 07:52 37.1 C 73 20 121/75 88 L 07/07/20 04:34 36.9 C 73 18 130/68 91 Laboratory Results Laboratory Results - last 24 hr 07/06/20 07/06/20 07/06/20 16:23 20:17 21:50 WBC RBC Hgb Hct MCV MCH MCHC RDW Std Deviation RDW Coeff of Maria [place]upe Plt Count MPV Immature Gran % (Auto) Neut % (Auto) Lymph % (Auto) [place] % (Auto) Eos % (Auto) Baso % (Auto) Neut # (Auto) Lymph # (Auto) [place] # (Auto) Eos # (Auto) Baso # (Auto) Immature Gran # (Auto) Sodium Potassium Chloride Carbon Dioxide Anion Gap BUN Creatinine Est Cr Clr Drug Dosing Est GFR ( Amer) Est GFR (Non-Af Amer) BUN/Creatinine Ratio Glucose POC Glucose 288 H 154 H Calcium Total Bilirubin AST ALT Alkaline Phosphatase Total Protein Albumin Globulin Albumin/Globulin Ratio Nasal Screen MRSA (PCR) Negative Vancomycin Trough 07/07/20 07/07/20 07/07/20 04:43 06:44 06:44 WBC 10.02 RBC 4.21 L Hgb 11.5 L Hct 35.3 L MCV 83.8 MCH 27.3 MCHC 32.6 RDW Std Deviation 49.2 H RDW Coeff of Maria Guadalupe 16.5 H Plt Count 294 MPV 9.6 Immature Gran % (Auto) 0.2 Neut % (Auto) 93.2 Lymph % (Auto) 3.9 [place] % (Auto) 2.7 Eos % (Auto) 0.0 Baso % (Auto) 0.0 Neut # (Auto) 9.34 H Lymph # (Auto) 0.39 L [place] # (Auto) 0.27 Eos # (Auto) 0.00 Baso # (Auto) 0.00 Immature Gran # (Auto) 0.02 Sodium 130 L Potassium 4.3 Chloride 99 Carbon Dioxide 24 Anion Gap 7.0 BUN 31 H Creatinine 1.12 D Est Cr Clr Drug Dosing 64.2 Est GFR ( Amer) 73.0 Est GFR (Non-Af Amer) 63.0 BUN/Creatinine Ratio 27.2 H Glucose 212 H POC Glucose 223 H Calcium 8.8 Total Bilirubin 0.3 AST 29 ALT 43 Alkaline Phosphatase 203 H Total Protein 7.2 Albumin 2.1 L Globulin 5.1 H Albumin/Globulin Ratio 0.4 L Nasal Screen MRSA (PCR) Vancomycin Trough 07/07/20 07/07/20 07/07/20 07:49 11:27 15:30 WBC RBC Hgb Hct MCV MCH MCHC RDW Std Deviation RDW Coeff of [place] Plt Count MPV Immature Gran % (Auto) Neut % (Auto) Lymph % (Auto) [place] % (Auto) Eos % (Auto) Baso % (Auto) Neut # (Auto) Lymph # (Auto) [place] # (Auto) Eos # (Auto) Baso # (Auto) Immature Gran # (Auto) Sodium Potassium Chloride Carbon Dioxide Anion Gap BUN Creatinine Est Cr Clr Drug Dosing Est GFR ( Amer) Est GFR (Non-Af Amer) BUN/Creatinine Ratio Glucose POC Glucose 188 H 220 H Calcium Total Bilirubin AST ALT Alkaline Phosphatase Total Protein Albumin Globulin Albumin/Globulin Ratio Nasal Screen MRSA (PCR) Vancomycin Trough Pending Medications Administered Current Inpatient Medications Acetaminophen (Acetaminophen 325 Mg Tab) 650 mg PO Q4H PRN PRN Reason: Pain or Fever Stop: 08/05/20 05:53 Albuterol (Albut/Ipratrop 3mg/0.5mg Neb 3 Ml Vial) 3 ml NEB Q2H PRN PRN Reason: Shortness Of Breath Or Wheezing Stop: 08/05/20 06:18 Allopurinol (Allopurinol 300 Mg Tab) 150 mg PO QAM [facility] Stop: 08/05/20 08:59 Last Admin: 07/07/20 09:37 Dose: 150 mg Documented by: Amiodarone HCl (Amiodarone 200 Mg Tab) 200 mg PO BID NICHOLAS Stop: 08/05/20 08:59 Last Admin: 07/07/20 08:07 Dose: 200 mg Documented by: Aspirin (Aspirin 81 Mg Ectab) 81 mg PO QAM NICHOLAS Stop: 08/05/20 08:59 Last Admin: 07/07/20 09:37 Dose: 81 mg Documented by: Atorvastatin Calcium (Atorvastatin 10 Mg Tab) 10 mg PO HS NICHOLAS Stop: 08/05/20 20:59 Last Admin: 07/06/20 21:32 Dose: 10 mg Documented by: Baclofen (Baclofen 10 Mg Tab) 10 mg PO BID NICHOLAS Stop: 08/05/20 08:59 Last Admin: 07/07/20 08:07 Dose: 10 mg Documented by: Bumetanide (Bumetanide 1 Mg Tab) 1 mg PO DAILY NICHOLAS Stop: 08/05/20 08:59 Last Admin: 07/07/20 10:25 Dose: 1 mg Documented by: Clopidogrel Bisulfate (Clopidogrel Bisulfate 75 Mg Tab) 75 mg PO DAILY [facility] Stop: 08/05/20 08:59 Last Admin: 07/07/20 09:37 Dose: 75 mg Documented by: Dextrose (Dextrose 50% 50 Ml Syringe) 25 - 50 ml IV UD PRN; Protocol PRN Reason: Hypoglycemia Protocol Stop: 08/05/20 05:53 Docusate Sodium (Docusate Sodium 100 Mg Cap) 200 mg PO DAILY NICHOLAS Stop: 08/05/20 08:59 Last Admin: 07/07/20 08:07 Dose: 200 mg Documented by: Duloxetine HCl (Duloxetine Hcl 30 Mg Cap) 30 mg PO HS [facility] Stop: 08/05/20 20:59 Last Admin: 07/06/20 21:33 Dose: 30 mg Documented by: Enoxaparin Sodium (Enoxaparin Inj 40 Mg/0.4 Ml Syr) 40 mg SQ Q24H NICHOLAS Stop: 08/05/20 08:59 Last Admin: 07/07/20 10:25 Dose: 40 mg Documented by: Glucagon (Glucagon For Inj 1 Mg Vial) 1 mg SQ UD PRN; Protocol PRN Reason: Hypoglycemia Protocol Stop: 08/05/20 05:53 Glucose (Glucose 10 Tabs/Tube) 4 - 8 tabs PO UD PRN; Protocol PRN Reason: Hypoglycemia Protocol Stop: 08/05/20 05:53 Glucose (Glucose 40% Gel 15 Gm Tube) 15 - 30 gm PO UD PRN; Protocol PRN Reason: Hypoglycemia Protocol Stop: 08/05/20 05:53 Aztreonam 2,000 mg/ Dextrose 110 mls @ 100 mls/hr IV Q12H [facility]; Protocol Stop: 07/13/20 11:59 Last Infusion: 07/07/20 13:03 Dose: Infused Documented by: Vancomycin HCl 1,250 mg/ (Sodium Chloride) 275 mls @ 200 mls/hr IV DAILY [facility]; Protocol Stop: 07/13/20 15:59 Last Infusion: 07/07/20 11:00 Dose: Infused Documented by: Methylprednisolone 40 mg/ (Syringe) 0.64 mls @ 1.5 mls/min IV Q8H [facility] Stop: 08/05/20 11:59 Last Admin: 07/07/20 13:53 Dose: 1.5 mls/min Documented by: Insulin Aspart (Insulin Aspart 100 Units/Ml 3 Ml Pen) 0 units SC ACHS [facility]; Protocol Stop: 08/05/20 07:29 Last Admin: 07/07/20 12:06 Dose: 12 units Documented by: Insulin Human NPH (Insulin Human Nph) 20 units SC QDB [facility]; Protocol Stop: 08/05/20 08:44 Last Admin: 07/07/20 08:28 Dose: 20 units Documented by: Insulin Human NPH (Insulin Human Nph) 0 units SC QDD [facility]; Protocol Stop: 08/05/20 16:29 Last Admin: 07/06/20 17:35 Dose: 20 units Documented by: Isosorbide Mononitrate (Isosorbide [place] Extended Rel 30 Mg Tabcr) 30 mg PO DAILY NICHOLAS Stop: 08/05/20 08:59 Last Admin: 07/07/20 09:38 Dose: 30 mg Documented by: Metoprolol Succinate (Metoprolol Succ 50mg Ext Rel Tab) 50 mg PO BID NICHOLAS Stop: 08/05/20 08:59 Last Admin: 07/07/20 08:07 Dose: 50 mg Documented by: Miscellaneous (Carbohydrates For Hypoglycemia ) 15 - 30 gm PO UD PRN PRN Reason: Hypoglycemia Protocol Stop: 08/05/20 05:53 Miscellaneous Information (Vancomycin Consult Active) 1 ea N/A UD PRN PRN Reason: Consult Stop: 08/05/20 05:53 Miscellaneous Information (Pharmacy Glycemic Mgmt Consult) 1 ea N/A UD PRN PRN Reason: Consult Stop: 08/05/20 06:37 Multi-Ingredient Cream (Artificial Tears Op Oint 3.5 Gm Tube) 1 appln OP QID [facility] Stop: 08/05/20 08:59 Last Admin: 07/07/20 11:47 Dose: 1 appln Documented by: Multivitamins/Minerals (Calcium 600mg + Vit D 400 Iu Tab) 1 tab PO DAILY [facility] Stop: 08/05/20 08:59 Last Admin: 07/07/20 09:37 Dose: 1 tab Documented by: Nitroglycerin (Nitroglycerin Sl 0.4 Mg/Tab Tab) 0.4 mg SL UD PRN PRN Reason: Chest Pain Stop: 08/05/20 05:53 Ondansetron HCl (Ondansetron Inj 2 Mg/Ml 2 Ml Vial) 4 mg IV Q6H PRN PRN Reason: Nausea Stop: 08/05/20 05:53 PG Care Time/CCT Total # of Minutes Spent Total Time Spent with Patient: Total time spent is greater than 50% in coordination of care (as documented) at patient's floor/unit and/or counseling patient: Coding Level of Care Code 04816 Subseq Hosp Care Lvl 3 Diagnoses Acute respiratory failure with hypoxia J96.01 Multifocal pneumonia J18.9 Atrial fibrillation with RVR I48.91 Ischemic cardiomyopathy I25.5 Acute on chronic systolic ACC/AHA stage C congestive heart failure I50.23
[2020-07-07] MEDS: ATORVASTATIN 10 MG TAB PO SCH (20:16)
[2020-07-07] MEDS: DULoxetine HCL 30 MG CAP PO SCH (20:16)
[2020-07-08] MEDS: AZTREONAM 2,000 MG in DEXTROSE 5% 100 ML IV SCH ×3 (00:34→23:18)
[2020-07-08] MEDS: methylPREDNISolone 40 MG in SYRINGE 0 ML IV SCH ×3 (04:59→20:37)
[2020-07-08] MEDS ORDERED: VANCOMYCIN TROUGH ONE (08:30)
[2020-07-08 08:42] LABS: Basophils # (auto) 0.01 K/uL (0-0.2); Basophils % (auto) 0.1 %; Hematocrit (blood only) 36.4 % (42-52); Hemoglobin 11.8 g/dL (14.0-18.0); Immature Granulocytes # (auto) 0.02 K/uL (0.00-0.02); Immature Granulocytes % (auto) 0.2 %; Lymphocytes # (auto) 0.39 K/uL (1.2-3.4); Lymphocytes % (auto) 4.3 %; Mean Corpuscular Hemoglobin 27.5 pg (25-34); Mean Corpuscular Hgb Conc 32.4 g/dL (32-36); Mean Corpuscular Volume 84.8 fL (80-100); Mean Platelet Volume 9.7 fL (7.4-10.4); Monocytes # (auto) 0.25 K/uL (0.11-0.59); Monocytes % (auto) 2.7 %; Neutrophils # (auto) 8.47 K/uL (1.4-6.5); Neutrophils % (auto) 92.7 %; Platelet Count 325 K/uL (130-400); RDW Coefficient of Variation 16.6 % (11.5-14.5); RDW Standard Deviation 50.3 fL (36.4-46.3); Red Blood Count 4.29 M/uL (4.7-6.1); White Blood Count 9.14 K/uL (4.8-10.8)
[2020-07-08] MEDS: allopurinoL 300 MG TAB PO SCH (08:53)
[2020-07-08] MEDS: VANCOMYCIN HCL 1,250 MG in SODIUM CHLORIDE 0.9% 250 ML IV SCH (08:53)
[2020-07-08] MEDS: ASPIRIN 81 MG ECTAB PO SCH (08:54)
[2020-07-08] MEDS: ISOSORBIDE MONO EXTENDED REL 30 MG TABCR PO SCH (08:54)
[2020-07-08] MEDS: DOCUSATE SODIUM 100 MG CAP PO SCH (08:54)
[2020-07-08] MEDS: ENOXAPARIN INJ 40 MG/0.4 ML SYR SQ SCH (08:54)
[2020-07-08] MEDS: CALCIUM 600MG + VIT D 400 IU TAB PO SCH (08:54)
[2020-07-08] MEDS: CLOPIDOGREL BISULFATE 75 MG TAB PO SCH (08:54)
[2020-07-08] MEDS: BACLOFEN 10 MG TAB PO SCH ×2 (08:55→20:36)
[2020-07-08] MEDS: ARTIFICIAL TEARS OP OINT 3.5 GM TUBE OP SCH ×4 (08:56→20:41)
[2020-07-08] MEDS: AMIODARONE 200 MG TAB PO SCH ×2 (08:56→20:36)
[2020-07-08] MEDS: METOPROLOL SUCC 50MG EXT REL TAB PO SCH ×2 (08:56→20:36)
[2020-07-08 09:00] LABS: Albumin Level 2.1 gm/dl (3.4-5.0); Calcium 9.2 mg/dl (8.5-10.1); Est GFR (African American) 75.5; Est GFR (Non-African American) 65.1; Potassium 4.2 mmol/L (3.5-5.1)
[2020-07-08] MEDS: INSULIN HUMAN NPH SC SCH ×2 (09:00→16:48)
[2020-07-08] MEDS: INSULIN ASPART 100 UNITS/ML 3 ML PEN SC SCH ×4 (09:00→20:48)
[2020-07-08] MEDS ORDERED: BUMETANIDE 2 MG in SYRINGE 0 ML IV SCH (09:00)
[2020-07-08 09:03] LABS: Albumin Globulin Ratio 0.4 (0.9-2); Bilirubin,Total 0.3 mg/dl (0.2-1); Globulin 5.3 gm/dl (2.5-4.0); Total Protein 7.4 gm/dl (6.4-8.2)
--- NOTE | 2020-07-08 14:15 | Pharmacy Report ---
Pharmacy Glycemic Short Note 2 - Date of Service July 08, 2020 - Glycemic Short BSG Results (Last 24 hours): 07/07/20 07/07/20 07/08/20 16:27 20:12 07:44 Glucose POC Glucose 150 H 209 H 225 H 07/08/20 07/08/20 08:17 11:19 Glucose 222 H POC Glucose 234 H OUTPATIENT ANTIDIABETIC REGIMEN: * Novolog 70/30 insulin - 25 units qAM + 30 units qPM * Regular insulin - sliding scale * A1c = 10.4% (06/19/20) ASSESSMENT: 07/08/20: * Pt received 112 units of insulin yesterday, with BSGs ranging from 150- 223mg/dL. * 40 units of basal insulin (NPH) * 72 units of prandial/correctional insulin * Steroids are being tapered at this time. SoluMedrol q8h --> q12h today, with transition to daily prednisone tomorrow. * Expect glycemic control to improve as steroids taper. * NPH was increased slightly today and carb coverage was tightened last evening. Hesitate to make any further changes today, with upcoming steroid reduction. 07/07 * Mr Chavez received 86 units of insulin yesterday, with BSGs ranging from 72- 288mg/dL. * 40 units of basal * 46 units of prandial/correctional * Pt has been hyperglycemic, most likely d/t IV steroids. * NPH dose increased slightly, as fasting BSG was elevated this morning. * Carb ratio also tightened slightly this evening d/t elevated pre-lunch BSG. 07/06 * 75 yo M who was previously admitted on 06/18/20 for COVID-19. He was discharge yesterday afternoon back to [facility] but then was re-admitted last evening for worsening shortness of breath. * Prior to discharge yesterday, patient had received 14 units of NPH with break fast as well as 15 units of Novolog with breakfast and lunch. * BSGs prior to discharge were: 171-122-276 mg/dL * It is unknown what insulin patient received at [facility], if any * Upon readmission, his fasting BSG this AM was found to be 97 mg/dL which is on the lower end of his goal. * New risk factors for insulin resistance have emerged including being placed on vancomycin and aztreonam for a suspected bacterial pneumonia as well as being started on methylprednisolone 40 mg IV every 8 hours. * Despite low fasting BSG, planning on being aggressive with AM NPH insulin dosing in order to prevent steroid induced hyperglycemia throughout the evening. * Dinner NPH dosing will depend on BSG trends throughout the day. * During last admission, patient's lunch BSG was consistently much higher than any other BSG which may be due to what he was consuming for breakfast. * Will start with a strict CF/CR ACHS given the risk of post-prandial hyperglycemia with steroids on board. However, will consider tighter CR for breakfast if this trend continues. PLAN FOR INPATIENT GLYCEMIC CONTROL: * Basal insulin * NPH 25 units SQ with breakfast * NPH 20-25 units SQ with dinner per BSG - see eMAR for more details * Bolus insulin * NovoLog per scale ACHS or Q6hrs while NPO * Goal Range: Low 120 mg/dL - High 160 mg/dL * Correction Factor: 12 mg/dL/unit * Carb ratio of 1 unit per 3.5 grams CHO consumed PLAN FOR DISCHARGE: * HbA1c = 10.4% from 06/18/20 and goal HbA1c for this patient would be < 8%. * Continue with previous recommendations of Novolog 70/30 insulin - 30 units SQ qAM + 15 units SQ qPM as well as initiating Metformin 500 mg daily titrating upwards by 500 mg per week until goal dose of 1000 mg PO BIDM is reached. Vitamin B12 supplementation is recommended with long-term metformin use.
--- NOTE | 2020-07-08 15:51 | Hospitalist Progress Note ---
Date of Service July 08, 2020 Assessment & Plan (1) Acute respiratory failure with hypoxia: Acute respiratory failure with hypoxia/multifocal pneumonia/worsening fibrosis- also, likely a component of acute on chronic systolic heart failure Most recently treated for COVID-19 pneumonia during admission from 06/18- 07/05/2020. stop Vancomycin Aztreonam 2 g IV every 12 hours Methylprednisolone 40 mg IV every 12 hour today, change to Prednisone 40mg PO daily tomorrow Bumex 2mg IV BID 1700 starting today Duonebs every 4 hours while awake and every 2 hours when necessary. down to 5L NC, breathing comfortably, no distress at all expect oxygen requirements to improve further with diuresis (2) Multifocal pneumonia: See above just recovered from COVID cover with Aztreonam, can stop Vanco continue steroids, change to Prednisone 40mg daily tomorrow, long taper (3) Atrial fibrillation with RVR: History of atrial fibrillation with RVR/ischemic cardiomyopathy/hypertension- Continue amiodarone 200 mg p.o. twice daily, aspirin 81 mg daily, bumetanide 1 mg p.o. daily, clopidogrel 75 mg p.o. daily, isosorbide mononitrate 30 mg p.o. daily and metoprolol succinate 50 mg p.o. twice daily Hold lisinopril as BP low normal, resume when hypertensive per cardiology last visit, no need for anticoagulation as this was isolated event (4) Ischemic cardiomyopathy: See above (5) Acute on chronic systolic ACC/AHA stage C congestive heart failure: volume overloaded on exam great response to Bumex 1mg IV in addition to 1mg PO on 07/07 increase to Bumex 2mg IV BID Cr and K are stable fluid restriction to 1500mL daily Admission and Anticipated Discharge Date Admission Date: July 06, 2020 Subjective patient feeling better, making a lot of urine with Bumex 2mg IV breathing easier, no cough eating really well, drinking fluids he has had a BM recently labs show WBC normal, BUN 31, Cr 1.09, K normal Review of Systems Review of Systems: All systems reviewed & are unremarkable except as noted in Subjective Respiratory: + dyspnea on exertion; no cough and no dyspnea Cardiovascular: no chest pain and no edema Gastrointestinal: no abdominal pain, no nausea, no vomiting, no constipation and no diarrhea/loose stools Physical Exam Constitutional: well developed, well nourished, well groomed and comfortable; no acute distress Neck: trachea midline, no thyromegaly Respiratory: normal respiratory effort, lungs clear to auscultation Cardiovascular: RRR, no murmur, no edema Gastrointestinal (Abdomen): normal bowel sounds, soft, nontender, no hepatosplenomegaly Musculoskeletal: no cyanosis or clubbing, extremities motor strength 5/5 Skin: no rashes, warm and dry Neurologic: patellar DTR's 2+ bilat, sensation intact and PERRL, EOMI, accommodation nl, no face palsy, no dysarthria Psychiatric: A+Ox3, euthymic affect Lymphatic: no cervical or axillary lymphadenopathy Results & Data Results & Data ([facility]) Vital Signs (Past 12 Hours) Vital Signs Temp Pulse Pulse Resp BP Pulse Ox Pulse Ox 07/08/20 15:16 84 L 07/08/20 11:35 36.7 C 64 18 112/68 95 07/08/20 09:51 63 07/08/20 07:57 36.4 C L 65 18 120/75 96 Laboratory Results Laboratory Results - last 24 hr 07/07/20 07/07/20 07/07/20 15:30 16:27 20:12 WBC RBC Hgb Hct MCV MCH MCHC RDW Std Deviation RDW Coeff of Maria Guadalupe Plt Count MPV Immature Gran % (Auto) Neut % (Auto) Lymph % (Auto) Bonner % (Auto) Eos % (Auto) Baso % (Auto) Neut # (Auto) Lymph # (Auto) Bonner # (Auto) Eos # (Auto) Baso # (Auto) Immature Gran # (Auto) Sodium Potassium Chloride Carbon Dioxide Anion Gap BUN Creatinine Est Cr Clr Drug Dosing Est GFR ( Amer) Est GFR (Non-Af Amer) BUN/Creatinine Ratio Glucose POC Glucose 150 H 209 H Calcium Total Bilirubin AST ALT Alkaline Phosphatase Total Protein Albumin Globulin Albumin/Globulin Ratio Vancomycin Trough 20.2 07/08/20 07/08/20 07/08/20 07:44 08:17 08:17 WBC 9.14 RBC 4.29 L Hgb 11.8 L Hct 36.4 L MCV 84.8 MCH 27.5 MCHC 32.4 RDW Std Deviation 50.3 H RDW Coeff of Maria Guadalupe 16.6 H Plt Count 325 MPV 9.7 Immature Gran % (Auto) 0.2 Neut % (Auto) 92.7 Lymph % (Auto) 4.3 Bonner % (Auto) 2.7 Eos % (Auto) 0.0 Baso % (Auto) 0.1 Neut # (Auto) 8.47 H Lymph # (Auto) 0.39 L Bonner # (Auto) 0.25 Eos # (Auto) 0.00 Baso # (Auto) 0.01 Immature Gran # (Auto) 0.02 Sodium 135 L Potassium 4.2 Chloride 102 Carbon Dioxide 28 Anion Gap 6.0 BUN 31 H Creatinine 1.09 Est Cr Clr Drug Dosing 66.0 Est GFR ( Amer) 75.5 Est GFR (Non-Af Amer) 65.1 BUN/Creatinine Ratio 28.0 H Glucose 222 H POC Glucose 225 H Calcium 9.2 Total Bilirubin 0.3 AST 28 ALT 48 Alkaline Phosphatase 190 H Total Protein 7.4 Albumin 2.1 L Globulin 5.3 H Albumin/Globulin Ratio 0.4 L Vancomycin Trough 07/08/20 07/08/20 08:17 11:19 WBC RBC Hgb Hct MCV MCH MCHC RDW Std Deviation RDW Coeff of Maria [place]upe Plt Count MPV Immature Gran % (Auto) Neut % (Auto) Lymph % (Auto) Bonner % (Auto) Eos % (Auto) Baso % (Auto) Neut # (Auto) Lymph # (Auto) Bonner # (Auto) Eos # (Auto) Baso # (Auto) Immature Gran # (Auto) Sodium Potassium Chloride Carbon Dioxide Anion Gap BUN Creatinine Est Cr Clr Drug Dosing Est GFR ( Amer) Est GFR (Non-Af Amer) BUN/Creatinine Ratio Glucose POC Glucose 234 H Calcium Total Bilirubin AST ALT Alkaline Phosphatase Total Protein Albumin Globulin Albumin/Globulin Ratio Vancomycin Trough 18.1 Medications Administered Current Inpatient Medications Acetaminophen (Acetaminophen 325 Mg Tab) 650 mg PO Q4H PRN PRN Reason: Pain or Fever Stop: 08/05/20 05:53 Albuterol (Albut/Ipratrop 3mg/0.5mg Neb 3 Ml Vial) 3 ml NEB Q2H PRN PRN Reason: Shortness Of Breath Or Wheezing Stop: 08/05/20 06:18 Allopurinol (Allopurinol 300 Mg Tab) 150 mg PO QAM [facility] Stop: 08/05/20 08:59 Last Admin: 07/08/20 08:53 Dose: 150 mg Documented by: Amiodarone HCl (Amiodarone 200 Mg Tab) 200 mg PO BID [facility] Stop: 08/05/20 08:59 Last Admin: 07/08/20 08:56 Dose: 200 mg Documented by: Aspirin (Aspirin 81 Mg Ectab) 81 mg PO QAM [facility] Stop: 08/05/20 08:59 Last Admin: 07/08/20 08:54 Dose: 81 mg Documented by: Atorvastatin Calcium (Atorvastatin 10 Mg Tab) 10 mg PO HS [facility] Stop: 08/05/20 20:59 Last Admin: 07/07/20 20:16 Dose: 10 mg Documented by: Baclofen (Baclofen 10 Mg Tab) 10 mg PO BID [facility] Stop: 08/05/20 08:59 Last Admin: 07/08/20 08:55 Dose: 10 mg Documented by: Clopidogrel Bisulfate (Clopidogrel Bisulfate 75 Mg Tab) 75 mg PO DAILY [facility] Stop: 08/05/20 08:59 Last Admin: 07/08/20 08:54 Dose: 75 mg Documented by: Dextrose (Dextrose 50% 50 Ml Syringe) 25 - 50 ml IV UD PRN; Protocol PRN Reason: Hypoglycemia Protocol Stop: 08/05/20 05:53 Docusate Sodium (Docusate Sodium 100 Mg Cap) 200 mg PO DAILY [facility] Stop: 08/05/20 08:59 Last Admin: 07/08/20 08:54 Dose: 200 mg Documented by: Duloxetine HCl (Duloxetine Hcl 30 Mg Cap) 30 mg PO HS [facility] Stop: 08/05/20 20:59 Last Admin: 07/07/20 20:16 Dose: 30 mg Documented by: Enoxaparin Sodium (Enoxaparin Inj 40 Mg/0.4 Ml Syr) 40 mg SQ Q24H [facility] Stop: 08/05/20 08:59 Last Admin: 07/08/20 08:54 Dose: 40 mg Documented by: Glucagon (Glucagon For Inj 1 Mg Vial) 1 mg SQ UD PRN; Protocol PRN Reason: Hypoglycemia Protocol Stop: 08/05/20 05:53 Glucose (Glucose 10 Tabs/Tube) 4 - 8 tabs PO UD PRN; Protocol PRN Reason: Hypoglycemia Protocol Stop: 08/05/20 05:53 Glucose (Glucose 40% Gel 15 Gm Tube) 15 - 30 gm PO UD PRN; Protocol PRN Reason: Hypoglycemia Protocol Stop: 08/05/20 05:53 Aztreonam 2,000 mg/ Dextrose 110 mls @ 100 mls/hr IV Q12H [facility]; Protocol Stop: 07/13/20 11:59 Last Infusion: 07/08/20 13:12 Dose: Infused Documented by: Bumetanide 2 mg/ Syringe 8 mls @ 4 mls/min IV BID17 [facility] Stop: 08/07/20 16:59 Methylprednisolone 40 mg/ (Syringe) 0.64 mls @ 1.5 mls/min IV Q12 [facility] Stop: 07/08/20 23:59 Last Admin: 07/08/20 12:02 Dose: 1.5 mls/min Documented by: Insulin Aspart (Insulin Aspart 100 Units/Ml 3 Ml Pen) 0 units SC ACHS [facility]; Protocol Stop: 08/05/20 07:29 Last Admin: 07/08/20 12:09 Dose: 25 units Documented by: Insulin Human NPH (Insulin Human Nph) 0 units SC QDD [facility]; Protocol Stop: 08/05/20 16:29 Last Admin: 07/07/20 17:58 Dose: 20 units Documented by: Insulin Human NPH (Insulin Human Nph) 25 units SC QDB [facility]; Protocol Stop: 08/07/20 07:29 Last Admin: 07/08/20 09:00 Dose: 25 units Documented by: Isosorbide Mononitrate (Isosorbide [place] Extended Rel 30 Mg Tabcr) 30 mg PO DAILY [facility] Stop: 08/05/20 08:59 Last Admin: 07/08/20 08:54 Dose: 30 mg Documented by: Metoprolol Succinate (Metoprolol Succ 50mg Ext Rel Tab) 50 mg PO BID [facility] Stop: 08/05/20 08:59 Last Admin: 07/08/20 08:56 Dose: 50 mg Documented by: Miscellaneous (Carbohydrates For Hypoglycemia ) 15 - 30 gm PO UD PRN PRN Reason: Hypoglycemia Protocol Stop: 08/05/20 05:53 Miscellaneous Information (Pharmacy Glycemic Mgmt Consult) 1 ea N/A UD PRN PRN Reason: Consult Stop: 08/05/20 06:37 Multi-Ingredient Cream (Artificial Tears Op Oint 3.5 Gm Tube) 1 appln OP QID [facility] Stop: 08/05/20 08:59 Last Admin: 07/08/20 12:02 Dose: Not Given Documented by: Multivitamins/Minerals (Calcium 600mg + Vit D 400 Iu Tab) 1 tab PO DAILY [facility] Stop: 08/05/20 08:59 Last Admin: 07/08/20 08:54 Dose: 1 tab Documented by: Nitroglycerin (Nitroglycerin Sl 0.4 Mg/Tab Tab) 0.4 mg SL UD PRN PRN Reason: Chest Pain Stop: 08/05/20 05:53 Ondansetron HCl (Ondansetron Inj 2 Mg/Ml 2 Ml Vial) 4 mg IV Q6H PRN PRN Reason: Nausea Stop: 08/05/20 05:53 Prednisone (Prednisone 20 Mg Tab) 40 mg PO QAM [facility] Stop: 08/08/20 08:59 PG Care Time/CCT Total # of Minutes Spent Total Time Spent with Patient: Total time spent is greater than 50% in coordination of care (as documented) at patient's floor/unit and/or counseling patient: Coding Level of Care Code 24794 Subseq Hosp Care Lvl 3 Diagnoses Acute respiratory failure with hypoxia J96.01 Multifocal pneumonia J18.9 Atrial fibrillation with RVR I48.91 Ischemic cardiomyopathy I25.5 Acute on chronic systolic ACC/AHA stage C congestive heart failure I50.23
[2020-07-08] MEDS: BUMETANIDE 2 MG in SYRINGE 0 ML IV SCH (16:46)
[2020-07-08] MEDS: ATORVASTATIN 10 MG TAB PO SCH (20:36)
[2020-07-08] MEDS: DULoxetine HCL 30 MG CAP PO SCH (20:36)
[2020-07-09] MEDS ORDERED: INSULIN HUMAN NPH SC SCH ×2 (07:30→21:00)
[2020-07-09 07:52] LABS: BUN Creatinine Ratio 32.3 (10-20); Calcium 9.5 mg/dl (8.5-10.1); Creatinine Clr Calc Pharmacy 55.8 ml/min; Est GFR (African American) 61.6; Est GFR (Non-African American) 53.1; Magnesium 2.3 mg/dl (1.8-2.4); Phosphorus 2.9 mg/dl (2.5-4.9); Potassium 3.9 mmol/L (3.5-5.1)
[2020-07-09] MEDS: allopurinoL 300 MG TAB PO SCH (08:26)
[2020-07-09] MEDS: ISOSORBIDE MONO EXTENDED REL 30 MG TABCR PO SCH (08:27)
[2020-07-09] MEDS: AMIODARONE 200 MG TAB PO SCH ×2 (08:27→20:19)
[2020-07-09] MEDS: CLOPIDOGREL BISULFATE 75 MG TAB PO SCH (08:27)
[2020-07-09] MEDS: DOCUSATE SODIUM 100 MG CAP PO SCH (08:28)
[2020-07-09] MEDS: CALCIUM 600MG + VIT D 400 IU TAB PO SCH (08:28)
[2020-07-09] MEDS: ASPIRIN 81 MG ECTAB PO SCH (08:28)
[2020-07-09] MEDS: BACLOFEN 10 MG TAB PO SCH ×2 (08:28→20:20)
[2020-07-09] MEDS: predniSONE 20 MG TAB PO SCH (08:28)
[2020-07-09] MEDS: METOPROLOL SUCC 50MG EXT REL TAB PO SCH ×2 (08:29→20:20)
[2020-07-09] MEDS: ENOXAPARIN INJ 40 MG/0.4 ML SYR SQ SCH (08:30)
[2020-07-09] MEDS: BUMETANIDE 2 MG in SYRINGE 0 ML IV SCH ×2 (08:30→17:59)
[2020-07-09] MEDS: ARTIFICIAL TEARS OP OINT 3.5 GM TUBE OP SCH ×4 (08:30→20:21)
[2020-07-09] MEDS: INSULIN ASPART 100 UNITS/ML 3 ML PEN SC SCH ×4 (08:32→21:52)
[2020-07-09] MEDS: INSULIN HUMAN NPH SC SCH (08:40)
--- NOTE | 2020-07-09 11:27 | Hospitalist Progress Note ---
Date of Service July 09, 2020 Assessment & Plan (1) Acute respiratory failure with hypoxia: Acute respiratory failure with hypoxia/multifocal pneumonia/worsening fibrosis- also, likely a component of acute on chronic systolic heart failure Most recently treated for COVID-19 pneumonia during admission from 06/18- 07/05/2020. continue Aztreonam 2 g IV every 12 hours Prednisone 40mg PO daily, slow taper with his fibrosis on CT Bumex 2mg IV BID, excellent diuresis, Cr up slightly at 1.2, will hold Bumex in AM until CR is checked Duonebs every 4 hours while awake and every 2 hours when necessary. down to 5L NC, 98%, try to titrate further, breathing comfortably, no distress at all expect oxygen requirements to improve further with diuresis (2) Multifocal pneumonia: See above just recovered from COVID cover with Aztreonam x 7 days Prednisone 40mg daily with long taper (3) Atrial fibrillation with RVR: History of atrial fibrillation with RVR/ischemic cardiomyopathy/hypertension- Continue amiodarone 200 mg p.o. twice daily, aspirin 81 mg daily, bumetanide 1 mg p.o. daily, clopidogrel 75 mg p.o. daily, isosorbide mononitrate 30 mg p.o. daily and metoprolol succinate 50 mg p.o. twice daily Hold lisinopril as BP low normal, resume when hypertensive per cardiology last visit, no need for anticoagulation as this was isolated event (4) Ischemic cardiomyopathy: See above (5) Acute on chronic systolic ACC/AHA stage C congestive heart failure: volume overloaded on exam great response to Bumex 1mg IV in addition to 1mg PO on 07/07 increased to Bumex 2mg IV BID Cr and K are stable fluid restriction to 1500mL daily hold Bumex in AM until Cr is checked Admission and Anticipated Discharge Date Admission Date: July 06, 2020 Subjective continues to eat well, breathing better, making a lot of urine with Bumex 2mg IV BID Cr is stable 1.29, K 3.9 will hold Bumex in the AM until labs are checked no cough, no chest pain, no fever/chills/sweats, no nausea or diarrhea Review of Systems Review of Systems: All systems reviewed & are unremarkable except as noted in Subjective Respiratory: + dyspnea and + dyspnea on exertion; no cough Cardiovascular: no chest pain and no edema Gastrointestinal: no abdominal pain, no nausea, no vomiting, no constipation and no diarrhea/loose stools Physical Exam Constitutional: well developed, well nourished, well groomed and comfortable; no acute distress Neck: trachea midline, no thyromegaly Respiratory: normal respiratory effort, lungs clear to auscultation Cardiovascular: RRR, no murmur, no edema Gastrointestinal (Abdomen): normal bowel sounds, soft, nontender, no hepatosplenomegaly Musculoskeletal: no cyanosis or clubbing, extremities motor strength 5/5 Skin: no rashes, warm and dry Neurologic: patellar DTR's 2+ bilat, sensation intact and PERRL, EOMI, accommodation nl, no face palsy, no dysarthria Psychiatric: A+Ox3, euthymic affect Lymphatic: no cervical or axillary lymphadenopathy Results & Data Results & Data ([facility]) Vital Signs (Past 12 Hours) Vital Signs Temp Pulse Pulse Resp BP Pulse Ox 07/09/20 08:00 66 07/09/20 07:51 36.5 C 60 18 117/70 97 07/09/20 04:37 36.4 C L 65 18 131/76 96 07/08/20 23:53 36.7 C 66 16 108/69 97 Laboratory Results Laboratory Results - last 24 hr 07/08/20 07/08/20 07/08/20 11:19 16:35 20:29 Sodium Potassium Chloride Carbon Dioxide Anion Gap BUN Creatinine Est Cr Clr Drug Dosing Est GFR ( Amer) Est GFR (Non-Af Amer) BUN/Creatinine Ratio Glucose POC Glucose 234 H 137 H 75 Calcium Phosphorus Magnesium 07/09/20 07/09/20 07:11 07:39 Sodium 135 L Potassium 3.9 Chloride 99 Carbon Dioxide 31 Anion Gap 5.0 BUN 42 H Creatinine 1.29 Est Cr Clr Drug Dosing 55.8 Est GFR ( Amer) 61.6 Est GFR (Non-Af Amer) 53.1 BUN/Creatinine Ratio 32.3 H Glucose 199 H POC Glucose 184 H Calcium 9.5 Phosphorus 2.9 Magnesium 2.3 Medications Administered Current Inpatient Medications Acetaminophen (Acetaminophen 325 Mg Tab) 650 mg PO Q4H PRN PRN Reason: Pain or Fever Stop: 08/05/20 05:53 Albuterol (Albut/Ipratrop 3mg/0.5mg Neb 3 Ml Vial) 3 ml NEB Q2H PRN PRN Reason: Shortness Of Breath Or Wheezing Stop: 08/05/20 06:18 Allopurinol (Allopurinol 300 Mg Tab) 150 mg PO QAM [facility] Stop: 08/05/20 08:59 Last Admin: 07/09/20 08:26 Dose: 150 mg Documented by: Amiodarone HCl (Amiodarone 200 Mg Tab) 200 mg PO BID [facility] Stop: 08/05/20 08:59 Last Admin: 07/09/20 08:27 Dose: 200 mg Documented by: Aspirin (Aspirin 81 Mg Ectab) 81 mg PO QAM [facility] Stop: 08/05/20 08:59 Last Admin: 07/09/20 08:28 Dose: 81 mg Documented by: Atorvastatin Calcium (Atorvastatin 10 Mg Tab) 10 mg PO HS [facility] Stop: 08/05/20 20:59 Last Admin: 07/08/20 20:36 Dose: 10 mg Documented by: Baclofen (Baclofen 10 Mg Tab) 10 mg PO BID [facility] Stop: 08/05/20 08:59 Last Admin: 07/09/20 08:28 Dose: 10 mg Documented by: Clopidogrel Bisulfate (Clopidogrel Bisulfate 75 Mg Tab) 75 mg PO DAILY [facility] Stop: 08/05/20 08:59 Last Admin: 07/09/20 08:27 Dose: 75 mg Documented by: Dextrose (Dextrose 50% 50 Ml Syringe) 25 - 50 ml IV UD PRN; Protocol PRN Reason: Hypoglycemia Protocol Stop: 08/05/20 05:53 Docusate Sodium (Docusate Sodium 100 Mg Cap) 200 mg PO DAILY [facility] Stop: 08/05/20 08:59 Last Admin: 07/09/20 08:28 Dose: 200 mg Documented by: Duloxetine HCl (Duloxetine Hcl 30 Mg Cap) 30 mg PO HS [facility] Stop: 08/05/20 20:59 Last Admin: 07/08/20 20:36 Dose: 30 mg Documented by: Enoxaparin Sodium (Enoxaparin Inj 40 Mg/0.4 Ml Syr) 40 mg SQ Q24H [facility] Stop: 08/05/20 08:59 Last Admin: 07/09/20 08:30 Dose: 40 mg Documented by: Glucagon (Glucagon For Inj 1 Mg Vial) 1 mg SQ UD PRN; Protocol PRN Reason: Hypoglycemia Protocol Stop: 08/05/20 05:53 Glucose (Glucose 10 Tabs/Tube) 4 - 8 tabs PO UD PRN; Protocol PRN Reason: Hypoglycemia Protocol Stop: 08/05/20 05:53 Glucose (Glucose 40% Gel 15 Gm Tube) 15 - 30 gm PO UD PRN; Protocol PRN Reason: Hypoglycemia Protocol Stop: 08/05/20 05:53 Aztreonam 2,000 mg/ Dextrose 110 mls @ 100 mls/hr IV Q12H [facility]; Protocol Stop: 07/13/20 11:59 Last Infusion: 07/09/20 00:24 Dose: Infused Documented by: Bumetanide 2 mg/ Syringe 8 mls @ 4 mls/min IV BID17 [facility] Stop: 08/07/20 16:59 Last Admin: 07/09/20 08:30 Dose: 4 mls/min Documented by: Insulin Aspart (Insulin Aspart 100 Units/Ml 3 Ml Pen) 0 units SC ACHS [facility]; Protocol Stop: 08/05/20 07:29 Last Admin: 07/09/20 08:32 Dose: 21 units Documented by: Insulin Human NPH (Insulin Human Nph) 0 units SC QDD [facility]; Protocol Stop: 08/05/20 16:29 Last Admin: 07/08/20 16:48 Dose: 20 units Documented by: Insulin Human NPH (Insulin Human Nph) 25 units SC QDB [facility]; Protocol Stop: 08/07/20 07:29 Last Admin: 07/09/20 08:40 Dose: 25 units Documented by: Isosorbide Mononitrate (Isosorbide [place] Extended Rel 30 Mg Tabcr) 30 mg PO DAILY [facility] Stop: 08/05/20 08:59 Last Admin: 07/09/20 08:27 Dose: 30 mg Documented by: Metoprolol Succinate (Metoprolol Succ 50mg Ext Rel Tab) 50 mg PO BID [facility] Stop: 08/05/20 08:59 Last Admin: 07/09/20 08:29 Dose: 50 mg Documented by: Miscellaneous (Carbohydrates For Hypoglycemia ) 15 - 30 gm PO UD PRN PRN Reason: Hypoglycemia Protocol Stop: 08/05/20 05:53 Miscellaneous Information (Pharmacy Glycemic Mgmt Consult) 1 ea N/A UD PRN PRN Reason: Consult Stop: 08/05/20 06:37 Multi-Ingredient Cream (Artificial Tears Op Oint 3.5 Gm Tube) 1 appln OP QID [facility] Stop: 08/05/20 08:59 Last Admin: 07/09/20 08:30 Dose: 1 appln Documented by: Multivitamins/Minerals (Calcium 600mg + Vit D 400 Iu Tab) 1 tab PO DAILY [facility] Stop: 08/05/20 08:59 Last Admin: 07/09/20 08:28 Dose: 1 tab Documented by: Nitroglycerin (Nitroglycerin Sl 0.4 Mg/Tab Tab) 0.4 mg SL UD PRN PRN Reason: Chest Pain Stop: 08/05/20 05:53 Ondansetron HCl (Ondansetron Inj 2 Mg/Ml 2 Ml Vial) 4 mg IV Q6H PRN PRN Reason: Nausea Stop: 08/05/20 05:53 Prednisone (Prednisone 20 Mg Tab) 40 mg PO QAM [facility] Stop: 08/08/20 08:59 Last Admin: 07/09/20 08:28 Dose: 40 mg Documented by: PG Care Time/CCT Total # of Minutes Spent Total Time Spent with Patient: Total time spent is greater than 50% in coordination of care (as documented) at patient's floor/unit and/or counseling patient: Coding Level of Care Code 18552 Subseq Hosp Care Lvl 2 Diagnoses Acute respiratory failure with hypoxia J96.01 Multifocal pneumonia J18.9 Atrial fibrillation with RVR I48.91 Ischemic cardiomyopathy I25.5 Acute on chronic systolic ACC/AHA stage C congestive heart failure I50.23
--- NOTE | 2020-07-09 11:35 | Pharmacy Report ---
Pharmacy Glycemic Short Note 2 - Date of Service July 09, 2020 - Glycemic Short BSG Results (Last 24 hours): 07/08/20 07/08/20 07/09/20 16:35 20:29 07:11 Glucose 199 H POC Glucose 137 H 75 07/09/20 07:39 Glucose POC Glucose 184 H OUTPATIENT ANTIDIABETIC REGIMEN: * Novolog 70/30 insulin - 25 units qAM + 30 units qPM * Regular insulin - sliding scale * A1c = 10.4% (06/19/20) ASSESSMENT: 07/09/20: * Mr Chavez received 105 units of insulin yesterday, with BSGs ranging from 75- 234mg/dL. * 45 units of basal insulin * 60 units of prandial/correctional insulin * Steroids were tapered to once daily prednisone this morning. * Expect insulin requirements to decrease as steroids are tapered. Will back off on insulin dosing and loosen Novolog parameters as required during tapering process. * Carb ratio was loosened slightly this morning in anticipation of reduced insulin needs. * NPH timing has been changed to coincide with prednisone administration and bedtime (rather than dinner). 07/08 * Pt received 112 units of insulin yesterday, with BSGs ranging from 150- 223mg/dL. * 40 units of basal insulin (NPH) * 72 units of prandial/correctional insulin * Steroids are being tapered at this time. SoluMedrol q8h --> q12h today, with transition to daily prednisone tomorrow. * Expect glycemic control to improve as steroids taper. * NPH was increased slightly today and carb coverage was tightened last evening. Hesitate to make any further changes today, with upcoming steroid reduction. 07/07 * Mr Chavez received 86 units of insulin yesterday, with BSGs ranging from 72- 288mg/dL. * 40 units of basal * 46 units of prandial/correctional * Pt has been hyperglycemic, most likely d/t IV steroids. * NPH dose increased slightly, as fasting BSG was elevated this morning. * Carb ratio also tightened slightly this evening d/t elevated pre-lunch BSG. 07/06 * 75 yo M who was previously admitted on 06/18/20 for COVID-19. He was discharge yesterday afternoon back to [facility] but then was re-admitted last evening for worsening shortness of breath. * Prior to discharge yesterday, patient had received 14 units of NPH with breakfast as well as 15 units of Novolog with breakfast and lunch. * BSGs prior to discharge were: 171-122-276 mg/dL * It is unknown what insulin patient received at [facility], if any * Upon readmission, his fasting BSG this AM was found to be 97 mg/dL which is on the lower end of his goal. * New risk factors for insulin resistance have emerged including being placed on vancomycin and aztreonam for a suspected bacterial pneumonia as well as being started on methylprednisolone 40 mg IV every 8 hours. * Despite low fasting BSG, planning on being aggressive with AM NPH insulin dosing in order to prevent steroid induced hyperglycemia throughout the evening. * Dinner NPH dosing will depend on BSG trends throughout the day. * During last admission, patient's lunch BSG was consistently much higher than any other BSG which may be due to what he was consuming for breakfast. * Will start with a strict CF/CR ACHS given the risk of post-prandial hyperglycemia with steroids on board. However, will consider tighter CR for breakfast if this trend continues. PLAN FOR INPATIENT GLYCEMIC CONTROL: * Basal insulin * NPH 25 units SQ qAM, with prednisone * NPH 20-25 units SQ qHS per BSG - see eMAR for more details * Bolus insulin * NovoLog per scale ACHS or Q6hrs while NPO * Goal Range: Low 120 mg/dL - High 160 mg/dL * Correction Factor: 12 mg/dL/unit * Carb ratio of 1 unit per 4 grams CHO consumed PLAN FOR DISCHARGE: * HbA1c = 10.4% from 06/18/20 and goal HbA1c for this patient would be < 8%. * Continue with previous recommendations of Novolog 70/30 insulin - 30 units SQ qAM + 15 units SQ qPM as well as initiating Metformin 500 mg daily titrating upwards by 500 mg per week until goal dose of 1000 mg PO BIDM is reached. Vitamin B12 supplementation is recommended with long-term metformin use.
[2020-07-09] MEDS: AZTREONAM 2,000 MG in DEXTROSE 5% 100 ML IV SCH (12:19)
[2020-07-09] MEDS: ATORVASTATIN 10 MG TAB PO SCH (21:50)
[2020-07-09] MEDS: DULoxetine HCL 30 MG CAP PO SCH (21:50)
[2020-07-10] MEDS: AZTREONAM 2,000 MG in DEXTROSE 5% 100 ML IV SCH ×2 (00:18→12:47)
[2020-07-10 07:25] LABS: BUN Creatinine Ratio 38.3 (10-20); Calcium 9.4 mg/dl (8.5-10.1); Creatinine Clr Calc Pharmacy 56.6 ml/min; Est GFR (African American) 62.7; Est GFR (Non-African American) 54.1; Magnesium 2.3 mg/dl (1.8-2.4); Phosphorus 2.9 mg/dl (2.5-4.9)
[2020-07-10] MEDS: BACLOFEN 10 MG TAB PO SCH ×2 (08:15→21:00)
[2020-07-10] MEDS: METOPROLOL SUCC 50MG EXT REL TAB PO SCH ×2 (08:15→20:59)
[2020-07-10] MEDS: DOCUSATE SODIUM 100 MG CAP PO SCH (08:16)
[2020-07-10] MEDS: predniSONE 20 MG TAB PO SCH (08:17)
[2020-07-10] MEDS: ISOSORBIDE MONO EXTENDED REL 30 MG TABCR PO SCH (08:18)
[2020-07-10] MEDS: allopurinoL 300 MG TAB PO SCH (08:18)
[2020-07-10] MEDS: CLOPIDOGREL BISULFATE 75 MG TAB PO SCH (08:18)
[2020-07-10] MEDS: CALCIUM 600MG + VIT D 400 IU TAB PO SCH (08:18)
[2020-07-10] MEDS: AMIODARONE 200 MG TAB PO SCH ×2 (08:18→21:00)
[2020-07-10] MEDS: ASPIRIN 81 MG ECTAB PO SCH (08:19)
[2020-07-10] MEDS: ARTIFICIAL TEARS OP OINT 3.5 GM TUBE OP SCH ×4 (08:19→21:03)
[2020-07-10] MEDS: ENOXAPARIN INJ 40 MG/0.4 ML SYR SQ SCH (08:19)
[2020-07-10] MEDS: INSULIN ASPART 100 UNITS/ML 3 ML PEN SC SCH ×4 (08:21→21:02)
[2020-07-10] MEDS: INSULIN HUMAN NPH SC SCH (08:24)
--- NOTE | 2020-07-10 10:10 | Pharmacy Report ---
Pharmacy Glycemic Short Note 2 - Date of Service July 10, 2020 - Glycemic Short BSG Results (Last 24 hours): 07/09/20 07/09/20 07/09/20 11:40 16:44 20:16 Glucose POC Glucose 262 H 105 H 102 H 07/10/20 07/10/20 06:15 07:23 Glucose 185 H POC Glucose 195 H OUTPATIENT ANTIDIABETIC REGIMEN: * Novolog 70/30 insulin - 25 units qAM + 30 units qPM * Regular insulin - sliding scale * A1c = 10.4% (06/19/20) ASSESSMENT: 07/10: * Patient has received 118 units of insulin over the past 24hrs * 45 units of NPH for basal insulin * 73 units of NovoLog for bolus insulin coverage (CF + CR) * BSGs [phone] mg/dl * BSGs near adequately controlled over the past 24hrs * AM fasting BSG elevated - will increase PM dose of basal insulin (NPH) from 20 to 25 units * BSG increase from breakfast to lunch --> will tighten CR. * Pt continues prednisone 40mg daily. * Significant BSG drop from 262-->105 mg/dl when correctional insulin is given with CHO coverage. Will loosen CR * Goal is to maintain BSGs <200 mg/dl (ideally <150 mg/dl) to prevent complications. 07/09/20: * Mr Chavez received 105 units of insulin yesterday, with BSGs ranging from 75- 234mg/dL. * 45 units of basal insulin * 60 units of prandial/correctional insulin * Steroids were tapered to once daily prednisone this morning. * Expect insulin requirements to decrease as steroids are tapered. Will back off on insulin dosing and loosen Novolog parameters as required during tapering process. * Carb ratio was loosened slightly this morning in anticipation of reduced insulin needs. * NPH timing has been changed to coincide with prednisone administration and bedtime (rather than dinner). PLAN FOR INPATIENT GLYCEMIC CONTROL: * Basal insulin * NPH 25 units SQ qAM, with prednisone * NPH 25 units SQ qHS * Bolus insulin * NovoLog per scale ACHS or Q6hrs while NPO * Goal Range: Low 120 mg/dL - High 140 mg/dL * Correction Factor: 15 mg/dL/unit * Carb ratio of 1 unit per 3 grams CHO consumed PLAN FOR DISCHARGE: * HbA1c = 10.4% from 06/18/20 and goal HbA1c for this patient would be < 8%. * Continue with previous recommendations of Novolog 70/30 insulin - 30 units SQ qAM + 15 units SQ qPM as well as initiating Metformin 500 mg daily titrating upwards by 500 mg per week until goal dose of 1000 mg PO BIDM is reached. Vitamin B12 supplementation is recommended with long-term metformin use.
--- NOTE | 2020-07-10 12:29 | Hospitalist Progress Note ---
Date of Service July 10, 2020 Assessment & Plan (1) Acute respiratory failure with hypoxia: Acute respiratory failure with hypoxia/multifocal pneumonia/worsening fibrosis- also, likely a component of acute on chronic systolic heart failure Most recently treated for COVID-19 pneumonia during admission from 06/18- 07/05/2020. continue Aztreonam 2 g IV every 12 hours, today is day 5, will stop as he has no fever Prednisone 40mg PO daily, slow taper with his fibrosis on CT Bumex 2mg IV BID, excellent diuresis, Cr up slightly at 1.2, will decrease to Bumex 2mg PO daily, follow Cr Duonebs every 4 hours while awake and every 2 hours when necessary. down to 5L NC, 92%, try to titrate further, breathing comfortably, no distress at all patient may require several liters chronically due to the fibrosis from COVID (2) Multifocal pneumonia: See above just recovered from COVID cover with Aztreonam x 5 days, stop after today Prednisone 40mg daily with long taper (3) Atrial fibrillation with RVR: History of atrial fibrillation with RVR/ischemic cardiomyopathy/hypertension- Continue amiodarone 200 mg p.o. twice daily, aspirin 81 mg daily, clopidogrel 75 mg p.o. daily, isosorbide mononitrate 30 mg p.o. daily and metoprolol succinate 50 mg p.o. twice daily Hold lisinopril as BP low normal, resume when hypertensive per cardiology last visit, no need for anticoagulation as this was isolated event (4) Ischemic cardiomyopathy: See above (5) Acute on chronic systolic ACC/AHA stage C congestive heart failure: volume overloaded on exam great response to Bumex 1mg IV in addition to 1mg PO on 07/07 increased to Bumex 2mg IV BID Cr and K are stable fluid restriction to 1500mL daily Cr is 1.2 but BUN and HCO3 trending up suggesting contraction alkalosis will decrease Bumex to 2mg PO daily Admission and Anticipated Discharge Date Admission Date: July 06, 2020 Subjective patient continues to feel much better compared to when he was admitted breathing easy, has a cough with some sputum no fever/chills/sweats, no chest pain, no vomiting/diarrhea reviewed labs, Cr is 1.2, BUN trending up slightly as well as CO2 when he was on Bumex 2 BID d/w RN, will change him to Bumex 2mg PO daily with dose this morning Review of Systems Review of Systems: All systems reviewed & are unremarkable except as noted in Subjective Physical Exam Constitutional: well developed, well nourished, well groomed and comfortable; no acute distress Neck: trachea midline, no thyromegaly Respiratory: normal respiratory effort, lungs clear to auscultation Cardiovascular: RRR, no murmur, no edema Gastrointestinal (Abdomen): normal bowel sounds, soft, nontender, no hepatosplenomegaly Musculoskeletal: no cyanosis or clubbing, extremities motor strength 5/5 Skin: no rashes, warm and dry Neurologic: patellar DTR's 2+ bilat, sensation intact and PERRL, EOMI, accommodation nl, no face palsy, no dysarthria Psychiatric: A+Ox3, euthymic affect Lymphatic: no cervical or axillary lymphadenopathy Results & Data Results & Data ([facility]) Vital Signs (Past 12 Hours) Vital Signs Temp Pulse Pulse Pulse Resp BP Pulse Ox 07/10/20 12:00 37.1 C 77 20 104/71 92 07/10/20 08:00 65 07/10/20 07:22 36.6 C 56 L 18 128/74 94 07/10/20 03:35 36.5 C 80 18 163/91 H 100 07/10/20 03:25 70 Laboratory Results Laboratory Results - last 24 hr 07/09/20 07/09/20 07/10/20 16:44 20:16 06:15 Sodium 136 Potassium 4.0 Chloride 97 L Carbon Dioxide 34 H Anion Gap 5.0 BUN 49 H Creatinine 1.27 Est Cr Clr Drug Dosing 56.6 Est GFR ( Amer) 62.7 Est GFR (Non-Af Amer) 54.1 BUN/Creatinine Ratio 38.3 H Glucose 185 H POC Glucose 105 H 102 H Calcium 9.4 Phosphorus 2.9 Magnesium 2.3 07/10/20 07/10/20 07:23 11:29 Sodium Potassium Chloride Carbon Dioxide Anion Gap BUN Creatinine Est Cr Clr Drug Dosing Est GFR ( Amer) Est GFR (Non-Af Amer) BUN/Creatinine Ratio Glucose POC Glucose 195 H 163 H Calcium Phosphorus Magnesium Medications Administered Current Inpatient Medications Acetaminophen (Acetaminophen 325 Mg Tab) 650 mg PO Q4H PRN PRN Reason: Pain or Fever Stop: 08/05/20 05:53 Albuterol (Albut/Ipratrop 3mg/0.5mg Neb 3 Ml Vial) 3 ml NEB Q2H PRN PRN Reason: Shortness Of Breath Or Wheezing Stop: 08/05/20 06:18 Allopurinol (Allopurinol 300 Mg Tab) 150 mg PO QAM [facility] Stop: 08/05/20 08:59 Last Admin: 07/10/20 08:18 Dose: 150 mg Documented by: Amiodarone HCl (Amiodarone 200 Mg Tab) 200 mg PO BID [facility] Stop: 08/05/20 08:59 Last Admin: 07/10/20 08:18 Dose: 200 mg Documented by: Aspirin (Aspirin 81 Mg Ectab) 81 mg PO QAM [facility] Stop: 08/05/20 08:59 Last Admin: 07/10/20 08:19 Dose: 81 mg Documented by: Atorvastatin Calcium (Atorvastatin 10 Mg Tab) 10 mg PO [facility] Stop: 08/05/20 20:59 Last Admin: 07/09/20 21:50 Dose: 10 mg Documented by: Baclofen (Baclofen 10 Mg Tab) 10 mg PO BID [facility] Stop: 08/05/20 08:59 Last Admin: 07/10/20 08:15 Dose: 10 mg Documented by: Bumetanide (Bumetanide 1 Mg Tab) 2 mg PO QAM [facility] Stop: 08/10/20 08:59 Clopidogrel Bisulfate (Clopidogrel Bisulfate 75 Mg Tab) 75 mg PO DAILY [facility] Stop: 08/05/20 08:59 Last Admin: 07/10/20 08:18 Dose: 75 mg Documented by: Dextrose (Dextrose 50% 50 Ml Syringe) 25 - 50 ml IV UD PRN; Protocol PRN Reason: Hypoglycemia Protocol Stop: 08/05/20 05:53 Docusate Sodium (Docusate Sodium 100 Mg Cap) 200 mg PO DAILY [facility] Stop: 08/05/20 08:59 Last Admin: 07/10/20 08:16 Dose: 200 mg Documented by: Duloxetine HCl (Duloxetine Hcl 30 Mg Cap) 30 mg PO HS [facility] Stop: 08/05/20 20:59 Last Admin: 07/09/20 21:50 Dose: 30 mg Documented by: Enoxaparin Sodium (Enoxaparin Inj 40 Mg/0.4 Ml Syr) 40 mg SQ Q24H [facility] Stop: 08/05/20 08:59 Last Admin: 07/10/20 08:19 Dose: 40 mg Documented by: Glucagon (Glucagon For Inj 1 Mg Vial) 1 mg SQ UD PRN; Protocol PRN Reason: Hypoglycemia Protocol Stop: 08/05/20 05:53 Glucose (Glucose 10 Tabs/Tube) 4 - 8 tabs PO UD PRN; Protocol PRN Reason: Hypoglycemia Protocol Stop: 08/05/20 05:53 Glucose (Glucose 40% Gel 15 Gm Tube) 15 - 30 gm PO UD PRN; Protocol PRN Reason: Hypoglycemia Protocol Stop: 08/05/20 05:53 Aztreonam 2,000 mg/ Dextrose 110 mls @ 100 mls/hr IV Q12H [facility]; Protocol Stop: 07/13/20 11:59 Last Infusion: 07/10/20 02:20 Dose: Infused Documented by: Bumetanide 2 mg/ Syringe 8 mls @ 4 mls/min IV BID17 [facility] Stop: 08/07/20 16:59 Last Admin: 07/09/20 17:59 Dose: 4 mls/min Documented by: Insulin Aspart (Insulin Aspart 100 Units/Ml 3 Ml Pen) 0 units SC [facility]; Protocol Stop: 08/05/20 07:29 Last Admin: 07/10/20 08:21 Dose: 32 units Documented by: Insulin Human NPH (Insulin Human Nph) 25 units SC DAILY [facility]; Protocol Stop: 08/09/20 08:59 Last Admin: 07/10/20 08:24 Dose: 25 units Documented by: Insulin Human NPH (Insulin Human Nph) 25 units SC HS [facility]; Protocol Stop: 08/09/20 20:59 Isosorbide Mononitrate (Isosorbide Coal Extended Rel 30 Mg Tabcr) 30 mg PO DAILY [facility] Stop: 08/05/20 08:59 Last Admin: 07/10/20 08:18 Dose: 30 mg Documented by: Metoprolol Succinate (Metoprolol Succ 50mg Ext Rel Tab) 50 mg PO BID [facility] Stop: 08/05/20 08:59 Last Admin: 07/10/20 08:15 Dose: 50 mg Documented by: Miscellaneous (Carbohydrates For Hypoglycemia ) 15 - 30 gm PO UD PRN PRN Reason: Hypoglycemia Protocol Stop: 08/05/20 05:53 Miscellaneous Information (Pharmacy Glycemic Mgmt Consult) 1 ea N/A UD PRN PRN Reason: Consult Stop: 08/05/20 06:37 Multi-Ingredient Cream (Artificial Tears Op Oint 3.5 Gm Tube) 1 appln OP QID [facility] Stop: 08/05/20 08:59 Last Admin: 07/10/20 08:19 Dose: 1 appln Documented by: Multivitamins/Minerals (Calcium 600mg + Vit D 400 Iu Tab) 1 tab PO DAILY [facility] Stop: 08/05/20 08:59 Last Admin: 07/10/20 08:18 Dose: 1 tab Documented by: Nitroglycerin (Nitroglycerin Sl 0.4 Mg/Tab Tab) 0.4 mg SL UD PRN PRN Reason: Chest Pain Stop: 08/05/20 05:53 Ondansetron HCl (Ondansetron Inj 2 Mg/Ml 2 Ml Vial) 4 mg IV Q6H PRN PRN Reason: Nausea Stop: 08/05/20 05:53 Prednisone (Prednisone 20 Mg Tab) 40 mg PO QAM [facility] Stop: 08/08/20 08:59 Last Admin: 07/10/20 08:17 Dose: 40 mg Documented by: PG Care Time/CCT Total # of Minutes Spent Total Time Spent with Patient: Total time spent is greater than 50% in coordination of care (as documented) at patient's floor/unit and/or counseling patient: Coding Level of Care Code 78578 Subseq Hosp Care Lvl 2 Diagnoses Acute respiratory failure with hypoxia J96.01 Multifocal pneumonia J18.9 Atrial fibrillation with RVR I48.91 Ischemic cardiomyopathy I25.5 Acute on chronic systolic ACC/AHA stage C congestive heart failure I50.23
[2020-07-10] MEDS ORDERED: INSULIN HUMAN NPH SC SCH (21:00)
[2020-07-10] MEDS: DULoxetine HCL 30 MG CAP PO SCH (21:00)
[2020-07-10] MEDS: ATORVASTATIN 10 MG TAB PO SCH (21:01)
[2020-07-11 07:03] LABS: BUN Creatinine Ratio 44.8 (10-20); Calcium 9.1 mg/dl (8.5-10.1); Creatinine Clr Calc Pharmacy 75.7 ml/min; Est GFR (African American) 89.1; Est GFR (Non-African American) 76.9; Magnesium 2.4 mg/dl (1.8-2.4); Phosphorus 3.4 mg/dl (2.5-4.9); Potassium 4.5 mmol/L (3.5-5.1)
[2020-07-11] MEDS: CALCIUM 600MG + VIT D 400 IU TAB PO SCH (08:19)
[2020-07-11] MEDS: DOCUSATE SODIUM 100 MG CAP PO SCH (08:19)
[2020-07-11] MEDS: METOPROLOL SUCC 50MG EXT REL TAB PO SCH ×2 (08:19→21:29)
[2020-07-11] MEDS: CLOPIDOGREL BISULFATE 75 MG TAB PO SCH (08:20)
[2020-07-11] MEDS: ISOSORBIDE MONO EXTENDED REL 30 MG TABCR PO SCH (08:20)
[2020-07-11] MEDS: ASPIRIN 81 MG ECTAB PO SCH (08:20)
[2020-07-11] MEDS: predniSONE 20 MG TAB PO SCH (08:20)
[2020-07-11] MEDS: BACLOFEN 10 MG TAB PO SCH ×2 (08:21→21:28)
[2020-07-11] MEDS: allopurinoL 300 MG TAB PO SCH (08:21)
[2020-07-11] MEDS: BUMETANIDE 1 MG TAB PO SCH (08:21)
[2020-07-11] MEDS: INSULIN ASPART 100 UNITS/ML 3 ML PEN SC SCH ×4 (08:22→21:32)
[2020-07-11] MEDS: ARTIFICIAL TEARS OP OINT 3.5 GM TUBE OP SCH ×4 (08:22→21:29)
[2020-07-11] MEDS: ENOXAPARIN INJ 40 MG/0.4 ML SYR SQ SCH (08:24)
[2020-07-11] MEDS: INSULIN HUMAN NPH SC SCH ×2 (08:25→21:31)
--- NOTE | 2020-07-11 08:41 | Pharmacy Report ---
Pharmacy Glycemic Short Note 2 - Date of Service July 11, 2020 - Glycemic Short BSG Results (Last 24 hours): 07/10/20 07/10/20 07/10/20 11:29 16:20 16:22 Glucose POC Glucose 163 H 45 L* 47 L* 07/10/20 07/10/20 07/10/20 16:40 19:57 23:38 Glucose POC Glucose 80 149 H 131 H 07/11/20 07/11/20 07/11/20 05:51 05:53 06:33 Glucose 65 L POC Glucose 68 L* 85 07/11/20 07:37 Glucose POC Glucose 148 H OUTPATIENT ANTIDIABETIC REGIMEN: * Novolog 70/30 insulin - 25 units qAM + 30 units qPM * Regular insulin - sliding scale * A1c = 10.4% (06/19/20) ASSESSMENT: 07/11: * Patient has received 126 units of insulin over the past 24hrs * 50 units of NPH for basal insulin (Pt on NPH 70/30 as an outpatient therefore using NPH rather than Lantus) * 76 units of NovoLog for bolus insulin coverage (CF + CR) * BSGs 195-163-45,47,[id number],85 mg/dl * LOW BSG (45,47, corrected to 80mg/dl) yesterday propr to dinner. CHO coverage loosened from 3 to 5 * AM fasting BSG LOW - will decrease PM dose of basal insulin (NPH) from 25 to 22 units * Pt continues prednisone 40mg daily. Will decrease insulin dosing with each christian p down in steroid dosing. * Estimated total daily dose of insulin ~ 115 units/day * Goal is to maintain BSGs <200 mg/dl (ideally <150 mg/dl) to prevent complications. 07/10: * Patient has received 118 units of insulin over the past 24hrs * 45 units of NPH for basal insulin * 73 units of NovoLog for bolus insulin coverage (CF + CR) * BSGs [phone] mg/dl * BSGs near adequately controlled over the past 24hrs * AM fasting BSG elevated - will increase PM dose of basal insulin (NPH) from 20 to 25 units * BSG increase from breakfast to lunch --> will tighten CR. * Pt continues prednisone 40mg daily. * Significant BSG drop from 262-->105 mg/dl when correctional insulin is given with CHO coverage. Will loosen CR * Goal is to maintain BSGs <200 mg/dl (ideally <150 mg/dl) to prevent complications. 07/09/20: * Mr Chavez received 105 units of insulin yesterday, with BSGs ranging from 75- 234mg/dL. * 45 units of basal insulin * 60 units of prandial/correctional insulin * Steroids were tapered to once daily prednisone this morning. * Expect insulin requirements to decrease as steroids are tapered. Will back off on insulin dosing and loosen Novolog parameters as required during tapering process. * Carb ratio was loosened slightly this morning in anticipation of reduced insulin needs. * NPH timing has been changed to coincide with prednisone administration and bedtime (rather than dinner). PLAN FOR INPATIENT GLYCEMIC CONTROL: * Basal insulin * NPH 25 units SQ qAM, with prednisone * decrease NPH 22 units SQ qHS * Bolus insulin * NovoLog per scale ACHS or Q6hrs while NPO * Goal Range: Low 110 mg/dL - High 140 mg/dL * Correction Factor: 15 mg/dL/unit * loosen Carb ratio of 1 unit per 5 grams CHO consumed PLAN FOR DISCHARGE: * HbA1c = 10.4% from 06/18/20 and goal HbA1c for this patient would be < 8%. * Continue with previous recommendations of Novolog 70/30 insulin - 30 units SQ qAM + 15 units SQ qPM as well as initiating Metformin 500 mg daily titrating upwards by 500 mg per week until goal dose of 1000 mg PO BIDM is reached. Vitamin B12 supplementation is recommended with long-term metformin use.
[2020-07-11] MEDS ORDERED: AMIODARONE 200 MG TAB PO SCH (09:00)
--- NOTE | 2020-07-11 11:42 | Hospitalist Progress Note ---
Date of Service July 11, 2020 Assessment & Plan (1) Acute respiratory failure with hypoxia: Acute respiratory failure with hypoxia/multifocal pneumonia/worsening fibrosis- also, likely a component of acute on chronic systolic heart failure could consider amiodarone pulmonary toxicity? would be early for this as he was started on Amiodarone within the past month Most recently treated for COVID-19 pneumonia during admission from 06/18- 07/05/2020. completed 5 days of Aztreonam, no convincing evidence of bacterial infection Prednisone 40mg PO daily, slow taper with his fibrosis on CT and possible pulmonary toxicity would probably go down by 10mg every 7 days until off, drop to 30mg daily tomorrow Bumex 2mg PO daily, continue this dose on discharge, keeping lungs dry with systolic heart failure Duonebs every 4 hours while awake and every 2 hours when necessary. down to 5L NC, 92%, try to titrate further, breathing comfortably, no distress at all patient may require several liters chronically due to fibrosis, systolic HF, possible amiodarone toxicity if he remains on 5L and no distress for next two days then could probably be discharged on 07/14 (2) Multifocal pneumonia: See above just recovered from COVID completed Aztreonam, 5 days Prednisone 40mg daily, taper to 30mg tomorrow, drop by 10mg every 7 days (3) Atrial fibrillation with RVR: History of atrial fibrillation with RVR/ischemic cardiomyopathy/hypertension- stop amiodarone today, he has been in NSR entire admission, last admission he was only in afib for 24-48 hours and then converted cardiology had recommended to stay on amiodarone daily for about one month then stop at this point could consider pulm toxicity as possibility, although it would be early for this to happen aspirin 81 mg daily, clopidogrel 75 mg p.o. daily, isosorbide mononitrate 30 mg p.o. daily and metoprolol succinate 50 mg p.o. twice daily Hold lisinopril as BP low normal, resume when hypertensive per cardiology last visit, no need for anticoagulation as this was isolated event (4) Ischemic cardiomyopathy: See above (5) Acute on chronic systolic ACC/AHA stage C congestive heart failure: volume overloaded on exam on admission great response to Bumex 2mg IV BID Cr and K are stable fluid restriction to 1500mL daily Cr is 0.9 continue Bumex 2mg PO daily now and on discharge for fluid balance Admission and Anticipated Discharge Date Admission Date: July 06, 2020 Subjective patient feeling well, breathing is the same, he had some low blood sugar last night, eating well reviewed his medications, he is on amiodarone, cardiology had recommended stopping after a month, could stop now, consider amiodarone toxicity in lungs? labs show Cr of 0.9, K 4.5, BUN 43, phos and mag normal he is very pleasant, feels well, feels like he is getting better Review of Systems Review of Systems: All systems reviewed & are unremarkable except as noted in Subjective Physical Exam Constitutional: well developed, well nourished, well groomed and comfortable; no acute distress Neck: trachea midline, no thyromegaly Respiratory: normal respiratory effort, lungs clear to auscultation Cardiovascular: RRR, no murmur, no edema Gastrointestinal (Abdomen): normal bowel sounds, soft, nontender, no hepatosplenomegaly Musculoskeletal: no cyanosis or clubbing, extremities motor strength 5/5 Skin: no rashes, warm and dry Neurologic: patellar DTR's 2+ bilat, sensation intact and PERRL, EOMI, accommodation nl, no face palsy, no dysarthria Psychiatric: A+Ox3, euthymic affect Lymphatic: no cervical or axillary lymphadenopathy Results & Data Results & Data ([facility]) Vital Signs (Past 12 Hours) Vital Signs Temp Pulse Pulse Resp BP Pulse Ox 07/11/20 11:03 36.7 C 59 L 20 118/71 92 07/11/20 08:00 57 L 07/11/20 07:22 36.6 C 61 18 121/71 97 07/11/20 04:15 36.5 C 59 L 20 125/74 99 07/11/20 00:00 65 Laboratory Results Laboratory Results - last 24 hr 07/10/20 07/10/20 07/10/20 16:20 16:22 16:40 Sodium Potassium Chloride Carbon Dioxide Anion Gap BUN Creatinine Est Cr Clr Drug Dosing Est GFR ( Amer) Est GFR (Non-Af Amer) BUN/Creatinine Ratio Glucose POC Glucose 45 L* 47 L* 80 Calcium Phosphorus Magnesium 07/10/20 07/10/20 07/11/20 19:57 23:38 05:51 Sodium Potassium Chloride Carbon Dioxide Anion Gap BUN Creatinine Est Cr Clr Drug Dosing Est GFR ( Amer) Est GFR (Non-Af Amer) BUN/Creatinine Ratio Glucose POC Glucose 149 H 131 H 68 L* Calcium Phosphorus Magnesium 07/11/20 07/11/20 07/11/20 05:53 06:33 07:37 Sodium 139 Potassium 4.5 Chloride 101 Carbon Dioxide 35 H Anion Gap 3.0 BUN 43 H Creatinine 0.95 D Est Cr Clr Drug Dosing 75.7 Est GFR ( Amer) 89.1 Est GFR (Non-Af Amer) 76.9 BUN/Creatinine Ratio 44.8 H Glucose 65 L POC Glucose 85 148 H Calcium 9.1 Phosphorus 3.4 Magnesium 2.4 Medications Administered Current Inpatient Medications Acetaminophen (Acetaminophen 325 Mg Tab) 650 mg PO Q4H PRN PRN Reason: Pain or Fever Stop: 08/05/20 05:53 Albuterol (Albut/Ipratrop 3mg/0.5mg Neb 3 Ml Vial) 3 ml NEB Q2H PRN PRN Reason: Shortness Of Breath Or Wheezing Stop: 08/05/20 06:18 Allopurinol (Allopurinol 300 Mg Tab) [facility] [place] Stop: 08/05/20 08:59 Last Admin: 07/11/20 08:21 Dose: 150 mg Documented by: Aspirin (Aspirin 81 Mg Ectab) 81 mg PO QAM [facility] Stop: 08/05/20 08:59 Last Admin: 07/11/20 08:20 Dose: 81 mg Documented by: Atorvastatin Calcium (Atorvastatin 10 Mg Tab) 10 mg PO [facility] Stop: 08/05/20 20:59 Last Admin: 07/10/20 21:01 Dose: 10 mg Documented by: Baclofen (Baclofen 10 Mg Tab) 10 mg PO BID [facility] Stop: 08/05/20 08:59 Last Admin: 07/11/20 08:21 Dose: 10 mg Documented by: Bumetanide (Bumetanide 1 Mg Tab) 2 mg PO QAM [facility] Stop: 08/10/20 08:59 Last Admin: 07/11/20 08:21 Dose: 2 mg Documented by: Clopidogrel Bisulfate (Clopidogrel Bisulfate 75 Mg Tab) 75 mg PO DAILY [facility] Stop: 08/05/20 08:59 Last Admin: 07/11/20 08:20 Dose: 75 mg Documented by: Dextrose (Dextrose 50% 50 Ml Syringe) 25 - 50 ml IV UD PRN; Protocol PRN Reason: Hypoglycemia Protocol Stop: 08/05/20 05:53 Docusate Sodium (Docusate Sodium 100 Mg Cap) 200 mg PO DAILY [facility] Stop: 08/05/20 08:59 Last Admin: 07/11/20 08:19 Dose: 200 mg Documented by: Duloxetine HCl (Duloxetine Hcl 30 Mg Cap) 30 mg PO [facility] Stop: 08/05/20 20:59 Last Admin: 07/10/20 21:00 Dose: 30 mg Documented by: Enoxaparin Sodium (Enoxaparin Inj 40 Mg/0.4 Ml Syr) 40 mg SQ Q24H [facility] Stop: 08/05/20 08:59 Last Admin: 07/11/20 08:24 Dose: 40 mg Documented by: Glucagon (Glucagon For Inj 1 Mg Vial) 1 mg SQ UD PRN; Protocol PRN Reason: Hypoglycemia Protocol Stop: 08/05/20 05:53 Glucose (Glucose 10 Tabs/Tube) 4 - 8 tabs PO UD PRN; Protocol PRN Reason: Hypoglycemia Protocol Stop: 08/05/20 05:53 Glucose (Glucose 40% Gel 15 Gm Tube) 15 - 30 gm PO UD PRN; Protocol PRN Reason: Hypoglycemia Protocol Stop: 08/05/20 05:53 Bumetanide 2 mg/ Syringe 8 mls @ 4 mls/min IV BID17 [facility] Stop: 08/07/20 16:59 Last Admin: 07/09/20 17:59 Dose: 4 mls/min Documented by: Insulin Aspart (Insulin Aspart 100 Units/Ml 3 Ml Pen) 0 units SC [facility]; Protocol Stop: 08/05/20 07:29 Last Admin: 07/11/20 08:22 Dose: 16 units Documented by: Insulin Human NPH (Insulin Human Nph) 25 units SC DAILY [facility]; Protocol Stop: 08/09/20 08:59 Last Admin: 07/11/20 08:25 Dose: 25 units Documented by: Insulin Human NPH (Insulin Human Nph) 22 units SC [facility]; Protocol Stop: 08/10/20 20:59 Isosorbide Mononitrate (Isosorbide [place] Extended Rel 30 Mg Tabcr) 30 mg PO DAILY [facility] Stop: 08/05/20 08:59 Last Admin: 07/11/20 08:20 Dose: 30 mg Documented by: Metoprolol Succinate (Metoprolol Succ 50mg Ext Rel Tab) 50 mg PO BID [facility] Stop: 08/05/20 08:59 Last Admin: 07/11/20 08:19 Dose: 50 mg Documented by: Miscellaneous (Carbohydrates For Hypoglycemia ) 15 - 30 gm PO UD PRN PRN Reason: Hypoglycemia Protocol Stop: 08/05/20 05:53 Last Admin: 07/10/20 16:25 Dose: 30 gm Documented by: Miscellaneous Information (Pharmacy Glycemic Mgmt Consult) 1 ea N/A UD PRN PRN Reason: Consult Stop: 08/05/20 06:37 Multi-Ingredient Cream (Artificial Tears Op Oint 3.5 Gm Tube) 1 appln OP QID [facility] Stop: 08/05/20 08:59 Last Admin: 07/11/20 08:22 Dose: 1 appln Documented by: Multivitamins/Minerals (Calcium 600mg + Vit D 400 Iu Tab) 1 tab PO DAILY [facility] Stop: 08/05/20 08:59 Last Admin: 07/11/20 08:19 Dose: 1 tab Documented by: Nitroglycerin (Nitroglycerin Sl 0.4 Mg/Tab Tab) 0.4 mg SL UD PRN PRN Reason: Chest Pain Stop: 08/05/20 05:53 Ondansetron HCl (Ondansetron Inj 2 Mg/Ml 2 Ml Vial) 4 mg IV Q6H PRN PRN Reason: Nausea Stop: 08/05/20 05:53 Prednisone (Prednisone 20 Mg Tab) 40 mg PO QAM [facility] Stop: 08/08/20 08:59 Last Admin: 07/11/20 08:20 Dose: 40 mg Documented by: PG Care Time/CCT Total # of Minutes Spent Total Time Spent with Patient: Total time spent is greater than 50% in coordination of care (as documented) at patient's floor/unit and/or counseling patient: Coding Level of Care Code 25438 Subseq Hosp Care Lvl 3 Diagnoses Acute respiratory failure with hypoxia J96.01 Multifocal pneumonia J18.9 Atrial fibrillation with RVR I48.91 Ischemic cardiomyopathy I25.5 Acute on chronic systolic ACC/AHA stage C congestive heart failure I50.23
[2020-07-11] MEDS ORDERED: INSULIN HUMAN NPH SC SCH (21:00)
[2020-07-11] MEDS: ATORVASTATIN 10 MG TAB PO SCH (21:26)
[2020-07-11] MEDS: DULoxetine HCL 30 MG CAP PO SCH (21:28)
[2020-07-12] MEDS: INSULIN ASPART 100 UNITS/ML 3 ML PEN SC SCH ×4 (08:00→20:06)
[2020-07-12] MEDS: ISOSORBIDE MONO EXTENDED REL 30 MG TABCR PO SCH (08:01)
[2020-07-12] MEDS: ASPIRIN 81 MG ECTAB PO SCH (08:01)
[2020-07-12] MEDS: predniSONE 10 MG TABLET PO SCH (08:02)
[2020-07-12] MEDS: allopurinoL 300 MG TAB PO SCH (08:02)
[2020-07-12] MEDS: BUMETANIDE 1 MG TAB PO SCH (08:03)
[2020-07-12] MEDS: CALCIUM 600MG + VIT D 400 IU TAB PO SCH (08:03)
[2020-07-12] MEDS: CLOPIDOGREL BISULFATE 75 MG TAB PO SCH (08:03)
[2020-07-12] MEDS: METOPROLOL SUCC 50MG EXT REL TAB PO SCH ×2 (08:03→19:47)
[2020-07-12] MEDS: DOCUSATE SODIUM 100 MG CAP PO SCH (08:03)
[2020-07-12] MEDS: BACLOFEN 10 MG TAB PO SCH ×2 (08:04→19:47)
[2020-07-12] MEDS: ARTIFICIAL TEARS OP OINT 3.5 GM TUBE OP SCH ×4 (08:04→19:46)
[2020-07-12] MEDS: ENOXAPARIN INJ 40 MG/0.4 ML SYR SQ SCH (08:05)
[2020-07-12] MEDS ORDERED: INSULIN HUMAN NPH SC SCH (09:00)
[2020-07-12] MEDS ORDERED: metOLazone 5 MG TABLET PO SCH (09:00)
[2020-07-12 09:51] LABS: BUN Creatinine Ratio 39.4 (10-20); Calcium 9.4 mg/dl (8.5-10.1); Creatinine Clr Calc Pharmacy 64.8 ml/min; Est GFR (African American) 73.8; Est GFR (Non-African American) 63.7; Magnesium 2.2 mg/dl (1.8-2.4); Phosphorus 3.1 mg/dl (2.5-4.9)
[2020-07-12 10:04] LABS: Partial Thromboplastin Ratio 0.8; Partial Thromboplastin Time 22.9 Seconds (21.0-31.0); Prothrombin Time 10.9 Seconds (9.0-12.0)
[2020-07-12 10:11] LABS: D Dimer 560 ug/L FEU (0-500)
--- NOTE | 2020-07-12 12:31 | Pharmacy Report ---
Glycemic Control Progress Note - Date of Service July 12, 2020 - Scope Glycemic Pharmacist consulted for glycemic control to write orders per [facility] inpatient glycemic control protocol. - Objective Accuchecks BSG(last 24 hours):: 07/11/20 07/11/20 07/12/20 16:32 20:29 06:36 Glucose POC Glucose 203 H 159 H 259 H 07/12/20 07/12/20 07/12/20 07:26 09:20 11:29 Glucose 271 H POC Glucose 188 H 171 H - Recent Pertinent Medications The patient is currently receiving: * Basal insulin: NPH 22 units in the morning and 16 units in the PM * Correctional Insulin: Novolog Correction per scale ACHS Goal Range: Low 110 mg/dL - High 140 mg/dL Correction Factor: 15 mg/dL/unit * Prandial insulin: Per carb ratio of 1 unit per 5 grams CHO consumed - Outpatient Anti-Diabetic Meds Novolin 70/30 --> 25 units in the morning and 30 units in the evening + Regular insulin - Assessment & Plan ASSESSMENT: * See progress note from 07/05/19 for more background info, in short: * Pt receiving SQ basal bolus insulin regimen for hyperglycemia secondary to baseline DM (outpatient regimen on hold). Patient continues on prednisone 30 mg daily. * Patient is currently receiving an average of 102 units of insulin per day * 41 units of basal insulin * 61 units of prandial/correctional insulin * BSGs ranging 68 - 251 mg/dl over the past 24hrs * Changes needed to insulin regimen: * AM Fasting BSG = 259 mg/dl. This is above goal range for patient based on inpatient targets and co-morbidities. Prednisone is decreased from 40 mg to 30 mg today so will decrease insulin by 10%. Continue evening dose of NPH since evening dose of NPH did not appear sufficient yesterday but steroids were decreased today. * Post-prandial BSGs were elevated but this was mostly due to missed carbohydrate coverage at breakfast (due to low BSG at breakfast). Continue. * Total daily dose = ~90-100 units. Adjusted insulin. PLAN FOR INPATIENT GLYCEMIC CONTROL: * DECREASING NPH to 22 units SQ qAM then continuing NPH 16 units qPM * Continuing correction factor of 15 mg/dl/unit * Continuing carb ratio of 1 unit per 5 grams CHO consumed * Continuing goal range of Low 110 mg/dL - High 140 mg/dL RECOMMENDATIONS FOR DISCHARGE: * HbA1c = 10.4% from 06/18/20 and goal HbA1c for this patient would be < 8%. * Continue with previous recommendations of Novolog 70/30 insulin - 30 units SQ qAM + 15 units SQ qPM as well as initiating Metformin 500 mg daily titrating upwards by 500 mg per week until goal dose of 1000 mg PO BIDM is reached. Vitamin B12 supplementation is recommended with long-term metformin use. Thank you.
[2020-07-12] MEDS: DULoxetine HCL 30 MG CAP PO SCH (19:47)
[2020-07-12] MEDS: ATORVASTATIN 10 MG TAB PO SCH (19:47)
[2020-07-12] MEDS ORDERED: SODIUM CHLORIDE 0.65% NA SOLN 45 ML (OCEAN) ONE (20:05)
[2020-07-12] MEDS: INSULIN HUMAN NPH SC SCH (20:06)
--- NOTE | 2020-07-12 20:58 | Hospitalist Progress Note ---
Date of Service July 12, 2020 Assessment & Plan (1) Acute respiratory failure with hypoxia: Acute respiratory failure with hypoxia/multifocal pneumonia/worsening fibrosis--improving today with diuresis Suspect component of acute on chronic systolic heart failure could consider amiodarone pulmonary toxicity? would be early for this as he was started on Amiodarone within the past month D-dimer checked today and only mildly elevated at 560 which is significantly reduced from 4000 just 1 to 2 weeks ago-not likely to have PE especially as is improving with diuresis Most recently treated for COVID-19 pneumonia during admission from 06/18- 07/05/2020. completed 5 days of Aztreonam, no convincing evidence of bacterial infection Continue prednisone with slow taper given fibrosis on CT and possible pulmonary toxicity would probably go down by 10mg every 7 days until off, currently on 30mg daily starting 07/12 Continue Bumex 2mg PO daily, continue this dose on discharge which is an increase from before, keeping lungs dry with systolic heart failure-gave 1 dose of the booster metolazone on the morning of 07/12 Continue Duonebs every 4 hours while awake and every 2 hours when necessary. if he remains on 4-5L and no distress for next two days then could probably be discharged on 07/14 (2) Multifocal pneumonia: See above just recovered from COVID completed Aztreonam, 5 days Prednisone taper as above, drop by 10mg every 7 days (3) Atrial fibrillation with RVR: History of atrial fibrillation with RVR/ischemic cardiomyopathy/hypertension-remains in sinus rhythm here stopped amiodarone this admission-last admission he was only in afib for 24-48 hours and then converted cardiology had recommended to stay on amiodarone daily for about one month then stop at this point could consider pulm toxicity as possibility, although it would be early for this to happen Continue aspirin 81 mg daily, clopidogrel 75 mg p.o. daily, isosorbide mononitrate 30 mg p.o. daily and metoprolol succinate 50 mg p.o. twice daily Hold lisinopril as BP low normal, resume when hypertensive per cardiology last visit, no need for anticoagulation as this was isolated event (4) Ischemic cardiomyopathy: LVEF 30% based on echocardiogram from 08/2019 (5) Acute on chronic systolic ACC/AHA stage C congestive heart failure: volume overloaded on exam on admission great response to Bumex 2mg IV BID Cr and K are stable fluid restriction to 1500mL daily continue Bumex 2mg PO daily now and on discharge for fluid balance with me tolazone as needed (6) Hyperglycemia due to type 2 diabetes mellitus: Glycemic pharmacy control managing (7) Intractable hiccups: Continue backflow (8) Gout: No acute issues Continue allopurinol (9) Hypertension: Blood pressures are controlled Continue Bumex, isosorbide, Toprol-XL Holding lisinopril (10) Coronary artery disease: No acute issues Continue aspirin, atorvastatin, metoprolol (11) Dyslipidemia: Continue atorvastatin (12) GERD (gastroesophageal reflux disease): Noted in chart but not on medication for this Add Protonix while taking steroids (13) DVT prophylaxis: Lovenox SQ Disposition-improving, continued stay on telemetry, likely back to the retirement in 1 to 2 days Admission and Anticipated Discharge Date Admission Date: July 06, 2020 Subjective Patient reports his shortness of breath is much improved. He is urinating quite a bit today. His oxygen is weaned down to 4-5 l nasal cannula. He denies any chest pain or abdominal pain. He is eating and moving his bowels. Telemetry with normal sinus rhythm with rates in the 70s, PVCs Review of Systems Review of Systems: All systems reviewed & are unremarkable except as noted in HPI & below Physical Exam Constitutional: WD/WN, vitals as above Eyes: + anicteric sclerae Neck: trachea midline, no thyromegaly Respiratory: normal respiratory effort Auscultation: + crackles (Bibasilar); no rhonchi and no wheezes Cardiovascular: RRR, no murmur, no edema Chest (Breasts): Chest: normal inspection of chest Gastrointestinal (Abdomen): normal bowel sounds, soft, nontender, no hepatosplenomegaly Musculoskeletal: Extremities: extremities normal to inspection; no cyanosis and no clubbing Skin: no rashes, warm and dry Neurologic: moves all extremities and awake; no focal motor deficits Psychiatric: A+Ox3, euthymic affect Lymphatic: no lymphedema Results & Data Results & Data ([facility]) Vital Signs (Past 12 Hours) Vital Signs Temp Pulse Pulse Resp BP Pulse Ox 07/12/20 19:38 37.2 C 70 16 127/65 97 07/12/20 16:30 72 07/12/20 15:47 36.9 C 71 20 121/78 97 07/12/20 11:31 36.8 C 69 22 120/68 100 Laboratory Results 07/12/20 07/12/20 07/12/20 Range/Units 19:58 16:33 11:29 PT (9.0-12.0) Seconds INR (0.9-1.1) APTT (21.0-31.0) Seconds PTT Ratio D-Dimer (0-500) ug/L FEU Sodium (136-145) mmol/L Potassium (3.5-5.1) mmol/L Chloride (98-107) mmol/L Carbon Dioxide (21-32) mmol/L Anion Gap (3-11) BUN (7-18) mg/dl Creatinine (0.6-1.4) mg/dl Est Cr Clr Drug Dosing ml/min Est GFR ( Amer) Est GFR (Non-Af Amer) BUN/Creatinine Ratio (10-20) Glucose (70-99) mg/dl POC Glucose 301 H* 181 H 171 H (70-99) mg/dl Calcium (8.5-10.1) mg/dl Phosphorus (2.5-4.9) mg/dl Magnesium (1.8-2.4) mg/dl 07/12/20 07/12/20 07/12/20 Range/Units 09:40 09:20 07:26 PT 10.9 (9.0-12.0) Seconds INR 1.0 (0.9-1.1) APTT 22.9 (21.0-31.0) Seconds PTT Ratio 0.8 D-Dimer 560 H* (0-500) ug/L FEU Sodium 136 (136-145) mmol/L Potassium 4.0 (3.5-5.1) mmol/L Chloride 98 (98-107) mmol/L Carbon Dioxide 31 (21-32) mmol/L Anion Gap 7.0 (3-11) BUN 44 H (7-18) mg/dl Creatinine 1.11 (0.6-1.4) mg/dl Est Cr Clr Drug Dosing 64.8 ml/min Est GFR ( Amer) 73.8 Est GFR (Non-Af Amer) 63.7 BUN/Creatinine Ratio 39.4 H (10-20) Glucose 271 H (70-99) mg/dl POC Glucose 188 H (70-99) mg/dl Calcium 9.4 (8.5-10.1) mg/dl Phosphorus 3.1 (2.5-4.9) mg/dl Magnesium 2.2 (1.8-2.4) mg/dl 07/12/20 Range/Units 06:36 PT (9.0-12.0) Seconds INR (0.9-1.1) APTT (21.0-31.0) Seconds PTT Ratio D-Dimer (0-500) ug/L FEU Sodium (136-145) mmol/L Potassium (3.5-5.1) mmol/L Chloride (98-107) mmol/L Carbon Dioxide (21-32) mmol/L Anion Gap (3-11) BUN (7-18) mg/dl Creatinine (0.6-1.4) mg/dl Est Cr Clr Drug Dosing ml/min Est GFR ( Amer) Est GFR (Non-Af Amer) BUN/Creatinine Ratio (10-20) Glucose (70-99) mg/dl POC Glucose 259 H (70-99) mg/dl Calcium (8.5-10.1) mg/dl Phosphorus (2.5-4.9) mg/dl Magnesium (1.8-2.4) mg/dl PG Care Time/CCT Total # of Minutes Spent Total Time Spent with Patient: Total time spent is greater than 50% in coordination of care (as documented) at patient's floor/unit and/or counseling patient: Coding Level of Care Code 36058 Subseq Hosp Care Lvl 3 Diagnoses Acute respiratory failure with hypoxia J96.01 Multifocal pneumonia J18.9 Atrial fibrillation with RVR I48.91 Ischemic cardiomyopathy I25.5 Acute on chronic systolic ACC/AHA stage C congestive heart failure I50.23 Hyperglycemia due to type 2 diabetes mellitus E11.65 Intractable hiccups R06.6 Gout M10.9 Hypertension I10 Coronary artery disease I25.10 Dyslipidemia E78.5 GERD (gastroesophageal reflux disease) K21.9 DVT prophylaxis Z29.9
[2020-07-13 07:28] LABS: Basophils # (auto) 0.01 K/uL (0-0.2); Basophils % (auto) 0.1 %; Eosinophils # (auto) 0.06 K/uL (0-0.5); Eosinophils % (auto) 0.7 %; Hematocrit (blood only) 48.2 % (42-52); Hemoglobin 15.6 g/dL (14.0-18.0); Immature Granulocytes # (auto) 0.03 K/uL (0.00-0.02); Immature Granulocytes % (auto) 0.4 %; Lymphocytes # (auto) 1.38 K/uL (1.2-3.4); Lymphocytes % (auto) 16.1 %; Mean Corpuscular Hemoglobin 27.8 pg (25-34); Mean Corpuscular Hgb Conc 32.4 g/dL (32-36); Mean Corpuscular Volume 85.8 fL (80-100); Mean Platelet Volume 9.8 fL (7.4-10.4); Neutrophils # (auto) 5.87 K/uL (1.4-6.5); Neutrophils % (auto) 68.7 %; Platelet Count 332 K/uL (130-400); RDW Coefficient of Variation 16.4 % (11.5-14.5); RDW Standard Deviation 50.9 fL (36.4-46.3); Red Blood Count 5.62 M/uL (4.7-6.1); White Blood Count 8.55 K/uL (4.8-10.8)
[2020-07-13 08:06] LABS: BUN Creatinine Ratio 41.1 (10-20); Calcium 10.7 mg/dl (8.5-10.1); Creatinine Clr Calc Pharmacy 63.1 ml/min; Est GFR (African American) 71.5; Est GFR (Non-African American) 61.7; Magnesium 2.4 mg/dl (1.8-2.4); Potassium 3.8 mmol/L (3.5-5.1)
[2020-07-13] MEDS ORDERED: INSULIN HUMAN NPH SC SCH ×3 (09:00→21:00)
[2020-07-13] MEDS: INSULIN ASPART 100 UNITS/ML 3 ML PEN SC SCH ×5 (09:12→21:13)
[2020-07-13] MEDS: BUMETANIDE 1 MG TAB PO SCH (09:51)
[2020-07-13] MEDS: METOPROLOL SUCC 50MG EXT REL TAB PO SCH ×2 (09:52→21:13)
[2020-07-13] MEDS: BACLOFEN 10 MG TAB PO SCH ×2 (09:52→21:13)
[2020-07-13] MEDS: DOCUSATE SODIUM 100 MG CAP PO SCH (09:53)
[2020-07-13] MEDS: ARTIFICIAL TEARS OP OINT 3.5 GM TUBE OP SCH ×4 (09:53→21:13)
[2020-07-13] MEDS: ASPIRIN 81 MG ECTAB PO SCH (10:16)
[2020-07-13] MEDS: allopurinoL 300 MG TAB PO SCH (10:16)
[2020-07-13] MEDS: CALCIUM 600MG + VIT D 400 IU TAB PO SCH (10:16)
[2020-07-13] MEDS: predniSONE 10 MG TABLET PO SCH (10:17)
[2020-07-13] MEDS: ISOSORBIDE MONO EXTENDED REL 30 MG TABCR PO SCH (10:17)
[2020-07-13] MEDS: CLOPIDOGREL BISULFATE 75 MG TAB PO SCH (10:17)
[2020-07-13] MEDS: ENOXAPARIN INJ 40 MG/0.4 ML SYR SQ SCH (10:18)
--- NOTE | 2020-07-13 10:37 | XRay Report ---
XR chest 1V portable CLINICAL HISTORY: Pneumonia. Follow-up study. COMPARISON STUDY: 07/06/2020 FINDINGS: The heart is mildly enlarged. There are persistent but improving bilateral pulmonary airspa ce opacities. There is no overt failure. There are no large pleural effusions.[ IMPRESSION: Improving bilateral pulmonary airspace opacities. ACT 112: Negative or not required by law. Electronically signed by: Jesus Llamas M.D. 07/13/2020 10:36 AM
--- NOTE | 2020-07-13 11:01 | Hospitalist Progress Note ---
Date of Service July 13, 2020 Assessment & Plan (1) Acute respiratory failure with hypoxia: Acute respiratory failure with hypoxia/multifocal pneumonia/worsening fibrosis--improved somewhat with diuresis, CXR improved on 07/13, however remains on 5LNC With nasal congestion from O2 as well Suspect component of acute on chronic systolic heart failure could consider amiodarone pulmonary toxicity? would be early for this as he was started on Amiodarone within the past month D-dimer checked on 07/12 and only mildly elevated at 560 which is significantly reduced from 4000 just 1 to 2 weeks ago-still requiring 5LNC despite diuresis of 4.8L and prednisone course--< check CTA Chest today to r/o PE and look for other lung pathology Most recently treated for COVID-19 pneumonia during admission from 06/18- 07/05/2020. completed 5 days of Aztreonam, no convincing evidence of bacterial infection Continue prednisone with slow taper given fibrosis on CT and possible pulmonary toxicity would go down by 10mg every 7 days until off, currently on 30mg daily starting 07/12 Continue Bumex 2mg PO daily, continue this dose on discharge which is an increase from before, keeping lungs dry with systolic heart failure-gave 1 dose of the booster metolazone on the morning of 07/12 Change Duonebs to q6 hours scheduled as are prn and he is wheezing a bit today -start Afrin for nasal congestion x 6 doses max (2) Multifocal pneumonia: See above just recovered from COVID completed Aztreonam, 5 days Prednisone taper as above, drop by 10mg every 7 days Checking CTA chest today (3) Atrial fibrillation with RVR: History of atrial fibrillation with RVR/ischemic cardiomyopathy/hypertension-remains in sinus rhythm here stopped amiodarone this admission-last admission he was only in afib for 24-48 hours and then converted cardiology had recommended to stay on amiodarone daily for about one month then stop at this point could consider pulm toxicity as possibility, although it would be early for this to happen Continue aspirin 81 mg daily, clopidogrel 75 mg p.o. daily, isosorbide mononitrate 30 mg p.o. daily and metoprolol succinate 50 mg p.o. twice daily Continue to Hold lisinopril as BP low normal, resume when hypertensive per cardiology last visit, no need for anticoagulation as this was isolated event (4) Ischemic cardiomyopathy: LVEF 30% based on echocardiogram from 08/2019 (5) Acute on chronic systolic ACC/AHA stage C congestive heart failure: volume overloaded on exam on admission great response to Bumex 2mg IV BID Cr and K are stable fluid restriction to 1500mL daily continue Bumex 2mg PO daily now and on discharge for fluid balance with metolazone as needed (6) Hyperglycemia due to type 2 diabetes mellitus: Glycemic pharmacy control managing Had severe hypoglycemia this AM, pharmacy to adjust insulin Was given hypoglycemia protocol (7) Intractable hiccups: Continue Baclofen (8) Gout: No acute issues Continue allopurinol (9) Hypertension: Blood pressures are controlled Continue Bumex, isosorbide, Toprol-XL Holding lisinopril (10) Coronary artery disease: No acute issues Continue aspirin, atorvastatin, metoprolol (11) Dyslipidemia: Continue atorvastatin (12) GERD (gastroesophageal reflux disease): Noted in chart but not on medication for this Add Protonix while taking steroids (13) DVT prophylaxis: Lovenox SQ Disposition-improving, continued stay on telemetry, [facility] Admission and Anticipated Discharge Date Admission Date: July 06, 2020 Subjective Pt c/o bad stuffy nose and feels like has to breathe through his mouth. Making him feel SOB. Denies CP. No nausea or abd pain, no other conerns. Remains on 5LNC. Is making urine Tele with NSR Review of Systems Review of Systems: All systems reviewed & are unremarkable except as noted in HPI & below Physical Exam Constitutional: WD/WN, vitals as above Eyes: + anicteric sclerae Neck: trachea midline, no thyromegaly Respiratory: normal respiratory effort Auscultation: + diminished lung sounds (throughout), + crackles (Bibasilar) and + wheezes (scattered in mid lung meier); no rhonchi Cardiovascular: RRR, no murmur, no edema Chest (Breasts): Chest: normal inspection of chest Gastrointestinal (Abdomen): normal bowel sounds, soft, nontender, no hepatosplenomegaly Musculoskeletal: Extremities: extremities normal to inspection; no cyanosis and no clubbing Skin: no rashes, warm and dry Neurologic: moves all extremities and awake; no focal motor deficits Psychiatric: A+Ox3, euthymic affect Lymphatic: no lymphedema Results & Data Results & Data ([facility]) Vital Signs (Past 12 Hours) Vital Signs Temp Pulse Resp BP Pulse Ox 07/13/20 07:15 36.3 C L 59 L 18 148/83 H 93 07/13/20 05:00 36.3 C L 57 L 18 151/88 H 99 07/12/20 23:09 36.6 C 66 18 122/78 97 Laboratory Results 07/13/20 06:53 07/13/20 06:53 Diagnostic Findings CXR reviewed-improving bilat airspace opacities, small pleural effusions PG Care Time/CCT Total # of Minutes Spent Total Time Spent with Patient: Total time spent is greater than 50% in coordinat ion of care (as documented) at patient's floor/unit and/or counseling patient: Coding Level of Care Code 88625 Subseq Hosp Care Lvl 3 Diagnoses Acute respiratory failure with hypoxia J96.01 Multifocal pneumonia J18.9 Atrial fibrillation with RVR I48.91 Ischemic cardiomyopathy I25.5 Acute on chronic systolic ACC/AHA stage C congestive heart failure I50.23 Hyperglycemia due to type 2 diabetes mellitus E11.65 Intractable hiccups R06.6 Gout M10.9 Hypertension I10 Coronary artery disease I25.10 Dyslipidemia E78.5 GERD (gastroesophageal reflux disease) K21.9 DVT prophylaxis Z29.9
[2020-07-13] MEDS: PANTOprazole 40 MG TAB PO SCH (11:22)
[2020-07-13] MEDS ORDERED: OPTIRAY 320 125ml IV ONE (11:51)
[2020-07-13] MEDS: OXYMETAZOLINE 0.05% 30 ML BTL NAE PRN ×2 (12:08→13:45)
--- NOTE | 2020-07-13 12:19 | CT Scan Report ---
CT ANGIOGRAPHY OF THE CHEST, PULMONARY EMBOLUS PROTOCOL CLINICAL HISTORY: Shortness of breath. COMPARISON STUDY: Chest radiograph July 06, 2020 and July 13, 2020. TECHNIQUE: Following IV administration of 120 mL of Optiray-320, helical axial images of the chest we re obtained utilizing the pulmonary embolus protocol. Maximal intensity projections and sagittal and coronal reformats were viewed on an independent 3D workstation. IV contrast was administered withou t complication. Automated exposure control was utilized for the study. A dose lowering technique wa s utilized adhering to the principles of ALARA. CT DOSE: 499.24 mGycm FINDINGS: No pulmonary emboli are identified. Note is made of moderate cardiomegaly and coronary art tessa calcification. There is no pericardial effusion. No enlarged thoracic lymph nodes are noted. Mode rate multifocal groundglass opacities have improved since chest radiograph of July 06, 2020. Lower lung predominant bronchiectasis and subpleural reticulation have significantly increased since abdom inal CT of September 16, 2019. There is no pneumothorax or pleural effusion. Incidental note is made of b ilateral gynecomastia. Bony thorax is unremarkable. Upper abdomen is unremarkable. IMPRESSION: 1. No pulmonary emboli identified. 2. Multifocal groundglass opacities within the lungs consistent with an infectious process. Significa nt improvement since chest radiograph of July 06, 2020. 3. Significant progression of lower lung predominant bronchiectasis and subpleural reticulation sugge stive of interstitial lung disease since abdominal CT of September 16, 2019. 4. Moderate cardiomegaly. ACT 112: Negative or not required by law. Electronically signed by: Rafa Fontana M.D. 07/13/2020 12:17 PM
[2020-07-13] MEDS ORDERED: INSULIN HUMAN NPH SC ONE (12:30)
[2020-07-13] MEDS: ALBUT/IPRATROP 3MG/0.5MG NEB 3 ML VIAL NEB SCH ×2 (13:13→20:02)
--- NOTE | 2020-07-13 14:31 | Pharmacy Report ---
Glycemic Control Progress Note - Date of Service July 13, 2020 - Scope Glycemic Pharmacist consulted for glycemic control to write orders per [facility] inpatient glycemic control protocol. - Objective Accuchecks BSG(last 24 hours):: 07/12/20 07/12/20 07/12/20 16:33 19:58 23:15 Glucose POC Glucose 181 H 301 H* 108 H 07/13/20 07/13/20 07/13/20 06:53 07:30 07:31 Glucose 33 L* POC Glucose 36 L* 31 L* 07/13/20 07/13/20 07/13/20 07:50 08:07 09:07 Glucose POC Glucose 53 L* 55 L* 156 H 07/13/20 11:10 Glucose POC Glucose 254 H - Recent Pertinent Medications The patient is currently receiving: * Basal insulin: NPH 22 units SQ daily plus 16 units SQ HS * Correctional Insulin: Novolog Correction per scale ACHS Goal Range: Low 110 mg/dL - High 140 mg/dL Correction Factor: 15 mg/dL/unit * Prandial insulin: Per carb ratio of 1 unit per 5 grams CHO consumed - Outpatient Anti-Diabetic Meds Novolog 70/30 --> 25 units in the morning and 30 units in the evening - Assessment & Plan ASSESSMENT: * See progress note from 07/06/20 for more background info, in short: * Pt receiving SQ basal bolus insulin regimen for hyperglycemia secondary to baseline DM (outpatient regimen on hold). Patient is on prednisone 30 mg d aily. * Patient is currently receiving an average of 102 units of insulin per day * 64 units of basal insulin * 68 units of prandial/correctional insulin * BSGs ranging 108 - 301 mg/dl over the past 24hrs * Changes needed to insulin regimen: * AM Fasting BSG = 36 mg/dl. This is in below goal range for patient based on inpatient targets and co-morbidities. This was not an expected fasting BSG result. As discussed previously, the NPH 16 units was expected to be sufficient for 07/12 into 07/13 as it was NOT sufficient from 07/11 to 07/12. (BSG went from 159 to 259 mg/dL) with a steroid decrease. NPH this morning was held by nursing. Patient's BSG increased to 254 mg/dL and only expect further increase. Will give patient's total NPH dose at noon to prevent wide fluctuations. This represents a 50% reduction in basal insulin which is appropriate considering the hypoglycemic episode. * Post-prandial BSGs were elevated yesterday. Perhaps patient received too much correctional? Loosened CF to 20 to prevent overcorrection. For HS, loosened CF even further to 25. Patient did receive 11 units at HS for BSG of 201 mg/dL so this may have contributed to hypoglycemic episode this morning. No carbohydrate ratio at HS. * Total daily dose = ? units. Expect it to be around 70ish units. PLAN FOR INPATIENT GLYCEMIC CONTROL: * NPH 18 units at lunch then basal dosing TBD * LOOSENING correction factor to 20 mg/dl/unit (25 mg/dL/unit with bedtime) * CONTINUING carb ratio to 1 unit per 5 grams CHO consumed * Continuing goal range of Low 110 mg/dL - High 140 mg/dL * Please note that the plan above was derived based on current level of insulin resistance and hospital stress. These recommendations are appropriate for inpatient admission only. Plan of care upon discharge will need to be reassessed to avoid potential outpatient hypo/hyperglycemia. Thank you.
[2020-07-13] MEDS: DULoxetine HCL 30 MG CAP PO SCH (21:13)
[2020-07-13] MEDS: ATORVASTATIN 10 MG TAB PO SCH (21:13)
[2020-07-14] MEDS: INSULIN ASPART 100 UNITS/ML 3 ML PEN SC SCH ×6 (00:16→21:14)
[2020-07-14] MEDS: ALBUT/IPRATROP 3MG/0.5MG NEB 3 ML VIAL NEB SCH ×4 (00:53→19:06)
[2020-07-14 06:59] LABS: BUN Creatinine Ratio 43.9 (10-20); Calcium 9.9 mg/dl (8.5-10.1); Creatinine Clr Calc Pharmacy 59.9 ml/min; Est GFR (African American) 67.2; Potassium 4.1 mmol/L (3.5-5.1)
[2020-07-14] MEDS: ASPIRIN 81 MG ECTAB PO SCH (07:56)
[2020-07-14] MEDS: ISOSORBIDE MONO EXTENDED REL 30 MG TABCR PO SCH (07:57)
[2020-07-14] MEDS: CLOPIDOGREL BISULFATE 75 MG TAB PO SCH (07:57)
[2020-07-14] MEDS: DOCUSATE SODIUM 100 MG CAP PO SCH (07:57)
[2020-07-14] MEDS: BUMETANIDE 1 MG TAB PO SCH (07:58)
[2020-07-14] MEDS: METOPROLOL SUCC 50MG EXT REL TAB PO SCH ×2 (07:58→20:34)
[2020-07-14] MEDS: predniSONE 10 MG TABLET PO SCH (07:58)
[2020-07-14] MEDS: BACLOFEN 10 MG TAB PO SCH ×2 (08:00→20:33)
[2020-07-14] MEDS: CALCIUM 600MG + VIT D 400 IU TAB PO SCH (08:01)
[2020-07-14] MEDS: PANTOprazole 40 MG TAB PO SCH (08:01)
[2020-07-14] MEDS: ENOXAPARIN INJ 40 MG/0.4 ML SYR SQ SCH (08:02)
[2020-07-14] MEDS: ARTIFICIAL TEARS OP OINT 3.5 GM TUBE OP SCH ×4 (08:03→21:20)
[2020-07-14] MEDS: allopurinoL 300 MG TAB PO SCH (08:03)
[2020-07-14] MEDS ORDERED: INSULIN GLARGINE SOLOSTAR 100 UNITS/ML 3 ML PEN SC SCH (09:00)
--- NOTE | 2020-07-14 12:30 | Pharmacy Report ---
Glycemic Control Progress Note - Date of Service July 14, 2020 - Scope Glycemic Pharmacist consulted for glycemic control to write orders per [facility] inpatient glycemic control protocol. - Objective Accuchecks BSG(last 24 hours):: 07/13/20 07/13/20 07/13/20 16:24 16:27 16:40 Glucose POC Glucose 426 H* 390 H* 373 H* 07/13/20 07/13/20 07/13/20 19:43 19:48 20:58 Glucose POC Glucose 306 H* 293 H 293 H 07/14/20 07/14/20 07/14/20 00:05 04:20 06:09 Glucose 177 H POC Glucose 200 H 212 H 07/14/20 07/14/20 07:51 11:17 Glucose POC Glucose 151 H 223 H - Recent Pertinent Medications The patient is currently receiving: * Basal insulin: NPH 18 units SQ x 1 * Correctional Insulin: Novolog Correction per scale ACHS Goal Range: Low 110 mg/dL - High 140 mg/dL Correction Factor: 20 mg/dL/unit (25 mg/dL/unit for HS) * Prandial insulin: Per carb ratio of 1 unit per 5 grams CHO consumed (removed for HS) - Outpatient Anti-Diabetic Meds Novolin 70/30 --> 25 units in the morning and 30 units in the evening - Assessment & Plan ASSESSMENT: * See progress note from 07/05/20 for more background info, in short: * Pt receiving SQ basal bolus insulin regimen for hyperglycemia secondary to baseline DM (outpatient regimen on hold). Patient is also receiving prednisone 30 mg daily. * Patient is currently receiving an average of 64 units of insulin per day * 18 units of basal insulin * 46 units of prandial/correctional insulin * BSGs ranging 36 - 373 mg/dl over the past 24hrs * Changes needed to insulin regimen: * AM Fasting BSG = 155 mg/dl. This is in goal range for patient based on inpatient targets and co-morbidities. The patient's blood sugars yesterday fluctuated greatly. They did stabilize overnight to the low 200s. Due to t his wide fluctuation (which has been demonstrated over numerous days), decision was made to transition patient to Lantus which does not peak like NPH. Will start with Lantus 18 units even though patient received additional 5 units overnight) and tighten CF to provide a little more insulin. * Post-prandial BSGs were elevated yesterday. Tighten CF as mentioned about but continue CR of 5. * Total daily dose = 60-70 units. Adjusted insulin doses PLAN FOR INPATIENT GLYCEMIC CONTROL: * CHANGING to Lantus 18 units SQ daily * TIGHTENING correction factor to 18 mg/dl/unit * Continuing carb ratio of 1 unit per 5 grams CHO consumed * Continuing goal range of Low 110 mg/dL - High 140 mg/dL * Please note that the plan above was derived based on current level of insulin resistance and hospital stress. These recommendations are appropriate for inpatient admission only. Plan of care upon discharge will need to be reassessed to avoid potential outpatient hypo/hyperglycemia. Thank you.
--- NOTE | 2020-07-14 18:12 | Hospitalist Progress Note ---
Date of Service July 14, 2020 Assessment & Plan (1) Acute respiratory failure with hypoxia: Acute respiratory failure with hypoxia/multifocal pneumonia/worsening fibrosis--improved significantly with diuresis, CXR improved on 07/13, and now weaned down to 2LNC With nasal congestion from O2 as well improved with Afrin ALso contributing is a component of acute on chronic systolic heart failure could consider amiodarone pulmonary toxicity? 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 completed 5 days of Aztreonam, no convincing evidence of bacterial infection -Continue prednisone with slow taper given fibrosis on CT and possible pulmonary toxicity would go down by 10mg every 7 days until off, currently on 30mg daily starting 07/12 -hold Bumex in AM for rising BUN -continue Duonebs to q6 hours scheduled as was wheezing-now resolved -continue Afrin for nasal congestion x 6 doses max -needs outpt f/u with PULM for fibrosis (2) Multifocal pneumonia: See above just recovered from COVID completed Aztreonam, 5 days Prednisone taper as above, drop by 10mg every [address] (3) Atrial fibrillation with RVR: History of atrial fibrillation with RVR/ischemic cardiomyopathy/hyp ertension-remains in sinus rhythm here stopped amiodarone this admission-last admission he was only in afib for 24-48 hours and then converted cardiology had recommended to stay on amiodarone daily for about one month then stop Continue aspirin 81 mg daily, clopidogrel 75 mg p.o. daily, isosorbide mononitrate 30 mg p.o. daily and metoprolol succinate 50 mg p.o. twice daily Continue to Hold lisinopril as BP low normal, resume when hypertensive per cardiology last visit, no need for anticoagulation as this was isolated event (4) Ischemic cardiomyopathy: LVEF 30% based on echocardiogram from 08/2019 (5) Acute on chronic systolic ACC/AHA stage C congestive heart failure: volume overloaded on exam on admission great response to Bumex 2mg IV BID Cr and K are stable fluid restriction to 1500mL daily now hold Bumex 2mg PO daily for rising BUN (6) Hyperglycemia due to type 2 diabetes mellitus: Glycemic pharmacy control managing Had severe hypoglycemia as well as hyperglycemia to the 400s in the last 24 hours (7) Intractable hiccups: Continue Baclofen (8) Gout: No acute issues Continue allopurinol (9) Hypertension: Blood pressures are controlled Continue Bumex, isosorbide, Toprol-XL Holding lisinopril (10) Coronary artery disease: No acute issues Continue aspirin, atorvastatin, metoprolol (11) Dyslipidemia: Continue atorvastatin (12) GERD (gastroesophageal reflux disease): Noted in chart but not on medication for this Added Protonix while taking steroids (13) DVT prophylaxis: Lovenox SQ Disposition-improving, transfer to med/surg, likely back to the care home tomorrow Admission and Anticipated Discharge Date Admission Date: July 06, 2020 Subjective Pt reports he saved two specimen cups for me from last night to observe: one is some yellow sputum and the other cup contains about 50mL of brownish clear vomitus. Otherwise, feels SOB is improved. He is weaned down to 2LNC. No chest pain. Stuffy nose is improved with Afrin NSR rates 70s-80s on tele Review of Systems Review of Systems: All systems reviewed & are unremarkable except as noted in HPI & below Physical Exam Constitutional: WD/WN, vitals as above Eyes: + anicteric sclerae Neck: trachea midline, no thyromegaly Respiratory: normal respiratory effort Auscultation: + diminished lung sounds (throughout) and + crackles (Bibasilar); no rhonchi Cardiovascular: RRR, no murmur, no edema Chest (Breasts): Chest: normal inspection of chest Gastrointestinal (Abdomen): normal bowel sounds, soft, nontender, no hepatosplenomegaly Musculoskeletal: Extremities: extremities normal to inspection; no cyanosis and no clubbing Skin: no rashes, warm and dry Neurologic: moves all extremities and awake; no focal motor deficits Psychiatric: A+Ox3, euthymic affect Lymphatic: no lymphedema Results & Data Results & Data ([facility]) Vital Signs (Past 12 Hours) Vital Signs Temp Pulse Resp BP Pulse Ox 01/27/21 15:36 36.3 C L 83 20 119/80 93 07/14/20 13:18 80 16 94 07/14/20 11:28 37.0 C 68 20 134/77 93 07/14/20 08:06 36.8 C 68 20 127/83 90 07/14/20 07:34 63 16 98 Laboratory Results 07/14/20 07/14/20 07/14/20 Range/Units 20:40 15:22 15:21 Sodium (136-145) mmol/L Potassium (3.5-5.1) mmol/L Chloride (98-107) mmol/L Carbon Dioxide (21-32) mmol/L Anion Gap (3-11) BUN (7-18) mg/dl Creatinine (0.6-1.4) mg/dl Est Cr Clr Drug Dosing ml/min Est GFR ( Amer) Est GFR (Non-Af Amer) BUN/Creatinine Ratio (10-20) Glucose (70-99) mg/dl POC Glucose 257 H 296 H 321 H* (70-99) mg/dl Calcium (8.5-10.1) mg/dl 07/14/20 07/14/20 07/14/20 Range/Units 11:17 07:51 06:09 Sodium 131 L (136-145) mmol/L Potassium 4.1 (3.5-5.1) mmol/L Chloride 87 L (98-107) mmol/L Carbon Dioxide 36 H (21-32) mmol/L Anion Gap 8.0 (3-11) BUN 53 H (7-18) mg/dl Creatinine 1.20 (0.6-1.4) mg/dl Est Cr Clr Drug Dosing 59.9 ml/min Est GFR ( Amer) 67.2 Est GFR (Non-Af Amer) 58.0 BUN/Creatinine Ratio 43.9 H (10-20) Glucose 177 H (70-99) mg/dl POC Glucose 223 H 151 H (70-99) mg/dl Calcium 9.9 (8.5-10.1) mg/dl 07/14/20 07/14/20 Range/Units 04:20 00:05 Sodium (136-145) mmol/L Potassium (3.5-5.1) mmol/L Chloride (98-107) mmol/L Carbon Dioxide (21-32) mmol/L Anion Gap (3-11) BUN (7-18) mg/dl Creatinine (0.6-1.4) mg/dl Est Cr Clr Drug Dosing ml/min Est GFR ( Amer) Est GFR (Non-Af Amer) BUN/Creatinine Ratio (10-20) Glucose (70-99) mg/dl POC Glucose 212 H 200 H (70-99) mg/dl Calcium (8.5-10.1) mg/dl PG Care Time/CCT Total # of Minutes Spent Total Time Spent with Patient: Total time spent is greater than 50% in coordination of care (as documented) at patient's floor/unit and/or counseling patient: Coding Level of Care Code 88799 Subseq Hosp Care Lvl 3 Diagnoses Acute respiratory failure with hypoxia J96.01 Multifocal pneumonia J18.9 Atrial fibrillation with RVR I48.91 Ischemic cardiomyopathy I25.5 Acute on chronic systolic ACC/AHA stage C congestive heart failure I50.23 Hyperglycemia due to type 2 diabetes mellitus E11.65 Intractable hiccups R06.6 Gout M10.9 Hypertension I10 Coronary artery disease I25.10 Dyslipidemia E78.5 GERD (gastroesophageal reflux disease) K21.9 DVT prophylaxis Z29.9
[2020-07-14] MEDS: DULoxetine HCL 30 MG CAP PO SCH (20:33)
[2020-07-14] MEDS: ATORVASTATIN 10 MG TAB PO SCH (20:34)
[2020-07-15] MEDS: ALBUT/IPRATROP 3MG/0.5MG NEB 3 ML VIAL NEB SCH ×4 (00:35→19:01)
[2020-07-15 07:01] LABS: BUN Creatinine Ratio 36.7 (10-20); Creatinine Clr Calc Pharmacy 56.2 ml/min; Est GFR (African American) 62.2; Est GFR (Non-African American) 53.6
[2020-07-15 07:16] LABS: Beta-Hydroxybutyrate 0.94 mg/dl (0.2-2.81)
[2020-07-15] MEDS ORDERED: INSULIN GLARGINE SOLOSTAR 100 UNITS/ML 3 ML PEN SC SCH (09:00)
[2020-07-15] MEDS: OXYMETAZOLINE 0.05% 30 ML BTL NAE PRN (09:01)
[2020-07-15] MEDS: DOCUSATE SODIUM 100 MG CAP PO SCH (09:02)
[2020-07-15] MEDS: BACLOFEN 10 MG TAB PO SCH ×2 (09:02→21:14)
[2020-07-15] MEDS: ARTIFICIAL TEARS OP OINT 3.5 GM TUBE OP SCH ×4 (09:03→21:15)
[2020-07-15] MEDS: INSULIN ASPART 100 UNITS/ML 3 ML PEN SC SCH ×4 (09:05→21:17)
[2020-07-15] MEDS: ENOXAPARIN INJ 40 MG/0.4 ML SYR SQ SCH (10:00)
[2020-07-15] MEDS: CALCIUM 600MG + VIT D 400 IU TAB PO SCH (10:00)
[2020-07-15] MEDS: CLOPIDOGREL BISULFATE 75 MG TAB PO SCH (10:00)
[2020-07-15] MEDS: ISOSORBIDE MONO EXTENDED REL 30 MG TABCR PO SCH (10:00)
[2020-07-15] MEDS: allopurinoL 300 MG TAB PO SCH (10:01)
[2020-07-15] MEDS: ASPIRIN 81 MG ECTAB PO SCH (10:01)
[2020-07-15] MEDS: PANTOprazole 40 MG TAB PO SCH (10:01)
[2020-07-15] MEDS: predniSONE 10 MG TABLET PO SCH (10:01)
[2020-07-15] MEDS: METOPROLOL SUCC 50MG EXT REL TAB PO SCH ×2 (10:01→21:14)
[2020-07-15] MEDS: COUGH DROP (SUGAR FREE) LOZ 24 LOZ/1 BOX BUCCAL PRN ×2 (12:09→18:04)
--- NOTE | 2020-07-15 12:29 | Pharmacy Report ---
Pharmacy Glycemic Short Note 2 - Date of Service July 15, 2020 - Glycemic Short BSG Results (Last 24 hours): 07/14/20 07/14/20 07/14/20 15:21 15:22 20:40 Glucose POC Glucose 321 H* 296 H 257 H 07/15/20 07/15/20 07/15/20 05:44 08:17 12:13 Glucose 309 H* POC Glucose 226 H 227 H OUTPATIENT ANTIDIABETIC REGIMEN: * Novolog 70/30 insulin - 25 units qAM + 30 units qPM * Regular insulin - sliding scale * A1c = 10.4% (06/19/20) ASSESSMENT: 07/15 * Patient received total of 82 units of insulin yesterday, of which only 18 were basal insulin * Fasting BSG trending upward 226 mg/dL this AM - increased basal insulin this AM ~35% * Patient had low BSG 07/13 AM, and since then we have been slowly titrating basal insulin back up. Had switched to Lantus yesterday to hopefully provide better control * Continues on prednisone 30 mg daily, CR tightened this AM as yesterday BSGs trended upward, likely due to steroids PLAN FOR INPATIENT GLYCEMIC CONTROL: * Basal insulin * Lantus 25 units daily * Bolus insulin * NovoLog per scale ACHS or Q6hrs while NPO * Goal Range: Low 110 mg/dL - High 140 mg/dL * Correction Factor: 18 mg/dL/unit * loosen Carb ratio of 1 unit per 4 grams CHO consumed
--- NOTE | 2020-07-15 15:07 | Hospitalist Progress Note ---
Date of Service July 15, 2020 Assessment & Plan (1) Acute respiratory failure with hypoxia: Acute respiratory failure with hypoxia/multifocal pneumonia/worsening fibrosis--improved significantly with diuresis, CXR improved on 07/13, and now weaned down to 1LNC at rest, 3LNC with exertion as per 2 step on 07/15 With nasal congestion from O2 as well improved somewhat with Afrin but persists due to acute sinusitis ALso contributing is a component of acute on chronic systolic heart failure could consider amiodarone pulmonary toxicity? 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 completed 5 days of Aztreonam, no convincing evidence of bacterial infection of lungs -Continue prednisone with slow taper given fibrosis on CT and possible pulmonary toxicity would go down by 10mg every 7 days until off, currently on 30mg daily starting 07/12 -continue to hold Bumex for rising BUN -continue Duonebs to q6 hours scheduled as was wheezing-now resolved -continue Afrin for nasal congestion x 6 doses max -start Levaquin for acute sinusitis x 5 day course -needs outpt f/u with PULM for fibrosis (2) Multifocal pneumonia: See above just recovered from COVID completed Aztreonam, 5 days Prednisone taper as above, drop by 10mg every [address] (3) Atrial fibrillation with RVR: History of atrial fibrillation with RVR/ischemic cardiomyopathy/hypertension-remains in sinus rhythm here stopped amiodarone this admission-last admission he was only in afib for 24-48 hours and then converted cardiology had recommended to stay on amiodarone daily for about one month then stop Continue aspirin 81 mg daily, clopidogrel 75 mg p.o. daily, isosorbide mononitrate 30 mg p.o. daily and metoprolol succinate 50 mg p.o. twice daily ok to restart lisinopril per cardiology last visit, no need for anticoagulation as this was isolated event (4) Ischemic cardiomyopathy: LVEF 30% based on echocardiogram from 08/2019 restart lisinopril continue Toprol XL holding bumex (5) Acute on chronic systolic ACC/AHA stage C congestive heart failure: volume overloaded on exam on admission great response to Bumex 2mg IV BID Cr and K are stable fluid restriction to 1500mL daily now holding Bumex 2mg PO daily for rising BUN (6) Hyperglycemia due to type 2 diabetes mellitus: Glycemic pharmacy control managing Had severe hypoglycemia as well as hyperglycemia to the 400s-labile (7) Intractable hiccups: resolved Continue Baclofen (8) Gout: No acute issues Continue allopurinol (9) Hypertension: Blood pressures are controlled Continue Bumex, isosorbide, Toprol-XL restart lisinopril (10) Coronary artery disease: No acute issues Continue aspirin, atorvastatin, metoprolol (11) Dyslipidemia: Continue atorvastatin (12) GERD (gastroesophageal reflux disease): Noted in chart but not on medication for this Added Protonix while taking steroids (13) Sinusitis: adding Levaquin as above (14) DVT prophylaxis: Lovenox SQ Disposition-improving, continued stay, likely back to the intermediate tomorrow Admission and Anticipated Discharge Date Admission Date: July 06, 2020 Subjective Still c/o sinus congestion, blowing out thick yellow mucus, asking for an antibiotic. Some blood in the mucus also. SOB is much improved and had 2 step walk test today, only needs 1LNC with rest and 3LNC with ambulation. Review of Systems Review of Systems: All systems reviewed & are unremarkable except as noted in HPI & below no headache or facial pain, no fevers Physical Exam Constitutional: WD/WN, vitals as above Eyes: + anicteric sclerae ENMT: Ears: no hearing impairment Nose: no external nose abnormality Neck: trachea midline, no thyromegaly Respiratory: normal respiratory effort Auscultation: + crackles (Bibasilar); no rhonchi Cardiovascular: RRR, no murmur, no edema Chest (Breasts): Chest: normal inspection of chest Gastrointestinal (Abdomen): normal bowel sounds, soft, nontender, no he patosplenomegaly Musculoskeletal: Extremities: extremities normal to inspection; no cyanosis and no clubbing Skin: no rashes, warm and dry Neurologic: moves all extremities and awake; no focal motor deficits Psychiatric: A+Ox3, euthymic affect Lymphatic: no lymphedema Results & Data Results & Data ([facility]) Vital Signs (Past 12 Hours) Vital Signs Temp Pulse Pulse Pulse Pulse Pulse Pulse 07/15/20 13:21 76 07/15/20 12:02 94 H 101 H 96 H 99 H 93 H 07/15/20 08:01 61 07/15/20 07:36 36.5 C 65 Pulse Resp Resp Resp Resp Resp Resp 07/15/20 13:21 18 07/15/20 12:02 93 H 18 18 18 18 18 07/15/20 08:01 16 07/15/20 07:36 16 Resp BP Pulse Ox Pulse Ox Pulse Ox Pulse Ox Pulse Ox 07/15/20 13:21 93 07/15/20 12:02 18 90 88 L 91 86 L 07/15/20 08:01 96 07/15/20 07:36 128/80 94 Pulse Ox Pulse Ox 07/15/20 13:21 07/15/20 12:02 90 87 L 07/15/20 08:01 07/15/20 07:36 Laboratory Results 07/15/20 07/15/20 07/15/20 Range/Units 12:13 08:17 05:44 Sodium 132 L (136-145) mmol/L Potassium 4.0 (3.5-5.1) mmol/L Chloride 88 L (98-107) mmol/L Carbon Dioxide 42 H* (21-32) mmol/L Anion Gap 2.0 L (3-11) BUN 47 H (7-18) mg/dl Creatinine 1.28 (0.6-1.4) mg/dl Est Cr Clr Drug Dosing 56.2 ml/min Est GFR ( Amer) 62.2 Est GFR (Non-Af Amer) 53.6 BUN/Creatinine Ratio 36.7 H (10-20) Glucose 309 H* (70-99) mg/dl POC Glucose 227 H 226 H (70-99) mg/dl Calcium 9.0 (8.5-10.1) mg/dl Beta-Hydroxybutyric Acd 0.94 (0.2-2.81) mg/dl 07/14/20 07/14/20 07/14/20 Range/Units 20:40 15:22 15:21 Sodium (136-145) mmol/L Potassium (3.5-5.1) mmol/L Chloride (98-107) mmol/L Carbon Dioxide (21-32) mmol/L Anion Gap (3-11) BUN (7-18) mg/dl Creatinine (0.6-1.4) mg/dl Est Cr Clr Drug Dosing ml/min Est GFR ( Amer) Est GFR (Non-Af Amer) BUN/Creatinine Ratio (10-20) Glucose (70-99) mg/dl POC Glucose 257 H 296 H 321 H* (70-99) mg/dl Calcium (8.5-10.1) mg/dl Beta-Hydroxybutyric Acd (0.2-2.81) mg/dl PG Care Time/CCT Total # of Minutes Spent Total Time Spent with Patient: Total time spent is greater than 50% in coordination of care (as documented) at patient's floor/unit and/or counseling patient: Coding Level of Care Code 80784 Subseq Hosp Care Lvl 3 Diagnoses Acute respiratory failure with hypoxia J96.01 Multifocal pneumonia J18.9 Atrial fibrillation with RVR I48.91 Ischemic cardiomyopathy I25.5 Acute on chronic systolic ACC/AHA stage C congestive heart failure I50.23 Hyperglycemia due to type 2 diabetes mellitus E11.65 Intractable hiccups R06.6 Gout M10.9 Hypertension I10 Coronary artery disease I25.10 Dyslipidemia E78.5 GERD (gastroesophageal reflux disease) K21.9 Sinusitis J32.9 DVT prophylaxis Z29.9
[2020-07-15] MEDS: levoFLOXacin 500 MG TAB PO SCH (18:03)
[2020-07-15] MEDS: DULoxetine HCL 30 MG CAP PO SCH (21:14)
[2020-07-15] MEDS: ATORVASTATIN 10 MG TAB PO SCH (21:14)
[2020-07-16] MEDS: ALBUT/IPRATROP 3MG/0.5MG NEB 3 ML VIAL NEB SCH ×2 (00:54→08:05)
[2020-07-16 06:36] LABS: Basophils # (auto) 0.01 K/uL (0-0.2); Basophils % (auto) 0.1 %; Eosinophils # (auto) 0.01 K/uL (0-0.5); Eosinophils % (auto) 0.1 %; Hematocrit (blood only) 38.8 % (42-52); Hemoglobin 12.7 g/dL (14.0-18.0); Immature Granulocytes # (auto) 0.06 K/uL (0.00-0.02); Immature Granulocytes % (auto) 0.7 %; Lymphocytes # (auto) 1.19 K/uL (1.2-3.4); Lymphocytes % (auto) 14.2 %; Mean Corpuscular Hemoglobin 27.7 pg (25-34); Mean Corpuscular Hgb Conc 32.7 g/dL (32-36); Mean Corpuscular Volume 84.5 fL (80-100); Mean Platelet Volume 9.4 fL (7.4-10.4); Monocytes # (auto) 0.86 K/uL (0.11-0.59); Monocytes % (auto) 10.3 %; Neutrophils # (auto) 6.25 K/uL (1.4-6.5); Neutrophils % (auto) 74.6 %; Platelet Count 300 K/uL (130-400); RDW Coefficient of Variation 16.6 % (11.5-14.5); RDW Standard Deviation 51.5 fL (36.4-46.3); Red Blood Count 4.59 M/uL (4.7-6.1); White Blood Count 8.38 K/uL (4.8-10.8)
[2020-07-16 07:12] LABS: BUN Creatinine Ratio 31.5 (10-20); Calcium 8.9 mg/dl (8.5-10.1); Est GFR (African American) 64.6; Est GFR (Non-African American) 55.7; Magnesium 2.2 mg/dl (1.8-2.4); Potassium 4.4 mmol/L (3.5-5.1)
[2020-07-16] MEDS: ARTIFICIAL TEARS OP OINT 3.5 GM TUBE OP SCH ×2 (08:58→12:34)
[2020-07-16] MEDS: METOPROLOL SUCC 50MG EXT REL TAB PO SCH (09:00)
[2020-07-16] MEDS: PANTOprazole 40 MG TAB PO SCH (09:00)
[2020-07-16] MEDS: ISOSORBIDE MONO EXTENDED REL 30 MG TABCR PO SCH (09:00)
[2020-07-16] MEDS: allopurinoL 300 MG TAB PO SCH (09:00)
[2020-07-16] MEDS ORDERED: INSULIN GLARGINE SOLOSTAR 100 UNITS/ML 3 ML PEN SC SCH (09:00)
[2020-07-16] MEDS: predniSONE 10 MG TABLET PO SCH (09:00)
[2020-07-16] MEDS ORDERED: lisinopril 2.5 MG TAB PO SCH (09:00)
[2020-07-16] MEDS: ASPIRIN 81 MG ECTAB PO SCH (09:01)
[2020-07-16] MEDS: CALCIUM 600MG + VIT D 400 IU TAB PO SCH (09:01)
[2020-07-16] MEDS: CLOPIDOGREL BISULFATE 75 MG TAB PO SCH (09:01)
[2020-07-16] MEDS: ENOXAPARIN INJ 40 MG/0.4 ML SYR SQ SCH (09:02)
[2020-07-16] MEDS: INSULIN ASPART 100 UNITS/ML 3 ML PEN SC SCH ×2 (09:04→12:34)
[2020-07-16] MEDS: DOCUSATE SODIUM 100 MG CAP PO SCH (09:08)
[2020-07-16] MEDS: BACLOFEN 10 MG TAB PO SCH (09:08)
[2020-07-16] MEDS ORDERED: ALBUT/IPRATROP 3MG/0.5MG NEB 3 ML VIAL NEB PRN (10:07)
--- NOTE | 2020-07-16 10:32 | Pharmacy Report ---
Pharmacy Glycemic Short Note 2 - Date of Service July 16, 2020 - Glycemic Short BSG Results (Last 24 hours): 07/15/20 07/15/20 07/15/20 12:13 17:26 20:46 Glucose POC Glucose 227 H 94 202 H 07/16/20 07/16/20 06:21 08:15 Glucose 246 H POC Glucose 258 H OUTPATIENT ANTIDIABETIC REGIMEN: * Novolog 70/30 insulin - 25 units qAM + 30 units qPM * Regular insulin - sliding scale * A1c = 10.4% (06/19/20) ASSESSMENT: 07/16 * Patient received total of 95 units of insulin yesterday, of which 25 were basal * BSGs better controlled, however still in 200s most of the day * Fasting BSG 246 mg/dL - will continue to increase basal this AM and aim for more of 40/60% split with basal/bolus insulin while on steroids * As we titrate up insulin, likely will need to scale back CF/CR 07/15 * Patient received total of 82 units of insulin yesterday, of which only 18 were basal insulin * Fasting BSG trending upward 226 mg/dL this AM - increased basal insulin this AM ~35% * Patient had low BSG 07/13 AM, and since then we have been slowly titrating basal insulin back up. Had switched to Lantus yesterday to hopefully provide better control * Continues on prednisone 30 mg daily, CR tightened this AM as yesterday BSGs trended upward, likely due to steroids PLAN FOR INPATIENT GLYCEMIC CONTROL: * Basal insulin * Lantus 35 units daily * Bolus insulin * NovoLog per scale ACHS or Q6hrs while NPO * Goal Range: Low 110 mg/dL - High 140 mg/dL * Correction Factor: 15 mg/dL/unit * loosen Carb ratio of 1 unit per 4 grams CHO consumed PLAN FOR DISCHARGE: * HbA1c = 10.4% from 06/18/20 and goal HbA1c for this patient would be < 8%. * Steroids have been ongoing since this admission, therefore hard to assess insulin needs at discharge * On last admission 07/02/20 with no steroids, patient requiring closer to ~50-60 units which is similar to home insulin regimen * Patient's BSGs very labile during this admission, unclear if related to infection/steroids/PO intake etc. Switched over to once daily Lantus instead of NPH BID dosing to hopefully provide better control * Will continue to follow to determine plan with insulin on discharge
[2020-07-16] MEDS: levoFLOXacin 500 MG TAB PO SCH (12:34)
--- NOTE | 2020-07-16 13:37 | Discharge Summary ---
Date of Service July 16, 2020 Admission HPI Per Admitting Provider The patient is a 75-year-old male with a past medical history including candidiasis of mouth and esophagus, paroxysmal atrial fibrillation with RVR, history of splenectomy, hyponatremia, mitral vegetation, intractable hiccups, hyperglycemia due to diabetes mellitus type 2, pneumonia due to COVID-19 virus, hypoglycemia, sleep apnea-like behavior, abnormal liver function test, gout, history of stented coronary artery, elevated troponin, acute on chronic stage C CHF, ischemic, cardiomyopathy and non-STEMI. He was most recently admitted to [facility] from June 18 through July 05, 2020 for treatment of COVID-19 pneumonia with hypoxia and acute respiratory failure. He was just discharged earlier in the day, as noted above, he reports became acutely short of breath [facility], at which point he was brought back to the emergency department. Principal Diagnosis Acute respiratory failure with hypoxia, Pneumonia, Acute sinusitis, Acute on chronic systolic CHF Discharge Exam Constitutional WD/WN, vitals as above Eyes + anicteric sclerae ENMT Ears: no hearing impairment Nose: no external nose abnormality Neck trachea midline, no thyromegaly Respiratory normal respiratory effort Auscultation: + crackles (Bibasilar); no rhonchi Cardiovascular RRR, no murmur, no edema Chest (Breasts) Chest: normal inspection of chest Gastrointestinal (Abdomen) normal bowel sounds, soft, nontender, no hepatosplenomegaly Musculoskeletal Extremities: extremities normal to inspection; no cyanosis and no clubbing Skin no rashes, warm and dry Neurologic moves all extremities and awake; no focal motor deficits Psychiatric A+Ox3, euthymic affect Lymphatic no lymphedema Discharge Data Allergies Allergy/AdvReac Type Severity Reaction Status Date / Time Sulfa (Sulfonamide Allergy Mild Unknown Verified 07/06/20 02:05 Antibiotics) Penicillins Allergy Unknown . Verified 07/06/20 02:05 atorvastatin AdvReac Intermediate elevated Verified 07/06/20 02:05 LFT's Consultations 07/06/20 01:59 ED Decision to Admit Stat 07/06/20 05:54 Consult Case Management - Discharge Planning Routine Ordered Studies 07/13/20 10:59 CT angio chest PE protocol Stat CXR x 2 Hospital Course (1) Acute respiratory failure with hypoxia: Acute respiratory failure with hypoxia/multifocal pneumonia/worsening fibrosis--improved significantly with diuresis, CXR improved on 07/13, and now weaned down to 1LNC at rest, 3LNC with exertion as per two step walk test on 07/15 With nasal congestion from O2 as well improved somewhat with Afrin but persists due to acute sinusitis ALso contributing is a component of acute on chronic systolic heart failure could consider amiodarone pulmonary toxicity? 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 completed 5 days of Aztreonam, no convincing evidence of bacterial infection of lungs -Continue prednisone with slow taper given fibrosis on CT and possible pulmonary toxicity would go down by 10mg every 7 days until off, currently on 30mg daily starting 07/12 -Diuresed with IV BUmex and got a lot of fluid off, now dc on usual home bumex 1mg po daily -received Duonebs q6 hours scheduled as was wheezing-now resolved -start Levaquin for acute sinusitis x 7 day course and improved nasal congestion -needs outpt f/u with PULM for fibrosis in 1 month (2) Multifocal pneumonia: See above just recovered from COVID completed Aztreonam, 5 days Prednisone taper as above, drop by 10mg every [address] (3) Atrial fibrillation with RVR: History of atrial fibrillation with RVR/ischemic cardiomyopathy/hypertension-remains in sinus rhythm here stopped amiodarone this admission-last admission he was only in afib for 24-48 hours and then converted cardiology had recommended to stay on amiodarone daily for about one month then stop Continue aspirin 81 mg daily, clopidogrel 75 mg p.o. daily, isosorbide mononitrate 30 mg p.o. daily and metoprolol succinate 50 mg p.o. twice daily per cardiology last visit, no need for anticoagulation as this was isolated event (4) Ischemic cardiomyopathy: LVEF 30% based on echocardiogram from 08/2019 continue lisinopril continue Toprol XL continue home po bumex (5) Acute on chronic systolic ACC/AHA stage C congestive heart failure: volume overloaded on exam on admission great response to Bumex 2mg IV BID Cr and K are stable bumex as above (6) Hyperglycemia due to type 2 diabetes mellitus: Had severe hypoglycemia as well as hyperglycemia to the 400s-labile On Novolin 70/30 bid at [facility] but will increase to 35 units bid and taper down if needed as prednisone taper goes down (7) Intractable hiccups: resolved Continue Baclofen (8) Gout: No acute issues Continue allopurinol (9) Hypertension: Blood pressures are controlled Continue Bumex, isosorbide, Toprol-XL continue lisinopril (10) Coronary artery disease: No acute issues Continue aspirin, atorvastatin, metoprolol (11) Dyslipidemia: Continue atorvastatin (12) GERD (gastroesophageal reflux disease): Noted in chart but not on medication for this Added Protonix while taking steroids x 1 month (13) Sinusitis: Levaquin as above (14) DVT prophylaxis: Lovenox SQ Disposition-improving, stable for dc to [facility], discussed care with [facility] physician Dr. Harrington Total Time Total Time Spent Total Time Spent (In Minutes): 35 min Total Time Includes: Examination of the Patient, Discharge Planning and Medication Reconciliation Discharge Plan Discharge Items [facility] Disposition: [facility] Reason For Visit: MULTIFOCAL PNEUMONIA W/ HYPOXIA, HX COVID-19 Discharge Diagnosis: Acute respiratory failure with hypoxia, Acute on chronic systolic CHF, Pneumonia, Sinusitis Condition on Discharge: Good Activity: As commented below Lifting: Gradually increase as tolerated Bathing: No limitations Exercise/Sports: Gradually increase as tolerated Non-emergency contact: Primary Care Provider Call non-emergency contact if: you have any medication questions, your symptoms worsen and you have a fever Follow-up/Referrals: Ken Inman MD [Physician] - (Please follow up with Pulmonology in [address] Chest, fibrosis) Cheyenne MERRILL [Primary Care Provider] - Diet: Carb Consistent or DM2 and Low Sodium (2gm) Addtl Attending Provider Instructions: Continue Levaquin 500mg daily x 5 more days for your sinusitis. Continue the long, slow prednisone taper for your pneumonia and hypoxia-decrease by 10mg daily every 7 days. Please follow up with Pulmonology in [address] your abnormal [address] Chest that shows significant fibrosis at lung bases. You were diuresed with IV Bumex and now back on your usual Bumex 1mg by mouth daily. You are still requiring 1 LNC of Oxygen at rest and 3LNC with exertion. This can be weaned off over time. You rblood glucose has been labile due to steroid use and will need close monitoring with appropriate adjustments in insulin regimen as prednisone is tapered downward. Pending Studies at Discharge: No Stand-Alone Forms: [facility] Skilled Items Patient informed of condition?: Yes Discharge Level of Care: Other Communicable Disease: No Discharge Prognosis: Improving Lines: None Urinary Catheter: No Medications and DC Order Prescriptions: New prednisone 10 mg Tablet 30 mg PO QAM 16 Days Qty: 27 RF: 0 pantoprazole 40 mg Tablet,Delayed Release (Dr/Ec) 40 mg PO QAM Qty: 30 RF: 0 levofloxacin 500 mg Tablet 500 mg PO DAILY@1100 Qty: 5 RF: 0 Continued nitroglycerin [Nitrostat] 0.4 mg Tablet, Sublingual 0.4 mg sublingual UD PRN (Reason: Chest Pain) RF: 0 aspirin 81 mg Tablet,Delayed Release (Dr/Ec) 81 mg PO QAM RF: 0 allopurinol 300 mg Tablet 150 mg PO QAM RF: 0 metoprolol succinate 50 mg tablet extended release 24 hr 50 mg PO BID RF: 0 clopidogrel [Plavix] 75 mg Tablet 75 mg PO DAILY RF: 0 Caltrate 600 plus D 600 mg (1,500 mg)-800 unit Tablet,Chewable 1 tab PO DAILY RF: 0 atorvastatin 10 mg Tablet 10 mg PO HS RF: 0 isosorbide mononitrate 30 mg Tablet Extended Release 24 Hr 30 mg PO DAILY RF: 0 baclofen 10 mg Tablet 10 mg PO BID RF: 0 bumetanide 1 mg Tablet 1 mg PO DAILY RF: 0 docusate sodium 250 mg Capsule 250 mg PO DAILY RF: 0 celecoxib 100 mg Capsule 100 mg PO DAILY RF: 0 duloxetine 30 mg Capsule,Delayed Release(Dr/Ec) 30 mg PO HS RF: 0 lisinopril 5 mg Tablet 2.5 mg PO DAILY Qty: 0 RF: 0 Novolin R Regular U-100 Insuln 100 unit/mL Solution 1 sliding scale dose SUBCUT USEASDIRECTD RF: 0 artificial tears with lanolin Ointment 1 applic OPB QID RF: 0 Changed Novolin 70/30 U-100 Insulin 100 unit/mL (70-30) suspension 35 unit SUBCUT BIDM Qty: 0 RF: 0 Discontinued amiodarone 200 mg tablet 200 mg PO BID RF: 0 Novolin 70/30 U-100 Insulin 100 unit/mL (70-30) suspension 25 unit SUBCUT QAM RF: 0 Discharge Orders: Discharge Order (Routine); Ordered 07/16/20 Ordered By: Nayana Holley Admission Data Admit Date/Time: 07/06/20 02:59 Attending Provider: Nayana Holley Admit Provider: Tiago Wiggins Primary Care Provider: Cheyenne MERRILL Other Providers: Tiago Wiggins Coding Level of Care Code D/C Day Management >30 mins Diagnoses Acute respiratory failure with hypoxia J96.01 Multifocal pneumonia J18.9 Atrial fibrillation with RVR I48.91 Ischemic cardiomyopathy I25.5 Acute on chronic systolic ACC/AHA stage C congestive heart failure I50.23 Hyperglycemia due to type 2 diabetes mellitus E11.65 Intractable hiccups R06.6 Gout M10.9 Hypertension I10 Coronary artery disease I25.10 Dyslipidemia E78.5 GERD (gastroesophageal reflux disease) K21.9 Sinusitis J32.9 DVT prophylaxis Z29.9
== END 2020-07-16 16:31 | DRG 193 ==
LOC: ED 00:56 → 2S 02:59 → SUATTDRO 02:59 → 2S 05:35 → 3W 07-14 18:12